=== PATIENT | male | born 1965 | race Caucasian/White ===

== ENCOUNTER → 2017-02-21 | Outpatient (CLI) | payer OTHER ==
[~2017-02-21] MED LIST: ALLO100T PO; AML5T PO; ATR20T PO; GOUT MED; HYDR25TA4 PO; INSU100I14 SQ; INSU100I16 SQ; LSNP10T PO
== END ==
LOC: WOUNDCARE 08:57
PROVIDERS: ATTEND Nurse Practitioner
DX: E11.621 Type 2 diabetes mellitus with foot ulcer (principal); L97.512 Non-pressure chronic ulcer of other part of right foot with fat layer exposed; L03.115 Cellulitis of right lower limb
CPT/HCPCS: 99214

== ENCOUNTER → 2017-02-28 | Outpatient (CLI) | payer OTHER | LOC: WOUNDCARE 09:05 | PROVIDERS: ATTEND Nurse Practitioner | DX: E11.621 Type 2 diabetes mellitus with foot ulcer (principal); L97.512 Non-pressure chronic ulcer of other part of right foot with fat layer exposed; L03.115 Cellulitis of right lower limb | CPT/HCPCS: 11042 ==

== ENCOUNTER → 2017-03-07 | Outpatient (CLI) | payer OTHER | LOC: WOUNDCARE 09:26 | PROVIDERS: ATTEND Nurse Practitioner | DX: E11.621 Type 2 diabetes mellitus with foot ulcer (principal); L97.512 Non-pressure chronic ulcer of other part of right foot with fat layer exposed; L03.115 Cellulitis of right lower limb | CPT/HCPCS: 11042 ==

== ENCOUNTER → 2017-03-14 | Outpatient (CLI) | payer OTHER | LOC: WOUNDCARE 09:18 | PROVIDERS: ATTEND Nurse Practitioner | DX: E11.621 Type 2 diabetes mellitus with foot ulcer (principal); L97.512 Non-pressure chronic ulcer of other part of right foot with fat layer exposed; L03.115 Cellulitis of right lower limb | CPT/HCPCS: 11042 ==

== ENCOUNTER → 2017-03-21 | Outpatient (CLI) | payer OTHER | LOC: WOUNDCARE 09:17 | PROVIDERS: ATTEND Nurse Practitioner | DX: E11.621 Type 2 diabetes mellitus with foot ulcer (principal); L97.512 Non-pressure chronic ulcer of other part of right foot with fat layer exposed | CPT/HCPCS: 11042 ==

== ENCOUNTER → 2017-03-28 | Outpatient (CLI) | payer OTHER | LOC: WOUNDCARE 09:20 | PROVIDERS: ATTEND Nurse Practitioner | DX: E11.621 Type 2 diabetes mellitus with foot ulcer (principal); L97.512 Non-pressure chronic ulcer of other part of right foot with fat layer exposed; L03.115 Cellulitis of right lower limb | CPT/HCPCS: 99212 ==

== ENCOUNTER 2019-08-14 05:38 | Outpatient (CLI) | payer OTHER ==
[~2019-08-14] VITALS: Ht 180.3 cm; Wt 113.6 kg
[2019-08-14] MEDS ORDERED: METF-399 PO (11:53)
[2019-08-14] MEDS ORDERED: ATOR20TA66 PO (11:53)
[2019-08-14] MEDS ORDERED: LISI-552 PO (11:53)
[2019-08-14] MEDS ORDERED: INSU100I14 SQ (11:53)
== END 2019-08-14 11:59 | disposition home or self-care (01) ==
LOC: PREOP 05:38
PROVIDERS: ATTEND Specialist
DX: Z01.818 Encounter for other preprocedural examination (principal)

== ENCOUNTER 2019-08-16 06:41 | Day surgery (SDC) | payer MEDICAID, OTHER ==
[~2019-08-16] VITALS: Ht 180.3 cm; Wt 113.6 kg
[~2019-08-16 06:41] MED LIST changes: +ATOR20TA66 PO; +LISI-552 PO; +METF-399 PO
[2019-08-16] MEDS ORDERED: POVIDONE (BETADINE) OPHTH SOLN 5% 30 ML OP ONE (07:00)
[2019-08-16] MEDS: TETRACAINE 0.5% OPHTH SOLN 4 ML BTL (SINGLE DOSE ONLY) OU PRN ×4 (07:00→07:22)
[2019-08-16] MEDS ORDERED: TIMOLOL MALEATE 0.5% 5 ML (TIMOPTIC) BTL OU PRN (07:00)
[2019-08-16] MEDS ORDERED: LIDOCAINE PF 1% 2 ML VIAL IR PRN (07:00)
[2019-08-16] MEDS ORDERED: MOXIFLOXACIN OPHTH SOLN 5 MG/ML 0.3 ML SYRINGE OP ONE (07:00)
[2019-08-16 07:01] VITALS: BP 140/95
[2019-08-16] MEDS ORDERED: MIDAZOLAM 2 MG/2 ML (VERSED) VIAL ONE ×2 (07:10→08:33)
[2019-08-16] MEDS: PHENYLEPHRINE 10% OPHTH (NEO-SYN) 5 ML BTL OU SCH ×3 (07:11→07:22)
[2019-08-16] MEDS: CYCLOPENTOLATE 1% (CYCLOGYL) 2 ML DROPS OP SCH ×3 (07:11→07:22)
--- NOTE | 2019-08-16 08:28 | Ophthalmologist Pre-Op Note ---
Pre-Operative Progress Note H&P Reviewed The H&P was reviewed, patient examined and no changes noted. Date H&P Reviewed: Aug 16, 2019 Time H&P Reviewed: 08:26 Pre-Op Dx Cataract, Right Eye CHANDU CANO MD Aug 16, 2019 08:26
[2019-08-16] MEDS ORDERED: acetaZOLAMIDE ER 500 MG CAP (DIAMOX SEQUELS) PO ONE (08:30)
[2019-08-16] MEDS ORDERED: proPOfol 200 MG/20 ML (DIPRIVAN) VIAL IV ONE (08:42)
--- NOTE | 2019-08-16 08:49 | Ophthalmology Operative Report ---
Cataract removal/placement IOL PREOPERATIVE DIAGNOSIS: 1. Mature Cataract Right Eye 2. Stain the anterior capsule with Vision Blue. POSTOPERATIVE DIAGNOSIS: 1. Mature Cataract Right Eye 2. Stain the anterior capsule with Vision Blue. PROCEDURE: 1. Cataract removal and placement of posterior chamber implant, right eye. 2. Stain the anterior capsule with Vision Blue. SURGEON: Everette Cano ANESTHESIA: Topical with sedation COMPLICATIONS: None ESTIMATED BLOOD LOSS: Minimal DESCRIPTION OF PROCEDURE: After proper informed consent was obtained, the patient was taken to the Operating Room and the right eye was anesthetized with tetracaine. The right eye was then prepped and draped in the usual manner. A wire lid speculum was placed. A paracentesis was made at the left hand position. Preservative free lidocaine was injected into anterior chamber followed by viscoelastic. A clear corneal incision was made in the temporal position. A capsulorrhexis was performed and the central nuclear and cortical material were removed. Vision blue was used to visualize capsule. The posterior capsule was polished and Nirmal 20.0 AU00T0 IOL was placed into the capsular bag. The residual viscoela stic was aspirated and balanced saline solution was injected into the anterior chamber. Moxifloxacin was injected into the anterior chamber. The wound was checked and found to be water tight. The patient tolerated the procedure well without complications. EVERETTE CANO MD Aug 16, 2019 08:49
[2019-08-16 09:20] VITALS: BP 158/92
== END 2019-08-16 09:20 | disposition home or self-care (01) ==
LOC: SDC 06:41
PROVIDERS: ATTEND Specialist
DX: E11.36 Type 2 diabetes mellitus with diabetic cataract (principal); H25.89 Other age-related cataract; I10 Essential (primary) hypertension; E78.00 Pure hypercholesterolemia, unspecified; E78.5 Hyperlipidemia, unspecified; F17.210 Nicotine dependence, cigarettes, uncomplicated; Z79.4 Long term (current) use of insulin
CPT/HCPCS: 82962

== ENCOUNTER 2019-11-05 09:05 | Outpatient (RCR) | payer MEDICAID ==
[~2019-11-05] VITALS: Ht 180.3 cm; Wt 113.6 kg
== END 2019-11-05 15:49 | disposition home or self-care (01) ==
LOC: PREOP 09:05
PROVIDERS: ATTEND Specialist
DX: Z01.818 Encounter for other preprocedural examination (principal); Z11.59 Encounter for screening for other viral diseases
CPT/HCPCS: 87635

== ENCOUNTER 2019-11-08 07:36 | Day surgery (SDC) | payer MEDICAID, OTHER ==
[~2019-11-08] VITALS: Ht 180.3 cm; Wt 113.6 kg
[2019-11-08] MEDS ORDERED: MOXIFLOXACIN OPHTH SOLN 5 MG/ML 0.3 ML SYRINGE OP ONE (07:45)
[2019-11-08] MEDS ORDERED: LIDOCAINE PF 1% 2 ML VIAL IR PRN (07:45)
[2019-11-08] MEDS ORDERED: POVIDONE (BETADINE) OPHTH SOLN 5% 30 ML OP ONE (07:45)
[2019-11-08] MEDS ORDERED: TIMOLOL MALEATE 0.5% 5 ML (TIMOPTIC) BTL OU PRN (07:45)
[2019-11-08 07:52] VITALS: BP 149/107
[2019-11-08] MEDS: TETRACAINE 0.5% OPHTH SOLN 4 ML BTL (SINGLE DOSE ONLY) OU PRN ×4 (07:54→08:17)
[2019-11-08] MEDS: CYCLOPENTOLATE 1% (CYCLOGYL) 2 ML DROPS OP SCH ×3 (08:05→08:17)
[2019-11-08] MEDS: PHENYLEPHRINE 10% OPHTH (NEO-SYN) 5 ML BTL OU SCH ×3 (08:05→08:17)
[2019-11-08] MEDS ORDERED: acetaZOLAMIDE ER 500 MG CAP (DIAMOX SEQUELS) PO ONE (08:30)
[2019-11-08] MEDS ORDERED: MIDAZOLAM 2 MG/2 ML (VERSED) VIAL ONE (08:44)
--- NOTE | 2019-11-08 08:48 | Ophthalmologist Pre-Op Note ---
Pre-Operative Progress Note H&P Reviewed The H&P was reviewed, patient examined and no changes noted. Date H&P Reviewed: November 08, 2019 Time H&P Reviewed: 08:48 Pre-Op Dx Cataract, Left Eye CHANDU CANO MD November 08, 2019 08:48
--- NOTE | 2019-11-08 09:14 | Ophthalmology Operative Report ---
Cataract removal/placement IOL PREOPERATIVE DIAGNOSIS: 1. Mature Cataract Left Eye 2. Stain the anterior capsule with Vision Blue. POSTOPERATIVE DIAGNOSIS: 1. Mature Cataract Left Eye 2. Stain the anterior capsule with Vision Blue. PROCEDURE: 1. Cataract removal and placement of posterior chamber implant, left eye. 2. Stain the anterior capsule with Vision Blue. SURGEON: Everette Cano ANESTHESIA: Topical with sedation COMPLICATIONS: None ESTIMATED BLOOD LOSS: Minimal DESCRIPTION OF PROCEDURE: After proper informed consent was obtained, the patient, 54 male ,was taken to the Operating Room and the left eye was anesthetized with tetracaine. The left eye was then prepped and draped in the usual manner. A wire lid speculum was placed. A paracentesis was made at the left hand position. Preservative free lidocaine was injected into anterior chamber followed by viscoelastic. A clear corneal incision was made in the temporal position. A capsulorrhexis was performed and the central nuclear and cortical material were removed. Vision blue was used to visualize capsule. The posterior capsule was polished and Nirmal AU00T0 19.5 IOL was placed into the capsular bag. The residual vis coelastic was aspirated and balanced saline solution was injected into the anterior chamber. Moxifloxacin was injected into the anterior chamber. The wound was checked and found to be water tight. The patient tolerated the procedure well without complications. EVERETTE CANO MD November 08, 2019 09:13
[2019-11-08 09:20] VITALS: BP 140/98
--- NOTE | 2019-11-08 12:39 | Anesthesia-General Post-Op ---
MAC Patient Condition Mental Status/LOC: Same as Preop Cardiovascular: Satisfactory Nausea/Vomiting: Absent Respiratory: Satisfactory Pain: Controlled Complications: Absent Post Op Complications Complications None Follow Up Care/Instructions Patient Instructions None needed. Anesthesiology Discharge Order Discharge Order Patient is doing well, no complaints, stable vital signs, no apparent adverse anesthesia problems. No complications reported per nursing. NILS DODD CRNA November 08, 2019 12:39
== END 2019-11-08 09:20 | disposition home or self-care (01) ==
LOC: SDC 07:36
PROVIDERS: ATTEND Specialist
DX: E11.36 Type 2 diabetes mellitus with diabetic cataract (principal); H25.12 Age-related nuclear cataract, left eye; E78.5 Hyperlipidemia, unspecified; E78.00 Pure hypercholesterolemia, unspecified; I10 Essential (primary) hypertension; F17.200 Nicotine dependence, unspecified, uncomplicated; Z79.899 Other long term (current) drug therapy; Z79.84 Long term (current) use of oral hypoglycemic drugs
CPT/HCPCS: 82962

== ENCOUNTER 2019-11-10 03:14 | Inpatient (IN) | payer MEDICAID ==
[~2019-11-10] VITALS: Ht 180.3 cm; Wt 162.4 kg
[2019-11-10] VITALS (17 sets, daily range): BP systolic 97–150; BP diastolic 61–101
--- OUTSIDE RECORDS SUMMARY | 2019-11-10 03:19 | XMS REPORT ---
Author Author Delon CAROLINA Organization [facility] Address [address] [place] [address] Care Team Providers Care Line Up Worker Name Role Phone VILLA CAROLINA Unavailable PROBLEMS Unknown Problems ALLERGIES No Known Allergies ENCOUNTERS Encounter Location Date Diagnosis [facility] [address] [facility] [id number] [place] [address] October, Pain of left middle finger M 79.645 IMMUNIZATIONS Vaccine Route Administration Date Status ROCEPHIN 1 GM (IM) IM Intramuscular October 26, 2017 Administered SOCIAL HISTORY Never Assessed REASON FOR VISIT infected finger Pt c/o swollen middle finger on L hand for several days Iza ndiaye MA PLAN OF CARE Activity Details Follow Up prn Reason: VITAL SIGNS Weight 296.4 lbs 2017-10-26 Temperature 97.9 degrees Fahrenheit 2017-10-26 Heart Rate 90 bpm 2017-10-26 Respiratory Rate 20 2017-10-26 Blood pressure systolic 136 mmHg 2017-10-26 Blood pressure diastolic 76 mmHg 2017-10-26 MEDICATIONS Medication Instructions Dosage Frequency Start Date End Date Duration S tatus Bactrim DS 800-160 MG Orally Twice a day starting tomorrow . 1 tabl et October, October, 10 day(s) Active Ibuprofen 800 MG Orally Three times a day 1 tablet with food or milk as needed 8h October, Active RESULTS No Results PROCEDURES Procedure Date Ordered Result Body Site ROCEPHIN 1 GM (IM) October 26, 2017 THER/PROPH/DIAG INJ, SC/IM October 26, 2017 INSTRUCTIONS MEDICATIONS ADMINISTERED No Known Medications MEDICAL (GENERAL) HISTORY Type Description Date Medical History htn Medical History dm Medical History high cholesterol Medical History gout
--- OUTSIDE RECORDS SUMMARY | 2019-11-10 03:19 | XMS REPORT | Continuity of Care Document ---
Author Organization Unknown Address Unknown Phone Unavailable Allergies Active Description Code Type Severity Reaction Onset Reported/Identified Relationship to Patient Clinical Status Yes NO KNOWN DRUG ALLERGIES UNKNOWN NO KNOWN DRUG ALLERG Yes NO KNOWN DRUG ALLERGIES UNKNOWN UNKNOWN Yes No Known Drug Allergies [id number] Drug Allergy Unknown N/A 02/26/2014 Medications There is no data. Problems Date Dx Coded Attending Type Code Diagnosis Diagnosed By 05/11/1548 JEROME CHAIDEZ, CHANDU Briggs Ot Z01.818 ENCOUNTER FOR OTHER PREPROCEDURAL EXAMIN 05/11/1548 CHANDU CANO MD Ot Z11.59 ENCOUNTER FOR SCREENING FOR OTHER VIRAL 03/03/2014 EUSEBIO GILL DOI Ot 250.62 DIAB W NEURO MANIFEST, TYPE II OR UNSPEC 03/03/2014 JAIRO COREY GAYATRI Ot 274.9 GOUT NOS 03/03/2014 JAIRO COREY GAAYTRI Ot 276.1 HYPOSMOLALITY 03/03/2014 JAIRO COREY GAYATRI Ot 278.01 MORBID OBESITY 03/03/2014 JAIRO COREY GAYATRI Ot 278.03 OBESITY HYPOVENTILATION SYNDROME 03/03/2014 JAIRO COREY GAYATRI Ot 289.0 SECONDARY POLYCYTHEMIA 03/03/2014 JAIRO COREY GAYATRI Ot 327.23 OBSTRUCTIVE SLEEP APNEA (ADULT) (PEDIATR 03/03/2014 JAIRO COREY GAYATRI Ot 344.1 PARAPLEGIA NOS 03/03/2014 JAIRO COREY GAYATRI Ot 357.2 NEUROPATHY IN DIABETES 03/03/2014 JAIRO COREY GAYATRI Ot 401.9 HYPERTENSION NOS 03/03/2014 JAIRO COREY GAYATRI Ot 457.1 OTHER LYMPHEDEMA 03/03/2014 JAIRO COREY AGYATRI Ot 459.81 VENOUS INSUFFICIENCY NOS 03/03/2014 JAIRO COREY GAYATRI Ot 584.9 ACUTE RENAL FAILURE, UNSPECIFIED 03/03/2014 JAIRO COREY GAYATRI Ot 682.6 CELLULITIS OF LEG 03/03/2014 JAIRO COREY GAYATRI Ot 706.3 SEBORRHEA 03/03/2014 GILLGAYATRI KNIGHT DO Ot 707.10 ULCER OF LOWER LIMB NOS 03/03/2014 GILLGAYATRI KNIGHT DO Ot 733.90 BONE CARTILAGE DIS NOS 03/03/2014 GILLGAYATRI KNIGHT DO Ot 788.30 UNSPECIFIED URINARY INCONTINENCE 03/03/2014 GILLGAYATRI KNIGHT DO Ot V03.82 PROPHYLACTIC VACC AGAINST STREPTOCOCCUS 03/03/2014 GILLGAYATRI KNIGHT DO Ot V15.82 HISTORY OF TOBACCO USE 03/03/2014 GAYATRI GILL DO Ot V85.43 BODY MASS INDEX 50.0-59.9, ADULT 01/31/2017 W 250.90 ISRAEL BETES MELLITUS WITH UNSPECIFIED COMPLICATION, TYPE II OR UNSPECIFIED TYPE, NOT STATED UNCONTROLLED 01/31/2017 W 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 01/31/2017 W 401.9 UNSP ECIFIED ESSENTIAL HYPERTENSION 01/31/2017 W 681.10 EUNICE LULITIS AND ABSCESS OF TOE, UNSPECIFIED 01/31/2017 W E11.8 TYPE 2 DIABETES MELLITUS WITH UNSPECIFIED COMPLICATIONS 01/31/2017 W E78.5 HYPE RLIPIDEMIA, UNSPECIFIED 01/31/2017 W I10 ESSENT IAL (PRIMARY) HYPERTENSION 01/31/2017 W L03.031 CE LLULITIS OF RIGHT TOE 02/02/2017 Adelina Anderson W 250.92 DIABETES MELLITUS WITH UNSPECIFIED COMPLICATION, TYPE II OR UNSPECIFIED TYPE, UNCONTROLLED 02/02/2017 Adelina Anderson W 272.8 OTHER DISORDERS OF LIPOID METABOLISM 02/02/2017 Adelina Anderson W 401.9 UNSPECIFIED ESSENTIAL HYPERTENSION 02/02/2017 Adelina Anderson W 681.10 CELLULITIS AND ABSCESS OF TOE, UNSPECIFIED 02/02/2017 Adelina Anderson W E11.8 TYPE 2 DIABETES MELLITUS WITH UNSPECIFIED COMPLICATIONS 02/02/2017 Adelina Anderson W E78.5 HYPERLIPIDEMIA, UNSPECIFIED 02/02/2017 Adelina Anderson W I10 ESSENTIAL (PRIMARY) HYPERTENSION 02/02/2017 Adelina Anderson W L03.031 CELLULITIS OF RIGHT TOE 02/02/2017 W 250.92 ISRAEL BETES MELLITUS WITH UNSPECIFIED COMPLICATION, TYPE II OR UNSPECIFIED TYPE, UNCONTROLLED 02/02/2017 W 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 02/02/2017 W 401.9 UNSP ECIFIED ESSENTIAL HYPERTENSION 02/02/2017 W 681.10 EUNICE LULITIS AND ABSCESS OF TOE, UNSPECIFIED 02/02/2017 W E11.8 TYPE 2 DIABETES MELLITUS WITH UNSPECIFIED COMPLICATIONS 02/02/2017 W E78.5 HYPE RLIPIDEMIA, UNSPECIFIED 02/02/2017 W I10 ESSENT IAL (PRIMARY) HYPERTENSION 02/02/2017 W L03.031 CE LLULITIS OF RIGHT TOE 02/02/2017 W V15.81 PER CASSIE HISTORY OF NONCOMPLIANCE WITH MEDICAL TREATMENT, PRESENTING HAZARDS TO HEALTH 02/02/2017 W Z91.19 PAT IENT'S NONCOMPLIANCE WITH OTHER MEDICAL TREATMENT AND REGIMEN 02/07/2017 W 250.92 ISRAEL BETES MELLITUS WITH UNSPECIFIED COMPLICATION, TYPE II OR UNSPECIFIED TYPE, UNCONTROLLED 02/07/2017 A 681.10 EUNICE LULITIS AND ABSCESS OF TOE, UNSPECIFIED 02/07/2017 W E11.8 TYPE 2 DIABETES MELLITUS WITH UNSPECIFIED COMPLICATIONS 02/07/2017 A L03.031 CE LLULITIS OF RIGHT TOE 02/10/2017 W 250.90 ISRAEL BETES MELLITUS WITH UNSPECIFIED COMPLICATION, TYPE II OR UNSPECIFIED TYPE, NOT STATED UNCONTROLLED 02/10/2017 W 681.10 EUNICE LULITIS AND ABSCESS OF TOE, UNSPECIFIED 02/10/2017 W E11.8 TYPE 2 DIABETES MELLITUS WITH UNSPECIFIED COMPLICATIONS 02/10/2017 W L03.031 CE LLULITIS OF RIGHT TOE 02/16/2017 W 249.60 SEC ONDARY DIABETES MELLITUS WITH NEUROLOGICAL MANIFESTATIONS, NOT STATED UNCONTROLLED, OR UNSPECIFIED 02/16/2017 W 250.80 ISRAEL BETES MELLITUS WITH OTHER SPECIFIED MANIFESTATIONS, TYPE II OR UNSPECIFIED TYPE, NOT STATED UNCONTROLLED 02/16/2017 W 681.10 EUNICE LULITIS AND ABSCESS OF TOE, UNSPECIFIED 02/16/2017 W E08.40 ISRAEL BETES MELLITUS DUE TO UNDERLYING CONDITION WITH DIABETIC NEUROPATHY, UNSPECIFIED 02/16/2017 W E11.621 TY PE 2 DIABETES MELLITUS WITH FOOT ULCER 02/16/2017 W E11.69 TYP E 2 DIABETES MELLITUS WITH OTHER SPECIFIED COMPLICATION 02/16/2017 W L03.031 CE LLULITIS OF RIGHT TOE 02/16/2017 W V15.81 PER CASSIE HISTORY OF NONCOMPLIANCE WITH MEDICAL TREATMENT, PRESENTING HAZARDS TO HEALTH 02/16/2017 W Z91.14 PAT IENT'S OTHER NONCOMPLIANCE WITH MEDICATION REGIMEN 03/01/2017 JEANE DE GUZMAN BASS SINGER Ot E11.621 TYPE 2 DIABETES MELLITUS WITH FOOT ULCER 03/01/2017 JEANE DE GUZMAN BASS SINGER Ot L03.115 CELLULITIS OF RIGHT LOWER LIMB 03/01/2017 JEANE DE GUZMAN BASS SINGER Ot L97.512 NON-PRS CHRONIC ULCER OTH PRT RIGHT FOOT 03/13/2017 JEANE DE GUZMAN APRN Ot E11.621 TYPE 2 DIABETES MELLITUS WITH FOOT ULCER 03/13/2017 JEANE DE GUZMAN BASS SINGER Ot L03.115 CELLULITIS OF RIGHT LOWER LIMB 03/13/2017 JEANE DE GUZMAN BASS SINGER Ot L97.512 NON-PRS CHRONIC ULCER OTH PRT RIGHT FOOT 03/14/2017 JEANE DE GUZMAN BASS SINGER Ot E11.621 TYPE 2 DIABETES MELLITUS WITH FOOT ULCER 03/14/2017 JEANE DE GUZMAN BASS SINGER Ot L03.115 CELLULITIS OF RIGHT LOWER LIMB 03/14/2017 JEANE DE GUZMAN APRN Ot L97.512 NON-PRS CHRONIC ULCER OTH PRT RIGHT FOOT 2017 JEANE DE GUZMAN BASS SINGER Ot E11.621 TYPE 2 DIABETES MELLITUS WITH FOOT ULCER 2017 JEANE DE GUZMAN BASS SINGER Ot L03.115 CELLULITIS OF RIGHT LOWER LIMB 2017 JEANE DE GUZMAN APRN Ot L97.512 NON-PRS CHRONIC ULCER OTH PRT RIGHT FOOT 03/24/2017 W 249.80 SEC ONDARY DIABETES MELLITUS WITH OTHER SPECIFIED MANIFESTATIONS, NOT STATED UNCONTROLLED, OR UNSPECIFIED 03/24/2017 W 250.80 ISRAEL BETES MELLITUS WITH OTHER SPECIFIED MANIFESTATIONS, TYPE II OR UNSPECIFIED TYPE, NOT STATED UNCONTROLLED 03/24/2017 W E08.621 DI ABETES MELLITUS DUE TO UNDERLYING CONDITION WITH FOOT ULCER 03/24/2017 W E11.4 TYPE 2 DIABETES MELLITUS WITH NEUROLOGICAL COMPLICATIONS 03/24/2017 W E11.65 TYP E 2 DIABETES MELLITUS WITH HYPERGLYCEMIA 03/28/2017 JEANE DE GUZMAN BASS SINGER Ot E11.621 TYPE 2 DIABETES MELLITUS WITH FOOT ULCER 03/28/2017 JEANE DE GUZMAN BASS SINGER Ot L03.115 CELLULITIS OF RIGHT LOWER LIMB 03/28/2017 JEANE DE GUZMAN BASS SINGER Ot L97.512 NON-PRS CHRONIC ULCER OTH PRT RIGHT FOOT 04/05/2017 JEANE DE GUZMAN APRN Ot E11.621 TYPE 2 DIABETES MELLITUS WITH FOOT ULCER 04/05/2017 JEANE DE GUZMAN APRN Ot L03.115 CELLULITIS OF RIGHT LOWER LIMB 04/05/2017 JEANE DE GUZMAN APRN Ot L97.512 NON-PRS CHRONIC ULCER OTH PRT RIGHT FOOT 04/06/2017 W 250.80 ISRAEL BETES MELLITUS WITH OTHER SPECIFIED MANIFESTATIONS, TYPE II OR UNSPECIFIED TYPE, NOT STATED UNCONTROLLED 04/06/2017 W 250.90 ISRAEL BETES MELLITUS WITH UNSPECIFIED COMPLICATION, TYPE II OR UNSPECIFIED TYPE, NOT STATED UNCONTROLLED 04/06/2017 W 681.10 EUNICE LULITIS AND ABSCESS OF TOE, UNSPECIFIED 04/06/2017 W E11.621 TY PE 2 DIABETES MELLITUS WITH FOOT ULCER 04/06/2017 W E11.8 TYPE 2 DIABETES MELLITUS WITH UNSPECIFIED COMPLICATIONS 04/06/2017 W L03.031 CE LLULITIS OF RIGHT TOE 04/06/2017 W V15.81 PER CASSIE HISTORY OF NONCOMPLIANCE WITH MEDICAL TREATMENT, PRESENTING HAZARDS TO HEALTH 04/11/2017 JEANE DE GUZMAN APRN Ot E11.621 TYPE 2 DIABETES MELLITUS WITH FOOT ULCER 04/11/2017 JEANE DE GUZMAN APRN Ot L97.512 NON-PRS CHRONIC ULCER OTH PRT RIGHT FOOT 05/10/2017 W 250.80 ISRAEL BETES MELLITUS WITH OTHER SPECIFIED MANIFESTATIONS, TYPE II OR UNSPECIFIED TYPE, NOT STATED UNCONTROLLED 05/10/2017 W 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 05/10/2017 W 278.00 OBE SITY, UNSPECIFIED 05/10/2017 W 401.9 UNSP ECIFIED ESSENTIAL HYPERTENSION 05/10/2017 W E11.621 TY PE 2 DIABETES MELLITUS WITH FOOT ULCER 05/10/2017 W E66.9 OBES ITY, UNSPECIFIED 05/10/2017 W E78.5 HYPE RLIPIDEMIA, UNSPECIFIED 05/10/2017 W I10 ESSENT IAL (PRIMARY) HYPERTENSION 05/10/2017 W V15.81 PER CASSIE HISTORY OF NONCOMPLIANCE WITH MEDICAL TREATMENT, PRESENTING HAZARDS TO HEALTH 05/10/2017 W Z91.14 PAT IENT'S OTHER NONCOMPLIANCE WITH MEDICATION REGIMEN 05/11/2017 Rhiannon Pro W 272.8 OTHER DISORDERS OF LIPOID METABOLISM 05/11/2017 Rhiannon Pro W E78.5 HYPERLIPIDEMIA, UNSPECIFIED 05/11/2017 Pro, Rhiannon W 272.8 OTHER DISORDERS OF LIPOID METABOLISM 05/11/2017 Pro, Rhiannon W 401.9 UNSPECIFIED ESSENTIAL HYPERTENSION 05/11/2017 Pro, Rhiannon W E78.5 HYPERLIPIDEMIA, UNSPECIFIED 05/11/2017 Pro, Jasonu W I10 ESSENTIAL (PRIMARY) HYPERTENSION 05/11/2017 Pro, Rhiannon W 250.00 DIABETES MELLITUS WITHOUT MENTION OF COMPLICATION, TYPE II OR UNSPECIFIED TYPE, NOT STATED UNCONTROLLED 05/11/2017 Pro, Rhiannon W 272.8 OTHER DISORDERS OF LIPOID METABOLISM 05/11/2017 Pro, Rhiannon W 401.9 UNSPECIFIED ESSENTIAL HYPERTENSION 05/11/2017 Pro, Rhiannon W E11.9 TYPE 2 DIABETES MELLITUS WITHOUT COMPLICATIONS 05/11/2017 Pro, Rhiannon W E78.5 HYPERLIPIDEMIA, UNSPECIFIED 05/11/2017 Pro, Rhiannon W I10 ESSENTIAL (PRIMARY) HYPERTENSION 05/11/2017 W 250.00 ISRAEL BETES MELLITUS WITHOUT MENTION OF COMPLICATION, TYPE II OR UNSPECIFIED TYPE, NOT STATED UNCONTROLLED 05/11/2017 W 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 05/11/2017 W 401.9 UNSP ECIFIED ESSENTIAL HYPERTENSION 05/11/2017 W E11.9 TYPE 2 DIABETES MELLITUS WITHOUT COMPLICATIONS 05/11/2017 W E78.5 HYPE RLIPIDEMIA, UNSPECIFIED 05/11/2017 W I10 ESSENT IAL (PRIMARY) HYPERTENSION 05/11/2017 Pro, Rhiannon W 250.00 DIABETES MELLITUS WITHOUT MENTION OF COMPLICATION, TYPE II OR UNSPECIFIED TYPE, NOT STATED UNCONTROLLED 05/11/2017 Pro, Rhiannon W 272.8 OTHER DISORDERS OF LIPOID METABOLISM 05/11/2017 Pro, Rhiannon W 401.9 UNSPECIFIED ESSENTIAL HYPERTENSION 05/11/2017 Pro, Rhiannon W E11.9 TYPE 2 DIABETES MELLITUS WITHOUT COMPLICATIONS 05/11/2017 Pro, Rhiannon W E78.5 HYPERLIPIDEMIA, UNSPECIFIED 05/11/2017 Pro, Jasonu W I10 ESSENTIAL (PRIMARY) HYPERTENSION 11/24/2017 W 112.3 CAND IDIASIS OF SKIN AND NAILS 11/24/2017 W 250.80 ISRAEL BETES MELLITUS WITH OTHER SPECIFIED MANIFESTATIONS, TYPE II OR UNSPECIFIED TYPE, NOT STATED UNCONTROLLED 11/24/2017 W 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 11/24/2017 W 278.00 OBE SITY, UNSPECIFIED 11/24/2017 W 305.1 TOBA SCLEROSCOPE TESTER USE DISORDER 11/24/2017 W 401.9 UNSP ECIFIED ESSENTIAL HYPERTENSION 11/24/2017 W B37.2 CAND IDIASIS OF SKIN AND NAIL 11/24/2017 W E11.65 TYP E 2 DIABETES MELLITUS WITH HYPERGLYCEMIA 11/24/2017 W E66.9 OBES ITY, UNSPECIFIED 11/24/2017 W E78.5 HYPE RLIPIDEMIA, UNSPECIFIED 11/24/2017 W I10 ESSENT IAL (PRIMARY) HYPERTENSION 11/24/2017 W V15.81 PER CASSIE HISTORY OF NONCOMPLIANCE WITH MEDICAL TREATMENT, PRESENTING HAZARDS TO HEALTH 11/24/2017 W Z72.0 TOBA SCLEROSCOPE TESTER USE 11/24/2017 W Z91.14 PAT IENT'S OTHER NONCOMPLIANCE WITH MEDICATION REGIMEN 11/24/2017 W Z91.19 PAT IENT'S NONCOMPLIANCE WITH OTHER MEDICAL TREATMENT AND REGIMEN 08/14/2019 JEROME CHAIDEZ, CHANDU L Ot Z01.818 ENCOUNTER FOR OTHER PREPROCEDURAL EXAMIN 08/14/2019 JEANE DE GUZMAN APRN Ot E11.621 TYPE 2 DIABETES MELLITUS WITH FOOT ULCER 08/14/2019 JEANE DE GUZMAN APRN Ot L03.115 CELLULITIS OF RIGHT LOWER LIMB 08/14/2019 JEANE DE GUZMAN APRN Ot L97.512 NON-PRS CHRONIC ULCER OTH PRT RIGHT FOOT 08/14/2019 JEANE DE GUZMAN APRN Ot E11.621 TYPE 2 DIABETES MELLITUS WITH FOOT ULCER 08/14/2019 JEANE DE GUZMAN APRN Ot L03.115 CELLULITIS OF RIGHT LOWER LIMB 08/14/2019 JEANE DE GUZMAN APRN Ot L97.512 NON-PRS CHRONIC ULCER OTH PRT RIGHT FOOT 08/14/2019 JEANE DE GUZMAN APRN Ot E11.621 TYPE 2 DIABETES MELLITUS WITH FOOT ULCER 08/14/2019 JEANE DE GUZMAN APRN Ot L03.115 CELLULITIS OF RIGHT LOWER LIMB 08/14/2019 GEGE, JEANE R BASS SINGER Ot L97.512 NON-PRS CHRONIC ULCER OTH PRT RIGHT FOOT 08/14/2019 GEGE, JEANE R BASS SINGER Ot E11.621 TYPE 2 DIABETES MELLITUS WITH FOOT ULCER 08/14/2019 GEGE, JEANE R BASS SINGER Ot L03.115 CELLULITIS OF RIGHT LOWER LIMB 08/14/2019 GEGE, JEANE R BASS SINGER Ot L97.512 NON-PRS CHRONIC ULCER OTH PRT RIGHT FOOT 08/14/2019 GEGE, JEANE R BASS SINGER Ot E11.621 TYPE 2 DIABETES MELLITUS WITH FOOT ULCER 08/14/2019 GEGE, JEANE R BASS SINGER Ot L97.512 NON-PRS CHRONIC ULCER OTH PRT RIGHT FOOT 08/14/2019 GEGE, JEANE R BASS SINGER Ot E11.621 TYPE 2 DIABETES MELLITUS WITH FOOT ULCER 08/14/2019 GEGE, JEANE R BASS SINGER Ot L03.115 CELLULITIS OF RIGHT LOWER LIMB 08/14/2019 GEGE JEANE R BASS SINGER Ot L97.512 NON-PRS CHRONIC ULCER OTH PRT RIGHT FOOT 08/16/2019 CHANDU CANO MD Ot E11.36 TYPE 2 DIABETES MELLITUS WITH DIABETIC C 08/16/2019 CHANDU CANO MD Ot E78.00 PURE HYPERCHOLESTEROLEMIA, UNSPECIFIED 08/16/2019 CHANDU CANO MD Ot E78 .5 HYPERLIPIDEMIA, UNSPECIFIED 08/16/2019 CHANDU CANO MD Ot F17.210 NICOTINE DEPENDENCE, CIGARETTES, UNCOMPL 08/16/2019 CHANDU CANO MD Ot H25.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 08/16/2019 CHANDU CANO MD Ot I10 ESSENTIAL (PRIMARY) HYPERTENSION 08/16/2019 CHANDU CANO MD Ot 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 08/20/2019 CHANDU CANO MD Ot E11.36 TYPE 2 DIABETES MELLITUS WITH DIABETIC C 08/20/2019 CHANDU CANO MD Ot E78.00 PURE HYPERCHOLESTEROLEMIA, UNSPECIFIED 08/20/2019 CHANDU CANO MD Ot E78 .5 HYPERLIPIDEMIA, UNSPECIFIED 08/20/2019 CHANDU CANO MD Ot F17.210 NICOTINE DEPENDENCE, CIGARETTES, UNCOMPL 08/20/2019 CHANDU CANO MD Ot H25.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 08/20/2019 CHANDU CANO MD Ot I10 ESSENTIAL (PRIMARY) HYPERTENSION 08/20/2019 CHANDU CANO MD Ot 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 09/09/2019 JEANE DE GUZMAN R BASS SINGER Ot E11.621 TYPE 2 DIABETES MELLITUS WITH FOOT ULCER 09/09/2019 JEANE DE GUZMAN R BASS SINGER Ot L03.115 CELLULITIS OF RIGHT LOWER LIMB 09/09/2019 JEANE DE GUZMAN R BASS SINGER Ot L97.512 NON-PRS CHRONIC ULCER OTH PRT RIGHT FOOT 09/09/2019 GEGE JEANE R BASS SINGER Ot E11.621 TYPE 2 DIABETES MELLITUS WITH FOOT ULCER 09/09/2019 GEGE JEANE R BASS SINGER Ot L03.115 CELLULITIS OF RIGHT LOWER LIMB 09/09/2019 GEGE JEANE R BASS SINGER Ot L97.512 NON-PRS CHRONIC ULCER OTH PRT RIGHT FOOT 09/09/2019 JEANE DE GUZMAN R BASS SINGER Ot E11.621 TYPE 2 DIABETES MELLITUS WITH FOOT ULCER 09/09/2019 GEGE JEANE R BASS SINGER Ot L03.115 CELLULITIS OF RIGHT LOWER LIMB 09/09/2019 GEGE JEANE R BASS SINGER Ot L97.512 NON-PRS CHRONIC ULCER OTH PRT RIGHT FOOT 09/09/2019 JEANE DE GUZMAN R BASS SINGER Ot E11.621 TYPE 2 DIABETES MELLITUS WITH FOOT ULCER 09/09/2019 GEGE JEANE R BASS SINGER Ot L03.115 CELLULITIS OF RIGHT LOWER LIMB 09/09/2019 GEGE JEANE R BASS SINGER Ot L97.512 NON-PRS CHRONIC ULCER OTH PRT RIGHT FOOT 09/09/2019 JEANE DE GUZMAN R BASS SINGER Ot E11.621 TYPE 2 DIABETES MELLITUS WITH FOOT ULCER 09/09/2019 GEGE JEANE R BASS SINGER Ot L97.512 NON-PRS CHRONIC ULCER OTH PRT RIGHT FOOT 09/09/2019 GEGE JEANE R BASS SINGER Ot E11.621 TYPE 2 DIABETES MELLITUS WITH FOOT ULCER 09/09/2019 GEGE JEANE R BASS SINGER Ot L03.115 CELLULITIS OF RIGHT LOWER LIMB 09/09/2019 GEGE JEANE R BASS SINGER Ot L97.512 NON-PRS CHRONIC ULCER OTH PRT RIGHT FOOT Procedures There is no data. Results Test Result Range CBC with Auto Diff - 07/21/16 08:05 Baso% 0.40 % 0.00-2.50 Eos 0.1 K/uL 0.0-0.7 Eos% 0.7 % 0.0-7.0 Hct 52.3 % 42.0-52.0 Hgb 17.3 g/dL 14.0-17.0 Lym 2.18 K/uL 0.60-3.40 Lym% 20.6 % 10.0-50.0 MCH 27.9 pg 27.0-31.2 MCHC 33.1 g/dL 32.0-36.0 MCV 84.2 fL 80.0-97.0 Knox% 6.6 % 0.0-12.0 MPV 11.9 fL 7.4-10.0 Flaquito% 71.7 % 37.0-80.0 Plt 208 K/uL 150-400 RBC 6.21 M/uL 4.20-5.40 RDW 15.3 % 11.6-14.8 WBC 10.59 K/uL 5.00-10.00 Flaquito 7.60 K/uL 2.00-6.90 Knox 0.7 K/uL 0.0-0.9 Baso 0.0 K/uL 0.0-0.2 Hemoglobin A1C - 07/21/16 08:05 % A1C 14.30 Result Verified by Repeat Analysis % 5.40-6.60 AvGlu 432 mg/dL 70-110 Hemoglobin A1C - 02/02/17 09:30 % A1C 15.30 % 5.40-6.60 AvGlu 466 mg/dL 70-110 Microalb/Creat - 05/11/17 08:05 Microalb 60.0 mg/L 0.0-20.0 UMicroalb/UCreat 95.33 mg/g 0.00-100.00 Urine Creatinine 62.9 mg/dl 0.0-50.0 CMP - 03/22/19 14:58 GLUCOSE 457 mg/dL 65-99 UREA NITROGEN (BUN) 23 mg/dL 7-25 CREATININE 0.68 mg/dL 0.70-1.33 eGFR NON-AFR. [place] 108 mL/min/1.73m2 > OR = 60 eGFR 125 mL/min/1.73m2 > OR = 60 BUN/CREATININE RATIO 34 (calc) 6-22 SODIUM 138 mmol/L 135-146 POTASSIUM 4.2 mmol/L 3.5-5.3 CHLORIDE 100 mmol/L 98-110 CARBON DIOXIDE 25 mmol/L 20-32 CALCIUM 9.9 mg/dL 8.6-10.3 PROTEIN, TOTAL 7.0 g/dL 6.1-8.1 ALBUMIN 4.0 g/dL 3.6-5.1 GLOBULIN 3.0 g/dL (calc) 1.9-3.7 ALBUMIN/GLOBULIN RATIO 1.3 (calc) 1.0-2. 5 BILIRUBIN, TOTAL 0.4 mg/dL 0.2-1.2 ALKALINE PHOSPHATASE 99 U/L 40-115 AST 7 U/L 10-35 ALT 11 U/L 9-46 Capillary blood glucose measurement by g lucometer (mass/volume) - 08/16/19 07:08 Capillary blood glucose measurement by glucometer (mas s/volume) 142 mg/dL 70-110 Coronavirus SARS-CoV-2 SO 2018 - 0 12:55 Coronavirus Ab [Units/volume] in Serum Negative Negative Capillary blood glucose measurement by g lucometer (mass/volume) - 11/08/19 07:54 Capillary blood glucose measurement by glucometer (mas s/volume) 155 mg/dL 70-110 Encounters ACCT No. Visit Date/Time Discharge Status Pt. Type Provider Facility Loc./Unit Complaint [id number] 2019 14:00:00 2019 23:59: 59 [facility] [id number] 2019 14:00:00 Document Registration [id number] 05/11/2017 09:06:00 05/11/2017 23:59: 00 DIS Outpatient Rhiannon Pro [id number] 02/02/2017 11:52:00 02/02/2017 23:59: 00 DIS Outpatient Adelina Anderson [id number] 07/21/2016 08:44:00 07/21/2016 23:59: 00 DIS Outpatient Jose Fisher [id number] 11/24/2017 13:08:00 Document Registration [id number] 05/11/2017 07:59:00 Document Registration [id number] 05/10/2017 10:30:00 Document Registration [id number] 04/06/2017 08:31:00 Document Registration [id number] 03/24/2017 10:48:00 Document Registration [id number] 02/16/2017 11:12:00 Document Registration [id number] 02/10/2017 10:55:00 Document Registration [id number] 02/07/2017 14:06:00 Document Registration [id number] 02/02/2017 08:31:00 Document Registration [id number] 01/31/2017 10:00:00 Document Registration [id number] 11/08/2019 07:36:00 09:20:00 DIS Outpatient CHANDU CANO MD Via [facility] CATARACT LEFT EYE [id number] 11/05/2019 09:05:00 15:49:00 DIS Outpatient CHANDU CANO MD Via [facility] PREOP CATARACT LEFT EYE [id number] 08/30/2019 09:00:00 23:59:59 CLS Preadmit CHANDU CANO MD [facility] CATARACT LEFT EYE [id number] 08/16/2019 06:41:00 09:20:00 DIS Outpatient CHANDU CANO MD [facility] CATARACT RIGHT EYE [id number] 08/14/2019 05:38:00 11:59:00 DIS Outpatient CHANDU CANO MD [facility] PREOP CATARACT RIGHT EYE [id number] 03/28/2017 09:20:00 017 23:59:59 CLS Outpatient JEANE DE GUZMAN BASS SINGER [facility] WOUNDCARE [id number] 03/21/2017 09:17:00 017 23:59:59 CLS Outpatient JEANE DE GUZMAN BASS SINGER [facility] [id number] 03/14/2017 09:18:00 017 23:59:59 CLS Outpatient JEANE DE GUZMAN BASS SINGER [facility] [id number] 03/07/2017 09:26:00 017 23:59:59 CLS Outpatient JEANE DE GUZMAN BASS SINGER [facility] [id number] 02/28/2017 09:05:00 017 23:59:59 CLS Outpatient JEANE DE GUZMAN APRN [facility] [id number] 02/21/2017 08:57:00 017 23:59:59 CLS Outpatient JEANE DE GUZMAN APRN [facility] [id number] 02/26/2014 10:12:00 014 14:30:00 DIS Inpatient GAYATRI GILL DO [facility] CSD SEVERE HYPERGLYCEMIA PA RTIAL PARALYSIS DEHYDRATION
--- NOTE | 2019-11-10 03:35 | ED Neurological Problem ---
General Stated Complaint: ALT MENTAL STATUS Source: patient, EMS Exam Limitations: no limitations History of Present Illness Date Seen by Provider: November 10, 2019 Time Seen by Provider: 03:15 Initial Comments Patient presents ER by EMS from home with chief complaint that last known well time of 1:00 in the morning he got up and started having limitations in his ability to speak. Prior to this family says he was clear and had no problems prior to 1:00 AM. No falls no trauma. He has diabetic but is not having any clammy sweats fever or chills cough shortness breath or pain. Blood sugar was 190s per EMS on arrival. They did not note any lateralizing deficits but said he had difficulty with more than one word answers and had difficulty naming items. He cannot give his date of but he could give his name. He denies a history of heart disease but he does smoke cigarettes. He is on a statin and lisinopril. Discussed case with the family member Jatin May who said he was with him and they were sitting up talking having a normal conversation and that he suddenly started having a blank stare and after that had difficulty getting words out and was getting confused. They could not find a glucometer. They did not give him any sugar or food. They said he does not routinely follow with any doctor anymore. Allergies and Home Medications Allergies Coded Allergies: No Known Drug Allergies (Unverified , 02/26/14) Home Medications Atorvastatin Calcium 20 Mg Tablet, 20 MG PO HS, (Reported) Insulin Aspart 300 Units/3 Ml Solution, 15 UNITS SQ TIDAC, (Reported) Lisinopril 20 Mg Tablet, 20 MG PO DAILY, (Reported) Metformin HCl 1,000 Mg Tablet, 1,000 MG PO BID, (Reported) Patient Home Medication List Home Medication List Reviewed: Yes Review of Systems Review of Systems Constitutional: No chills, No fever, No malaise Eyes: Denies Blindness, Denies Blurred Vision Ears, Nose, Mouth, Throat: denies ear pain, denies ear discharge Respiratory: No cough, No short of breath Cardiovascular: No chest pain, No edema, No Hx of Intervention, No palpitations, No syncope Gastrointestinal: No abdominal pain, No constipation, No diarrhea Genitourinary: No discharge, No dysuria Musculoskeletal: No back pain, No joint pain All Other Systems Reviewed Negative Unless Noted: Yes Past Ljvjpsk-Anrbtj-Fopuug Hx Patient Social History Alcohol Use: Denies Use Recreational Drug Use: No Smoking Status: Current Everyday Smoker Type Used: Cigarettes Immunizations Up To Date Tetanus Booster (TDap): Unknown Past Medical History Sleep Apnea Reproductive Disorders: No Sexually Transmitted Disease: No HIV/AIDS: No Gout Diabetes, Insulin dep Loss of Vision: Denies Hearing Impairment: Denies Adverse Reaction/Blood Tranf: No Family Medical History Coronary thrombosis 19 FATHER Diabetes mellitus G8 BROTHER FH: lung cancer 19 MOTHER (MOTHER FROM LUNG CA) Hypercholesterolemia 19 FATHER Myocardial infarction 19 FATHER ( FROM ID) Physical Exam Vital Signs Vital Signs - First Documented 11/10/19 03:17 Temp 37.0 Pulse 99 Resp 20 B/P (MAP) 146/97 (113) O2 Delivery Room Air Capillary Refill : Height, Weight, BMI Height: 5'11.00" Weight: 358lbs. 1.0oz. [id number]; BMI Method: General Appearance: mild distress, obese HEENT: PERRL/EOMI (3 mm bilateral, symmetric), normal ENT inspection, TMs normal, pharynx normal Neck: full range of motion, supple, normal inspection Respiratory: lungs clear, normal breath sounds, no respiratory distress, no accessory muscle use Cardiovascular: normal peripheral pulses, regular rate, rhythm, no edema Peripheral Pulses: 2+ Radial Pulses (R), 2+ Radial Pulses (L) Gastrointestinal: normal bowel sounds, non tender, soft Extremities: normal range of motion, non-tender, normal capillary refill Neurologic/Psychiatric: alert, normal mood/affect, other (oriented to person and place although he cannot tell the name of the place. Difficult to ascertain how well he understands the situation.) Crainal Nerves: normal hearing, PERRL, abnormal speech (severe aphasia but able to answer one-word answers) Coordination/Gait: normal finger to nose, normal gait Motor/Sensory: no sensory deficit, pronator drift (R) (upper and lower extremity) Stroke Onset of Symptoms Date of Onset of Symptoms: November 10, 2019 Time of Symptom Onset: 01:00 Onset of Symptoms: Yes Symptoms onset unknown: No NIH Stroke Scale Assessment Select: Initial Level of Consciousness: 0=Alert (0), Level of Consciousness- Questions: 1=Answers one question (1), LOC Commands: 1=Performs one task (1), Gaze: Normal (0), Visual Lindsey: 0=No visual loss (0), Facial Movement (Facial Paresis): 0=Normal symmetrical mnt (0), Motor Function-Arms Right: 1=Drift (1), Motor Function-Arms Left: 0=No drift (0), Motor Function-Legs Right: 1=Drift (1), Motor Function-Legs Left: 0=No drift (0), Limb Ataxia: 0=Absent (0), Sensory: 0=Normal:no loss (0), Best Language: 2=Severe aphasia (2), Dysarthria: 0=Normal (0), Extinction & Inattention: 0=No abnormality (0), Total: 6 Stroke Thrombolytic Exclusion Age 18 or Over: Yes Acute intenal hemorrhage: No History of CVA: No Uncontrolled Coagulation Defec: No Intracranial Hemorrhage: No Severe Hypertension: No GI or Bleed: No Subarachnoid Hemorrhage: No Intracranial Neoplasm/Aneurysm: No Oral Anticoagulants: No Surgery or Trauma: No Puncture of Non-Compressible V: No Recent CPR: No Diabetic Hemorrhagic Retinopat: No Organ Biopsy: No Recent Obstetric Delivery: No Glucose: No (188) Significant Hepatic Dysfunctio: No NIH Stoke Scale >22: No Bacterial Endocarditis: No Pericarditis: No Improving Symptoms: No Platelets: No (336) TPA Contraindication: No IV - TPa Received IV - TPa Procedure Performed?: Yes IV - TPa Date: November 10, 2019 IV - TPa Time: 04:01 Progress/Results/Core Measures Results/Orders Lab Results Laboratory Tests Test 11/10/19 03:21 11/10/19 03:32 11/10/19 03:35 Range/Units Glucometer 188 H 70-110 MG/DL Urine Color YELLOW Urine Clarity CLEAR Urine pH 7.0 5-9 Urine Specific [place] 1.020 1.016-1.022 Urine Protein TRACE H NEGATIVE Urine Glucose (UA) NEGATIVE NEGATIVE Urine Ketones TRACE H NEGATIVE Urine Nitrite NEGATIVE NEGATIVE Urine Bilirubin NEGATIVE NEGATIVE Urine Urobilinogen >=8.0 < = 1.0 MG/DL Urine Leukocyte Esterase NEGATIVE NEGATIVE Urine RBC (Auto) NEGATIVE NEGATIVE Urine RBC NONE /HPF Urine WBC NONE /HPF Urine Squamous Epithelial Cells 0-2 /HPF Urine Crystals NONE /LPF Urine Bacteria NEGATIVE /HPF Urine Casts NONE /LPF Urine Mucus LARGE H /LPF Urine Culture Indicated NO White Blood Count 10.3 4.3-11.0 10^3/uL Red Blood Count 4.49 4.35-5.85 10^6/uL Hemoglobin 12.8 L 13.3-17.7 G/DL Hematocrit 39 L 40-54 % Mean Corpuscular Volume 86 80-99 FL Mean Corpuscular Hemoglobin 29 25-34 PG Mean Corpuscular Hemoglobin Concent 33 32-36 G/DL Red Cell Distribution Width 14.2 10.0-14.5 % Platelet Count 336 130-400 10^3/uL Mean Platelet Volume 10.1 7.4-10.4 FL Neutrophils (%) (Auto) 68 42-75 % Lymphocytes (%) (Auto) 22 12-44 % Monocytes (%) (Auto) 7 0-12 % Eosinophils (%) (Auto) 2 0-10 % Basophils (%) (Auto) 1 0-10 % Neutrophils # (Auto) 7.0 1.8-7.8 X 10^3 Lymphocytes # (Auto) 2.3 1.0-4.0 X 10^3 Monocytes # (Auto) 0.7 0.0-1.0 X 10^3 Eosinophils # (Auto) 0.2 0.0-0.3 10^3/uL Basophils # (Auto) 0.1 0.0-0.1 10^3/uL Prothrombin Time 13.5 12.2-14.7 SEC INR Comment 1.0 0.8-1.4 Activated Partial Thromboplast Time 25 24-35 SEC D-Dimer 0.78 H 0.00-0.49 UG/ML Sodium Level 143 135-145 MMOL/L Potassium Level 3.5 L 3.6-5.0 MMOL/L Chloride Level 113 H 98-107 MMOL/L Carbon Dioxide Level 19 L 21-32 MMOL/L Anion Gap 11 5-14 MMOL/L Blood Urea Nitrogen 26 H 7-18 MG/DL Creatinine 1.01 0.60-1.30 MG/DL Estimat Glomerular Filtration Rate > 60 BUN/Creatinine Ratio 26 Glucose Level 196 H 70-105 MG/DL Calcium Level 9.2 8.5-10.1 MG/DL Corrected Calcium 9.4 8.5-10.1 MG/DL Total Bilirubin 0.3 0.1-1.0 MG/DL Aspartate Amino Transf (AST/SGOT) 9 5-34 U/L Alanine Aminotransferase (ALT/SGPT) 18 0-55 U/L Alkaline Phosphatase 70 40-136 U/L Troponin I 0.070 H <0.028 NG/ML Total Protein 6.8 6.4-8.2 GM/DL Albumin 3.8 3.2-4.5 GM/DL My Orders Orders - DRAGAN WOMACK Ct Head Wo-R/O Stroke (11/10/19:26) Cbc With Automated Diff (11/10/19:) Protime With Inr (11/10/19:) Partial Thromboplastin Time (11/10/19:) Comprehensive Metabolic Panel (11/10/19:) Fibrin Degradation Products (11/10/19:) Troponin I (11/10/19:) Ua Culture If Indicated (11/10/19:) Chest 1 View, Ap/Pa Only (11/10/19:) Catheter(Urinary) Insert & Ass 03,15 (11/10/19:) Ekg Tracing (11/10/19:26) Nothing By Mouth (11/10/19 Breakfast) Accucheck Stat ONCE (11/10/19:) Ed Iv/Invasive Line Start (11/10/19:) Ed Iv/Invasive Line Start (11/10/19:26) Vital Signs Stroke Patient Q15M (11/10/19:26) O2 (11/10/19:26) Intake & Output 06,14,22 (11/10/19:26) Monitor-Rhythm Ecg Trace Only (11/10/19:26) Dysphagia Screening Tool (11/10/19:26) Post Thrombolytic Adminstratio (11/10/19:26) Lipid Panel (11/11/19 06:00) Ct Angio Head/Neck (11/10/19:26) Code/Resuscitation (11/10/19 03:58) Vital Signs Stroke Patient Q15M (11/10/19 03:58) Dysphagia Screening Tool (11/10/19 03:58) Alteplase (Activase) (Activase Injection (11/10/19 03:58) Ns Iv 1000 Ml (Sodium Chloride 0.9%) (11/10/19 03:58) Alteplase (Activase) (Activase Injection (11/10/19 03:51) Iohexol Injection (Omnipaque 350 Mg/Ml 1 (11/10/19 05:30) Ns (Ivpb) (Sodium Chloride 0.9% Ivpb Bag (11/10/19 05:30) Medications Given in ED Current Medications Medications Dose Ordered Sig/Hailey Route Start Time Stop Time Status Last Admin Dose Admin Alteplase, Recombinant 90 mg 0358 ONCE IV 11/10/19 03:58 11/10/19 04:01 DC 11/10/19 04:20 90 MG Iohexol 75 ml ONCE ONCE IV 11/10/19 05:30 11/10/19 05:31 UNV 11/10/19 05:18 75 ML Sodium Chloride 80 ml ONCE ONCE IV 11/10/19 05:30 11/10/19 05:31 UNV 11/10/19 05:18 80 ML Vital Signs/I&O 11/10/19 03:17 Temp 37.0 Pulse 99 Resp 20 B/P (MAP) 146/97 (113) O2 Delivery Room Air Initial ECG Impression Date: November 10, 2019 Initial ECG Impression Time: 03:44 Initial ECG Rate: 96 Initial ECG Rhythm: Normal Sinus Initial ECG Intervals: QT (521) Initial ECG Impression: Normal, Nonspecific Changes Comment Normal sinus rhythm with right bundle branch block and left anterior fascicular block. No clinically relevant ST changes. Diagnostic Imaging Diagonstic Imaging: Xray Plain Films/CT/US/NM/MRI: chest (1v) Comments NAME: MEAGAN GUEVARA [facility] REC#: [id number] PT STATUS: REG ER : 1965 PHYSICIAN: DRAGAN WOMACK MD ADMIT DATE: 11/10/19/ER Draft Date of Exam:11/10/19 CHEST 1 VIEW, AP/PA ONLY INDICATION: Altered mental status. TECHNIQUE: Single view chest 5:09 AM. CORRELATION STUDY: 02/26/2014 FINDINGS: Heart size is enlarged. Vasculature is slightly increased from prior study. Mildly prominent interstitial markings. No consolidating infiltrate. IMPRESSION: 1. Cardiac enlargement with vasculature slightly increased suggesting perhaps early fluid overload or failure. Dictated on workstation # [id number] Dict: 11/10/19 0549 Trans: 11/10/19 0553 OLIVIA [id number] Interpreted by: SAMMY HUGHES DO Electronically signed by: Reviewed: Reviewed by Me Diagonstic Imaging: CT (without IV contrast) Plain Films/CT/US/NM/MRI: head Comments No acute intracranial process compared to previous exam 2013 stable. Reviewed: Reviewed [place] Study, Reviewed by Me Diagonstic Imaging: CT (angiogram) Plain Films/CT/US/NM/MRI: head (and neck) Comments No focal intracranial vascular abnormality. If acute intracranial infarction remains a concern, MRI may be helpful. Small bilateral pleural effusions. Mild pulmonary edema. Bilateral subclavian, carotid, vertebral arteries are patent. Reviewed: Reviewed [place] Study, Reviewed by Me Consults : Consults Notes [facility] Triage 0340: Discussed the case with Dr. Hall and she agrees with TPA, Angiogram and admission. Departure Communication (Admissions) Time/Spoke to Admitting Phy: 06:00 Discussed the case with Dr. Gonzales, internal medicine he agrees to admit the patient to the ICU for continued stroke care, MRI etc. Impression Primary Impression: CVA (cerebral vascular accident) Qualified Codes: I63.50 - Cerebral infarction due to unspecified occlusion or stenosis of unspecified cerebral artery Additional Impression: Acute hyperglycemia Disposition: ADMITTED INPATIENT Condition: Stable Admissions Decision to Admit Reason: Admit from ER (General) Decision to Admit/Date: November 10, 2019 Time/Decision to Admit Time: 04:55 Departure-Patient Inst. Referrals: UNIQUE BARRIENTOS MD (PCP) Primary Care Physician THEO,LOCAL PHYSICIAN (Family) Primary Care Physician DRAGAN WOMACK November 10, 2019 03:35
[2019-11-10 03:51] LABS: BILIRUBIN,URINE NEGATIVE (NEGATIVE); CLARITY,URINE CLEAR; COLOR,URINE YELLOW; GLUCOSE, URINE (UA) NEGATIVE (NEGATIVE); KETONES,URINE TRACE (NEGATIVE); LEUKOCYTE ESTERASE ,URINE NEGATIVE (NEGATIVE); NITRITE,URINE NEGATIVE (NEGATIVE); PROTEIN,URINE TRACE (NEGATIVE)
[2019-11-10] MEDS ORDERED: ALTEPLASE 100 MG/VIAL (ACTIVASE) ONE (03:51)
[2019-11-10 03:52] LABS: BASOPHILS # (AUTO) 0.1 10^3/uL (0.0-0.1); BASOPHILS % (AUTO) 1 % (0-10); EOSINOPHILS # (AUTO) 0.2 10^3/uL (0.0-0.3); EOSINOPHILS % (AUTO) 2 % (0-10); HEMATOCRIT 39 % (40-54); HEMOGLOBIN 12.8 G/DL (13.3-17.7); LYMPHOCYTES # (AUTO) 2.3 X 10^3 (1.0-4.0); LYMPHOCYTES % (AUTO) 22 % (12-44); MEAN CORPUSCULAR HEMOGLOBIN 29 PG (25-34); MEAN CORPUSCULAR HGB CONC 33 G/DL (32-36); MEAN CORPUSCULAR VOLUME 86 FL (80-99); MEAN PLATELET VOLUME 10.1 FL (7.4-10.4); MONOCYTES # (AUTO) 0.7 X 10^3 (0.0-1.0); MONOCYTES % (AUTO) 7 % (0-12); NEUTROPHILS % (AUTO) 68 % (42-75); PLATELET COUNT 336 10^3/uL (130-400); RED CELL DISTRIBUTION WIDTH 14.2 % (10.0-14.5); WHITE BLOOD COUNT 10.3 10^3/uL (4.3-11.0)
[2019-11-10] MEDS ORDERED: ALTEPLASE 100 MG/VIAL (ACTIVASE) IV ONE (03:58)
[2019-11-10 04:04] LABS: ALBUMIN 3.8 GM/DL (3.2-4.5); CHLORIDE 113 MMOL/L (98-107); POTASSIUM 3.5 MMOL/L (3.6-5.0); SODIUM 143 MMOL/L (135-145)
[2019-11-10 04:05] LABS: CALCIUM 9.2 MG/DL (8.5-10.1)
[2019-11-10 04:06] LABS: GLUCOSE 196 MG/DL (70-105); TOTAL PROTEIN 6.8 GM/DL (6.4-8.2)
[2019-11-10 04:07] LABS: CARBON DIOXIDE 19 MMOL/L (21-32); FIBRIN DEGRADATION PRODUCTS 0.78 UG/ML (0.00-0.49); PROTHROMBIN TIME PATIENT 13.5 SEC (12.2-14.7)
[2019-11-10 04:08] LABS: BILIRUBIN,TOTAL 0.3 MG/DL (0.1-1.0)
[2019-11-10 04:09] LABS: BACTERIA,URINE NEGATIVE /HPF; SQUAMOUS EPITHELIAL CELL,UR 0-2 /HPF
[2019-11-10 04:10] LABS: ALKALINE PHOSPHATASE 70 U/L (40-136); CREATININE SERUM 1.01 MG/DL (0.60-1.30); GFR ESTIMATED > 60
[2019-11-10 04:11] LABS: BUN/CREATININE RATIO 26
[2019-11-10 04:13] LABS: ALANINE AMINOTRANSFERASE 18 U/L (0-55)
[2019-11-10] MEDS: NS IV 1000 ML 1,000 ML IV SCH ×3 (04:18→17:32)
[2019-11-10] MEDS ORDERED: IOHEXOL 350 MG/ML 100 ML (OMNIPAQUE 350) VIAL IV ONE (05:30)
[2019-11-10] MEDS ORDERED: NS 100 ML (IVPB) BAG IV ONE (05:30)
--- NOTE | 2019-11-10 05:53 | Diagnostic Imaging Report ---
INDICATION: Altered mental status. TECHNIQUE: Single view chest 5:09 AM. CORRELATION STUDY: 02/26/2014 FINDINGS: Heart size is enlarged. Vasculature is slightly increased from prior study. Mildly prominent interstitial markings. No consolidating infiltrate. IMPRESSION: 1. Cardiac enlargement with vasculature slightly increased suggesting perhaps early fluid overload or failure. Dictated by: Dictated on workstation # [id number]
--- OUTSIDE RECORDS SUMMARY | 2019-11-10 06:36 | XMS REPORT | Continuity of Care Document ---
Author Organization Unknown Address Unknown Phone Unavailable Allergies Active Description Code Type Severity Reaction Onset Reported/Identified Relationship to Patient Clinical Status Yes NO KNOWN DRUG ALLERGIES UNKNOWN NO KNOWN DRUG ALLERG Yes NO KNOWN DRUG ALLERGIES UNKNOWN UNKNOWN Yes No Known Drug Allergies [id number] Drug Allergy Unknown N/A 02/26/2014 Medications There [...] Ot 274.9 GOUT NOS 03/03/2014 JAIRO COREY GAYATRI Ot 276.1 HYPOSMOLALITY 03/03/2014 JAIRO COREY GAYATRI [...] Ot 457.1 OTHER LYMPHEDEMA 03/03/2014 JAIRO COREY GAYATRI Ot 459.81 VENOUS INSUFFICIENCY NOS 03/03/2014 JAIRO [...] WITH MEDICATION REGIMEN 03/01/2017 JEANE DE GUZMAN LATCHER Ot E11.621 TYPE 2 DIABETES MELLITUS WITH FOOT ULCER 03/01/2017 JEANE DE GUZMAN LATCHER Ot L03.115 CELLULITIS OF RIGHT LOWER LIMB 03/01/2017 JEANE DE GUZMAN LATCHER Ot L97.512 NON-PRS CHRONIC ULCER OTH PRT RIGHT FOOT 03/13/2017 JEANE DE GUZMAN APRN Ot E11.621 TYPE 2 DIABETES MELLITUS WITH FOOT ULCER 03/13/2017 JEANE DE GUZMAN LATCHER Ot L03.115 CELLULITIS OF RIGHT LOWER LIMB 03/13/2017 JEANE DE GUZMAN LATCHER Ot L97.512 NON-PRS CHRONIC ULCER OTH PRT RIGHT FOOT 03/14/2017 JEANE DE GUZMAN LATCHER Ot E11.621 TYPE 2 DIABETES MELLITUS WITH FOOT ULCER 03/14/2017 JEANE DE GUZMAN LATCHER Ot L03.115 CELLULITIS OF RIGHT LOWER LIMB 03/14/2017 JEANE DE GUZAMN APRN Ot L97.512 NON-PRS CHRONIC ULCER OTH PRT RIGHT FOOT 2017 JEANE DE GUZMAN LATCHER Ot E11.621 TYPE 2 DIABETES MELLITUS WITH FOOT ULCER 2017 JEANE DE GUZMAN LATCHER Ot L03.115 CELLULITIS OF RIGHT LOWER LIMB [...] MELLITUS WITH HYPERGLYCEMIA 03/28/2017 JEANE DE GUZMAN LATCHER Ot E11.621 TYPE 2 DIABETES MELLITUS WITH FOOT ULCER 03/28/2017 JEANE DE GUZMAN LATCHER Ot L03.115 CELLULITIS OF RIGHT LOWER LIMB 03/28/2017 JEANE DE GUZMAN LATCHER Ot L97.512 NON-PRS CHRONIC ULCER OTH PRT [...] OBE SITY, UNSPECIFIED 11/24/2017 W 305.1 TOBA SOLDERER ASSEMBLY REPAIR USE DISORDER 11/24/2017 W 401.9 UNSP ECIFIED [...] HAZARDS TO HEALTH 11/24/2017 W Z72.0 TOBA SOLDERER ASSEMBLY REPAIR USE 11/24/2017 W Z91.14 PAT IENT'S OTHER [...] RIGHT LOWER LIMB 08/14/2019 GEGE, JEANE R LATCHER Ot L97.512 NON-PRS CHRONIC ULCER OTH PRT RIGHT FOOT 08/14/2019 GEGE, JEANE R LATCHER Ot E11.621 TYPE 2 DIABETES MELLITUS WITH FOOT ULCER 08/14/2019 GEGE, JEANE R LATCHER Ot L03.115 CELLULITIS OF RIGHT LOWER LIMB 08/14/2019 GEGE, JEANE R LATCHER Ot L97.512 NON-PRS CHRONIC ULCER OTH PRT RIGHT FOOT 08/14/2019 GEGE, JEANE R LATCHER Ot E11.621 TYPE 2 DIABETES MELLITUS WITH FOOT ULCER 08/14/2019 GEGE, JEANE R LATCHER Ot L97.512 NON-PRS CHRONIC ULCER OTH PRT RIGHT FOOT 08/14/2019 GEGE, JEANE R LATCHER Ot E11.621 TYPE 2 DIABETES MELLITUS WITH FOOT ULCER 08/14/2019 GEGE, JEANE R LATCHER Ot L03.115 CELLULITIS OF RIGHT LOWER LIMB 08/14/2019 GEGE JEANE R LATCHER Ot L97.512 NON-PRS CHRONIC ULCER OTH PRT [...] 08/16/2019 CHANDU CANO MD Ot 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 08/20/2019 CHANDU CANO [...] 08/20/2019 CHANDU CANO MD Ot 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 09/09/2019 JEANE DE GUZMAN R LATCHER Ot E11.621 TYPE 2 DIABETES MELLITUS WITH FOOT ULCER 09/09/2019 JEANE DE GUZMAN R LATCHER Ot L03.115 CELLULITIS OF RIGHT LOWER LIMB 09/09/2019 JEANE DE GUZMAN R LATCHER Ot L97.512 NON-PRS CHRONIC ULCER OTH PRT RIGHT FOOT 09/09/2019 GEGE JEANE R LATCHER Ot E11.621 TYPE 2 DIABETES MELLITUS WITH FOOT ULCER 09/09/2019 GEGE JEANE R LATCHER Ot L03.115 CELLULITIS OF RIGHT LOWER LIMB 09/09/2019 GEGE JEANE R LATCHER Ot L97.512 NON-PRS CHRONIC ULCER OTH PRT RIGHT FOOT 09/09/2019 JEANE DE GUZMAN R LATCHER Ot E11.621 TYPE 2 DIABETES MELLITUS WITH FOOT ULCER 09/09/2019 GEGE JEANE R LATCHER Ot L03.115 CELLULITIS OF RIGHT LOWER LIMB 09/09/2019 GEGE JEANE R LATCHER Ot L97.512 NON-PRS CHRONIC ULCER OTH PRT RIGHT FOOT 09/09/2019 JEANE DE GUZMAN R LATCHER Ot E11.621 TYPE 2 DIABETES MELLITUS WITH FOOT ULCER 09/09/2019 GEGE JEANE R LATCHER Ot L03.115 CELLULITIS OF RIGHT LOWER LIMB 09/09/2019 GEGE JEANE R LATCHER Ot L97.512 NON-PRS CHRONIC ULCER OTH PRT RIGHT FOOT 09/09/2019 JEANE DE GUZMAN R LATCHER Ot E11.621 TYPE 2 DIABETES MELLITUS WITH FOOT ULCER 09/09/2019 GEGE JEANE R LATCHER Ot L97.512 NON-PRS CHRONIC ULCER OTH PRT RIGHT FOOT 09/09/2019 GEGE JEANE R LATCHER Ot E11.621 TYPE 2 DIABETES MELLITUS WITH FOOT ULCER 09/09/2019 GEGE JEANE R LATCHER Ot L03.115 CELLULITIS OF RIGHT LOWER LIMB 09/09/2019 GEGE JEANE R LATCHER Ot L97.512 NON-PRS CHRONIC ULCER OTH PRT [...] 33.1 g/dL 32.0-36.0 MCV 84.2 fL 80.0-97.0 [place]% 6.6 % 0.0-12.0 MPV 11.9 fL 7.4-10.0 [place]% 71.7 % 37.0-80.0 Plt 208 K/uL 150-400 RBC 6.21 M/uL 4.20-5.40 RDW 15.3 % 11.6-14.8 WBC 10.59 K/uL 5.00-10.00 [place] 7.60 K/uL 2.00-6.90 [place] 0.7 K/uL 0.0-0.9 Baso 0.0 K/uL 0.0-0.2 [...] 7-25 CREATININE 0.68 mg/dL 0.70-1.33 eGFR NON-AFR. SAMOAN 108 mL/min/1.73m2 > OR = 60 eGFR [...] Status Pt. Type Provider Facility Loc./Unit Complaint [id number] 2019 14:00:00 2019 23:59: 59 CLS [facility] [id number] 2019 14:00:00 Document Registration [id number] 05/11/2017 09:06:00 05/11/2017 23:59: 00 DIS Outpatient Rhiannon Pro [id number] 02/02/2017 11:52:00 02/02/2017 23:59: 00 DIS Outpatient Adelina Anderson [id number] 07/21/2016 08:44:00 07/21/2016 23:59: 00 DIS Outpatient Jose Fisher [id number] 11/24/2017 13:08:00 Document Registration [id number] 05/11/2017 07:59:00 Document Registration [id number] 05/10/2017 10:30:00 Document Registration [id number] 04/06/2017 08:31:00 Document Registration [id number] 03/24/2017 10:48:00 Document Registration [id number] 02/16/2017 11:12:00 Document Registration [id number] 02/10/2017 10:55:00 Document Registration [id number] 02/07/2017 14:06:00 Document Registration [id number] 02/02/2017 08:31:00 Document Registration [id number] 01/31/2017 10:00:00 Document Registration [id number] 11/08/2019 07:36:00 09:20:00 DIS Outpatient CHANDU CANO MD [facility] CATARACT LEFT EYE [id number] 11/05/2019 09:05:00 15:49:00 DIS Outpatient CHANDU CANO MD [facility] CATARACT LEFT EYE [id number] 08/30/2019 09:00:00 23:59:59 CLS Preadmit CHANDU CANO MD [facility] CATARACT LEFT EYE [id number] 08/16/2019 06:41:00 09:20:00 DIS Outpatient CHANDU CANO MD [facility] CATARACT RIGHT EYE [id number] 08/14/2019 05:38:00 11:59:00 DIS Outpatient CHANDU CANO MD [facility] CATARACT RIGHT EYE [id number] 03/28/2017 09:20:00 017 23:59:59 CLS Outpatient JEANE DE GUZMAN LATCHER [facility] [id number] 03/21/2017 09:17:00 017 23:59:59 CLS Outpatient JEANE DE GUZMAN LATCHER [facility] [id number] 03/14/2017 09:18:00 017 23:59:59 CLS Outpatient JEANE DE GUZMAN LATCHER [facility] [id number] 03/07/2017 09:26:00 017 23:59:59 CLS Outpatient JEANE DE GUZMAN LATCHER [facility] [id number] 02/28/2017 09:05:00 017 23:59:59 CLS Outpatient JEANE DE GUZMAN APRN [facility] [id number] 02/21/2017 08:57:00 017 23:59:59 CLS Outpatient JEANE DE GUZMAN APRN [facility] [id number] 02/26/2014 10:12:00 014 14:30:00 DIS Inpatient GAYATRI GILL DO [facility] SEVERE HYPERGLYCEMIA PA RTIAL PARALYSIS DEHYDRATION
--- NOTE | 2019-11-10 07:08 | Diagnostic Imaging Report ---
PROCEDURE: CT angiography of the head and CT angiography of the neck with and without contrast. TECHNIQUE: Contiguous noncontrast images were obtained from the skull base through the vertex. After intravenous contrast administration, helical CT angiography of the neck was performed. Source data was reformatted into 3D MIP projections. Delayed post contrast acquisition was also obtained. Auto Exposure Controls were utilized during the CT exam to meet ALARA standards for radiation dose reduction. INDICATION: Altered mental status, stroke alert. CORRELATION STUDY: None FINDINGS: The bilateral internal carotid arteries with minimal atherosclerotic change but are patent. The anterior and middle cerebral arteries are patent. No large vessel occlusion or significant stenosis. No vascular malformation. The bilateral vertebral arteries appear unremarkable as visualized. Basilar artery unremarkable. Posterior cerebral arteries are patent. Postcontrast imaging of the head demonstrates no abnormal areas of intracranial enhancement. The CTA Head and Neck demonstrates normal three-vessel branching pattern of the aortic arch. The bilateral common carotid arteries are patent. There is mild plaque-like formation at the carotid bulbs extending into the internal and external carotid arteries. However, no significant stenosis. No occlusion. The internal carotid arteries are patent to the skull base. External carotid arteries are patent. The bilateral vertebral arteries relatively codominant. Soft tissue neck are unremarkable. There is note made of a small to moderate bilateral pleural effusions layering dependently, right greater than left. There is presence of prominent mediastinal lymph nodes. Also prominent axillary and left-sided retropectoral lymph nodes. Likely mild pulmonary edema. Moderate degenerative disc disease is noted particularly at the lower cervical spine. IMPRESSION: 1. CTA of the [place] demonstrates patency. No large vessel occlusion or significant vascular malformation. 2. CT of the neck with mild atherosclerotic change about the carotid bulbs but without findings to suggest significant stenosis. 3. Mild pulmonary edema with presence of small to moderate bilateral pleural effusions. 4. There is noted partial visualization of a prominent superior mediastinal and left axillary and retropectoral lymph nodes. A preliminary report was provided by [employer]. Dictated by: Dictated on workstation # [id number]
--- NOTE | 2019-11-10 07:58 | Diagnostic Imaging Report ---
EXAMINATION: CT head without contrast. TECHNIQUE: Multiple contiguous axial images were obtained through the brain without the use of intravenous contrast. All CT scans use one or more of the following dose optimizing techniques: automated exposure control, MA and/or KvP adjustment based on a patient size and exam type, or iterative reconstruction. HISTORY: Evaluate for stroke, altered mental status COMPARISON: None available. FINDINGS: The garza-white matter differentiation is normal. No mass effect or midline shift. The ventricles are normal in size and configuration. Basilar cisterns are patent. There are no intra- or extra-axial fluid collections. There is no intracranial hemorrhage. The orbits are normal. Paranasal sinuses are normal. Mastoid air cells are clear. No soft tissue abnormality is seen. No osseus lesions or fractures are seen. IMPRESSION: 1. No acute intracranial abnormality. Dictated by: Dictated on workstation # [id number]
[2019-11-10] MEDS ORDERED: fentaNYL INJECTION 100 MCG/2 ML AMP IV PRN (08:15)
[2019-11-10] MEDS ORDERED: ONDANSETRON 4 MG/2 ML (SDV) Z0FRAN IV PRN (08:15)
[2019-11-10] MEDS ORDERED: LORazepam INJ 2 MG/ML (ATIVAN) VIAL IV PRN (08:15)
--- NOTE | 2019-11-10 11:04 | Physical Therapy Progress Note ---
Therapy Progress Note PT orders received. Pt received TPA, nursing requested to not see pt this date. This therapist did speak with patient, he is moving all extremities and able to position in bed. Noted word finding difficulties. Will plan PT eval on 11/11/2019 BENNY THRASHER PT November 10, 2019 11:04
[2019-11-10] MEDS ORDERED: PLTR10OP OP (11:32)
[2019-11-10] MEDS ORDERED: PRED5DRO17 OP (11:32)
[2019-11-10] MEDS: inSUlin ASPART (NovoLOG) 1 UNIT/0.01 ML (CHARGE PER UNIT) SC SCH ×3 (11:41→20:27)
--- NOTE | 2019-11-10 11:51 | History & Physical-Hospitalist ---
History of Present Illness HPI/Chief Complaint Delon Lacy is a 54-year-old male with past medical history of hypertension, hyperlipidemia, type II diabetes mellitus, who presented with right-sided weakness and slurred speech. He is a poor historian due to word finding difficulties on my examination. He was reportedly well prior to 1 a.m. when he says he had an acute change in his status. He is unable to tell me what he is feeling at that time. Upon his arrival to the emergency room, he underwent a CT scan which did not show any acute stroke. With his symptoms, he was given TPA. He has no complaints or concerns this morning. He denies any fevers or chills. He denies any chest pain or shortness of breath. He denies any cough. He denies any abdominal pain, nausea, or vomiting. He is not feeling weak. He is unable to tell me the name of his primary care provider. Date Seen 11/10/19 Time Seen by a Provider: 09:00 Attending Physician Meera Borjas MD PCP Jose Fisher MD Referring Physician Date of Admission November 10, 2019 at 05:00 Home Medications & Allergies Home Medications Reviewed patient Home Medication Reconciliation performed by pharmacy medication reconciliations asbestos abatement technician and/or nursing. Patients Allergies have been reviewed. Allergies Allergies Coded Allergies No Known Drug Allergies (Unverified02/26/14) Past Tdgkibn-Ebnpmb-Tmxeck Hx Past Med/Social Hx: Reviewed Nursing Past Med/Soc Hx Patient Social History Alcohol Use: Denies Use Recreational Drug Use: No Smoking Status: Current Everyday Smoker Type Used: Cigarettes Recent Foreign Travel: No Contact w/other who traveled: No Recent Hopitalizations: No Recent Infectious Disease Expo: No Immunizations Up To Date Tetanus Booster (TDap): Unknown Seasonal Allergies Seasonal Allergies: No Past Medical History Cardiac: High Cholesterol, Hypertension Reproductive: No Sexually Transmitted Disease: No HIV/AIDS: No Musculoskeletal: Gout Endocrine: Diabetes, Insulin dep Loss of Vision: Denies Hearing Impairment: Denies History of Blood Disorders: No Adverse Reaction to Blood Garcia: No Family History Coronary thrombosis 19 FATHER Diabetes mellitus G8 BROTHER FH: lung cancer 19 MOTHER (MOTHER FROM LUNG [place]) Hypercholesterolemia 19 FATHER Myocardial infarction 19 FATHER ( FROM [place]) Review of Systems Constitutional: weakness EENTM: no symptoms reported Respiratory: no symptoms reported Cardiovascular: no symptoms reported Gastrointestinal: no symptoms reported Genitourinary: no symptoms reported Musculoskeletal: no symptoms reported Skin: no symptoms reported Psychiatric/Neurological: Weakness, Other (Word finding difficulty, slurred speech) Physical Exam Physical Exam Vital Signs Vital Signs - First Documented 11/10/19 11/10/19 03:17 07:23 Temp 37.0 Pulse 99 Resp 20 B/P (MAP) 146/97 (113) Pulse Ox 97 O2 Delivery Room Air Capillary Refill : Less Than 3 Seconds Height, Weight, BMI Height: 5'11.00" Weight: 358lbs. 1.0oz. [id number]; BMI Method: General Appearance: No Apparent Distress, WD/WN, Other (Cooperative) HEENT: Pharynx Normal, Moist Mucous Membranes Neck: Normal Inspection, Supple Respiratory: Lungs Clear, Normal Breath Sounds, No Respiratory Distress Cardiovascular: Regular Rate, Rhythm, No Edema, No Murmur Gastrointestinal: Normal Bowel Sounds, Non Tender, Soft Extremity: Normal Inspection, Non Tender, No Pedal Edema Neurologic/Psychiatric: Alert, Oriented x3, No Motor/Sensory Deficits, Normal Mood/Affect; No Facial Droop, No Motor Weakness; Other (Word finding difficulties) Skin: Normal Color, Warm/Dry Results Results/Procedures Labs Laboratory Tests 11/10/19 03:35 Patient resulted labs reviewed. Imaging: Reviewed Imaging Report Assessment/Plan Admission Diagnosis Acute ischemic stroke Admission Status: Inpatient Order (span 2 midnights) Reason for Inpatient Admission: Acute ischemic stroke requiring further treatment and evaluation Assessment and Plan Acute ischemic stroke Hypertension Hyperlipidemia Type II diabetes mellitus Tobacco abuse Hypokalemia CT head without evidence of stroke on arrival CTA with without occlusion or stenosis evident, mediastinal and axillary lymphadenopathy noted Due to high likelihood of acute stroke, TPA given Post thrombolytic protocol in place Neurochecks every 4 hours Obtain an MRI tomorrow Echocardiogram with bubble study ordered Troponin mildly elevated at 0.07 on arrival, likely due to acute stroke, repeat tomorrow morning Continue home lisinopril and Lipitor Begin Levemir 10 units nightly Sliding scale insulin Nicotine patch ordered Continue to monitor and replace electrolytes as needed PT/OT consulted Speech therapy consulted IRF evaluation requested Recent cataract surgery Continue eyedrops Lymphadenopathy Incidental finding on CTA, will need follow-up and likely further imaging DVT prophylaxis: Contraindicated with recent TPA administration, likely begin pharmacologic prophylaxis tomorrow Diagnosis/Problems Diagnosis/Problems (1) Acute ischemic stroke Status: Acute (2) HTN (hypertension) Status: Chronic Qualifiers: Hypertension type: essential hypertension Qualified Codes: I10 - Essential (primary) hypertension (3) HLD (hyperlipidemia) Status: Chronic (4) T2DM (type 2 diabetes mellitus) Status: Chronic Qualifiers: Diabetes mellitus intermediate frame tender insulin use: with intermediate frame tender use (5) Cataract Status: Chronic (6) Elevated troponin Status: Acute (7) Lymphadenopathy Status: Acute Clinical Quality Measures DVT/VTE Risk/Contraindication: Risk Factor Score Per Nursin RFS Level Per Nursing on Admit: 3=High Stroke: Date of last known well: November 10, 2019 Time of last known well: 01:00 Symptoms onset unknown: No MEERA BORJAS MD November 10, 2019 11:51
[2019-11-10] MEDS: prednisoLONE 1% OPTH (PRED FORTE) 5 ML BTL OP SCH ×3 (13:04→21:09)
[2019-11-10] MEDS: POLY/TRIMETH (POLYTRIM) OPHTH 10 ML BTL OP SCH ×3 (13:04→21:09)
[2019-11-11] VITALS (13 sets, daily range): BP systolic 118–153; BP diastolic 64–105
[2019-11-11] MEDS: NS IV 1000 ML 1,000 ML IV SCH ×3 (02:30→05:42)
[2019-11-11 03:39] LABS: BASOPHILS % (AUTO) 0 % (0-10); EOSINOPHILS # (AUTO) 0.2 10^3/uL (0.0-0.3); EOSINOPHILS % (AUTO) 1 % (0-10); HEMATOCRIT 39 % (40-54); HEMOGLOBIN 12.7 G/DL (13.3-17.7); LYMPHOCYTES # (AUTO) 1.9 X 10^3 (1.0-4.0); LYMPHOCYTES % (AUTO) 15 % (12-44); MEAN CORPUSCULAR HEMOGLOBIN 28 PG (25-34); MEAN CORPUSCULAR HGB CONC 33 G/DL (32-36); MEAN CORPUSCULAR VOLUME 86 FL (80-99); MEAN PLATELET VOLUME 10.5 FL (7.4-10.4); MONOCYTES % (AUTO) 8 % (0-12); NEUTROPHILS # (AUTO) 9.7 X 10^3 (1.8-7.8); NEUTROPHILS % (AUTO) 76 % (42-75); PLATELET COUNT 307 10^3/uL (130-400); RED CELL DISTRIBUTION WIDTH 14.3 % (10.0-14.5); WHITE BLOOD COUNT 12.9 10^3/uL (4.3-11.0)
[2019-11-11 03:48] LABS: CHLORIDE 109 MMOL/L (98-107); POTASSIUM 3.5 MMOL/L (3.6-5.0); SODIUM 139 MMOL/L (135-145)
[2019-11-11 03:50] LABS: CALCIUM 8.6 MG/DL (8.5-10.1)
[2019-11-11 03:51] LABS: GLUCOSE 131 MG/DL (70-105); TRIGLYCERIDES 101 MG/DL (<150); VLDL CHOLESTEROL 20 MG/DL (5-40)
[2019-11-11 03:52] LABS: CARBON DIOXIDE 19 MMOL/L (21-32)
[2019-11-11 03:54] LABS: GFR ESTIMATED > 60; PHOSPHORUS 3.3 MG/DL (2.3-4.7)
[2019-11-11 03:56] LABS: BUN/CREATININE RATIO 21; CHOLESTEROL 110 MG/DL (< 200)
[2019-11-11 03:57] LABS: HDL CHOLESTEROL 32 MG/DL (40-60); MAGNESIUM 1.8 MG/DL (1.6-2.4)
[2019-11-11] MEDS: inSUlin ASPART (NovoLOG) 1 UNIT/0.01 ML (CHARGE PER UNIT) SC SCH ×4 (04:51→21:13)
--- NOTE | 2019-11-11 08:13 | Diagnostic Imaging Report ---
Portable erect AP chest at 336 hours. INDICATION: CVA. FINDINGS: The cardiomegaly and mild pulmonary congestion seen on the prior exam of 11/10/2019 are again evident. If anything, the central pulmonary vascularity is slightly more prominent than on the prior study. There also appears to be some atelectasis/infiltrate in the right infrahilar region. There is no significant pleural effusion identified. The mediastinum is not widened. The osseous structures are intact. IMPRESSION: The appearance of the chest is perhaps slightly worse when compared to the prior exam as there does seem to be somewhat greater pulmonary congestion. A follow-up study would be recommended for continued evaluation. Dictated by: Dictated on workstation # [id number]
--- NOTE | 2019-11-11 09:17 | Progress Note - Hospitalist ---
Subjective HPI/CC On Admission Date Seen by Provider: Nov 11, 2019 Time Seen by Provider: 09:12 Delon Lacy is a 54-year-old male with past medical history of hypertension, hyperlipidemia, type II diabetes mellitus, who presented with right-sided weakness and slurred speech. He is a poor historian due to word finding difficulties on my examination. He was reportedly well prior to 1 a.m. when he says he had an acute change in his status. He is unable to tell me what he is feeling at that time. Upon his arrival to the emergency room, he underwent a CT scan which did not show any acute stroke. With his symptoms, he was given TPA. He has no complaints or concerns this morning. He denies any fevers or chills. He denies any chest pain or shortness of breath. He denies any cough. He denies any abdominal pain, nausea, or vomiting. He is not feeling weak. He is unable to tell me the name of his primary care provider. Subjective/Events-last exam Pt reports feeling ok this morning. Still having difficulty with word finding. Plan is to go to MRI this morning. Objective Exam Vital Signs Vital Signs Date Time Temp Pulse Resp B/P (MAP) Pulse Ox O2 Delivery O2 Flow Rate FiO2 11/11/19 09:00 108 41 89 Room Air 11/11/19 08:00 37.0 Capillary Refill : Less Than 3 Seconds General Appearance: No Apparent Distress, WD/WN Respiratory: Lungs Clear, No Respiratory Distress Cardiovascular: Regular Rate, Rhythm, No Murmur Gastrointestinal: Normal Bowel Sounds, Non Tender, Soft Neurologic/Psychiatric: Alert, Oriented x3, Aphasia (expressive) Results/Procedures Lab Laboratory Tests 11/11/19 02:48 Patient resulted labs reviewed. Imaging: Reviewed Imaging Report Assessment/Plan Assessment and Plan Assess & Plan/Chief Complaint Acute ischemic stroke- with expressive aphasia Type II diabetes mellitus Tobacco abuse Hypokalemia CT head without evidence of stroke on arrival CTA with without occlusion or stenosis evident, mediastinal and axillary lymphadenopathy noted Due to high likelihood of acute stroke, TPA given in the ER Post thrombolytic protocol in place Neurochecks every 4 hours MRI ordered today Echo pending Continue home lisinopril and Lipitor Begin Levemir 10 units nightly, SSI Sliding scale insulin Nicotine patch ordered Continue to monitor and replace electrolytes as needed PT/OT consulted Speech therapy consulted IRF evaluation requested HTN Elevated troponin HLD Troponin mildly elevated at 0.07 on arrival - trended up this morning - Cardiology consulted, appreciate recs Recent cataract surgery Continue eyedrops Lymphadenopathy Incidental finding on CTA, will need follow-up and likely further imaging DVT prophylaxis: Start lovenox following MRI Diagnosis/Problems Diagnosis/Problems (1) T2DM (type 2 diabetes mellitus) Status: Chronic Qualifiers: Diabetes mellitus fdc insulin use: with intermediate project manager use Diabetes mellitus complication status: with other specified complication Qualified Codes: E11.69 - Type 2 diabetes mellitus with other specified complication; Z79.4 - rodent exterminator (current) use of insulin (2) Elevated troponin Status: Acute (3) HLD (hyperlipidemia) Status: Chronic (4) Cataract Status: Chronic Qualifiers: Cataract type: age-related Age-related cataract type: unspecified Laterality: unspecified laterality Qualified Codes: H25.9 - Unspecified age- related cataract (5) Lymphadenopathy Status: Acute (6) Acute ischemic stroke Status: Acute (7) HTN (hypertension) Status: Chronic Qualifiers: Hypertension type: essential hypertension Qualified Codes: I10 - Essential (primary) hypertension Clinical Quality Measures DVT/VTE Risk/Contraindication: Risk Factor Score Per Nursin RFS Level Per Nursing on Admit: 3=High Stroke: Date of last known well: November 10, 2019 Time of last known well: 01:00 Symptoms onset unknown: No LORENA HOLMAN MD Nov 11, 2019 09:17
--- NOTE | 2019-11-11 09:31 | ST Cognitive Linguistic Eval ---
Speech Evaluation-General Medical Diagnosis CVA Onset Date: November 10, 2019 Therapy Diagnosis Therapy Diagnosis: Expressive Aphasis Referral Referring Physician: Dr. Gonzales Reason for Referral: Evaluation/Treatment Medical History Pertinent Medical History: DM, HTN, Smoking Reviewed History: Yes Social History Current Living Status: Spouse Speech PLF-Current Status Prior Level of Function Patient lives at home with his . He was independent prior to current illness. Subjective Patient was cooperative with ST evaluation initially, however became agitated when he was unable to word find for simple personal information. Language Eval: Auditory Comprehends Simple Yes/No Ques: Functional Indent/Objects Multiple Lindsey: Functional Ident/Pics in Multiple Lindsey: Functional Follows 1-Step Commands: Mild Follows Complex Directions: Mild Follows General Conversations: Mild Language Eval: Verbal Language Completes Spontaneous Greeting: Functional Imitates Simple Words/Phrases: Functional Word Finding: Moderate Requests Basic Needs: Moderate States Basic Personal Info: Moderate Expresses Complex Ideas: Moderate Objective Cognitive Domain Attention: WNL Memory: Mild Problem Solving: Mild, Functional Executive Functions: WNL Composite Severity Rating: Moderate Objective Formal/Standardized Tests Sub tests of the WAB, informal q/a Results Moderate deficits for word finding to simple, personal related questions. Oral Motor/Speech Production Within Normal Limits Impression Patient is a 54 y/o male who was admitted to the ICU via ER with onset of CVA. Patient was reported to have decreased ability to word find related to himself. Patient was given portions of the WAB and informal q/a with moderate deficits of word finding. He was able to state his full name and birthday. He was unable to state where he lives. Patient will receive daily ST services for word finding activities in order to improve his ability in this area. Speech Short Term Goals Short Term Goals Short Term Goals 1) Patient will complete word finding tasks at 80% with minimal cues. 2) Patient will complete expressive language tasks at 80% with minimal cues. Speech Intermediate Goals Intermediate Goals Patient will improve expressive language in order to state his wants/needs with minimal cues. Speech-Plan Patient/Family Goals Patient/Family Goals: Patient plans on returning to his home upon hospital discharge. Treatment Plan Speech Therapy Treatment Plan: Continue Plan of Care Treatment Duration: Nov 22, 2019 Frequency: 4 times per week Estimated Hrs Per Day: .25 hour per day Rehab Potential: Good Barriers to Learning: Patient's recent CVA with expressive aphasia Pt/Family Agrees to Plan: Yes Safety Risks/Education Teaching Recipient: Patient Teaching Methods: Discussion Response to Teaching: Verbalize Understanding Education Topics Provided: Safety within his room and utilization of call light as needed. Time Speech Therapy Time In: 09:15 Speech Therapy Time Out: 09:30 Total Billed Time: 15 Billed Treatment Time 1, KETTY Britton Nov 11, 2019 09:31
[2019-11-11] MEDS: lisINopril 20 MG (PRINIVIL) TABLET PO SCH (09:34)
[2019-11-11] MEDS: prednisoLONE 1% OPTH (PRED FORTE) 5 ML BTL OP SCH ×4 (09:35→21:06)
[2019-11-11] MEDS: POLY/TRIMETH (POLYTRIM) OPHTH 10 ML BTL OP SCH ×4 (09:35→21:06)
--- NOTE | 2019-11-11 10:17 | Physical Therapy Evaluation ---
PT Evaluation-General Medical Diagnosis Admission Date November 10, 2019 at 05:00 Medical Diagnosis: CVA Onset Date: November 10, 2019 Therapy Diagnosis Therapy Diagnosis: debility Height/Weight Height (Feet): 5 Height (Inches): 11.00 Weight (Pounds): 358 Weight (Ounces): 1.0 Precautions Precautions/Isolations: Fall Prevention, Standard Precautions Weight Bear Status Right Lower Extremity: Right Weight Bearing/Tolerated Left Lower Extremity: Left Weight Bearing/Tolerated Referral Physician: Christian Reason for Referral: Evaluation/Treatment Medical History Pertinent Medical History: DM, HTN, Smoking Additional Medical History TPA administered Current History EMS secondary to inability to speak and right sided weakness Reviewed History: Yes Social History Home: Single Level Current Living Status: Spouse Prior Prior Level of Function SCALE: Activities may be completed with or without assistive devices. 3-Esaisyhldx-ynbnrjs completes the activity by him/herself with no assistance from a helper. 5-Set-up or Clean-up Assistance-helper sets up or cleans up; patient completes activity. [place] assists only prior to or following the activity. 4-Supervision or Touching Assistance-helper provides verbal cues and/or touchi ng/steadying and/or contact guard assistance as patient completes activity. Assistance may be provided throughout the activity or intermittently. 3-Partial/Moderate Assistance-helper does LESS THAN HALF the effort. [place] lifts, holds or supports trunk or limbs, but provides less than half the effort. 2-Substantial/Maximal Assistance-helper does MORE THAN HALF the effort. [place] lifts or holds trunk or limbs and provides more than half the effort. 3-Meyenbqte-cdfheu does ALL the effort. Patient does none of the effort to complete the activity. Or, the assistance of 2 or more helpers is required for the patient to complete the activity. If activity was not attempted, code reason: 7-Patient Refused. 9-Not Applicable-not attempted and the patient did not perform the activity before the current illness, exacerbation or injury. 10-Not Attempted due to Environmental Limitations-(lack of equipment, weather restraints, etc.). 88-Not Attempted due to Medical Conditions or Safety Concerns. Bed Mobility: 6 Transfers (B,C,W/C): 6 Gait: 6 Stairs: 6 Indoor Mobility (Ambulation): Independent Stairs: Independent Prior Devices Use: None PT Evaluation-Current Subjective Patient agrees to PT. He reports he wants to go home today. Pain Numeric Pain Scale: 0-No Pain Location: No Pain Reported Objective Patient Orientation: Normal For Age Attachments: Reddy Catheter, IV ROM/Strength ROM Lower Extremities bilateral LE WFL Strength Lower Extremities 4/5 grossly bilateral LE Integumentary/Posture Integumentary refer to nursing notes Bowel Incontinence: No Bladder Incontinence: Erddy Cath Posture WFL Neuromuscular (Tone, Coordination, Reflexes) grossly intact Sensory Vision: Functional Hearing: Functional Sensation Right Lower Extremit: Intact Sensation Left Lower Extremity: Intact Transfers Roll Left to Right (QC): 6 Sit to Lying (QC): 6 Lying to Sitting/Side of Bed(Q: 6 Sit to Stand (QC): 6 Chair/Bti-lo-Gikyi Xfer(QC): 6 Gait Does the Patient Walk?: Yes Mode of Locomotion: Walk Anticipated Mode of Locomotion: Walk Walk 10 feet (QC): 6 Walk 50 ft with 2 Turns(QC): 6 Walk 150 ft (QC): 6 Comments/Gait Description ER bilateral/functional gait sequence Balance Sitting Static: Normal Sitting Dynamic: Normal Standing Static: Normal Standing Dynamic: Normal Assessment/Needs 54 y.o. male will be seen short term by skilled PT to address functional mobility to ensure safe return to home. Rehab Potential: Fair PT Log Handler Goals Log Handler Goals PT Senior Living Goals Time Frame: Nov 15, 2019 Roll Left & Right (QC): 6 Sit to Lying (QC): 6 Lying-Sitting on Side/Bed(QC): 6 Sit to Stand (QC): 6 Chair/Iof-ks-Bkebu Xfer(QC): 6 Toilet Transfer (QC): 6 Does the Patient Walk: Yes Walk 10 feet (QC): 6 Walk 50ft with 2 Turns (QC): 6 Walk 150 ft (QC): 6 PT Plan Treatment/Plan Treatment Plan: Continue Plan of Care Treatment Plan: Education, Functional Activity Jay, Functional Strength, Gait, Safety, Therapeutic Exercise, Transfers Treatment Duration: Nov 15, 2019 Frequency: 5 times per week Estimated Hrs Per Day: .25 hour per day Patient and/or Family Agrees t: Yes Time/GCodes Time In: 850 Time Out: 909 Total Billed Treatment Time: 19 Total Billed Treatment 1 visit EVMod 19 min TALON CANELA PT Nov 11, 2019 10:17
--- NOTE | 2019-11-11 11:50 | Occupational Therapy Eval ---
OT Evaluation-General/PLF Medical Diagnosis Admission Date November 10, 2019 at 05:00 Medical Diagnosis: CVA Onset Date: November 10, 2019 Therapy Diagnosis Therapy Diagnosis: decr self care, decr act tolerance, cognitive problems, decr safety awarene Height/Weight Height (Feet): 5 Height (Inches): 11.00 Weight (Pounds): 358 Weight (Ounces): 1.0 Precautions Precautions/Isolations: Fall Prevention, Standard Precautions Referral Physician: Christian Referral Reason: Evaluation/Treatment Medical History Pertinent Medical History: DM, HTN, Smoking Additional Medical History Sleep apnea. Gout. Hyperlipidemia Current History Right sided weakness, slurred speech, word finding problems. Acute hyperglycemia Reviewed History: Yes Social History Home: Single Level Current Living Status: Spouse ADL-Prior Level of Function SCALE: Activities may be completed with or without assistive devices. 1-Wuizxhtbqr-slpqvko completes the activity by him/herself with no assistance from a helper. 5-Set-up or Clean-up Assistance-helper sets up or cleans up; patient completes activity. [place] assists only prior to or following the activity. 4-Supervision or Touching Assistance-helper provides verbal cues and/or touching/steadying and/or contact guard assistance as patient completes activity. Assistance may be provided throughout the activity or intermittently. 3-Partial/Moderate Assistance-helper does LESS THAN HALF the effort. [place] lifts, holds or supports trunk or limbs, but provides less than half the effort. 2-Substantial/Maximal Assistance-helper does MORE THAN HALF the effort. [place] lifts or holds trunk or limbs and provides more than half the effort. 1-Fudkxxwkb-zndxro does ALL the effort. Patient does none of the effort to complete the activity. Or, the assistance of 2 or more helpers is required for the patient to complete the activity. If activity was not attempted, code reason: 7-Patient Refused. 9-Not Applicable-not attempted and the patient did not perform the activity before the current illness, exacerbation or injury. 10-Not Attempted due to Environmental Limitations-(lack of equipment, weather restraints, etc.). 88-Not Attempted due to Medical Conditions or Safety Concerns. ADL PLOF Comments Pt reported that he was previously independent with basic self care. He was a poor historian and it is unknown if he had help with home care and if he drives. He is unemployed. Self Care: Independent Functional Cognition: Independent OT Current Status Subjective Pt seen in room, agreeable to OT. Fatigued from therapies and procedures this morning. Pt reported no pain Appearance Alert, cooperative, impulsive Mental Status/Objective Attachments: Central Line, IV Current Glasses/Contacts: Yes Hearing Aids: No Dentures/Partials: No Hand Dominance: Left Upper Extremity ROM Grossly WFL bilat. Difficulty following instructions for assessment Upper Extremity Strength Grossly 4/5 bilat, with difficulty following instructions for testing. ADL-Treatment ADL-Current Pt walked from his room in ICU to room in stepdown. Had difficulty following instructions to get to new room and needed physical cues, impulsive. Occasional unsteadiness observed. Difficulty following instructions and answering questions. Pt was able to kick shoes off. Walked 150 feet with PT earlier and with no AD. Declined other ADLs.Reddy removed by nursing. Pending MRI this afternoon. Pt left up in room, bed alarm on, call light present. Education OT Patient Education: Purpose of tx/functional activities, Rehab process Teaching Recipient: Patient Teaching Methods: Discussion Response to Teaching: Verbalize Understanding, Return Demonstration (with cues) OT Snack Bar Cook Goals Snack Bar Cook Goals Time Frame: Nov 25, 2019 Eating (QC): 6 Oral Hygiene (QC): 6 Toileting Hygiene (QC): 6 Shower/Bathe Self (QC): 6 Upper Body Dressing (QC): 6 Lower Body Dressing (QC): 6 On/Off Footwear (QC): 6 Additional Goals: 1-Demonstrate ADL Tasks, 2-Verbalize Understanding, 3-ImproveStrength/Jay 1=Demonstrate adherence to instructed precautions during ADL tasks. 2=Patient will verbalize/demonstrate understanding of assistive devices/modifications for ADL. 3=Patient will improve strength/tolerance for activity to enable patient to perform ADL's. OT Education/Plan Problem List/Assessment Assessment: Decreased Activ Tolerance, Decreased Safety Aware, Decreased UE Strength, Impaired Cognition, Impaired Self-Care Skills Pt would benefit from skilled OT to increase his independence in basic self care, to allow him to safely return home with family. Discharge Recommendations Plan/Recommendations: Continue POC Treatment Plan/Plan of Care Treatment,Training & Education: Yes Patient would benefit from OT for education, treatment and training to promote independence in ADL's, mobility, safety and/or upper extremity function for ADL's. Plan of Care: ADL Retraining, Functional Mobility, UE Funct Exercise/Act, UE Neuromus Re-Ed/Coord Treatment Duration: Nov 25, 2019 Frequency: 5 times per week Estimated Hrs Per Day: .5 hour per day Agreement: Yes Rehab Potential: Fair Time/GCodes Start Time: 11:05 () Stop Time: 11:23 Total Time Billed (hr/min): 18 Billed Treatment Time visit, evaluation 18 minutes, moderate intensity NAY SERRANO OT Nov 11, 2019 11:50
[2019-11-11] MEDS ORDERED: GADOBUTROL 10 MMOL/10 ML (GADAVIST) VIAL IV ONE (12:15)
--- NOTE | 2019-11-11 12:59 | Diagnostic Imaging Report ---
CLINICAL INDICATION: Possible stroke. EXAM: MRI of the brain performed without and with 10 cc of Gadavist IV contrast. Sequences include axial DWI, ADC map, coronal gradient echo, axial T2, axial FLAIR, axial T1, axial T1 post IV contrast, coronal T1 fat-sat post IV contrast, and sagittal T1 post IV contrast. COMPARISON: CT angiogram of the head/neck dated 11/10/2019. FINDINGS: There is a kxkdz-wp-adcmfnev sized area of diffusion restriction involving the cortical, subcortical white matter area of the lateral left parietal lobe, posterior left frontal lobe, posterior left insula and superior left temporal lobe region. There is some normalization of DWI signal suspected in the white matter of the lara radiata and centrum semiovale of the left cerebral hemisphere in the infarct region. There is no parenchymal IV contrast enhancement, but there is some increased vascularity in the leptomeningeal region, which may be related to luxury perfusion repetitive changes. There is no evidence of hemorrhagic transformation. There is grossly 1-2 mm left to right midline shift. The brain parenchymal volume appears appropriate for patient's age. There are other areas of focal and patchy high T2 signal white matter changes involving both cerebral hemispheres, likely representing chronic small vessel ischemic disease. There is no hydrocephalus. Basal cisterns are unremarkable. The [place] vascular structures show no gross abnormality as visualized. The extracranial soft tissues, skull, and orbits show no significant abnormality. There is minimal mucosal thickening involving the frontal sinus and mild ethmoid sinus mucosal thickening. There is minimal mucosal thickening involving the right mastoid air cell. IMPRESSION: 1: There are findings representing subacute infarct involving the posterior left cerebral hemisphere which is in the left MCA distribution. There is associated parenchymal edema with minimal left to right midline shift. There is no hemorrhagic transformation. 2: Age related brain parenchymal changes with chronic small vessel ischemic disease. Dictated by: Dictated on workstation # [id number]
--- NOTE | 2019-11-11 14:55 | Consultation-Cardiology ---
HPI-Cardiology Cardiology Consultation: Date of Consultation 11/11/19 Date of Admission Attending Physician Lani Gonzales MD Admitting Physician No,Local Physician Consulting Physician Calvin STORM MD HPI: Time Seen by a Provider: 13:00 Chief Complaint: Acute stroke. This is a 54-year-old gentleman with known history of hypertension, hyperlipidemia and diabetes. He is an active smoker. No significant work and family history. He presented with right-sided weakness and slurred speech. Diagnosis of acute stroke. He was given thrombolytic therapy. Cardiology was consulted for evaluating cardiac source of embolization. CT angiography showed no significant carotid disease. When I saw the patient he denies any chest pain or shortness of breath. Review of Systems-Cardiology Review of Systems Constitutional: As described under HPI; No As described under HPI, No no symptoms reported, No chills, No fever, No lightheadedness Eyes: No As described under HPI, No no symptoms reported, No blindness, No blurred vision, No contact lenses, No drainage, No decreased acuity, No foreign body sensation, No pain, No vision change Ears/Nose/Throat: No As described under HPI, No no symptoms reported, No chronic hearing loss, No ear discharge, No ear pain, No nasal drainage, No ulcerations Respiratory: No no symptoms reported; As described under HPI; No As described u nder HPI, No cough, No orthopnea, No shortness of breath, No SOB with excertion Cardiovascular: No no symptoms reported; As described under HPI; No As described under HPI, No chest pain, No edema, No irregular heart rate, No lightheadedness, No palpitations Gastrointestinal: No no symptoms reported, No As described under HPI, No abdomen distended, No abdominal pain, No blood streaked bowels, No constipation, No diarrhea, No nausea, No vomiting, No stool coloration changes Genitourinary: No As described under HPI, No burning, No dysuria, No discharge, No frequency, No flank pain, No hematuria, No urgency Skin: No rash, No skin related problems, No ulcerations Psychiatric/Neurological: As described under HPI; No anxiety, No depression, No seizure, No focal weakness, No syncope Hematologic: No bleeding abnormalities All Other Systems Reviewed Negative Unless Noted: Yes JKZ-Jvscoq-Djksky Hx Patient Social History Alcohol Use: Denies Use Recreational Drug Use: No Smoking Status: Current Everyday Smoker Type Used: Cigarettes Recent Foreign Travel: No Recent Infectious Disease Expo: No Hospitalization with Isolation: Denies Immunizations Up To Date Tetanus Booster (TDap): Unknown Past Medical History PMH As described under Assessment. Family Medical History Family History: Coronary thrombosis 19 FATHER Diabetes mellitus G8 BROTHER FH: lung cancer 19 MOTHER (MOTHER FROM LUNG [place]) Hypercholesterolemia 19 FATHER Myocardial infarction 19 FATHER ( FROM [place]) Allergies and Home Medications Allergies Coded Allergies: No Known Drug Allergies (Unverified , 02/26/14) Home Medications Atorvastatin Calcium 20 Mg Tablet, 20 MG PO HS, (Reported) Insulin Aspart 300 Units/3 Ml Solution, 15 UNITS SQ TIDAC, (Reported) Lisinopril 20 Mg Tablet, 20 MG PO DAILY, (Reported) Metformin HCl 1,000 Mg Tablet, 1,000 MG PO BID, (Reported) Polymyxin B Sulf/Trimethoprim 10 Ml Drops, 10 ML OP QID, (Reported) Prednisolone Acetate 5 Ml Drops.susp, 5 ML OP QID, (Reported) Patient Home Medication List Home Medication List Reviewed: Yes Physical Exam-Cardiology Physical Exam Vital Signs/I&O 11/12/19 11/12/19 11/12/19 11/12/19 04:00 04:00 07:07 08:00 Temp 36.9 36.2 Pulse 108 101 103 Resp 18 B/P (MAP) 122/81 (95) 158/99 (118) Pulse Ox 95 93 O2 Delivery Room Air Room Air Room Air 11/12/19 08:00 O2 Delivery Room Air 11/12/19 00:00 Intake Total 410 ml Output Total 600 ml Balance -190 ml Capillary Refill : Less Than 3 Seconds Constitutional: appears stated age, AAO x 3; No apparent distress; well- developed, well-nourished HEENT: PERRL; No discharge; hearing is well preserved, oral hygience is good; No ulceration, No xanthelasmas are seen Neck: No carotid bruit; carotid pulses are 2 + bilaterally Respiratory: chest is bilaterally symmetric, lungs clear to auscultation Cardiovascular: regular rate-rhythm, S1 and S2; No diastolic murmur, No systolic murmur Gastrointestinal: soft, audible bowel sounds; No spleenomegaly Rectal: deferred Extremities: normal range of motion, non-tender, normal inspection; No clubbing, No cyanosis; no lower extremity edema bilateral; No significant edema Neurologic/Psychiatric: alert, normal mood/affect, oriented x 3 Skin: normal color, warm/dry; No rash, No ulcerations Data Review Labs Laboratory Tests 11/11/19 15:45: Glucometer 97 11/11/19 21:03: Glucometer 133H 11/12/19 05:26: Glucometer 126H 11/12/19 11:02: Glucometer 185H Microbiology 11/10/19 MRSA Screen - Final, Complete MRSA not isolated ECG Impression ECG Comment Sinus rhythm, PACs, right bundle branch block, left anterior fascicular block, LVH. A/P-Cardiology Assessment/Admission Diagnosis Acute stroke, status post thrombolytics, Positive cardiac enzymes. Smoking, DM, HTN, Hyperlipidemia, RBBB, LAFB, LVH on EKG. Plan Acute stroke, status post thrombolytics, resolution. Will require rehabilitation. Telemetry does not show atrial fibrillation. Echocardiogram showed no in tracardiac shunting. However moderate to severe LV systolic dysfunction is noted. No clear clot was seen. CT angiography shows no significant carotid disease. Eliquis or oral anticoagulation may be reasonable but will discuss with the primary team. Positive cardiac enzymes. Coronary angiography is contraindicated in an acute stroke for at least a month. I will recommend nuclear stress testing as a starting point. Likely require coronary angiography after one month of the index event. Smoking, smoking cessation was strongly recommended. DM, defer to the primary team. HTN, aggressive blood pressure management. Hyperlipidemia, high-dose Lipitor therapy. RBBB, continue to follow. 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 LVH on EKG. recommend echocardiogram. Thank you for your consultation. Please call me if you have any questions. Monika Storm MD, FACP, FACC, FSCAI, FHRS, CCDS Interventional Cardiology Cardiac Electrophysiology Vascular Medicine and Endovascular Interventions Clinical Quality Measures DVT/VTE Risk/Contraindication: Risk Factor Score Per Nursin RFS Level Per Nursing on Admit: 3=High Stroke: Date of last known well: November 10, 2019 Time of last known well: 01:00 Symptoms onset unknown: Calvin Tineo MD Nov 11, 2019 14:55
--- NOTE | 2019-11-11 15:22 | Occupational Ther Daily Note ---
OT Current Status-Daily Note Subjective Pt dozing in bed, alerted to name. Pt kept saying "oh my" and demonstrated ataxic movements as if to clear head. When asked if pt felt dizzy, pt said yes but would not initiate voicing symptoms. Mental Status/Objective Patient Orientation: Person ADL-Treatment Pt required min A for supine to EOB then CGA sitting EOB. SBA for EOB to supine. While sitting EOB, pt was moving in a circular pattern though no LOB noted. Pt crossed foot over knee to doff/don socks with difficulty. Pt required verbal/gestural cues to stay focused on tasks completed. Sock would fall from pt's hand and would go unnoticed then pt would ask what to do. Pt required assist to problem solve how to thread sock onto foot when sock got stuck in toes. Pt became agitated at this. Per clinical judgment, pt would have difficulty focusing, initiating and completing ADL tasks that would require min A to mod A for safety and retraining. After therapy, pt lying in bed with safety measures in place. Call light/phone in reach. All needs met in room. Therapy Code Descriptions/Definitions Functional [place] Measure: 0=Not Assessed/NA 4=Minimal Assistance 1=Total Assistance 5=Supervision or Setup 2=Maximal Assistance 6=Modified [place] 3=Moderate Assistance 7=Complete IndependenceSCALE: Activities may be completed with or without assistive devices. 8-Nheyckenhs-cnwezmr completes the activity by him/herself with no assistance from a helper. 5-Set-up or Clean-up Assistance-helper sets up or cleans up; patient completes activity. [place] assists only prior to or following the activity. 4-Supervision or Touching Assistance-helper provides verbal cues and/or touching/steadying and/or contact guard assistance as patient completes activity. Assistance may be provided throughout the activity or intermittently. 3-Partial/Moderate Assistance-helper does LESS THAN HALF the effort. [place] lifts, holds or supports trunk or limbs, but provides less than half the effort. 2-Substantial/Maximal Assistance-helper does MORE THAN HALF the effort. [place] lifts or holds trunk or limbs and provides more than half the effort. 1-Zbtlfldzd-xxszez does ALL the effort. Patient does none of the effort to c omplete the activity. Or, the assistance of 2 or more helpers is required for the patient to complete the activity. If activity was not attempted, code reason: 7-Patient Refused. 9-Not Applicable-not attempted and the patient did not perform the activity before the current illness, exacerbation or injury. 10-Not Attempted due to Environmental Limitations-(lack of equipment, weather restraints, etc.). 88-Not Attempted due to Medical Conditions or Safety Concerns. Eating (QC): 5 (per clinical judgement) Oral Hygiene (QC): 5 (per clinical judgement) Shower/Bathe Self (QC): 3 (mod A per clinical judgement) Upper Body Dressing (QC): 3 (min A per clinical judgement) Lower Body Dressing (QC): 3 (mod A per clinical judgment) On/Off Footwear: 3 (min A) OT Steel Heater Goals Steel Heater Goals Time Frame: Nov 25, 2019 Eating (QC): 6 Oral Hygiene (QC): 6 Toileting Hygiene (QC): 6 Shower/Bathe Self (QC): 6 Upper Body Dressing (QC): 6 Lower Body Dressing (QC): 6 On/Off Footwear (QC): 6 Additional Goals: 1-Demonstrate ADL Tasks, 2-Verbalize Understanding, 3- ImproveStrength/Jay 1=Demonstrate adherence to instructed precautions during ADL tasks. 2=Patient will verbalize/demonstrate understanding of assistive devices/modifications for ADL. 3=Patient will improve strength/tolerance for activity to enable patient to perform ADL's. OT Education/Plan Problem List/Assessment Assessment: Decreased Activ Tolerance, Decreased Safety Aware, Decreased UE Strength, Impaired Cognition, Impaired Coordination, Impaired Funct Balance, Impaired Self-Care Skills Pt would benefit from skilled OT to increase his independence in basic self care, to allow him to safely return home with family. Discharge Recommendations Plan/Recommendations: Continue POC Treatment Plan/Plan of Care Patient would benefit from OT for education, treatment and training to promote independence in ADL's, mobility, safety and/or upper extremity function for ADL's. Plan of Care: ADL Retraining, Functional Mobility, UE Funct Exercise/Act, UE Neuromus Re-Ed/Coord Treatment Duration: Nov 25, 2019 Frequency: 5 times per week Estimated Hrs Per Day: .5 hour per day Agreement: Yes Rehab Potential: Fair Time/GCodes Start Time: 14:55 Stop Time: 13:10 Total Time Billed (hr/min): 15 Billed Treatment Time 1 visit-ADL 1 (15 min) BENNY LAWTON Nov 11, 2019 15:22
--- NOTE | 2019-11-11 16:20 | NUR ---
IRF Evaluation Order received to evaluate patient for the ARU. Chart review complete and findings discussed with Dr. Inman - patient accepted. It is noted patient's primary insurance provider is [place] [employer]; therefore, insurance authorization will need to be obtained prior to admission. Prior authorization process initiated and clinical information submitted for review. Will continue to follow. Thank you for this referral.
[2019-11-11] MEDS ORDERED: NS IV 500 ML 500 ML IV ONE (19:45)
[2019-11-11] MEDS: APIXABAN 5 MG (ELIQUIS) TABLET PO SCH (21:07)
[2019-11-12] MEDS: NS IV 1000 ML 1,000 ML IV SCH ×3 (03:14→10:15)
[2019-11-12 04:00] VITALS: BP 122/81
[2019-11-12] MEDS: inSUlin ASPART (NovoLOG) 1 UNIT/0.01 ML (CHARGE PER UNIT) SC SCH ×4 (06:42→20:51)
--- NOTE | 2019-11-12 07:46 | Diagnostic Imaging Report ---
CHEST 1 VIEW, AP/PA ONLY Indication: Stroke Comparison: 11/11/2019 Findings: Right basilar heterogeneous opacities have worsened. No pleural effusion or pneumothorax. Stable enlargement of cardiac silhouette. Impression: 1. Worsening of right basilar pulmonary opacities could be on the basis of atelectasis. Alternatively, pneumonia or aspiration could give this appearance. Dictated by: Dictated on workstation # [id number]
[2019-11-12 08:00] VITALS: BP 158/99
[2019-11-12] MEDS: POLY/TRIMETH (POLYTRIM) OPHTH 10 ML BTL OP SCH ×4 (09:12→20:58)
[2019-11-12] MEDS: prednisoLONE 1% OPTH (PRED FORTE) 5 ML BTL OP SCH ×4 (09:12→20:58)
[2019-11-12] MEDS: lisINopril 20 MG (PRINIVIL) TABLET PO SCH (09:12)
[2019-11-12] MEDS: APIXABAN 5 MG (ELIQUIS) TABLET PO SCH ×2 (09:12→20:58)
--- NOTE | 2019-11-12 09:49 | NUR ---
CM/SS visited with the patient for social service consult. The patient was in his room watching t.v. at the time of visit. He states that he just "really wants to get out of here". The patient appeared to have difficulty finding his words during conversation. This seemed to make him more agitated. The patient states he was getting around the house well before this hospital stay. He verbalized that he has a walker that he could access if he needed at time of discharge. AMELIA/JORGE was called out of the room to talk with Kary MURPHY. She reports that the patient appeared to get agitated during his physical therapy and threw his walker. The patient lives with a friend Sheri who is frequently in the hospital herself. CM/SS asked the patient if he would be willing to have home health at first he was not willing. CM/SS discussed the benefits of having home health and he was agreeable at the time. The patient would benefit from detention skilled or inpatient rehab if he is willing. CM/SS will continue to follow to assist with discharge planning.
--- NOTE | 2019-11-12 10:27 | Physical Therapy Daily Note ---
PT Daily Note-Current Subjective Patient is very agitated and voices frustration with wanting to go home. Pain Numeric Pain Scale: 0-No Pain Location: No Pain Reported Mental Status Patient Orientation: Confused Transfers SCALE: Activities may be completed with or without assistive devices. 5-Yzmkyuirbk-yrrnczu completes the activity by him/herself with no assistance from a helper. 5-Set-up or Clean-up Assistance-helper sets up or cleans up; patient completes activity. [place] assists only prior to or following the activity. 4-Supervision or Touching Assistance-helper provides verbal cues and/or touching/steadying and/or contact guard assistance as patient completes activity. Assistance may be provided throughout the activity or intermittently. 3-Partial/Moderate Assistance-helper does LESS THAN HALF the effort. [place] lifts, holds or supports trunk or limbs, but provides less than half the effort. 2-Substantial/Maximal Assistance-helper does MORE THAN HALF the effort. [place] lifts or holds trunk or limbs and provides more than half the effort. 7-Kpxlstgkj-lfnjzr does ALL the effort. Patient does none of the effort to complete the activity. Or, the assistance of 2 or more helpers is required for the patient to complete the activity. If activity was not attempted, code reason: 7-Patient Refused. 9-Not Applicable-not attempted and the patient did not perform the activity before the current illness, exacerbation or injury. 10-Not Attempted due to Environmental Limitations-(lack of equipment, weather restraints, etc.). 88-Not Attempted due to Medical Conditions or Safety Concerns. Roll Left & Right (QC): 6 Sit to Lying (QC): 6 Lying to Sitting/Side of Bed(Q: 6 Sit to Stand (QC): 5 Chair/Yfe-lv-Zfaev Xfer(QC): 5 Weight Bearing Right Lower Extremity: Right Weight Bearing/Tolerated Left Lower Extremity: Left Weight Bearing/Tolerated Gait Training Does the Patient Walk?: Yes Distance: 400' Walk 10 feet (QC): 4 Walk 50 ft with 2 Turns(QC): 4 Walk 150 ft (QC): 4 Gait Assistive Device: FWW CGA for safety Assessment Patient becomes very agitated during therapy session. PT was able to calm patient, however, patient is highly unaware of safety concerns. Patient did aggressively set aside the FWW after use. PT Waiter/Waitress Formal Goals Senior Care Goals PT Waiter/Waitress Formal Goals Time Frame: Nov 15, 2019 Roll Left & Right (QC): 6 Sit to Lying (QC): 6 Lying-Sitting on Side/Bed(QC): 6 Sit to Stand (QC): 6 Chair/Rzj-wb-Feghx Xfer(QC): 6 Toilet Transfer (QC): 6 Does the Patient Walk: Yes Walk 10 feet (QC): 6 Walk 50ft with 2 Turns (QC): 6 Walk 150 ft (QC): 6 PT Plan Treatment/Plan Treatment Plan: Continue Plan of Care Treatment Plan: Education, Functional Activity Jay, Functional Strength, Gait, Safety, Therapeutic Exercise, Transfers Treatment Duration: Nov 15, 2019 Frequency: 5 times per week Estimated Hrs Per Day: .25 hour per day Patient and/or Family Agrees t: Yes Time/GCodes Time In: 944 Time Out: 1000 Total Billed Treatment Time: 16 Total Billed Treatment 1 visit FA 16 min TALON CANELA PT Nov 12, 2019 10:27
[2019-11-12 12:00] VITALS: BP 153/91
--- NOTE | 2019-11-12 13:15 | Progress Note - Hospitalist ---
Subjective HPI/CC On Admission Date Seen by Provider: Nov 12, 2019 Time Seen by Provider: 13:06 Delon Lacy is a 54-year-old male with past medical history of hypertension, hyperlipidemia, type II diabetes mellitus, who presented with right-sided weakness and slurred speech. He is a poor historian due to word finding difficulties on my examination. He was reportedly well prior to 1 a.m. when he says he had an acute change in his status. He is unable to tell me what he is feeling at that time. Upon his arrival to the emergency room, he underwent a CT scan which did not show any acute stroke. With his symptoms, he was given TPA. He has no complaints or concerns this morning. He denies any fevers or chills. He denies any chest pain or shortness of breath. He denies any cough. He denies any abdominal pain, nausea, or vomiting. He is not feeling weak. He is unable to tell me the name of his primary care provider. Subjective/Events-last exam Upon entering room patient had stated that he was going to leave AMA. I discussed with him the reason we wanted him to stay and that there was concern for his heart function. I explained that due to the low EF he was at higher risk for SCD and that we would like to do further work up on his heart and arrange for him to get a LifeVest. At the end of our conversation he only responded with "another king " and then asked for the phone. Objective Exam Vital Signs Vital Signs Date Time Temp Pulse Resp B/P (MAP) Pulse Ox O2 Delivery O2 Flow Rate FiO2 11/12/19 08:00 Room Air 11/12/19 08:00 36.2 103 18 158/99 (118) 93 Capillary Refill : Less Than 3 Seconds General Appearance: No Apparent Distress, Chronically ill Respiratory: Lungs Clear, No Accessory Muscle Use, No Respiratory Distress Cardiovascular: Regular Rate, Rhythm, No Murmur Neurologic/Psychiatric: Alert, Oriented x3 Results/Procedures Lab Patient resulted labs reviewed. Imaging: Reviewed Imaging Report Assessment/Plan Assessment and Plan Assess & Plan/Chief Complaint Acute ischemic stroke- with expressive aphasia Type II diabetes mellitus Tobacco abuse Hypokalemia CT head without evidence of stroke on arrival CTA with without occlusion or stenosis evident, mediastinal and axillary lymphadenopathy noted Due to high likelihood of acute stroke, TPA given in the ER Post thrombolytic protocol in place Neurochecks every 4 hours MRI shows subacute MCA infarct Echo with EF of 20-25% and grade 2 diastolic dysfunction Continue home lisinopril and Lipitor Continue Levemir 10 units nightly, SSI Sliding scale insulin Nicotine patch ordered Continue to monitor and replace electrolytes as needed PT/OT consulted Speech therapy consulted IRF evaluation requested- could potentially be accepted but I do not think patient will agree to go Cardiomyopathy HTN Elevated troponin HLD Troponin elevation - Cardiology consulted, appreciate recs - EF 20-25% with grade 2 diastolic dysfunction - Will need LifeVest and possible loop recorder - concern for a-fib as underlying cause of stroke so will start on eliquis for stroke ppx Recent cataract surgery Continue eyedrops Lymphadenopathy Incidental finding on CTA, will need follow-up and likely further imaging DVT prophylaxis: Eliquis as above Diagnosis/Problems Diagnosis/Problems (1) Acute ischemic stroke Status: Acute (2) T2DM (type 2 diabetes mellitus) Status: Chronic Qualifiers: Diabetes mellitus termite treater insulin use: with mcc use Diabetes mellitus complication status: with other specified complication Qualified Codes: E11.69 - Type 2 diabetes mellitus with other specified complication; Z79.4 - detention (current) use of insulin (3) Elevated troponin Status: Acute (4) HLD (hyperlipidemia) Status: Chronic Qualifiers: Hyperlipidemia type: unspecified Qualified Codes: E78.5 - Hyperlipidemia, unspecified (5) Cataract Status: Chronic Qualifiers: Cataract type: age-related Age-related cataract type: unspecified Laterality: unspecified laterality Qualified Codes: H25.9 - Unspecified age- related cataract (6) Lymphadenopathy Status: Acute (7) HTN (hypertension) Status: Chronic Qualifiers: Hypertension type: essential hypertension Qualified Codes: I10 - Essential (primary) hypertension Clinical Quality Measures DVT/VTE Risk/Contraindication: Risk Factor Score Per Nursin RFS Level Per Nursing on Admit: 3=High Stroke: Date of last known well: November 10, 2019 Time of last known well: 01:00 Symptoms onset unknown: LORENA Wilson MD Nov 12, 2019 13:15
--- NOTE | 2019-11-12 13:22 | Cardiology Progress Note ---
Cardiology SOAP Progress Note Subjective: No cardiac complaints. Objective: I&O/Vital Signs 11/12/19 11/12/19 11/12/19 11/12/19 04:00 04:00 07:07 08:00 Temp 36.9 36.2 Pulse 108 101 103 Resp 18 B/P (MAP) 122/81 (95) 158/99 (118) Pulse Ox 95 93 O2 Delivery Room Air Room Air Room Air 11/12/19 08:00 O2 Delivery Room Air 11/12/19 00:00 Intake Total 410 ml Output Total 600 ml Balance -190 ml Weight (Pounds): 358 Weight (Ounces): 1.0 Weight (Calculated Kilograms): 162.063148 Constitutional: appears stated age, AAO x 3; No apparent distress; well- developed, well-nourished Respiratory: chest is bilaterally symmetric, lungs clear to auscultation Cardiovascular: regular rate-rhythm, S1 and S2; No diastolic murmur, No systolic murmur Gastrointestional: soft, audible bowel sounds; No spleenomegaly Extremities: normal range of motion, non-tender, normal inspection; No clubbing, No cyanosis; no lower extremity edema bilateral; No significant edema Neurologic/Psychiatric: alert, normal mood/affect, oriented x 3 Skin: normal color, warm/dry; No rash, No ulcerations Results/Procedures: Labs Laboratory Tests 11/11/19 15:45: Glucometer 97 11/11/19 21:03: Glucometer 133H 11/12/19 05:26: Glucometer 126H 11/12/19 11:02: Glucometer 185H Microbiology 11/10/19 MRSA Screen - Final, Complete MRSA not isolated A/P: Assessment/Dx: Acute stroke, status post thrombolytics, Positive cardiac enzymes. Smoking, DM, HTN, Hyperlipidemia, RBBB, LAFB, LVH on EKG. Plan: Acute stroke, status post thrombolytics, resolution. Will require rehabilitation. Echocardiogram shows moderate LVH with moderate diastolic dysfunction. Normal LVEF. EF is 20-25 percent. Telemetry does not show atrial fibrillation. Echocardiogram showed no intracardiac shunting. However moderate to severe LV systolic dysfunction is noted. No clear clot was seen. CT angiography shows no significant carotid disease. Eliquis or oral anticoagulation may be reasonable but will discuss with the primary team. Patient may require an implantable loop recorder for long-term surveillance for atrial fibrillation. Positive cardiac enzymes. Coronary angiography is contraindicated in an acute stroke for at least a month. I will recommend nuclear stress testing as a starting point. Likely require coronary angiography after one month of the index event. Will request nuclear stress testing. New diagnosis of cardiomyopathy: Unclear etiology. Will start with nuclear stress testing. Start treatment for cardiomyopathy. Coronary angiography in a month. I discuss with Dr. Hayden and will recommend Eliquis for acute stroke however there is no clear indication since we did not see LV thrombus. Dr. Pitts will discuss with the patient. There is a concern of noncompliance. Smoking, smoking cessation was strongly recommended. DM, defer to the primary team. HTN, aggressive blood pressure management. Hyperlipidemia, high-dose Lipitor therapy. RBBB, continue to follow. 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 LVH on EKG. echocardiogram shows mild to moderate LVH with diastolic dysfunction. Thank you for your consultation. Please call me if you have any questions. Monika Roque MD, FACP, FACC, FSCAI, FHRS, CCDS Interventional Cardiology Cardiac Electrophysiology Vascular Medicine and Endovascular Interventions Clinical Quality Measures Stroke: Date of last known well: November 10, 2019 Time of last known well: 01:00 Symptoms onset unknown: No Calvin ROQUE MD Nov 12, 2019 13:22
[2019-11-12] MEDS ORDERED: REGADENOSON 0.4 MG/5 ML SYR (LEXISCAN) IV ONE (13:30)
--- NOTE | 2019-11-12 14:02 | NUR ---
RD ASSESSMENT PMHx: HTN; HLD; DM: gout PT INTERACTION: Pt was semi-awake and pleasant during nutrition assessment. Note pt is a poor historian per chart review. Pt states current appetite is good. Note avg PO intake 88% x2d, per chart review. Pt states following a regular diet at home, and has no issues with chewing/swallowing food. Pt states no recent issues with nausea, vomiting, constipation or diarrhea. Pt states last BM was "around the time I got here." Note no BM has been recorded, and pt not currently on bowel regimen per chart review. Pt states no recent wt changes. Note recent 13# wt loss x3mon, per chart review. Pt states current DM management is good. Note unable to determine recent HbA1c, per chart review. ABNORMAL NUTRITION-RELATED LAB VALUES LOW: K 3.5; HDL 32 HIGH: Cl 109; glu 131 Est. kcal needs: 7854-5100 kcal | 15-18 kcal/kg Est. Pro needs: 86-108 g Pro | 0.8-1.0 g Pro/kg PES STATEMENT: Given current PO intake, no nutrition diagnosis at this time (NO-1.1) INTERVENTION: Continue with current diet order of DYS2 Mechanically Altered diet. Pt may benefit from consistent CHO restriction if blood glucose levels become elevated. Offered and began discussing diet education on DM management, but pt fell asleep. Will offer again prior to discharge. Will continue to follow and reassess as pt needs, intake, and status change. MONITOR/EVALUATE: PO Intake; Plan of Care; Hydration Status; Weight Status; Lab Values Melo Dunn MS, ODESSA, ARELY Addendum: 11/12/19 at [address] Note pt currently NPO.
--- NOTE | 2019-11-12 14:44 | Occupational Ther Daily Note ---
OT Current Status-Daily Note Subjective Pt resting in bed, continually states "I just need to get out of here." ADL-Treatment Pt declined bathing tasks. Gown is dirty, agrees to change gown. Pt supine to sit without assist using bed rails. Pt doffed gown without assist. Donned clean gown with set up. Pt has word finding difficulty and becomes frustrated. Sit to supine without assist. Pt resting in bed, talking on phone with needs met after session. Therapy Code Descriptions/Definitions Functional [place] Measure: 0=Not Assessed/NA 4=Minimal Assistance 1=Total Assistance 5=Supervision or Setup 2=Maximal Assistance 6=Modified [place] 3=Moderate Assistance 7=Complete IndependenceSCALE: Activities may be completed with or without assistive devices. 9-Avlrlhxzgb-bfravvz completes the activity by him/herself with no assistance from a helper. 5-Set-up or Clean-up Assistance-helper sets up or cleans up; patient completes activity. [place] assists only prior to or following the activity. 4-Supervision or Touching Assistance-helper provides verbal cues and/or touching/steadying and/or contact guard assistance as patient completes activity. Assistance may be provided throughout the activity or intermittently. 3-Partial/Moderate Assistance-helper does LESS THAN HALF the effort. [place] lifts, holds or supports trunk or limbs, but provides less than half the effort. 2-Substantial/Maximal Assistance-helper does MORE THAN HALF the effort. [place] lifts or holds trunk or limbs and provides more than half the effort. 0-Qjlpkqwpg-gibgok does ALL the effort. Patient does none of the effort to complete the activity. Or, the assistance of 2 or more helpers is required for the patient to complete the activity. If activity was not attempted, code reason: 7-Patient Refused. 9-Not Applicable-not attempted and the patient did not perform the activity before the current illness, exacerbation or injury. 10-Not Attempted due to Environmental Limitations-(lack of equipment, weather restraints, etc.). 88-Not Attempted due to Medical Conditions or Safety Concerns. OT Long-Term Goals Long-Term Goals Time Frame: Nov 25, 2019 Eating (QC): 6 Oral Hygiene (QC): 6 Toileting Hygiene (QC): 6 Shower/Bathe Self (QC): 6 Upper Body Dressing (QC): 6 Lower Body Dressing (QC): 6 On/Off Footwear (QC): 6 Additional Goals: 1-Demonstrate ADL Tasks, 2-Verbalize Understanding, 3- ImproveStrength/Jay 1=Demonstrate adherence to instructed precautions during ADL tasks. 2=Patient will verbalize/demonstrate understanding of assistive devices/modifications for ADL. 3=Patient will improve strength/tolerance for activity to enable patient to perform ADL's. OT Education/Plan Problem List/Assessment Pt would benefit from skilled OT to increase his independence in basic self care, to allow him to safely return home with family. Discharge Recommendations Plan/Recommendations: Continue POC Treatment Plan/Plan of Care Patient would benefit from OT for education, treatment and training to promote independence in ADL's, mobility, safety and/or upper extremity function for ADL's. Plan of Care: ADL Retraining, Functional Mobility, UE Funct Exercise/Act, UE Neuromus Re-Ed/Coord Treatment Duration: Nov 25, 2019 Frequency: 5 times per week Estimated Hrs Per Day: .5 hour per day Agreement: Yes Rehab Potential: Fair Time/GCodes Start Time: 14:14 Stop Time: 14:26 Total Time Billed (hr/min): 12 Billed Treatment Time 1 visit, ADL(12minutes) PAULINE BONILLA OT Nov 12, 2019 14:44
[2019-11-12 16:00] VITALS: BP 134/85
[2019-11-12 20:00] VITALS: BP 120/79
[2019-11-12] MEDS: meTOprolol TARTRATE 50 MG (LOPRESSOR) TAB PO SCH (20:58)
[2019-11-13] VITALS (7 sets, daily range): BP systolic 109–135; BP diastolic 68–89
[2019-11-13 03:42] LABS: HEMOGLOBIN 12.5 G/DL (13.3-17.7); MEAN PLATELET VOLUME 10.5 FL (7.4-10.4); RED CELL DISTRIBUTION WIDTH 13.8 % (10.0-14.5); WHITE BLOOD COUNT 13.8 10^3/uL (4.3-11.0)
[2019-11-13 03:51] LABS: CHLORIDE 108 MMOL/L (98-107); POTASSIUM 3.7 MMOL/L (3.6-5.0); SODIUM 138 MMOL/L (135-145)
[2019-11-13 03:53] LABS: CALCIUM 8.7 MG/DL (8.5-10.1); GLUCOSE 125 MG/DL (70-105)
[2019-11-13 03:54] LABS: CARBON DIOXIDE 19 MMOL/L (21-32)
[2019-11-13 03:57] LABS: CREATININE SERUM 0.74 MG/DL (0.60-1.30); GFR ESTIMATED > 60
[2019-11-13 03:58] LABS: BUN/CREATININE RATIO 23
[2019-11-13] MEDS: inSUlin ASPART (NovoLOG) 1 UNIT/0.01 ML (CHARGE PER UNIT) SC SCH ×4 (05:07→20:33)
--- NOTE | 2019-11-13 10:18 | Occupational Ther Daily Note ---
OT Current Status-Daily Note Subjective Pt sitting in chair, agrees to therapy. Pt has no c/o pain, but states he is very thirsty due to being NPO for test. Pt states he is tired of being in the hospital and is going to go home today. ADL-Treatment Pt sitting in chair. Demonstrated ability to doff/don socks without assist. Pt a ble to don bilateral shoes and tie them with set up. Pt washed face with set up. Pt sit to stand from chair without assist. Gait to door with FWW. Care transferred to PT after session. Therapy Code Descriptions/Definitions Functional [place] Measure: 0=Not Assessed/NA 4=Minimal Assistance 1=Total Assistance 5=Supervision or Setup 2=Maximal Assistance 6=Modified [place] 3=Moderate Assistance 7=Complete IndependenceSCALE: Activities may be completed with or without assistive devices. 1-Tkgnwibrbf-mxuayak completes the activity by him/herself with no assistance from a helper. 5-Set-up or Clean-up Assistance-helper sets up or cleans up; patient completes activity. [place] assists only prior to or following the activity. 4-Supervision or Touching Assistance-helper provides verbal cues and/or touching/steadying and/or contact guard assistance as patient completes activity. Assistance may be provided throughout the activity or intermittently. 3-Partial/Moderate Assistance-helper does LESS THAN HALF the effort. [place] lift s, holds or supports trunk or limbs, but provides less than half the effort. 2-Substantial/Maximal Assistance-helper does MORE THAN HALF the effort. [place] lifts or holds trunk or limbs and provides more than half the effort. 7-Kgowalbln-hyjkzh does ALL the effort. Patient does none of the effort to complete the activity. Or, the assistance of 2 or more helpers is required for the patient to complete the activity. If activity was not attempted, code reason: 7-Patient Refused. 9-Not Applicable-not attempted and the patient did not perform the activity before the current illness, exacerbation or injury. 10-Not Attempted due to Environmental Limitations-(lack of equipment, weather restraints, etc.). 88-Not Attempted due to Medical Conditions or Safety Concerns. On/Off Footwear: 5 OT Herbicide Sprayer Goals Herbicide Sprayer Goals Time Frame: Nov 25, 2019 Eating (QC): 6 Oral Hygiene (QC): 6 Toileting Hygiene (QC): 6 Shower/Bathe Self (QC): 6 Upper Body Dressing (QC): 6 Lower Body Dressing (QC): 6 On/Off Footwear (QC): 6 Additional Goals: 1-Demonstrate ADL Tasks, 2-Verbalize Understanding, 3- ImproveStrength/Jay 1=Demonstrate adherence to instructed precautions during ADL tasks. 2=Patient will verbalize/demonstrate understanding of assistive devices/modifications for ADL. 3=Patient will improve strength/tolerance for activity to enable patient to perform ADL's. OT Education/Plan Problem List/Assessment Pt would benefit from skilled OT to increase his independence in basic self care, to allow him to safely return home with family. Discharge Recommendations Plan/Recommendations: Continue POC Treatment Plan/Plan of Care Patient would benefit from OT for education, treatment and training to promote independence in ADL's, mobility, safety and/or upper extremity function for ADL's. Plan of Care: ADL Retraining, Functional Mobility, UE Funct Exercise/Act, UE Neuromus Re-Ed/Coord Treatment Duration: Nov 25, 2019 Frequency: 5 times per week Estimated Hrs Per Day: .5 hour per day Agreement: Yes Rehab Potential: Fair Time/GCodes Start Time: 10:00 Stop Time: 10:10 Total Time Billed (hr/min): 10 Billed Treatment Time 1 visit, ADL(10minutes) PAULINE BONILLA OT Nov 13, 2019 10:18
--- NOTE | 2019-11-13 10:27 | Physical Therapy Daily Note ---
PT Daily Note-Current Subjective Patient comes out of room after working with OT, ready to ambulate, no complaints of pain. Appearance Patient sitting EOB post tx with nurse call, phone, tray, all needs met. Mental Status Patient Orientation: Person, Place, Situation Transfers SCALE: Activities may be completed with or without assistive devices. 3-Bntkzdvvti-bpfyfwf completes the activity by him/herself with no assistance from a helper. 5-Set-up or Clean-up Assistance-helper sets up or cleans up; patient completes activity. [place] assists only prior to or following the activity. 4-Supervision or Touching Assistance-helper provides verbal cues and/or touching/steadying and/or contact guard assistance as patient completes activity. Assistance may be provided throughout the activity or intermittently. 3-Partial/Moderate Assistance-helper does LESS THAN HALF the effort. [place] li fts, holds or supports trunk or limbs, but provides less than half the effort. 2-Substantial/Maximal Assistance-helper does MORE THAN HALF the effort. [place] lifts or holds trunk or limbs and provides more than half the effort. 3-Fuuzirzfa-uvhrbw does ALL the effort. Patient does none of the effort to complete the activity. Or, the assistance of 2 or more helpers is required for the patient to complete the activity. If activity was not attempted, code reason: 7-Patient Refused. 9-Not Applicable-not attempted and the patient did not perform the activity before the current illness, exacerbation or injury. 10-Not Attempted due to Environmental Limitations-(lack of equipment, weather restraints, etc.). 88-Not Attempted due to Medical Conditions or Safety Concerns. Sit to Stand (QC): 4 Chair/Iay-dr-Zrfux Xfer(QC): 4 SBA Weight Bearing Right Lower Extremity: Right Weight Bearing/Tolerated Left Lower Extremity: Left Weight Bearing/Tolerated Gait Training Distance: 400' Walk 10 feet (QC): 4 Walk 50 ft with 2 Turns(QC): 4 Walk 150 ft (QC): 4 Gait Assistive Device: FWW Patient ambulates briskly, poor safety awareness, SBA with walker, tried ambulating without a walker and patient was very unsteady, he really needs a walker for safe ambulation. Treatments ambulation Assessment Current Status: Poor Progress poor safety awareness, patient is focused on leaving the hospital, seems unaware or not concerned with is health PT Inventory Coordinator Goals Senior Living Goals PT Senior Living Goals Time Frame: Nov 15, 2019 Roll Left & Right (QC): 6 Sit to Lying (QC): 6 Lying-Sitting on Side/Bed(QC): 6 Sit to Stand (QC): 6 Chair/Lyc-kh-Pnuhl Xfer(QC): 6 Toilet Transfer (QC): 6 Does the Patient Walk: Yes Walk 10 feet (QC): 6 Walk 50ft with 2 Turns (QC): 6 Walk 150 ft (QC): 6 PT Plan Problem List Problem List: Activity Tolerance, Functional Strength, Safety, Balance, Gait, Transfer Treatment/Plan Treatment Plan: Continue Plan of Care Treatment Plan: Education, Functional Activity Jay, Functional Strength, Gait, Safety, Therapeutic Exercise, Transfers Treatment Duration: Nov 15, 2019 Frequency: 5 times per week Estimated Hrs Per Day: .25 hour per day Patient and/or Family Agrees t: Yes Safety Risks/Education Patient Education: Gait Training, Transfer Techniques, Correct Positioning, Safety Issues Teaching Recipient: Patient Teaching Methods: Demonstration, Discussion Response to Teaching: Reinforcement Needed Time/GCodes Time In: 1010 Time Out: 1018 Total Billed Treatment Time: 8 Total Billed Treatment 1 visit GT 8' FAUSTINO YBARRA PT Nov 13, 2019 10:27
[2019-11-13] MEDS ORDERED: CATHETER FLUSH 10 ML SYR IV PRN (10:30)
--- NOTE | 2019-11-13 10:50 | NUR ---
PT LEAVING UNIT VIA WC ACCOMPANIED BY NUCLEAR MED STAFF FO PROCEDURE, WILL WAIT FOR PT TO RETURN.
[2019-11-13] MEDS ORDERED: REGADENOSON 0.4 MG/5 ML SYR (LEXISCAN) IV ONE (11:34)
--- NOTE | 2019-11-13 13:10 | NUR ---
PT BACK TO ROOM VIA WC ACCOMPANIED BY STAFF.
--- NOTE | 2019-11-13 13:24 | Cardiology Progress Note ---
Cardiology SOAP Progress Note Subjective: No cardiac complaints. Objective: I&O/Vital Signs Weight (Pounds): 358 Weight (Ounces): 1.0 Weight (Calculated Kilograms): 162.870732 Constitutional: appears stated age, AAO x 3; No apparent distress; well- developed, well-nourished Respiratory: chest is bilaterally symmetric, lungs clear to auscultation Cardiovascular: regular rate-rhythm, S1 and S2; No diastolic murmur, No systolic murmur Gastrointestional: soft, audible bowel sounds; No spleenomegaly Extremities: normal range of motion, non-tender, normal inspection; No clubbing, No cyanosis; no lower extremity edema bilateral; No significant edema Neurologic/Psychiatric: alert, normal mood/affect, oriented x 3 Skin: normal color, warm/dry; No rash, No ulcerations Results/Procedures: Labs Microbiology 11/10/19 MRSA Screen - Final, Complete MRSA not isolated A/P: Assessment/Dx: Acute stroke, status post thrombolytics, Positive cardiac enzymes. Smoking, DM, HTN, Hyperlipidemia, RBBB, LAFB, LVH on EKG. Plan: Acute stroke, status post thrombolytics, resolution. Will require rehabilitation. Echocardiogram shows moderate LVH with moderate diastolic dysfunction. Normal LVEF. EF is 20-25 percent. Telemetry does not show atrial fibrillation. Echocardiogram showed no intracardiac shunting. However moderate to severe LV systolic dysfunction is noted. No clear clot was seen. CT angiography shows no significant carotid disease. Eliquis or oral anticoagulation may be reasonable but will discuss with the primary team. Patient may require an implantable loop recorder for long-term surveillance for atrial fibrillation. Positive cardiac enzymes. Coronary angiography is contraindicated in an acute stroke for at least a month. I will recommend nuclear stress testing as a starting point. Likely require coronary angiography after one month of the index event. Nuclear stress testing showed likely anterior/anterior septal ischemia, low to intermediate intensity. We'll discharge him on Plavix. New diagnosis of cardiomyopathy: Unclear etiology. Will start with nuclear stress testing. Start treatment for cardiomyopathy. Coronary angiography in a month. I discuss with Dr. Hayden and will recommend Eliquis for acute stroke however there is no clear indication since we did not see LV thrombus. Dr. Pitts will discuss with the patient. There is a concern of noncompliance. Smoking, smoking cessation was strongly recommended. DM, defer to the primary team. HTN, aggressive blood pressure management. Hyperlipidemia, high-dose Lipitor therapy. RBBB, continue to follow. 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 LVH on EKG. echocardiogram shows mild to moderate LVH with diastolic dysfunction. Thank you for your consultation. Please call me if you have any questions. Monika Roque MD, FACP, FACC, FSCAI, FHRS, CCDS Interventional Cardiology Cardiac Electrophysiology Vascular Medicine and Endovascular Interventions Clinical Quality Measures Stroke: Date of last known well: November 10, 2019 Time of last known well: 01:00 Symptoms onset unknown: No Calvin ROQUE MD Nov 13, 2019 13:23
[2019-11-13] MEDS: prednisoLONE 1% OPTH (PRED FORTE) 5 ML BTL OP SCH ×3 (13:31→20:31)
[2019-11-13] MEDS: APIXABAN 5 MG (ELIQUIS) TABLET PO SCH ×2 (13:32→20:32)
[2019-11-13] MEDS: POLY/TRIMETH (POLYTRIM) OPHTH 10 ML BTL OP SCH ×3 (13:32→20:31)
[2019-11-13] MEDS: lisINopril 20 MG (PRINIVIL) TABLET PO SCH (13:32)
[2019-11-13] MEDS: meTOprolol TARTRATE 50 MG (LOPRESSOR) TAB PO SCH ×2 (13:32→20:32)
[2019-11-13] MEDS ORDERED: METO50TA15 PO (13:45)
[2019-11-13] MEDS ORDERED: APIX5TAB PO (13:45)
--- NOTE | 2019-11-13 13:56 | D/C HH Face to Face Order ---
D/C Face to Face Orders Instructions for Patient Via [facility], Patient Instructions/FollowUp: Please continue to take your medications as written. Please follow up with Dr Mitchell in the next week. Please follow up with Dr Storm as scheduled. Physician to follow Patient: Dr Mitchell Discharge Diet for Home: Cardiac Diet Patient Data-Allergies,Ht & Wt Patient Allergies: Coded Allergies: No Known Drug Allergies (Unverified , 02/26/14) Height (Feet): 5 Height (Inches): 11.00 Weight (Pounds): 358 Weight (Ounces): 1.0 Home Health Need/Face to Face Date of Face to Face: Nov 13, 2019 Clinical Findings: Generalized weakness and fatigue, Unsteady gait I have seen Pt [id number]: Yes Discharged To: Home Diagnosis/Conditions: Stroke, CVA Patient is Homebound due to: [place] fall risk due to instabilty Homebound Status Due to the above stated illness, injury or surgical procedure (medical condition or diagnosis) and associated clinical findings, the patient is homebound because of his/her inability to leave home except with aid of a supportive device and/or person AND leaving the home requires a considerable and taxing effort or is medically contraindicated. Pt req the following assistanc: Walker Home Health Nursing Orders Home Health Services Order: Nursing Services, Physical Therapy-Evaluate & Treat, Speech Language-Evaluate & Treat Home Health Infusion Therapy Line Start Date: November 10, 2019 Therapy Orders Therapy Orders: Physical Therapy, PT to assess for OT Therapy Specific Orders: Eval assistive deivces, Teach enviro modifications/safety, Gait training, Increase strength/endurance Certify Stmt I certify that this patient is under my care and that I, a nurse practitioner or a physician; a actuarial assistant working with me, had a face to face encounter that - meets the physician face to face encounter requirements with this patient as dated. LORENA HOLMAN MD Nov 13, 2019 13:50
--- NOTE | 2019-11-13 14:19 | NUR ---
CM/SS visited with the patient for social service consult. Plan: The patient will return home with home health. The patient will be transported home by his brother Onel ([phone]). Home Health: The patient was provided a Patient Preference form and chose [facility]. CM/SS spoke with Onel from the agency and made the referral. The patient will need ST, SN, and OT. DME: The patient does not need a walker due to his roommate having a spare one already. He is not willing to let this ss get him his own walker through a DME. No further interventions needed at this time.
--- NOTE | 2019-11-13 14:50 | Speech Therapy Daily Note ---
Speech Daily Progress Note Subjective Date Seen by Provider: Nov 13, 2019 Time Seen by Provider: 00:15 Patient c/o being thirsty due to being NPO for test when I entered his room. Patient states he is going home today no matter what. Objective Patient completed confrontational naming task at 60% with moderate cuing. Assessment Assessment Current Status: Fair Progress Treatment Plan Continue Plan of Care Speech Short Term Goals Short Term Goals Short Term Goals 1) Patient will complete word finding tasks at 80% with minimal cues. 2) Patient will complete expressive language tasks at 80% with minimal cues. Speech Assisted Goals Laminating Machine Operator Helper Goals Patient will improve expressive language in order to state his wants/needs with minimal cues. Speech-Plan Patient/Family Goals Patient/Family Goals: Patient states he is going home today. Treatment Plan Speech Therapy Treatment Plan: Continue Plan of Care Treatment Duration: Nov 22, 2019 Frequency: 4 times per week Estimated Hrs Per Day: .25 hour per day Rehab Potential: Fair Barriers to Learning: Patient has expressive aphasia Pt/Family Agrees to Plan: Yes Safety Risks/Education Teaching Recipient: Patient Teaching Methods: Demonstration, Discussion Response to Teaching: Verbalize Understanding, Return Demonstration Education Topics Provided: Safety within his room Time Speech Therapy Time In: 08:10 Speech Therapy Time Out: 08:25 Total Billed Time: 15 Billed Treatment Time [address] Nov 13, 2019 14:50
--- NOTE | 2019-11-13 14:58 | Discharge Summary ---
Diagnosis/Chief Complaint Date of Admission November 10, 2019 at 05:00 Date of Discharge Discharge Date: Nov 11, 2019 Admission Diagnosis Acute ischemic stroke Primary Care No,Local Physician Discharge Diagnosis (1) Acute ischemic stroke Status: Acute (2) T2DM (type 2 diabetes mellitus) Status: Chronic (3) Elevated troponin Status: Acute (4) HLD (hyperlipidemia) Status: Chronic (5) Cataract Status: Chronic (6) Lymphadenopathy Status: Acute (7) HTN (hypertension) Status: Chronic Discharge Summary Discharge Physical Exam Allergies: Coded Allergies: No Known Drug Allergies (Unverified , 02/26/14) Vitals & I&Os Vital Signs Date Time Temp Pulse Resp B/P (MAP) Pulse Ox O2 Delivery O2 Flow Rate FiO2 11/13/19 13:33 36.9 91 20 130/89 (103) 95 Room Air Hospital Course Labs (last 24 hrs) Laboratory Tests 11/12/19 16:11: Glucometer 175H 11/12/19 20:47: Glucometer 154H 11/13/19 03:20: White Blood Count 13.8H, Red Blood Count 4.34L, Hemoglobin 12.5L, Hematocrit 37L , Mean Corpuscular Volume 86, Mean Corpuscular Hemoglobin 29, Mean Corpuscular Hemoglobin Concent 34, Red Cell Distribution Width 13.8, Platelet Count 283, Mean Platelet Volume 10.5H, Sodium Level 138, Potassium Level 3.7, Chloride Level 108H, Carbon Dioxide Level 19L, Anion Gap 11, Blood Urea Nitrogen 17, Creatinine 0.74, Estimat Glomerular Filtration Rate > 60, BUN/Creatinine Ratio 23, Glucose Level 125H, Calcium Level 8.7 11/13/19 13:26: Glucometer 159H Microbiology 11/10/19 MRSA Screen - Final, Complete MRSA not isolated Patient resulted labs reviewed. Pending Labs Laboratory Tests 11/13/19 13:26: Glucometer 159 Imaging: Reviewed Imaging Report Discharge Home Medications: Active Scripts Active Metoprolol Tartrate 50 Mg Tablet 50 Mg PO BID Eliquis (Apixaban) 5 Mg Tablet 5 Mg PO BID Reported Polymyxin B-Tmp Eye Drops (Polymyxin B Sulf/Trimethoprim) 10 Ml Drops 10 Ml OP QID 30 Days Prednisolone Acetate 5 Ml Drops.susp 5 Ml OP QID 30 Days Novolog Flexpen (Insulin Aspart) 300 Units/3 Ml Solution 15 Units SQ TIDAC Metformin HCl 1,000 Mg Tablet 1,000 Mg PO BID Atorvastatin Calcium 20 Mg Tablet 20 Mg PO HS Lisinopril 20 Mg Tablet 20 Mg PO DAILY Instructions to patient/family Please see electronic discharge instructions given to patient. 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 Diabetes mellitus complication status: with other specified complication Qualified Codes: E11.69 - Type 2 diabetes mellitus with other specified complication; Z79.4 - Rodriguez g term (current) use of insulin (2) HLD (hyperlipidemia): Hyperlipidemia type: unspecified Qualified Codes: E78.5 - Hyperlipidemia, unspecified (3) Cataract: Cataract type: age-related Age-related cataract type: unspecified Laterality: unspecified laterality Qualified Codes: H25.9 - Unspecified age- related cataract (4) HTN (hypertension): Hypertension type: essential hypertension Qualified Codes: I10 - Essential (primary) hypertension LORENA HOLMAN MD Nov 13, 2019 14:58
[2019-11-13] MEDS ORDERED: CLOP75TA69 PO (20:51)
== END 2019-11-13 21:30 | disposition home health service (06) | DRG 62 ==
LOC: EDUNIT# 03:14 → ER 03:16 → ICU 05:00 → CSD 11-11 11:28
PROVIDERS: ADMIT Internal Medicine; ATTEND Internal Medicine
DX: I63.9 Cerebral infarction, unspecified (principal); G81.91 Hemiplegia, unspecified affecting right dominant side; I42.9 Cardiomyopathy, unspecified; R47.01 Aphasia; R47.81 Slurred speech; E11.9 Type 2 diabetes mellitus without complications; E78.5 Hyperlipidemia, unspecified; I11.9 Hypertensive heart disease without heart failure; E87.6 Hypokalemia; R59.0 Localized enlarged lymph nodes; R79.89 Other specified abnormal findings of blood chemistry; F17.210 Nicotine dependence, cigarettes, uncomplicated; M10.9 Gout, unspecified; G47.30 Sleep apnea, unspecified; R29.706 NIHSS score 6; I45.10 Unspecified right bundle-branch block; I44.4 Left anterior fascicular block; I08.1 Rheumatic disorders of both mitral and tricuspid valves; Z79.4 Long term (current) use of insulin
CPT/HCPCS: 36415; 51702; 70450; 70496; 70498; 70553; 71045; 78452; 80048; 80053; 80061; 81000; 82962; 83735; 84100; 84484; 85025; 85027; 85379; 85610; 85730; 87081; 92977; 93005; 93017; 93041; 93306; 96361; 96365

== ENCOUNTER 2019-11-30 10:40 | Emergency (ER) | payer MEDICAID ==
[~2019-11-30] VITALS: Ht 180.3 cm; Wt 108.8 kg
[~2019-11-30 10:40] MED LIST changes: +APIX5TAB PO; +CLOP75TA69 PO; +METO50TA15 PO; +PLTR10OP OP; +PRED5DRO17 OP
[2019-11-30 11:32] LABS: BASOPHILS # (AUTO) 0.1 10^3/uL (0.0-0.1); BASOPHILS % (AUTO) 1 % (0-10); EOSINOPHILS # (AUTO) 0.2 10^3/uL (0.0-0.3); EOSINOPHILS % (AUTO) 2 % (0-10); HEMATOCRIT 41 % (40-54); HEMOGLOBIN 12.5 G/DL (13.3-17.7); LYMPHOCYTES # (AUTO) 1.7 X 10^3 (1.0-4.0); LYMPHOCYTES % (AUTO) 15 % (12-44); MEAN CORPUSCULAR HEMOGLOBIN 28 PG (25-34); MEAN CORPUSCULAR HGB CONC 31 G/DL (32-36); MEAN CORPUSCULAR VOLUME 91 FL (80-99); MEAN PLATELET VOLUME 11.3 FL (7.4-10.4); MONOCYTES # (AUTO) 0.7 X 10^3 (0.0-1.0); MONOCYTES % (AUTO) 7 % (0-12); NEUTROPHILS # (AUTO) 8.4 X 10^3 (1.8-7.8); NEUTROPHILS % (AUTO) 76 % (42-75); PLATELET COUNT 329 10^3/uL (130-400); RED CELL DISTRIBUTION WIDTH 15.6 % (10.0-14.5); WHITE BLOOD COUNT 11.1 10^3/uL (4.3-11.0)
--- NOTE | 2019-11-30 11:40 | ED GI ---
General Chief Complaint: Abdominal/GI Problems Stated Complaint: IRREGULAR HEART RATE Nursing Triage Note: [facility] with complaint of abd fullness. per ems, pt was in the 80s on room air and diminished lung sounds. pt was in hospital recently for stroke. per pt, he feels "full" in his lower abd. Sepsis Screen: No Definite Risk Source of Information: Patient, EMS ([facility]) Exam Limitations: No Limitations History of Present Illness Date Seen by Provider: Nov 30, 2019 Time Seen by Provider: 11:15 Initial Comments Patient presents to ER by EMS from home with chief complaint that ever since his discharge home after having a stroke he has felt worsening shortness of breath and abdominal distention. He is not having any chest pain. No palpitations. He says is been taking medications as prescribed. He follows with Dr. Henning and Dr. Storm. He is on a blood thinner. He is not sure what meds he takes. He is supposed to be wearing a life vest but after the first few days he cannot tolerate it. He denies orthopnea. He says the swelling in his legs is chronic however it may be a little worse than usual. No syncope, fever, cough. He is c urrently working on smoking cessation. He has not taken his morning meds this morning. Echocardiogram from 11/11/[address] Storm shows EF of 20-25% grade 2 diastolic dysfunction. Allergies and Home Medications Allergies Coded Allergies: No Known Drug Allergies (Unverified , 02/26/14) Home Medications Apixaban 5 Mg Tablet, 5 MG PO BID Prescribed by: LORENA HOLMAN on 11/13/19 1345 Atorvastatin Calcium 20 Mg Tablet, 20 MG PO HS, (Reported) Clopidogrel Bisulfate 75 Mg Tablet, 75 MG PO DAILY Prescribed by: DINESH BELL on 11/13/192050 Insulin Aspart 300 Units/3 Ml Solution, 15 UNITS SQ TIDAC, (Reported) Lisinopril 20 Mg Tablet, 20 MG PO DAILY, (Reported) Metformin HCl 1,000 Mg Tablet, 1,000 MG PO BID, (Reported) Metoprolol Tartrate 50 Mg Tablet, 50 MG PO BID Prescribed by: LORENA HOLMAN on 11/13/19 1345 Polymyxin B Sulf/Trimethoprim 10 Ml Drops, 10 ML OP QID, (Reported) Prednisolone Acetate 5 Ml Drops.susp, 5 ML OP QID, (Reported) Patient Home Medication List Home Medication List Reviewed: Yes Review of Systems Review of Systems Constitutional: No chills, No diaphoresis EENTM: No Blurred Vision, No Double Vision Respiratory: Denies Cough, Denies Orthopnea; Shortness of Air, SOA With Exertion Cardiovascular: Denies Chest Pain; Edema; Denies Irregular Heart Rate, Denies Lightheadedness Gastrointestinal: Abdomen Distended; Denies Abdominal Pain, Denies Constipated, Denies Diarrhea, Denies Nausea Genitourinary: Denies Burning, Denies Discharge Musculoskeletal: No back pain, No joint pain All Other Systems Reviewed Negative Unless Noted: Yes Past Wyvghrq-Ybcatp-Ntpnto Hx Patient Social History Alcohol Use: Denies Use Recreational Drug Use: No Smoking Status: Current Everyday Smoker Type Used: Cigarettes Recent Foreign Travel: No Contact w/Someone Who Travel: No Recent Infectious Disease Expo: No Recent Hopitalizations: No Immunizations Up To Date Tetanus Booster (TDap): Unknown Seasonal Allergies Seasonal Allergies: No Past Medical History Surgeries: No Respiratory: No Sleep Apnea Cardiac: Yes High Cholesterol, Hypertension Neurological: Yes Stroke, TIA Reproductive Disorders: No Sexually Transmitted Disease: No HIV/AIDS: No Genitourinary: No Gastrointestinal: No Musculoskeletal: Yes Gout Endocrine: Yes (TYPE 2 DM) Diabetes, Insulin dep Loss of Vision: Denies Hearing Impairment: Denies Cancer: No Psychosocial: No Integumentary: No Blood Disorders: No Adverse Reaction/Blood Tranf: No Family Medical History Coronary thrombosis 19 FATHER Diabetes mellitus G8 BROTHER FH: lung cancer 19 MOTHER (MOTHER FROM LUNG [place]) Hypercholesterolemia 19 FATHER Myocardial infarction 19 FATHER ( FROM [place]) Physical Exam Vital Signs Vital Signs - First Documented 11/30/19 10:40 Temp 36.7 Pulse 121 Resp 23 B/P (MAP) 131/91 (104) Pulse Ox 96 O2 Delivery Room Air Capillary Refill : Less Than 3 Seconds Height/Weight/BMI Height: 5'11.00" Weight: 358lbs. 1.0oz. [id number]; 33.00 BMI Method: General Appearance: no apparent distress, other (chronicly ill) HEENT: PERRL/EOMI, normal ENT inspection Neck: non-tender, full range of motion, supple, normal inspection Respiratory: lungs clear, normal breath sounds, no respiratory distress (Oxygen saturation 98% room air), no accessory muscle use Cardiovascular: tachycardia, irregularly irregular, other (1+ pitting edema bilateral lower extremities up to the calves) Gastrointestinal: normal bowel sounds, non tender, soft, distended, other (faint edema) Extremities: normal range of motion, normal capillary refill Neurologic/Psychiatric: alert, normal mood/affect, oriented x 3 Progress/Results/Core Measures Results/Orders Lab Results Laboratory Tests Test 11/30/19 10:54 11/30/19 11:07 Range/Units White Blood Count 11.1 H 4.3-11.0 10^3/uL Red Blood Count 4.50 4.35-5.85 10^6/uL Hemoglobin 12.5 L 13.3-17.7 G/DL Hematocrit 41 40-54 % Mean Corpuscular Volume 91 80-99 FL Mean Corpuscular Hemoglobin 28 25-34 PG Mean Corpuscular Hemoglobin Concent 31 L 32-36 G/DL Red Cell Distribution Width 15.6 H 10.0-14.5 % Platelet Count 329 130-400 10^3/uL Mean Platelet Volume 11.3 H 7.4-10.4 FL Neutrophils (%) (Auto) 76 H 42-75 % Lymphocytes (%) (Auto) 15 12-44 % Monocytes (%) (Auto) 7 0-12 % Eosinophils (%) (Auto) 2 0-10 % Basophils (%) (Auto) 1 0-10 % Neutrophils # (Auto) 8.4 H 1.8-7.8 X 10^3 Lymphocytes # (Auto) 1.7 1.0-4.0 X 10^3 Monocytes # (Auto) 0.7 0.0-1.0 X 10^3 Eosinophils # (Auto) 0.2 0.0-0.3 10^3/uL Basophils # (Auto) 0.1 0.0-0.1 10^3/uL Prothrombin Time 15.1 H 12.2-14.7 SEC INR Comment 1.2 0.8-1.4 Activated Partial Thromboplast Time 20 L 24-35 SEC Sodium Level 142 135-145 MMOL/L Potassium Level 4.4 3.6-5.0 MMOL/L Chloride Level 109 H 98-107 MMOL/L Carbon Dioxide Level 23 21-32 MMOL/L Anion Gap 10 5-14 MMOL/L Blood Urea Nitrogen 24 H 7-18 MG/DL Creatinine 0.85 0.60-1.30 MG/DL Estimat Glomerular Filtration Rate > 60 BUN/Creatinine Ratio 28 Glucose Level 152 H 70-105 MG/DL Calcium Level 8.6 8.5-10.1 MG/DL Corrected Calcium 9.0 8.5-10.1 MG/DL Total Bilirubin 0.5 0.1-1.0 MG/DL Aspartate Amino Transf (AST/SGOT) 12 5-34 U/L Alanine Aminotransferase (ALT/SGPT) 23 0-55 U/L Alkaline Phosphatase 72 40-136 U/L Troponin I 0.042 H <0.028 NG/ML B-Type Natriuretic Peptide 1473.5 H <100.0 PG/ML Total Protein 6.4 6.4-8.2 GM/DL Albumin 3.5 3.2-4.5 GM/DL Urine Color BLAKE H Urine Clarity CLEAR Urine pH 5.5 5-9 Urine Specific [place] >=1.030 1.016-1.022 Urine Protein 1+ H NEGATIVE Urine Glucose (UA) NEGATIVE NEGATIVE Urine Ketones NEGATIVE NEGATIVE Urine Nitrite NEGATIVE NEGATIVE Urine Bilirubin NEGATIVE NEGATIVE Urine Urobilinogen 1.0 < = 1.0 MG/DL Urine Leukocyte Esterase NEGATIVE NEGATIVE Urine RBC (Auto) NEGATIVE NEGATIVE Urine RBC NONE /HPF Urine WBC NONE /HPF Urine Squamous Epithelial Cells NONE /HPF Urine Crystals NONE /LPF Urine Bacteria NEGATIVE /HPF Urine Casts NONE /LPF Urine Mucus MODERATE H /LPF Urine Culture Indicated NO My Orders Orders - VUDRAGAN J Ekg Tracing (11/30/19 11:25) Continuous Ekg Monitoring (11/30/19 11:25) Cbc With Automated Diff (11/30/19 11:25) Comprehensive Metabolic Panel (11/30/19 11:25) Troponin I (11/30/19 11:25) BNP (11/30/19 11:33) Chest 1 View, Ap/Pa Only (11/30/19 11:33) Ua Culture If Indicated (11/30/19 11:33) Protime With Inr (11/30/19 11:33) Partial Thromboplastin Time (11/30/19 11:33) Metoprolol Tartrate (Ir) Tab (Lopressor (11/30/19 11:45) Metoprolol Tartrate Injection (Lopressor (11/30/19 11:45) Apixaban Tablet (Eliquis Tablet) (11/30/19 11:45) Medications Given in ED Current Medications Medications Dose Ordered Sig/Hailey Route Start Time Stop Time Status Last Admin Dose Admin Apixaban 5 mg ONCE ONCE PO 11/30/19 11:45 11/30/19 11:46 DC 11/30/19 12:33 5 MG Metoprolol Tartrate 5 mg ONCE ONCE IV 11/30/19 11:45 11/30/19 11:46 DC 11/30/19 12:18 5 MG Metoprolol Tartrate 50 mg ONCE ONCE PO 11/30/19 11:45 11/30/19 11:46 DC 11/30/19 12:33 50 MG Vital Signs/I&O 11/30/19 10:40 Temp 36.7 Pulse 121 Resp 23 B/P (MAP) 131/91 (104) Pulse Ox 96 O2 Delivery Room Air Blood Pressure Mean: 104 Progress Progress Note #1: Time: 11:39 Progress Note Suspect fluid overload secondary to heart failure secondary to atrial fibrillation with rapid ventricular response. Plan to obtain labs, chest x-ray. EKG shows 2-1 atrial flutter. Patient's on a beta cathleen but not calcium channel blockers. We'll trial 5 mg IV metoprolol see if we can get rate control. Progress Note #2: Time: 13:03 Progress Note Patient has no anginal symptoms. He says he feels good other than his belly distention of the abdomen. He is not on diuretics. I suspect his elevated BNP. All vital have someone to compare to and we would start him on Lasix 40 twice a day and have him follow-up Monday or Monday with Dr. Storm. We are going to give him 40 mg of Lasix now and allow him to pick someone up at the pharmacy. We discussed this case with Dr. Burgess and he agrees with the marginally elevated troponin with no anginal symptoms is likely related to his mild heart failure. His atrial fibrillation is now rate controlled in the 80s with just homehe has been prescribed. Given him a dose of Eliquis and encourage him to continue taking his medications. Start him on Lasix 40 twice a day. Initial ECG Impression Date: Nov 30, 2019 Initial ECG Impression Time: 11:40 Initial ECG Rate: 120 Initial ECG Rhythm: A Fib/Flutter Initial ECG Intervals: QT (515) Initial ECG Impression: Atrial Fibrillation w/RVR Initial ECG Comparisson: Changed Comment Atrial flutter with rapid ventricular response 2-1 AV block. Atypical right bundle-branch block without evidence of clinically relevant ST changes. Diagnostic Imaging Diagonstic Imaging: Xray Plain Films/CT/US/NM/MRI: chest Reviewed: Reviewed by Me Departure Impression Primary Impression: Worsening body fluid retention Additional Impressions: CHF exacerbation Qualified Codes: I50.43 - Acute on chronic combined systolic (congestive) and diastolic (congestive) heart failure Chronic atrial fibrillation with rapid ventricular response Disposition: HOME, SELF-CARE Condition: Improved Departure-Patient Inst. Decision time for Depature: 13:08 Referrals: AC MERCER MD, M RIZWAN MD NO,LOCAL PHYSICIAN (PCP) Primary Care Physician Patient Instructions: Atrial Fibrillation, Heart Failure With Reduced Ejection Fraction Add. Discharge Instructions: The swelling around your middle and in your legs is resultant from fluids backing up because urine heart failure. Your heart was also in a rapid rate which further contributed to fluids backing up. It's important that you take your medications to help control your heart rate. We are going to Start you on a medicine called Lasix 40 mg twice a day. Take it in the morning and again in the early afternoon at least 6 hours after first dose. While you are on Lasix we will also need to take potassium which is a supplement and gets wasted with all of the urination. Lasix is a water pill but will cause you to urinate frequently for about 6 hours to help get rid of your excess fluid and give your heart a rest. If you have worsening swelling, chest pain or shortness of breath then please immediately return to the ER. Plan to follow up with Dr. Storm, cardiology by calling for an appointment on Monday. Try to get in early next week if possible. You should follow-up with your primary care doctor to help manage your medications. All discharge instructions reviewed with patient and/or family. Voiced understanding. Scripts Potassium Chloride (Potassium Chloride) 20 Meq Tablet.er 20 MEQ PO BID for 14 Days, #28 TAB 0 Refills Prov: DRAGAN WOMACK 11/30/19 Furosemide (Lasix) 40 Mg Tablet 40 MG PO BID for 7 Days, #14 TAB 0 Refills Prov: DRAGAN WOMACK 11/30/19 Copy Copies To 1: Calvin STORM MD, TITUS J Nov 30, 2019 11:40
[2019-11-30 11:41] LABS: BILIRUBIN,URINE NEGATIVE (NEGATIVE); CLARITY,URINE CLEAR; COLOR,URINE AMBER; GLUCOSE, URINE (UA) NEGATIVE (NEGATIVE); KETONES,URINE NEGATIVE (NEGATIVE); LEUKOCYTE ESTERASE ,URINE NEGATIVE (NEGATIVE); NITRITE,URINE NEGATIVE (NEGATIVE); PH,URINE 5.5 (5-9); PROTEIN,URINE 1+ (NEGATIVE)
[2019-11-30 11:45] LABS: ALANINE AMINOTRANSFERASE 23 U/L (0-55); ALBUMIN 3.5 GM/DL (3.2-4.5); ALKALINE PHOSPHATASE 72 U/L (40-136); BILIRUBIN,TOTAL 0.5 MG/DL (0.1-1.0); BUN/CREATININE RATIO 28; CALCIUM 8.6 MG/DL (8.5-10.1); CARBON DIOXIDE 23 MMOL/L (21-32); CHLORIDE 109 MMOL/L (98-107); CREATININE SERUM 0.85 MG/DL (0.60-1.30); GFR ESTIMATED > 60; GLUCOSE 152 MG/DL (70-105); POTASSIUM 4.4 MMOL/L (3.6-5.0); SODIUM 142 MMOL/L (135-145); TOTAL PROTEIN 6.4 GM/DL (6.4-8.2)
[2019-11-30] MEDS ORDERED: meTOprolol TARTRATE 50 MG (LOPRESSOR) TAB PO ONE (11:45)
[2019-11-30] MEDS ORDERED: APIXABAN 5 MG (ELIQUIS) TABLET PO ONE (11:45)
[2019-11-30] MEDS ORDERED: meTOprolol 5 MG/5 ML (LOPRESSOR) VIAL IV ONE (11:45)
[2019-11-30 11:46] LABS: INR 1.2 (0.8-1.4); PROTHROMBIN TIME PATIENT 15.1 SEC (12.2-14.7)
[2019-11-30 11:50] LABS: BACTERIA,URINE NEGATIVE /HPF
--- NOTE | 2019-11-30 12:51 | Diagnostic Imaging Report ---
HISTORY: Chest pain TECHNIQUE: Frontal view chest COMPARISON: 11/12/2019 FINDINGS: There is a small right pleural effusion. There are bibasilar airspace opacities. The cardiac silhouette is stable in size. There is mild central vascular congestion. No pneumothorax is seen. IMPRESSION: 1. Small right pleural effusion. 2. Bibasilar airspace opacities, may represent edema or atelectasis. 3. Mild central vascular congestion. Dictated by: Dictated on workstation # [id number]
[2019-11-30] MEDS ORDERED: FURO-124 PO (13:14)
[2019-11-30] MEDS ORDERED: POTA-51 PO (13:14)
[2019-11-30 13:28] VITALS: BP 144/104
== END 2019-11-30 13:28 | disposition home or self-care (01) ==
LOC: EDUNIT# 10:40 → ER 10:42
DX: I11.0 Hypertensive heart disease with heart failure (principal); I50.9 Heart failure, unspecified; I48.20 Chronic atrial fibrillation, unspecified; E11.9 Type 2 diabetes mellitus without complications; E78.00 Pure hypercholesterolemia, unspecified; F17.210 Nicotine dependence, cigarettes, uncomplicated; Z86.73 Personal history of transient ischemic attack (TIA), and cerebral infarction without residual deficits; Z91.14 Patient's other noncompliance with medication regimen; Z79.01 Long term (current) use of anticoagulants; Z79.02 Long term (current) use of antithrombotics/antiplatelets; Z79.52 Long term (current) use of systemic steroids; Z79.4 Long term (current) use of insulin; Z80.1 Family history of malignant neoplasm of trachea, bronchus and lung; Z82.49 Family history of ischemic heart disease and other diseases of the circulatory system
CPT/HCPCS: 36415; 71045; 80053; 81000; 83880; 84484; 85025; 85610; 85730; 93005

== ENCOUNTER 2019-12-06 01:22 | Inpatient (IN) | payer MEDICAID ==
[2019-12-06] VITALS (23 sets, daily range): BP systolic 103–137; BP diastolic 56–121
[~2019-12-06] VITALS: Ht 180 cm; Wt 131.6 kg
[~2019-12-06 01:22] MED LIST changes: +FURO-124 PO; +POTA-51 PO
[2019-12-06] MEDS ORDERED: CEFEPIME INJECTION 1,000 MG in WATER (STERILE) FOR INJECTION 10 ML IV ONE (01:45)
[2019-12-06] MEDS ORDERED: VANCOMYCIN INJECTION 1,000 MG in NS (IVPB) 250 ML IV SCH (01:45)
[2019-12-06] MEDS ORDERED: NS IV 1000 ML 1,000 ML IV SCH ×2 (01:45)
[2019-12-06] MEDS ORDERED: LIDOCAINE UROJET 2% GEL 10 ML PKG TOP ONE (01:45)
--- NOTE | 2019-12-06 01:53 | ED GU-Male ---
General Chief Complaint: Abdominal/GI Problems Stated Complaint: SWOLLEN TESTICALS Nursing Triage Note: PT SEEN X2 WEEKS AGO FOR STROKE SX. NOW PRESENTS WITH TESTICULAR EDEMA. NO URINARY SX NOTED BY PT. DENIES PAIN. Source: patient Exam Limitations: no limitations History of Present Illness Date Seen by Provider: Dec 06, 2019 Time Seen by Provider: 01:35 Initial Comments Patient presents ER by private conveyance from home with chief complaint of swelling of his penis and scrotum he just noticed last night while doing some fishing. He does not have any fevers or chills. He says he had a beer to drink. He recently had a stroke. He does not have any dysuria or discharge but he has not urinated since yesterday morning. He denies any nausea or headache cough shortness of air or chest pain. History of hypertension, hyperlipidemia, type 2 diabetes and stroke status post TPA November 10, 2019. Tobaccoism. Patient was post to follow-up with Dr. Storm outpatient for loop recorder. He is also to wear a life vest for his poor heart function however he says he does not feel comfortable wearing so he doesn't wear after the second day being home. Echocardiogram from 11/11/[address] Storm shows EF of 20-25% grade 2 diastolic dysfunction. Allergies and Home Medications Allergies Coded Allergies: No Known Drug Allergies (Unverified , 02/26/14) Home Medications Apixaban 5 Mg Tablet, 5 MG PO BID Prescribed by: LORENA HOLMAN on 11/13/19 1345 Atorvastatin Calcium 20 Mg Tablet, 20 MG PO HS, (Reported) Clopidogrel Bisulfate 75 Mg Tablet, 75 MG PO DAILY Prescribed by: DINESH BELL on 11/13/192050 Furosemide 40 Mg Tablet, 40 MG PO BID Prescribed by: DRAGAN WOMACK on 11/30/19 1314 Insulin Aspart 300 Units/3 Ml Solution, 15 UNITS SQ TIDAC, (Reported) Lisinopril 20 Mg Tablet, 20 MG PO DAILY, (Reported) Metformin HCl 1,000 Mg Tablet, 1,000 MG PO BID, (Reported) Metoprolol Tartrate 50 Mg Tablet, 50 MG PO BID Prescribed by: LORENA HOLMAN on 11/13/19 1345 Polymyxin B Sulf/Trimethoprim 10 Ml Drops, 10 ML OP QID, (Reported) Potassium Chloride 20 Meq Tablet.er, 20 MEQ PO BID Prescribed by: DRAGAN WOMACK on 11/30/19 1314 Prednisolone Acetate 5 Ml Drops.susp, 5 ML OP QID, (Reported) Patient Home Medication List Home Medication List Reviewed: Yes Review of Systems Review of Systems Constitutional: No chills, No diaphoresis EENTM: No ear discharge, No ear pain Respiratory: No cough, No short of breath Cardiovascular: No chest pain, No palpitations Gastrointestinal: No abdominal pain, No constipation, No diarrhea, No nausea, No vomiting Genitourinary: pain, other (swelling of the penis and scrotum.) Musculoskeletal: No back pain, No joint pain Skin: No lesions, No lumps All Other Systemes Reviewed Negative Unless Noted: Yes Past Tofapwl-Gzzabt-Cvtuzy Hx Patient Social History Alcohol Use: Regular Use Number of Drinks Today: 1 Alcohol Beverage of Choice: Beer Recreational Drug Use: No Type Used: Cigarettes Recent Foreign Travel: No Contact w/Someone Who Travel: No Recent Infectious Disease Expo: No Recent Hopitalizations: No Physical Abuse: No Sexual Abuse: No Mistreated: No Fear: No Immunizations Up To Date Tetanus Booster (TDap): Unknown Seasonal Allergies Seasonal Allergies: No Past Medical History Surgeries: No Respiratory: No Sleep Apnea Cardiac: Yes High Cholesterol, Hypertension Neurological: Yes Stroke, TIA Reproductive Disorders: No Sexually Transmitted Disease: No HIV/AIDS: No Genitourinary: No Gastrointestinal: No Musculoskeletal: Yes Gout Endocrine: Yes (TYPE 2 DM) Diabetes, Insulin dep Loss of Vision: Denies Hearing Impairment: Denies Cancer: No Psychosocial: No Integumentary: No Blood Disorders: No Adverse Reaction/Blood Tranf: No Family Medical History Coronary thrombosis 19 FATHER Diabetes mellitus G8 BROTHER FH: lung cancer 19 MOTHER (MOTHER FROM LUNG [place]) Hypercholesterolemia 19 FATHER Myocardial infarction 19 FATHER ( FROM [place]) Physical Exam Vital Signs Vital Signs - First Documented 12/06/19 01:38 Temp 36.5 Pulse 133 Resp 18 B/P (MAP) 97/70 (79) Pulse Ox 98 O2 Delivery Room Air Capillary Refill : Less Than 3 Seconds Height, Weight, BMI Height: 5'11.00" Weight: 358lbs. 1.0oz. 162.907505xp; 37.00 BMI Method: General Appearance: moderate distress, other (slurring speech) HEENT: PERRL/EOMI, normal ENT inspection, pharynx normal Neck: full range of motion, normal inspection Cardiovascular: normal peripheral pulses, regular rate, rhythm, tachycardia Respiratory: lungs clear, normal breath sounds, no respiratory distress, no accessory muscle use Gastrointestinal: normal bowel sounds, non tender, soft, no organomegaly Male: erythema, other (swollen erythematous scrotum and penis with caseous white mattering at the urethral meatus) Neurologic/Psychiatric: alert, normal mood/affect, oriented x 3 Skin: normal color, warm/dry Focused Exam Sepsis Stage: Sepsis Possible Source: Skin/Soft Tissue Lactate Level 12/06/19 01:49: Lactic Acid Level 2.14*H Time of Focused Exam: 02:40 Respiratory: Lungs Clear, Normal Breath Sounds, No Accessory Muscle Use, No Respiratory Distress Cardiovascular: Regular Rate, Rhythm, No Edema, Normal Peripheral Pulses Lactic Acid Level Laboratory Tests Test 12/06/19 01:49 Lactic Acid Level 2.14 MMOL/L (0.50-2.00) *H Progress/Results/Core Measures Suspected Sepsis Recent Fever Within 48 Hours: No Infection Criteria Present: None New/Unexplained Altered Menta: No Sepsis Screen: No Definite Risk SIRS Temperature: Pulse: 133 Respiratory Rate: 18 Laboratory Tests 12/06/19 01:49: White Blood Count 9.2 Blood Pressure 97 /70 Mean: 79 12/06/19 01:49: Lactic Acid Level 2.14*H Laboratory Tests 12/06/19 01:49: Creatinine 1.22, INR Comment 1.2, Platelet Count 283, Total Bilirubin 0.3 Results/Orders Lab Results Laboratory Tests Test 12/06/19 01:49 12/06/19 01:50 Range/Units White Blood Count 9.2 4.3-11.0 10^3/uL Red Blood Count 4.18 L 4.35-5.85 10^6/uL Hemoglobin 11.9 L 13.3-17.7 G/DL Hematocrit 38 L 40-54 % Mean Corpuscular Volume 90 80-99 FL Mean Corpuscular Hemoglobin 29 25-34 PG Mean Corpuscular Hemoglobin Concent 32 32-36 G/DL Red Cell Distribution Width 15.6 H 10.0-14.5 % Platelet Count 283 130-400 10^3/uL Mean Platelet Volume 10.6 H 7.4-10.4 FL Neutrophils (%) (Auto) 69 42-75 % Lymphocytes (%) (Auto) 20 12-44 % Monocytes (%) (Auto) 8 0-12 % Eosinophils (%) (Auto) 2 0-10 % Basophils (%) (Auto) 1 0-10 % Neutrophils # (Auto) 6.4 1.8-7.8 X 10^3 Lymphocytes # (Auto) 1.8 1.0-4.0 X 10^3 Monocytes # (Auto) 0.8 0.0-1.0 X 10^3 Eosinophils # (Auto) 0.2 0.0-0.3 10^3/uL Basophils # (Auto) 0.1 0.0-0.1 10^3/uL Prothrombin Time 15.4 H 12.2-14.7 SEC INR Comment 1.2 0.8-1.4 Activated Partial Thromboplast Time 30 24-35 SEC Sodium Level 143 135-145 MMOL/L Potassium Level 4.2 3.6-5.0 MMOL/L Chloride Level 107 98-107 MMOL/L Carbon Dioxide Level 23 21-32 MMOL/L Anion Gap 13 5-14 MMOL/L Blood Urea Nitrogen 30 H 7-18 MG/DL Creatinine 1.22 0.60-1.30 MG/DL Estimat Glomerular Filtration Rate > 60 BUN/Creatinine Ratio 25 Glucose Level 156 H 70-105 MG/DL Lactic Acid Level 2.14 *H 0.50-2.00 MMOL/L Calcium Level 9.0 8.5-10.1 MG/DL Corrected Calcium 9.2 8.5-10.1 MG/DL Total Bilirubin 0.3 0.1-1.0 MG/DL Aspartate Amino Transf (AST/SGOT) 12 5-34 U/L Alanine Aminotransferase (ALT/SGPT) 14 0-55 U/L Alkaline Phosphatase 56 40-136 U/L Ammonia 35 H 11-32 UMOL/L B-Type Natriuretic Peptide 772.8 H <100.0 PG/ML Total Protein 6.3 L 6.4-8.2 GM/DL Albumin 3.7 3.2-4.5 GM/DL Serum Alcohol < 10 <10 MG/DL Urine Color YELLOW Urine Clarity CLEAR Urine pH 5.5 5-9 Urine Specific [place] >=1.030 1.016-1.022 Urine Protein TRACE H NEGATIVE Urine Glucose (UA) NEGATIVE NEGATIVE Urine Ketones NEGATIVE NEGATIVE Urine Nitrite NEGATIVE NEGATIVE Urine Bilirubin NEGATIVE NEGATIVE Urine Urobilinogen 0.2 < = 1.0 MG/DL Urine Leukocyte Esterase NEGATIVE NEGATIVE Urine RBC (Auto) NEGATIVE NEGATIVE Urine RBC NONE /HPF Urine WBC NONE /HPF Urine Squamous Epithelial Cells RARE /HPF Urine Crystals PRESENT H /LPF Urine Amorphous Sediment FEW SAUNDRA URATES H /LPF Urine Bacteria TRACE /HPF Urine Casts PRESENT /LPF Urine Hyaline Casts RARE /LPF Urine Mucus SMALL H /LPF Urine Culture Indicated CULTURE PENDING Urine Opiates Screen NEGATIVE NEGATIVE Urine Oxycodone Screen NEGATIVE NEGATIVE Urine Methadone Screen NEGATIVE NEGATIVE Urine Propoxyphene Screen NEGATIVE NEGATIVE Urine Barbiturates Screen NEGATIVE NEGATIVE Ur Tricyclic Antidepressants Screen NEGATIVE NEGATIVE Urine Phencyclidine Screen NEGATIVE NEGATIVE Urine Amphetamines Screen POSITIVE H NEGATIVE Urine Methamphetamines Screen POSITIVE H NEGATIVE Urine Benzodiazepines Screen NEGATIVE NEGATIVE Urine Cocaine Screen NEGATIVE NEGATIVE Urine Cannabinoids Screen POSITIVE H NEGATIVE My Orders Orders - VU,DRAGAN J Cbc With Automated Diff (12/06/19 01:45) Comprehensive Metabolic Panel (12/06/19:45) Blood Culture (12/06/19 01:45) Sputum Culture (12/06/19:45) Urinalysis (12/06/19:45) Urine Culture (12/06/19:45) Protime With Inr (12/06/19:45) Partial Thromboplastin Time (12/06/19:45) Chest 1 View, Ap/Pa Only (12/06/19 01:45) Ed Iv/Invasive Line Start (12/06/19 01:45) Ed Iv/Invasive Line Start (12/06/19 01:45) Vital Signs Adult Sepsis Patie Q15M (12/06/19 01:45) O2 (12/06/19:45) Remove Rings In Anticipation O (12/06/19:45) Lactic Acid Analyzer (12/06/19:45) Ns Iv 1000 Ml (Sodium Chloride 0.9%) (12/06/19 01:45) Cefepime Injection (Maxipime Injection) (12/06/19 01:45) Vancomycin Injection (Vancomycin Injecti (12/06/19 01:45) Ed Iv/Invasive Line Start (12/06/19 01:45) Ns Iv 1000 Ml (Sodium Chloride 0.9%) (12/06/19 01:45) BNP (12/06/19 01:45) Ammonia (12/06/19 01:45) Alcohol (12/06/19 01:45) Drug Screen Stat (Urine) (12/06/19 01:45) Catheter(Urinary) Insert & Ass 03,15 (12/06/19 01:45) Lidocaine 2% (Urojet) (Xylocaine Urojet) (12/06/19 01:45) Fentanyl Injection (Sublimaze Injection (12/06/19 02:30) Medications Given in ED Current Medications Medications Dose Ordered Sig/Hailey Route Start Time Stop Time Status Last Admin Dose Admin Cefepime HCl 1000 mg/Sterile Water 10 ml @ 200 mls/hr ONCE ONCE IV 12/06/19 01:45 12/06/19 01:49 DC 12/06/19 02:08 200 MLS/HR Vital Signs/I&O 12/06/19 12/06/19 12/06/19 01:38 02:08 02:37 Temp 36.5 Pulse 133 122 Resp 18 18 B/P (MAP) 97/70 (79) 98/66 Pulse Ox 98 98 99 O2 Delivery Room Air Room Air Room Air Capillary Refill : Less Than 3 Seconds Blood Pressure Mean: 79 Progress Note #1: Time: 01:58 Progress Note Cellulitis, cystitis, prostatitis, urethritis? Plan to drop a Reddy catheter because he is having urinary retention. 50 g of fentanyl, 2 L of saline would be greater than 20 mL/kg based on an adjusted ideal body weight of 93 kg. Cefepime and vancomycin. He is septic because he has tachycardia and evidence of UTI or cellulitis and soft blood pressure in the 90 systolic. The patient's acting a little out of it and slurring his speech which could be left over from his stroke symptoms, delirium or intoxication. We'll check an alcohol level and drug screen. Ammonia level. No known history of hepatic failure or hepatitis. Progress Note #2: Time: 02:31 Progress Note 200 cc of urine out. Lactate elevated. Suspect that his presentation could be related to methamphetamines however cellulitis and sepsis is still a possibility so we'll continue cefepime, vancomycin inpatient. BNP 700 which is less than 1400 6 days ago in the ER. Patient's blood pressure is okay 105 systolic with a map of 89. 0251: First liter is in second liter is going blood pressure 114/69. Diagnostic Imaging Diagonstic Imaging: Xray Plain Films/CT/US/NM/MRI: chest (1v) Comments Unchanged from previous. Mild congestion pulmonary vasculature. Reviewed: Reviewed by Me Departure Communication (Admissions) Time/Spoke to Admitting Phy: 02:35 Discussed the case with Dr. Dorado as well as the soft blood pressure and he was still receiving his IV fluid bolus. We'll put him in cardiac stepdown and she agrees with the antibiotics and plan. Impression Primary Impression: Cellulitis, scrotum Additional Impressions: Methamphetamine intoxication Sepsis Qualified Codes: A41.9 - Sepsis, unspecified organism Disposition: ADMITTED INPATIENT Condition: Stable Admissions Decision to Admit Reason: Admit from ER (General) Decision to Admit/Date: Dec 06, 2019 Time/Decision to Admit Time: 02:00 Departure-Patient Inst. Referrals: NO,LOCAL PHYSICIAN (PCP/Family) Primary Care Physician DRAGAN WOMACK Dec 06, 2019 01:53
[2019-12-06 02:00] LABS: BASOPHILS # (AUTO) 0.1 10^3/uL (0.0-0.1); BASOPHILS % (AUTO) 1 % (0-10); EOSINOPHILS # (AUTO) 0.2 10^3/uL (0.0-0.3); EOSINOPHILS % (AUTO) 2 % (0-10); HEMATOCRIT 38 % (40-54); HEMOGLOBIN 11.9 G/DL (13.3-17.7); LYMPHOCYTES # (AUTO) 1.8 X 10^3 (1.0-4.0); LYMPHOCYTES % (AUTO) 20 % (12-44); MEAN CORPUSCULAR HEMOGLOBIN 29 PG (25-34); MEAN CORPUSCULAR HGB CONC 32 G/DL (32-36); MEAN CORPUSCULAR VOLUME 90 FL (80-99); MEAN PLATELET VOLUME 10.6 FL (7.4-10.4); MONOCYTES # (AUTO) 0.8 X 10^3 (0.0-1.0); MONOCYTES % (AUTO) 8 % (0-12); NEUTROPHILS # (AUTO) 6.4 X 10^3 (1.8-7.8); NEUTROPHILS % (AUTO) 69 % (42-75); PLATELET COUNT 283 10^3/uL (130-400); RED CELL DISTRIBUTION WIDTH 15.6 % (10.0-14.5); WHITE BLOOD COUNT 9.2 10^3/uL (4.3-11.0)
[2019-12-06 02:08] LABS: ALBUMIN 3.7 GM/DL (3.2-4.5); CHLORIDE 107 MMOL/L (98-107); POTASSIUM 4.2 MMOL/L (3.6-5.0); SODIUM 143 MMOL/L (135-145)
[2019-12-06 02:09] LABS: AMMONIA 35 UMOL/L (11-32)
[2019-12-06 02:09] LABS: BILIRUBIN,URINE NEGATIVE (NEGATIVE); CLARITY,URINE CLEAR; COLOR,URINE YELLOW; GLUCOSE, URINE (UA) NEGATIVE (NEGATIVE); KETONES,URINE NEGATIVE (NEGATIVE); LEUKOCYTE ESTERASE ,URINE NEGATIVE (NEGATIVE); NITRITE,URINE NEGATIVE (NEGATIVE); PH,URINE 5.5 (5-9); PROTEIN,URINE TRACE (NEGATIVE)
[2019-12-06 02:10] LABS: GLUCOSE 156 MG/DL (70-105)
[2019-12-06 02:11] LABS: CARBON DIOXIDE 23 MMOL/L (21-32); TOTAL PROTEIN 6.3 GM/DL (6.4-8.2)
[2019-12-06 02:12] LABS: BILIRUBIN,TOTAL 0.3 MG/DL (0.1-1.0)
[2019-12-06 02:14] LABS: ALKALINE PHOSPHATASE 56 U/L (40-136); CREATININE SERUM 1.22 MG/DL (0.60-1.30); GFR ESTIMATED > 60
[2019-12-06 02:15] LABS: BUN/CREATININE RATIO 25
[2019-12-06 02:17] LABS: AMPHETAMINE SCREEN, URINE POSITIVE (NEGATIVE); BENZODIAZEPINES SCREEN URINE NEGATIVE (NEGATIVE); COCAINE SCREEN URINE NEGATIVE (NEGATIVE)
[2019-12-06 02:17] LABS: ALANINE AMINOTRANSFERASE 14 U/L (0-55)
[2019-12-06 02:18] LABS: INR 1.2 (0.8-1.4); PROTHROMBIN TIME PATIENT 15.4 SEC (12.2-14.7)
[2019-12-06 02:18] LABS: AMORPHOUS SEDIMENT,UR FEW AMOR URATES /LPF; BACTERIA,URINE TRACE /HPF; BARBITURATE SCREEN URINE NEGATIVE (NEGATIVE); CANNABINOID SCREEN, URINE POSITIVE (NEGATIVE); METHADONE STAT NEGATIVE (NEGATIVE); METHAMPHETAMINE SCREEN URINE S POSITIVE (NEGATIVE); OPIATE SCREEN URINE NEGATIVE (NEGATIVE); OXYCODONE STAT NEGATIVE (NEGATIVE); PROPOXYPHENE STAT NEGATIVE (NEGATIVE); SQUAMOUS EPITHELIAL CELL,UR RARE /HPF; TRICYCLIC ANTIDEPRESSANTS SCRE NEGATIVE (NEGATIVE)
[2019-12-06 02:19] LABS: HYALINE CASTS, URINE RARE /LPF
[2019-12-06] MEDS ORDERED: fentaNYL INJECTION 100 MCG/2 ML AMP IVP ONE (02:30)
--- NOTE | 2019-12-06 02:32 | NUR ---
RECEIVED REPORT FROM NIXON HARRISON.
--- NOTE | 2019-12-06 03:08 | NUR ---
MEAGAN MCGREGOR admitted to room CU8-1, with an admitting diagnosis of SEPSIS, SCROTAL CELLULITIS, AND METHAMPHETAMINE ABUSE, on 12/06/19 from ER via [facility], accompanied by NIXON HARRISON. MEAGAN GUEVARA introduced to surroundings, call light, bed controls, phone, TV, temperature control, lights, meal times, smoking policy, visitor policy, side rail policy, bathrooms and showers. Patient Rights given to patient in the handbook.MEAGAN GUEVARA verbalizes understanding that [facility] is not responsible for the loss or damage to any personal effects or valuables that are kept in the patients possession during their hospitalization.
[2019-12-06] MEDS ORDERED: ONDANSETRON 4 MG/2 ML (SDV) Z0FRAN IV PRN (03:30)
[2019-12-06] MEDS ORDERED: AZITHROMYCIN INJECTION 500 MG in NS (IVPB) 250 ML IV ONE (03:30)
[2019-12-06] MEDS ORDERED: EPINEPHrine 1 MG INJECTION 2 MG in NS (IVPB) 248 ML IV SCH (03:45)
--- NOTE | 2019-12-06 03:45 | NUR ---
PT NOTED TO BE EXTREMELY DIRTY, ESPECIALLY ON LOWER EXTREMITIES. PT REFUSED TO LET THIS RN CLEAN HIM UP DO TO HAVING PAIN IN HIS LEGS.
[2019-12-06] MEDS: NOREPINEPHRINE 4 MG/250 ML 250 ML IV SCH ×4 (03:52→19:55)
[2019-12-06] MEDS: NS IV 1000 ML 1,000 ML IV SCH ×5 (03:52→18:02)
[2019-12-06] MEDS ORDERED: NS (IVPB) 100 ML ONE (03:53)
[2019-12-06] MEDS: VASOPRESSIN INJECTION 20 UNIT in NORMAL SALINE 100 ML IV SCH ×3 (03:53→19:55)
[2019-12-06] MEDS ORDERED: PIPERACILLIN/TAZO 4.5 GM VIAL (ZOSYN) IV ONE (03:53)
[2019-12-06] MEDS: PIPERACILLIN/TAZOBACTAM (BULK) 4.5 GM in NS (IVPB) 100 ML IV SCH ×3 (04:02→20:12)
[2019-12-06] MEDS: inSUlin ASPART (NovoLOG) 1 UNIT/0.01 ML (CHARGE PER UNIT) SC SCH ×4 (05:24→20:58)
--- NOTE | 2019-12-06 05:59 | Diagnostic Imaging Report ---
Indication: Fluid retention Portable chest 2:43 AM There is cardiomegaly. Pulmonary vascularity is normal. Lungs are clear. There are no effusions or pneumothoraces. IMPRESSION: Cardiomegaly with without pulmonary venous hypertension. This is improved compared 11/30/2019. Dictated by: Dictated on workstation # [id number]
[2019-12-06 07:45] LABS: BASOPHILS # (AUTO) 0.1 10^3/uL (0.0-0.1); BASOPHILS % (AUTO) 1 % (0-10); EOSINOPHILS # (AUTO) 0.3 10^3/uL (0.0-0.3); EOSINOPHILS % (AUTO) 2 % (0-10); HEMATOCRIT 39 % (40-54); HEMOGLOBIN 11.9 G/DL (13.3-17.7); LYMPHOCYTES # (AUTO) 1.6 X 10^3 (1.0-4.0); LYMPHOCYTES % (AUTO) 15 % (12-44); MEAN CORPUSCULAR HEMOGLOBIN 28 PG (25-34); MEAN CORPUSCULAR HGB CONC 30 G/DL (32-36); MEAN CORPUSCULAR VOLUME 91 FL (80-99); MEAN PLATELET VOLUME 10.8 FL (7.4-10.4); MONOCYTES # (AUTO) 0.8 X 10^3 (0.0-1.0); MONOCYTES % (AUTO) 7 % (0-12); NEUTROPHILS # (AUTO) 8.3 X 10^3 (1.8-7.8); NEUTROPHILS % (AUTO) 75 % (42-75); PLATELET COUNT 258 10^3/uL (130-400); RED CELL DISTRIBUTION WIDTH 15.9 % (10.0-14.5); WHITE BLOOD COUNT 11.1 10^3/uL (4.3-11.0)
[2019-12-06 07:55] LABS: ALBUMIN 3.6 GM/DL (3.2-4.5); CHLORIDE 110 MMOL/L (98-107); SODIUM 143 MMOL/L (135-145)
[2019-12-06 07:56] LABS: CALCIUM 8.5 MG/DL (8.5-10.1)
[2019-12-06 07:57] LABS: GLUCOSE 132 MG/DL (70-105); TOTAL PROTEIN 6.2 GM/DL (6.4-8.2)
[2019-12-06 07:58] LABS: CARBON DIOXIDE 22 MMOL/L (21-32)
[2019-12-06 07:59] LABS: BILIRUBIN,TOTAL 0.3 MG/DL (0.1-1.0)
[2019-12-06 08:01] LABS: ALKALINE PHOSPHATASE 52 U/L (40-136); CREATININE SERUM 1.07 MG/DL (0.60-1.30); GFR ESTIMATED > 60
[2019-12-06 08:02] LABS: BUN/CREATININE RATIO 28
[2019-12-06 08:04] LABS: ALANINE AMINOTRANSFERASE 14 U/L (0-55)
[2019-12-06] MEDS ORDERED: ENOXAPARIN 40 MG/0.4 ML (LOVENOX) SYR SC SCH (09:00)
[2019-12-06] MEDS: VANCOMYCIN INJECTION 2,000 MG in NS IV 500 ML 500 ML IV SCH ×2 (10:41→21:50)
[2019-12-06] MEDS ORDERED: ADENOSINE 6 MG/2 ML (ADENOCARD) VIAL IV ONE ×2 (11:15→11:20)
--- NOTE | 2019-12-06 11:29 | NUR ---
PT PLACED ON ZOLL FOR MONITORING, DR ROQUE AND THIS RN AT BEDSIDE. HR 140. 6MG ADENOSINE IVP GIVEN AT 1119, NO CHANGE IN HR. 12MG IV ADENOSINE IVP GIVEN AT 1123, NO CHANGE. PT TO CONSIDER MAMADOU/CARDIOVERSION FOR TOMORROW AM.
--- NOTE | 2019-12-06 11:50 | NUR ---
"RD ASSESSMENT PMHx: HTN; HLD; stroke; TIA; DM; methamphetamine use/abuse PT INTERACTION: Note the following occurred both attempts at nutrition assessment. Note pt acknowledged my presence when spoken to, but appeared to fall back asleep when I began nutrition assessment. Note all information provided is per chart review. Note PO intake of 0% x1meal. Note no record of emesis or BM, and pt not currently on bowel regimen. Note recent 35# wt gain x3mon. Note unable to determine current management level of DM or recent HbA1c. ABNORMAL NUTRITION-RELATED LAB VALUES LOW: Pro 6.4 HIGH: Cl 110; BUN 30; glu 132 Est. kcal needs: 3647-7134 kcal | 15-18 kcal/kg Est. Pro needs: 104-130 g Pro | 0.8-1.0 g Pro/kg PES STATEMENT: Inadequate oral intake (NI-2.1) related to loss of appetite as evidenced by chart review | PO intake 0% x1meal INTERVENTION: Continue with current diet order of CHO 60g/m 1snack diet. Pt may benefit from nutrition supplementation if PO intake remains low. Did not offer diet education on DM management at this time. Will attempt to offer again prior to discharge. Will continue to follow and reassess as pt needs, intake, and status change. MONITOR/EVALUATE: PO Intake; Plan of Care; Hydration Status; Weight Status; Lab Values Melo Guerra, , RD, LD"
--- NOTE | 2019-12-06 11:54 | Consultation-Cardiology ---
HPI-Cardiology Cardiology Consultation: Date of Consultation 12/06/19 Date of Admission Attending Physician Samia Dorado MD Admitting Physician No,Local Physician Consulting Physician Calvin STORM MD HPI: Time Seen by a Provider: 11:00 Chief Complaint: Tachycardia This is a 54-year-old gentleman who I saw on November 11, 2019 for an acute stroke. He was given TPA. Negative carotids, negative telemetry. Possible cryptogenic stroke. However we found moderate to severe LV dysfunction on echocardiogram therefore oral anticoagulation was recommended. LifeVest also was recommended. However the patient has not been compliant with lifevest. He presented with pain and swelling in his perineal area, likely significant infection. He is an active smoker, drinks alcohol and recently used meth as well. He has history of hypertension, hyperlipidemia, type II diabetes. He was supposed to follow-up in my office for possible implantable loop recorder. Also coronary angiography was recommended and we were supposed to arrange it one month after the index event, i.e. on 12/10/2019. However patient did not follow-up in the office. He was found to be tachycardic. Review of Systems-Cardiology Review of Systems Constitutional: As described under HPI; No As described under HPI, No no symptoms reported, No chills; fever; No lightheadedness Eyes: No As described under HPI, No no symptoms reported, No blindness, No blurred vision, No contact lenses, No drainage, No decreased acuity, No foreign body sensation, No pain, No vision change Ears/Nose/Throat: No As described under HPI, No no symptoms reported, No chronic hearing loss, No ear discharge, No ear pain, No nasal drainage, No ulcerations Respiratory: No no symptoms reported; As described under HPI; No As described under HPI, No cough, No orthopnea, No shortness of breath, No SOB with excertion Cardiovascular: No no symptoms reported; As described under HPI; No As described under HPI, No chest pain, No edema, No irregular heart rate, No lightheadedness; palpitations Gastrointestinal: No no symptoms reported, No As described under HPI, No abdomen distended, No abdominal pain, No blood streaked bowels, No constipation, No diarrhea, No nausea, No vomiting, No stool coloration changes Genitourinary: As described under HPI; No burning, No dysuria, No discharge, No frequency, No flank pain, No hematuria, No urgency Skin: No rash, No skin related problems, No ulcerations Psychiatric/Neurological: No anxiety, No depression, No seizure, No focal weakness, No syncope Hematologic: No bleeding abnormalities All Other Systems Reviewed Negative Unless Noted: Yes MFM-[id number]-Poxdpm Hx Patient Social History Alcohol Use: Regular Use Recreational Drug Use: No Type Used: Cigarettes Recent Foreign Travel: No Recent Infectious Disease Expo: No Hospitalization with Isolation: Denies Immunizations Up To Date Tetanus Booster (TDap): Unknown Past Medical History PMH As described under Assessment. Family Medical History Family History: Coronary thrombosis 19 FATHER Diabetes mellitus G8 BROTHER FH: lung cancer 19 MOTHER (MOTHER FROM LUNG [place]) Hypercholesterolemia 19 FATHER Myocardial infarction 19 FATHER ( FROM [place]) Allergies and Home Medications Allergies Coded Allergies: No Known Drug Allergies (Unverified , 02/26/14) Home Medications Apixaban 5 Mg Tablet, 5 MG PO BID, (Reported) Atorvastatin Calcium 80 Mg Tablet, 80 MG PO HS, (Reported) Clopidogrel Bisulfate 75 Mg Tablet, 75 MG PO DAILY, (Reported) Furosemide 40 Mg Tablet, 40 MG PO BID, (Reported) Lisinopril 20 Mg Tablet, 20 MG PO DAILY, (Reported) Metformin HCl 1,000 Mg Tablet, 1,000 MG PO BID, (Reported) Metoprolol Tartrate 50 Mg Tablet, 50 MG PO BID, (Reported) Potassium Chloride 20 Meq Tab.er.prt, 20 MEQ PO BID, (Reported) Patient Home Medication List Home Medication List Reviewed: Yes Physical Exam-Cardiology Physical Exam Vital Signs/I&O 12/08/19 12/08/19 12/08/19 12/08/19 07:00 07:28 08:00 08:43 Temp 37.0 Pulse 122 123 Resp 18 B/P (MAP) 129/90 (103) Pulse Ox 94 95 O2 Delivery Nasal Cannula Room Air Room Air O2 Flow Rate 3.00 12/08/19 12/08/19 12/08/19 12/08/19 08:49 09:00 12:00 12:00 Temp 36.4 Pulse 108 Resp 22 B/P (MAP) 150/99 (116) Pulse Ox 92 O2 Delivery Room Air Room Air Room Air Room Air 12/08/19 12/08/19 12/08/19 12/08/19 12:00 12:34 14:06 15:52 Temp 36.3 36.8 Pulse 106 109 100 Resp 20 22 B/P (MAP) 135/83 (100) 153/81 (105) Pulse Ox 90 90 94 O2 Delivery Room Air Room Air Nasal Cannula O2 Flow Rate 2.00 12/08/19 00:00 Intake Total 1940 ml Output Total 1775 ml Balance 165 ml Capillary Refill : Less Than 3 Seconds Constitutional: appears stated age, AAO x 3; No apparent distress; well- developed, well-nourished HEENT: PERRL; No discharge; hearing is well preserved, oral hygience is good; No ulceration, No xanthelasmas are seen Neck: No carotid bruit; carotid pulses are 2 + bilaterally Respiratory: chest is bilaterally symmetric, lungs clear to auscultation Cardiovascular: regular rate-rhythm, tachycardia, S1 and S2; No diastolic murmur, No systolic murmur Gastrointestinal: soft, audible bowel sounds; No spleenomegaly Rectal: deferred Extremities: normal inspection, pedal edema; No clubbing, No cyanosis, No significant edema Neurologic/Psychiatric: no motor/sensory deficits, alert, normal mood/affect, oriented x 3, power is 5/5 both on sides Skin: normal color, warm/dry; No rash, No ulcerations Data Review Labs Laboratory Tests 12/07/19 18:00: Blood Gas Puncture Site LT RAD, Blood Gas Patient Temperature 36.8, Arterial Blood pH 7.32*L, Arterial Blood Partial Pressure CO2 48H, Arterial Blood Partial Pressure O2 72L, Arterial Blood HCO3 24, Arterial Blood Total CO2 25.5, Arterial Blood Oxygen Saturation 92L, Arterial Blood Base Excess -1.4, Mike Test YES- POS, Blood Gas Ventilator Setting NO, Blood Gas Inspired Oxygen NA 12/07/19 20:11: Glucometer 306H 12/08/19 06:00: Glucometer 288H 12/08/19 08:30: Vancomycin Level Trough 25.3*H 12/08/19 10:49: Glucometer 234H 12/08/19 15:36: Glucometer 204H Microbiology 12/06/19 MRSA Screen - Final, Complete MRSA not isolated 12/06/19 Blood Culture - Preliminary, Resulted No growth 12/06/19 Urine Culture - Final, Complete NO GROWTH ECG Impression ECG Comment Atrial flutter with 2-1 AV block A/P-Cardiology Assessment/Admission Diagnosis Scrotal cellulitis, abscess, Meth abuse, Active smoker, Cardiomyopathy of unknown origin, Recent stroke, status post thrombolytics. Positive cardiac enzymes. DM, HTN, Hyperlipidemia, RBBB, LAFB, LVH on EKG. Plan Scrotal swelling and cellulitis, defer to the primary team. Treatment with IV antibiotics. Meth abuse, strongly recommended to quit. Atrial flutter with 2-1 AV block. Refractory to medical therapy with IV Cardizem. Patient is on Eliquis. Cardioversion is recommended. 1 percent risk of stroke was discussed. Recent Acute stroke, status post thrombolytics, resolution. Will require rehabilitation. Previous admission showed Positive cardiac enzymes. Coronary angiography is contraindicated in an acute stroke for at least a month from the index event which was on 11/10/2019. Smoking, smoking cessation was strongly recommended. DM, defer to the primary team. HTN, aggressive blood pressure management. Hyperlipidemia, high-dose Lipitor therapy. RBBB, continue to follow. 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 LVH on EKG. Cardiomyopathy of unknown origin. Likely nonischemic. However patient had positive cardiac enzymes on recent admission. Therefore coronary angiography was recommended. However was delayed until end of November. Thank you for your consultation. Please call me if you have any questions. Monika Storm MD, FACP, FACC, FSCAI, FHRS, CCDS Interventional Cardiology Cardiac Electrophysiology Vascular Medicine and Endovascular Interventions Clinical Quality Measures DVT/VTE Risk/Contraindication: Risk Factor Score Per Nursin RFS Level Per Nursing on Admit: 4+=Very High Calvin STORM MD Dec 06, 2019 11:54
[2019-12-06] MEDS ORDERED: POTA20TA15 PO (12:05)
[2019-12-06] MEDS ORDERED: METO50TA15 PO (12:05)
[2019-12-06] MEDS ORDERED: ATOR80TA76 PO (12:05)
[2019-12-06] MEDS ORDERED: FURO40TA4 PO (12:05)
[2019-12-06] MEDS ORDERED: CLOP75TA28 PO (12:05)
[2019-12-06] MEDS ORDERED: APIX5TAB PO (12:05)
--- NOTE | 2019-12-06 12:07 | NUR ---
SPOKE WITH THE PT (I CALLED HIS ROOM PHONE) WENT THRU THE EXT MED HISTORY AND CALLED [facility] TO COMPLETE THE MED REC THE PT WAS UNSURE OF THE NAMES OF HIS MEDICATIONS AND SEEMED TO BE FRUSTRATED WHEN I ASKED. THEREFORE I READ THE MEDICATION NAMES FROM THE EXT MED HISTORY AND THE PT WAS ABLE TO TELL ME HOW/WHEN HE TAKES THEM. I EXPLAINED WHY WE ASK THESE TYPES OF QUESTIONS AND THE PT SAID HE UNDERSTOOD AND IS JUST FRUSTRATED THAT HE KEEPS GETTING NEW/DIFFERENT MEDS AND HE CANT KEEP UP ON THE EXT MED HISTORY IT SHOWED PREDNISOLONE AND POLYMYXIN/TRIM EYE DROPS BUT THE PT SAID HE HAS FINISHED THOSE AND IS NO LONGER TAKING PT DENIES TAKING ANY OTC MEDS
[2019-12-06] MEDS: HYDROcodone/APAP 5 MG/325 MG (LORTAB) TAB PO PRN ×2 (13:33→20:13)
--- NOTE | 2019-12-06 14:18 | History & Physical ---
HPI History of Present Illness: 54 yo male came to ER due to pain and swelling in penis and scrotum area that started yesterday. He denies fever or any other concerns. He denies medical history, but record review reveals he was recently admitted after a CVA that was treated with thrombolytic and he had EF 20%. Source: patient Exam Limitations: other (patient hesitant to answer many questions) Date seen by provider: Dec 06, 2019 Time Seen by Provider: 09:15 Attending Physician Zara Dorado MD PCP No,Local Physician Consult Date of Admission Dec 06, 2019 at 02:45 Home Medications Home Medications Reviewed patient Home Medication Reconciliation performed by pharmacy medication reconciliations die cast technician and/or nursing. Patients Allergies have been reviewed. Allergies Coded Allergies: No Known Drug Allergies (Unverified , 02/26/14) [id number] Hx Patient Social History Alcohol Use: Regular Use Recreational Drug Use: No (denies, but urine drug screen positive for methamphetamine and THC 12/05/19) Type Used: Cigarettes Recent Foreign Travel: No Contact w/other who traveled: No Recent Hopitalizations: No Recent Infectious Disease Expo: No Immunizations Up To Date Tetanus Booster (TDap): Unknown Past Medical History PMHx: CVA CHF HTN DMII Family Medical History Family History: Coronary thrombosis 19 FATHER Diabetes mellitus G8 BROTHER FH: lung cancer 19 MOTHER (MOTHER FROM LUNG [place]) Hypercholesterolemia 19 FATHER Myocardial infarction 19 FATHER ( FROM [place]) Review of Systems ([facility]) Constitutional: No fever EENTM: No throat pain Respiratory: No cough, No short of breath Cardiovascular: No chest pain Gastrointestinal: No abdominal pain, No constipation, No diarrhea, No nausea, No vomiting Genitourinary: see HPI Skin: see HPI Reviewed Test Results Reviewed Test Results Lab Laboratory Tests Test 12/06/19 01:46 12/06/19 01:49 12/06/19 01:50 12/06/19 04:04 Range/Units Troponin I 0.049 H <0.028 NG/ML White Blood Count 9.2 4.3-11.0 10^3/uL Red Blood Count 4.18 L 4.35-5.85 10^6/uL Hemoglobin 11.9 L 13.3-17.7 G/DL Hematocrit 38 L 40-54 % Mean Corpuscular Volume 90 80-99 FL Mean Corpuscular Hemoglobin 29 25-34 PG Mean Corpuscular Hemoglobin Concent 32 32-36 G/DL Red Cell Distribution Width 15.6 H 10.0-14.5 % Platelet Count 283 130-400 10^3/uL Mean Platelet Volume 10.6 H 7.4-10.4 FL Neutrophils (%) (Auto) 69 42-75 % Lymphocytes (%) (Auto) 20 12-44 % Monocytes (%) (Auto) 8 0-12 % Eosinophils (%) (Auto) 2 0-10 % Basophils (%) (Auto) 1 0-10 % Neutrophils # (Auto) 6.4 1.8-7.8 X 10^3 Lymphocytes # (Auto) 1.8 1.0-4.0 X 10^3 Monocytes # (Auto) 0.8 0.0-1.0 X 10^3 Eosinophils # (Auto) 0.2 0.0-0.3 10^3/uL Basophils # (Auto) 0.1 0.0-0.1 10^3/uL Prothrombin Time 15.4 H 12.2-14.7 SEC INR Comment 1.2 0.8-1.4 Activated Partial Thromboplast Time 30 24-35 SEC Sodium Level 143 135-145 MMOL/L Potassium Level 4.2 3.6-5.0 MMOL/L Chloride Level 107 98-107 MMOL/L Carbon Dioxide Level 23 21-32 MMOL/L Anion Gap 13 5-14 MMOL/L Blood Urea Nitrogen 30 H 7-18 MG/DL Creatinine 1.22 0.60-1.30 MG/DL Estimat Glomerular Filtration Rate > 60 BUN/Creatinine Ratio 25 Glucose Level 156 H 70-105 MG/DL Lactic Acid Level 2.14 *H 1.22 0.50-2.00 MMOL/L Calcium Level 9.0 8.5-10.1 MG/DL Corrected Calcium 9.2 8.5-10.1 MG/DL Total Bilirubin 0.3 0.1-1.0 MG/DL Aspartate Amino Transf (AST/SGOT) 12 5-34 U/L Alanine Aminotransferase (ALT/SGPT) 14 0-55 U/L Alkaline Phosphatase 56 40-136 U/L Ammonia 35 H 11-32 UMOL/L B-Type Natriuretic Peptide 772.8 H <100.0 PG/ML Total Protein 6.3 L 6.4-8.2 GM/DL Albumin 3.7 3.2-4.5 GM/DL Serum Alcohol < 10 <10 MG/DL Urine Color YELLOW Urine Clarity CLEAR Urine pH 5.5 5-9 Urine Specific [place] >=1.030 1.016-1.022 Urine Protein TRACE H NEGATIVE Urine Glucose (UA) NEGATIVE NEGATIVE Urine Ketones NEGATIVE NEGATIVE Urine Nitrite NEGATIVE NEGATIVE Urine Bilirubin NEGATIVE NEGATIVE Urine Urobilinogen 0.2 < = 1.0 MG/DL Urine Leukocyte Esterase NEGATIVE NEGATIVE Urine RBC (Auto) NEGATIVE NEGATIVE Urine RBC NONE /HPF Urine WBC NONE /HPF Urine Squamous Epithelial Cells RARE /HPF Urine Crystals PRESENT H /LPF Urine Amorphous Sediment FEW SAUNDRA URATES H /LPF Urine Bacteria TRACE /HPF Urine Casts PRESENT /LPF Urine Hyaline Casts RARE /LPF Urine Mucus SMALL H /LPF Urine Culture Indicated CULTURE PENDING Urine Opiates Screen NEGATIVE NEGATIVE Urine Oxycodone Screen NEGATIVE NEGATIVE Urine Methadone Screen NEGATIVE NEGATIVE Urine Propoxyphene Screen NEGATIVE NEGATIVE Urine Barbiturates Screen NEGATIVE NEGATIVE Ur Tricyclic Antidepressants Screen NEGATIVE NEGATIVE Urine Phencyclidine Screen NEGATIVE NEGATIVE Urine Amphetamines Screen POSITIVE H NEGATIVE Urine Methamphetamines Screen POSITIVE H NEGATIVE Urine Benzodiazepines Screen NEGATIVE NEGATIVE Urine Cocaine Screen NEGATIVE NEGATIVE Urine Cannabinoids Screen POSITIVE H NEGATIVE Test 12/06/19 07:38 12/06/19 11:42 Range/Units White Blood Count 11.1 H 4.3-11.0 10^3/uL Red Blood Count 4.29 L 4.35-5.85 10^6/uL Hemoglobin 11.9 L 13.3-17.7 G/DL Hematocrit 39 L 40-54 % Mean Corpuscular Volume 91 80-99 FL Mean Corpuscular Hemoglobin 28 25-34 PG Mean Corpuscular Hemoglobin Concent 30 L 32-36 G/DL Red Cell Distribution Width 15.9 H 10.0-14.5 % Platelet Count 258 130-400 10^3/uL Mean Platelet Volume 10.8 H 7.4-10.4 FL Neutrophils (%) (Auto) 75 42-75 % Lymphocytes (%) (Auto) 15 12-44 % Monocytes (%) (Auto) 7 0-12 % Eosinophils (%) (Auto) 2 0-10 % Basophils (%) (Auto) 1 0-10 % Neutrophils # (Auto) 8.3 H 1.8-7.8 X 10^3 Lymphocytes # (Auto) 1.6 1.0-4.0 X 10^3 Monocytes # (Auto) 0.8 0.0-1.0 X 10^3 Eosinophils # (Auto) 0.3 0.0-0.3 10^3/uL Basophils # (Auto) 0.1 0.0-0.1 10^3/uL Sodium Level 143 135-145 MMOL/L Potassium Level 4.0 3.6-5.0 MMOL/L Chloride Level 110 H 98-107 MMOL/L Carbon Dioxide Level 22 21-32 MMOL/L Anion Gap 11 5-14 MMOL/L Blood Urea Nitrogen 30 H 7-18 MG/DL Creatinine 1.07 0.60-1.30 MG/DL Estimat Glomerular Filtration Rate > 60 BUN/Creatinine Ratio 28 Glucose Level 132 H 70-105 MG/DL Calcium Level 8.5 8.5-10.1 MG/DL Corrected Calcium 8.8 8.5-10.1 MG/DL Total Bilirubin 0.3 0.1-1.0 MG/DL Aspartate Amino Transf (AST/SGOT) 11 5-34 U/L Alanine Aminotransferase (ALT/SGPT) 14 0-55 U/L Alkaline Phosphatase 52 40-136 U/L Troponin I 0.053 H <0.028 NG/ML Total Protein 6.2 L 6.4-8.2 GM/DL Albumin 3.6 3.2-4.5 GM/DL Glucometer 240 H 70-110 MG/DL Radiology CXR 12/04: IMPRESSION: "Cardiomegaly with without pulmonary venous hypertension. This is improved compared 11/30/2019." Physical Exam-([facility]) Physical Exam Vital Signs VS - Last 72 Hours, by Label 12/06/19 12/06/19 12/06/19 12/06/19 01:38 02:08 02:37 03:10 Temp 36.5 Pulse 133 122 Resp 18 18 B/P (MAP) 97/70 (79) 98/66 Pulse Ox 98 98 99 O2 Delivery Room Air Room Air Room Air Room Air 12/06/19 12/06/19 12/06/19 12/06/19 03:15 03:19 03:30 03:34 Temp 36.4 Pulse 87 140 89 137 Resp 30 30 20 B/P (MAP) 113/68 (83) 122/63 (82) 128/93 Pulse Ox 99 99 93 O2 Delivery Room Air Room Air Room Air 12/06/19 12/06/19 12/06/19 12/06/19 03:45 04:00 04:00 04:16 Temp 36.3 Pulse 89 93 Resp 30 28 B/P (MAP) 119/77 (91) 118/69 (85) Pulse Ox 99 99 O2 Delivery Room Air Room Air Room Air 12/06/19 12/06/19 12/06/19 12/06/19 04:30 05:00 06:00 06:37 Pulse 85 82 140 140 Resp 20 32 17 B/P (MAP) 114/57 (76) 107/67 (80) 110/82 (91) Pulse Ox 96 97 95 O2 Delivery Room Air Room Air Room Air 12/06/19 12/06/19 12/06/19 12/06/19 07:00 07:11 07:54 08:00 Temp 36.5 Pulse 138 138 Resp 22 20 B/P (MAP) 115/76 (89) 111/88 (96) Pulse Ox 88 96 O2 Delivery Room Air Room Air Room Air 12/06/19 12/06/19 12/06/19 12/06/19 08:20 08:36 09:00 10:00 Pulse 138 138 Resp 16 21 B/P (MAP) 121/93 (102) 103/76 (85) Pulse Ox 94 O2 Delivery Room Air Room Air Room Air 12/06/19 12/06/19 12/06/19 12/06/19 11:00 11:37 12:21 12:46 Temp 36.1 Pulse 140 140 Resp 21 B/P (MAP) 111/99 (103) Pulse Ox 96 O2 Delivery Room Air Room Air Capillary Refill : Less Than 3 Seconds General Appearance: no apparent distress Respiratory: lungs clear, normal breath sounds Cardiovascular: no murmur, tachycardia Gastrointestinal: normal bowel sounds, non tender, soft Extremities: other (chronic venous stasis changes in both legs, marked dirt/dishevelled appearance on legs and feet, left thigh with mild erythema, 1+ edema right foot to mid calf, 2+ edema left foot to mid-calf.) Neurologic/Psychiatric: alert, other (irritable) Skin: other (erythema and swelling in scrotum) Assessment/Plan Assessment/Plan Admission Status: Inpatient Order (span 2 midnights) Reason for Inpatient Admission: Sepsis with severe underlying CHF and DMII (1) Sepsis Status: Acute Assessment & Plan: Tachycardia, mildly elevated initial lactic acid (resolved). Suspect secondary to cellulitis. Zosyn and vancomycin. Qualifiers: Qualified Codes: A41.9 - Sepsis, unspecified organism (2) Cellulitis, scrotum Status: Acute Assessment & Plan: Zosyn and vancomycin. (3) Elevated troponin Status: Acute Assessment & Plan: Mildly elevated, suspect secondary to tachycardia and sepsis, Cardiology consulted, appreciate recommendations. (4) T2DM (type 2 diabetes mellitus) Status: Chronic Assessment & Plan: Hold metformin, diabetic diet, sliding scale insulin. Qualifiers: (5) Congestive heart failure Assessment & Plan: EF 20%, discharged with lifevest last stay. BNP elevated, tachycardic, Cardiology consulted, appreciate recommendations. Qualifiers: Qualified Codes: I50.20 - Unspecified systolic (congestive) heart failure (6) HLD (hyperlipidemia) Status: Chronic Assessment & Plan: Resume home statin (7) Tachycardia Status: Acute Assessment & Plan: Suspect secondary to sepsis, however, persistent after fluid resuscitation and with underlying CHF, Cardiology consulted. (8) Methamphetamine intoxication Status: Acute (9) HTN (hypertension) Status: Chronic Assessment & Plan: Hold home antihypertensive, currently normal to low BP. Qualifiers: Qualified Codes: I10 - Essential (primary) hypertension (10) DVT prophylaxis Status: Acute Assessment & Plan: On chronic apixaban, resumed. Clinical Quality Measures DVT/VTE Risk/Contraindication: Risk Factor Score Per Nursin RFS Level Per Nursing on Admit: 4+=Very High ZARA DORADO MD Dec 06, 2019 14:18
--- NOTE | 2019-12-06 14:19 | NUR ---
CM/SS visited with patient for discharge planning. The patient was pleasant and willing to talk with this ss. He states that he is "doing alright" today and asked this ss to sit him up in bed a little bit. The patient reports that he felt he was doing well at home and did not have any concerns. The patient was not very talkative and stated small yes/no answers and phrases. Home Health: [place] at home. CM/SS will keep in contact with home health to get a resumption of care for patient at time of discharge. CM/SS will continue to follow for discharge planning.
--- NOTE | 2019-12-06 15:11 | NUR ---
PT'S HR CONSISTENTLY 140'S WHILE RESTING IN BED. DR ROQUE NOTIFIED. NEW ORDERS RECEIVED TO START CARDIZEM DRIP.
[2019-12-06] MEDS ORDERED: dilTIAZem DRIP PRE-MIX 125 ML IV ONE (15:27)
[2019-12-06] MEDS: dilTIAZem DRIP PRE-MIX 125 ML IV SCH (15:31)
--- NOTE | 2019-12-06 16:56 | NUR ---
pt's heart rate continues to be 140's while on cardizem gtt at 15, dr merida informed. no new orders received.
[2019-12-06] MEDS: APIXABAN 5 MG (ELIQUIS) TABLET PO SCH (20:12)
[2019-12-06] MEDS: LORazepam INJ 2 MG/ML (ATIVAN) VIAL IV PRN (21:16)
[2019-12-07] VITALS (12 sets, daily range): BP systolic 99–147; BP diastolic 73–99
[2019-12-07] MEDS: NS IV 1000 ML 1,000 ML IV SCH ×5 (00:26→16:28)
[2019-12-07] MEDS: dilTIAZem DRIP PRE-MIX 125 ML IV SCH ×2 (00:30→09:20)
[2019-12-07] MEDS: NOREPINEPHRINE 4 MG/250 ML 250 ML IV SCH ×4 (02:11→21:14)
[2019-12-07] MEDS: HYDROcodone/APAP 5 MG/325 MG (LORTAB) TAB PO PRN ×2 (02:49→20:13)
[2019-12-07] MEDS: PIPERACILLIN/TAZOBACTAM (BULK) 4.5 GM in NS (IVPB) 100 ML IV SCH ×3 (03:13→21:47)
[2019-12-07 03:17] LABS: BASOPHILS # (AUTO) 0.1 10^3/uL (0.0-0.1); BASOPHILS % (AUTO) 1 % (0-10); EOSINOPHILS # (AUTO) 0.3 10^3/uL (0.0-0.3); EOSINOPHILS % (AUTO) 3 % (0-10); HEMATOCRIT 38 % (40-54); HEMOGLOBIN 11.3 G/DL (13.3-17.7); LYMPHOCYTES # (AUTO) 1.5 X 10^3 (1.0-4.0); LYMPHOCYTES % (AUTO) 14 % (12-44); MEAN CORPUSCULAR HEMOGLOBIN 28 PG (25-34); MEAN CORPUSCULAR HGB CONC 30 G/DL (32-36); MEAN CORPUSCULAR VOLUME 92 FL (80-99); MEAN PLATELET VOLUME 10.5 FL (7.4-10.4); MONOCYTES # (AUTO) 0.9 X 10^3 (0.0-1.0); MONOCYTES % (AUTO) 8 % (0-12); NEUTROPHILS # (AUTO) 8.4 X 10^3 (1.8-7.8); NEUTROPHILS % (AUTO) 75 % (42-75); PLATELET COUNT 274 10^3/uL (130-400); RED CELL DISTRIBUTION WIDTH 16.1 % (10.0-14.5); WHITE BLOOD COUNT 11.1 10^3/uL (4.3-11.0)
[2019-12-07 03:36] LABS: BUN/CREATININE RATIO 33; CALCIUM 7.8 MG/DL (8.5-10.1); CARBON DIOXIDE 23 MMOL/L (21-32); CHLORIDE 113 MMOL/L (98-107); CREATININE SERUM 0.82 MG/DL (0.60-1.30); GFR ESTIMATED > 60; GLUCOSE 121 MG/DL (70-105); POTASSIUM 3.9 MMOL/L (3.6-5.0); SODIUM 144 MMOL/L (135-145)
[2019-12-07] MEDS: VASOPRESSIN INJECTION 20 UNIT in NORMAL SALINE 100 ML IV SCH ×3 (03:48→21:18)
[2019-12-07] MEDS: inSUlin ASPART (NovoLOG) 1 UNIT/0.01 ML (CHARGE PER UNIT) SC SCH ×4 (05:20→20:19)
[2019-12-07] MEDS ORDERED: LIDOCAINE 2% VISCOUS 15 ML UDC ONE ×2 (07:47→11:58)
[2019-12-07] MEDS ORDERED: NS IV 500 ML 500 ML ONE (07:49)
[2019-12-07] MEDS ORDERED: LIDOCAINE 2% VISCOUS 15 ML UDC PO ONE (09:30)
[2019-12-07] MEDS: CLOPIDOGREL 75 MG (PLAVIX) TABLET PO SCH (10:31)
[2019-12-07] MEDS: APIXABAN 5 MG (ELIQUIS) TABLET PO SCH ×2 (10:31→20:12)
[2019-12-07] MEDS: VANCOMYCIN INJECTION 2,000 MG in NS IV 500 ML 500 ML IV SCH ×2 (10:32→21:47)
--- NOTE | 2019-12-07 12:13 | Progress Note - Hospitalist ---
Subjective HPI/CC On Admission Date Seen by Provider: Dec 07, 2019 Time Seen by Provider: 07:30 Subjective/Events-last exam Patient denies chest pain or palpitation reports still has scrotal pain but not as bad today. He reports shortness of breath with exertion but no shortness of breath at rest. Denies chills fever or night sweats. Focused Exam Lactate Level 12/06/19 01:49: Lactic Acid Level 2.14*H 12/06/19 04:04: Lactic Acid Level 1.22 Time of Focused Exam: 02:40 Objective Exam Vital Signs Vital Signs Date Time Temp Pulse Resp B/P (MAP) Pulse Ox O2 Delivery O2 Flow Rate FiO2 12/07/19 09:00 Room Air 12/07/19 08:24 2.00 12/07/19 08:00 118 38 121/99 (106) 96 12/07/19 07:21 37.7 Capillary Refill : Less Than 3 Seconds General Appearance: No Apparent Distress, Chronically ill Respiratory: No Accessory Muscle Use, No Respiratory Distress, Other (Minich breath sounds posteriorly very faint expiratory wheeze bilateral no rales or rhonchi appreciated.) Cardiovascular: No Gallop, No JVD, No Murmur, Irregularly Irregular Gastrointestinal: Normal Bowel Sounds, No Organomegaly, No Pulsatile Mass, Non Tender, Soft, Other (Reducible paraumbilical hernia noted nontender) Genital/Rectal: Other (Significant scrotal edema noted bilaterally mild eryt taniya there is no induration the patient was too tender for me to do testicular examination) Results/Procedures Lab Laboratory Tests 12/07/19 03:00 Patient resulted labs reviewed. Assessment/Plan Assessment and Plan Assess & Plan/Chief Complaint A/P 1. Suspect that acute orchitis is a little more likely than scrotal c ellulitis but in either regard continue broad-spectrum antibiotics for now patient is benefiting. 2. Atrial fibrillation with rapid ventricular response patient scheduled for cardioversion if MAMADOU reveals no evidence for atrial thrombus formation per Dr. Storm. Transfer to the floor but only if okay with cardiology at some point after likely cardioversion. Clinical Quality Measures DVT/VTE Risk/Contraindication: Risk Factor Score Per Nursin RFS Level Per Nursing on Admit: 4+=Very High ALFREDO SHOOK MD Dec 07, 2019 12:13
[2019-12-07] MEDS ORDERED: proPOfol 200 MG/20 ML (DIPRIVAN) VIAL IV ONE (12:53)
[2019-12-07] MEDS ORDERED: MIDAZOLAM 5 MG/5 ML (VERSED) VIAL ONE (12:53)
--- NOTE | 2019-12-07 13:08 | NUR ---
MAMADOU/Cardioversion procedure start time is 1308. throughout the procedure patient was given 3mg of versed and 80mg of propofol administered by harshad Rivas. MAMADOU performed, bubble test was done. patient was shocked 1 time at 200j, after the 1 shock patient was in sinus rhythm. this nurse obtained an EKG after cardioversion to confirm rhythm. 1319 procedure end time 1325 patient following commands, oral airway removed by this nurse. Patient is alert and oriented, answering questions and following commands appropriately. 2mg of versed wasted with NIXON Boykin. 20mg of propofol wasted with NIXON Boykin.
--- NOTE | 2019-12-07 13:41 | Anesthesia-General Post-Op ---
MAC Patient Condition Mental Status/LOC: Same as Preop Cardiovascular: Satisfactory Nausea/Vomiting: Absent Respiratory: Satisfactory Pain: Controlled Complications: Absent Post Op Complications Complications None Follow Up Care/Instructions Patient Instructions None needed. Anesthesiology Discharge Order Discharge Order Patient is doing well, no complaints, stable vital signs, no apparent adverse anesthesia problems. No complications reported per nursing. ORION RIGGINS CRNA Dec 07, 2019 13:41
[2019-12-07] MEDS: NS IV 500 ML 500 ML IV SCH (15:08)
--- NOTE | 2019-12-07 16:52 | NUR ---
SBAR report called to Karyna ALICEA
--- NOTE | 2019-12-07 17:03 | NUR ---
Patient is having SOA. This nurse called to update him on patient's SOA. Lungs sound coarse and tight. patient is on 4L O2 per nasal canula and saturation is 90%, patient is tachycardic. Order received from for duoneb now and Q6H and to get an ABG in 1hr. Will continue to closely monitor patient. This nurse called RT immediately after speaking with to update them on patient.
--- NOTE | 2019-12-07 17:34 | NUR ---
stopped transfer to 4th floor order.
[2019-12-07 18:04] LABS: ABG BASE EXCESS -1.4 MMOL/L (-2.5-2.5); ABG OXYGEN SATURATION 92 % (94-100); ABG PCO2 48 MMHG (35-45); ABG PO2 72 MMHG (79-93); ABG TCO2 25.5 MMOL/L (21.0-31.0)
[2019-12-07 18:06] LABS: ABG PH 7.32 (7.37-7.43); ALLENS TEST YES-POS
[2019-12-07 18:07] LABS: PATIENT TEMP 36.8; VENTILATOR NO
--- NOTE | 2019-12-07 18:10 | NUR ---
This nurse called to give him results of ABG. I updated on patients HR of 117 and b/p of 147/99. Order received to stop NS IV fluids and to give 40mg of lasix IV one time now.
[2019-12-07] MEDS ORDERED: FUROSEMIDE 40 MG/4 ML INJ (LASIX) IVP ONE (18:15)
[2019-12-07] MEDS ORDERED: LIDOCAINE UROJET 2% GEL 10 ML PKG ONE (20:02)
[2019-12-07] MEDS: LORazepam INJ 2 MG/ML (ATIVAN) VIAL IV PRN (20:09)
[2019-12-07] MEDS: RT-ALBUTEROL/IPRATROPIUM 3 ML (DUONEB) VIAL INH SCH (20:56)
--- NOTE | 2019-12-07 21:58 | Cardioversion ---
Cardioversion PROCEDURE PHYSICIAN: Monika Storm MD DATE OF PROCEDURE: 12/07/19 DIRECT EXTERNAL ELECTRICAL CARDIOVERSION: Indications: Atrial Fibrillation with rapid ventricular rate Preoperative diagnoses: Atrial Fibrillation with rapid ventricular rate Postoperative diagnosis: Sinus rhythm, Successful Electrical Cardioversion History: This is a 54-year-old gentleman with recent meth abuse. Presents with atrial flutter, degenerated to atrial fibrillation. Anesthesia: By Anesthesia services Complications: None Specimen: None Contrast: 0 Flouroscopy: none Procedure Details: The patient was brought the general laborer after informed consent was taken, all the risks and complications were explained including the risk of stroke. Transesophageal echocardiogram did not demonstrate any left atrial or left atrial appendage thrombus. Electrical cardioversion was carried out with anesthesia support with propofol. 120 joules of synchronized shock was delivered through external patches which promptly restored sinus rhythm. The patient tolerated the procedure well. Conclusions: 1.Successful Cardioversion. 2.Continue oral anticoagulation and rate controlling agent. Monika Storm MD, [facility] Cardiac Electrophysiology Calvin STORM MD Dec 07, 2019 21:58
--- NOTE | 2019-12-07 21:58 | Cardiology Progress Note ---
Cardiology SOAP Progress Note Subjective: Continues to be in tachycardia. Objective: I&O/Vital Signs 12/08/19 12/08/19 12/08/19 12/08/19 07:00 07:28 08:00 08:43 Temp 37.0 Pulse 122 123 Resp 18 B/P (MAP) 129/90 (103) Pulse Ox 94 95 O2 Delivery Nasal Cannula Room Air Room Air O2 Flow Rate 3.00 12/08/19 12/08/19 12/08/19 12/08/19 08:49 09:00 12:00 12:00 Temp 36.4 Pulse 108 Resp 22 B/P (MAP) 150/99 (116) Pulse Ox 92 O2 Delivery Room Air Room Air Room Air Room Air 12/08/19 12/08/19 12/08/19 12/08/19 12:00 12:34 14:06 15:52 Temp 36.3 36.8 Pulse 106 109 100 Resp 20 22 B/P (MAP) 135/83 (100) 153/81 (105) Pulse Ox 90 90 94 O2 Delivery Room Air Room Air Nasal Cannula O2 Flow Rate 2.00 12/08/19 00:00 Intake Total 1940 ml Output Total 1775 ml Balance 165 ml Weight (Pounds): 358 Weight (Ounces): 1.0 Weight (Calculated Kilograms): 162.731001 Constitutional: AAO x 3 Respiratory: chest is bilaterally symmetric, lungs clear to auscultation Cardiovascular: irregularly irregular, tachycardia, S1 and S2 Gastrointestional: distended, audible bowel sounds Extremities: normal inspection, pedal edema Neurologic/Psychiatric: no motor/sensory deficits, alert, normal mood/affect, oriented x 3 Skin: normal color, warm/dry Results/Procedures: Labs Laboratory Tests 12/07/19 18:00: Blood Gas Puncture Site LT RAD, Blood Gas Patient Temperature 36.8, Arterial Blood pH 7.32*L, Arterial Blood Partial Pressure CO2 48H, Arterial Blood Partial Pressure O2 72L, Arterial Blood HCO3 24, Arterial Blood Total CO2 25.5, Arterial Blood Oxygen Saturation 92L, Arterial Blood Base Excess -1.4, Mike Test YES- POS, Blood Gas Ventilator Setting NO, Blood Gas Inspired Oxygen NA 12/07/19 20:11: Glucometer 306H 12/08/19 06:00: Glucometer 288H 12/08/19 08:30: Vancomycin Level Trough 25.3*H 12/08/19 10:49: Glucometer 234H 12/08/19 15:36: Glucometer 204H Microbiology 12/06/19 MRSA Screen - Final, Complete MRSA not isolated 12/06/19 Blood Culture - Preliminary, Resulted No growth 12/06/19 Urine Culture - Final, Complete NO GROWTH A/P: Assessment/Dx: Scrotal cellulitis, abscess, Meth abuse, Active smoker, Cardiomyopathy of unknown origin, Recent stroke, status post thrombolytics. Positive cardiac enzymes. DM, HTN, Hyperlipidemia, RBBB, LAFB, LVH on EKG. Plan: Scrotal swelling and cellulitis, defer to the primary team. Treatment with IV antibiotics. Meth abuse, strongly recommended to quit. Atrial flutter with 2-1 AV block. Refractory to medical therapy with IV Cardizem. Patient is on Eliquis. Cardioversion is recommended. 1 percent risk of stroke was discussed. Cardioversion was performed with anesthesia support. Transesophageal echocardiogram did not show any left atrial or left atrial appendage thrombus. Poor LV function. Continue Eliquis. Recent Acute stroke, status post thrombolytics, resolution. Will require rehabilitation. Previous admission showed Positive cardiac enzymes. Coronary angiography is contraindicated in an acute stroke for at least a month from the index event which was on 11/10/2019. Smoking, smoking cessation was strongly recommended. DM, defer to the primary team. HTN, aggressive blood pressure management. Hyperlipidemia, high-dose Lipitor therapy. RBBB, continue to follow. 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 LVH on EKG. Cardiomyopathy of unknown origin. Likely nonischemic. However patient had positive cardiac enzymes on recent admission. Therefore coronary angiography was recommended. However was delayed until end of November. Thank you for your consultation. Please call me if you have any questions. Monika Storm MD, FACP, FACC, FSCAI, FHRS, CCDS Interventional Cardiology Cardiac Electrophysiology Vascular Medicine and Endovascular Interventions Focused Exam Lactate Level 12/06/19 01:49: Lactic Acid Level 2.14*H 12/06/19 04:04: Lactic Acid Level 1.22 Time of Focused Exam: 02:40 Calvin STORM MD Dec 07, 2019 21:58
[2019-12-08] VITALS (7 sets, daily range): BP systolic 120–155; BP diastolic 71–99
[2019-12-08] MEDS: NOREPINEPHRINE 4 MG/250 ML 250 ML IV SCH ×3 (00:32→11:07)
[2019-12-08] MEDS: NS IV 500 ML 500 ML IV SCH (02:14)
[2019-12-08] MEDS: RT-ALBUTEROL/IPRATROPIUM 3 ML (DUONEB) VIAL INH SCH ×4 (02:45→21:59)
[2019-12-08] MEDS: PIPERACILLIN/TAZOBACTAM (BULK) 4.5 GM in NS (IVPB) 100 ML IV SCH ×3 (05:13→21:01)
[2019-12-08] MEDS: VASOPRESSIN INJECTION 20 UNIT in NORMAL SALINE 100 ML IV SCH (05:56)
[2019-12-08] MEDS: inSUlin ASPART (NovoLOG) 1 UNIT/0.01 ML (CHARGE PER UNIT) SC SCH ×4 (06:29→21:00)
[2019-12-08] MEDS ORDERED: TROUGH ORDER-PHARMACY XX NR (08:30)
--- NOTE | 2019-12-08 09:17 | Progress Note - Hospitalist ---
Subjective HPI/CC On Admission Date Seen by Provider: Dec 08, 2019 Time Seen by Provider: 09:09 Subjective/Events-last exam Patient underwent successful cardioversion yesterday he appears to be in sinus tachycardia around 110-120 will need to review his EKG to ensure that this is not flutter. He reports he still has some dyspnea with exertion but feeling better than yesterday. He denied night sweats chills or fever with decrease scrotal pain. Focused Exam Lactate Level 12/06/19 01:49: Lactic Acid Level 2.14*H 12/06/19 04:04: Lactic Acid Level 1.22 Time of Focused Exam: 02:40 Objective Exam Vital Signs Vital Signs Date Time Temp Pulse Resp B/P (MAP) Pulse Ox O2 Delivery O2 Flow Rate FiO2 12/08/19 08:49 Room Air 12/08/19 08:43 95 12/08/19 07:28 37.0 123 18 129/90 (103) 3.00 Capillary Refill : Less Than 3 Seconds General Appearance: No Apparent Distress, Obese Respiratory: No Accessory Muscle Use, No Respiratory Distress, Other (Diminished breath sounds posteriorly no wheezing rales or rhonchi appreciated.) Cardiovascular: Regular Rate, Rhythm, No Gallop, No Murmur, Tachycardia, Other (Trace bilateral pedal edema) Gastrointestinal: Normal Bowel Sounds, No Organomegaly, No Pulsatile Mass, Non Tender, Soft Results/Procedures Lab Patient resulted labs reviewed. Assessment/Plan Assessment and Plan Assess & Plan/Chief Complaint A/P 1. Suspect that acute orchitis is a little more likely than scrotal cellulitis. The patient has significant scrotal edema but the scrotum is not indurated too much edema and the patient is still too sensitive for testicular exam. There is minimal erythema present. Vancomycin trough level was high MRSA highly unlikely will discontinue vancomycin and continue Zosyn and transferred to the floor. Could consider testicular ultrasound beginning of the week as it might guide outpatient antibiotic therapy on discharge. 2. Atrial fibrillation with rapid ventricular response successful electrical cardioversion yesterday. Patient currently appears to be in sinus tachycardia heart rate 110-120 and is mildly hypertensive will add diltiazem 180 mg daily. If blood pressure will allow tomorrow consider resuming lisinopril and/or furosemide. 3. Type II diabetes we'll increase basal insulin as his blood sugars have been trending up. Clinical Quality Measures DVT/VTE Risk/Contraindication: Risk Factor Score Per Nursin RFS Level Per Nursing on Admit: 4+=Very High ALFREDO SHOOK MD Dec 08, 2019 09:17
[2019-12-08] MEDS: CLOPIDOGREL 75 MG (PLAVIX) TABLET PO SCH (09:34)
[2019-12-08] MEDS: APIXABAN 5 MG (ELIQUIS) TABLET PO SCH ×2 (09:35→20:12)
[2019-12-08] MEDS: HYDROcodone/APAP 5 MG/325 MG (LORTAB) TAB PO PRN ×2 (14:02→20:12)
--- NOTE | 2019-12-08 17:36 | Cardiology Progress Note ---
Cardiology SOAP Progress Note Subjective: No cardiac complaints. In sinus rhythm. Objective: I&O/Vital Signs 12/08/19 12/08/19 12/08/19 12/08/19 07:00 07:28 08:00 08:43 Temp 37.0 Pulse 122 123 Resp 18 B/P (MAP) 129/90 (103) Pulse Ox 94 95 O2 Delivery Nasal Cannula Room Air Room Air O2 Flow Rate 3.00 12/08/19 12/08/19 12/08/19 12/08/19 08:49 09:00 12:00 12:00 Temp 36.4 Pulse 108 Resp 22 B/P (MAP) 150/99 (116) Pulse Ox 92 O2 Delivery Room Air Room Air Room Air Room Air 12/08/19 12/08/19 12/08/19 12/08/19 12:00 12:34 14:06 15:52 Temp 36.3 36.8 Pulse 106 109 100 Resp 20 22 B/P (MAP) 135/83 (100) 153/81 (105) Pulse Ox 90 90 94 O2 Delivery Room Air Room Air Nasal Cannula O2 Flow Rate 2.00 12/08/19 00:00 Intake Total 1940 ml Output Total 1775 ml Balance 165 ml Weight (Pounds): 358 Weight (Ounces): 1.0 Weight (Calculated Kilograms): [id number] Constitutional: AAO x 3 Respiratory: chest is bilaterally symmetric, lungs clear to auscultation Cardiovascular: regular rate-rhythm, S1 and S2 Gastrointestional: distended, audible bowel sounds Extremities: normal inspection, pedal edema Neurologic/Psychiatric: no motor/sensory deficits, alert, normal mood/affect, oriented x 3 Skin: normal color, warm/dry Results/Procedures: Labs Laboratory Tests 12/07/19 18:00: Blood Gas Puncture Site LT RAD, Blood Gas Patient Temperature 36.8, Arterial Blood pH 7.32*L, Arterial Blood Partial Pressure CO2 48H, Arterial Blood Partial Pressure O2 72L, Arterial Blood HCO3 24, Arterial Blood Total CO2 25.5, Arterial Blood Oxygen Saturation 92L, Arterial Blood Base Excess -1.4, Mike Test YES- POS, Blood Gas Ventilator Setting NO, Blood Gas Inspired Oxygen NA 12/07/19 20:11: Glucometer 306H 12/08/19 06:00: Glucometer 288H 12/08/19 08:30: Vancomycin Level Trough 25.3*H 12/08/19 10:49: Glucometer 234H 12/08/19 15:36: Glucometer 204H Microbiology 12/06/19 MRSA Screen - Final, Complete MRSA not isolated 12/06/19 Blood Culture - Preliminary, Resulted No growth 12/06/19 Urine Culture - Final, Complete NO GROWTH A/P: Assessment/Dx: Scrotal cellulitis, abscess, Meth abuse, Active smoker, Cardiomyopathy of unknown origin, Recent stroke, status post thrombolytics. Positive cardiac enzymes. DM, HTN, Hyperlipidemia, RBBB, LAFB, LVH on EKG. Plan: Scrotal swelling and cellulitis, defer to the primary team. Treatment with IV antibiotics. Meth abuse, strongly recommended to quit. Atrial flutter with 2-1 AV block. Refractory to medical therapy with IV Cardizem. Patient is on Eliquis. Cardioversion is recommended. 1 percent risk of stroke was discussed. Cardioversion was performed with anesthesia support on 12/07/2019. Transesophageal echocardiogram did not show any left atrial or left atrial appendage thrombus. Poor LV function. Continue Eliquis. Currently in sinus rhythm. Recent Acute stroke, status post thrombolytics, resolution. Will require rehabilitation. Previous admission showed Positive cardiac enzymes. Coronary angiography is contraindicated in an acute stroke for at least a month from the index event which was on 11/10/2019. Smoking, smoking cessation was strongly recommended. DM, defer to the primary team. HTN, aggressive blood pressure management. Hyperlipidemia, high-dose Lipitor therapy. RBBB, continue to follow. 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 LVH on EKG. Cardiomyopathy of unknown origin. Likely nonischemic. However patient had positive cardiac enzymes on recent admission. Therefore coronary angiography was recommended. However was delayed until end of November. Thank you for your consultation. Please call me if you have any questions. Monika Storm MD, FACP, FACC, FSCAI, FHRS, CCDS Interventional Cardiology Cardiac Electrophysiology Vascular Medicine and Endovascular Interventions Focused Exam Lactate Level 12/06/19 01:49: Lactic Acid Level 2.14*H 12/06/19 04:04: Lactic Acid Level 1.22 Time of Focused Exam: 02:40 Calvin STORM MD Dec 08, 2019 17:36
[2019-12-09] VITALS (7 sets, daily range): BP systolic 130–155; BP diastolic 82–100
[2019-12-09] MEDS: LORazepam INJ 2 MG/ML (ATIVAN) VIAL IV PRN ×2 (00:50→15:31)
[2019-12-09] MEDS: RT-ALBUTEROL/IPRATROPIUM 3 ML (DUONEB) VIAL INH SCH ×4 (03:09→21:13)
[2019-12-09] MEDS: PIPERACILLIN/TAZOBACTAM (BULK) 4.5 GM in NS (IVPB) 100 ML IV SCH ×3 (05:04→21:27)
[2019-12-09] MEDS: HYDROcodone/APAP 5 MG/325 MG (LORTAB) TAB PO PRN ×3 (05:38→21:27)
[2019-12-09] MEDS: inSUlin ASPART (NovoLOG) 1 UNIT/0.01 ML (CHARGE PER UNIT) SC SCH ×4 (05:40→20:40)
[2019-12-09] MEDS: APIXABAN 5 MG (ELIQUIS) TABLET PO SCH ×2 (08:26→21:27)
[2019-12-09] MEDS: CLOPIDOGREL 75 MG (PLAVIX) TABLET PO SCH (08:26)
--- NOTE | 2019-12-09 08:40 | NUR ---
short run of SVT this AM noted by computer forensics technician. Dr Storm and Dr Inman Aware
--- NOTE | 2019-12-09 08:47 | Physician Query Clarification ---
PQ-Intro New Diagnosis Admission/Discharge Admission Date: Dec 06, 2019 at 02:45 Discharge Date: Dr. White The medical record reflects the following clinical scenario: History/Risk Factors: Acute orchitis/scrotal cellulitis Clinical Findings: WBC 9.2 to 11.1, T 36.5, P 133, Resp 18, BP 97/70, preliminary blood culture-no growth, Lactic acid 2.14. Treatment:IV Vancomycin HCI 1,000mg, Cefepime HCI 1,000mg. Dr. Obando, ED physician and Dr. Dorado documented sepsis. Question: What condition best reflects the above clinical scenario? Please document a response in the Progress Noter or Discharge Summary. 1. Severe sepsis. 2. Sepsis without severe sepsis. 3. No sepsis. 4. Other, with explanation of the clinical findings. 5. Clinically undetermined, no explanation for the clinical findings. PHYSICIAN RESPONSE What condition reflects above: 1 Please remember a lack of response to the above will prompt a phone page by CDI/Coding staff. In responding to this query, please exercise your independent professional judgment. The purpose of this communication is to more accurately reflect the complexity of your patients condition. The fact that a question is asked does not imply that any particular answer is desired or expected. Thank you for your timely response to this clarification. Requestors name: [ ] Phone # [ ] THIS PHYSICIAN QUERY FORM IS A PERMANENT PART OF THE MEDICAL RECORD ADILSON PEDROZA Dec 09, 2019 08:47 ALFREDO WHITE MD Dec 09, 2019 16:17
--- NOTE | 2019-12-09 09:05 | Physician Query Clarification ---
PQ-CHF Specificity Admission Date: Dec 06, 2019 at 02:45 Discharge Date: Dr. Dorado The medical record reflects the following clinical scenario: History/Risk Factors: Hypertension Likely non-ischemic cardiomyopathy Atrial fibrillation Clinical Findings: Echo: 12/06 echo EF 15-20%, BNP 772.8 Treatment: Injection 40 mg Lasix, Question: Can you further specify the acuity &/or type of CHF per the clinical indicators above? Please document a response in the Progress Notes or Discharge Summary. 1. Acuity: Acute, Chronic or Acute on Chronic 2. Type: Systolic, Diastolic or Systolic & Diastolic 3. Unspecified: CHF cannot be further specified regarding type or acuity 4. Other, with explanation of clinical findings 5. Clinically undetermined, no explanation for clinical findings PHYSICIAN RESPONSE Acuity: Acute on Chronic Type: Systolic Please remember a lack of response to the above will prompt a phone page by CDI/Coding staff. In responding to this query, please exercise your independent professional judgment. The purpose of this communication is to more accurately reflect the complexity of your patients condition. The fact that a question is asked does not imply that any particular answer is desired or expected. Thank you for your timely response to this clarification. Requestors name: Fiona Gary [facility] Phone # ext [phone] or [phone] THIS PHYSICIAN QUERY FORM IS A PERMANENT PART OF THE MEDICAL RECORD FIONA GARY Dec 09, 2019 09:05 ZARA DORADO MD Dec 11, 2019 15:19
[2019-12-09 10:13] LABS: BASOPHILS # (AUTO) 0.1 10^3/uL (0.0-0.1); BASOPHILS % (AUTO) 1 % (0-10); EOSINOPHILS # (AUTO) 0.1 10^3/uL (0.0-0.3); EOSINOPHILS % (AUTO) 1 % (0-10); HEMATOCRIT 37 % (40-54); LYMPHOCYTES # (AUTO) 1.1 X 10^3 (1.0-4.0); LYMPHOCYTES % (AUTO) 11 % (12-44); MEAN CORPUSCULAR HEMOGLOBIN 28 PG (25-34); MEAN CORPUSCULAR HGB CONC 29 G/DL (32-36); MEAN CORPUSCULAR VOLUME 94 FL (80-99); MEAN PLATELET VOLUME 10.5 FL (7.4-10.4); MONOCYTES # (AUTO) 0.9 X 10^3 (0.0-1.0); MONOCYTES % (AUTO) 9 % (0-12); NEUTROPHILS # (AUTO) 7.8 X 10^3 (1.8-7.8); NEUTROPHILS % (AUTO) 78 % (42-75); PLATELET COUNT 246 10^3/uL (130-400); RED CELL DISTRIBUTION WIDTH 15.8 % (10.0-14.5)
[2019-12-09 10:26] LABS: ALBUMIN 3.4 GM/DL (3.2-4.5); CHLORIDE 110 MMOL/L (98-107); POTASSIUM 4.2 MMOL/L (3.6-5.0); SODIUM 142 MMOL/L (135-145)
[2019-12-09 10:27] LABS: CALCIUM 8.4 MG/DL (8.5-10.1)
[2019-12-09 10:28] LABS: GLUCOSE 219 MG/DL (70-105)
[2019-12-09 10:29] LABS: TOTAL PROTEIN 6.2 GM/DL (6.4-8.2)
[2019-12-09 10:30] LABS: BILIRUBIN,TOTAL 0.4 MG/DL (0.1-1.0); CARBON DIOXIDE 23 MMOL/L (21-32)
[2019-12-09 10:32] LABS: ALKALINE PHOSPHATASE 50 U/L (40-136); GFR ESTIMATED > 60
[2019-12-09 10:33] LABS: BUN/CREATININE RATIO 21
[2019-12-09 10:35] LABS: ALANINE AMINOTRANSFERASE 9 U/L (0-55)
--- NOTE | 2019-12-09 11:33 | Progress Note - Hospitalist ---
Subjective HPI/CC On Admission Date Seen by Provider: Dec 09, 2019 Time Seen by Provider: 10:30 Subjective/Events-last exam Patient still having a lot of edema and pain in the scrotal area Will consult Dr. Tyler Patient does not ordinarily use oxygen at home Reviewed meds and labs Cardiology has already consulted Dr. Storm on board No other pain Meth use noted on drug screen Very poor hygiene Dirty legs and feet Review of Systems Pulmonary: Dyspnea Cardiovascular: Edema Focused Exam Lactate Level 12/09/19 10:06: Lactic Acid Level 0.86 Time of Focused Exam: 02:40 Lactic Acid Level Laboratory Tests Test 12/09/19 10:06 Lactic Acid Level 0.86 MMOL/L (0.50-2.00) Objective Exam Vital Signs Vital Signs Date Time Temp Pulse Resp B/P (MAP) Pulse Ox O2 Delivery O2 Flow Rate FiO2 12/09/19 09:10 89 Nasal Cannula 2.00 12/09/19 08:00 37.5 99 20 152/89 (110) 12/08/19 22:03 Capillary Refill : Less Than 3 Seconds General Appearance: No Apparent Distress, WD/WN, Chronically ill, Obese Respiratory: Chest Non Tender, Lungs Clear, No Accessory Muscle Use, No Respiratory Distress, Decreased Breath Sounds Cardiovascular: Regular Rate, Rhythm, No Edema, No Gallop, No JVD, No Murmur, Normal Peripheral Pulses Extremity: Pedal Edema Results/Procedures Lab Laboratory Tests 12/09/19 10:06 Patient resulted labs reviewed. Assessment/Plan Assessment and Plan Assess & Plan/Chief Complaint Assessment: Scrotal cellulitis Sepsis Meth use SVT episode Smoker Alcohol user Leucocytosis Edema Plan: Dr. Tyler consult IV antibiotics Cardiology consult DVT prophylaxis Clinical Quality Measures DVT/VTE Risk/Contraindication: Risk Factor Score Per Nursin RFS Level Per Nursing on Admit: 4+=Very High GAYATRI GILL DO Dec 09, 2019 11:33
--- NOTE | 2019-12-09 12:23 | Consultation - Surgery ---
History of Present Illness History of Present Illness Patient Consulted On(hilario/time) 12/09/19 12:11 Time Seen by Provider: 11:54 History of Present Illness Surgery asked to consult regarding scrotal swelling and pain. HPI per ED: Patient presents ER by private conveyance from home with chief com plaint of swelling of his penis and scrotum he just noticed last night while doing some fishing. He does not have any fevers or chills. He says he had a beer to drink. He recently had a stroke. He does not have any dysuria or discharge but he has not urinated since yesterday morning. He denies any nausea or headache cough shortness of air or chest pain. History of hypertension, h yperlipidemia, type 2 diabetes and stroke status post TPA November 10, 2019. Tobaccoism. Patient was post to follow-up with Dr. Storm outpatient for loop recorder. He is also to wear a life vest for his poor heart function however he says he does not feel comfortable wearing so he doesn't wear after the second day being home. Echocardiogram from 11/11/[address] Storm shows EF of 20-25% grade [address] Storm: This is a 54-year-old gentleman who I saw on November 11, 2019 for an acute stroke. He was given TPA. Negative carotids, negative telemetry. Possible cryptogenic stroke. However we found moderate to severe LV dysfunction on echocardiogram therefore oral anticoagulation was recommended. LifeVest also was recommended. However the patient has not been compliant with lifevest. He presented with pain and swelling in his perineal area, likely significant infect ion. He is an active smoker, drinks alcohol and recently used meth as well. He has history of hypertension, hyperlipidemia, type II diabetes. He was supposed to follow-up in my office for possible implantable loop recorder. Also coronary angiography was recommended and we were supposed to arrange it one month after the index event, i.e. on 12/10/2019. However patient did not follow-up in the office. He was found to be tachycardic. When I spoke to pt today he states scrotum hurts if he moves, but otherwise no pain. He is not sure if it has changed at all because he can't see it; doesn't think it is red. Allergies and Home Medications Allergies Coded Allergies: No Known Drug Allergies (Unverified , 02/26/14) Home Medications Apixaban 5 Mg Tablet, 5 MG PO BID, (Reported) Atorvastatin Calcium 80 Mg Tablet, 80 MG PO HS, (Reported) Clopidogrel Bisulfate 75 Mg Tablet, 75 MG PO DAILY, (Reported) Furosemide 40 Mg Tablet, 40 MG PO BID, (Reported) Lisinopril 20 Mg Tablet, 20 MG PO DAILY, (Reported) Metformin HCl 1,000 Mg Tablet, 1,000 MG PO BID, (Reported) Metoprolol Tartrate 50 Mg Tablet, 50 MG PO BID, (Reported) Potassium Chloride 20 Meq Tab.er.prt, 20 MEQ PO BID, (Reported) Patient Home Medication List Home Medication List Reviewed: Yes Past Ymnalyn-Mnlctv-Qznzww Hx Patient Social History Alcohol Use: Regular Use Number of Drinks Today: 1 Recreational Drug Use: No (denies, but urine drug screen positive for methamphetamine and THC 12/05/19) Type Used: Cigarettes Recent Foreign Travel: No Contact w/Someone Who Travel: No Recent Infectious Disease Expo: No Recent Hopitalizations: No Immunizations Up To Date Tetanus Booster (TDap): Unknown Seasonal Allergies Seasonal Allergies: No Surgeries History of Surgeries: No Respiratory History of Respiratory Disorde: No Respiratory Disorders: Sleep Apnea Cardiovascular History of Cardiac Disorders: Yes Cardiac Disorders: High Cholesterol, Hypertension Neurological History of Neurological Disord: Yes Neurological Disorders: Stroke, TIA Reproductive System Hx Reproductive Disorders: No Sexually Transmitted Disease: No HIV/AIDS: No Genitourinary History of Genitourinary Disor: No Gastrointestinal History of Gastrointestinal Di: No Musculoskeletal History of Musculoskeletal Dis: Yes Musculoskeletal Disorders: Gout Endocrine History of Endocrine Disorders: Yes (TYPE 2 DM) Endocrine Disorders: Diabetes, Insulin dep HEENT Loss of Vision: Denies Hearing Impairment: Denies Cancer History of Cancer: No Psychosocial History of Psychiatric Problem: No Integumentary History of Skin or Integumenta: No Blood Transfusions History of Blood Disorders: No Adverse Reaction to a Blood Tr: No Family Medical History Significant Family History: Heart Disease, Cancer, Diabetes, Hypertension Family Medial History: Coronary thrombosis 19 FATHER Diabetes mellitus G8 BROTHER FH: lung cancer 19 MOTHER (MOTHER FROM LUNG CA) Hypercholesterolemia 19 FATHER Myocardial infarction 19 FATHER ( FROM [place]) Review of Systems-General Constitutional: malaise, weakness EENTM: No blurred vision, No mouth pain, No mouth swelling, No epistaxis Respiratory: No cough; dyspnea on exertion, short of breath; No stridor Cardiovascular: chest pain, Hx of Intervention, palpitations Gastrointestinal: No abdominal pain, No jaundice, No nausea, No vomiting Genitourinary: dysuria; No hematuria; hesitancy, incontinence Musculoskeletal: joint pain, joint swelling, muscle stiffness, muscle cramps Skin: change in color; No change in hair/nails; dryness, lesions Psychiatric/Neurological: Denies Anxiety, Denies Depressed; Pre-Existing Deficit, Weakness, Other (hx of CVA) Physical Exam-General Problems Physical Exam Vital Signs Vital Signs - First Documented 12/06/19 12/06/19 01:38 21:53 Temp 36.5 Pulse 133 Resp 18 B/P (MAP) 97/70 (79) Pulse Ox 98 O2 Delivery Room Air O2 Flow Rate 2.00 Capillary Refill : Less Than 3 Seconds General Appearance: no apparent distress, obese Eyes: Bilateral Eye PERRL, Bilateral Eye EOMI HEENT: pharynx normal; No scleral icterus (R), No scleral icterus (L) Neck: non-tender, supple Respiratory: chest non-tender, lungs clear, no respiratory distress, no accessory muscle use Cardiovascular: tachycardia, systolic murmur Gastrointestinal: soft, no organomegaly, hernia (incarcerated umbilical hernia) Genital/Rectal: other (large scrotal edema and penile edema, cannot even see penis (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 Testicles are very tender to palpation but cannot see any erythema or obvious signs of infection) Back: no CVA tenderness, no vertebral tenderness Extremities: no calf tenderness, other (pt's feet and toes are black with dirt, he has edema tense skin with some areas of ulcers and chronic venous stasis changes) Neurologic/Psychiatric: loading manager II-XII nml as tested, alert, normal mood/affect, oriented x 3 Skin: normal color, warm/dry Lymphatic: no adenopathy (neck, axilla or groin) Data Review Labs Laboratory Tests 12/08/19 15:36: Glucometer 204H 12/08/19 20:29: Glucometer 397H 12/09/19 05:40: Glucometer 186H 12/09/19 10:06: White Blood Count 10.0, Red Blood Count 4.00L, Hemoglobin 11.0L, Hematocrit 37L, Mean Corpuscular Volume 94, Mean Corpuscular Hemoglobin 28, Mean Corpuscular Hemoglobin Concent 29L, Red Cell Distribution Width 15.8H, Platelet Count 246, Mean Platelet Volume 10.5H, Neutrophils (%) (Auto) 78H, Lymphocytes (%) (Auto) 11L, Monocytes (%) (Auto) 9, Eosinophils (%) (Auto) 1, Basophils (%) (Auto) 1, Neutrophils # (Auto) 7.8, Lymphocytes # (Auto) 1.1, Monocytes # (Auto) 0.9, Eosinophils # (Auto) 0.1, Basophils # (Auto) 0.1, Sodium Level 142, Potassium Level 4.2, Chloride Level 110H, Carbon Dioxide Level 23, Anion Gap 9, Blood Urea Nitrogen 17, Creatinine 0.80, Estimat Glomerular Filtration Rate > 60, BUN/Creatinine Ratio 21, Glucose Level 219H, Lactic Acid Level 0.86, Calcium Level 8.4L, Corrected Calcium 8.9, Total Bilirubin 0.4, Aspartate Amino Transf (AST/SGOT) 9, Alanine Aminotransferase (ALT/SGPT) 9, Alkaline Phosphatase 50, Total Protein 6.2L, Albumin 3.4, Procalcitonin 0.07 12/09/19 11:48: Glucometer 187H Microbiology 12/06/19 MRSA Screen - Final, Complete MRSA not isolated 12/06/19 Blood Culture - Preliminary, Resulted No growth 12/06/19 Urine Culture - Final, Complete NO GROWTH Assessment/Plan Assessment/Plan Assessment/Plan Scrotal Swelling and Pain Incarcerated Umbilical Hernia Morbid Obesity Hx of CVA, recent Cardioversion Plan is to get US of scrotum and make sure there is not an abscess that needs to be drained. Elevating the scrotum may help (to drain some edema); however, it is very tender and it may be hard to do this. Umbilical hernia has "been there forever"; per patient and can therefore get taken care of at his convenience. Clinical Quality Measures DVT/VTE Risk/Contraindication: Risk Factor Score Per Nursin RFS Level Per Nursing on Admit: 4+=Very High NENA GIBBS DO Dec 09, 2019 12:23
--- NOTE | 2019-12-09 14:08 | Diagnostic Imaging Report ---
PROCEDURE: US Scrotum. TECHNIQUE: Multiple real-time grayscale images were obtained over the scrotum in various projections bilaterally. INDICATION: Testicular swelling. FINDINGS: Right testicle measures 4.9 x 2.4 x 2.5 cm and the left testicle measures 5.0 x 2.6 x 2.9 cm. There is marked scrotal wall thickening and edema, limiting evaluation of the testes. No discrete testicular mass is identified. Blood flow is detected in the left testicle. No definite blood flow could be detected in the right testicle, however again study is somewhat limited due to wall edema. The right testicle morphologically appears homogeneous and unremarkable. No definite hydrocele or varicocele is seen. Epididymides cannot be well visualized due to edema. IMPRESSION: Marked scrotal wall thickening and edema, limiting evaluation of the testes. No discrete testicular mass is identified. Blood flow evaluation is limited, although blood flow was visualized in the left testicle and not visualized on the right. No hydrocele or varicocele was detected. Dictated by: Dictated on workstation # [id number]
--- NOTE | 2019-12-09 14:09 | NUR ---
CM/SS follow up. The patient was in his room and brother just got done visiting and bringing him lunch. The patient reports that he is starting to feel a little better today. CM/SS addressed life vest and methamphetamine use with the patient. He reports that he is refusing to wear the Life Vest and reports he understands the risk can be life threatening. He states it is due to "not being him" and "not comfortable". The patient reports that he uses Methamphetamines once a month "if that" and does not believe he has a problem with use. CM/SS informed him of the dangers of using with his medical conditions. He verbalized understanding. CM/SS asked if patient would like resources for substance use treatment or mental health resources. The patient stated no and reported he can do it on his own. No further needs at this time.
[2019-12-09] MEDS: NICOTINE 21 MG (NICODERM) PATCH TD SCH (15:30)
--- NOTE | 2019-12-09 15:30 | NUR ---
RECEIVED REPORT FROM ANGELA ALICEA. PT. ALERT AND COOPERATIVE. SKIN W/D. LOWER EXT. DISCOLORED AND SWOLLEN.
--- NOTE | 2019-12-09 17:27 | Cardiology Progress Note ---
Cardiology SOAP Progress Note Subjective: Brief episode of SVT this morning. Objective: I&O/Vital Signs 12/09/19 12/09/19 12/09/19 12/09/19 06:38 08:00 08:00 09:00 Temp 37.5 Pulse 98 99 Resp 20 B/P (MAP) 152/89 (110) Pulse Ox 94 O2 Delivery Room Air Nasal Cannula Room Air O2 Flow Rate 2.00 2.00 12/09/19 12/09/19 12/09/19 12/09/19 09:10 12:00 12:00 12:37 Temp 36.5 Pulse 96 97 Resp 20 B/P (MAP) 150/91 (110) Pulse Ox 89 94 O2 Delivery Nasal Cannula Nasal Cannula Room Air O2 Flow Rate 2.00 2.00 2.00 12/09/19 12/09/19 15:18 15:47 Temp 36.9 Pulse 96 Resp 20 B/P (MAP) 147/90 (109) Pulse Ox 98 97 O2 Delivery Nasal Cannula Nasal Cannula O2 Flow Rate 4.00 4.00 12/09/19 00:00 Intake Total 1460 ml Output Total 1050 ml Balance 410 ml Weight (Pounds): 358 Weight (Ounces): 1.0 Weight (Calculated Kilograms): 162.964964 Constitutional: AAO x 3 Respiratory: chest is bilaterally symmetric, lungs clear to auscultation Cardiovascular: regular rate-rhythm, S1 and S2 Gastrointestional: distended, audible bowel sounds Genital/Rectal: other (large scrotal edema and penile edema, cannot even see penis (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 Testicles are very ten xavier to palpation but cannot see any erythema or obvious signs of infection) Extremities: normal inspection, pedal edema Neurologic/Psychiatric: no motor/sensory deficits, alert, normal mood/affect, oriented x 3 Skin: normal color, warm/dry Results/Procedures: Labs Laboratory Tests 12/08/19 20:29: Glucometer 397H 12/09/19 05:40: Glucometer 186H 12/09/19 10:06: White Blood Count 10.0, Red Blood Count 4.00L, Hemoglobin 11.0L, Hematocrit 37L, Mean Corpuscular Volume 94, Mean Corpuscular Hemoglobin 28, Mean Corpuscular Hemoglobin Concent 29L, Red Cell Distribution Width 15.8H, Platelet Count 246, Mean Platelet Volume 10.5H, Neutrophils (%) (Auto) 78H, Lymphocytes (%) (Auto) 11L, Monocytes (%) (Auto) 9, Eosinophils (%) (Auto) 1, Basophils (%) (Auto) 1, Neutrophils # (Auto) 7.8, Lymphocytes # (Auto) 1.1, Monocytes # (Auto) 0.9, Eosinophils # (Auto) 0.1, Basophils # (Auto) 0.1, Sodium Level 142, Potassium Level 4.2, Chloride Level 110H, Carbon Dioxide Level 23, Anion Gap 9, Blood Urea Nitrogen 17, Creatinine 0.80, Estimat Glomerular Filtration Rate > 60, BUN/Creatinine Ratio 21, Glucose Level 219H, Lactic Acid Level 0.86, Calcium Level 8.4L, Corrected Calcium 8.9, Total Bilirubin 0.4, Aspartate Amino Transf (AST/SGOT) 9, Alanine Aminotransferase (ALT/SGPT) 9, Alkaline Phosphatase 50, Total Protein 6.2L, Albumin 3.4, Procalcitonin 0.07 12/09/19 11:48: Glucometer 187H 12/09/19 15:53: Glucometer 334H Microbiology 12/06/19 MRSA Screen - Final, Complete MRSA not isolated 12/06/19 Blood Culture - Preliminary, Resulted No growth 12/06/19 Urine Culture - Final, Complete NO GROWTH A/P: Assessment/Dx: Scrotal cellulitis, abscess, Meth abuse, Active smoker, Cardiomyopathy of unknown origin, Recent stroke, status post thrombolytics. Positive cardiac enzymes. DM, HTN, Hyperlipidemia, RBBB, LAFB, LVH on EKG. Plan: Scrotal swelling and cellulitis, defer to the primary team. Treatment with IV antibiotics. Meth abuse, strongly recommended to quit. Atrial flutter with 2-1 AV block. Refractory to medical therapy with IV Cardizem. Patient is on Eliquis. Cardioversion is recommended. 1 percent risk of stroke was discussed. Cardioversion was performed with anesthesia support on 12/07/2019. Transesophageal echocardiogram did not show any left atrial or left atrial appendage thrombus. Poor LV function. Continue Eliquis. Currently in sinus rhythm. I briefly discussed about typical flutter ablation. Recent Acute stroke, status post thrombolytics, resolution. Will require rehabilitation. Previous admission showed Positive cardiac enzymes. Coronary angiography is contraindicated in an acute stroke for at least a month from the index event which was on 11/10/2019. I briefly discussed with the patient about coronary angiography before discharge. Smoking, smoking cessation was strongly recommended. DM, defer to the primary team. HTN, aggressive blood pressure management. Hyperlipidemia, high-dose Lipitor therapy. RBBB, continue to follow. 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 LVH on EKG. Cardiomyopathy of unknown origin. Likely nonischemic. However patient had positive cardiac enzymes on recent admission. Therefore coronary angiography was recommended. However was delayed until end of November. Thank you for your consultation. Please call me if you have any questions. Monika Storm MD, FACP, FACC, FSCAI, FHRS, CCDS Interventional Cardiology Cardiac Electrophysiology Vascular Medicine and Endovascular Interventions Focused Exam Lactate Level 12/09/19 10:06: Lactic Acid Level 0.86 Time of Focused Exam: 02:40 Calvin STORM MD Dec 09, 2019 17:27
--- NOTE | 2019-12-09 17:30 | NUR ---
DR. ROQUE HERE. INFORMATION ON HEART CATH AND HEART ABLATION GIVEN TO PT. PER DR. ROQUE'S REQUEST.
[2019-12-10] VITALS: BP 121/80
[2019-12-10] MEDS: RT-ALBUTEROL/IPRATROPIUM 3 ML (DUONEB) VIAL INH SCH ×4 (02:30→21:45)
[2019-12-10 04:00] VITALS: BP 166/95
[2019-12-10] MEDS: HYDROcodone/APAP 5 MG/325 MG (LORTAB) TAB PO PRN ×2 (04:11→11:19)
[2019-12-10] MEDS: PIPERACILLIN/TAZOBACTAM (BULK) 4.5 GM in NS (IVPB) 100 ML IV SCH ×3 (04:13→19:40)
[2019-12-10 05:37] LABS: BASOPHILS # (AUTO) 0.1 10^3/uL (0.0-0.1); BASOPHILS % (AUTO) 1 % (0-10); EOSINOPHILS # (AUTO) 0.2 10^3/uL (0.0-0.3); EOSINOPHILS % (AUTO) 2 % (0-10); HEMATOCRIT 39 % (40-54); HEMOGLOBIN 11.5 G/DL (13.3-17.7); LYMPHOCYTES % (AUTO) 12 % (12-44); MEAN CORPUSCULAR HEMOGLOBIN 27 PG (25-34); MEAN CORPUSCULAR HGB CONC 30 G/DL (32-36); MEAN CORPUSCULAR VOLUME 92 FL (80-99); MEAN PLATELET VOLUME 10.5 FL (7.4-10.4); MONOCYTES # (AUTO) 0.6 X 10^3 (0.0-1.0); MONOCYTES % (AUTO) 7 % (0-12); NEUTROPHILS % (AUTO) 79 % (42-75); PLATELET COUNT 248 10^3/uL (130-400); RED CELL DISTRIBUTION WIDTH 15.2 % (10.0-14.5); WHITE BLOOD COUNT 8.8 10^3/uL (4.3-11.0)
[2019-12-10 05:51] LABS: ALBUMIN 3.4 GM/DL (3.2-4.5); CHLORIDE 109 MMOL/L (98-107); POTASSIUM 3.9 MMOL/L (3.6-5.0); SODIUM 142 MMOL/L (135-145)
[2019-12-10 05:52] LABS: CALCIUM 8.6 MG/DL (8.5-10.1)
[2019-12-10 05:54] LABS: GLUCOSE 163 MG/DL (70-105); TOTAL PROTEIN 6.3 GM/DL (6.4-8.2)
[2019-12-10] MEDS: inSUlin ASPART (NovoLOG) 1 UNIT/0.01 ML (CHARGE PER UNIT) SC SCH ×4 (05:54→21:10)
[2019-12-10 05:55] LABS: BILIRUBIN,TOTAL 0.5 MG/DL (0.1-1.0); CARBON DIOXIDE 23 MMOL/L (21-32)
[2019-12-10 05:57] LABS: ALKALINE PHOSPHATASE 55 U/L (40-136); CREATININE SERUM 0.76 MG/DL (0.60-1.30); GFR ESTIMATED > 60
[2019-12-10 05:58] LABS: BUN/CREATININE RATIO 21
[2019-12-10 06:00] LABS: ALANINE AMINOTRANSFERASE 11 U/L (0-55)
[2019-12-10 08:00] VITALS: BP 156/99
[2019-12-10] MEDS: CLOPIDOGREL 75 MG (PLAVIX) TABLET PO SCH (08:57)
[2019-12-10] MEDS: NICOTINE PATCH REMOVAL TP SCH (08:57)
[2019-12-10] MEDS: NICOTINE 21 MG (NICODERM) PATCH TD SCH (08:57)
[2019-12-10] MEDS: APIXABAN 5 MG (ELIQUIS) TABLET PO SCH ×2 (08:57→21:09)
--- NOTE | 2019-12-10 09:00 | NUR ---
Patient encouraged to get up, move around, and shower this AM. patient refused stating "there's no need when I'm not going anywhere, ill shower and move around when I go home"
--- NOTE | 2019-12-10 10:41 | Progress Note - Hospitalist ---
Subjective HPI/CC On Admission Date Seen by Provider: Dec 10, 2019 Time Seen by Provider: 10:00 Subjective/Events-last exam Pt about the same Doesn't move around much On Lovenox for DVT prophylaxis IV antibiotics CT scan did not reveal any abscess Review of Systems General: Fatigue, Malaise Cardiovascular: Edema Focused Exam Lactate Level 12/09/19 10:06: Lactic Acid Level 0.86 Time of Focused Exam: 02:40 Objective Exam Vital Signs Vital Signs Date Time Temp Pulse Resp B/P (MAP) Pulse Ox O2 Delivery O2 Flow Rate FiO2 12/10/19 16:14 36.2 98 17 162/84 (110) 94 Nasal Cannula 4.00 12/08/19 22:03 Capillary Refill : Less Than 3 Seconds General Appearance: No Apparent Distress, WD/WN, Chronically ill, Obese Respiratory: Chest Non Tender, Lungs Clear, Normal Breath Sounds, No Accessory Muscle Use, No Respiratory Distress Cardiovascular: Regular Rate, Rhythm, No Gallop, No JVD, No Murmur, Normal Peripheral Pulses Extremity: Pedal Edema Results/Procedures Lab Laboratory Tests 12/10/19 05:23 Patient resulted labs reviewed. Assessment/Plan Assessment and Plan Assess & Plan/Chief Complaint Assessment: Scrotal cellulitis Sepsis Meth use SVT episode Smoker Alcohol user Leucocytosis Edema Plan: Dr. Tyler consult IV antibiotics Cardiology consult DVT prophylaxis Clinical Quality Measures DVT/VTE Risk/Contraindication: Risk Factor Score Per Nursin RFS Level Per Nursing on Admit: 4+=Very High GAYATRI GILL DO Dec 10, 2019 10:41
[2019-12-10 12:00] VITALS: BP 141/92
--- NOTE | 2019-12-10 13:58 | NUR ---
"RD ASSESSMENT PMHx: HTN; HLD; stroke; DM; TIA; methamphetamine use/abuse PT INTERACTION: Pt was awake and pleasant during nutrition follow-up. Pt states he has been eating well since last assessment. Note avg PO intake 88% x4d, per chart review. Pt states no issues with nausea, vomiting, constipation, or diarrhea since last assessment. Pt states last BM was 2d ago. Note pt currently not on bowel regimen per chart review. ABNORMAL NUTRITION-RELATED LAB VALUES LOW: Pro 6.3 HIGH: Cl 109; glu 163 Est. kcal needs: 0183-4528 kcal | 15-18 kcal/kg Est. Pro needs: 114-143 g Pro | 0.8-1.0 g Pro/kg PES STATEMENT: Given current intake, no nutrition diagnosis at this time (NO-1.1) INTERVENTION: Continue with current diet order of CHO 60g/m 0snack diet. Offered diet education on DM management, but pt declined. Will attempt to offer again prior to discharge. Will continue to follow and reassess as pt needs, intake, and status change. MONITOR/EVALUATE: PO Intake; Plan of Care; Hydration Status; Weight Status; Lab Values Melo Guerra, MS, RD, LD"
--- NOTE | 2019-12-10 14:44 | NUR ---
PT IS SLEEPING AND WOULD LIKE TO CONTINUE TO SLEEP. PT IN NO RESPIRATORY DISTRESS. Addendum: 12/10/19 at 1445 by AGATA CHI RT Amended: Links added.
[2019-12-10] MEDS ORDERED: inSUlin ASPART (NovoLOG) 1 UNIT/0.01 ML (CHARGE PER UNIT) SC SCH (16:00)
[2019-12-10 16:14] VITALS: BP 162/84
--- NOTE | 2019-12-10 16:33 | Cardiology Progress Note ---
Cardiology SOAP Progress Note Subjective: No cardiac complaints. Objective: I&O/Vital Signs 12/10/19 12/10/19 12/10/19 12/10/19 06:49 08:00 09:00 10:22 Temp 36.2 Pulse 102 64 Resp 22 B/P (MAP) 156/99 (118) Pulse Ox 96 O2 Delivery Nasal Cannula Room Air Nasal Cannula O2 Flow Rate 4.00 4.00 12/10/19 12/10/19 12/10/19 12/10/19 10:22 12:00 13:00 16:14 Temp 36.3 36.2 Pulse 114 99 98 Resp 24 17 B/P (MAP) 141/92 (108) 162/84 (110) Pulse Ox 93 97 94 O2 Delivery Nasal Cannula Nasal Cannula Nasal Cannula O2 Flow Rate 4.00 4.00 4.00 12/10/19 00:00 Intake Total 1860 ml Output Total 600 ml Balance 1260 ml Weight (Pounds): 358 Weight (Ounces): 1.0 Weight (Calculated Kilograms): 162.193941 Constitutional: AAO x 3 Respiratory: chest is bilaterally symmetric, lungs clear to auscultation Cardiovascular: regular rate-rhythm, S1 and S2 Gastrointestional: distended, audible bowel sounds Genital/Rectal: other (large scrotal edema and penile edema, cannot even see penis (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 Testicles are very tender to palpation but cannot see any erythema or obvious signs of infection) Extremities: normal inspection, pedal edema Neurologic/Psychiatric: no motor/sensory deficits, alert, normal mood/affect, oriented x 3 Skin: normal color, warm/dry Results/Procedures: Labs Laboratory Tests 12/09/19 20:30: Glucometer 194H 12/10/19 05:23: White Blood Count 8.8, Red Blood Count 4.19L, Hemoglobin 11.5L, Hematocrit 39L, Mean Corpuscular Volume 92, Mean Corpuscular Hemoglobin 27, Mean Corpuscular Hemoglobin Concent 30L, Red Cell Distribution Width 15.2H, Platelet Count 248, Mean Platelet Volume 10.5H, Neutrophils (%) (Auto) 79H, Lymphocytes (%) (Auto) 12, Monocytes (%) (Auto) 7, Eosinophils (%) (Auto) 2, Basophils (%) (Auto) 1, Neutrophils # (Auto) 7.0, Lymphocytes # (Auto) 1.0, Monocytes # (Auto) 0.6, Eosinophils # (Auto) 0.2, Basophils # (Auto) 0.1, Sodium Level 142, Potassium Level 3.9, Chloride Level 109H, Carbon Dioxide Level 23, Anion Gap 10, Blood Urea Nitrogen 16, Creatinine 0.76, Estimat Glomerular Filtration Rate > 60, BUN/Creatinine Ratio 21, Glucose Level 163H, Calcium Level 8.6, Corrected Calcium 9.1, Total Bilirubin 0.5, Aspartate Amino Transf (AST/SGOT) 10, Alanine Aminotransferase (ALT/SGPT) 11, Alkaline Phosphatase 55, Total Protein 6.3L, Albumin 3.4 12/10/19 05:54: Glucometer 153H 12/10/19 11:34: Glucometer 403*H 12/10/19 15:46: Glucometer 338H Microbiology 12/06/19 MRSA Screen - Final, Complete MRSA not isolated 12/06/19 Blood Culture - Preliminary, Resulted No growth 12/06/19 Urine Culture - Final, Complete NO GROWTH A/P: Assessment/Dx: Scrotal cellulitis, abscess, Meth abuse, Active smoker, Cardiomyopathy of unknown origin, Recent stroke, status post thrombolytics. Positive cardiac enzymes. DM, HTN, Hyperlipidemia, RBBB, LAFB, LVH on EKG. Plan: Plan to do coronary angiography and atrial flutter ablation this . However tomorrow we will examine the groin area to make sure there is no cellul itis in the areas that we need to gain access. Scrotal swelling and cellulitis, defer to the primary team. Treatment with IV antibiotics. Meth abuse, strongly recommended to quit. Atrial flutter with 2-1 AV block. Refractory to medical therapy with IV Cardizem. Patient is on Eliquis. Cardioversion is recommended. 1 percent risk of stroke was discussed. Cardioversion was performed with anesthesia support on 12/07/2019. Transesophageal echocardiogram did not show any left atrial or left atrial appendage thrombus. Poor LV function. Continue Eliquis. Currently in sinus rhythm. I briefly discussed about typical flutter ablation. Recent Acute stroke, status post thrombolytics, resolution. Will require rehabilitation. Previous admission showed Positive cardiac enzymes. Coronary angiography is contraindicated in an acute stroke for at least a month from the index event which was on 11/10/2019. I briefly discussed with the patient about coronary angiography before discharge. Smoking, smoking cessation was strongly recommended. DM, defer to the primary team. HTN, aggressive blood pressure management. Hyperlipidemia, high-dose Lipitor therapy. RBBB, continue to follow. 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 LVH on EKG. Cardiomyopathy of unknown origin. Likely nonischemic. However patient had positive cardiac enzymes on recent admission. Therefore coronary angiography was recommended. However was delayed until end of November. Thank you for your consultation. Please call me if you have any questions. Monika Storm MD, FACP, FACC, FSCAI, FHRS, CCDS Interventional Cardiology Cardiac Electrophysiology Vascular Medicine and Endovascular Interventions Focused Exam Lactate Level 12/09/19 10:06: Lactic Acid Level 0.86 Time of Focused Exam: 02:40 Calvin STORM MD Dec 10, 2019 16:33
[2019-12-10 20:48] VITALS: BP 158/88
[2019-12-11 00:05] VITALS: BP 147/91
[2019-12-11] MEDS: RT-ALBUTEROL/IPRATROPIUM 3 ML (DUONEB) VIAL INH SCH ×4 (01:47→21:16)
[2019-12-11 04:00] VITALS: BP 156/96
[2019-12-11] MEDS: inSUlin ASPART (NovoLOG) 1 UNIT/0.01 ML (CHARGE PER UNIT) SC SCH ×4 (05:32→20:57)
[2019-12-11 05:54] LABS: BASOPHILS # (AUTO) 0.1 10^3/uL (0.0-0.1); BASOPHILS % (AUTO) 1 % (0-10); EOSINOPHILS # (AUTO) 0.2 10^3/uL (0.0-0.3); EOSINOPHILS % (AUTO) 3 % (0-10); HEMATOCRIT 40 % (40-54); HEMOGLOBIN 11.8 G/DL (13.3-17.7); LYMPHOCYTES % (AUTO) 11 % (12-44); MEAN CORPUSCULAR HEMOGLOBIN 27 PG (25-34); MEAN CORPUSCULAR HGB CONC 30 G/DL (32-36); MEAN CORPUSCULAR VOLUME 92 FL (80-99); MEAN PLATELET VOLUME 10.1 FL (7.4-10.4); MONOCYTES # (AUTO) 0.7 X 10^3 (0.0-1.0); MONOCYTES % (AUTO) 7 % (0-12); NEUTROPHILS # (AUTO) 7.4 X 10^3 (1.8-7.8); NEUTROPHILS % (AUTO) 79 % (42-75); PLATELET COUNT 276 10^3/uL (130-400); RED CELL DISTRIBUTION WIDTH 15.5 % (10.0-14.5); WHITE BLOOD COUNT 9.3 10^3/uL (4.3-11.0)
[2019-12-11 06:07] LABS: ALBUMIN 3.5 GM/DL (3.2-4.5)
[2019-12-11 06:08] LABS: CHLORIDE 109 MMOL/L (98-107); POTASSIUM 4.1 MMOL/L (3.6-5.0); SODIUM 141 MMOL/L (135-145)
[2019-12-11 06:09] LABS: CALCIUM 8.8 MG/DL (8.5-10.1)
[2019-12-11 06:10] LABS: GLUCOSE 115 MG/DL (70-105); TOTAL PROTEIN 6.5 GM/DL (6.4-8.2)
[2019-12-11 06:11] LABS: CARBON DIOXIDE 24 MMOL/L (21-32)
[2019-12-11 06:12] LABS: BILIRUBIN,TOTAL 0.4 MG/DL (0.1-1.0)
[2019-12-11 06:13] LABS: ALKALINE PHOSPHATASE 54 U/L (40-136)
[2019-12-11 06:14] LABS: CREATININE SERUM 0.72 MG/DL (0.60-1.30); GFR ESTIMATED > 60
[2019-12-11 06:15] LABS: BUN/CREATININE RATIO 21
[2019-12-11 06:16] LABS: ALANINE AMINOTRANSFERASE 11 U/L (0-55)
[2019-12-11 08:00] VITALS: BP 146/89
[2019-12-11] MEDS: APIXABAN 5 MG (ELIQUIS) TABLET PO SCH ×2 (08:29→20:56)
[2019-12-11] MEDS: NICOTINE 21 MG (NICODERM) PATCH TD SCH (08:29)
[2019-12-11] MEDS: NICOTINE PATCH REMOVAL TP SCH (08:29)
[2019-12-11] MEDS: CLOPIDOGREL 75 MG (PLAVIX) TABLET PO SCH (08:29)
--- NOTE | 2019-12-11 10:41 | Progress Note - Hospitalist ---
Subjective HPI/CC On Admission Date Seen by Provider: Dec 11, 2019 Time Seen by Provider: 10:00 Subjective/Events-last exam Pt having an atrial ablation by Dr. Storm tomorrow Antibiotics maintained for scrotal cellulitis Sepsis no longer an issue Labs remain normal Constipation noted but declines any laxatives Not on home O2 but requiring it here Review of Systems General: Fatigue Musculoskeletal: leg pain Focused Exam Lactate Level 12/09/19 10:06: Lactic Acid Level 0.86 Time of Focused Exam: 02:40 Objective Exam Vital Signs Vital Signs Date Time Temp Pulse Resp B/P (MAP) Pulse Ox O2 Delivery O2 Flow Rate FiO2 12/11/19 20:02 36.8 105 20 147/86 (106) 97 OxyMask 8.00 12/08/19 22:03 Capillary Refill : Less Than 3 Seconds General Appearance: No Apparent Distress, WD/WN, Chronically ill, Obese Respiratory: Chest Non Tender, Lungs Clear, Normal Breath Sounds, No Accessory Muscle Use, No Respiratory Distress Cardiovascular: Regular Rate, Rhythm, No Edema, No Gallop, No JVD, No Murmur, Normal Peripheral Pulses Results/Procedures Lab Laboratory Tests 12/11/19 05:45 Patient resulted labs reviewed. Assessment/Plan Assessment and Plan Assess & Plan/Chief Complaint Assessment: Scrotal cellulitis Sepsis Meth use SVT episode Smoker Alcohol user Leucocytosis Edema Plan: Dr. Tyler consult IV antibiotics Cardiology consult DVT prophylaxis Ablation tomorrow Clinical Quality Measures DVT/VTE Risk/Contraindication: Risk Factor Score Per Nursin RFS Level Per Nursing on Admit: 4+=Very High GAYATRI GILL DO Dec 11, 2019 10:41
[2019-12-11 12:00] VITALS: BP 159/94
--- NOTE | 2019-12-11 12:44 | Cardiology Progress Note ---
Cardiology SOAP Progress Note Subjective: No current cardiac complaints. Objective: I&O/Vital Signs 12/11/19 12/11/19 12/11/19 12/11/19 01:00 04:00 07:05 07:29 Temp 36.9 Pulse 100 102 109 Resp 22 B/P (MAP) 156/96 (116) Pulse Ox 93 92 O2 Delivery Nasal Cannula Nasal Cannula O2 Flow Rate 4.00 4.00 12/11/19 12/11/19 08:00 09:00 Temp 36.4 Pulse 78 Resp 22 B/P (MAP) 146/89 (108) Pulse Ox 97 O2 Delivery Nasal Cannula Room Air O2 Flow Rate 4.00 12/11/19 00:00 Intake Total 2231 ml Output Total 850 ml Balance 1381 ml Weight (Pounds): 358 Weight (Ounces): 1.0 Weight (Calculated Kilograms): 162.786142 Constitutional: AAO x 3 Respiratory: chest is bilaterally symmetric, lungs clear to auscultation Cardiovascular: regular rate-rhythm, S1 and S2 Gastrointestional: distended, audible bowel sounds Genital/Rectal: other (large scrotal edema and penile edema, cannot even see penis (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 Testicles are very tender to palpation but cannot see any erythema or obvious signs of infection) Extremities: normal inspection, pedal edema Neurologic/Psychiatric: no motor/sensory deficits, alert, normal mood/affect, oriented x 3 Skin: normal color, warm/dry Results/Procedures: Labs Laboratory Tests 12/10/19 15:46: Glucometer 338H 12/10/19 20:10: Glucometer 281H 12/11/19 05:14: Glucometer 145H 12/11/19 05:45: White Blood Count 9.3, Red Blood Count 4.30L, Hemoglobin 11.8L, Hematocrit 40, Mean Corpuscular Volume 92, Mean Corpuscular Hemoglobin 27, Mean Corpuscular Hemoglobin Concent 30L, Red Cell Distribution Width 15.5H, Platelet Count 276, Mean Platelet Volume 10.1, Neutrophils (%) (Auto) 79H, Lymphocytes (%) (Auto) 11L, Monocytes (%) (Auto) 7, Eosinophils (%) (Auto) 3, Basophils (%) (Auto) 1, Neutrophils # (Auto) 7.4, Lymphocytes # (Auto) 1.0, Monocytes # (Auto) 0.7, Eosinophils # (Auto) 0.2, Basophils # (Auto) 0.1, Sodium Level 141, Potassium Level 4.1, Chloride Level 109H, Carbon Dioxide Level 24, Anion Gap 8, Blood Urea Nitrogen 15, Creatinine 0.72, Estimat Glomerular Filtration Rate > 60, BUN/Creatinine Ratio 21, Glucose Level 115H, Calcium Level 8.8, Corrected Calcium 9.2, Total Bilirubin 0.4, Aspartate Amino Transf (AST/SGOT) 11, Alanine Aminotransferase (ALT/SGPT) 11, Alkaline Phosphatase 54, Total Protein 6.5, Albumin 3.5 12/11/19 11:16: Glucometer 147H Microbiology 12/06/19 MRSA Screen - Final, Complete MRSA not isolated 12/06/19 Blood Culture - Preliminary, Resulted No growth 12/06/19 Urine Culture - Final, Complete NO GROWTH A/P: Assessment/Dx: Scrotal cellulitis, abscess, Meth abuse, Active smoker, Cardiomyopathy of unknown origin, Recent stroke, status post thrombolytics. Positive cardiac enzymes. DM, HTN, Hyperlipidemia, RBBB, LAFB, LVH on EKG. Plan: Plan to do coronary angiography and atrial flutter ablation this . I spoke at length to the patient and took informed consent. 1 percent risk of damage to the arteries, veins, heart, valves and even was discussed with the patient. The patient accepted all the risks and would like to proceed with the procedure on 12/12/2019. Scrotal swelling and cellulitis, defer to the primary team. Treatment with IV antibiotics. Meth abuse, strongly recommended to quit. Atrial flutter with 2-1 AV block. Refractory to medical therapy with IV Cardizem. Patient is on Eliquis. Cardioversion is recommended. 1 percent risk of stroke was discussed. Cardioversion was performed with anesthesia support on 12/07/2019. Transesophageal echocardiogram did not show any left atrial or left atrial appendage thrombus. Poor LV function. Continue Eliquis. Currently in sinus rhythm. I briefly discussed about typical flutter ablation. Please see above. Recent Acute stroke, status post thrombolytics, resolution. Will require rehabilitation. Previous admission showed Positive cardiac enzymes. Coronary angiography is contraindicated in an acute stroke for at least a month from the index event which was on 11/10/2019. I briefly discussed with the patient about coronary angiography before discharge. Smoking, smoking cessation was strongly recommended. DM, defer to the primary team. HTN, aggressive blood pressure management. Hyperlipidemia, high-dose Lipitor therapy. RBBB, continue to follow. 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 LVH on EKG. Cardiomyopathy of unknown origin. Likely nonischemic. However patient had positive cardiac enzymes on recent admission. Therefore coronary angiography was recommended. However was delayed until end of November. Thank you for your consultation. Please call me if you have any questions. Monika Storm MD, FACP, FACC, FSCAI, FHRS, CCDS Interventional Cardiology Cardiac Electrophysiology Vascular Medicine and Endovascular Interventions Focused Exam Lactate Level 12/09/19 10:06: Lactic Acid Level 0.86 Time of Focused Exam: 02:40 Calvin STORM MD Dec 11, 2019 12:44
[2019-12-11 15:59] VITALS: BP 146/93
--- NOTE | 2019-12-11 17:42 | Progress Note - Surgery ---
Subjective Time Seen by a Provider: 12:48 Subjective/Events-last exam Pt seen and examined, having bladder spasms and complaining of severe pain. States his testicles are not any better. He is not moving around very much; just lays in bed. Review of Systems General: No Chills, No Night Sweats Pulmonary: No Dyspnea, No Cough Cardiovascular: Chest Pain, Palpitations Gastrointestinal: No: Nausea, Vomiting, Abdominal Pain Focused Exam Lactate Level 12/09/19 10:06: Lactic Acid Level 0.86 Time of Focused Exam: 02:40 Objective Exam Vital Signs Date Time Temp Pulse Resp B/P (MAP) Pulse Ox O2 Delivery O2 Flow Rate FiO2 12/11/19 15:59 36.6 104 24 146/93 (110) 96 OxyMask 8.00 12/11/19 14:45 91 OxyMask 8.00 12/11/19 13:17 112 12/11/19 12:00 36.4 106 16 159/94 (115) 98 Nasal Cannula 4.00 12/11/19 09:00 Room Air 12/11/19 08:00 36.4 78 22 146/89 (108) 97 Nasal Cannula 4.00 12/11/19 07:29 92 Nasal Cannula 4.00 12/11/19 07:05 109 12/11/19 04:00 36.9 102 22 156/96 (116) 93 Nasal Cannula 4.00 12/11/19 01:00 100 12/11/19 00:05 36.6 99 22 147/91 (109) 97 Nasal Cannula 4.00 12/10/19 21:45 91 Nasal Cannula 4.00 12/10/19 20:55 94 Nasal Cannula 4.00 12/10/19 20:48 36.8 99 20 158/88 (111) 94 Nasal Cannula 4.00 12/10/19 19:00 97 I & O 12/11/19 07:00 Intake Total 2531 ml Output Total 1050 ml Balance 1481 ml Capillary Refill : Less Than 3 Seconds General Appearance: Chronically ill, Mild Distress, Obese HEENT: PERRL/EOMI Respiratory: Chest Non Tender, Lungs Clear, Normal Breath Sounds, No Accessory Muscle Use, No Respiratory Distress Cardiovascular: Regular Rate, Rhythm, No Murmur, Normal Peripheral Pulses Gastrointestinal: soft, no organomegaly, hernia (incarcerated umbilical hernia), other (Pt was urinating around [place], could not get bladder scan) Extremity: Pedal Edema Skin: Other (pt still has very severe scrotal edema, not improved at all. May even be slightly red, but again don't believe there is an abscess just edema.) Results Lab Laboratory Tests 12/10/19 20:10: Glucometer 281H 12/11/19 05:14: Glucometer 145H 12/11/19 05:45: White Blood Count 9.3, Red Blood Count 4.30L, Hemoglobin 11.8L, Hematocrit 40, Mean Corpuscular Volume 92, Mean Corpuscular Hemoglobin 27, Mean Corpuscular Hemoglobin Concent 30L, Red Cell Distribution Width 15.5H, Platelet Count 276, Mean Platelet Volume 10.1, Neutrophils (%) (Auto) 79H, Lymphocytes (%) (Auto) 11L, Monocytes (%) (Auto) 7, Eosinophils (%) (Auto) 3, Basophils (%) (Auto) 1, Neutrophils # (Auto) 7.4, Lymphocytes # (Auto) 1.0, Monocytes # (Auto) 0.7, Eosinophils # (Auto) 0.2, Basophils # (Auto) 0.1, Sodium Level 141, Potassium Level 4.1, Chloride Level 109H, Carbon Dioxide Level 24, Anion Gap 8, Blood Urea Nitrogen 15, Creatinine 0.72, Estimat Glomerular Filtration Rate > 60, BUN/Creatinine Ratio 21, Glucose Level 115H, Calcium Level 8.8, Corrected Calcium 9.2, Total Bilirubin 0.4, Aspartate Amino Transf (AST/SGOT) 11, Alanine Aminotransferase (ALT/SGPT) 11, Alkaline Phosphatase 54, Total Protein 6.5, Al bumin 3.5 12/11/19 11:16: Glucometer 147H 12/11/19 15:48: Glucometer 272H Microbiology 12/06/19 MRSA Screen - Final, Complete MRSA not isolated 12/06/19 Blood Culture - Preliminary, Resulted No growth 12/06/19 Urine Culture - Final, Complete NO GROWTH Assessment/Plan Assessment/Plan Assessment/Plan Scrotal Swelling and Pain Incarcerated Umbilical Hernia Morbid Obesity Hx of CVA, recent Cardioversion US of scrotum showed no abscess that needs to be drained; just a lot of edema. Elevating the scrotum may help (to drain some edema); however, it is very tender and it may be hard to do this. Pt may benefit from a Urology consult and even a CT. He does not appear to be getting any better; however, this is mostly due to the pt being non- compliant and refusing to participate in his own care. Umbilical hernia has "been there forever"; per patient and can therefore get taken care of at his convenience. Continue current care. Clinical Quality Measures DVT/VTE Risk/Contraindication: Risk Factor Score Per Nursin RFS Level Per Nursing on Admit: 4+=Very High NENA GIBBS DO Dec 11, 2019 17:42
[2019-12-11 20:02] VITALS: BP 147/86
[2019-12-12] VITALS (22 sets, daily range): BP systolic 101–169; BP diastolic 64–98
[2019-12-12] MEDS: RT-ALBUTEROL/IPRATROPIUM 3 ML (DUONEB) VIAL INH SCH ×4 (03:00→21:37)
[2019-12-12] MEDS: inSUlin ASPART (NovoLOG) 1 UNIT/0.01 ML (CHARGE PER UNIT) SC SCH ×2 (05:17→17:48)
[2019-12-12 05:34] LABS: BASOPHILS # (AUTO) 0.1 10^3/uL (0.0-0.1); BASOPHILS % (AUTO) 1 % (0-10); EOSINOPHILS # (AUTO) 0.3 10^3/uL (0.0-0.3); EOSINOPHILS % (AUTO) 3 % (0-10); HEMATOCRIT 41 % (40-54); HEMOGLOBIN 12.2 G/DL (13.3-17.7); LYMPHOCYTES # (AUTO) 0.9 X 10^3 (1.0-4.0); LYMPHOCYTES % (AUTO) 9 % (12-44); MEAN CORPUSCULAR HEMOGLOBIN 28 PG (25-34); MEAN CORPUSCULAR HGB CONC 30 G/DL (32-36); MEAN CORPUSCULAR VOLUME 93 FL (80-99); MONOCYTES # (AUTO) 0.8 X 10^3 (0.0-1.0); MONOCYTES % (AUTO) 8 % (0-12); NEUTROPHILS # (AUTO) 7.3 X 10^3 (1.8-7.8); NEUTROPHILS % (AUTO) 79 % (42-75); PLATELET COUNT 295 10^3/uL (130-400); RED CELL DISTRIBUTION WIDTH 15.7 % (10.0-14.5); WHITE BLOOD COUNT 9.3 10^3/uL (4.3-11.0)
[2019-12-12 05:57] LABS: ALANINE AMINOTRANSFERASE 12 U/L (0-55); ALBUMIN 3.5 GM/DL (3.2-4.5); ALKALINE PHOSPHATASE 55 U/L (40-136); BILIRUBIN,TOTAL 0.4 MG/DL (0.1-1.0); BUN/CREATININE RATIO 25; CARBON DIOXIDE 27 MMOL/L (21-32); CHLORIDE 108 MMOL/L (98-107); CREATININE SERUM 0.76 MG/DL (0.60-1.30); GFR ESTIMATED > 60; GLUCOSE 140 MG/DL (70-105); POTASSIUM 4.4 MMOL/L (3.6-5.0); SODIUM 146 MMOL/L (135-145); TOTAL PROTEIN 6.8 GM/DL (6.4-8.2)
--- NOTE | 2019-12-12 06:30 | Progress Note - Hospitalist ---
Subjective HPI/CC On Admission Date Seen by Provider: Dec 12, 2019 Time Seen by Provider: 10:00 Subjective/Events-last exam Pt down for atrial ablation today Antibiotics maintained Overall doing about the same Patient had volume overload after his procedure in [employer] [employer] and sent up to ICU and I spoke to ICU doctor and updated on the hx and will place on abx empirically and diuresis will continue and will monitor patient in ICU tonight, may need left thoracentesis. Review of Systems General: Fatigue, Malaise Pulmonary: Dyspnea Focused Exam Lactate Level Time of Focused Exam: 02:40 Objective Exam Vital Signs Vital Signs Date Time Temp Pulse Resp B/P (MAP) Pulse Ox O2 Delivery O2 Flow Rate FiO2 12/12/19 19:37 Mechanical Ventilator 80.00 12/12/19 19:27 35.9 12/12/19 19:24 95 18 98 100 12/12/19 18:16 133/84 Capillary Refill : Less Than 3 Seconds General Appearance: No Apparent Distress, WD/WN, Chronically ill, Obese Respiratory: Chest Non Tender, Lungs Clear, Normal Breath Sounds, No Accessory Muscle Use, No Respiratory Distress, Decreased Breath Sounds Cardiovascular: Regular Rate, Rhythm, No Edema, No Gallop, No JVD, No Murmur, N ormal Peripheral Pulses Neurologic/Psychiatric: Alert, Oriented x3, No Motor/Sensory Deficits, Normal Mood/Affect Results/Procedures Lab Laboratory Tests 12/12/19 05:15 Patient resulted labs reviewed. Assessment/Plan Assessment and Plan Assess & Plan/Chief Complaint Assessment: Acute volume overload Scrotal cellulitis Sepsis Meth use SVT episode Smoker Alcohol user Leucocytosis Edema Plan: Dr. Tyler consult IV antibiotics restarted after they completed after 5 days Cardiology consult DVT prophylaxis ICU for volume overload and hypoxia Diagnosis/Problems Diagnosis/Problems (1) Congestive heart failure Qualifiers: Heart failure type: systolic Heart failure chronicity: unspecified Philippe lified Codes: I50.20 - Unspecified systolic (congestive) heart failure (2) Tachycardia Status: Acute Clinical Quality Measures DVT/VTE Risk/Contraindication: Risk Factor Score Per Nursin RFS Level Per Nursing on Admit: 4+=Very High GAYATRI GILL DO Dec 12, 2019 06:30
[2019-12-12 07:57] LABS: AMPHETAMINE SCREEN, URINE NEGATIVE (NEGATIVE); BARBITURATE SCREEN URINE NEGATIVE (NEGATIVE); BENZODIAZEPINES SCREEN URINE POSITIVE (NEGATIVE); CANNABINOID SCREEN, URINE POSITIVE (NEGATIVE); COCAINE SCREEN URINE NEGATIVE (NEGATIVE); METHADONE STAT NEGATIVE (NEGATIVE); METHAMPHETAMINE SCREEN URINE S NEGATIVE (NEGATIVE); OPIATE SCREEN URINE POSITIVE (NEGATIVE); OXYCODONE STAT NEGATIVE (NEGATIVE); PROPOXYPHENE STAT NEGATIVE (NEGATIVE); TRICYCLIC ANTIDEPRESSANTS SCRE NEGATIVE (NEGATIVE)
[2019-12-12] MEDS ORDERED: MIDAZOLAM 2 MG/2 ML (VERSED) VIAL ONE (08:32)
[2019-12-12] MEDS ORDERED: proPOfol 200 MG/20 ML (DIPRIVAN) VIAL IV ONE (08:33)
[2019-12-12] MEDS ORDERED: fentaNYL INJECTION 100 MCG/2 ML AMP ONE (08:33)
[2019-12-12] MEDS ORDERED: SUCCINYLCHOLINE INJ 100 MG/5 ML SYR ONE (08:33)
[2019-12-12] MEDS ORDERED: ONDANSETRON 4 MG/2 ML (SDV) Z0FRAN ONE (08:33)
[2019-12-12] MEDS ORDERED: NS IV 1000 ML 1,000 ML IV SCH ×2 (08:38→12:48)
[2019-12-12] MEDS: APIXABAN 5 MG (ELIQUIS) TABLET PO SCH ×2 (08:41→22:08)
[2019-12-12] MEDS: CLOPIDOGREL 75 MG (PLAVIX) TABLET PO SCH (08:41)
--- NOTE | 2019-12-12 08:41 | NUR ---
AM MEDS WERE GIVEN WITH SIP OF WATER
[2019-12-12] MEDS ORDERED: ISOFLURANE (FORANE) 15 ML/15 MIN INHALATION ONE ×2 (08:42→09:30)
[2019-12-12] MEDS: NICOTINE PATCH REMOVAL TP SCH (08:44)
[2019-12-12] MEDS ORDERED: ISOPROTERENOL 0.2 MG/D5W 50 ML IV ONE (08:45)
[2019-12-12] MEDS ORDERED: HEParin (CATH LAB) 2,000 ML IV ONE (09:08)
[2019-12-12] MEDS ORDERED: LIDOCAINE 1% INJ 20 ML 20 ML VIAL ONE (09:08)
[2019-12-12] MEDS ORDERED: NS IV 1000 ML 1,000 ML ONE (09:09)
[2019-12-12] MEDS ORDERED: HEParin (CATH LAB) 1,000 ML IV ONE (09:09)
[2019-12-12] MEDS ORDERED: LACTATED RINGERS 1,000 ML IV ONE ×2 (09:30→10:02)
[2019-12-12] MEDS ORDERED: ROCURONIUM 10 MG/ML 5 ML SYRINGE IV ONE ×2 (09:53→12:58)
[2019-12-12] MEDS ORDERED: PHENYLEPHRINE 100 MCG/ML 10 ML (ANESTHESIA) SYR ONE (10:01)
--- NOTE | 2019-12-12 10:31 | Cardiology Progress Note ---
Cardiology SOAP Progress Note Subjective: No cardiac complaints. Objective: I&O/Vital Signs 12/12/19 12/12/19 12/12/19 12/12/19 00:46 01:00 03:01 04:07 Temp 36.6 36.0 Pulse 105 102 100 Resp 24 20 B/P (MAP) 169/83 (111) 144/87 (106) Pulse Ox 93 84 95 O2 Delivery OxyMask OxyMask OxyMask O2 Flow Rate 8.00 6.00 8.00 12/12/19 12/12/19 12/12/19 12/12/19 07:00 07:13 08:00 09:00 Temp 36.3 Pulse 109 101 Resp 20 B/P (MAP) 159/96 (117) Pulse Ox 90 99 O2 Delivery OxyMask OxyMask Room Air O2 Flow Rate 9.00 8.00 12/12/19 00:00 Intake Total 880 ml Output Total 1200 ml Balance -320 ml Weight (Pounds): 358 Weight (Ounces): 1.0 Weight (Calculated Kilograms): [id number] Constitutional: AAO x 3 Respiratory: chest is bilaterally symmetric, lungs clear to auscultation Cardiovascular: regular rate-rhythm, S1 and S2 Gastrointestional: distended, audible bowel sounds Genital/Rectal: other (large scrotal edema and penile edema, cannot even see penis (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 Testicles are very tender to palpation but cannot see any erythema or obvious signs of infection) Extremities: normal inspection, pedal edema Neurologic/Psychiatric: no motor/sensory deficits, alert, normal mood/affect, oriented x 3 Skin: normal color, warm/dry Results/Procedures: Labs Laboratory Tests 12/11/19 11:16: Glucometer 147H 12/11/19 15:48: Glucometer 272H 12/11/19 20:38: Glucometer 228H 12/12/19 05:10: Glucometer 136H 12/12/19 05:15: White Blood Count 9.3, Red Blood Count 4.41, Hemoglobin 12.2L, Hematocrit 41, Mean Corpuscular Volume 93, Mean Corpuscular Hemoglobin 28, Mean Corpuscular Hemoglobin Concent 30L, Red Cell Distribution Width 15.7H, Platelet Count 295, Mean Platelet Volume 10.0, Neutrophils (%) (Auto) 79H, Lymphocytes (%) (Auto) 9L , Monocytes (%) (Auto) 8, Eosinophils (%) (Auto) 3, Basophils (%) (Auto) 1, Neutrophils # (Auto) 7.3, Lymphocytes # (Auto) 0.9L, Monocytes # (Auto) 0.8, Eo sinophils # (Auto) 0.3, Basophils # (Auto) 0.1, Sodium Level 146H, Potassium Level 4.4, Chloride Level 108H, Carbon Dioxide Level 27, Anion Gap 11, Blood Urea Nitrogen 19H, Creatinine 0.76, Estimat Glomerular Filtration Rate > 60, BUN/Creatinine Ratio 25, Glucose Level 140H, Calcium Level 9.0, Corrected Calcium 9.4, Total Bilirubin 0.4, Aspartate Amino Transf (AST/SGOT) 14, Alanine Aminotransferase (ALT/SGPT) 12, Alkaline Phosphatase 55, Total Protein 6.8, Albumin 3.5 12/12/19 07:36: Urine Opiates Screen POSITIVEH, Urine Oxycodone Screen NEGATIVE, Urine Methadone Screen NEGATIVE, Urine Propoxyphene Screen NEGATIVE, Urine Barbiturates Screen NEGATIVE, Ur Tricyclic Antidepressants Screen NEGATIVE, Urine Phencyclidine Screen NEGATIVE, Urine Amphetamines Screen NEGATIVE, Urine Methamphetamines Screen NEGATIVE, Urine Benzodiazepines Screen POSITIVEH, Urine Cocaine Screen NEGATIVE, Urine Cannabinoids Screen POSITIVEH Microbiology 12/06/19 MRSA Screen - Final, Complete MRSA not isolated 12/06/19 Blood Culture - Final, Complete No growth 12/06/19 Urine Culture - Final, Complete NO GROWTH A/P: Assessment/Dx: Scrotal cellulitis, abscess, Meth abuse, Active smoker, Cardiomyopathy of unknown origin, Recent stroke, status post thrombolytics. Positive cardiac enzymes. DM, HTN, Hyperlipidemia, RBBB, LAFB, LVH on EKG. Plan: Plan to do coronary angiography and atrial flutter ablation today. I spoke at length to the patient and took informed consent. 1 percent risk of damage to the arteries, veins, heart, valves and even was discussed with the patient. The patient accepted all the risks and would like to proceed with the procedure today 12/12/2019. Scrotal swelling and cellulitis, defer to the primary team. Treatment with IV antibiotics. Meth abuse, strongly recommended to quit. Atrial flutter with 2-1 AV block. Refractory to medical therapy with IV Cardizem. Patient is on Eliquis. Cardioversion is recommended. 1 percent risk of stroke was discussed. Cardioversion was performed with anesthesia support on 12/07/2019. Transesophageal echocardiogram did not show any left atrial or left atrial appendage thrombus. Poor LV function. Continue Eliquis. Currently in sinus rhythm. I briefly discussed about typical flutter ablation. Please see above. Recent Acute stroke, status post thrombolytics, resolution. Will require rehabilitation. Previous admission showed Positive cardiac enzymes. Coronary angiography is contraindicated in an acute stroke for at least a month from the index event which was on 11/10/2019. I briefly discussed with the patient about coronary angiography before discharge. Smoking, smoking cessation was strongly recommended. DM, defer to the primary team. HTN, aggressive blood pressure management. Hyperlipidemia, high-dose Lipitor therapy. RBBB, continue to follow. 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 LVH on EKG. Cardiomyopathy of unknown origin. Likely nonischemic. However patient had positive cardiac enzymes on recent admission. Therefore coronary angiography was recommended. However was delayed until end of November. Thank you for your consultation. Please call me if you have any questions. Monika Storm MD, FACP, FACC, FSCAI, FHRS, CCDS Interventional Cardiology Cardiac Electrophysiology Vascular Medicine and Endovascular Interventions Focused Exam Time of Focused Exam: 02:40 Calvin STORM MD Dec 12, 2019 10:31
[2019-12-12] MEDS ORDERED: PHENYLEPHRINE INJ 10 MG/ML (FOR DRIP KITS ONLY) ONE (10:55)
[2019-12-12] MEDS ORDERED: NS (IVPB) 100 ML ONE (10:55)
--- NOTE | 2019-12-12 12:47 | Coronary Angiography Report ---
Coronary Angiography Report DATE OF PROCEDURE: 12/12/19 INDICATION: New onset cardiomyopathy, positive troponins previously. PREOPERATIVE DIAGNOSIS: New onset cardiomyopathy, positive troponins previously. POSTOPERATIVE DIAGNOSIS: Mild CAD. HISTORY: This is a 54-year-old gentleman with history of acute stroke on 11/10/2019. He was found to have an EF of 20 percent on echocardiogram and positive troponins. Coronary angiography was not done due to acute stroke and was deferred for one month from the index event. However the patient returned with Scrotal cellulitis and was found to be tachycardic in atrial flutter with 2-1 AV block. Borderline blood pressure. Transesophageal echocardiogram assisted cardioversion was done. Therefore, the patient was scheduled for coronary angiography. PROCEDURES PERFORMED: 1.Coronary angiography. 2.Left heart catheterization. COMPLICATIONS: None. SPECIMENS: None. ESTIMATED BLOOD LOSS: 10 mL ANESTHESIA: Conscious sedation ANTICOAGULATION: On Eliquis. CONTRAST: 54 mL. FLUOROSCOPY: 16.0 minutes, however this includes fluoroscopy for the EP study as well. FLOUROSCOPY DOSE: 1301 mgy. PROCEDURE DETAILS: The patient is a 54 male and was brought to the laborer/key man after informed consent was taken. All the risks and complications were explained in detail; this included the risk of bleeding, vascular damage, stroke, [place] and even . The patient was draped and prepped in the usual sterile fashion. Access was gained in the right femoral artery with a 5 [place] sheath. Coronary angiography and left heart catheterization was performed with a JR4 and JL4 catheter. FINDINGS: 1.Left main: Patent. 2.LAD: Minimal disease. 3.Left circumflex artery: Luminal irregularities. 4.RCA: Mild disease. 5.Left heart catheterization: Moderate to severe LV systolic dysfunction with an EF of 20-25 percent. No gradient across the aortic valve. LV pressure 57/2 mmHg. LVEDP 13 mmHg. CONCLUSIONS: Mild CAD, continue secondary prevention measures. Monika Storm MD, FACP, FACC, [facility] Interventional Cardiology Calvin STORM MD Dec 12, 2019 12:47
--- NOTE | 2019-12-12 12:47 | Electrophysiology Procedure ---
EP Procedure Typical atrial flutter ablation operative report. DATE OF SERVICE:12/12/19 CARDIAC TOP PRECIPITATOR OPERATOR HELPER: Monika Storm MD, [facility], [facility]. INDICATION: Typical atrial flutter. PREOPERATIVE DIAGNOSIS: Typical atrial flutter. POSTOPERATIVE DIAGNOSES: Successful typical atrial flutter ablation. HISTORY: Is a 54-year-old gentleman who presented with typical atrial flutter. The patient is planned for comprehensive EP study and ablation. PROCEDURE PERFORMED: 1. Comprehensive EP study with induction. 2. Fluoroscopy. 3.Left atrial pacing and recording. 4. Drug infusion. 5. Ablation of typical atrial flutter. 6. Comprehensive 3D mapping with the carto system. COMPLICATION: None. ESTIMATED BLOOD LOSS: 10 mL. CONTRAST USED: 54 mL for coronary angiography which was done just prior to the EP study. FLUOROSCOPY TIME: 16 minutes which included fluoroscopy for coronary angiography as well. FLUOROSCOPY DOSE: 1301 mgy. SPECIMENS: None. ANESTHESIA: Done by our anesthesia colleagues. ANTICOAGULATION: PROCEDURE IN DETAIL: After informed consent was taken, the patient was brought to the EP lab. Anesthesia was provided by our anesthesia colleagues. The patient was draped and prepped in the usual sterile fashion. The patient presented to the EP lab in sinus rhythm. Access was gained in the right femoral vein with a 6-[place] and an 8-[place]awk sheath. Left access in left femoral vein was gained with 5-[place]awk and 6-[place]awk sheath respectively. High right atrial catheter was an ablation catheter, right ventricular catheter was placed, his catheter and the CS catheter were also placed. A comprehensive EP study was done including a CS pacing. Typical atrial flutter was not induced with rapid atrial pacing with and without Isuprel infusion. A 3D electroanatomic mapping was donewith the carto system. Ablation was performed in the cavotricuspid isthmus.CS pacing and pacing from the ablation catheter at different positions on the lateral side of the ablation line were used to verify bidirectional block. We then waited for 30 minutes and rechecked and confirmed bidirectional block.Isuprel was given post-procedure, however, we could not induce atrial flutter.The patienttolerated the procedure well and did not have any complication. The patientleft the lab in sinus rhythm. Total ablation time was 1091 seconds. MEASUREMENTS/EP STUDY: AH interval 75 ms, AH interval 42 ms, HV interval 83 ms, WA interval 132 ms, QRS duration 110 ms, QT interval 316 ms, R-R interval 757 ms, AV Wenckebach when pacing at cycle length 390 ms, Retrograde Wenckebach when pacing at cycle length 510 ms, Atrial ERP was 600/240 ms. PLAN: The patient will be observed overnight. Monika Storm MD, [facility] Cardiac Electrophysiology Calvin STORM MD Dec 12, 2019 12:47
[2019-12-12] MEDS ORDERED: PATIENT MAY USE OWN MEDS, ALL PO SCH (13:00)
--- NOTE | 2019-12-12 13:38 | NUR ---
1338 Patient to room CU-7 Recovery nurse at bedside. Patient arrived on a ventilator. This nurse called with teleICU to update her. Order received for Propofol. Report received from Sheri Hughes RN recovery nurse at bedside at 1423. Bilateral groin dressing from EP procedure dry and intact. 1426 This nurse asked RT to come to bedside, and I called , patients Oxygen saturation is in the low 80%'s, patient is now on 100%O2. turned the camera on in room and spoke to myself and RT Barrie. RT giving patient a breathing treatment, patient was deep suctioned and scant secretions were suctioned. Patient's ventilator settings gradually increased per . Peep at 14, Respirations 18, O2 100%. Patient's oxygen saturation is now up to 94%.
--- NOTE | 2019-12-12 13:43 | NUR ---
NOTE THAT THIS RN WAS CALLED BY AWNING ERECTOR ADAN AT 1330AAND BE PT -- SHE WAS REQUESTING REPORT -- PT IS TO RECOVER IN ICU AND TO BE ON VENT -- AND BE PT IN ICU BED 7 -- AT 1339 THIS RN CALLED PT'S BROTHER AND ADVISED HIM THAT PT WOULD BE IN RECOVER FOR ONE HOUR AND THEN BE PT IN ICU BED 7 --
[2019-12-12] MEDS ORDERED: HYDROmorphone 2 MG/ML VIAL (DILAUDID) IV ONE (13:45)
[2019-12-12] MEDS ORDERED: MEPERIDINE (DEMEROL) INJ 50 MG/ML IVP ONE (13:45)
[2019-12-12] MEDS ORDERED: PROMETHAZINE INJ 25 MG/ML (PHENERGAN) AMP IVP ONE (13:45)
[2019-12-12] MEDS ORDERED: morphine INJ 10 MG/ML 1ML (SYR OR VIAL) IVP ONE (13:45)
[2019-12-12] MEDS ORDERED: ONDANSETRON 4 MG/2 ML (SDV) Z0FRAN IVP PRN (13:45)
[2019-12-12] MEDS ORDERED: PROPOFOL DRIP (ICU) 100 ML IV ONE (14:02)
--- NOTE | 2019-12-12 14:13 | Diagnostic Imaging Report ---
INDICATION: Respiratory failure Portable chest 2:02 PM There is an ET tube projecting over the trachea. There is complete opacification of the left hemithorax. There is right apical consolidation. Heart appears enlarged. IMPRESSION: Since previous study dated 12/06/2019, there is been development of complete opacification of the left hemithorax and atelectasis in the right upper lobe. Dictated by: Dictated on workstation # [id number]
[2019-12-12 14:25] LABS: ABG BASE EXCESS 5.1 MMOL/L (-2.5-2.5); ABG OXYGEN SATURATION 74 % (94-100); ABG PCO2 59 MMHG (35-45); ABG PO2 42 MMHG (79-93); ABG TCO2 32.8 MMOL/L (21.0-31.0)
--- NOTE | 2019-12-12 14:30 | NUR ---
This nurse notified about patients critical pH from his ABG.
[2019-12-12 14:31] LABS: ALLENS TEST POSITIVE; INSPIRED O2 85%; VENTILATOR YES
[2019-12-12 14:32] LABS: ABG PH 7.33 (7.37-7.43); PATIENT TEMP 36.1
[2019-12-12] MEDS ORDERED: FUROSEMIDE 40 MG/4 ML INJ (LASIX) IVP ONE (15:00)
--- NOTE | 2019-12-12 15:13 | NUR ---
CM/SS follow up. The patient went for a procedure today and is still currently on the vent. CM/SS will follow with patient for discharge planning when available.
[2019-12-12] MEDS ORDERED: PIPERACILLIN/TAZO 4.5 GM/NS 100 ML IV ONE ×2 (15:45)
[2019-12-12] MEDS: PROPOFOL DRIP (ICU) 100 ML IV SCH ×5 (16:22→22:09)
[2019-12-12] MEDS: NICOTINE 21 MG (NICODERM) PATCH TD SCH (16:24)
[2019-12-12] MEDS: PIPERACILLIN/TAZOBACTAM (BULK) 4.5 GM in NS (IVPB) 100 ML IV SCH (22:08)
[2019-12-12] MEDS: FUROSEMIDE 40 MG/4 ML INJ (LASIX) IVP SCH (22:08)
[2019-12-13] VITALS (31 sets, daily range): BP systolic 103–153; BP diastolic 62–98
[2019-12-13] MEDS: inSUlin ASPART (NovoLOG) 1 UNIT/0.01 ML (CHARGE PER UNIT) SC SCH ×5 (00:15→23:46)
[2019-12-13] MEDS: PROPOFOL DRIP (ICU) 100 ML IV SCH ×12 (00:15→23:54)
[2019-12-13] MEDS: RT-ALBUTEROL/IPRATROPIUM 3 ML (DUONEB) VIAL INH SCH ×2 (02:54→09:44)
[2019-12-13 02:55] LABS: ABG BASE EXCESS 7.3 MMOL/L (-2.5-2.5); ABG OXYGEN SATURATION 98 % (94-100); ABG PCO2 52 MMHG (35-45); ABG PO2 89 MMHG (79-93); ABG TCO2 33.9 MMOL/L (21.0-31.0); ALLENS TEST POSITIVE; BASOPHILS # (AUTO) 0.1 10^3/uL (0.0-0.1); BASOPHILS % (AUTO) 1 % (0-10); EOSINOPHILS # (AUTO) 0.3 10^3/uL (0.0-0.3); EOSINOPHILS % (AUTO) 4 % (0-10); HEMATOCRIT 37 % (40-54); HEMOGLOBIN 10.9 G/DL (13.3-17.7); INSPIRED O2 50; LYMPHOCYTES # (AUTO) 1.3 X 10^3 (1.0-4.0); LYMPHOCYTES % (AUTO) 17 % (12-44); MEAN CORPUSCULAR HEMOGLOBIN 28 PG (25-34); MEAN CORPUSCULAR HGB CONC 30 G/DL (32-36); MEAN CORPUSCULAR VOLUME 93 FL (80-99); MONOCYTES # (AUTO) 0.7 X 10^3 (0.0-1.0); MONOCYTES % (AUTO) 10 % (0-12); NEUTROPHILS # (AUTO) 5.1 X 10^3 (1.8-7.8); NEUTROPHILS % (AUTO) 68 % (42-75); PLATELET COUNT 249 10^3/uL (130-400); RED CELL DISTRIBUTION WIDTH 15.5 % (10.0-14.5); VENTILATOR YES; WHITE BLOOD COUNT 7.5 10^3/uL (4.3-11.0)
[2019-12-13 03:04] LABS: CHLORIDE 107 MMOL/L (98-107); POTASSIUM 3.8 MMOL/L (3.6-5.0); SODIUM 148 MMOL/L (135-145)
[2019-12-13 03:05] LABS: CALCIUM 8.7 MG/DL (8.5-10.1)
[2019-12-13 03:06] LABS: GLUCOSE 123 MG/DL (70-105)
[2019-12-13 03:07] LABS: CARBON DIOXIDE 30 MMOL/L (21-32)
[2019-12-13 03:09] LABS: CREATININE SERUM 0.76 MG/DL (0.60-1.30); GFR ESTIMATED > 60; PHOSPHORUS 3.9 MG/DL (2.3-4.7)
[2019-12-13 03:10] LABS: BUN/CREATININE RATIO 24
[2019-12-13 03:11] LABS: MAGNESIUM 1.9 MG/DL (1.6-2.4)
[2019-12-13] MEDS: KCL 20 MEQ TAB (K-DUR) PO SCH (05:50)
[2019-12-13] MEDS: POTASSIUM CL 10MEQ/50ML IVPB 50 ML IV SCH (05:50)
[2019-12-13] MEDS: MAGNESIUM 1 GM/100 ML IVPB 100 ML IV SCH (05:50)
[2019-12-13] MEDS: FUROSEMIDE 40 MG/4 ML INJ (LASIX) IVP SCH ×3 (05:56→21:11)
[2019-12-13] MEDS: PIPERACILLIN/TAZOBACTAM (BULK) 4.5 GM in NS (IVPB) 100 ML IV SCH ×3 (05:56→21:10)
[2019-12-13] MEDS ORDERED: POTASSIUM CL 10MEQ/50ML IVPB 50 ML IV SCH (06:00)
[2019-12-13] MEDS ORDERED: MAGNESIUM 1 GM/100 ML IVPB 100 ML IV SCH (06:00)
[2019-12-13] MEDS ORDERED: KCL 20 MEQ TAB (K-DUR) PO SCH (06:00)
--- NOTE | 2019-12-13 06:29 | Progress Note - Hospitalist ---
Subjective HPI/CC On Admission Date Seen by Provider: Dec 13, 2019 Time Seen by Provider: 11:15 Subjective/Events-last exam Patient intubated since EP study Volume overload requiring aggressive diuresis Chest x-ray will be monitored may need Thoracentesis COVID swab will be performed since he hasn't had a swab done for 2 weeks and he does have respiratory failure now Focused Exam Time of Focused Exam: 02:40 Objective Exam Vital Signs Vital Signs Date Time Temp Pulse Resp B/P (MAP) Pulse Ox O2 Delivery O2 Flow Rate FiO2 12/13/19 14:26 36.7 12/13/19 14:25 73 110/73 12/13/19 14:00 17 96 Mechanical Ventilator 40.00 12/13/19 09:44 50 Capillary Refill : Less Than 3 SecondsLess Than 3 Seconds General Appearance: No Apparent Distress, WD/WN, Chronically ill, Obese Respiratory: Lungs Clear, Normal Breath Sounds Cardiovascular: Regular Rate, Rhythm Neurologic/Psychiatric: Other (patient sedated) Results/Procedures Lab Laboratory Tests 12/13/19 02:40 Patient resulted labs reviewed. Assessment/Plan Assessment and Plan Assess & Plan/Chief Complaint Assessment: Acute volume overload requiring intubation Scrotal cellulitis Sepsis Meth use SVT episode Smoker Alcohol user Leucocytosis Edema Plan: Dr. Tyler consult IV antibiotics restarted after they completed after 5 days Cardiology consult DVT prophylaxis ICU for volume overload and hypoxia Maintain intubation Appreciate EICU help Coronavirus swab Diagnosis/Problems Diagnosis/Problems (1) Ventilator dependence (2) Congestive heart failure Qualifiers: Heart failure type: systolic Heart failure chronicity: unspecified Qualified Codes: I50.20 - Unspecified systolic (congestive) heart failure (3) Tachycardia Status: Acute (4) Pneumonia (5) Methamphetamine abuse (6) Noncompliance Clinical Quality Measures DVT/VTE Risk/Contraindication: Risk Factor Score Per Nursin RFS Level Per Nursing on Admit: 4+=Very High GAYATRI GILL DO Dec 13, 2019 06:29
[2019-12-13] MEDS ORDERED: acetaZOLAMIDE INJ 500 MG (DIAMOX) VIAL IV NR (08:00)
--- NOTE | 2019-12-13 08:37 | Diagnostic Imaging Report ---
INDICATION: Shortness of breath Portable chest 3:17 AM There is cardiomegaly. ET tube projects over the trachea. NG tube appears to enter the stomach. There is cardiomegaly with pulmonary vascular congestion. IMPRESSION: Cardiomegaly with pulmonary venous hypertension. There continues to be some increased density at the lung bases which could be atelectasis. Overall aeration of the right upper lobe and left lung is markedly improved compared to the previous day. Dictated by: Dictated on workstation # [id number]
[2019-12-13] MEDS: CLOPIDOGREL 75 MG (PLAVIX) TABLET PO SCH (09:01)
[2019-12-13] MEDS: APIXABAN 5 MG (ELIQUIS) TABLET PO SCH ×2 (09:01→21:09)
[2019-12-13] MEDS: NICOTINE 21 MG (NICODERM) PATCH TD SCH (09:01)
[2019-12-13] MEDS: NICOTINE PATCH REMOVAL TP SCH (09:01)
[2019-12-13] MEDS: FAMOTIDINE 20MG/2ML IV (PEPCID) IVP SCH ×2 (10:18→21:10)
--- NOTE | 2019-12-13 10:33 | Anesthesia-General Post-Op ---
General Patient Condition Mental Status/LOC: Unreactive Cardiovascular: Satisfactory Nausea/Vomiting: Absent Respiratory: Unsatisfactory Pain: Controlled Follow Up Care/Instructions Patient Instructions None needed. Anesthesia/Patient Condition Patient Condition Patient is still on vent D/C home per [facility] Criteria: MEHDI Moon CRNA Dec 13, 2019 10:33
--- NOTE | 2019-12-13 10:44 | Progress Note - Surgery ---
Subjective Time Seen by a Provider: 10:14 Subjective/Events-last exam Pt seen, intubated and sedated. Review of Systems Unable to obtain pt is intubated Focused Exam Time of Focused Exam: 02:40 Objective Exam Vital Signs Date Time Temp Pulse Resp B/P (MAP) Pulse Ox O2 Delivery O2 Flow Rate FiO2 12/13/19 10:17 73 131/82 12/13/19 10:00 79 33 128/77 (94) 95 Mechanical Ventilator 40.00 12/13/19 09:44 73 16 95 50 12/13/19 09:00 75 24 134/84 (101) 95 Mechanical Ventilator 40.00 12/13/19 08:20 67 115/71 12/13/19 08:00 36.6 12/13/19 08:00 Mechanical Ventilator 40 12/13/19 08:00 72 18 128/88 (101) 95 Mechanical Ventilator 40.00 12/13/19 07:00 67 26 115/71 (86) 96 Mechanical Ventilator 40.00 12/13/19 07:00 70 12/13/19 06:46 73 18 95 50 12/13/19 06:07 72 135/87 12/13/19 06:00 71 16 121/85 (97) 95 Mechanical Ventilator 40.00 12/13/19 05:00 71 20 117/68 (84) 95 Mechanical Ventilator 40.00 12/13/19 04:14 72 135/87 12/13/19 04:00 Mechanical Ventilator 40 12/13/19 04:00 69 17 109/62 (78) 94 Mechanical Ventilator 40.00 12/13/19 04:00 36.2 12/13/19 03:00 Mechanical Ventilator 40.00 12/13/19 03:00 70 13 136/96 (109) 99 Mechanical Ventilator 40.00 12/13/19 02:54 72 19 96 50 12/13/19 02:23 70 116/77 12/13/19 02:00 73 18 130/90 (103) 95 Mechanical Ventilator 50.00 12/13/19 01:00 70 12/13/19 01:00 70 25 128/81 (97) 94 Mechanical Ventilator 50.00 12/13/19 00:58 36.0 12/13/19 00:15 74 116/77 12/13/19 00:00 69 13 131/91 (104) 96 Mechanical Ventilator 50.00 12/13/19 00:00 Mechanical Ventilator 50 12/12/19 23:55 35.6 12/12/19 23:53 Mechanical Ventilator 50.00 12/12/19 23:00 70 17 125/80 (95) 97 Mechanical Ventilator 60.00 12/12/19 22:12 74 25 116/77 (90) 99 Mechanical Ventilator 60.00 12/12/19 22:09 69 114/76 12/12/19 22:00 70 22 125/84 (98) 98 Mechanical Ventilator 70.00 12/12/19 21:42 Mechanical Ventilator 70.00 12/12/19 21:37 69 18 98 80 12/12/19 21:00 74 25 116/77 (90) 99 Mechanical Ventilator 80.00 12/12/19 21:00 Mechanical Ventilator 80 12/12/19 20:00 73 12 119/75 (90) 99 Mechanical Ventilator 80.00 12/12/19 19:37 Mechanical Ventilator 80.00 12/12/19 19:27 35.9 12/12/19 19:24 95 18 98 100 12/12/19 19:15 69 114/76 12/12/19 19:00 80 12/12/19 19:00 73 17 101/64 (76) 97 Mechanical Ventilator 100.00 12/12/19 18:16 79 133/84 12/12/19 18:00 79 18 133/84 (100) 98 Mechanical Ventilator 100.00 12/12/19 17:00 80 20 127/80 (96) 97 Mechanical Ventilator 100.00 12/12/19 16:34 84 115/71 12/12/19 16:22 84 115/71 12/12/19 16:00 84 24 115/71 (86) 96 Mechanical Ventilator 100.00 12/12/19 15:30 Mechanical Ventilator 100.00 12/12/19 15:27 36.4 12/12/19 15:00 92 28 127/66 (86) 95 Mechanical Ventilator 80.00 12/12/19 14:45 95 24 138/76 (96) 93 Mechanical Ventilator 80.00 12/12/19 14:38 95 24 93 100 12/12/19 14:30 99 21 141/86 (104) Mechanical Ventilator 80.00 12/12/19 14:23 Mechanical Ventilator 60 12/12/19 14:23 36.1 25 137/80 (99) 76 Mechanical Ventilator 12/12/19 14:15 20 151/90 (110) 85 Mechanical Ventilator 12/12/19 14:10 Mechanical Ventilator 60 12/12/19 14:00 16 149/98 (115) 85 Mechanical Ventilator 12/12/19 14:00 104 12/12/19 13:55 Mechanical Ventilator 60 12/12/19 13:45 16 134/86 (102) 91 Mechanical Ventilator 12/12/19 13:40 Mechanical Ventilator 60 12/12/19 13:35 96 16 91 65 12/12/19 13:25 Mechanical Ventilator 60 12/12/19 13:25 37.1 16 104/71 (82) 92 Mechanical Ventilator I & O 12/13/19 07:00 Intake Total 900 ml Output Total 4575 ml Balance -3675 ml Capillary Refill : Less Than 3 SecondsLess Than 3 Seconds General Appearance: Chronically ill, Obese HEENT: Other (intubated) Respiratory: No Accessory Muscle Use, No Respiratory Distress, Decreased Breath Sounds Cardiovascular: Regular Rate, Rhythm, No Murmur Gastrointestinal: soft, no organomegaly, hernia (incarcerated umbilical hernia) Extremity: Pedal Edema Skin: Other (pt still has very severe scrotal edema, not improved at all. May even be slightly red, but no changes. Doubt there is an abscess just edema.) Results Lab Laboratory Tests 12/12/19 13:47: Glucometer 100 12/12/19 14:20: Blood Gas Puncture Site RIGHT RADIAL, Blood Gas Patient Temperature 36.1, Arterial Blood pH 7.33*L, Arterial Blood Partial Pressure CO2 59H, Arterial Blood Partial Pressure O2 42L, Arterial Blood HCO3 31H, Arterial Blood Total CO2 32.8H, Arterial Blood Oxygen Saturation 74L, Arterial Blood Base Excess 5.1H, Mike Test POSITIVE, Blood Gas Ventilator Setting YES, Blood Gas Inspired Oxygen 85% 12/12/19 16:59: Glucometer 96 12/12/19 20:34: Glucometer 136H 12/12/19 23:23: Glucometer 111H 12/13/19 02:40: White Blood Count 7.5, Red Blood Count 3.95L, Hemoglobin 10.9L, Hematocrit 37L, Mean Corpuscular Volume 93, Mean Corpuscular Hemoglobin 28, Mean Corpuscular Hemoglobin Concent 30L, Red Cell Distribution Width 15.5H, Platelet Count 249, Mean Platelet Volume 10.0, Neutrophils (%) (Auto) 68, Lymphocytes (%) (Auto) 17, Monocytes (%) (Auto) 10, Eosinophils (%) (Auto) 4, Basophils (%) (Auto) 1, Neutrophils # (Auto) 5.1, Lymphocytes # (Auto) 1.3, Monocytes # (Auto) 0.7, Eosinophils # (Auto) 0.3, Basophils # (Auto) 0.1, Blood Gas Puncture Site RIGHT RADIAL, Blood Gas Patient Temperature 36.0, Arterial Blood pH 7.40, Arterial Blood Partial Pressure CO2 52H, Arterial Blood Partial Pressure O2 89, Arterial Blood HCO3 32H, Arterial Blood Total CO2 33.9H, Arterial Blood Oxygen Saturation 98, Arterial Blood Base Excess 7.3H, Mike Test POSITIVE, Blood Gas Ventilator Setting YES, Blood Gas Inspired Oxygen 50, Sodium Level 148H, Potassium Level 3.8, Chloride Level 107, Carbon Dioxide Level 30, Anion Gap 11, Blood Urea Nitrogen 18, Creatinine 0.76, Estimat Glomerular Filtration Rate > 60, BUN/Creatinine Ratio 24, Glucose Level 123H, Calcium Level 8.7, Phosphorus Level 3.9, Magnesium Level 1.9 Microbiology 12/11/19 MRSA Screen - Final, Complete MRSA not isolated 12/06/19 Blood Culture - Final, Complete No growth 12/06/19 Urine Culture - Final, Complete NO GROWTH Assessment/Plan Assessment/Plan Assessment/Plan Scrotal Swelling and Pain Incarcerated Umbilical Hernia Morbid Obesity Hx of CVA, recent Cardioversion No changes and no need for surgical intervention at this time. Will sign off and can resee if needed. Clinical Quality Measures DVT/VTE Risk/Contraindication: Risk Factor Score Per Nursin RFS Level Per Nursing on Admit: 4+=Very High NENA GIBBS DO Dec 13, 2019 10:44
--- NOTE | 2019-12-13 11:33 | Cardiology Progress Note ---
Subjective Date Seen by Provider: Dec 13, 2019 Time Seen by Provider: 17:21 Subjective/Events-last exam Patient was seen at bedside, ventilatory dependent Review of Systems General: Other (unable to provide review of systems) Focused Exam Time of Focused Exam: 02:40 Objective-Cardiology Exam Last Set of Vital Signs Vital Signs 12/13/19 12/13/19 12/13/19 14:26 16:49 17:00 Temp 36.7 Pulse 75 Resp 16 B/P (MAP) 134/84 (101) Pulse Ox 94 O2 Delivery Mechanical Ventilator O2 Flow Rate 40.00 FiO2 40 Capillary Refill : Less Than 3 SecondsLess Than 3 Seconds I&O Intake and Output 12/13/19 00:00 Intake Total 380 ml Output Total 2050 ml Balance -1670 ml Intake Oral 0 ml IV Total 320 ml Other 60 ml Output Urine Total 2050 ml General: Other (ventilatory dependent) HEENT: Atraumatic, PERRLA Neck: Supple Lungs: Clear to Auscultation Heart: Regular Rate, Normal S1, Normal S2 Abdomen: Normal Bowel Sounds Extremities: No Clubbing Skin: No Rashes Neuro: Other (sedated and intubated) Results Lab Laboratory Tests 12/13/19 02:40 A/P-Cardiology Admission Diagnosis Acute respiratory failure Atrial flutter Congestive heart failure, acute left ventricular systolic dysfunction, nonischemic cardiomyopathy Hypertension Assessment/Plan Respiratory failure, intubated, managed by primary care team Coronary angiogram done by Dr. Storm on December 12, 2019 showing mild coronary artery disease nonobstructive disease Scrotal swelling and cellulitis, defer to the primary team. Treatment with IV antibiotics. Meth abuse, strongly recommended to quit. Atrial flutter with 2-1 AV block. Refractory to medical therapy with IV Cardizem. Patient is on Eliquis. Cardioversion is recommended. 1 percent risk of stroke was discussed. Cardioversion was performed with anesthesia support on 12/07/2019. Underwent ablation on December 12, 2019, currently in sinus rhythm Recent Acute stroke, status post thrombolytics, resolution. Will require rehabilitation. Previous admission showed Positive cardiac enzymes. Coronary angiography is contraindicated in an acute stroke for at least a month from the index event which was on 11/10/2019. I briefly discussed with the patient about coronary angiography before discharge. Smoking, smoking cessation was strongly recommended. DM, defer to the primary team. HTN, continue to monitor blood pressure Hyperlipidemia, high-dose Lipitor therapy. RBBB, continue to follow. 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 LVH on EKG. Cardiomyopathy of unknown origin. Likely nonischemic. However patient had positive cardiac enzymes on recent admission. Therefore coronary angiography was recommended. However was delayed until end of November. Clinical Quality Measures DVT/VTE Risk/Contraindication: Risk Factor Score Per Nursin RFS Level Per Nursing on Admit: 4+=Very High NIKA SOSA MD Dec 13, 2019 11:33 am
[2019-12-13] MEDS: RT-ALBUTEROL INHALER HFA (VENTOLIN HFA) 8 GM IH SCH ×2 (15:22→21:01)
[2019-12-13] MEDS: IPRATROPIUM INHALER (ATROVENT) 12.9 GM INH SCH ×2 (15:22→21:01)
[2019-12-13 15:28] LABS: ABG BASE EXCESS 8.3 MMOL/L (-2.5-2.5); ABG OXYGEN SATURATION 94 % (94-100); ABG PCO2 58 MMHG (35-45); ABG PH 7.38 (7.37-7.43); ABG PO2 70 MMHG (79-93); ABG TCO2 35.4 MMOL/L (21.0-31.0); ALLENS TEST YES-POS; INSPIRED O2 40%; PATIENT TEMP 36.4; VENTILATOR YES
[2019-12-14] VITALS (27 sets, daily range): BP systolic 129–158; BP diastolic 82–96
[2019-12-14] MEDS: PROPOFOL DRIP (ICU) 100 ML IV SCH ×9 (01:22→21:24)
--- NOTE | 2019-12-14 01:46 | NUR ---
CALLED DR. SHOOK AND INFORMED HIM THAT PATIENT'S COVID TEST WAS NEGATIVE. RECEIVED ORDERS TO REMOVE ISOLATION.
[2019-12-14] MEDS: RT-ALBUTEROL INHALER HFA (VENTOLIN HFA) 8 GM IH SCH ×4 (02:37→21:46)
[2019-12-14] MEDS: IPRATROPIUM INHALER (ATROVENT) 12.9 GM INH SCH ×4 (02:37→21:46)
[2019-12-14 03:27] LABS: BASOPHILS # (AUTO) 0.1 10^3/uL (0.0-0.1); BASOPHILS % (AUTO) 1 % (0-10); EOSINOPHILS # (AUTO) 0.3 10^3/uL (0.0-0.3); EOSINOPHILS % (AUTO) 4 % (0-10); HEMATOCRIT 39 % (40-54); HEMOGLOBIN 11.6 G/DL (13.3-17.7); LYMPHOCYTES # (AUTO) 0.9 X 10^3 (1.0-4.0); LYMPHOCYTES % (AUTO) 11 % (12-44); MEAN CORPUSCULAR HEMOGLOBIN 28 PG (25-34); MEAN CORPUSCULAR HGB CONC 30 G/DL (32-36); MEAN CORPUSCULAR VOLUME 93 FL (80-99); MEAN PLATELET VOLUME 10.4 FL (7.4-10.4); MONOCYTES % (AUTO) 13 % (0-12); NEUTROPHILS # (AUTO) 5.4 X 10^3 (1.8-7.8); NEUTROPHILS % (AUTO) 71 % (42-75); PLATELET COUNT 254 10^3/uL (130-400); RED CELL DISTRIBUTION WIDTH 15.5 % (10.0-14.5); WHITE BLOOD COUNT 7.6 10^3/uL (4.3-11.0)
[2019-12-14 03:38] LABS: PHOSPHORUS 5.2 MG/DL (2.3-4.7)
[2019-12-14 03:58] LABS: ABG BASE EXCESS 8.7 MMOL/L (-2.5-2.5); ABG OXYGEN SATURATION 95 % (94-100); ABG PCO2 54 MMHG (35-45); ABG PH 7.41 (7.37-7.43); ABG PO2 73 MMHG (79-93); ABG TCO2 35.4 MMOL/L (21.0-31.0)
[2019-12-14 03:59] LABS: ALLENS TEST YES-POS; INSPIRED O2 40%; PATIENT TEMP 36.6; VENTILATOR YES
[2019-12-14 04:41] LABS: CHLORIDE 105 MMOL/L (98-107); POTASSIUM 3.1 MMOL/L (3.6-5.0); SODIUM 149 MMOL/L (135-145)
[2019-12-14 04:43] LABS: GLUCOSE 86 MG/DL (70-105)
[2019-12-14 04:44] LABS: CARBON DIOXIDE 31 MMOL/L (21-32)
[2019-12-14 04:47] LABS: CREATININE SERUM 0.98 MG/DL (0.60-1.30); GFR ESTIMATED > 60
[2019-12-14 04:48] LABS: BUN/CREATININE RATIO 16
[2019-12-14] MEDS: MAGNESIUM 1 GM/100 ML IVPB 100 ML IV SCH (04:57)
[2019-12-14] MEDS: POTASSIUM CL 10MEQ/50ML IVPB 50 ML IV SCH ×5 (04:57→08:53)
[2019-12-14] MEDS: FUROSEMIDE 40 MG/4 ML INJ (LASIX) IVP SCH ×3 (05:06→22:27)
[2019-12-14] MEDS: PIPERACILLIN/TAZOBACTAM (BULK) 4.5 GM in NS (IVPB) 100 ML IV SCH ×3 (05:16→22:24)
[2019-12-14] MEDS: KCL 20 MEQ TAB (K-DUR) PO SCH (06:25)
[2019-12-14] MEDS: inSUlin ASPART (NovoLOG) 1 UNIT/0.01 ML (CHARGE PER UNIT) SC SCH ×4 (06:25→23:12)
--- NOTE | 2019-12-14 07:34 | NUR ---
pt was no on CO2 monitor since he was intubated and placed on vent. pt now has a co2 monitor on in line with vent. Addendum: 12/14/19 at 0735 by AGATA CHI RT Amended: Links added.
--- NOTE | 2019-12-14 07:50 | Diagnostic Imaging Report ---
Indication: Shortness of breath Portable chest 3:31 AM There is ET tube projects over the trachea. NG tube enters the stomach. There is cardiomegaly. There is some increased basilar density in both hemithoraces right greater than left. This could be from atelectasis and/or effusion. IMPRESSION: There continues be increased density at the lung bases. This is not appreciably change compared to the previous day. Dictated by: Dictated on workstation # [id number]
[2019-12-14] MEDS: FAMOTIDINE 20MG/2ML IV (PEPCID) IVP SCH ×2 (08:53→20:08)
[2019-12-14] MEDS: NICOTINE 21 MG (NICODERM) PATCH TD SCH (08:53)
[2019-12-14] MEDS: NICOTINE PATCH REMOVAL TP SCH (08:53)
[2019-12-14] MEDS: APIXABAN 5 MG (ELIQUIS) TABLET PO SCH ×2 (08:53→20:09)
[2019-12-14] MEDS: CLOPIDOGREL 75 MG (PLAVIX) TABLET PO SCH (08:53)
--- NOTE | 2019-12-14 11:02 | NUR ---
peep was turned down to 10 per EICU doctors orders. pt is tolerating. Addendum: 12/14/19 at 1102 by AGATA CHI RT Amended: Links added.
--- NOTE | 2019-12-14 11:48 | Cardiology Progress Note ---
Subjective Date Seen by Provider: Dec 14, 2019 Time Seen by Provider: 11:47 Subjective/Events-last exam Patient is sedated and intubated, maintained on PEEP Review of Systems General: Other (unable to provide review of systems) Focused Exam Time of Focused Exam: 02:40 Objective-Cardiology Exam Last Set of Vital Signs Vital Signs 12/14/19 12/14/19 12/14/19 08:00 10:00 10:57 Temp 36.5 Pulse 70 Resp 17 B/P (MAP) 137/84 (101) Pulse Ox 97 O2 Delivery Mechanical Ventilator O2 Flow Rate 40.00 FiO2 45 Capillary Refill : Less Than 3 SecondsLess Than 3 Seconds I&O Intake and Output 12/13/19 23:59 Intake Total 1560 ml Output Total 5450 ml Balance -3890 ml Intake Oral 120 ml IV Total 1440 ml Output Urine Total 5450 ml General: Other (ventilatory dependent) HEENT: Atraumatic, PERRLA Neck: Supple Lungs: Clear to Auscultation Heart: Regular Rate, Normal S1, Normal S2 Abdomen: Normal Bowel Sounds Extremities: No Clubbing Skin: No Rashes Neuro: Other (sedated and intubated) Results Lab Laboratory Tests 12/14/19 02:54 A/P-Cardiology Admission Diagnosis Acute respiratory failure Atrial flutter Congestive heart failure, acute left ventricular systolic dysfunction, nonischemic cardiomyopathy Hypertension Assessment/Plan Respiratory failure, intubated, managed by primary care team Coronary angiogram done by Dr. Storm on December 12, 2019 showing mild coronary artery disease nonobstructive disease Scrotal swelling and cellulitis, defer to the primary team. Treatment with IV antibiotics. Meth abuse, strongly recommended to quit. Currently sedated and intubated Atrial flutter with 2-1 AV block. Refractory to medical therapy with IV Cardizem. Patient is on Eliquis. Cardioversion is recommended. 1 percent risk of stroke was discussed. Cardioversion was performed with anesthesia support on 12/07/2019. Underwent ablation on December 12, 2019, currently in sinus rhythm Recent Acute stroke, status post thrombolytics, resolution. Will require rehabilitation. Previous admission showed Positive cardiac enzymes. Coronary angiography is contraindicated in an acute stroke for at least a month from the index event which was on 11/10/2019. I briefly discussed with the patient about coronary angiography before discharge. Smoking, smoking cessation was strongly recommended. DM, defer to the primary team. HTN, continue to monitor blood pressure Hyperlipidemia, high-dose Lipitor therapy. RBBB, continue to follow. 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 LVH on EKG. Cardiomyopathy of unknown origin. Likely nonischemic. However patient had positive cardiac enzymes on recent admission. Therefore coronary angiography was recommended. However was delayed until end of November. Clinical Quality Measures DVT/VTE Risk/Contraindication: Risk Factor Score Per Nursin RFS Level Per Nursing on Admit: 4+=Very High NKIA SOSA MD Dec 14, 2019 11:48
--- NOTE | 2019-12-14 13:46 | Progress Note - Hospitalist ---
Subjective HPI/CC On Admission Date Seen by Provider: Dec 14, 2019 Time Seen by Provider: 08:15 Subjective/Events-last exam Patient sedated on vent staff report no difficulty with finding another event on dip or van slowly coming down on oxygen but requiring 14 cm of water of PEEP. Patient has been COVID negative. No fever noted and patient is remained in sinus rhythm post-ablation. Focused Exam Time of Focused Exam: 02:40 Objective Exam Vital Signs Vital Signs Date Time Temp Pulse Resp B/P (MAP) Pulse Ox O2 Delivery O2 Flow Rate FiO2 12/14/19 13:27 73 149/91 12/14/19 12:00 35.7 12/14/19 12:00 17 97 Mechanical Ventilator 40.00 12/14/19 10:57 45 Capillary Refill : Less Than 3 SecondsLess Than 3 Seconds General Appearance: No Apparent Distress, Chronically ill Respiratory: Other (Respirations nonlabored on mechanical ventilation dimin ished breath sounds posteriorly anteriorly the chest sounds relatively clear) Cardiovascular: Regular Rate, Rhythm, No Edema, No Gallop, No JVD, No Murmur, Normal Peripheral Pulses Gastrointestinal: Normal Bowel Sounds, No Organomegaly, No Pulsatile Mass, Soft, Other (No reaction to abdominal palpation) Extremity: Other (Extremities warm no mottling 1-2+ upper and lower extremity edema noted) Results/Procedures Lab Laboratory Tests 12/14/19 02:54 Patient resulted labs reviewed. Assessment/Plan Assessment and Plan Assess & Plan/Chief Complaint A/P 1. Respiratory failure post successful A. fib ablation in individual with likely underlying significant COPD possible component of diastolic heart failure continue mechanical ventilation defer heart failure to cardiology. 2. Suspect that acute orchitis is a little more likely than scrotal cellulitis. Still has significant scrotal edema but no erythema or induration not likely contributing to current respiratory failure. 2. Atrial fibrillation with rapid ventricular response successful ablation from a rhythm standpoint. 3. Type II diabetes has been under good control over the past several days continue current therapy. 4. Hypomagnesemia and hypocalcemia being replaced. Critical Care Critically Ill Patient Clinical Quality Measures DVT/VTE Risk/Contraindication: Risk Factor Score Per Nursin RFS Level Per Nursing on Admit: 4+=Very High ALFREDO SHOOK MD Dec 14, 2019 13:46
--- NOTE | 2019-12-14 14:44 | NUR ---
peep turned down to 8 per EICU orders. pt is tolerating at this time. Addendum: 12/14/19 at 1444 by AGATA CHI RT Amended: Links added.
--- NOTE | 2019-12-14 19:00 | NUR ---
RNS' IN ROOM, PEEP TO 8 SPO2 HOLDING AT 93% Addendum: 12/14/19 at 1901 by TALON DELA CRUZ RT Amended: Links added.
[2019-12-15] VITALS (30 sets, daily range): BP systolic 123–159; BP diastolic 77–101
[2019-12-15] MEDS: PROPOFOL DRIP (ICU) 100 ML IV SCH ×4 (00:11→08:35)
[2019-12-15 02:35] LABS: ABG BASE EXCESS 10.7 MMOL/L (-2.5-2.5); ABG OXYGEN SATURATION 93 % (94-100); ABG PCO2 51 MMHG (35-45); ABG PH 7.45 (7.37-7.43); ABG PO2 67 MMHG (79-93); ABG TCO2 36.8 MMOL/L (21.0-31.0)
[2019-12-15 02:36] LABS: ALLENS TEST POSITIVE; INSPIRED O2 35; PATIENT TEMP 36.6; VENTILATOR YES
[2019-12-15] MEDS: IPRATROPIUM INHALER (ATROVENT) 12.9 GM INH SCH ×4 (02:36→21:13)
[2019-12-15] MEDS: RT-ALBUTEROL INHALER HFA (VENTOLIN HFA) 8 GM IH SCH ×4 (02:36→21:12)
[2019-12-15 03:25] LABS: ABG BASE EXCESS 7.8 MMOL/L (-2.5-2.5); ABG PCO2 66 MMHG (35-45); ABG PO2 56 MMHG (79-93); ABG TCO2 35.9 MMOL/L (21.0-31.0)
[2019-12-15 03:30] LABS: ABG OXYGEN SATURATION 94 % (94-100); ALLENS TEST POSITIVE; INSPIRED O2 35; PATIENT TEMP 36.6; VENTILATOR YES
[2019-12-15 03:31] LABS: ABG PH 7.33 (7.37-7.43)
--- NOTE | 2019-12-15 03:57 | NUR ---
CALLED [employer] AND INFORMED DR. LUIS THAT SEDATION VACATION AND WEANING WERE COMPLETE AND REVIEWED ABG RESULTS, INCLUDING CRITICAL PH OF 7.33 AND CURRENT VENT SETTINGS OF PEEP-5 AND FIO2 65%. NO NEW ORDERS AT THIS TIME.
[2019-12-15] MEDS: FUROSEMIDE 40 MG/4 ML INJ (LASIX) IVP SCH (06:20)
[2019-12-15] MEDS: PIPERACILLIN/TAZOBACTAM (BULK) 4.5 GM in NS (IVPB) 100 ML IV SCH ×3 (06:21→22:08)
[2019-12-15 06:58] LABS: BASOPHILS # (AUTO) 0.1 10^3/uL (0.0-0.1); BASOPHILS % (AUTO) 1 % (0-10); EOSINOPHILS # (AUTO) 0.2 10^3/uL (0.0-0.3); EOSINOPHILS % (AUTO) 3 % (0-10); HEMATOCRIT 39 % (40-54); HEMOGLOBIN 11.7 G/DL (13.3-17.7); LYMPHOCYTES # (AUTO) 1.1 X 10^3 (1.0-4.0); LYMPHOCYTES % (AUTO) 14 % (12-44); MEAN CORPUSCULAR HEMOGLOBIN 27 PG (25-34); MEAN CORPUSCULAR HGB CONC 30 G/DL (32-36); MEAN CORPUSCULAR VOLUME 90 FL (80-99); MEAN PLATELET VOLUME 9.9 FL (7.4-10.4); MONOCYTES # (AUTO) 0.7 X 10^3 (0.0-1.0); MONOCYTES % (AUTO) 8 % (0-12); NEUTROPHILS # (AUTO) 5.7 X 10^3 (1.8-7.8); NEUTROPHILS % (AUTO) 74 % (42-75); PLATELET COUNT 262 10^3/uL (130-400); RED CELL DISTRIBUTION WIDTH 15.6 % (10.0-14.5); WHITE BLOOD COUNT 7.8 10^3/uL (4.3-11.0)
[2019-12-15 07:03] LABS: CHLORIDE 105 MMOL/L (98-107); SODIUM 150 MMOL/L (135-145)
[2019-12-15 07:04] LABS: CALCIUM 9.2 MG/DL (8.5-10.1)
[2019-12-15 07:05] LABS: GLUCOSE 61 MG/DL (70-105); TRIGLYCERIDES 121 MG/DL (<150)
[2019-12-15 07:06] LABS: CARBON DIOXIDE 32 MMOL/L (21-32)
[2019-12-15] MEDS: inSUlin ASPART (NovoLOG) 1 UNIT/0.01 ML (CHARGE PER UNIT) SC SCH ×3 (07:08→18:06)
[2019-12-15] MEDS ORDERED: DEXTROSE 50% 50 ML (IMS) SYR ONE (07:08)
[2019-12-15 07:09] LABS: CREATININE SERUM 0.84 MG/DL (0.60-1.30); GFR ESTIMATED > 60; PHOSPHORUS 4.1 MG/DL (2.3-4.7)
[2019-12-15 07:10] LABS: BUN/CREATININE RATIO 17
[2019-12-15 07:12] LABS: MAGNESIUM 2.1 MG/DL (1.6-2.4)
[2019-12-15] MEDS ORDERED: DEXTROSE 50% 50 ML (IMS) SYR IV NR (07:15)
[2019-12-15] MEDS: MAGNESIUM 1 GM/100 ML IVPB 100 ML IV SCH (07:21)
[2019-12-15] MEDS: KCL 20 MEQ TAB (K-DUR) PO SCH (07:24)
[2019-12-15] MEDS: POTASSIUM CL 10MEQ/50ML IVPB 50 ML IV SCH ×7 (07:24→21:31)
[2019-12-15] MEDS ORDERED: POTASSIUM CL 10MEQ/50ML IVPB 50 ML IV ONE (07:30)
--- NOTE | 2019-12-15 07:33 | Diagnostic Imaging Report ---
INDICATION: Dyspnea. Comparison is made with prior examination from 12/14/2019. FINDINGS: There is cardiomegaly. There is some venous congestion. There are bibasilar infiltrates. The lines and tubes are in satisfactory position. There is no pneumothorax. IMPRESSION: Bibasilar pulmonary infiltrates. Cardiomegaly and some central pulmonary venous congestion. Dictated by: Dictated on workstation # [id number]
[2019-12-15] MEDS: NICOTINE PATCH REMOVAL TP SCH (08:37)
[2019-12-15] MEDS: FAMOTIDINE 20MG/2ML IV (PEPCID) IVP SCH ×2 (08:37→19:38)
[2019-12-15] MEDS: CLOPIDOGREL 75 MG (PLAVIX) TABLET PO SCH (08:50)
[2019-12-15] MEDS: APIXABAN 5 MG (ELIQUIS) TABLET PO SCH ×2 (08:50→19:38)
[2019-12-15] MEDS: NICOTINE 21 MG (NICODERM) PATCH TD SCH (08:50)
[2019-12-15] MEDS ORDERED: NS IV 1000 ML 1,000 ML IV SCH (10:00)
[2019-12-15 11:28] LABS: ABG BASE EXCESS 11.1 MMOL/L (-2.5-2.5); ABG OXYGEN SATURATION 94 % (94-100); ABG PCO2 48 MMHG (35-45); ABG PH 7.48 (7.37-7.43); ABG PO2 71 MMHG (79-93); ABG TCO2 36.8 MMOL/L (21.0-31.0)
[2019-12-15 11:42] LABS: ALLENS TEST YES-POS; PATIENT TEMP 98.4; VENTILATOR YES
[2019-12-15] MEDS ORDERED: DexMEDEtomidine 250 ML DRIP 250 ML IV ONE (12:49)
[2019-12-15] MEDS: NS IV 1000 ML 1,000 ML IV SCH ×2 (12:53→17:17)
[2019-12-15] MEDS: DexMEDEtomidine 250 ML DRIP 250 ML IV SCH ×2 (12:54→19:38)
--- NOTE | 2019-12-15 12:56 | Progress Note - Hospitalist ---
Subjective HPI/CC On Admission Date Seen by Provider: Dec 15, 2019 Time Seen by Provider: 10:30 Subjective/Events-last exam Patient ventilating easily sedated mucous membranes appear dry Focused Exam Time of Focused Exam: 02:40 Objective Exam Vital Signs Vital Signs Date Time Temp Pulse Resp B/P (MAP) Pulse Ox O2 Delivery O2 Flow Rate FiO2 12/15/19 12:00 36.8 12/15/19 11:00 73 16 152/90 (110) 97 Mechanical Ventilator 55.00 12/15/19 10:06 55 Capillary Refill : Less Than 3 SecondsLess Than 3 Seconds General Appearance: No Apparent Distress, Chronically ill Respiratory: Other (Sonorous breath sounds diminished breath sounds in bases no wheezing appreciated no significant rhonchi) Cardiovascular: Regular Rate, Rhythm, No Gallop, No JVD, No Murmur Gastrointestinal: Normal Bowel Sounds, No Organomegaly, No Pulsatile Mass, Non Tender (No reaction to abdominal palpation), Soft Extremity: Other (1+ brawny pretibial edema and pedal edema several small vesicles right thigh minimal erythema linear not grouped no purulence noted.) Results/Procedures Lab Laboratory Tests 12/15/19 06:20 12/15/19 06:50 Patient resulted labs reviewed. Assessment/Plan Assessment and Plan Assess & Plan/Chief Complaint A/P 1. Respiratory failure post successful A. fib ablation in individual with likely underlying significant COPD possible component of diastolic heart failure. ARDS unlikely patient currently exhibiting mild respiratory acidosis will increase tidal volume from 450-550 continue rate of 18 with repeat ABG in 30 minutes.. 2. Suspect that acute orchitis is a little more likely than scrotal cellulitis. Still has significant scrotal edema but no erythema or induration not likely contributing to current respiratory failure. 2. Atrial fibrillation with rapid ventricular response successful ablation from a rhythm standpoint. 3. Type II diabetes has been under good control over the past several days continue current therapy. 4. Hypomagnesemia and hypocalcemia being replaced. 5. Hypernatremia sodium level CL due to free water deficit I will initiate quarter normal saline with repeat basic metabolic panel later today hold Lasix. Critical Care Critically Ill Patient Clinical Quality Measures DVT/VTE Risk/Contraindication: Risk Factor Score Per Nursin RFS Level Per Nursing on Admit: 4+=Very High ALFREDO SHOOK MD Dec 15, 2019 12:56
--- NOTE | 2019-12-15 13:07 | Cardiology Progress Note ---
Subjective Date Seen by Provider: Dec 15, 2019 Time Seen by Provider: 13:06 Subjective/Events-last exam Patient is sedated and intubated. Being weaned Review of Systems General: Other (intubated, awake, not following commands, unable to provide review of systems) Focused Exam Time of Focused Exam: 02:40 Objective-Cardiology Exam Last Set of Vital Signs Vital Signs 12/15/19 12/15/19 12/15/19 10:06 12:00 12:54 Temp 36.8 Pulse 73 Resp 22 B/P (MAP) 152/90 Pulse Ox 100 O2 Delivery Mechanical Ventilator O2 Flow Rate 55.00 FiO2 55 Capillary Refill : Less Than 3 SecondsLess Than 3 Seconds I&O Intake and Output 12/15/19 00:00 Intake Total 400 ml Output Total 9225 ml Balance -8825 ml Intake Oral 0 ml IV Total 400 ml Output Urine Total 9125 ml Gastric Drainage Total 100 ml General: Other (ventilatory dependent) HEENT: Atraumatic, PERRLA Neck: Supple Lungs: Clear to Auscultation Heart: Regular Rate, Normal S1, Normal S2 Abdomen: Normal Bowel Sounds Extremities: No Clubbing Skin: No Rashes Neuro: Other (intubated, not following commands) Psych/Mental Status: Other (intubated, not following commands) Results Lab Laboratory Tests 12/15/19 06:20 12/15/19 06:50 A/P-Cardiology Admission Diagnosis Acute respiratory failure Atrial flutter Congestive heart failure, acute left ventricular systolic dysfunction, nonischemic cardiomyopathy Hypertension Assessment/Plan Respiratory failure, intubated, managed by primary care team Coronary angiogram done by Dr. Storm on December 12, 2019 showing mild coronary artery disease nonobstructive disease Congestive heart failure, acute on chronic left ventricular systolic dysfunction, ejection fraction 20 percent, nonischemic cardiomyopathy, managed with Dr. Storm Scrotal swelling and cellulitis, defer to the primary team. Treatment with IV antibiotics. Meth abuse, strongly recommended to quit. Currently sedated and intubated Atrial flutter with 2-1 AV block. Refractory to medical therapy with IV Cardizem. Patient is on Eliquis. Cardioversion is recommended. 1 percent risk of stroke was discussed. Cardioversion was performed with anesthesia support on 12/07/2019. Underwent ablation on December 12, 2019, currently in sinus rhythm Recent Acute stroke, status post thrombolytics, resolution. Will require rehabilitation. Previous admission showed Positive cardiac enzymes. Coronary angiography is contraindicated in an acute stroke for at least a month from the index event which was on 11/10/2019. I briefly discussed with the patient about coronary angiography before discharge. Smoking, smoking cessation was strongly recommended. DM, defer to the primary team. HTN, continue to monitor blood pressure Hyperlipidemia, high-dose Lipitor therapy. RBBB, left anterior fascicular block. Continue to monitor Clinical Quality Measures DVT/VTE Risk/Contraindication: Risk Factor Score Per Nursin RFS Level Per Nursing on Admit: 4+=Very High NIKA SOSA MD Dec 15, 2019 1:07 pm
[2019-12-15 18:03] LABS: BUN/CREATININE RATIO 18; CALCIUM 8.7 MG/DL (8.5-10.1); CARBON DIOXIDE 30 MMOL/L (21-32); CHLORIDE 108 MMOL/L (98-107); CREATININE SERUM 0.79 MG/DL (0.60-1.30); GFR ESTIMATED > 60; GLUCOSE 65 MG/DL (70-105); POTASSIUM 3.1 MMOL/L (3.6-5.0); SODIUM 149 MMOL/L (135-145)
[2019-12-16] VITALS (28 sets, daily range): BP systolic 133–162; BP diastolic 72–112
[2019-12-16] MEDS: inSUlin ASPART (NovoLOG) 1 UNIT/0.01 ML (CHARGE PER UNIT) SC SCH ×4 (00:13→18:26)
[2019-12-16] MEDS: DexMEDEtomidine 250 ML DRIP 250 ML IV SCH ×3 (02:14→22:28)
[2019-12-16] MEDS: NS IV 1000 ML 1,000 ML IV SCH (03:07)
[2019-12-16 03:49] LABS: BASOPHILS # (AUTO) 0.1 10^3/uL (0.0-0.1); BASOPHILS % (AUTO) 1 % (0-10); EOSINOPHILS # (AUTO) 0.2 10^3/uL (0.0-0.3); EOSINOPHILS % (AUTO) 3 % (0-10); HEMATOCRIT 38 % (40-54); HEMOGLOBIN 11.7 G/DL (13.3-17.7); LYMPHOCYTES # (AUTO) 1.5 X 10^3 (1.0-4.0); LYMPHOCYTES % (AUTO) 19 % (12-44); MEAN CORPUSCULAR HEMOGLOBIN 27 PG (25-34); MEAN CORPUSCULAR HGB CONC 31 G/DL (32-36); MEAN CORPUSCULAR VOLUME 90 FL (80-99); MEAN PLATELET VOLUME 10.1 FL (7.4-10.4); MONOCYTES # (AUTO) 0.7 X 10^3 (0.0-1.0); MONOCYTES % (AUTO) 9 % (0-12); NEUTROPHILS # (AUTO) 5.4 X 10^3 (1.8-7.8); NEUTROPHILS % (AUTO) 69 % (42-75); PLATELET COUNT 237 10^3/uL (130-400); RED CELL DISTRIBUTION WIDTH 15.3 % (10.0-14.5); WHITE BLOOD COUNT 7.8 10^3/uL (4.3-11.0)
[2019-12-16 03:49] LABS: ABG BASE EXCESS 5.9 MMOL/L (-2.5-2.5); ABG OXYGEN SATURATION 93 % (94-100); ABG PCO2 42 MMHG (35-45); ABG PH 7.47 (7.37-7.43); ABG PO2 69 MMHG (79-93)
[2019-12-16 03:50] LABS: ALLENS TEST POSITIVE; INSPIRED O2 25; PATIENT TEMP 36.7; VENTILATOR YES
[2019-12-16 04:04] LABS: CHLORIDE 109 MMOL/L (98-107); POTASSIUM 3.3 MMOL/L (3.6-5.0); SODIUM 148 MMOL/L (135-145)
[2019-12-16 04:05] LABS: CALCIUM 8.4 MG/DL (8.5-10.1); GLUCOSE 72 MG/DL (70-105)
[2019-12-16 04:06] LABS: TRIGLYCERIDES 126 MG/DL (<150)
[2019-12-16 04:07] LABS: CARBON DIOXIDE 25 MMOL/L (21-32)
[2019-12-16 04:09] LABS: GFR ESTIMATED > 60; PHOSPHORUS 3.3 MG/DL (2.3-4.7)
[2019-12-16 04:10] LABS: BUN/CREATININE RATIO 20
[2019-12-16 04:12] LABS: MAGNESIUM 1.9 MG/DL (1.6-2.4)
[2019-12-16] MEDS: POTASSIUM CL 10MEQ/50ML IVPB 50 ML IV SCH ×8 (04:17→11:15)
[2019-12-16] MEDS: KCL 20 MEQ TAB (K-DUR) PO SCH (04:17)
[2019-12-16] MEDS: MAGNESIUM 1 GM/100 ML IVPB 100 ML IV SCH (04:17)
--- NOTE | 2019-12-16 05:34 | Pulmonary Progress Note ---
Subjective Time Seen by a Provider: 05:29 Sepsis Event Evaluation Height, Weight, BMI Height: 5'11.00" Weight: 358lbs. 1.0oz. 162.792136gt; 39.96 BMI Method: Focused Exam Time of Focused Exam: 02:40 Exam Exam Vital Signs Date Time Temp Pulse Resp B/P (MAP) Pulse Ox O2 Delivery O2 Flow Rate FiO2 12/16/19 04:28 Mechanical Ventilator 40.00 12/16/19 03:47 95 Mechanical Ventilator 25 12/16/19 03:44 Mechanical Ventilator 25.00 12/16/19 03:00 62 18 146/86 (106) 92 Mechanical Ventilator 21.00 12/16/19 02:45 Mechanical Ventilator 21.00 12/16/19 02:39 63 19 92 21 12/16/19 02:14 142/86 12/16/19 02:00 62 18 142/86 (104) 93 Mechanical Ventilator 25.00 12/16/19 01:00 64 12/16/19 01:00 61 15 143/86 (105) 92 Mechanical Ventilator 25.00 12/16/19 00:11 95 Mechanical Ventilator 25 12/16/19 00:09 36.5 Mechanical Ventilator 25.00 12/16/19 00:00 66 19 148/92 (110) 98 Mechanical Ventilator 35.00 12/15/19 23:00 62 18 143/95 (111) 99 Mechanical Ventilator 35.00 12/15/19 22:00 62 15 132/87 (102) 99 Mechanical Ventilator 35.00 12/15/19 21:32 Mechanical Ventilator 35.00 12/15/19 21:13 60 16 100 45 12/15/19 21:13 60 16 100 45 12/15/19 21:00 63 15 131/89 (103) 100 Mechanical Ventilator 45.00 12/15/19 20:00 100 Mechanical Ventilator 55 12/15/19 20:00 64 16 129/86 (100) 100 Mechanical Ventilator 45.00 12/15/19 19:55 Mechanical Ventilator 45.00 12/15/19 19:38 36.7 12/15/19 19:38 131/88 12/15/19 19:00 65 17 132/86 (101) 100 Mechanical Ventilator 55.00 12/15/19 19:00 65 12/15/19 18:22 63 18 99 55 12/15/19 18:00 65 16 128/82 (97) 99 Mechanical Ventilator 55.00 12/15/19 17:00 64 15 136/87 (103) 96 Mechanical Ventilator 55.00 12/15/19 16:00 37.1 12/15/19 16:00 62 15 134/85 (101) 96 Mechanical Ventilator 55.00 12/15/19 15:37 94 Mechanical Ventilator 55 12/15/19 15:00 62 15 130/85 (100) 92 Mechanical Ventilator 55.00 12/15/19 14:36 63 16 93 55 12/15/19 14:00 67 15 132/82 (99) 94 Mechanical Ventilator 55.00 12/15/19 13:15 79 12/15/19 13:00 85 35 158/101 (120) 100 Mechanical Ventilator 55.00 12/15/19 12:54 73 152/90 12/15/19 12:00 94 Mechanical Ventilator 55 12/15/19 12:00 77 22 156/95 (115) 100 Mechanical Ventilator 55.00 12/15/19 12:00 36.8 12/15/19 11:00 73 16 152/90 (110) 97 Mechanical Ventilator 55.00 12/15/19 10:06 70 16 95 55 12/15/19 10:00 71 15 152/90 (110) 95 Mechanical Ventilator 55.00 12/15/19 09:00 72 18 153/93 (113) 95 Mechanical Ventilator 55.00 12/15/19 08:35 70 135/77 12/15/19 08:05 70 16 92 55 12/15/19 08:00 94 Mechanical Ventilator 55 12/15/19 08:00 72 17 143/81 (101) 94 Mechanical Ventilator 55.00 12/15/19 08:00 36.8 12/15/19 07:48 70 16 92 55 12/15/19 07:18 72 12/15/19 07:00 70 17 146/86 (106) 93 Mechanical Ventilator 65.00 12/15/19 06:33 Mechanical Ventilator 55.00 12/15/19 06:20 75 150/94 12/15/19 06:00 73 16 151/91 (111) 94 Mechanical Ventilator 65.00 l I & O 12/16/19 07:00 Intake Total 1850 ml Output Total 2880 ml Balance -1030 ml Height & Weight Height: 5'11.00" Weight: 358lbs. 1.0oz. 162.495998ug; 39.96 BMI Method: General Appearance: No Apparent Distress, Chronically ill, Other (pt is intubated currently) HEENT: Other (intubated) Respiratory: Other (Sonorous breath sounds diminished breath sounds in bases no wheezing appreciated no significant rhonchi) Cardiovascular: Regular Rate, Rhythm, No Gallop, No JVD, No Murmur Capillary Refill: Greater Than 3 Seconds Gastrointestinal: soft, no organomegaly, hernia (incarcerated umbilical hernia) Extremity: Other (1+ brawny pretibial edema and pedal edema several small vesicles right thigh minimal erythema linear not grouped no purulence noted.) Neurologic/Psychiatric: Alert, Other (patient sedated) Skin: Normal Color, Warm/Dry, Other (pt still has very severe scrotal edema, not improved at all. May even be slightly red, but no changes. Doubt there is an abscess just edema.) Lymphatic: No Adenopathy Results Lab Laboratory Tests 12/15/19 06:20 12/15/19 06:50 12/15/19 17:36 12/16/19 03:25 Assessment/Plan Assessment/Plan Acute respiratory failure -Currenty on vent s/p EP study -Extubate pt Afib s/p cardioversion 12/06 Congestive heart failure with EF of 20% --Give Lasix 60mg x 1 prior to extubation Hypernatremia -Currently IVF at 100cc/hr with NS -Change to LR at KVO methamphetamine and Marijuana use -Education EP 12/11 -Presented to ICU after EP study intubated DM II VISHNU DE LOS SANTOS DO Dec 16, 2019 05:34
[2019-12-16] MEDS ORDERED: FUROSEMIDE 40 MG/4 ML INJ (LASIX) IVP ONE (05:45)
--- NOTE | 2019-12-16 05:45 | Pulmonary Consultation ---
History of Present Illness History of Present Illness Date Seen by Provider: Dec 16, 2019 Time Seen by Provider: 05:44 Date of Admission Allergies and Home Medications Allergies Coded Allergies: No Known Drug Allergies (Unverified , 02/26/14) Home Medications Apixaban 5 Mg Tablet, 5 MG PO BID, (Reported) Atorvastatin Calcium 80 Mg Tablet, 80 MG PO HS, (Reported) Clopidogrel Bisulfate 75 Mg Tablet, 75 MG PO DAILY, (Reported) Furosemide 40 Mg Tablet, 40 MG PO BID, (Reported) Lisinopril 20 Mg Tablet, 20 MG PO DAILY, (Reported) Metformin HCl 1,000 Mg Tablet, 1,000 MG PO BID, (Reported) Metoprolol Tartrate 50 Mg Tablet, 50 MG PO BID, (Reported) Potassium Chloride 20 Meq Tab.er.prt, 20 MEQ PO BID, (Reported) Past Mnpbqpu-Lkpgkm-Pttulo Hx Patient Social History Alcohol Use: Regular Use Number of Drinks Today: 1 Alcohol Beverage of Choice: Beer Recreational Drug Use: No (denies, but urine drug screen positive for methamphetamine and THC 12/05/19) Type Used: Cigarettes Recent Foreign Travel: No Contact w/Someone Who Travel: No Recent Infectious Disease Expo: No Recent Hopitalizations: No Physical Abuse: No Sexual Abuse: No Mistreated: No Fear: No Immunizations Up To Date Tetanus Booster (TDap): Unknown Seasonal Allergies Seasonal Allergies: No Past Medical History Surgeries: No Respiratory: No Sleep Apnea Cardiac: Yes High Cholesterol, Hypertension Neurological: Yes Stroke, TIA Reproductive Disorders: No Sexually Transmitted Disease: No HIV/AIDS: No Genitourinary: No Gastrointestinal: No Musculoskeletal: Yes Gout Endocrine: Yes (TYPE 2 DM) Diabetes, Insulin dep Loss of Vision: Denies Hearing Impairment: Denies Cancer: No Psychosocial: No Integumentary: No Blood Disorders: No Adverse Reaction/Blood Tranf: No Family Medical History Coronary thrombosis 19 FATHER Diabetes mellitus G8 BROTHER FH: lung cancer 19 MOTHER (MOTHER FROM LUNG CA) Hypercholesterolemia 19 FATHER Myocardial infarction 19 FATHER ( FROM [place]) Heart Disease, Cancer, Diabetes, Hypertension Review of Systems Time Seen by Provider: 05:45 Sepsis Event Evaluation Height, Weight, BMI Height: 5'11.00" Weight: 358lbs. 1.0oz. 162.007271lv; 39.96 BMI Method: Exam Exam Vital Signs Date Time Temp Pulse Resp B/P (MAP) Pulse Ox O2 Delivery O2 Flow Rate FiO2 12/16/19 04:28 Mechanical Ventilator 40.00 12/16/19 03:47 95 Mechanical Ventilator 25 12/16/19 03:44 Mechanical Ventilator 25.00 12/16/19 03:00 62 18 146/86 (106) 92 Mechanical Ventilator 21.00 12/16/19 02:45 Mechanical Ventilator 21.00 12/16/19 02:39 63 19 92 21 12/16/19 02:14 142/86 12/16/19 02:00 62 18 142/86 (104) 93 Mechanical Ventilator 25.00 12/16/19 01:00 64 12/16/19 01:00 61 15 143/86 (105) 92 Mechanical Ventilator 25.00 12/16/19 00:11 95 Mechanical Ventilator 25 12/16/19 00:09 36.5 Mechanical Ventilator 25.00 12/16/19 00:00 66 19 148/92 (110) 98 Mechanical Ventilator 35.00 12/15/19 23:00 62 18 143/95 (111) 99 Mechanical Ventilator 35.00 12/15/19 22:00 62 15 132/87 (102) 99 Mechanical Ventilator 35.00 12/15/19 21:32 Mechanical Ventilator 35.00 12/15/19 21:13 60 16 100 45 12/15/19 21:13 60 16 100 45 12/15/19 21:00 63 15 131/89 (103) 100 Mechanical Ventilator 45.00 12/15/19 20:00 100 Mechanical Ventilator 55 12/15/19 20:00 64 16 129/86 (100) 100 Mechanical Ventilator 45.00 12/15/19 19:55 Mechanical Ventilator 45.00 12/15/19 19:38 36.7 12/15/19 19:38 131/88 12/15/19 19:00 65 17 132/86 (101) 100 Mechanical Ventilator 55.00 12/15/19 19:00 65 12/15/19 18:22 63 18 99 55 12/15/19 18:00 65 16 128/82 (97) 99 Mechanical Ventilator 55.00 12/15/19 17:00 64 15 136/87 (103) 96 Mechanical Ventilator 55.00 12/15/19 16:00 37.1 12/15/19 16:00 62 15 134/85 (101) 96 Mechanical Ventilator 55.00 12/15/19 15:37 94 Mechanical Ventilator 55 12/15/19 15:00 62 15 130/85 (100) 92 Mechanical Ventilator 55.00 12/15/19 14:36 63 16 93 55 12/15/19 14:00 67 15 132/82 (99) 94 Mechanical Ventilator 55.00 12/15/19 13:15 79 12/15/19 13:00 85 35 158/101 (120) 100 Mechanical Ventilator 55.00 12/15/19 12:54 73 152/90 12/15/19 12:00 94 Mechanical Ventilator 55 12/15/19 12:00 77 22 156/95 (115) 100 Mechanical Ventilator 55.00 12/15/19 12:00 36.8 12/15/19 11:00 73 16 152/90 (110) 97 Mechanical Ventilator 55.00 12/15/19 10:06 70 16 95 55 12/15/19 10:00 71 15 152/90 (110) 95 Mechanical Ventilator 55.00 12/15/19 09:00 72 18 153/93 (113) 95 Mechanical Ventilator 55.00 12/15/19 08:35 70 135/77 12/15/19 08:05 70 16 92 55 12/15/19 08:00 94 Mechanical Ventilator 55 12/15/19 08:00 72 17 143/81 (101) 94 Mechanical Ventilator 55.00 12/15/19 08:00 36.8 12/15/19 07:48 70 16 92 55 12/15/19 07:18 72 12/15/19 07:00 70 17 146/86 (106) 93 Mechanical Ventilator 65.00 12/15/19 06:33 Mechanical Ventilator 55.00 12/15/19 06:20 75 150/94 12/15/19 06:00 73 16 151/91 (111) 94 Mechanical Ventilator 65.00 I & O 12/16/19 07:00 Intake Total 1850 ml Output Total 2880 ml Balance -1030 ml Height & Weight Height: 5'11.00" Weight: 358lbs. 1.0oz. 162.475210mc; 39.96 BMI Method: General Appearance: No Apparent Distress, Chronically ill HEENT: Other (intubated) Respiratory: Other (Sonorous breath sounds diminished breath sounds in bases no wheezing appreciated no significant rhonchi) Cardiovascular: Regular Rate, Rhythm, No Gallop, No JVD, No Murmur Capillary Refill: Greater Than 3 Seconds Gastrointestinal: soft, no organomegaly, hernia (incarcerated umbilical hernia) Extremity: Other (1+ brawny pretibial edema and pedal edema several small vesicles right thigh minimal erythema linear not grouped no purulence noted.) Neurologic/Psychiatric: Other (patient sedated) Skin: Other (pt still has very severe scrotal edema, not improved at all. May even be slightly red, but no changes. Doubt there is an abscess just edema.) Results Lab Laboratory Tests 12/15/19 06:20 12/15/19 06:50 12/15/19 17:36 12/16/19 03:25 Assessment/Plan Assessment/Plan Acute respiratory failure -Currenty on vent s/p EP study -Extubate pt Afib s/p cardioversion 12/06 Congestive heart failure with EF of 20% --Give Lasix 60mg x 1 prior to extubation Hypernatremia -Currently IVF at 100cc/hr with NS -Change to LR at [facility] methamphetamine and Marijuana use -Education EP 12/11 -Presented to ICU after EP study intubated DM II VISHNU DE LOS SANTOS DO Dec 16, 2019 05:45
[2019-12-16] MEDS: LACTATED RINGERS 1,000 ML IV SCH (05:52)
[2019-12-16] MEDS: PIPERACILLIN/TAZOBACTAM (BULK) 4.5 GM in NS (IVPB) 100 ML IV SCH ×3 (05:53→21:18)
[2019-12-16] MEDS: RT-ALBUTEROL INHALER HFA (VENTOLIN HFA) 8 GM IH SCH (06:35)
[2019-12-16] MEDS: IPRATROPIUM INHALER (ATROVENT) 12.9 GM INH SCH (06:35)
--- NOTE | 2019-12-16 06:50 | NUR ---
EXTUBATED PT TO 6 L NC.
--- NOTE | 2019-12-16 08:21 | Diagnostic Imaging Report ---
Indication: Shortness of breath Portable chest 3:28 AM ET tube projects over the trachea. NG tube enters the stomach. There is cardiomegaly with pulmonary vascular congestion and a right pleural effusion. IMPRESSION: Congestive heart failure. The left pleural effusion appears smaller compared to the previous day. Dictated by: Dictated on workstation # [id number]
--- NOTE | 2019-12-16 09:42 | Cardiology Progress Note ---
Subjective Date Seen by Provider: Dec 16, 2019 Time Seen by Provider: 09:40 Subjective/Events-last exam Patient is extubated, doing better, on C Pap Review of Systems General: No Chills, No Night Sweats; Fatigue, Malaise; No Appetite, No Other HEENT: No Head Aches, No Visual Changes, No Eye Pain, No Ear Pain, No Dysphasia, No Sinus Congestion, No Post Nasal Drip, No Sore Throat, No Other Pulmonary: Dyspnea; No Cough, No Pleuritic Chest Pain, No Other Cardiovascular: Edema; No: Chest Pain, Palpitations, Orthopnea, Paroxysmal Noc. Dyspnea, Lt Headedness, Other Focused Exam Time of Focused Exam: 02:40 Objective-Cardiology Exam Last Set of Vital Signs Vital Signs 12/16/19 12/16/19 12/16/19 03:47 04:00 09:00 Temp 36.7 Pulse 69 Resp 24 B/P (MAP) 147/99 (115) Pulse Ox 96 O2 Delivery NIV Bilevel O2 Flow Rate 30.00 FiO2 25 Capillary Refill : Less Than 3 SecondsGreater Than 3 Seconds I&O Intake and Output 12/16/19 00:00 Intake Total 2000 ml Output Total 6175 ml Balance -4175 ml Intake Oral 0 ml IV Total 1940 ml Other 60 ml Output Urine Total 5475 ml Gastric Drainage Total 700 ml General: Alert, Cooperative, Mild Distress HEENT: Atraumatic, PERRLA Neck: Supple Lungs: Normal Air Movement, Other (bilateral rhonchi) Heart: Regular Rate, Normal S1, Normal S2 Abdomen: Normal Bowel Sounds Extremities: No Clubbing Skin: No Rashes Neuro: Other (on C Pap) Psych/Mental Status: Other (on C Pap) Results Lab Laboratory Tests 12/15/19 17:36 12/16/19 03:25 A/P-Cardiology Admission Diagnosis Acute respiratory failure Atrial flutter Congestive heart failure, acute left ventricular systolic dysfunction, nonischemic cardiomyopathy Hypertension Assessment/Plan Status post acute respiratory failure, extubated at this time, on C Pap. Managed by primary care team Coronary angiogram done by Dr. Storm on December 12, 2019 showing mild coronary artery disease nonobstructive disease Congestive heart failure, acute on chronic left ventricular systolic dysfunction, ejection fraction 20 percent, nonischemic cardiomyopathy, managed with Dr. Storm, back on Lasix 20 mg IV twice a day next Hypernatremia, Lasix dose was decreased. Continue to monitor Scrotal swelling and cellulitis, defer to the primary team. Treatment with IV antibiotics. Meth abuse, strongly recommended to quit. Currently sedated and intubated Atrial flutter with 2-1 AV block. Refractory to medical therapy with IV Cardi zem. Patient is on Eliquis. Cardioversion is recommended. 1 percent risk of stroke was discussed. Cardioversion was performed with anesthesia support on 12/07/2019. Underwent ablation on December 12, 2019, currently in sinus rhythm Recent Acute stroke, status post thrombolytics, resolution. Will require rehabilitation. Previous admission showed Positive cardiac enzymes. Coronary angiography is contraindicated in an acute stroke for at least a month from the index event which was on 11/10/2019. I briefly discussed with the patient about coronary angiography before discharge. Smoking, smoking cessation was strongly recommended. DM, defer to the primary team. HTN, continue to monitor blood pressure Hyperlipidemia, high-dose Lipitor therapy. RBBB, left anterior fascicular block. Continue to monitor Clinical Quality Measures DVT/VTE Risk/Contraindication: Risk Factor Score Per Nursin RFS Level Per Nursing on Admit: 4+=Very High NIKA SOSA MD Dec 16, 2019 9:42 am
[2019-12-16] MEDS: CLOPIDOGREL 75 MG (PLAVIX) TABLET PO SCH (10:12)
[2019-12-16] MEDS: APIXABAN 5 MG (ELIQUIS) TABLET PO SCH ×2 (10:13→21:18)
[2019-12-16] MEDS: NICOTINE 21 MG (NICODERM) PATCH TD SCH (10:13)
[2019-12-16] MEDS: FAMOTIDINE 20MG/2ML IV (PEPCID) IVP SCH (10:13)
[2019-12-16] MEDS: NICOTINE PATCH REMOVAL TP SCH (10:13)
[2019-12-16] MEDS: PROPOFOL DRIP (ICU) 100 ML IV SCH (10:17)
[2019-12-16] MEDS ORDERED: hydrALAZINE (APESOLINE) 20 MG/ML VIAL ONE (11:07)
[2019-12-16] MEDS ORDERED: hydrALAZINE (APESOLINE) 20 MG/ML VIAL IV PRN (11:15)
[2019-12-16] MEDS ORDERED: RT-ALBUTEROL/IPRATROPIUM 3 ML (DUONEB) VIAL INH PRN (11:45)
--- NOTE | 2019-12-16 13:23 | Progress Note ---
Subjective Subjective/Events-last exam Patient extubated this AM on Bipap breathing comfortably this AM. Alert and answering questions appropriately. Would like us to call his GF and have her come see him. Denies any pain Review of Systems Pulmonary: Dyspnea, Cough Cardiovascular: No: Chest Pain, Palpitations Gastrointestinal: No: Nausea, Vomiting, Abdominal Pain, Diarrhea, Constipation Neurological: Weakness, Incoordination Focused Exam Time of Focused Exam: 02:40 Objective Exam Last Set of Vital Signs Vital Signs Date Time Temp Pulse Resp B/P (MAP) Pulse Ox O2 Delivery O2 Flow Rate FiO2 12/16/19 13:00 69 17 141/82 (101) 96 NIV Bilevel 30.00 12/16/19 12:00 36.4 12/16/19 03:47 25 Capillary Refill : Less Than 3 SecondsGreater Than 3 Seconds I&O Intake and Output 12/16/19 00:00 Intake Total 2000 ml Output Total 6175 ml Balance -4175 ml Intake Oral 0 ml IV Total 1940 ml Other 60 ml Output Urine Total 5475 ml Gastric Drainage Total 700 ml General: Alert, Cooperative, Mild Distress HEENT: Mucous Memb Moist/[place] Lungs: Clear to Auscultation, Normal Air Movement Heart: Regular Rate, No Murmurs Abdomen: Normal Bowel Sounds, Soft, No Tenderness, No Masses Extremities: Other (4+ pitting edema bilaterally) Neuro: Normal Speech, Sensation Intact, Cranial Nerves 3-12 NL Other physical findings Scrotum swollen and erythematous Results/Procedures Lab Laboratory Tests 12/15/19 17:25: Glucometer 77 12/15/19 17:36: Sodium Level 149H, Potassium Level 3.1L, Chloride Level 108H, Carbon Dioxide Level 30, Anion Gap 11, Blood Urea Nitrogen 14, Creatinine 0.79, Estimat Glomerular Filtration Rate > 60, BUN/Creatinine Ratio 18, Glucose Level 65L, Calcium Level 8.7 12/15/19 19:34: Glucometer 74 12/16/19 00:09: Glucometer 76 12/16/19 03:25: White Blood Count 7.8, Red Blood Count 4.29L, Hemoglobin 11.7L, Hematocrit 38L, Mean Corpuscular Volume 90, Mean Corpuscular Hemoglobin 27, Mean Corpuscular Hemoglobin Concent 31L, Red Cell Distribution Width 15.3H, Platelet Count 237, Mean Platelet Volume 10.1, Neutrophils (%) (Auto) 69, Lymphocytes (%) (Auto) 19, Monocytes (%) (Auto) 9, Eosinophils (%) (Auto) 3, Basophils (%) (Auto) 1, Neutrophils # (Auto) 5.4, Lymphocytes # (Auto) 1.5, Monocytes # (Auto) 0.7, Eosinophils # (Auto) 0.2, Basophils # (Auto) 0.1, Sodium Level 148H, Potassium Level 3.3L, Chloride Level 109H, Carbon Dioxide Level 25, Anion Gap 14, Blood Urea Nitrogen 16, Creatinine 0.80, Estimat Glomerular Filtration Rate > 60, BUN/Creatinine Ratio 20, Glucose Level 72, Calcium Level 8.4L, Phosphorus Level 3.3, Magnesium Level 1.9, Triglycerides Level 126 12/16/19 03:43: Blood Gas Puncture Site RIGHT RADIAL, Blood Gas Patient Temperature 36.7, Arterial Blood pH 7.47H, Arterial Blood Partial Pressure CO2 42, Arterial Blood Partial Pressure O2 69L, Arterial Blood HCO3 30H, Arterial Blood Total CO2 31.0, Arterial Blood Oxygen Saturation 93L, Arterial Blood Base Excess 5.9H, Mike Test POSITIVE, Blood Gas Ventilator Setting YES, Blood Gas Inspired Oxygen 25 12/16/19 11:26: Glucometer 96 Microbiology 12/12/19 Gram Stain - Final, Complete 12/12/19 Sputum Culture - Final, Complete Usual upper respiratory мария YEAST 12/06/19 Blood Culture - Final, Complete No growth 12/06/19 Urine Culture - Final, Complete NO GROWTH Radiology CXR 12/04: IMPRESSION: "Cardiomegaly with without pulmonary venous hypertension. This is improved compared 11/30/2019. Assessment/Plan Assessment/Plan (1) Acute respiratory failure Status: Acute Assessment & Plan: 12/15: Extubated this AM, on bipap will wean as tolerated, Dr Roy managing Qualifiers: Qualified Codes: J96.01 - Acute respiratory failure with hypoxia (2) Acute systolic CHF (congestive heart failure) Status: Acute Assessment & Plan: - Dr Burgess consulted, appreciate recommendations (3) Atrial fibrillation with RVR Status: Acute Assessment & Plan: 12/15: Dr Storm consulted and patient had ablation (4) Sepsis Status: Resolved Assessment & Plan: Tachycardia, mildly elevated initial lactic acid (resolved). Suspect secondary to cellulitis. Zosyn and vancomycin. Qualifiers: Qualified Codes: A41.9 - Sepsis, unspecified organism (5) Cellulitis, scrotum Status: Acute Assessment & Plan: Zosyn and vancomycin. 12/15: Zosyn, elevation and cold compresses to scrotum to help with swelling (6) Elevated troponin Status: Resolved Assessment & Plan: Mildly elevated, suspect secondary to tachycardia and sepsis, Cardiology consulted, appreciate recommendations. (7) T2DM (type 2 diabetes mellitus) Status: Chronic Assessment & Plan: Hold metformin, diabetic diet, sliding scale insulin. Qualifiers: (8) Congestive heart failure Assessment & Plan: EF 20%, discharged with lifevest last stay. BNP elevated, tachycardic, Cardiology consulted, appreciate recommendations. Qualifiers: Qualified Codes: I50.20 - Unspecified systolic (congestive) heart failure (9) HLD (hyperlipidemia) Status: Chronic Assessment & Plan: Resume home statin (10) Tachycardia Status: Resolved Assessment & Plan: Suspect secondary to sepsis, however, persistent after fluid resuscitation and with underlying CHF, Cardiology consulted. (11) Methamphetamine intoxication Status: Acute Assessment & Plan: 12/15: Discussed the need for cessation (12) HTN (hypertension) Status: Chronic Assessment & Plan: Hold home antihypertensive, currently normal to low BP. Qualifiers: Qualified Codes: I10 - Essential (primary) hypertension (13) DVT prophylaxis Status: Acute Assessment & Plan: On chronic apixaban, resumed. Clinical Quality Measures DVT/VTE Risk/Contraindication: Risk Factor Score Per Nursin RFS Level Per Nursing on Admit: 4+=Very High KIN LAU MD Dec 16, 2019 13:23
--- NOTE | 2019-12-16 14:42 | NUR ---
"RD FOLLOW-UP Est. kcal needs: 8326-0214 kcal | 15-18 kcal/kg Est. Pro needs: 80-133 g Pro | 0.6-1.0 g Pro/kg Note pt is currently NPO x4d, d/t intubation/sedation. Would recommend initiation of the following to prevent malnutrition: Glucerna 1.5 at goal rate of 60ml/hr. Begin at 10ml and increase by 10ml q6h as medically able and as tolerated. Monitor gastric residuals for tolerance. At goal rate provides 2160 kcal (16 kcal/kg); 119 g Pro (0.9 g Pro/kg); and 1093ml free water. Flush with 100ml H2O q4h for hydration status. With flushes, provides 1693ml free water. Will continue to follow and reassess as pt needs, intake, and status change. Melo Guerra MS, RD, LD [phone]"
[2019-12-16] MEDS: RT-ALBUTEROL/IPRATROPIUM 3 ML (DUONEB) VIAL INH SCH ×2 (14:53→19:42)
[2019-12-16] MEDS ORDERED: RT-ALBUTEROL INHALER HFA (VENTOLIN HFA) 8 GM IH SCH (15:00)
[2019-12-16] MEDS: FAMOTIDINE 20 MG (PEPCID) TABLET PO SCH (21:18)
[2019-12-17] VITALS (13 sets, daily range): BP systolic 113–163; BP diastolic 60–81
[2019-12-17] MEDS: inSUlin ASPART (NovoLOG) 1 UNIT/0.01 ML (CHARGE PER UNIT) SC SCH ×5 (01:12→21:31)
[2019-12-17] MEDS: RT-ALBUTEROL/IPRATROPIUM 3 ML (DUONEB) VIAL INH SCH ×4 (02:13→21:03)
[2019-12-17 03:33] LABS: BASOPHILS # (AUTO) 0.1 10^3/uL (0.0-0.1); BASOPHILS % (AUTO) 1 % (0-10); EOSINOPHILS # (AUTO) 0.2 10^3/uL (0.0-0.3); EOSINOPHILS % (AUTO) 3 % (0-10); HEMATOCRIT 38 % (40-54); HEMOGLOBIN 11.4 G/DL (13.3-17.7); LYMPHOCYTES # (AUTO) 1.6 X 10^3 (1.0-4.0); LYMPHOCYTES % (AUTO) 18 % (12-44); MEAN CORPUSCULAR HEMOGLOBIN 27 PG (25-34); MEAN CORPUSCULAR HGB CONC 30 G/DL (32-36); MEAN CORPUSCULAR VOLUME 90 FL (80-99); MEAN PLATELET VOLUME 10.3 FL (7.4-10.4); MONOCYTES # (AUTO) 0.8 X 10^3 (0.0-1.0); MONOCYTES % (AUTO) 9 % (0-12); NEUTROPHILS # (AUTO) 6.3 X 10^3 (1.8-7.8); NEUTROPHILS % (AUTO) 70 % (42-75); PLATELET COUNT 208 10^3/uL (130-400)
[2019-12-17 03:47] LABS: CHLORIDE 107 MMOL/L (98-107); SODIUM 147 MMOL/L (135-145)
[2019-12-17 03:49] LABS: CALCIUM 8.6 MG/DL (8.5-10.1); GLUCOSE 102 MG/DL (70-105)
[2019-12-17 03:51] LABS: CARBON DIOXIDE 23 MMOL/L (21-32)
[2019-12-17 03:53] LABS: CREATININE SERUM 0.86 MG/DL (0.60-1.30); GFR ESTIMATED > 60; PHOSPHORUS 3.4 MG/DL (2.3-4.7)
[2019-12-17 03:54] LABS: BUN/CREATININE RATIO 23
[2019-12-17] MEDS: POTASSIUM CL 10MEQ/50ML IVPB 50 ML IV SCH (05:21)
[2019-12-17] MEDS: MAGNESIUM 1 GM/100 ML IVPB 100 ML IV SCH (05:22)
[2019-12-17] MEDS: KCL 20 MEQ TAB (K-DUR) PO SCH (05:22)
--- NOTE | 2019-12-17 05:46 | Pulmonary Progress Note ---
Subjective Time Seen by a Provider: 05:41 Subjective/Events-last exam Pt appears to be doing better Sepsis Event Evaluation Height, Weight, BMI Height: 5'11.00" Weight: 358lbs. 1.0oz. 162.950252xx; 39.96 BMI Method: Focused Exam Time of Focused Exam: 02:40 Exam Exam Vital Signs Date Time Temp Pulse Resp B/P (MAP) Pulse Ox O2 Delivery O2 Flow Rate FiO2 12/17/19 05:00 77 16 126/64 (84) 93 Room Air 12/17/19 04:00 37.0 12/17/19 04:00 69 20 128/69 (88) 92 Room Air 12/17/19 04:00 92 Room Air 12/17/19 03:00 63 20 113/60 (77) 93 Room Air 12/17/19 02:30 Room Air 12/17/19 02:13 99 Nasal Cannula 2.00 12/17/19 02:00 63 18 128/71 (90) 98 Nasal Cannula 2.00 12/17/19 01:19 Nasal Cannula 2.00 12/17/19 01:00 59 16 140/73 (95) 100 Nasal Cannula 4.00 12/17/19 01:00 61 12/17/19 00:00 97 Nasal Cannula 6.00 12/17/19 00:00 61 17 134/79 (97) 99 Nasal Cannula 4.00 12/17/19 00:00 37.2 12/16/19 23:00 64 20 133/72 (92) 99 Nasal Cannula 4.00 12/16/19 22:28 132/58 12/16/19 22:00 64 18 136/75 (95) 98 Nasal Cannula 4.00 12/16/19 21:40 99 Nasal Cannula 6.00 12/16/19 21:40 Nasal Cannula 4.00 12/16/19 21:18 Nasal Cannula 6.00 12/16/19 21:00 66 13 144/83 (103) 97 NIV Bilevel 24.00 12/16/19 20:00 95 NIV Bilevel 30 12/16/19 20:00 35.9 12/16/19 20:00 62 17 142/81 (101) 95 NIV Bilevel 24.00 12/16/19 19:50 NIV Bilevel 24.00 12/16/19 19:42 60 19 97 30.00 12/16/19 19:00 62 12/16/19 19:00 61 18 153/90 (111) 97 NIV Bilevel 30.00 12/16/19 18:00 61 17 154/93 (113) 98 NIV Bilevel 30.00 12/16/19 17:00 60 17 147/86 (106) 97 NIV Bilevel 30.00 12/16/19 16:00 95 NIV Bilevel 30 12/16/19 16:00 35.2 12/16/19 16:00 62 17 146/87 (106) 97 NIV Bilevel 30.00 12/16/19 15:00 60 17 140/87 (104) 97 NIV Bilevel 30.00 12/16/19 14:53 60 18 98 30.00 12/16/19 14:00 66 17 150/82 (104) 91 NIV Bilevel 30.00 12/16/19 13:00 69 17 141/82 (101) 96 NIV Bilevel 30.00 12/16/19 12:56 70 142/103 12/16/19 12:24 74 12/16/19 12:00 95 NIV Bilevel 30 12/16/19 12:00 36.4 12/16/19 12:00 75 18 139/79 (99) 96 NIV Bilevel 30.00 12/16/19 11:00 76 16 162/107 (125) 98 NIV Bilevel 30.00 12/16/19 10:00 71 20 152/112 (125) 91 NIV Bilevel 30.00 12/16/19 09:59 74 28 98 35.00 12/16/19 09:00 69 24 147/99 (115) 96 NIV Bilevel 30.00 12/16/19 08:00 65 16 149/97 (114) NIV Bilevel 30.00 12/16/19 08:00 95 NIV Bilevel 30 12/16/19 07:00 61 17 145/92 (109) 96 NIV Bilevel 30.00 12/16/19 07:00 60 12/16/19 06:00 63 20 156/99 (118) 96 Mechanical Ventilator 40.00 I & O 12/17/19 07:00 Intake Total 1370 ml Output Total 2525 ml Balance -1155 ml Height & Weight Height: 5'11.00" Weight: 358lbs. 1.0oz. 162.470001aj; 39.96 BMI Method: General Appearance: No Apparent Distress, Chronically ill HEENT: Other (intubated) Respiratory: Other (Sonorous breath sounds diminished breath sounds in bases no wheezing appreciated no significant rhonchi) Cardiovascular: Regular Rate, Rhythm, No Gallop, No JVD, No Murmur Capillary Refill: Greater Than 3 Seconds Gastrointestinal: soft, no organomegaly, hernia (incarcerated umbilical hernia) Extremity: Other (1+ brawny pretibial edema and pedal edema several small vesicles right thigh minimal erythema linear not grouped no purulence noted.) Neurologic/Psychiatric: Other (patient sedated) Skin: Other (pt still has very severe scrotal edema, not improved at all. May even be slightly red, but no changes. Doubt there is an abscess just edema.) Results Lab Laboratory Tests 12/15/19 06:20 12/15/19 06:50 12/15/19 17:36 12/16/19 03:25 12/17/19 03:08 Assessment/Plan Assessment/Plan Acute respiratory failure -Extubated pt yesterday -Check BNP Afib s/p cardioversion 12/06 Congestive heart failure with EF of 20% Hypernatremia -LR at KVO -Monitor methamphetamine and Marijuana use -Education EP 12/11 -Presented to ICU after EP study intubated DM II VISHNU DE LOS SANTOS DO Dec 17, 2019 05:46
[2019-12-17] MEDS: ACETAMINOPHEN 500 MG TAB (TYLENOL) PO PRN ×2 (05:57→21:31)
[2019-12-17] MEDS: LACTATED RINGERS 1,000 ML IV SCH (05:57)
[2019-12-17] MEDS: PIPERACILLIN/TAZOBACTAM (BULK) 4.5 GM in NS (IVPB) 100 ML IV SCH (05:57)
--- NOTE | 2019-12-17 08:16 | Diagnostic Imaging Report ---
INDICATION: Post extubation, dyspnea. TECHNIQUE: Single view chest 3:18 AM. CORRELATION STUDY: 12/16/2019 FINDINGS: Interval extubation and removal of gastric tube. Heart size enlarged. Vasculature overall improved. Significant opacification over the right mid and lower chest likely combination of infiltrate and effusion. Adversely increased. Left lung is overall improved in aeration. IMPRESSION: 1. Interval extubation. 2. Cardiac enlargement. Severity of vascular congestion, however, is improved with vasculature near normal. 3. Increasing opacity at the right lung base likely a combination of edema and/or infiltrate along with effusion. Dictated by: Dictated on workstation # [id number]
[2019-12-17] MEDS: APIXABAN 5 MG (ELIQUIS) TABLET PO SCH ×2 (09:20→21:25)
[2019-12-17] MEDS: NICOTINE 21 MG (NICODERM) PATCH TD SCH (09:20)
[2019-12-17] MEDS: NICOTINE PATCH REMOVAL TP SCH (09:20)
[2019-12-17] MEDS: FAMOTIDINE 20 MG (PEPCID) TABLET PO SCH ×2 (09:20→21:25)
[2019-12-17] MEDS: CLOPIDOGREL 75 MG (PLAVIX) TABLET PO SCH (09:20)
--- NOTE | 2019-12-17 09:38 | NUR ---
Received report from Erika CLINICAL NUTRITIONIST. Pt transferred to room 416. Pt tolerated transfer well.
--- NOTE | 2019-12-17 09:38 | NUR ---
This nurse called SBAR report to [facility]. Patient taken to 4th floor via bed by Anjana ALICEA.
--- NOTE | 2019-12-17 10:00 | NUR ---
Pt assessed by this RN. This RN agrees with previous nurses assessment. Pt repositioned for comfort.
[2019-12-17] MEDS ORDERED: FUROSEMIDE 40 MG/4 ML INJ (LASIX) IVP NR (10:45)
--- NOTE | 2019-12-17 12:07 | NUR ---
CM/SS follow up. The patient had a friend visiting when this ss attempted to visit. CM/SS visited at a later time. The patient was laying in bed at second attempt and was willing to talk. He reports that he is starting to feel better; however, it seemed that the patient had some mild confusion. CM/SS spoke with the patients [employer] worker Shanda ([phone]) who stated she has been attempting to get a hold of the patient but has been unsuccessful. According to Shanda, she spoke with the patient prior to this hospitalization to discuss getting on the physical disability waiver. She stated he denied services at that time. CM/SS discussed the different options for skilled therapies with the patient (home health, inpatient rehab, [facility] stay at facility with A&B , home health + [employer] caregivers). He verbalized understanding and stated he would be willing to do any of them at this time. CM/SS will watch patients physical therapy notes to help with discharge planning. CM/SS will continue to follow.
--- NOTE | 2019-12-17 12:49 | Cardiology Progress Note ---
Subjective Date Seen by Provider: Dec 17, 2019 Time Seen by Provider: 12:46 Subjective/Events-last exam Patient was seen at bedside, still having shortness of breath, eating lunch. No new complaint Review of Systems General: No Chills, No Night Sweats, No Fatigue, No Malaise, No Appetite, No Other HEENT: No Head Aches, No Visual Changes, No Eye Pain, No Ear Pain, No Dysphasia, No Sinus Congestion, No Post Nasal Drip, No Sore Throat, No Other Pulmonary: No Dyspnea, No Cough, No Pleuritic Chest Pain, No Other Cardiovascular: No: Chest Pain, Palpitations, Orthopnea, Paroxysmal Noc. Dyspnea, Edema, Lt Headedness, Other Focused Exam Time of Focused Exam: 02:40 Objective-Cardiology Exam Last Set of Vital Signs Vital Signs 12/16/19 12/17/19 12/17/19 12/17/19 20:00 02:13 07:50 09:00 Pulse 93 Resp 28 B/P (MAP) 143/70 (94) Pulse Ox 92 O2 Delivery Room Air O2 Flow Rate 2.00 FiO2 30 Capillary Refill : Less Than 3 SecondsGreater Than 3 Seconds I&O Intake and Output 12/17/19 00:00 Intake Total 820 ml Output Total 2675 ml Balance -1855 ml Intake Oral 0 ml IV Total 770 ml Other 50 ml Output Urine Total 2575 ml Gastric Drainage Total 100 ml General: Alert, Oriented X3, Cooperative, Mild Distress HEENT: Atraumatic, PERRLA, Mucous Memb Moist/[place] Neck: Supple Lungs: Clear to Auscultation, Normal Air Movement Heart: Regular Rate, Normal S1, Normal S2, No Murmurs Abdomen: Normal Bowel Sounds, Soft, No Tenderness, No Masses Extremities: No Clubbing, No Cyanosis, Other (4+ pitting edema bilaterally) Skin: No Rashes Neuro: Normal Speech, Sensation Intact, Cranial Nerves 3-12 NL Psych/Mental Status: Other (on C Pap) Results Lab Laboratory Tests 12/17/19 03:08 A/P-Cardiology Admission Diagnosis Acute respiratory failure Atrial flutter Congestive heart failure, acute left ventricular systolic dysfunction, uri schemic cardiomyopathy Hypertension Assessment/Plan Status post acute respiratory failure, doing better at this time, on nasal cannula. Feeling better, managed by primary care team Coronary angiogram done by Dr. Storm on December 12, 2019 showing mild coronary artery disease nonobstructive disease Congestive heart failure, acute on chronic left ventricular systolic dysfunction , ejection fraction 20 percent, nonischemic cardiomyopathy, managed with Dr. Storm, continue to monitor Hypernatremia, Lasix dose was decreased. Continue to monitor Scrotal swelling and cellulitis, defer to the primary team. Treatment with IV antibiotics. Meth abuse, strongly recommended to quit. Currently sedated and intubated Atrial flutter with 2-1 AV block. Refractory to medical therapy with IV Cardizem. Patient is on Eliquis. Cardioversion is recommended. 1 percent risk of stroke was discussed. Cardioversion was performed with anesthesia support on 12/07/2019. Underwent ablation on December 12, 2019, currently in sinus rhythm Recent Acute stroke, status post thrombolytics, resolution. Will require rehabilitation. Previous admission showed Positive cardiac enzymes. Coronary angiography is contraindicated in an acute stroke for at least a month from the index event which was on 11/10/2019. I briefly discussed with the patient about coronary angiography before discharge. Smoking, smoking cessation was strongly recommended. DM, defer to the primary team. HTN, continue to monitor blood pressure Hyperlipidemia, high-dose Lipitor therapy. RBBB, left anterior fascicular block. Continue to monitor Clinical Quality Measures DVT/VTE Risk/Contraindication: Risk Factor Score Per Nursin RFS Level Per Nursing on Admit: 4+=Very High NIKA SOSA MD Dec 17, 2019 12:49 pm
--- NOTE | 2019-12-17 13:29 | NUR ---
"RD ASSESSMENT PMHx: HTN; HLD; DM; gout PT INTERACTION: Pt was awake and pleasant during nutrition follow-up. Pt states current appetite is good. Note pt had been NPO x4d d/t intubation. Note since extubation, PO intake of 75% x1meal, per chart review. Pt states no issues with nausea, vomiting, constipation, or diarrhea since last assessment. Note no BM has been recorded and pt not currently on bowel regimen per chart review. ABNORMAL NUTRITION-RELATED LAB VALUES LOW: HIGH: Na 147; BUN 20 Est. kcal needs: 6122-6380 kcal | 15-18 kcal/kg Est. Pro needs: 106-133 g Pro | 0.8-1.0 g Pro/kg PES STATEMENT: Given current PO intake, no nutrition diagnosis at this time (NO-1.1) INTERVENTION: Continue with current diet order of Heart Healthy diet. Pt may benefit from consistent CHO restriction if blood glucose levels become elevated. Pt may benefit from nutrition supplementation if PO intake declines. Will continue to follow and reassess as pt needs, intake, and status change. MONITOR/EVALUATE: PO Intake; Plan of Care; Hydration Status; Weight Status; Lab Values Melo Guerra, MS, RD, LD"
--- NOTE | 2019-12-17 20:19 | Progress Note ---
Subjective Subjective/Events-last exam Patient states that he is feeling better this AM. Still having alot of swelling and scrotal swelling minimally improved. Tolerating PO diet. Review of Systems Pulmonary: Dyspnea, Cough Cardiovascular: Edema; No: Chest Pain Gastrointestinal: No: Nausea, Vomiting, Abdominal Pain Genitourinary: Other (Scrotal swelling) Musculoskeletal: leg pain Neurological: Weakness, Incoordination Focused Exam Time of Focused Exam: 02:40 Objective Exam Last Set of Vital Signs Vital Signs Date Time Temp Pulse Resp B/P (MAP) Pulse Ox O2 Delivery O2 Flow Rate FiO2 12/17/19 19:00 100 12/17/19 15:53 37.6 20 163/77 (105) 92 Room Air 12/17/19 02:13 2.00 12/16/19 20:00 30 Capillary Refill : Less Than 3 SecondsGreater Than 3 Seconds I&O Intake and Output 12/17/19 00:00 Intake Total 820 ml Output Total 2675 ml Balance -1855 ml Intake Oral 0 ml IV Total 770 ml Other 50 ml Output Urine Total 2575 ml Gastric Drainage Total 100 ml General: Alert, Oriented X3, Cooperative, No Acute Distress Lungs: Clear to Auscultation, Normal Air Movement Heart: Regular Rate, No Murmurs Abdomen: Soft Extremities: Other (4+ pitting edema into abdomen) Neuro: Normal Speech, Sensation Intact, Cranial Nerves 3-12 NL Results/Procedures Lab Laboratory Tests 12/16/19 20:56: Glucometer 90 12/17/19 01:15: Glucometer 107 12/17/19 03:08: White Blood Count 9.0, Red Blood Count 4.22L, Hemoglobin 11.4L, Hematocrit 38L, Mean Corpuscular Volume 90, Mean Corpuscular Hemoglobin 27, Mean Corpuscular Hemoglobin Concent 30L, Red Cell Distribution Width 15.0H, Platelet Count 208, Mean Platelet Volume 10.3, Neutrophils (%) (Auto) 70, Lymphocytes (%) (Auto) 18, Monocytes (%) (Auto) 9, Eosinophils (%) (Auto) 3, Basophils (%) (Auto) 1, Neutrophils # (Auto) 6.3, Lymphocytes # (Auto) 1.6, Monocytes # (Auto) 0.8, Eosinophils # (Auto) 0.2, Basophils # (Auto) 0.1, Sodium Level 147H, Potassium Level 4.0, Chloride Level 107, Carbon Dioxide Level 23, Anion Gap 17H, Blood Urea Nitrogen 20H, Creatinine 0.86, Estimat Glomerular Filtration Rate > 60, BUN/Creatinine Ratio 23, Glucose Level 102, Calcium Level 8.6, Phosphorus Level 3.4, Magnesium Level 2.0, B-Type Natriuretic Peptide 842.5H 12/17/19 11:26: Glucometer 205H 12/17/19 15:25: Glucometer 221H Microbiology 12/12/19 Gram Stain - Final, Complete 12/12/19 Sputum Culture - Final, Complete Usual upper respiratory мария YEAST 12/06/19 Blood Culture - Final, Complete No growth 12/06/19 Urine Culture - Final, Complete NO GROWTH Radiology CXR 12/04: IMPRESSION: "Cardiomegaly with without pulmonary venous hypertension. This is improved compared 11/30/2019. Assessment/Plan Assessment/Plan (1) Acute respiratory failure Status: Acute Assessment & Plan: 12/15: Extubated this AM, on bipap will wean as tolerated, Dr Roy managing 12/16: Transitioned to NC, breathing comfortably, continue to titrate as tolerated Qualifiers: Qualified Codes: J96.01 - Acute respiratory failure with hypoxia (2) Hypernatremia Status: Acute Assessment & Plan: 12/16: Lasix dose decreased, LR TKO, continue to monitor (3) Acute systolic CHF (congestive heart failure) Status: Acute Assessment & Plan: - Dr Burgess consulted, appreciate recommendations (4) Atrial fibrillation with RVR Status: Acute Assessment & Plan: 12/15: Dr Storm consulted and patient had ablation (5) Sepsis Status: Resolved Assessment & Plan: Tachycardia, mildly elevated initial lactic acid (resolved). Suspect secondary to cellulitis. Zosyn and vancomycin. Qualifiers: Qualified Codes: A41.9 - Sepsis, unspecified organism (6) Cellulitis, scrotum Status: Acute Assessment & Plan: Zosyn and vancomycin. 12/15: Zosyn, elevation and cold compresses to scrotum to help with swelling (7) Elevated troponin Status: Resolved Assessment & Plan: Mildly elevated, suspect secondary to tachycardia and sepsis, Cardiology consulted, appreciate recommendations. (8) T2DM (type 2 diabetes mellitus) Status: Chronic Assessment & Plan: Hold metformin, diabetic diet, sliding scale insulin. Qualifiers: (9) Congestive heart failure Assessment & Plan: EF 20%, discharged with lifevest last stay. BNP elevated, tachycardic, Cardiology consulted, appreciate recommendations. Qualifiers: Qualified Codes: I50.20 - Unspecified systolic (congestive) heart failure (10) HLD (hyperlipidemia) Status: Chronic Assessment & Plan: Resume home statin (11) Tachycardia Status: Resolved Assessment & Plan: Suspect secondary to sepsis, however, persistent after fluid resuscitation and with underlying CHF, Cardiology consulted. (12) Methamphetamine intoxication Status: Acute Assessment & Plan: 12/15: Discussed the need for cessation (13) HTN (hypertension) Status: Chronic Assessment & Plan: Hold home antihypertensive, currently normal to low BP. Qualifiers: Qualified Codes: I10 - Essential (primary) hypertension (14) DVT prophylaxis Status: Acute Assessment & Plan: On chronic apixaban, resumed. Clinical Quality Measures DVT/VTE Risk/Contraindication: Risk Factor Score Per Nursin RFS Level Per Nursing on Admit: 4+=Very High KIN LAU MD Dec 17, 2019 20:19
[2019-12-18] VITALS: BP 146/79
[2019-12-18] MEDS: HYDROcodone/APAP 5 MG/325 MG (LORTAB) TAB PO PRN ×3 (01:28→21:01)
[2019-12-18] MEDS: RT-ALBUTEROL/IPRATROPIUM 3 ML (DUONEB) VIAL INH SCH ×4 (02:26→21:50)
[2019-12-18 04:00] VITALS: BP 141/79
[2019-12-18] MEDS: inSUlin ASPART (NovoLOG) 1 UNIT/0.01 ML (CHARGE PER UNIT) SC SCH ×4 (05:57→20:27)
[2019-12-18] MEDS: LACTATED RINGERS 1,000 ML IV SCH (05:57)
[2019-12-18 06:28] LABS: BASOPHILS # (AUTO) 0.1 10^3/uL (0.0-0.1); BASOPHILS % (AUTO) 1 % (0-10); EOSINOPHILS # (AUTO) 0.2 10^3/uL (0.0-0.3); EOSINOPHILS % (AUTO) 2 % (0-10); HEMATOCRIT 37 % (40-54); HEMOGLOBIN 11.3 G/DL (13.3-17.7); LYMPHOCYTES # (AUTO) 1.5 X 10^3 (1.0-4.0); LYMPHOCYTES % (AUTO) 18 % (12-44); MEAN CORPUSCULAR HEMOGLOBIN 27 PG (25-34); MEAN CORPUSCULAR HGB CONC 30 G/DL (32-36); MEAN CORPUSCULAR VOLUME 89 FL (80-99); MEAN PLATELET VOLUME 10.3 FL (7.4-10.4); MONOCYTES # (AUTO) 0.8 X 10^3 (0.0-1.0); MONOCYTES % (AUTO) 9 % (0-12); NEUTROPHILS % (AUTO) 70 % (42-75); PLATELET COUNT 215 10^3/uL (130-400); RED CELL DISTRIBUTION WIDTH 15.1 % (10.0-14.5); WHITE BLOOD COUNT 8.5 10^3/uL (4.3-11.0)
[2019-12-18 06:32] LABS: CHLORIDE 106 MMOL/L (98-107); SODIUM 146 MMOL/L (135-145)
[2019-12-18 06:33] LABS: CALCIUM 8.4 MG/DL (8.5-10.1)
[2019-12-18 06:34] LABS: GLUCOSE 108 MG/DL (70-105)
[2019-12-18 06:35] LABS: CARBON DIOXIDE 28 MMOL/L (21-32)
[2019-12-18 06:37] LABS: PHOSPHORUS 2.6 MG/DL (2.3-4.7)
[2019-12-18 06:38] LABS: CREATININE SERUM 0.82 MG/DL (0.60-1.30); GFR ESTIMATED > 60
[2019-12-18 06:39] LABS: BUN/CREATININE RATIO 21
[2019-12-18] MEDS ORDERED: KCL 20 MEQ TAB (K-DUR) PO NR ×3 (07:00→11:00)
[2019-12-18] MEDS: KCL 20 MEQ TAB (K-DUR) PO SCH (07:02)
[2019-12-18 07:28] VITALS: BP 144/75
--- NOTE | 2019-12-18 07:40 | Pulmonary Progress Note ---
Subjective Time Seen by a Provider: 07:37 Subjective/Events-last exam Pt appears to be doing better. Sepsis Event Evaluation Height, Weight, BMI Height: 5'11.00" Weight: 358lbs. 1.0oz. 162.019138vk; 39.96 BMI Method: Focused Exam Time of Focused Exam: 02:40 Exam Exam Vital Signs Date Time Temp Pulse Resp B/P (MAP) Pulse Ox O2 Delivery O2 Flow Rate FiO2 12/18/19 07:28 36.0 89 20 144/75 (98) 91 Nasal Cannula 2.00 12/18/19 04:00 36.5 89 20 141/79 (99) 89 Room Air 12/18/19 02:27 91 Room Air 12/18/19 01:00 92 12/18/19 00:00 36.9 95 20 146/79 (101) 90 Room Air 12/17/19 21:25 Room Air 12/17/19 21:03 92 Room Air 12/17/19 19:24 37.7 106 18 143/75 (97) 89 Room Air 12/17/19 19:00 103 12/17/19 15:53 37.6 100 20 163/77 (105) 92 Room Air 12/17/19 14:55 92 Room Air 12/17/19 13:02 111 12/17/19 12:00 37.1 91 20 163/67 (99) 92 Room Air 12/17/19 09:00 93 28 143/70 (94) Room Air 12/17/19 08:00 37.4 12/17/19 08:00 93 13 141/74 (96) Room Air 12/17/19 07:50 92 Room Air I & O 12/18/19 07:00 Intake Total 1680 ml Output Total 1375 ml Balance 305 ml Height & Weight Height: 5'11.00" Weight: 358lbs. 1.0oz. 162.869506wy; 39.96 BMI Method: General Appearance: No Apparent Distress, Chronically ill HEENT: Other (intubated) Respiratory: Other (Sonorous breath sounds diminished breath sounds in bases no wheezing appreciated no significant rhonchi) Cardiovascular: Regular Rate, Rhythm, No Gallop, No JVD, No Murmur Capillary Refill: Less Than 3 Seconds Gastrointestinal: soft, no organomegaly, hernia (incarcerated umbilical hernia) Extremity: Other (1+ brawny pretibial edema and pedal edema several small vesicles right thigh minimal erythema linear not grouped no purulence noted.) Neurologic/Psychiatric: Other (patient sedated) Skin: Other (pt still has very severe scrotal edema, not improved at all. May even be slightly red, but no changes. Doubt there is an abscess just edema.) Results Lab Laboratory Tests 12/17/19 03:08 12/18/19 05:45 Assessment/Plan Assessment/Plan Acute respiratory failure -s/p ventilator Afib s/p cardioversion 12/06 Congestive heart failure with EF of 20% Hypernatremia -Monitor methamphetamine and Marijuana use -Education EP 12/11 -Presented to ICU after EP study intubated DM II VISHNU DE LOS SANTOS DO Dec 18, 2019 07:40
--- NOTE | 2019-12-18 08:44 | Cardiology Progress Note ---
Subjective Date Seen by Provider: Dec 18, 2019 Time Seen by Provider: 08:41 Subjective/Events-last exam Patient sitting up at bedside with PT. Complaining of some muscle weakness. Denies any chest pain, dyspnea or dizziness. Review of Systems General: No Chills, No Night Sweats, No Fatigue, No Malaise, No Appetite, No Other HEENT: No Head Aches, No Visual Changes, No Eye Pain, No Ear Pain, No Dysphasia, No Sinus Congestion, No Post Nasal Drip, No Sore Throat, No Other Pulmonary: No Dyspnea, No Cough, No Pleuritic Chest Pain, No Other Cardiovascular: No: Chest Pain, Palpitations, Orthopnea, Paroxysmal Noc. Dyspnea, Edema, Lt Headedness, Other Focused Exam Time of Focused Exam: 02:40 Objective-Cardiology Exam Last Set of Vital Signs Vital Signs 12/16/19 12/18/19 12/18/19 20:00 07:28 08:00 Temp 36.0 Pulse 89 Resp 20 B/P (MAP) 144/75 (98) Pulse Ox 91 O2 Delivery Room Air O2 Flow Rate 2.00 FiO2 30 Capillary Refill : Less Than 3 SecondsLess Than 3 Seconds I&O Intake and Output 12/18/19 00:00 Intake Total 2230 ml Output Total 1405 ml Balance 825 ml Intake Oral 2230 ml Output Urine Total 1405 ml General: Alert, Oriented X3, Cooperative, No Acute Distress HEENT: Atraumatic, PERRLA, Mucous Memb Moist/[place] Neck: Supple Lungs: Clear to Auscultation, Normal Air Movement Heart: Regular Rate, Normal S1, Normal S2, No Murmurs Abdomen: Soft Extremities: Other (2+ pitting edema ) Skin: No Rashes Neuro: Normal Speech, Sensation Intact, Cranial Nerves 3-12 NL Results Lab Laboratory Tests 12/18/19 05:45 A/P-Cardiology Admission Diagnosis Acute respiratory failure Atrial flutter Congestive heart failure, acute left ventricular systolic dysfunction, nonischemic cardiomyopathy Hypertension Assessment/Plan Status post acute respiratory failure, doing better at this time, on nasal cannula. Feeling better, managed by primary care team Coronary angiogram done by Dr. Storm on December 12, 2019 showing mild coronary demetra ry disease nonobstructive disease Congestive heart failure, acute on chronic left ventricular systolic dysfunction, ejection fraction 20 percent, nonischemic cardiomyopathy, managed with Dr. Storm, starting Coreg 3.125 and losartan 25 and monitoring tolerance and response Hypernatremia, Lasix currently on hold. Continue to monitor Hypokalemia- replace and continue to monitor. Scrotal swelling and cellulitis, defer to the primary team. Treatment with IV antibiotics. Meth abuse, strongly recommended to quit. Atrial flutter with 2-1 AV block. Refractory to medical therapy with IV Cardizem. Patient is on Eliquis. Cardioversion was performed with anesthesia support on 12/07/2019. Underwent ablation on December 12, 2019, currently in sinus rhythm Recent Acute stroke, status post thrombolytics, resolution. Will require rehabilitation. Previous admission showed Positive cardiac enzymes. Coronary angiography is contraindicated in an acute stroke for at least a month from the index event which was on 11/10/2019. Underwent cardiac catheterization on 12/12/2019 as discussed above. Tobaccoism, smoking cessation was strongly recommended. DM, defer to the primary team. HTN, continue to monitor blood pressure Hyperlipidemia, high-dose Lipitor therapy. RBBB, left anterior fascicular block. Continue to monitor Patient was seen and evaluated with Gabrielle, examination performed, management plan was discussed, agree with the current scribed note, I made few changes to the note using Italic font Patient is sitting comfortably in a chair, received some physical therapy Tolerating current medication well and blood pressure is better, we will start low-dose beta blockers and ARB Clinical Quality Measures DVT/VTE Risk/Contraindication: Risk Factor Score Per Nursin RFS Level Per Nursing on Admit: 4+=Very High GABRIELLE WEEMS Dec 18, 2019 08:44 NIKA SOSA MD Dec 18, 2019 11:36
--- NOTE | 2019-12-18 08:57 | Physical Therapy Evaluation ---
PT Evaluation-General Medical Diagnosis Admission Date Dec 06, 2019 at 02:45 Medical Diagnosis: ARF Onset Date: Dec 06, 2019 Therapy Diagnosis Therapy Diagnosis: impaired mobility, strength, endurance Height/Weight Height (Feet): 5 Height (Inches): 11.00 Weight (Pounds): 358 Weight (Ounces): 1.0 Precautions Precautions/Isolations: Aspiration, Fall Prevention, Standard Precautions Weight Bear Status Right Lower Extremity: Right Weight Bearing/Tolerated Left Lower Extremity: Left Weight Bearing/Tolerated Referral Physician: Jacqui Jackson MD Reason for Referral: Evaluation/Treatment Medical History Pertinent Medical History: DM, HTN, Smoking Additional Medical History CVA CHF HTN DMII Reviewed History: Yes Social History Home: Single Level Current Living Status: Spouse Entry Into Home: Ramp Prior Prior Level of Function SCALE: Activities may be completed with or without assistive devices. 5-Qpguwojtfb-hezdfdo completes the activity by him/herself with no assistance from a helper. 5-Set-up or Clean-up Assistance-helper sets up or cleans up; patient completes activity. [place] assists only prior to or following the activity. 4-Supervision or Touching Assistance-helper provides verbal cues and/or touching/steadying and/or contact guard assistance as patient completes activity. Assistance may be provided throughout the activity or intermittently. 3-Partial/Moderate Assistance-helper does LESS THAN HALF the effort. [place] lifts, holds or supports trunk or limbs, but provides less than half the effort. 2-Substantial/Maximal Assistance-helper does MORE THAN HALF the effort. [place] lifts or holds trunk or limbs and provides more than half the effort. 2-Opdneitak-qnefym does ALL the effort. Patient does none of the effort to complete the activity. Or, the assistance of 2 or more helpers is required for the patient to complete the activity. If activity was not attempted, code reason: 7-Patient Refused. 9-Not Applicable-not attempted and the patient did not perform the activity before the current illness, exacerbation or injury. 10-Not Attempted due to Environmental Limitations-(lack of equipment, weather restraints, etc.). 88-Not Attempted due to Medical Conditions or Safety Concerns. Bed Mobility: 6 Transfers (B,C,W/C): 6 Gait: 6 Indoor Mobility (Ambulation): Independent PT Evaluation-Current Subjective Patient in bed pre tx, agrees to PT, has 5/10 pain in his groin area. Pt/Family Goals "to be able to walk" Objective Patient Orientation: Person, Confused, Place, Situation ROM/Strength ROM Lower Extremities limited due to BLE swelling Strength Lower Extremities 3+/5 gross BLE Sensory Hearing: Functional Sensation Right Lower Extremit: Intact Sensation Left Lower Extremity: Intact Transfers Roll Left to Right (QC): 1 Lying to Sitting/Side of Bed(Q: 1 Sit to Stand (QC): 3 Chair/Gly-mu-Artcu Xfer(QC): 3 Max assist of 2 for supine to sit, min assist for sit to stand, patient was able to take a few steps to a recliner but it took about 10 min, he was only able to step less than an inch each time. Treatment educated patient on ankle pumps to try to assist with swelling and for DVT prevention Assessment/Needs Patient has impaired mobility, strength, endurance. He has severe BLE swelling and scrotal swelling. Patient in recliner post tx with legs elevated and on pillow, maura sling under patient in case nursing needs that to get him back to bed. Rehab Potential: Guarded PT Residential Goals Noc Engineer Goals PT Residential Goals Time Frame: Dec 25, 2019 Roll Left & Right (QC): 3 Sit to Lying (QC): 3 Lying-Sitting on Side/Bed(QC): 3 Sit to Stand (QC): 4 Chair/Uat-cd-Jlhud Xfer(QC): 4 Walk 10 feet (QC): 4 PT Plan Problem List Problem List: Activity Tolerance, Functional Strength, Safety, Balance, Gait, Transfer, Bed Mobility, ROM Treatment/Plan Treatment Plan: Continue Plan of Care Treatment Plan: Bed Mobility, Education, Functional Activity Jay, Functional Strength, Gait, Safety, Therapeutic Exercise, Transfers Treatment Duration: Dec 25, 2019 Frequency: 6 times per week Estimated Hrs Per Day: .25 hour per day Patient and/or Family Agrees t: Yes Safety Risks/Education Patient Education: Gait Training, Transfer Techniques, Correct Positioning, Safety Issues Teaching Recipient: Patient Teaching Methods: Demonstration, Discussion Response to Teaching: Reinforcement Needed Discharge Recommendations Plan Patient will perform bed mobility and transfer training, balance and endurance training, functional strengthening, gait training, and education, to improve functional mobility and independence at home. Therapy Discharge Recommendati: Other, See Comments ([place]), Home & Family Time/GCodes Time In: 0825 Time Out: 0850 Total Billed Treatment Time: 25 Total Billed Treatment 1 visit MAXM 10' FA 15' FAUSTINO YBARRA PT Dec 18, 2019 08:57
[2019-12-18] MEDS: CLOPIDOGREL 75 MG (PLAVIX) TABLET PO SCH (09:04)
[2019-12-18] MEDS: APIXABAN 5 MG (ELIQUIS) TABLET PO SCH (09:04)
[2019-12-18] MEDS: NICOTINE PATCH REMOVAL TP SCH (09:04)
[2019-12-18] MEDS: NICOTINE 21 MG (NICODERM) PATCH TD SCH (09:04)
[2019-12-18] MEDS: FAMOTIDINE 20 MG (PEPCID) TABLET PO SCH ×2 (09:04→21:01)
[2019-12-18 11:37] VITALS: BP 138/70
[2019-12-18] MEDS: LOSARTAN 25 MG (COZAAR) TAB PO SCH (12:50)
--- NOTE | 2019-12-18 13:00 | NUR ---
bright red blood noted in [facility]. Dr Jackson notifed. instruced this RN to consult Gume for further instructions. gume notifed of consult by phone stated he would come see patient
--- NOTE | 2019-12-18 14:07 | NUR ---
CM/SS follow up. The patient reports he "is not doing very well today". The patient appeared to be concerned about his urinary catheter having blood present. He asked this ss to inform the primary care nurse. CM/SS found the aide who reports that the primary care nurse is aware. The patient states he was able to participate in physical therapy today but had trouble due to pain in his legs. CM/SS discussed that inpatient rehab has been requested to assess patient. If he does not meet criteria CM/SS and patient will revisit different options discussed yesterday. The patient reports that he has applied for social security disability a few months ago but was denied. CM/SS contacted Brittney to see if she could help the patient set up an appointment. No further needs at this time. Addendum: 12/18/19 at 1459 by KAVITHA ODELL CM/SS spoke with Shanda through [employer]. An update was given. She looked at benefits for this sw and stated that rehab was listed on there. Will continue to follow.
[2019-12-18 15:35] VITALS: BP_SYST 119; BP_SYST 142; BP_DIAS 68; BP_DIAS 84
--- NOTE | 2019-12-18 17:49 | Progress Note ---
Subjective Subjective/Events-last exam Patient states that he is doing some better this AM. Worked with PT today. Nurse called with patient having new hematuria. Review of Systems Pulmonary: Dyspnea; No Cough Cardiovascular: Edema; No: Chest Pain, Palpitations Gastrointestinal: Constipation; No: Nausea, Vomiting Genitourinary: Hematuria Musculoskeletal: back pain, leg pain Neurological: Weakness, Incoordination Focused Exam Time of Focused Exam: 02:40 Objective Exam Last Set of Vital Signs Vital Signs Date Time Temp Pulse Resp B/P (MAP) Pulse Ox O2 Delivery O2 Flow Rate FiO2 12/18/19 15:35 37.7 92 20 142/84 (103) 97 Room Air 12/18/19 15:32 1.50 12/16/19 20:00 30 Capillary Refill : Less Than 3 SecondsLess Than 3 Seconds I&O Intake and Output 12/18/19 00:00 Intake Total 2230 ml Output Total 1405 ml Balance 825 ml Intake Oral 2230 ml Output Urine Total 1405 ml General: Alert, Oriented X3, Cooperative, No Acute Distress Lungs: Clear to Auscultation, Normal Air Movement Heart: Regular Rate, No Murmurs Abdomen: Normal Bowel Sounds, Soft, No Tenderness, No Masses Extremities: Other (3+ pitting edema LE bilaterally, + severe scrotal swelling) Neuro: Normal Speech, Sensation Intact, Cranial Nerves 3-12 NL Results/Procedures Lab Laboratory Tests 12/17/19 20:46: Glucometer 193H 12/18/19 03:19: Potassium Level 3.7 12/18/19 05:30: Glucometer 113H 12/18/19 05:45: Potassium Level 3.0L, White Blood Count 8.5, Red Blood Count 4.17L, Hemoglobin 11.3L, Hematocrit 37L, Mean Corpuscular Volume 89, Mean Corpuscular Hemoglobin 27, Mean Corpuscular Hemoglobin Concent 30L, Red Cell Distribution Width 15.1H, Platelet Count 215, Mean Platelet Volume 10.3, Neutrophils (%) (Auto) 70, Lymphocytes (%) (Auto) 18, Monocytes (%) (Auto) 9, Eosinophils (%) (Auto) 2, Basophils (%) (Auto) 1, Neutrophils # (Auto) 6.0, Lymphocytes # (Auto) 1.5, Monocytes # (Auto) 0.8, Eosinophils # (Auto) 0.2, Basophils # (Auto) 0.1, Sodium Level 146H, Chloride Level 106, Carbon Dioxide Level 28, Anion Gap 12, Blood Urea Nitrogen 17, Creatinine 0.82, Estimat Glomerular Filtration Rate > 60, BUN/Creatinine Ratio 21, Glucose Level 108H, Calcium Level 8.4L, Phosphorus Level 2.6, Magnesium Level 2.0 12/18/19 10:25: Glucometer 122H 12/18/19 15:53: Glucometer 214H Microbiology 12/12/19 Gram Stain - Final, Complete 12/12/19 Sputum Culture - Final, Complete Usual upper respiratory мария YEAST 12/06/19 Blood Culture - Final, Complete No growth 12/06/19 Urine Culture - Final, Complete NO GROWTH Radiology CXR 12/04: IMPRESSION: "Cardiomegaly with without pulmonary venous hypertension. This is improved compared 11/30/2019. Assessment/Plan Assessment/Plan (1) Acute respiratory failure Status: Acute Assessment & Plan: 12/15: Extubated this AM, on bipap will wean as tolerated, Dr Roy managing 12/16: Transitioned to NC, breathing comfortably, continue to titrate as tolerated Qualifiers: Qualified Codes: J96.01 - Acute respiratory failure with hypoxia (2) Hypernatremia Status: Acute Assessment & Plan: 12/16: Lasix dose decreased, LR TKO, continue to monitor (3) Acute systolic CHF (congestive heart failure) Status: Acute Assessment & Plan: - Dr Burgess consulted, appreciate recommendations (4) Atrial fibrillation with RVR Status: Acute Assessment & Plan: 12/15: Dr Storm consulted and patient had ablation (5) Sepsis Status: Resolved Assessment & Plan: Tachycardia, mildly elevated initial lactic acid (resolved). Suspect secondary to cellulitis. Zosyn and vancomycin. Qualifiers: Qualified Codes: A41.9 - Sepsis, unspecified organism (6) Cellulitis, scrotum Status: Acute Assessment & Plan: Zosyn and vancomycin. 12/15: Zosyn, elevation and cold compresses to scrotum to help with swelling (7) Elevated troponin Status: Resolved Assessment & Plan: Mildly elevated, suspect secondary to tachycardia and sepsis, Cardiology consulted, appreciate recommendations. (8) T2DM (type 2 diabetes mellitus) Status: Chronic Assessment & Plan: Hold metformin, diabetic diet, sliding scale insulin. Qualifiers: (9) Congestive heart failure Assessment & Plan: EF 20%, discharged with lifevest last stay. BNP elevated, tachycardic, Cardiology consulted, appreciate recommendations. Qualifiers: Qualified Codes: I50.20 - Unspecified systolic (congestive) heart failure (10) HLD (hyperlipidemia) Status: Chronic Assessment & Plan: Resume home statin (11) Tachycardia Status: Resolved Assessment & Plan: Suspect secondary to sepsis, however, persistent after fluid resuscitation and with underlying CHF, Cardiology consulted. (12) Methamphetamine intoxication Status: Acute Assessment & Plan: 12/15: Discussed the need for cessation (13) HTN (hypertension) Status: Chronic Assessment & Plan: Hold home antihypertensive, currently normal to low BP. Qualifiers: Qualified Codes: I10 - Essential (primary) hypertension (14) Constipation Status: Acute Assessment & Plan: 12/17: Start Miralax TID until patient has BM Qualifiers: Qualified Codes: K59.00 - Constipation, unspecified (15) Hematuria Status: Acute Assessment & Plan: 12/17: Hold eliquis and consult Urology Qualifiers: Qualified Codes: R31.0 - Gross hematuria (16) DVT prophylaxis Status: Acute Assessment & Plan: On chronic apixaban, resumed. Clinical Quality Measures DVT/VTE Risk/Contraindication: Risk Factor Score Per Nursin RFS Level Per Nursing on Admit: 4+=Very High KIN LAU MD Dec 18, 2019 17:49
[2019-12-18] MEDS: polyethylene glycoL POWDER 17 GM (MIRALAX) PACK PO SCH ×2 (18:10→20:24)
--- NOTE | 2019-12-18 19:50 | NUR ---
ivania on hold per
[2019-12-18 20:01] VITALS: BP 122/77
[2019-12-18] MEDS: CARVEDILOL 3.125 MG (COREG) TABLET PO SCH (21:01)
[2019-12-19] VITALS (7 sets, daily range): BP systolic 129–168; BP diastolic 81–88
[2019-12-19] MEDS: RT-ALBUTEROL/IPRATROPIUM 3 ML (DUONEB) VIAL INH SCH ×4 (02:27→21:23)
[2019-12-19 05:52] LABS: BASOPHILS # (AUTO) 0.1 10^3/uL (0.0-0.1); BASOPHILS % (AUTO) 1 % (0-10); EOSINOPHILS # (AUTO) 0.3 10^3/uL (0.0-0.3); EOSINOPHILS % (AUTO) 4 % (0-10); HEMATOCRIT 37 % (40-54); HEMOGLOBIN 11.2 G/DL (13.3-17.7); LYMPHOCYTES # (AUTO) 1.5 X 10^3 (1.0-4.0); LYMPHOCYTES % (AUTO) 17 % (12-44); MEAN CORPUSCULAR HEMOGLOBIN 27 PG (25-34); MEAN CORPUSCULAR HGB CONC 30 G/DL (32-36); MEAN CORPUSCULAR VOLUME 90 FL (80-99); MEAN PLATELET VOLUME 10.2 FL (7.4-10.4); MONOCYTES # (AUTO) 0.7 X 10^3 (0.0-1.0); MONOCYTES % (AUTO) 8 % (0-12); NEUTROPHILS # (AUTO) 5.9 X 10^3 (1.8-7.8); NEUTROPHILS % (AUTO) 70 % (42-75); PLATELET COUNT 228 10^3/uL (130-400); RED CELL DISTRIBUTION WIDTH 15.3 % (10.0-14.5); WHITE BLOOD COUNT 8.5 10^3/uL (4.3-11.0)
[2019-12-19] MEDS: KCL 20 MEQ TAB (K-DUR) PO SCH (06:00)
[2019-12-19] MEDS: inSUlin ASPART (NovoLOG) 1 UNIT/0.01 ML (CHARGE PER UNIT) SC SCH ×4 (06:00→21:32)
[2019-12-19 06:12] LABS: BUN/CREATININE RATIO 16; CALCIUM 8.5 MG/DL (8.5-10.1); CARBON DIOXIDE 27 MMOL/L (21-32); CHLORIDE 108 MMOL/L (98-107); CREATININE SERUM 0.92 MG/DL (0.60-1.30); GFR ESTIMATED > 60; GLUCOSE 84 MG/DL (70-105); MAGNESIUM 1.9 MG/DL (1.6-2.4); PHOSPHORUS 2.1 MG/DL (2.3-4.7); POTASSIUM 3.6 MMOL/L (3.6-5.0); SODIUM 144 MMOL/L (135-145)
[2019-12-19] MEDS: ACETAMINOPHEN 500 MG TAB (TYLENOL) PO PRN (06:25)
[2019-12-19] MEDS ORDERED: KCL 20 MEQ TAB (K-DUR) PO ONE (06:30)
--- NOTE | 2019-12-19 07:18 | Pulmonary Progress Note ---
Subjective Time Seen by a Provider: 07:16 Subjective/Events-last exam Pt appears to be doing better. Sepsis Event Evaluation Height, Weight, BMI Height: 5'11.00" Weight: 358lbs. 1.0oz. 162.450316jy; 39.96 BMI Method: Focused Exam Time of Focused Exam: 02:40 Exam Exam Vital Signs Date Time Temp Pulse Resp B/P (MAP) Pulse Ox O2 Delivery O2 Flow Rate FiO2 12/19/19 07:08 94 Nasal Cannula 3.00 12/19/19 04:00 37.7 89 22 151/82 (105) 95 Nasal Cannula 3.00 12/19/19 02:28 95 Nasal Cannula 3.00 12/19/19 01:00 88 12/19/19 00:31 37.5 87 20 143/81 (101) 91 Nasal Cannula 3.00 12/18/19 21:50 95 Nasal Cannula 3.00 12/18/19 20:01 38.1 91 20 122/77 (92) 95 Nasal Cannula 3.00 12/18/19 20:00 Nasal Cannula 3.00 12/18/19 19:00 94 12/18/19 15:35 37.7 92 20 142/84 (103) 97 Room Air 12/18/19 15:32 88 Nasal Cannula 1.50 12/18/19 12:42 96 12/18/19 11:37 36.2 98 18 138/70 (92) 94 Nasal Cannula 2.00 12/18/19 11:35 94 Nasal Cannula 1.50 12/18/19 08:00 Room Air 12/18/19 07:28 36.0 89 20 144/75 (98) 91 Nasal Cannula 2.00 I & O 12/19/19 07:00 Intake Total 2297 ml Output Total 1030 ml Balance 1267 ml Height & Weight Height: 5'11.00" Weight: 358lbs. 1.0oz. 162.881341am; 39.96 BMI Method: General Appearance: No Apparent Distress, Chronically ill HEENT: Other (intubated) Respiratory: Other (Sonorous breath sounds diminished breath sounds in bases no wheezing appreciated no significant rhonchi) Cardiovascular: Regular Rate, Rhythm, No Gallop, No JVD, No Murmur Capillary Refill: Less Than 3 Seconds Gastrointestinal: soft, no organomegaly, hernia (incarcerated umbilical hernia) Extremity: Other (1+ brawny pretibial edema and pedal edema several small vesicles right thigh minimal erythema linear not grouped no purulence noted.) Neurologic/Psychiatric: Other (patient sedated) Skin: Other (pt still has very severe scrotal edema, not improved at all. May even be slightly red, but no changes. Doubt there is an abscess just edema.) Results Lab Laboratory Tests 12/18/19 03:19 12/18/19 05:45 12/19/19 05:15 Assessment/Plan Assessment/Plan Acute respiratory failure -s/p ventilator Afib s/p cardioversion 12/06 Congestive heart failure with EF of 20% methamphetamine and Marijuana use -Education EP 12/11 -Presented to ICU after EP study intubated DM II VISHNU DE LOS SANTOS DO Dec 19, 2019 07:18
--- NOTE | 2019-12-19 08:25 | Cardiology Progress Note ---
Subjective Date Seen by Provider: Dec 19, 2019 Time Seen by Provider: 08:22 Subjective/Events-last exam Patient is laying down in bed, feeling better today. Having some headache otherwise no new complaint Review of Systems General: No Chills, No Night Sweats, No Fatigue, No Malaise, No Appetite, No Other HEENT: No Head Aches, No Visual Changes, No Eye Pain, No Ear Pain, No Dysphasia, No Sinus Congestion, No Post Nasal Drip, No Sore Throat, No Other Pulmonary: No Dyspnea, No Cough, No Pleuritic Chest Pain, No Other Cardiovascular: Edema; No: Chest Pain, Palpitations, Orthopnea, Paroxysmal Noc. Dyspnea, Lt Headedness, Other Focused Exam Time of Focused Exam: 02:40 Objective-Cardiology Exam Last Set of Vital Signs Vital Signs 12/16/19 12/19/19 12/19/19 12/19/19 20:00 04:00 06:53 07:08 Temp 37.7 Pulse 97 Resp 22 B/P (MAP) 151/82 (105) Pulse Ox 94 O2 Delivery Nasal Cannula O2 Flow Rate 3.00 FiO2 30 Capillary Refill : Less Than 3 SecondsLess Than 3 Seconds I&O Intake and Output 12/19/19 00:00 Intake Total 2172 ml Output Total 1080 ml Balance 1092 ml Intake Oral 2172 ml Output Urine Total 1080 ml # Bowel Movements 2 General: Alert, Oriented X3, Cooperative, No Acute Distress HEENT: Atraumatic, PERRLA, Mucous Memb Moist/[place] Neck: Supple Lungs: Clear to Auscultation, Normal Air Movement Heart: Regular Rate, Normal S1, Normal S2, No Murmurs Abdomen: Normal Bowel Sounds, Soft, No Tenderness, No Masses Extremities: Other (+2 pedal edema) Skin: No Rashes Neuro: Normal Speech, Sensation Intact, Cranial Nerves 3-12 NL Psych/Mental Status: Mental Status NL, Mood NL Results Lab Laboratory Tests 12/19/19 05:15 A/P-Cardiology Admission Diagnosis Acute respiratory failure Atrial flutter Congestive heart failure, acute left ventricular systolic dysfunction, nonischemic cardiomyopathy Hypertension Assessment/Plan Status post acute respiratory failure, doing better at this time, on nasal cannula. Feeling better, managed by primary care team Coronary angiogram done by Dr. Storm on December 12, 2019 showing mild coronary artery disease nonobstructive disease Congestive heart failure, acute on chronic left ventricular systolic dysfunction, ejection fraction 20 percent, nonischemic cardiomyopathy, managed with Dr. Storm, started on Coreg and losartan and tolerating it well. Hypernatremia, Lasix currently on hold, I will give him a dose of Lasix IV and start him on daily oral Lasix with potassium replacement Hypokalemia, replaced, I'll place him on daily potassium supplement Scrotal swelling and cellulitis, defer to the primary team. Treatment with IV antibiotics. Meth abuse, strongly recommended to quit. Atrial flutter with 2-1 AV block. Refractory to medical therapy with IV Cardizem. Patient is on Eliquis. Cardioversion was performed with anesthesia support on 12/07/2019. Underwent ablation on December 12, 2019, currently in sinus rhythm Recent Acute stroke, status post thrombolytics, resolution. Will require rehabilitation. Previous admission showed Positive cardiac enzymes. Coronary angiography is contraindicated in an acute stroke for at least a month from the index event which was on 11/10/2019. Underwent cardiac catheterization on 12/12/2019 as d iscussed above. Tobaccoism, smoking cessation was strongly recommended. DM, defer to the primary team. HTN, continue to monitor blood pressure Hyperlipidemia, high-dose Lipitor therapy. RBBB, left anterior fascicular block. Continue to monitor Noncompliance with medication, educated in length about compliance with medicine Clinical Quality Measures DVT/VTE Risk/Contraindication: Risk Factor Score Per Nursin RFS Level Per Nursing on Admit: 4+=Very High NIKA SOSA MD Dec 19, 2019 8:25 am
[2019-12-19] MEDS ORDERED: FUROSEMIDE 40 MG/4 ML INJ (LASIX) IVP ONE (08:30)
[2019-12-19] MEDS: NICOTINE 21 MG (NICODERM) PATCH TD SCH (08:56)
[2019-12-19] MEDS: NICOTINE PATCH REMOVAL TP SCH (08:56)
[2019-12-19] MEDS: CLOPIDOGREL 75 MG (PLAVIX) TABLET PO SCH (08:56)
[2019-12-19] MEDS: FUROSEMIDE 40 MG (LASIX) TAB PO SCH (08:56)
[2019-12-19] MEDS: FAMOTIDINE 20 MG (PEPCID) TABLET PO SCH ×2 (08:56→21:32)
[2019-12-19] MEDS: CARVEDILOL 3.125 MG (COREG) TABLET PO SCH ×2 (08:56→21:32)
[2019-12-19] MEDS: LOSARTAN 25 MG (COZAAR) TAB PO SCH (08:56)
[2019-12-19] MEDS: polyethylene glycoL POWDER 17 GM (MIRALAX) PACK PO SCH (08:56)
--- NOTE | 2019-12-19 09:07 | NUR ---
prior to b/p medications this a.m. pulse was 96 bpm and b/p was 168/88
--- NOTE | 2019-12-19 09:50 | Physical Therapy Daily Note ---
PT Daily Note-Current Subjective Patient is in good spirits and agrees to PT. O2 not in place and SAO2 92%. RN notified. Pain Numeric Pain Scale: 10-Worst Possible Pain Location: Soft Tissue Location Body Site: Genital Pain Description: Pressure, Acute, Burning, Sharp Mental Status Patient Orientation: Normal For Age Attachments: Oxygen (3L), Reddy Catheter Transfers SCALE: Activities may be completed with or without assistive devices. 1-Qhsfqmcska-jpecxum completes the activity by him/herself with no assistance fr om a helper. 5-Set-up or Clean-up Assistance-helper sets up or cleans up; patient completes activity. [place] assists only prior to or following the activity. 4-Supervision or Touching Assistance-helper provides verbal cues and/or touching/steadying and/or contact guard assistance as patient completes activity. Assistance may be provided throughout the activity or intermittently. 3-Partial/Moderate Assistance-helper does LESS THAN HALF the effort. [place] lifts, holds or supports trunk or limbs, but provides less than half the effort. 2-Substantial/Maximal Assistance-helper does MORE THAN HALF the effort. [place] lifts or holds trunk or limbs and provides more than half the effort. 2-Wmgbpedcv-xoqmls does ALL the effort. Patient does none of the effort to complete the activity. Or, the assistance of 2 or more helpers is required for the patient to complete the activity. If activity was not attempted, code reason: 7-Patient Refused. 9-Not Applicable-not attempted and the patient did not perform the activity before the current illness, exacerbation or injury. 10-Not Attempted due to Environmental Limitations-(lack of equipment, weather restraints, etc.). 88-Not Attempted due to Medical Conditions or Safety Concerns. Roll Left & Right (QC): 3 Lying to Sitting/Side of Bed(Q: 3 Sit to Stand (QC): 4 Chair/Mqk-bb-Klkna Xfer(QC): 4 Weight Bearing Right Lower Extremity: Right Weight Bearing/Tolerated Left Lower Extremity: Left Weight Bearing/Tolerated Gait Training Does the Patient Walk?: Yes Distance: 10' x 2 Walk 10 feet (QC): 4 Gait Assistive Device: FWW WBOS due to scrotal edema Assessment Patient requires time to complete all functional tasks due to scrotal edema and pain. Patient does yell during treatment session. PT to increase activity as tolerated by patient. PT Short Term Goals Short Term Goals Time Frame: Dec 19, 2019 PT Cap Cutter Goals Cap Cutter Goals PT Cap Cutter Goals Time Frame: Dec 25, 2019 Roll Left & Right (QC): 3 Sit to Lying (QC): 3 Lying-Sitting on Side/Bed(QC): 3 Sit to Stand (QC): 4 Chair/Gum-qd-Jtkgk Xfer(QC): 4 Walk 10 feet (QC): 4 PT Plan Treatment/Plan Treatment Plan: Continue Plan of Care Treatment Plan: Bed Mobility, Education, Functional Activity Jay, Functional Strength, Gait, Safety, Therapeutic Exercise, Transfers Treatment Duration: Dec 25, 2019 Frequency: 6 times per week Estimated Hrs Per Day: .25 hour per day Patient and/or Family Agrees t: Yes Time/GCodes Time In: 851 Time Out: 914 Total Billed Treatment Time: 23 Total Billed Treatment 1 visit FA x 2 23 min TALON CANELA PT Dec 19, 2019 09:50
--- NOTE | 2019-12-19 11:40 | Occupational Therapy Eval ---
OT Evaluation-General/PLF Medical Diagnosis Admission Date Dec 06, 2019 at 02:45 Medical Diagnosis: ARF Onset Date: Dec 06, 2019 Therapy Diagnosis Therapy Diagnosis: Decreased ADL status Height/Weight Height (Feet): 5 Height (Inches): 11.00 Weight (Pounds): 358 Weight (Ounces): 1.0 Precautions Precautions/Isolations: Aspiration, Fall Prevention, Standard Precautions Referral Physician: Jacqui Jackson MD Referral Reason: Activity Tolerance, Self Care, Evaluation/Treatment, Strengthening/ROM Medical History Pertinent Medical History: DM, HTN, Smoking Current History CVA hx within mo states pt. Pt does not remember what was affected; pt admits to ER with pain and swelling in scrotum 12/05. Pt ventilated December 13-. Reviewed History: Yes Social History Home: Single Level Current Living Status: Spouse Entry Into Home: Ramp ADL-Prior Level of Function SCALE: Activities may be completed with or without assistive devices. 5-Xdhkwltidm-hgefpkv completes the activity by him/herself with no assistance from a helper. 5-Set-up or Clean-up Assistance-helper sets up or cleans up; patient completes activity. [place] assists only prior to or following the activity. 4-Supervision or Touching Assistance-helper provides verbal cues and/or touching/steadying and/or contact guard assistance as patient completes activity. Assistance may be provided throughout the activity or intermittently. 3-Partial/Moderate Assistance-helper does LESS THAN HALF the effort. [place] lifts, holds or supports trunk or limbs, but provides less than half the effort. 2-Substantial/Maximal Assistance-helper does MORE THAN HALF the effort. [place] lifts or holds trunk or limbs and provides more than half the effort. 2-Hstkzwupx-eatvny does ALL the effort. Patient does none of the effort to complete the activity. Or, the assistance of 2 or more helpers is required for the patient to complete the activity. If activity was not attempted, code reason: 7-Patient Refused. 9-Not Applicable-not attempted and the patient did not perform the activity before the current illness, exacerbation or injury. 10-Not Attempted due to Environmental Limitations-(lack of equipment, weather restraints, etc.). 88-Not Attempted due to Medical Conditions or Safety Concerns. ADL PLOF Comments Pt states IND with ADL tasks, assist with IADL. Self Care: Independent Functional Cognition: Independent Occupation: disabled. Drive Self: Yes OT Current Status Subjective Pt seen in recliner chair, slumped posture. Pt does not rate pain, very vocal upon movement. Pt agrees to therapy. Mental Status/Objective Patient Orientation: Person, Place, Time, Situation Attachments: Reddy Catheter, Oxygen Current Hand Dominance: Right Upper Extremity ROM WFL BUE Upper Extremity Coordination WFL BUE Upper Extremity Sensation WFL per pt Upper Extremity Strength R shoulder flexion 3+/5 All other joints WNL (4+/5) Edema: weeping/ pitting edema LLE (foot to groin); pitting RLE. ADL-Treatment Eating (QC): 6 (per clinical judgment pt is IND with this task.) Oral Hygiene (QC): 6 (per clinical judgment pt is IND with this task if seated. ) Lower Body Dressing (QC): 1 (per clinical judgment pt is TD with this task as 2 people assist for sit to stand and pt unable to remove hand from walker for balance. ) On/Off Footwear (QC): 2 (max A. Pt able to push sock down, unable to doff or don. Able to extend BLE for donning.) Toileting Hygiene (QC): 1 (TD (Max Ax2 for stance) with TD for hygiene. Nursing present. Pt's deedee soiled.) Other Treatments Pt states hx with accuracy, though does not know what affected with previous CVA. Pt's RUE decreased strength in shoulder. Pt attempts sock doff/ donning, unable. States can assist though he doesn't plan to ask. Pt asked to stand to assess standing balance and abilities during functional tasks. Pt unable to stand with max A x1 with 2 attempts. Nursing provides 2nd person assist, stands with max A x2 to 4WW. Pt unable to follow cues for foot position, pt encouraged to bring legs back to chair, pt continues to take min steps forward and extends R hip/ flexes knee (standing on L foot only). Pt must be given max cues for positioning/ safety. Pt's bottom cleaned TD. Based on balance/ safety, pt TD for toilet hygiene and LB dressing as pt requires cues for placement and unable to safely take hands from walker at this time during functional tasks. Pt returns to sit, educated on edema management, pillow placed under BLE and all needs met. Call light in reach, left with urologist and nurse. Education OT Patient Education: Correct positioning, Exercise program, Purpose of tx/functional activities, Safety issues, Transfer techniques Teaching Recipient: Patient Teaching Methods: Demonstration, Discussion Response to Teaching: Verbalize Understanding, Return Demonstration OT Long-Term Goals Long-Term Goals Time Frame: Dec 26, 2019 Eating (QC): 6 Oral Hygiene (QC): 6 Toileting Hygiene (QC): 3 Shower/Bathe Self (QC): 3 Upper Body Dressing (QC): 6 Lower Body Dressing (QC): 3 On/Off Footwear (QC): 6 Additional Goals: 1-Demonstrate ADL Tasks, 2-Verbalize Understanding, 3- ImproveStrength/Jay 1=Demonstrate adherence to instructed precautions during ADL tasks. 2=Patient will verbalize/demonstrate understanding of assistive devices/modifications for ADL. 3=Patient will improve strength/tolerance for activity to enable patient to perform ADL's. OT Education/Plan Problem List/Assessment Assessment: Decreased Activ Tolerance, Decreased Safety Aware, Decreased UE Strength, Dependent Transfers, Edema, Impaired Bed Mobility, Impaired Funct Balance, Impaired I ADL's, Impaired Self-Care Skills Discharge Recommendations Plan/Recommendations: Continue POC Therapy Discharge Recommendati: 24 Hour Supervision, Post Acute OT Treatment Plan/Plan of Care Treatment,Training & Education: Yes Patient would benefit from OT for education, treatment and training to promote independence in ADL's, mobility, safety and/or upper extremity function for ADL's. Plan of Care: ADL Retraining, Caregiver Training, Functional Mobility, Group Exercise/Act as Ind, UE Funct Exercise/Act, W/C Management Training Treatment Duration: Dec 26, 2019 Frequency: 5 times per week Estimated Hrs Per Day: .25 hour per day Agreement: Yes Rehab Potential: Guarded Time/GCodes Start Time: 11:05 Stop Time: 11:20 Total Time Billed (hr/min): 15 Billed Treatment Time 1ORSE (15) JUWAN ALVAREZ OTR Dec 19, 2019 11:40
--- NOTE | 2019-12-19 12:22 | CONSULTATION REPORT ---
DATE OF SERVICE: 12/19/2019 ATTENDING PHYSICIAN: Dr. Jacqui Jackson. SUMMARY: A 54-year-old white man with multiple medical problems, who has been here for a while, switching between the floor and the ICU, having sepsis, scrotal cellulitis and edema, edema of the extremities, had a catheter since he has been here and just yesterday had some hematuria; the Eliquis was held. The urine is clear today. The patient denies any voiding symptoms at home. Denies previous hematuria. He smokes one pack of cigarettes a day. ALLERGIES: He has no known drug allergies. He has, as I said, multiple medical issues. PHYSICAL EXAMINATION: There is edema of the scrotum, part of generalized edema of the lower extremities and the lower abdomen. He is on Lasix. IMPRESSION: Gross hematuria, resolved. PLAN: Once the edema issue, the swelling of the genitalia, the scrotal swelling resolves or much improved, the patient is going to need a cystoscopy to confirm the bladder not being a source of the blood. He would also need a noncontrast CT scan of the abdomen and pelvis to rule out the upper tracts. Being a smoker, also increase his chance of bladder tumor. As regard to the Eliquis, he can resume that once he stays with no hematuria for at least 24 hours. Job ID: [id number] DocumentID: [id number] Dictated Date: 12/19/2019 11:44:06 Commission Auditor Date: 12/19/2019 12:22:10 Dictated By: RONNIE ELLIOTT MD
--- NOTE | 2019-12-19 13:52 | Diagnostic Imaging Report ---
PROCEDURE: CT urinary tract, rule out kidney stone. TECHNIQUE: Multiple contiguous axial images were obtained through the abdomen and pelvis without the use of intravenous contrast. Auto Exposure Controls were utilized during the CT exam to meet ALARA standards for radiation dose reduction. INDICATION: Gross hematuria. COMPARISON: None. FINDINGS: Included portions of the lung bases show moderate cardiomegaly and moderate bilateral pleural effusions, right greater than left. There is also significant atelectasis of the included portions of bilateral lower lobes. CT abdomen: Moderate air and stool is seen scattered throughout the colon. Normal appendix is identified. Small bowel loops are nondistended. No renal or ureteral calculi are seen on either side. Additionally, there is no hydronephrosis or other evidence of obstruction. No focal renal masses are seen. Spleen shows geographic areas of decreased attenuation greatest involving its inferior margins. Although suboptimally characterized on this noncontrast exam, overall appearance is suggestive of subacute splenic infarcts. Left adrenal lesion measures 2.5 cm in diameter. Hounsfield units of -15 are consistent with benign adenoma. Right adrenal gland has an unremarkable noncontrast CT appearance. Liver and pancreas have an unremarkable noncontrast CT appearance. Note is made of cholelithiasis. There is small amount of free fluid scattered throughout the abdomen. Note is also made of diffuse anasarca. There is no loculated fluid collection or free air within the abdomen. A few scattered mildly prominent-appearing retroperitoneal lymph nodes are identified. Largest is seen interposed between the left psoas muscle and left common iliac artery. It measures 1.7 x 1.2 cm. No abnormal mesenteric adenopathy is seen. There is fat-containing periumbilical hernia. Ostium measures 1.7 cm in diameter. Osseous structures show no acute abnormalities. CT pelvis: Urinary bladder is unopacified and decompressed. There is small amount of gas seen within the lumen of the urinary bladder. Indwelling Reddy catheter is also present. Small amount of fluid is also seen within the pelvis. There is no loculated fluid collection or free air. Anasarca is noted. There is also swelling of the genitalia. Enlarged left inguinal lymph node measures 3.6 x 2 cm. IMPRESSION: 1. Unremarkable noncontrast CT of the kidneys and renal collecting systems. 2. Large bilateral pleural effusions, small amount of abdominal pelvic ascites, and generalized anasarca. Please correlate with third spacing. 3. Cardiomegaly. 4. Cholelithiasis. 5. Findings suggestive of subacute splenic infarcts. Correlation with postcontrast CT may be of benefit for further characterization. 6. Prominent retroperitoneal and bilateral inguinal adenopathy. While this may be reactive, underlying metastatic or neoplastic lymphoproliferative process cannot be excluded. 7. Moderate colonic air and stool. Please correlate for constipation. 8. Fat-containing umbilical hernia. Dictated by: Dictated on workstation # [id number]
--- NOTE | 2019-12-19 14:20 | NUR ---
2900 mls of output was from cont. bladder irrigation. Addendum: 12/19/19 at 1422 by AYALA BREAUX RN wrong patient chart
[2019-12-19 14:32] LABS: BILIRUBIN,URINE NEGATIVE (NEGATIVE); CLARITY,URINE CLOUDY; COLOR,URINE ORANGE; GLUCOSE, URINE (UA) TRACE (NEGATIVE); KETONES,URINE NEGATIVE (NEGATIVE); LEUKOCYTE ESTERASE ,URINE NEGATIVE (NEGATIVE); NITRITE,URINE NEGATIVE (NEGATIVE); PROTEIN,URINE TRACE (NEGATIVE)
[2019-12-19 14:43] LABS: BACTERIA,URINE TRACE /HPF; RBC,URINE >100 /HPF; WBC,URINE 0-2 /HPF
--- NOTE | 2019-12-19 15:48 | Progress Note ---
Subjective Subjective/Events-last exam Patient stable today. Up in chair. Breathing improved. Still having diffuse swelling. Gross hematuria improved from last night. Review of Systems Pulmonary: Dyspnea, Cough Cardiovascular: Edema; No: Chest Pain, Palpitations Gastrointestinal: Constipation; No: Nausea, Vomiting, Abdominal Pain Neurological: Weakness, Incoordination Focused Exam Time of Focused Exam: 02:40 Objective Exam Last Set of Vital Signs Vital Signs Date Time Temp Pulse Resp B/P (MAP) Pulse Ox O2 Delivery O2 Flow Rate FiO2 12/19/19 14:29 93 Nasal Cannula 3.00 12/19/19 12:29 103 12/19/19 12:00 36.2 20 158/82 (107) 12/16/19 20:00 30 Capillary Refill : Less Than 3 SecondsLess Than 3 Seconds I&O Intake and Output 12/19/19 00:00 Intake Total 2172 ml Output Total 1080 ml Balance 1092 ml Intake Oral 2172 ml Output Urine Total 1080 ml # Bowel Movements 2 General: Alert, Oriented X3, Cooperative, No Acute Distress Lungs: Normal Air Movement, Other (diminished breath sounds, normal work of breathing) Heart: Regular Rate, No Murmurs Abdomen: Normal Bowel Sounds, Soft, No Tenderness Extremities: Other (4+ pitting edema in LE, severe scrotal swelling) Neuro: Normal Speech, Sensation Intact, Cranial Nerves 3-12 NL Results/Procedures Lab Laboratory Tests 12/18/19 15:53: Glucometer 214H 12/18/19 20:11: Glucometer 162H 12/19/19 05:15: White Blood Count 8.5, Red Blood Count 4.12L, Hemoglobin 11.2L, Hematocrit 37L, Mean Corpuscular Volume 90, Mean Corpuscular Hemoglobin 27, Mean Corpuscular Hemoglobin Concent 30L, Red Cell Distribution Width 15.3H, Platelet Count 228, Mean Platelet Volume 10.2, Neutrophils (%) (Auto) 70, Lymphocytes (%) (Auto) 17, Monocytes (%) (Auto) 8, Eosinophils (%) (Auto) 4, Basophils (%) (Auto) 1, Neutrophils # (Auto) 5.9, Lymphocytes # (Auto) 1.5, Monocytes # (Auto) 0.7, Eosinophils # (Auto) 0.3, Basophils # (Auto) 0.1, Sodium Level 144, Potassium Level 3.6, Chloride Level 108H, Carbon Dioxide Level 27, Anion Gap 9, Blood Urea Nitrogen 15, Creatinine 0.92, Estimat Glomerular Filtration Rate > 60, BUN/Creatinine Ratio 16, Glucose Level 84, Calcium Level 8.5, Phosphorus Level 2.1L, Magnesium Level 1.9 12/19/19 11:55: Urine Color ORANGE, Urine Clarity CLOUDY, Urine pH 8.0, Urine Specific [place] 1.015L, Urine Protein TRACEH, Urine Glucose (UA) TRACEH, Urine Ketones NEGATIVE, Urine Nitrite NEGATIVE, Urine Bilirubin NEGATIVE, Urine Urobilinogen 4.0, Urine Leukocyte Esterase NEGATIVE, Urine RBC (Auto) 3+H, Urine RBC >100H, Urine WBC 0- 2, Urine Crystals NONE, Urine Bacteria TRACE, Urine Casts NONE, Urine Mucus NEGATIVE, Urine Culture Indicated NO Microbiology 12/12/19 Gram Stain - Final, Complete 12/12/19 Sputum Culture - Final, Complete Usual upper respiratory мария YEAST 12/06/19 Blood Culture - Final, Complete No growth 12/06/19 Urine Culture - Final, Complete NO GROWTH Radiology CXR 12/04: IMPRESSION: "Cardiomegaly with without pulmonary venous hypertension. This is improved compared 11/30/2019. Assessment/Plan Assessment/Plan (1) Hematuria Status: Acute Assessment & Plan: 12/17: Hold eliquis and consult Urology 12/18: Will restart Eliquis in AM per Urology if he continues to have clear urine, 24 hrs w/o hematuria Qualifiers: Qualified Codes: R31.0 - Gross hematuria (2) Acute respiratory failure Status: Acute Assessment & Plan: 12/15: Extubated this AM, on bipap will wean as tolerated, Dr Roy managing 12/16: Transitioned to NC, breathing comfortably, continue to titrate as tolerated 12/18: NC 2-3 L today Qualifiers: Qualified Codes: J96.01 - Acute respiratory failure with hypoxia (3) Hypernatremia Status: Resolved Assessment & Plan: 12/16: Lasix dose decreased, LR TKO, continue to monitor (4) Acute systolic CHF (congestive heart failure) Status: Acute Assessment & Plan: - Dr Burgess consulted, appreciate recommendations 12/18: Lasix 40 mg PO daily (5) Atrial fibrillation with RVR Status: Acute Assessment & Plan: 12/15: Dr Storm consulted and patient had ablation 12/18: Patient remains in SR (6) Cellulitis, scrotum Status: Acute Assessment & Plan: Zosyn and vancomycin. 12/15: Zosyn, elevation and cold compresses to scrotum to help with swelling (7) Sepsis Status: Resolved Assessment & Plan: Tachycardia, mildly elevated initial lactic acid (resolved). Suspect secondary to cellulitis. Zosyn and vancomycin. Qualifiers: Qualified Codes: A41.9 - Sepsis, unspecified organism (8) Elevated troponin Status: Resolved Assessment & Plan: Mildly elevated, suspect secondary to tachycardia and sepsis, Cardiology consulted, appreciate recommendations. (9) T2DM (type 2 diabetes mellitus) Status: Chronic Assessment & Plan: Hold metformin, diabetic diet, sliding scale insulin. Qualifiers: (10) Congestive heart failure Assessment & Plan: EF 20%, discharged with lifevest last stay. BNP elevated, tachycardic, Cardiology consulted, appreciate recommendations. Qualifiers: Qualified Codes: I50.20 - Unspecified systolic (congestive) heart failure (11) HLD (hyperlipidemia) Status: Chronic Assessment & Plan: Resume home statin (12) Methamphetamine intoxication Status: Acute Assessment & Plan: 12/15: Discussed the need for cessation (13) HTN (hypertension) Status: Chronic Assessment & Plan: Hold home antihypertensive, currently normal to low BP. Qualifiers: Qualified Codes: I10 - Essential (primary) hypertension (14) Constipation Status: Acute Assessment & Plan: 12/17: Start Miralax TID until patient has BM Qualifiers: Qualified Codes: K59.00 - Constipation, unspecified (15) DVT prophylaxis Status: Acute Assessment & Plan: On chronic apixaban, resumed. 12/18: Will restart Apixaban in AM Clinical Quality Measures DVT/VTE Risk/Contraindication: Risk Factor Score Per Nursin RFS Level Per Nursing on Admit: 4+=Very High KIN LAU MD Dec 19, 2019 15:48
--- NOTE | 2019-12-19 17:36 | NUR ---
report given to rachel borges who will assume care of this patient.
[2019-12-19] MEDS: HYDROcodone/APAP 5 MG/325 MG (LORTAB) TAB PO PRN (21:32)
[2019-12-20] MEDS: ACETAMINOPHEN 500 MG TAB (TYLENOL) PO PRN (00:10)
[2019-12-20] MEDS: RT-ALBUTEROL/IPRATROPIUM 3 ML (DUONEB) VIAL INH SCH ×4 (02:57→22:13)
[2019-12-20 03:20] VITALS: BP 131/80
[2019-12-20] MEDS: inSUlin ASPART (NovoLOG) 1 UNIT/0.01 ML (CHARGE PER UNIT) SC SCH ×4 (06:21→22:00)
[2019-12-20 06:27] LABS: BASOPHILS % (AUTO) 1 % (0-10); EOSINOPHILS # (AUTO) 0.3 10^3/uL (0.0-0.3); EOSINOPHILS % (AUTO) 4 % (0-10); HEMATOCRIT 38 % (40-54); HEMOGLOBIN 11.2 G/DL (13.3-17.7); LYMPHOCYTES # (AUTO) 1.2 X 10^3 (1.0-4.0); LYMPHOCYTES % (AUTO) 15 % (12-44); MEAN CORPUSCULAR HEMOGLOBIN 27 PG (25-34); MEAN CORPUSCULAR HGB CONC 30 G/DL (32-36); MEAN CORPUSCULAR VOLUME 90 FL (80-99); MEAN PLATELET VOLUME 10.4 FL (7.4-10.4); MONOCYTES # (AUTO) 0.5 X 10^3 (0.0-1.0); MONOCYTES % (AUTO) 7 % (0-12); NEUTROPHILS # (AUTO) 5.8 X 10^3 (1.8-7.8); NEUTROPHILS % (AUTO) 74 % (42-75); PLATELET COUNT 240 10^3/uL (130-400); RED CELL DISTRIBUTION WIDTH 15.2 % (10.0-14.5); WHITE BLOOD COUNT 7.9 10^3/uL (4.3-11.0)
[2019-12-20] MEDS: KCL 20 MEQ TAB (K-DUR) PO SCH ×2 (06:43→07:05)
[2019-12-20 06:47] LABS: CHLORIDE 110 MMOL/L (98-107); POTASSIUM 3.7 MMOL/L (3.6-5.0); SODIUM 146 MMOL/L (135-145)
[2019-12-20 06:48] LABS: CALCIUM 8.5 MG/DL (8.5-10.1)
[2019-12-20 06:49] LABS: GLUCOSE 100 MG/DL (70-105)
[2019-12-20 06:50] LABS: CARBON DIOXIDE 26 MMOL/L (21-32)
[2019-12-20 06:52] LABS: PHOSPHORUS 2.7 MG/DL (2.3-4.7)
[2019-12-20 06:53] LABS: CREATININE SERUM 0.73 MG/DL (0.60-1.30); GFR ESTIMATED > 60
[2019-12-20 06:54] LABS: BUN/CREATININE RATIO 21
[2019-12-20 06:55] LABS: MAGNESIUM 2.1 MG/DL (1.6-2.4)
[2019-12-20] MEDS: HYDROcodone/APAP 5 MG/325 MG (LORTAB) TAB PO PRN (07:06)
[2019-12-20 08:00] VITALS: BP 165/96
[2019-12-20] MEDS: CARVEDILOL 3.125 MG (COREG) TABLET PO SCH ×2 (08:16→22:06)
[2019-12-20] MEDS: NICOTINE 21 MG (NICODERM) PATCH TD SCH (08:17)
[2019-12-20] MEDS: FUROSEMIDE 40 MG (LASIX) TAB PO SCH (08:17)
[2019-12-20] MEDS: CLOPIDOGREL 75 MG (PLAVIX) TABLET PO SCH (08:17)
[2019-12-20] MEDS: NICOTINE PATCH REMOVAL TP SCH (08:17)
[2019-12-20] MEDS: polyethylene glycoL POWDER 17 GM (MIRALAX) PACK PO SCH (08:17)
[2019-12-20] MEDS: LOSARTAN 25 MG (COZAAR) TAB PO SCH (08:17)
[2019-12-20] MEDS: FAMOTIDINE 20 MG (PEPCID) TABLET PO SCH ×2 (08:20→22:06)
--- NOTE | 2019-12-20 09:00 | Progress Note - Urology ---
Progress Note-Urology Progress Notes/Assess & Plan Progress/Assessment & Plan CT SHOWED NO UROLOGICAL PATHOLOGY Final Diagnosis GROSS HEMATURIA RONNIE ELLIOTT MD Dec 20, 2019 09:00
--- NOTE | 2019-12-20 10:24 | Progress Note - Hospitalist ---
Subjective HPI/CC On Admission Date Seen by Provider: Dec 20, 2019 Time Seen by Provider: 10:30 Subjective/Events-last exam Patient doing better Requesting medicated powder Fluid loss from Diuresis is going well Brother at the bedside Review of Systems General: Fatigue, Malaise Cardiovascular: Edema Focused Exam Time of Focused Exam: 02:40 Objective Exam Vital Signs Vital Signs Date Time Temp Pulse Resp B/P (MAP) Pulse Ox O2 Delivery O2 Flow Rate FiO2 12/20/19 12:42 91 12/20/19 12:00 36.1 22 155/85 (108) 97 Nasal Cannula 3.00 12/16/19 20:00 30 Capillary Refill : Less Than 3 SecondsLess Than 3 Seconds General Appearance: No Apparent Distress, WD/WN, Chronically ill, Obese Respiratory: Lungs Clear Cardiovascular: Regular Rate, Rhythm Extremity: Pedal Edema Neurologic/Psychiatric: Alert, Oriented x3, No Motor/Sensory Deficits, Normal Mood/Affect Results/Procedures Lab Laboratory Tests 12/20/19 05:36 Patient resulted labs reviewed. Assessment/Plan Assessment and Plan Assess & Plan/Chief Complaint Assessment: Acute volume overload requiring intubation Scrotal cellulitis Sepsis Meth use SVT episode Smoker Alcohol user Leucocytosis Edema Plan: Dr. Tyler consult IV antibiotics restarted after they completed after 5 days Cardiology consult DVT prophylaxis ICU for volume overload and hypoxia Maintain intubation Appreciate EICU help Coronavirus swab 12/20/2019 Assessment: Recent VDRF CHF Meth use Edema Plan: Continue IV Diuresis Hopefully insurance will approve rehab Monitor edema Critical Care Critically Ill Patient Diagnosis/Problems Diagnosis/Problems (1) Ventilator dependence (2) Congestive heart failure Qualifiers: Heart failure type: systolic Heart failure chronicity: unspecified Qualified Codes: I50.20 - Unspecified systolic (congestive) heart failure (3) Tachycardia Status: Resolved Resolution Date/Time: 12/16/19 @ 13:24 (4) Pneumonia (5) Methamphetamine abuse (6) Noncompliance Clinical Quality Measures DVT/VTE Risk/Contraindication: Risk Factor Score Per Nursin RFS Level Per Nursing on Admit: 4+=Very High GAYATRI GILL DO Dec 20, 2019 10:24
--- NOTE | 2019-12-20 10:28 | Cardiology Progress Note ---
Subjective Date Seen by Provider: Dec 20, 2019 Time Seen by Provider: 10:26 Subjective/Events-last exam Patient is laying down in bed, feeling better, still having some wheezing Review of Systems General: No Chills, No Night Sweats, No Fatigue, No Malaise, No Appetite, No Other HEENT: No Head Aches, No Visual Changes, No Eye Pain, No Ear Pain, No Dysphasia, No Sinus Congestion, No Post Nasal Drip, No Sore Throat, No Other Pulmonary: Dyspnea; No Cough, No Pleuritic Chest Pain, No Other Cardiovascular: Edema; No: Chest Pain, Palpitations, Orthopnea, Paroxysmal Noc. Dyspnea, Lt Headedness, Other Focused Exam Time of Focused Exam: 02:40 Objective-Cardiology Exam Last Set of Vital Signs Vital Signs 12/16/19 12/20/19 12/20/19 20:00 08:00 08:49 Temp 36.6 Pulse 92 Resp 20 B/P (MAP) 165/96 (119) Pulse Ox 94 O2 Delivery Nasal Cannula O2 Flow Rate 3.00 FiO2 30 Capillary Refill : Less Than 3 SecondsLess Than 3 Seconds I&O Intake and Output 12/20/19 00:00 Intake Total 2495 ml Output Total 2175 ml Balance 320 ml Intake Oral 2495 ml Output Urine Total 2175 ml General: Alert, Oriented X3, Cooperative, No Acute Distress HEENT: Atraumatic, PERRLA, Mucous Memb Moist/[place] Neck: Supple Lungs: Normal Air Movement, Other (diminished breath sounds, normal work of breathing, bilateral wheezing) Heart: Regular Rate, No Murmurs Abdomen: Normal Bowel Sounds, Soft, No Tenderness Extremities: Other (3+ pitting edema in LE, severe scrotal swelling) Skin: No Rashes Neuro: Normal Speech, Sensation Intact, Cranial Nerves 3-12 NL Psych/Mental Status: Mental Status NL, Mood NL Results Lab Laboratory Tests 12/20/19 05:36 A/P-Cardiology Admission Diagnosis Acute respiratory failure Atrial flutter Congestive heart failure, acute left ventricular systolic dysfunction, nonischemic cardiomyopathy Hypertension Assessment/Plan Status post acute respiratory failure, doing better at this time, on nasal cannu la, still having some wheezing. Continue with bronchodilators. Coronary angiogram done by Dr. Storm on December 12, 2019 showing mild coronary artery disease nonobstructive disease Congestive heart failure, acute on chronic left ventricular systolic dysfunction, ejection fraction 20 percent, nonischemic cardiomyopathy, managed with Dr. Storm, started on Coreg and losartan and tolerating it well. Continue with diuretics Hypernatremia, I will restart Lasix and monitor Hematuria, secondary to aggressive anticoagulation. Continue to monitor H&H Scrotal swelling and cellulitis, defer to the primary team. Treatment with IV antibiotics. Meth abuse, strongly recommended to quit. Atrial flutter with 2-1 AV block. Refractory to medical therapy with IV Cardizem. Patient is on Eliquis. Cardioversion was performed with anesthesia support on 12/07/2019. Underwent ablation on December 12, 2019, currently in sinus rhythm Recent Acute stroke, status post thrombolytics, resolution. Will require rehabilitation. Previous admission showed Positive cardiac enzymes. Coronary angiography is contraindicated in an acute stroke for at least a month from the index event which was on 11/10/2019. Underwent cardiac catheterization on 12/12/2019 as discussed above. Tobaccoism, smoking cessation was strongly recommended. DM, defer to the primary team. HTN, continue to monitor blood pressure Hyperlipidemia, high-dose Lipitor therapy. RBBB, left anterior fascicular block. Continue to monitor Noncompliance with medication, educated in length about compliance with medicine Clinical Quality Measures DVT/VTE Risk/Contraindication: Risk Factor Score Per Nursin RFS Level Per Nursing on Admit: 4+=Very High NIKA SOSA MD Dec 20, 2019 10:28
[2019-12-20] MEDS: MICONAZOLE 2% POWDER (DESENEX AF) 90 GM TOP SCH (11:26)
--- NOTE | 2019-12-20 11:47 | Physical Therapy Daily Note ---
PT Daily Note-Current Subjective Patient in bed pre tx, agrees to PT, has 3/10 pain in groin area. Will be co- treating with OT due to poor patient mobility, strength, endurance, pain with activity, the need to coordinate UE and LE during activity, decrease risk of falls. Appearance Patient in recliner post tx with nurse call, phone, tray, legs elevated, family in the room. Mental Status Patient Orientation: Person, Place, Situation Attachments: Oxygen Transfers SCALE: Activities may be completed with or without assistive devices. 8-Aqjuaawyek-zzkqxat completes the activity by him/herself with no assistance from a helper. 5-Set-up or Clean-up Assistance-helper sets up or cleans up; patient completes activity. [place] assists only prior to or following the activity. 4-Supervision or Touching Assistance-helper provides verbal cues and/or touching/steadying and/or contact guard assistance as patient completes activity. Assistance may be provided throughout the activity or intermittently. 3-Partial/Moderate Assistance-helper does LESS THAN HALF the effort. [place] lifts, holds or supports trunk or limbs, but provides less than half the effort. 2-Substantial/Maximal Assistance-helper does MORE THAN HALF the effort. [place] lifts or holds trunk or limbs and provides more than half the effort. 0-Wfmaetyma-lzdyyl does ALL the effort. Patient does none of the effort to complete the activity. Or, the assistance of 2 or more helpers is required for the patient to complete the activity. If activity was not attempted, code reason: 7-Patient Refused. 9-Not Applicable-not attempted and the patient did not perform the activity before the current illness, exacerbation or injury. 10-Not Attempted due to Environmental Limitations-(lack of equipment, weather restraints, etc.). 88-Not Attempted due to Medical Conditions or Safety Concerns. Roll Left & Right (QC): 2 Lying to Sitting/Side of Bed(Q: 2 Sit to Stand (QC): 3 Chair/Tdm-fa-Luicn Xfer(QC): 3 Patient needs max assist for supine to sit, min assist for sit to stand from an elevated bed. Nurse brings in medicated power for his groin which he wants very much. Weight Bearing Right Lower Extremity: Right Weight Bearing/Tolerated Left Lower Extremity: Left Weight Bearing/Tolerated Gait Training Distance: 20' Walk 10 feet (QC): 4 Gait Persons Needed: 1 Gait Assistive Device: FWW Patient takes very shorts steps (just few inches), and has a wide ROSEMARY, leans heavily on the walker. Exercises Seated Therapy Exercises: Ankle pumps, Long arc quads Seated Reps: 20 Treatments bed mobility and transfers, ambulation, LE exercise, also dressing lower while seated on the side of the bed. PT performed bed mobility and transfers and ambulation, LE exercise, positioning and safety during dressing, OT performed dressing, assist with transfers and ambulation, UE positioning and safety during activity. Assessment Current Status: Fair Progress increased distance of ambulation, still requires a lot of assist for supine to sit. PT Short Term Goals Short Term Goals Time Frame: Dec 19, 2019 PT Chcf Goals Chcf Goals PT Guardian Ad Litem Goals Time Frame: Dec 25, 2019 Roll Left & Right (QC): 3 Sit to Lying (QC): 3 Lying-Sitting on Side/Bed(QC): 3 Sit to Stand (QC): 4 Chair/Brs-hj-Eeojv Xfer(QC): 4 Walk 10 feet (QC): 4 PT Plan Problem List Problem List: Activity Tolerance, Functional Strength, Safety, Balance, Gait, Transfer, Bed Mobility, ROM Treatment/Plan Treatment Plan: Continue Plan of Care Treatment Plan: Bed Mobility, Education, Functional Activity Jay, Functional Strength, Gait, Safety, Therapeutic Exercise, Transfers Treatment Duration: Dec 25, 2019 Frequency: 6 times per week Estimated Hrs Per Day: .25 hour per day Patient and/or Family Agrees t: Yes Safety Risks/Education Patient Education: Gait Training, Transfer Techniques, Correct Positioning, Safety Issues Teaching Recipient: Patient Teaching Methods: Demonstration, Discussion Response to Teaching: Reinforcement Needed Time/GCodes Time In: 1112 Time Out: 1128 Total Billed Treatment Time: 16 Total Billed Treatment 1 visit FA 16' Co-treated with OT for the whole 16' FAUSTINO YBARRA PT Dec 20, 2019 11:47
[2019-12-20 12:00] VITALS: BP 155/85
--- NOTE | 2019-12-20 12:00 | Occupational Ther Daily Note ---
OT Current Status-Daily Note Subjective Pt in bed, agrees to therapy, reports 3/10 pain in groin ADL-Treatment Co-treat with PT secondary to need for 2 skilled therapists to address decreased mobility, activity tolerance, and functional ability. Pt supine to sit with max assist. Pt required max assist to thread bilateral LE into shorts. Sit to stand with min assist from elevated bed. Max assist to complete pant hike. Pt ambulated around bed to chair with FWW, slow pace. Pt requires cues for safety and assist to manage O2 tubing. Pt transferred to chair and is sitting with needs met after session. OT focusing on ADLs, transfers, and safety. PT focusing on bed mobility, gait, and transfers. Therapy Code Descriptions/Definitions Functional [place] Measure: 0=Not Assessed/NA 4=Minimal Assistance 1=Total Assistance 5=Supervision or Setup 2=Maximal Assistance 6=Modified [place] 3=Moderate Assistance 7=Complete IndependenceSCALE: Activities may be completed with or without assistive devices. 9-Xibopnazwi-zyxevwr completes the activity by him/herself with no assistance from a helper. 5-Set-up or Clean-up Assistance-helper sets up or cleans up; patient completes activity. [place] assists only prior to or following the activity. 4-Supervision or Touching Assistance-helper provides verbal cues and/or touching/steadying and/or contact guard assistance as patient completes activity. Assistance may be provided throughout the activity or intermittently. 3-Partial/Moderate Assistance-helper does LESS THAN HALF the effort. [place] lifts, holds or supports trunk or limbs, but provides less than half the effort. 2-Substantial/Maximal Assistance-helper does MORE THAN HALF the effort. [place] lifts or holds trunk or limbs and provides more than half the effort. 5-Qodqoakza-ljthwr does ALL the effort. Patient does none of the effort to complete the activity. Or, the assistance of 2 or more helpers is required for the patient to complete the activity. If activity was not attempted, code reason: 7-Patient Refused. 9-Not Applicable-not attempted and the patient did not perform the activity before the current illness, exacerbation or injury. 10-Not Attempted due to Environmental Limitations-(lack of equipment, weather restraints, etc.). 88-Not Attempted due to Medical Conditions or Safety Concerns. Lower Body Dressing (QC): 2 OT Claims Director Goals Claims Director Goals Time Frame: Dec 26, 2019 Eating (QC): 6 Oral Hygiene (QC): 6 Toileting Hygiene (QC): 3 Shower/Bathe Self (QC): 3 Upper Body Dressing (QC): 6 Lower Body Dressing (QC): 3 On/Off Footwear (QC): 6 Additional Goals: 1-Demonstrate ADL Tasks, 2-Verbalize Understanding, 3-Impr oveStrength/Jay 1=Demonstrate adherence to instructed precautions during ADL tasks. 2=Patient will verbalize/demonstrate understanding of assistive devices/modifications for ADL. 3=Patient will improve strength/tolerance for activity to enable patient to perform ADL's. OT Education/Plan Discharge Recommendations Plan/Recommendations: Continue POC Treatment Plan/Plan of Care Patient would benefit from OT for education, treatment and training to promote independence in ADL's, mobility, safety and/or upper extremity function for ADL's. Plan of Care: ADL Retraining, Caregiver Training, Functional Mobility, Group Exercise/Act as Ind, UE Funct Exercise/Act, W/C Management Training Treatment Duration: Dec 26, 2019 Frequency: 5 times per week Estimated Hrs Per Day: .25 hour per day Agreement: Yes Rehab Potential: Guarded Time/GCodes Start Time: 11:12 Stop Time: 11:28 Total Time Billed (hr/min): 16 Billed Treatment Time 1 visit, ADL(16minutes) Co-treat with PT PAULINE BONILLA OT Dec 20, 2019 12:00
[2019-12-20 15:47] VITALS: BP 126/83
[2019-12-20 20:00] VITALS: BP 138/89
[2019-12-21] VITALS: BP 160/98
[2019-12-21] MEDS: RT-ALBUTEROL/IPRATROPIUM 3 ML (DUONEB) VIAL INH SCH ×5 (02:48→20:20)
[2019-12-21 04:00] VITALS: BP 152/87
[2019-12-21 06:03] LABS: BASOPHILS # (AUTO) 0.1 10^3/uL (0.0-0.1); BASOPHILS % (AUTO) 1 % (0-10); EOSINOPHILS # (AUTO) 0.3 10^3/uL (0.0-0.3); EOSINOPHILS % (AUTO) 3 % (0-10); HEMATOCRIT 37 % (40-54); HEMOGLOBIN 11.3 G/DL (13.3-17.7); LYMPHOCYTES # (AUTO) 1.3 X 10^3 (1.0-4.0); LYMPHOCYTES % (AUTO) 14 % (12-44); MEAN CORPUSCULAR HGB CONC 31 G/DL (32-36); MEAN CORPUSCULAR VOLUME 90 FL (80-99); MEAN PLATELET VOLUME 10.2 FL (7.4-10.4); MONOCYTES # (AUTO) 0.6 X 10^3 (0.0-1.0); MONOCYTES % (AUTO) 7 % (0-12); NEUTROPHILS # (AUTO) 6.8 X 10^3 (1.8-7.8); NEUTROPHILS % (AUTO) 75 % (42-75); PLATELET COUNT 294 10^3/uL (130-400); RED CELL DISTRIBUTION WIDTH 15.4 % (10.0-14.5); WHITE BLOOD COUNT 9.1 10^3/uL (4.3-11.0)
[2019-12-21 06:06] LABS: MEAN CORPUSCULAR HEMOGLOBIN 27 PG (25-34)
[2019-12-21 06:18] LABS: CHLORIDE 106 MMOL/L (98-107); POTASSIUM 3.9 MMOL/L (3.6-5.0); SODIUM 142 MMOL/L (135-145)
[2019-12-21 06:19] LABS: CALCIUM 8.5 MG/DL (8.5-10.1); GLUCOSE 96 MG/DL (70-105)
[2019-12-21 06:21] LABS: CARBON DIOXIDE 26 MMOL/L (21-32)
[2019-12-21 06:23] LABS: CREATININE SERUM 0.67 MG/DL (0.60-1.30); GFR ESTIMATED > 60; PHOSPHORUS 2.7 MG/DL (2.3-4.7)
[2019-12-21 06:24] LABS: BUN/CREATININE RATIO 22
[2019-12-21] MEDS: KCL 20 MEQ TAB (K-DUR) PO SCH ×2 (06:24→06:44)
[2019-12-21] MEDS: inSUlin ASPART (NovoLOG) 1 UNIT/0.01 ML (CHARGE PER UNIT) SC SCH ×4 (06:24→20:52)
[2019-12-21 06:26] LABS: MAGNESIUM 2.1 MG/DL (1.6-2.4)
--- NOTE | 2019-12-21 07:45 | Pulmonary Progress Note ---
Subjective Time Seen by a Provider: 07:43 Subjective/Events-last exam No complications noted. PT is doing better. Sepsis Event Evaluation Height, Weight, BMI Height: 5'11.00" Weight: 358lbs. 1.0oz. 162.844984iy; 39.96 BMI Method: Focused Exam Time of Focused Exam: 02:40 Exam Exam Vital Signs Date Time Temp Pulse Resp B/P (MAP) Pulse Ox O2 Delivery O2 Flow Rate FiO2 12/21/19 04:00 36.0 95 18 152/87 (108) 94 Nasal Cannula 3.00 12/21/19 02:48 85 Nasal Cannula 5.00 12/21/19 01:00 92 12/21/19 00:00 37.0 91 18 160/98 (118) 95 Nasal Cannula 3.00 12/20/19 22:13 91 Nasal Cannula 3.00 12/20/19 20:30 Nasal Cannula 3.00 12/20/19 20:00 36.3 73 20 138/89 (105) 95 Nasal Cannula 3.00 12/20/19 19:00 93 12/20/19 15:47 37.1 92 18 126/83 (97) 96 Nasal Cannula 3.00 12/20/19 15:12 90 Nasal Cannula 3.00 12/20/19 12:42 91 12/20/19 12:00 36.1 85 22 155/85 (108) 97 Nasal Cannula 3.00 12/20/19 08:49 94 Nasal Cannula 3.00 12/20/19 08:00 94 Nasal Cannula 3.00 12/20/19 08:00 36.6 92 20 165/96 (119) 95 Nasal Cannula 3.00 I & O0 12/21/19 07:00 Intake Total 5000 ml Output Total 1500 ml Balance 3500 ml Height & Weight Height: 5'11.00" Weight: 358lbs. 1.0oz. 162.393402an; 39.96 BMI Method: General Appearance: No Apparent Distress, WD/WN, Chronically ill, Obese HEENT: Other (intubated) Respiratory: Lungs Clear Cardiovascular: Regular Rate, Rhythm Capillary Refill: Less Than 3 Seconds Gastrointestinal: soft, no organomegaly, hernia (incarcerated umbilical hernia) Extremity: Pedal Edema Neurologic/Psychiatric: Alert, Oriented x3, No Motor/Sensory Deficits, Normal Mood/Affect Skin: Other (pt still has very severe scrotal edema, not improved at all. May even be slightly red, but no changes. Doubt there is an abscess just edema.) Results Lab Laboratory Tests 12/20/19 05:36 12/21/19 05:51 Assessment/Plan Assessment/Plan Acute respiratory failure -s/p ventilator -pt is doing much better. currnetly on 3 liter NC. Afib s/p cardioversion 12/06 Congestive heart failure with EF of 20% methamphetamine and Marijuana use -Education EP 12/11 -Presented to ICU after EP study intubated DM II VISHNU DE LOS SANTOS DO Dec 21, 2019 07:44
[2019-12-21 08:00] VITALS: BP 197/97
[2019-12-21] MEDS: NICOTINE 21 MG (NICODERM) PATCH TD SCH (09:24)
[2019-12-21] MEDS: MICONAZOLE 2% POWDER (DESENEX AF) 90 GM TOP SCH ×2 (09:24→20:48)
[2019-12-21] MEDS: LOSARTAN 25 MG (COZAAR) TAB PO SCH (09:24)
[2019-12-21] MEDS: FAMOTIDINE 20 MG (PEPCID) TABLET PO SCH ×2 (09:24→20:48)
[2019-12-21] MEDS: CARVEDILOL 3.125 MG (COREG) TABLET PO SCH ×2 (09:24→20:48)
[2019-12-21] MEDS: CLOPIDOGREL 75 MG (PLAVIX) TABLET PO SCH (09:24)
[2019-12-21] MEDS: FUROSEMIDE 40 MG (LASIX) TAB PO SCH (09:24)
[2019-12-21] MEDS: NICOTINE PATCH REMOVAL TP SCH (09:25)
[2019-12-21] MEDS: polyethylene glycoL POWDER 17 GM (MIRALAX) PACK PO SCH (09:25)
--- NOTE | 2019-12-21 10:25 | Progress Note - Hospitalist ---
Subjective HPI/CC On Admission Date Seen by Provider: Dec 21, 2019 Time Seen by Provider: 10:30 Subjective/Events-last exam Patient feels good Had a hot shower and feels much better Less edema noted O2 maintained No pain reported Eating well Catheter maintained Conferred with overlock collar setter of Systems General: Fatigue Cardiovascular: Chest Pain, Edema Focused Exam Time of Focused Exam: 02:40 Objective Exam Vital Signs Vital Signs Date Time Temp Pulse Resp B/P (MAP) Pulse Ox O2 Delivery O2 Flow Rate FiO2 12/21/19 16:00 36.9 110 20 136/82 (100) 93 Nasal Cannula 4.00 12/16/19 20:00 30 Capillary Refill : Less Than 3 SecondsLess Than 3 Seconds General Appearance: No Apparent Distress, WD/WN, Chronically ill, Obese Respiratory: Chest Non Tender, Lungs Clear, Normal Breath Sounds, No Accessory Muscle Use, No Respiratory Distress, Decreased Breath Sounds Cardiovascular: Regular Rate, Rhythm, No Gallop, No JVD, No Murmur, Normal Peripheral Pulses Extremity: Pedal Edema Neurologic/Psychiatric: Alert, Oriented x3, No Motor/Sensory Deficits, Normal Mood/Affect Results/Procedures Lab Laboratory Tests 12/21/19 05:51 Patient resulted labs reviewed. Assessment/Plan Assessment and Plan Assess & Plan/Chief Complaint 12/20/2019 Assessment: Recent VDRF CHF Meth use Edema Plan: Continue IV Diuresis Hopefully insurance will approve rehab Monitor edema Critical Care Critically Ill Patient Diagnosis/Problems Diagnosis/Problems (1) Ventilator dependence (2) Congestive heart failure Qualifiers: Heart failure type: systolic Heart failure chronicity: unspecified Qualified Codes: I50.20 - Unspecified systolic (congestive) heart failure (3) Tachycardia Status: Resolved Resolution Date/Time: 12/16/19 @ 13:24 (4) Pneumonia (5) Methamphetamine abuse (6) Noncompliance Clinical Quality Measures DVT/VTE Risk/Contraindication: Risk Factor Score Per Nursin RFS Level Per Nursing on Admit: 4+=Very High GAYATRI GILL DO Dec 21, 2019 10:25
--- NOTE | 2019-12-21 11:03 | Physical Therapy Daily Note ---
PT Daily Note-Current Subjective Pt reports feeling better today. Transfers SCALE: Activities may be completed with or without assistive devices. 2-Dniejcfagz-vdynrxx completes the activity by him/herself with no assistance from a helper. 5-Set-up or Clean-up Assistance-helper sets up or cleans up; patient completes activity. Taylor assists only prior to or following the activity. 4-Supervision or Touching Assistance-helper provides verbal cues and/or touching/steadying and/or contact guard assistance as patient completes activity. Assistance may be provided throughout the activity or intermittently. 3-Partial/Moderate Assistance-helper does LESS THAN HALF the effort. Taylor li fts, holds or supports trunk or limbs, but provides less than half the effort. 2-Substantial/Maximal Assistance-helper does MORE THAN HALF the effort. Taylor lifts or holds trunk or limbs and provides more than half the effort. 1-Zpbxhomvh-vjcjtu does ALL the effort. Patient does none of the effort to complete the activity. Or, the assistance of 2 or more helpers is required for the patient to complete the activity. If activity was not attempted, code reason: 7-Patient Refused. 9-Not Applicable-not attempted and the patient did not perform the activity before the current illness, exacerbation or injury. 10-Not Attempted due to Environmental Limitations-(lack of equipment, weather restraints, etc.). 88-Not Attempted due to Medical Conditions or Safety Concerns. Roll Left & Right (QC): 3 Sit to Lying (QC): 3 Lying to Sitting/Side of Bed(Q: 3 Sit to Stand (QC): 3 Chair/Jqq-fx-Bddgu Xfer(QC): 3 Assisted up to side of bed and onto tub bench for shower. Stood patient in shower to assist nursing. Weight Bearing Right Lower Extremity: Right Weight Bearing/Tolerated Left Lower Extremity: Left Weight Bearing/Tolerated Gait Training Walk 10 feet (QC): 3 Gait Assistive Device: FWW Ambulate 10 ft with FWW followed by W/C with Moderate physical assist. Stood by 3 trials with Min to Mod Assist while nursing performed dressing changes. PT Short Term Goals Short Term Goals Time Frame: Dec 19, 2019 PT Straight Line Edger Goals [facility] Goals PT Straight Line Edger Goals Time Frame: Dec 25, 2019 Roll Left & Right (QC): 3 Sit to Lying (QC): 3 Lying-Sitting on Side/Bed(QC): 3 Sit to Stand (QC): 4 Chair/Fyt-cs-Qljmi Xfer(QC): 4 Walk 10 feet (QC): 4 PT Plan Treatment/Plan Treatment Plan: Continue Plan of Care Treatment Plan: Bed Mobility, Education, Functional Activity Jay, Functional Strength, Gait, Safety, Therapeutic Exercise, Transfers Treatment Duration: Dec 25, 2019 Frequency: 6 times per week Estimated Hrs Per Day: .25 hour per day Patient and/or Family Agrees t: Yes Time/GCodes Time In: 915 Time Out: 930 Total Billed Treatment Time: 15 Total Billed Treatment visit, FA x 15 min LIVIA HERNANDEZ PT Dec 21, 2019 11:03
[2019-12-21 12:00] VITALS: BP 185/87
--- NOTE | 2019-12-21 13:51 | NUR ---
CALLED WITH CONCERN ABOUT PT HAVING TROUBLE CATCHING BREATH. SAT PT UP IN BED AND WENT THROUGH PROPER BREATHING TECHNIQUE WITH HIM. HIS BREATHING IS EASIER. RESPIRATORY CAME AND GAVE A TREATMENT. PT IS RESTING NOW MORE COMFORTABLY. O2 STATS 93/94 ON 3 L
--- NOTE | 2019-12-21 14:00 | NUR ---
ASKED ME TO MAKE CARDIIOLGY AWARE. DR. ROQUE NOTIFIED
--- NOTE | 2019-12-21 14:48 | Cardiology Progress Note ---
Cardiology SOAP Progress Note Subjective: Mild shortness of breath. Objective: I&O/Vital Signs 12/21/19 12/21/19 12/21/19 12/21/19 02:48 04:00 07:00 07:44 Temp 36.0 Pulse 95 97 Resp 18 B/P (MAP) 152/87 (108) Pulse Ox 85 94 93 O2 Delivery Nasal Cannula Nasal Cannula Nasal Cannula O2 Flow Rate 5.00 3.00 3.00 12/21/19 12/21/19 12/21/19 12/21/19 08:00 08:55 12:00 12:52 Temp 36.1 36.5 Pulse 102 76 94 Resp 20 20 B/P (MAP) 197/97 (130) 185/87 (119) Pulse Ox 93 93 93 O2 Delivery Nasal Cannula Nasal Cannula Nasal Cannula O2 Flow Rate 3.00 7.00 3.00 12/21/19 13:36 Pulse Ox 100 O2 Delivery Nasal Cannula O2 Flow Rate 7.00 12/21/19 00:00 Intake Total 3200 ml Output Total 950 ml Balance 2250 ml Weight (Pounds): 358 Weight (Ounces): 1.0 Weight (Calculated Kilograms): 162.424318 Constitutional: AAO x 3 Respiratory: chest is bilaterally symmetric, lungs clear to auscultation Cardiovascular: regular rate-rhythm, S1 and S2 Gastrointestional: distended, audible bowel sounds Genital/Rectal: other (large scrotal edema and penile edema, cannot even see penis (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 Testicles are very tender to palpation but cannot see any erythema or obvious signs of infection) Extremities: normal inspection, pedal edema Neurologic/Psychiatric: no motor/sensory deficits, alert, normal mood/affect, oriented x 3 Skin: normal color, warm/dry Results/Procedures: Labs Laboratory Tests 12/20/19 15:29: Glucometer 114H 12/20/19 20:40: Glucometer 110 12/21/19 05:42: Glucometer 125H 12/21/19 05:51: White Blood Count 9.1, Red Blood Count 4.11L, Hemoglobin 11.3L, Hematocrit 37L, Mean Corpuscular Volume 90, Mean Corpuscular Hemoglobin 27, Mean Corpuscular Hemoglobin Concent 31L, Red Cell Distribution Width 15.4H, Platelet Count 294, Mean Platelet Volume 10.2, Neutrophils (%) (Auto) 75, Lymphocytes (%) (Auto) 14, Monocytes (%) (Auto) 7, Eosinophils (%) (Auto) 3, Basophils (%) (Auto) 1, Neutrophils # (Auto) 6.8, Lymphocytes # (Auto) 1.3, Monocytes # (Auto) 0.6, Eosinophils # (Auto) 0.3, Basophils # (Auto) 0.1, Sodium Level 142, Potassium Level 3.9, Chloride Level 106, Carbon Dioxide Level 26, Anion Gap 10, Blood Urea Nitrogen 15, Creatinine 0.67, Estimat Glomerular Filtration Rate > 60, BUN/Creatinine Ratio 22, Glucose Level 96, Calcium Level 8.5, Phosphorus Level 2.7, Magnesium Level 2.1 12/21/19 11:13: Glucometer 125H Microbiology 12/12/19 Gram Stain - Final, Complete 12/12/19 Sputum Culture - Final, Complete Usual upper respiratory мария YEAST 12/06/19 Blood Culture - Final, Complete No growth 12/06/19 Urine Culture - Final, Complete NO GROWTH A/P: Assessment/Dx: Scrotal cellulitis, abscess, Meth abuse, Active smoker, Cardiomyopathy of unknown origin, Recent stroke, status post thrombolytics. Positive cardiac enzymes. DM, HTN, Hyperlipidemia, RBBB, LAFB, LVH on EKG. Typical atrial flutter. Plan: Status post acute respiratory failure, doing better at this time, on nasal cannula, still having some wheezing. Continue with bronchodilators. Coronary angiogram done on December 12, 2019 showing mild coronary artery disease nonobstructive disease Congestive heart failure, acute on chronic left ventricular systolic dysfunction, ejection fraction 20 percent, nonischemic cardiomyopathy, started on Coreg and losartan and tolerating it well. Continue with diuretics Hypernatremia, I will restart Lasix and monitor Hematuria, secondary to aggressive anticoagulation. Continue to monitor H&H Scrotal swelling and cellulitis, defer to the primary team. Treatment with IV antibiotics. Meth abuse, strongly recommended to quit. Atrial flutter with 2-1 AV block. Refractory to medical therapy with IV Cardizem. Patient is on Eliquis. Cardioversion was performed with anesthesia support on 12/07/2019. Underwent ablation on December 12, 2019, currently in sinus rhythm Recent Acute stroke, status post thrombolytics, resolution. Will require rehab ilitation. Tobaccoism, smoking cessation was strongly recommended. DM, defer to the primary team. HTN, continue to monitor blood pressure Hyperlipidemia, high-dose Lipitor therapy. RBBB, left anterior fascicular block. Continue to monitor Noncompliance with medication, educated in length about compliance with medicine Thank you for your consultation. Please call me if you have any questions. Monika Storm MD, FACP, FACC, FSCAI, FHRS, CCDS Interventional Cardiology Cardiac Electrophysiology Vascular Medicine and Endovascular Interventions Focused Exam Time of Focused Exam: 02:40 Calvin STORM MD Dec 21, 2019 14:48
[2019-12-21 16:00] VITALS: BP 136/82
[2019-12-21 20:00] VITALS: BP 153/95
[2019-12-22] VITALS: BP 143/87
[2019-12-22] MEDS: RT-ALBUTEROL/IPRATROPIUM 3 ML (DUONEB) VIAL INH SCH ×4 (02:10→19:56)
[2019-12-22 04:05] VITALS: BP 140/90
[2019-12-22] MEDS: KCL 20 MEQ TAB (K-DUR) PO SCH ×2 (05:50→08:00)
[2019-12-22] MEDS: inSUlin ASPART (NovoLOG) 1 UNIT/0.01 ML (CHARGE PER UNIT) SC SCH ×4 (05:50→21:22)
[2019-12-22 07:34] LABS: BASOPHILS # (AUTO) 0.1 10^3/uL (0.0-0.1); BASOPHILS % (AUTO) 1 % (0-10); EOSINOPHILS # (AUTO) 0.2 10^3/uL (0.0-0.3); EOSINOPHILS % (AUTO) 2 % (0-10); HEMATOCRIT 38 % (40-54); HEMOGLOBIN 11.6 G/DL (13.3-17.7); LYMPHOCYTES % (AUTO) 12 % (12-44); MEAN CORPUSCULAR HEMOGLOBIN 27 PG (25-34); MEAN CORPUSCULAR HGB CONC 30 G/DL (32-36); MEAN CORPUSCULAR VOLUME 90 FL (80-99); MEAN PLATELET VOLUME 10.3 FL (7.4-10.4); MONOCYTES # (AUTO) 0.6 X 10^3 (0.0-1.0); MONOCYTES % (AUTO) 8 % (0-12); NEUTROPHILS # (AUTO) 6.6 X 10^3 (1.8-7.8); NEUTROPHILS % (AUTO) 77 % (42-75); PLATELET COUNT 324 10^3/uL (130-400); RED CELL DISTRIBUTION WIDTH 15.2 % (10.0-14.5); WHITE BLOOD COUNT 8.5 10^3/uL (4.3-11.0)
[2019-12-22 07:40] LABS: CHLORIDE 104 MMOL/L (98-107); POTASSIUM 4.3 MMOL/L (3.6-5.0)
[2019-12-22 07:41] LABS: SODIUM 141 MMOL/L (135-145)
[2019-12-22 07:42] LABS: CALCIUM 8.8 MG/DL (8.5-10.1); GLUCOSE 134 MG/DL (70-105)
[2019-12-22 07:44] LABS: CARBON DIOXIDE 28 MMOL/L (21-32)
[2019-12-22 07:46] LABS: CREATININE SERUM 0.69 MG/DL (0.60-1.30); GFR ESTIMATED > 60; PHOSPHORUS 2.7 MG/DL (2.3-4.7)
[2019-12-22 07:47] LABS: BUN/CREATININE RATIO 22
[2019-12-22 08:00] VITALS: BP 181/77
[2019-12-22] MEDS: FUROSEMIDE 40 MG (LASIX) TAB PO SCH (09:00)
[2019-12-22] MEDS: NICOTINE 21 MG (NICODERM) PATCH TD SCH (09:00)
[2019-12-22] MEDS: CLOPIDOGREL 75 MG (PLAVIX) TABLET PO SCH (09:00)
[2019-12-22] MEDS: CARVEDILOL 3.125 MG (COREG) TABLET PO SCH ×2 (09:00→21:23)
[2019-12-22] MEDS: polyethylene glycoL POWDER 17 GM (MIRALAX) PACK PO SCH (09:00)
[2019-12-22] MEDS: MICONAZOLE 2% POWDER (DESENEX AF) 90 GM TOP SCH ×2 (09:01→21:23)
[2019-12-22] MEDS: LOSARTAN 25 MG (COZAAR) TAB PO SCH (09:01)
[2019-12-22] MEDS: FAMOTIDINE 20 MG (PEPCID) TABLET PO SCH ×2 (09:01→21:23)
[2019-12-22] MEDS: NICOTINE PATCH REMOVAL TP SCH (09:02)
--- NOTE | 2019-12-22 10:51 | Progress Note - Hospitalist ---
Subjective HPI/CC On Admission Date Seen by Provider: Dec 22, 2019 Time Seen by Provider: 10:00 Subjective/Events-last exam Patient feels better Had a coughing episode yesterday but now no dyspnea Still requiring high ramez oxygen BM+ Will DC catheter Checked meds and labs IRF pending Feels really good Review of Systems General: Fatigue Pulmonary: Dyspnea, Cough Neurological: Weakness Focused Exam Time of Focused Exam: 02:40 Objective Exam Vital Signs Vital Signs Date Time Temp Pulse Resp B/P (MAP) Pulse Ox O2 Delivery O2 Flow Rate FiO2 12/22/19 16:00 36.5 90 20 152/86 (108) 96 Nasal Cannula 6.00 12/16/19 20:00 30 Capillary Refill : Less Than 3 SecondsLess Than 3 Seconds General Appearance: No Apparent Distress, WD/WN, Anxious, Chronically ill, Obese Respiratory: Chest Non Tender, Lungs Clear, Normal Breath Sounds, No Accessory Muscle Use, No Respiratory Distress, Decreased Breath Sounds Cardiovascular: Regular Rate, Rhythm, No Gallop, No JVD, No Murmur, Normal Peripheral Pulses Extremity: Pedal Edema Neurologic/Psychiatric: Alert, Oriented x3, No Motor/Sensory Deficits, Normal Mood/Affect Results/Procedures Lab Laboratory Tests 12/22/19 06:58 Patient resulted labs reviewed. Assessment/Plan Assessment and Plan Assess & Plan/Chief Complaint Assessment: Recent VDRF CHF Meth use Edema Plan: Continue IV Diuresis Hopefully insurance will approve rehab Monitor edema DC catheter Critical Care Critically Ill Patient Diagnosis/Problems Diagnosis/Problems (1) Ventilator dependence (2) Congestive heart failure Qualifiers: Heart failure type: systolic Heart failure chronicity: unspecified Qu alified Codes: I50.20 - Unspecified systolic (congestive) heart failure (3) Tachycardia Status: Resolved Resolution Date/Time: 12/16/19 @ 13:24 (4) Pneumonia (5) Methamphetamine abuse (6) Noncompliance Clinical Quality Measures DVT/VTE Risk/Contraindication: Risk Factor Score Per Nursin RFS Level Per Nursing on Admit: 4+=Very High GAYATRI GILL DO Dec 22, 2019 10:51
[2019-12-22 12:00] VITALS: BP 138/95
--- NOTE | 2019-12-22 15:13 | Cardiology Progress Note ---
Cardiology SOAP Progress Note Subjective: Mild shortness of breath. Getting respiratory treatment when I saw the patient. Objective: I&O/Vital Signs 12/22/19 12/22/19 12/22/19 12/22/19 04:05 07:00 07:33 08:00 Temp 37.0 37.0 Pulse 89 93 92 Resp 16 20 B/P (MAP) 140/90 (107) 181/77 (111) Pulse Ox 93 88 93 O2 Delivery NIV Bilevel Nasal Cannula Nasal Cannula O2 Flow Rate 6.00 6.00 12/22/19 12/22/19 12/22/19 12/22/19 08:00 12:00 13:00 14:35 Temp 36.1 Pulse 89 90 Resp 20 B/P (MAP) 138/95 (109) Pulse Ox 93 93 93 O2 Delivery Nasal Cannula Nasal Cannula Nasal Cannula O2 Flow Rate 7.00 6.00 6.00 12/22/19 00:00 Intake Total 1700 ml Output Total 2025 ml Balance -325 ml Weight (Pounds): 358 Weight (Ounces): 1.0 Weight (Calculated Kilograms): 162.934999 Constitutional: AAO x 3 Respiratory: chest is bilaterally symmetric, lungs clear to auscultation Cardiovascular: regular rate-rhythm, S1 and S2 Gastrointestional: distended, audible bowel sounds Genital/Rectal: other (large scrotal edema and penile edema, cannot even see penis (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 Testicles are very tender to palpation but cannot see any erythema or obvious signs of infection) Extremities: normal inspection, pedal edema Neurologic/Psychiatric: no motor/sensory deficits, alert, normal mood/affect, oriented x 3 Skin: normal color, warm/dry Results/Procedures: Labs Laboratory Tests 12/21/19 15:42: Glucometer 182H 12/21/19 20:41: Glucometer 145H 12/22/19 05:48: Glucometer 128H 12/22/19 06:58: White Blood Count 8.5, Red Blood Count 4.25L, Hemoglobin 11.6L, Hematocrit 38L, Mean Corpuscular Volume 90, Mean Corpuscular Hemoglobin 27, Mean Corpuscular Hemoglobin Concent 30L, Red Cell Distribution Width 15.2H, Platelet Count 324, Mean Platelet Volume 10.3, Neutrophils (%) (Auto) 77H, Lymphocytes (%) (Auto) 12, Monocytes (%) (Auto) 8, Eosinophils (%) (Auto) 2, Basophils (%) (Auto) 1, Neutrophils # (Auto) 6.6, Lymphocytes # (Auto) 1.0, Monocytes # (Auto) 0.6, Eosinophils # (Auto) 0.2, Basophils # (Auto) 0.1, Sodium Level 141, Potassium Level 4.3, Chloride Level 104, Carbon Dioxide Level 28, Anion Gap 9, Blood Urea Nitrogen 15, Creatinine 0.69, Estimat Glomerular Filtration Rate > 60, BUN/Creatinine Ratio 22, Glucose Level 134H, Calcium Level 8.8, Phosphorus Level 2.7, Magnesium Level 2.0 12/22/19 11:32: Glucometer 211H Microbiology 12/12/19 Gram Stain - Final, Complete 12/12/19 Sputum Culture - Final, Complete Usual upper respiratory мария YEAST 12/06/19 Blood Culture - Final, Complete No growth 12/06/19 Urine Culture - Final, Complete NO GROWTH A/P: Assessment/Dx: Scrotal cellulitis, abscess, Meth abuse, Active smoker, Cardiomyopathy of unknown origin, Recent stroke, status post thrombolytics. Positive cardiac enzymes. DM, HTN, Hyperlipidemia, RBBB, LAFB, LVH on EKG. Typical atrial flutter. Plan: Status post acute respiratory failure, doing better at this time, on nasal cannula, still having some wheezing. Continue with bronchodilators. Coronary angiogram done on December 12, 2019 showing mild coronary artery disease nonobstructive disease Congestive heart failure, acute on chronic left ventricular systolic dysfunction, ejection fraction 20 percent, nonischemic cardiomyopathy, started on Coreg and losartan and tolerating it well. Continue with diuretics Hypernatremia, I will restart Lasix and monitor Hematuria, secondary to aggressive anticoagulation. Continue to monitor H&H Scrotal swelling and cellulitis, defer to the primary team. Treatment with IV antibiotics. Meth abuse, strongly recommended to quit. Atrial flutter with 2-1 AV block. Refractory to medical therapy with IV Cardizem. Patient is on Eliquis. Cardioversion was performed with anesthesia support on 12/07/2019. Underwent ablation on December 12, 2019, currently in sinus rhythm Recent Acute stroke, status post thrombolytics, resolution. Will require rehabilitation. Tobaccoism, smoking cessation was strongly recommended. DM, defer to the primary team. HTN, continue to monitor blood pressure Hyperlipidemia, high-dose Lipitor therapy. RBBB, left anterior fascicular block. Continue to monitor Noncompliance with medication, educated in length about compliance with medicine Thank you for your consultation. Please call me if you have any questions. Monika Storm MD, FACP, FACC, FSCAI, FHRS, CCDS Interventional Cardiology Cardiac Electrophysiology Vascular Medicine and Endovascular Interventions Focused Exam Time of Focused Exam: 02:40 Calvin TSORM MD Dec 22, 2019 15:13
[2019-12-22 16:00] VITALS: BP 152/86
[2019-12-22 20:00] VITALS: BP 141/86
[2019-12-22] MEDS: APIXABAN 5 MG (ELIQUIS) TABLET PO SCH (21:23)
[2019-12-23 00:02] VITALS: BP 148/81
[2019-12-23] MEDS: RT-ALBUTEROL/IPRATROPIUM 3 ML (DUONEB) VIAL INH SCH ×4 (03:12→21:34)
[2019-12-23 04:57] VITALS: BP 149/93
[2019-12-23] MEDS: inSUlin ASPART (NovoLOG) 1 UNIT/0.01 ML (CHARGE PER UNIT) SC SCH ×5 (05:32→21:05)
[2019-12-23 05:44] LABS: BASOPHILS # (AUTO) 0.1 10^3/uL (0.0-0.1); BASOPHILS % (AUTO) 1 % (0-10); EOSINOPHILS # (AUTO) 0.2 10^3/uL (0.0-0.3); EOSINOPHILS % (AUTO) 2 % (0-10); HEMATOCRIT 37 % (40-54); HEMOGLOBIN 11.1 G/DL (13.3-17.7); LYMPHOCYTES # (AUTO) 0.9 X 10^3 (1.0-4.0); LYMPHOCYTES % (AUTO) 12 % (12-44); MEAN CORPUSCULAR HEMOGLOBIN 27 PG (25-34); MEAN CORPUSCULAR HGB CONC 30 G/DL (32-36); MEAN CORPUSCULAR VOLUME 90 FL (80-99); MEAN PLATELET VOLUME 10.1 FL (7.4-10.4); MONOCYTES # (AUTO) 0.7 X 10^3 (0.0-1.0); MONOCYTES % (AUTO) 8 % (0-12); NEUTROPHILS % (AUTO) 77 % (42-75); PLATELET COUNT 362 10^3/uL (130-400); RED CELL DISTRIBUTION WIDTH 15.6 % (10.0-14.5); WHITE BLOOD COUNT 7.9 10^3/uL (4.3-11.0)
[2019-12-23 05:55] LABS: CHLORIDE 103 MMOL/L (98-107); POTASSIUM 4.1 MMOL/L (3.6-5.0); SODIUM 142 MMOL/L (135-145)
[2019-12-23 05:56] LABS: CALCIUM 8.6 MG/DL (8.5-10.1)
[2019-12-23 05:57] LABS: GLUCOSE 134 MG/DL (70-105)
[2019-12-23 05:58] LABS: CARBON DIOXIDE 29 MMOL/L (21-32)
[2019-12-23 06:00] LABS: PHOSPHORUS 3.4 MG/DL (2.3-4.7)
[2019-12-23 06:01] LABS: GFR ESTIMATED > 60
[2019-12-23 06:02] LABS: BUN/CREATININE RATIO 24
[2019-12-23] MEDS: KCL 20 MEQ TAB (K-DUR) PO SCH ×2 (06:16→06:26)
[2019-12-23 08:00] VITALS: BP 144/91
--- NOTE | 2019-12-23 08:06 | Pulmonary Progress Note ---
Subjective Time Seen by a Provider: 08:01 Sepsis Event Evaluation Height, Weight, BMI Height: 5'11.00" Weight: 358lbs. 1.0oz. 162.018315rw; 39.96 BMI Method: Focused Exam Time of Focused Exam: 02:40 Exam Exam Vital Signs Date Time Temp Pulse Resp B/P (MAP) Pulse Ox O2 Delivery O2 Flow Rate FiO2 12/23/19 07:49 92 Nasal Cannula 7.00 12/23/19 04:57 37.0 95 20 149/93 (111) 92 Nasal Cannula 6.00 12/23/19 03:12 92 Nasal Cannula 7.00 12/23/19 01:00 87 12/23/19 00:02 36.2 84 18 148/81 (103) 95 Nasal Cannula 6.00 12/22/19 22:00 88 20 95 40.00 12/22/19 20:00 36.8 93 18 141/86 (104) 95 Nasal Cannula 6.00 12/22/19 19:59 90 Nasal Cannula 6.00 12/22/19 19:30 Nasal Cannula 6.00 12/22/19 19:00 92 12/22/19 16:00 36.5 90 20 152/86 (108) 96 Nasal Cannula 6.00 12/22/19 14:35 93 Nasal Cannula 6.00 12/22/19 13:00 90 12/22/19 12:00 36.1 89 20 138/95 (109) 93 Nasal Cannula 6.00 I & O 12/23/19 07:00 Intake Total 1630 ml Output Total 300 ml Balance 1330 ml Height & Weight Height: 5'11.00" Weight: 358lbs. 1.0oz. 162.997437hc; 39.96 BMI Method: General Appearance: No Apparent Distress, WD/WN, Anxious, Chronically ill, Obese HEENT: Other (intubated) Respiratory: Chest Non Tender, Lungs Clear, Normal Breath Sounds, No Accessory Muscle Use, No Respiratory Distress, Decreased Breath Sounds Cardiovascular: Regular Rate, Rhythm, No Gallop, No JVD, No Murmur, Normal Peripheral Pulses Capillary Refill: Less Than 3 Seconds Gastrointestinal: soft, no organomegaly, hernia (incarcerated umbilical hernia) Extremity: Pedal Edema Neurologic/Psychiatric: Alert, Oriented x3, No Motor/Sensory Deficits, Normal Mood/Affect Skin: Other (pt still has very severe scrotal edema, not improved at all. May even be slightly red, but no changes. Doubt there is an abscess just edema.) Results Lab Laboratory Tests 12/22/19 06:58 12/23/19 05:19 Assessment/Plan Assessment/Plan pulmonary edema with hypoxia -Repeat CXR and BNP -Continue Lasix -Pt is currenlty requiring 7 liters of oxygen -Check ABG Afib s/p cardioversion 12/06 Congestive heart failure with EF of 20% methamphetamine and Marijuana use -Education EP 12/11 -Presented to ICU after EP study intubated DM II VISHNU DE LOS SANTOS DO Dec 23, 2019 08:06
[2019-12-23 08:53] LABS: ABG BASE EXCESS 6.6 MMOL/L (-2.5-2.5); ABG OXYGEN SATURATION 64 % (94-100); ABG PCO2 51 MMHG (35-45); ABG PH 7.41 (7.37-7.43); ABG TCO2 32.8 MMOL/L (21.0-31.0)
[2019-12-23 08:59] LABS: ABG PO2 39 MMHG (79-93); ALLENS TEST YES-POS; INSPIRED O2 40%; VENTILATOR NO
[2019-12-23] MEDS: NICOTINE PATCH REMOVAL TP SCH (09:24)
[2019-12-23] MEDS: CLOPIDOGREL 75 MG (PLAVIX) TABLET PO SCH (09:25)
[2019-12-23] MEDS: MICONAZOLE 2% POWDER (DESENEX AF) 90 GM TOP SCH ×2 (09:25→21:04)
[2019-12-23] MEDS: APIXABAN 5 MG (ELIQUIS) TABLET PO SCH ×2 (09:25→21:04)
[2019-12-23] MEDS: polyethylene glycoL POWDER 17 GM (MIRALAX) PACK PO SCH (09:25)
[2019-12-23] MEDS: LOSARTAN 25 MG (COZAAR) TAB PO SCH (09:25)
[2019-12-23] MEDS: FAMOTIDINE 20 MG (PEPCID) TABLET PO SCH ×2 (09:25→21:04)
[2019-12-23] MEDS: CARVEDILOL 3.125 MG (COREG) TABLET PO SCH ×2 (09:25→21:04)
[2019-12-23] MEDS: NICOTINE 21 MG (NICODERM) PATCH TD SCH (09:25)
[2019-12-23] MEDS: FUROSEMIDE 40 MG (LASIX) TAB PO SCH (09:25)
--- NOTE | 2019-12-23 10:29 | Progress Note - Hospitalist ---
Subjective HPI/CC On Admission Date Seen by Provider: Dec 23, 2019 Time Seen by Provider: 09:30 Subjective/Events-last exam Pt doing pretty well ABG still abnormal Elevated BNP noted for increased fluid overload and CHF Overall he is doing very well Working with PT and OT Lower extremity edema is improved Voiding well since catheter DC yesterday Review of Systems Pulmonary: Dyspnea Cardiovascular: Edema Focused Exam Time of Focused Exam: 02:40 Objective Exam Vital Signs Vital Signs Date Time Temp Pulse Resp B/P (MAP) Pulse Ox O2 Delivery O2 Flow Rate FiO2 12/23/19 20:00 36.7 94 22 131/77 (95) 100 Nasal Cannula 6.00 Capillary Refill : Less Than 3 SecondsLess Than 3 Seconds General Appearance: No Apparent Distress, WD/WN, Chronically ill, Obese Respiratory: No Accessory Muscle Use, No Respiratory Distress, Decreased Breath Sounds Extremity: Pedal Edema Results/Procedures Lab Laboratory Tests 12/23/19 05:19 Patient resulted labs reviewed. Assessment/Plan Assessment and Plan Assess & Plan/Chief Complaint Assessment: Recent VDRF CHF Meth use Edema Plan: Continue IV Diuresis Hopefully insurance will approve rehab Monitor edema DC catheter Critical Care Critically Ill Patient Diagnosis/Problems Diagnosis/Problems (1) Ventilator dependence (2) Congestive heart failure Qualifiers: Heart failure type: systolic Heart failure chronicity: unspecified Qualified Codes: I50.20 - Unspecified systolic (congestive) heart failure (3) Tachycardia Status: Resolved Resolution Date/Time: 12/16/19 @ 13:24 (4) Pneumonia (5) Methamphetamine abuse (6) Noncompliance Clinical Quality Measures DVT/VTE Risk/Contraindication: Risk Factor Score Per Nursin RFS Level Per Nursing on Admit: 4+=Very High GAYATRI GILL DO Dec 23, 2019 10:29
--- NOTE | 2019-12-23 11:33 | Physical Therapy Daily Note ---
PT Daily Note-Current Subjective He reports he is feeling much better. Agrees to PT. Pain Numeric Pain Scale: 0-No Pain Location: No Pain Reported Mental Status Patient Orientation: Normal For Age Attachments: Oxygen (8L O2) Transfers SCALE: Activities may be completed with or without assistive devices. 6-Zpkyhdckpm-elczcfd completes the activity by him/herself with no assistance from a helper. 5-Set-up or Clean-up Assistance-helper sets up or cleans up; patient completes activity. [place] assists only prior to or following the activity. 4-Supervision or Touching Assistance-helper provides verbal cues and/or touching/steadying and/or contact guard assistance as patient completes activi ty. Assistance may be provided throughout the activity or intermittently. 3-Partial/Moderate Assistance-helper does LESS THAN HALF the effort. [place] lifts, holds or supports trunk or limbs, but provides less than half the effort. 2-Substantial/Maximal Assistance-helper does MORE THAN HALF the effort. [place] lifts or holds trunk or limbs and provides more than half the effort. 5-Nnvoypwwj-mfvgwb does ALL the effort. Patient does none of the effort to complete the activity. Or, the assistance of 2 or more helpers is required for the patient to complete the activity. If activity was not attempted, code reason: 7-Patient Refused. 9-Not Applicable-not attempted and the patient did not perform the activity before the current illness, exacerbation or injury. 10-Not Attempted due to Environmental Limitations-(lack of equipment, weather restraints, etc.). 88-Not Attempted due to Medical Conditions or Safety Concerns. Roll Left & Right (QC): 6 Sit to Lying (QC): 6 Lying to Sitting/Side of Bed(Q: 6 Sit to Stand (QC): 6 Weight Bearing Right Lower Extremity: Right Weight Bearing/Tolerated Left Lower Extremity: Left Weight Bearing/Tolerated Gait Training Does the Patient Walk?: Yes Distance: 400' Walk 10 feet (QC): 5 Walk 50 ft with 2 Turns(QC): 5 Walk 150 ft (QC): 5 Gait Assistive Device: FWW safe and functional gait sequence with increase c/o SOA with exertion Exercises Supine Ex: Ankle pumps, Quad Set, Heel Slides Supine Reps: 12 Seated Therapy Exercises: Long arc quads Seated Reps: 15 Assessment Patient tolerated treatment well. Noted increase SOA with SAO2 maintaining >90% on 8L O2 NC. PT to increase activity as tolerated by patient. PT Short Term Goals Short Term Goals Time Frame: Dec 19, 2019 PT Maori Liaison Adviser Goals Fpc Goals PT Maori Liaison Adviser Goals Time Frame: Dec 25, 2019 Roll Left & Right (QC): 3 Sit to Lying (QC): 3 Lying-Sitting on Side/Bed(QC): 3 Sit to Stand (QC): 4 Chair/Iad-kq-Eblvv Xfer(QC): 4 Walk 10 feet (QC): 4 PT Plan Treatment/Plan Treatment Plan: Continue Plan of Care Treatment Plan: Bed Mobility, Education, Functional Activity Jay, Functional Strength, Gait, Safety, Therapeutic Exercise, Transfers Treatment Duration: Dec 25, 2019 Frequency: 6 times per week Estimated Hrs Per Day: .25 hour per day Patient and/or Family Agrees t: Yes Time/GCodes Time In: 1035 Time Out: 1058 Total Billed Treatment Time: 23 Total Billed Treatment 1 visit FA 14 min EX 9 min TALON CANELA PT Dec 23, 2019 11:33
[2019-12-23 12:00] VITALS: BP 153/98
--- NOTE | 2019-12-23 12:20 | Diagnostic Imaging Report ---
INDICATION: Hypoxia. COMPARISON: 12/17/2019. FINDINGS: Single frontal radiographic view of the chest was obtained and again demonstrates moderate cardiomegaly and mild pulmonary vascular congestion. There is also mild diffuse prominence of the interstitium. Bilateral pleural effusions are identified, moderate on the right and mild on the left. There is also associated airspace disease. Effusions and airspace disease have progressed compared to prior exam. There is no pneumothorax. Osseous structures show no acute abnormalities. IMPRESSION: 1. Cardiomegaly with sequela of CHF including probable interstitial pulmonary edema and bilateral pleural effusions with associated airspace disease. Again, bilateral effusions and associated airspace disease have progressed when compared to prior exam. Dictated by: Dictated on workstation # [id number]
--- NOTE | 2019-12-23 13:47 | NUR ---
CM/SS follow up. CM/SS following physical therapy notes that states patient is now scoring 5 and 6's compared to Monday of 3's. CM/SS spoke with the patients aide to verify this. She stated that he is doing very well and was able to go to the bathroom x2 by himself. The patient reported that he is feeling much better today but is worn out after therapy and was concerned about his oxygen. CM/SS left a message for Physical Therapist Kary to see best recommendations. The patient states that at home he does not wear oxygen; however, the patient is requiring 8L of oxygen currently. CM/SS will follow for oxygen study. CM/SS will continue to follow to see if patient still qualifies for inpatient rehab.
--- NOTE | 2019-12-23 14:22 | Occupational Ther Daily Note ---
OT Current Status-Daily Note Subjective Pt. does not report pain but states, "I'm out of gas" with any movement. Appearance Pt. up on side of bed. Agrees to work with OT. Mental Status/Objective Patient Orientation: Person, Place, Time, Situation Attachments: Oxygen ADL-Treatment Therapy Code Descriptions/Definitions Functional [place] Measure: 0=Not Assessed/NA 4=Minimal Assistance 1=Total Assistance 5=Supervision or Setup 2=Maximal Assistance 6=Modified [place] 3=Moderate Assistance 7=Complete IndependenceSCALE: Activities may be completed with or without assistive devices. 1-Oqscmeidnm-ebjjlwb completes the activity by him/herself with no assistance f rom a helper. 5-Set-up or Clean-up Assistance-helper sets up or cleans up; patient completes activity. [place] assists only prior to or following the activity. 4-Supervision or Touching Assistance-helper provides verbal cues and/or touching/steadying and/or contact guard assistance as patient completes activity. Assistance may be provided throughout the activity or intermittently. 3-Partial/Moderate Assistance-helper does LESS THAN HALF the effort. [place] lifts, holds or supports trunk or limbs, but provides less than half the effort. 2-Substantial/Maximal Assistance-helper does MORE THAN HALF the effort. [place] lifts or holds trunk or limbs and provides more than half the effort. 8-Sevmqpoje-wyeewm does ALL the effort. Patient does none of the effort to complete the activity. Or, the assistance of 2 or more helpers is required for the patient to complete the activity. If activity was not attempted, code reason: 7-Patient Refused. 9-Not Applicable-not attempted and the patient did not perform the activity before the current illness, exacerbation or injury. 10-Not Attempted due to Environmental Limitations-(lack of equipment, weather restraints, etc.). 88-Not Attempted due to Medical Conditions or Safety Concerns. On/Off Footwear: 3 (Mod assist overall with slipper socks.) Other Treatment Pt. sitting on side of bed. Pt. on and reports that he feels "out of gas" with movement. Pt. given multiple rest breaks. Pt. agrees to attempt footwear. Pt. able to bring right foot up to him while seated, with much effort. Pt. able to doff/don slipper sock with increased time. Pt. rested and then attempted to doff left sock. Pt. unable to bring foot up to him. OT did this for him. Pt. reports that he is concerned about going home, as his spouse is disabled. Pt. reports that his spouse's kids are her caregivers. Pt. would like to gain strength before returning home. He states that he is concerned about bathroom transfers at home. After resting, pt. states that he would like to lay down. Pt. is able to "wiggle" self toward HOB with effort. Requires max assist for sit-supine. All needs met. HOB elevated for easier breathing. All needs met and pt. reports that he feels comfortable. Education OT Patient Education: Correct positioning, Modified ADL techniques, Progress toward Goal/Update tx plan, Purpose of tx/functional activities, Reviewed precautions, Rehab process, Transfer techniques Teaching Recipient: Patient Teaching Methods: Demonstration, Discussion Response to Teaching: Verbalize Understanding, Return Demonstration OT Mcfp Goals Mcfp Goals Time Frame: Dec 26, 2019 Eating (QC): 6 Oral Hygiene (QC): 6 Toileting Hygiene (QC): 3 Shower/Bathe Self (QC): 3 Upper Body Dressing (QC): 6 Lower Body Dressing (QC): 3 On/Off Footwear (QC): 6 Additional Goals: 1-Demonstrate ADL Tasks, 2-Verbalize Understanding, 3- ImproveStrength/Jay 1=Demonstrate adherence to instructed precautions during ADL tasks. 2=Patient will verbalize/demonstrate understanding of assistive devices/modifications for ADL. 3=Patient will improve strength/tolerance for activity to enable patient to perform ADL's. OT Education/Plan Problem List/Assessment Assessment: Decreased Activ Tolerance, Dependent Transfers, Impaired Bed Mobility, Impaired I ADL's, Impaired Self-Care Skills Discharge Recommendations Plan/Recommendations: Continue POC Therapy Discharge Recommendati: Post Acute OT Treatment Plan/Plan of Care Treatment,Training & Education: Yes Patient would benefit from OT for education, treatment and training to promote independence in ADL's, mobility, safety and/or upper extremity function for ADL's. Plan of Care: ADL Retraining, Caregiver Training, Functional Mobility, Group Exercise/Act as Ind, UE Funct Exercise/Act, W/C Management Training Treatment Duration: Dec 26, 2019 Frequency: 5 times per week Estimated Hrs Per Day: .25 hour per day Agreement: Yes Rehab Potential: Fair Time/GCodes Start Time: :18 Stop Time: 13:33 Total Time Billed (hr/min): 15 Billed Treatment Time 1,ADL GINNA HERNANDEZ OT Dec 23, 2019 14:22
--- NOTE | 2019-12-23 15:12 | Cardiology Progress Note ---
Cardiology SOAP Progress Note Subjective: No cardiac complaint. Improved shortness of breath. Objective: I&O/Vital Signs 12/23/19 12/23/19 12/23/19 12/23/19 04:57 06:39 07:49 08:00 Temp 37.0 37.0 Pulse 95 91 56 Resp 20 20 B/P (MAP) 149/93 (111) 144/91 (108) Pulse Ox 92 92 97 O2 Delivery Nasal Cannula Nasal Cannula Nasal Cannula O2 Flow Rate 6.00 7.00 6.00 12/23/19 12/23/19 12/23/19 12/23/19 08:00 12:00 12:37 14:51 Temp 36.5 Pulse 86 95 Resp 20 B/P (MAP) 153/98 (116) Pulse Ox 95 92 O2 Delivery Nasal Cannula Nasal Cannula Nasal Cannula O2 Flow Rate 6.00 6.00 7.00 12/23/19 00:00 Intake Total 1580 ml Output Total 300 ml Balance 1280 ml Weight (Pounds): 358 Weight (Ounces): 1.0 Weight (Calculated Kilograms): 162.442998 Constitutional: AAO x 3 Respiratory: chest is bilaterally symmetric, lungs clear to auscultation Cardiovascular: regular rate-rhythm, S1 and S2 Gastrointestional: distended, audible bowel sounds Genital/Rectal: other (large scrotal edema and penile edema, cannot even see penis (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 Testicles are very tender to palpation but cannot see any erythema or obvious signs of infection) Extremities: normal inspection, pedal edema Neurologic/Psychiatric: no motor/sensory deficits, alert, normal mood/affect, oriented x 3 Skin: normal color, warm/dry Results/Procedures: Labs Laboratory Tests 12/22/19 15:40: Glucometer 98 12/22/19 20:22: Glucometer 160H 12/23/19 05:19: Glucometer 137H, White Blood Count 7.9, Red Blood Count 4.14L, Hemoglobin 11.1L, Hematocrit 37L, Mean Corpuscular Volume 90, Mean Corpuscular Hemoglobin 27, Mean Corpuscular Hemoglobin Concent 30L, Red Cell Distribution Width 15.6H, Platelet Count 362, Mean Platelet Volume 10.1, Neutrophils (%) (Auto) 77H, Lymphocytes (%) (Auto) 12, Monocytes (%) (Auto) 8, Eosinophils (%) (Auto) 2, Basophils (%) (Auto) 1, Neutrophils # (Auto) 6.0, Lymphocytes # (Auto) 0.9L, Monocytes # (Auto) 0.7, Eosinophils # (Auto) 0.2, Basophils # (Auto) 0.1, Sodium Level 142, Potassium Level 4.1, Chloride Level 103, Carbon Dioxide Level 29, Anion Gap 10, Blood Urea Nitrogen 19H, Creatinine 0.80, Estimat Glomerular Filtration Rate > 60, BUN/Creatinine Ratio 24, Glucose Level 134H, Calcium Level 8.6, Phosphorus Level 3.4, Magnesium Level 2.0, B-Type Natriuretic Peptide 1458.3H, Pr ocalcitonin 0.05 12/23/19 08:45: Blood Gas Puncture Site RT RAD, Blood Gas Patient Temperature 37.0, Arterial Blood pH 7.41, Arterial Blood Partial Pressure CO2 51H, Arterial Blood Partial Pressure O2 39*L, Arterial Blood HCO3 31H, Arterial Blood Total CO2 32.8H, Calli rial Blood Oxygen Saturation 64L, Arterial Blood Base Excess 6.6H, Mike Test YES-POS, Blood Gas Ventilator Setting NO, Blood Gas Inspired Oxygen 40% 12/23/19 11:35: Glucometer 195H Microbiology 12/12/19 Gram Stain - Final, Complete 12/12/19 Sputum Culture - Final, Complete Usual upper respiratory мария YEAST 12/06/19 Blood Culture - Final, Complete No growth 12/06/19 Urine Culture - Final, Complete NO GROWTH A/P: Assessment/Dx: Scrotal cellulitis, abscess, Meth abuse, Active smoker, Cardiomyopathy of unknown origin, Recent stroke, status post thrombolytics. Positive cardiac enzymes. DM, HTN, Hyperlipidemia, RBBB, LAFB, LVH on EKG. Typical atrial flutter. Plan: Status post acute respiratory failure, doing better at this time, on nasal cannula, still having some wheezing. Continue with bronchodilators. Coronary angiogram done on December 12, 2019 showing mild coronary artery disease nonobstructive disease Congestive heart failure, acute on chronic left ventricular systolic dysfunction, ejection fraction 20 percent, nonischemic cardiomyopathy, started on Coreg and losartan and tolerating it well. Continue with diuretics Hypernatremia, Lasix and monitor Hematuria, secondary to aggressive anticoagulation. Continue to monitor H&H Scrotal swelling and cellulitis, defer to the primary team. Treatment with IV antibiotics. Meth abuse, strongly recommended to quit. Atrial flutter with 2-1 AV block. Refractory to medical therapy with IV Cardizem. Patient is on Eliquis. Cardioversion was performed with anesthesia support on 12/07/2019. Underwent ablation on December 12, 2019, currently in sinus rhythm Recent Acute stroke, status post thrombolytics, resolution. Will require rehabilitation. Tobaccoism, smoking cessation was strongly recommended. DM, defer to the primary team. HTN, continue to monitor blood pressure Hyperlipidemia, high-dose Lipitor therapy. RBBB, left anterior fascicular block. Continue to monitor Noncompliance with medication, educated in length about compliance with medicine Thank you for your consultation. Please call me if you have any questions. Monika Storm MD, FACP, FACC, FSCAI, FHRS, CCDS Interventional Cardiology Cardiac Electrophysiology Vascular Medicine and Endovascular Interventions Focused Exam Time of Focused Exam: 02:40 Calvin STORM MD Dec 23, 2019 15:12
[2019-12-23 16:00] VITALS: BP 144/91
[2019-12-23 20:00] VITALS: BP 131/77
[2019-12-24] VITALS: BP 145/81
[2019-12-24] MEDS: RT-ALBUTEROL/IPRATROPIUM 3 ML (DUONEB) VIAL INH SCH ×4 (02:45→21:22)
[2019-12-24 04:14] VITALS: BP 138/83
[2019-12-24] MEDS: inSUlin ASPART (NovoLOG) 1 UNIT/0.01 ML (CHARGE PER UNIT) SC SCH ×4 (05:27→21:21)
--- NOTE | 2019-12-24 06:01 | Progress Note - Hospitalist ---
Subjective HPI/CC On Admission Date Seen by Provider: Dec 24, 2019 Time Seen by Provider: 09:45 Subjective/Events-last exam Pt doing pretty well Still on [address] Roy stopped the IV fluids and gave him Lasix to try to diurese more to wean oxygen Independent now with walking so does not need inpatient rehab Pt feels pretty good though Review of Systems General: Fatigue, Malaise Cardiovascular: Edema Focused Exam Time of Focused Exam: 02:40 Objective Exam Vital Signs Vital Signs Date Time Temp Pulse Resp B/P (MAP) Pulse Ox O2 Delivery O2 Flow Rate FiO2 12/24/19 19:38 35.7 96 18 102/64 (77) 94 Nasal Cannula 2.00 Capillary Refill : Less Than 3 SecondsLess Than 3 Seconds General Appearance: No Apparent Distress, WD/WN, Chronically ill, Obese Respiratory: Decreased Breath Sounds Cardiovascular: Regular Rate, Rhythm Extremity: Pedal Edema Results/Procedures Lab Laboratory Tests 12/24/19 06:03 Patient resulted labs reviewed. Assessment/Plan Assessment and Plan Assess & Plan/Chief Complaint Assessment: Recent VDRF CHF Meth use Edema Plan: Continue IV Diuresis Hopefully insurance will approve rehab Monitor edema DC catheter No longer needs in-patient rehab trying to wean off oxygen in order to discharge home on home health Critical Care Critically Ill Patient Diagnosis/Problems Diagnosis/Problems (1) Ventilator dependence (2) Congestive heart failure Qualifiers: Heart failure type: systolic Heart failure chronicity: unspecified Qualified Codes: I50.20 - Unspecified systolic (congestive) heart failure (3) Tachycardia Status: Resolved Resolution Date/Time: 12/16/19 @ 13:24 (4) Pneumonia (5) Methamphetamine abuse (6) Noncompliance Clinical Quality Measures DVT/VTE Risk/Contraindication: Risk Factor Score Per Nursin RFS Level Per Nursing on Admit: 4+=Very High GAYATRI GILL DO Dec 24, 2019 06:01
[2019-12-24 06:21] LABS: CHLORIDE 104 MMOL/L (98-107); POTASSIUM 3.8 MMOL/L (3.6-5.0); SODIUM 141 MMOL/L (135-145)
[2019-12-24 06:22] LABS: CALCIUM 8.7 MG/DL (8.5-10.1)
[2019-12-24 06:23] LABS: GLUCOSE 145 MG/DL (70-105)
[2019-12-24 06:24] LABS: CARBON DIOXIDE 28 MMOL/L (21-32)
[2019-12-24] MEDS: KCL 20 MEQ TAB (K-DUR) PO SCH ×2 (06:24→06:29)
[2019-12-24 06:27] LABS: CREATININE SERUM 0.78 MG/DL (0.60-1.30); GFR ESTIMATED > 60
[2019-12-24 06:28] LABS: BUN/CREATININE RATIO 21
[2019-12-24 08:03] VITALS: BP 135/86
[2019-12-24] MEDS: HYDROcodone/APAP 5 MG/325 MG (LORTAB) TAB PO PRN (08:07)
[2019-12-24] MEDS: polyethylene glycoL POWDER 17 GM (MIRALAX) PACK PO SCH (08:07)
[2019-12-24] MEDS: APIXABAN 5 MG (ELIQUIS) TABLET PO SCH ×2 (08:07→21:31)
[2019-12-24] MEDS: CARVEDILOL 3.125 MG (COREG) TABLET PO SCH ×2 (08:07→21:31)
[2019-12-24] MEDS: LOSARTAN 25 MG (COZAAR) TAB PO SCH (08:07)
[2019-12-24] MEDS: FAMOTIDINE 20 MG (PEPCID) TABLET PO SCH ×2 (08:07→21:31)
[2019-12-24] MEDS: NICOTINE 21 MG (NICODERM) PATCH TD SCH (08:07)
[2019-12-24] MEDS: FUROSEMIDE 40 MG (LASIX) TAB PO SCH ×2 (08:07→10:43)
[2019-12-24] MEDS: CLOPIDOGREL 75 MG (PLAVIX) TABLET PO SCH (08:07)
[2019-12-24] MEDS: MICONAZOLE 2% POWDER (DESENEX AF) 90 GM TOP SCH ×2 (08:09→21:32)
--- NOTE | 2019-12-24 08:14 | Pulmonary Progress Note ---
Subjective Time Seen by a Provider: 08:10 Subjective/Events-last exam Pt appears to be doing better. Sepsis Event Evaluation Height, Weight, BMI Height: 5'11.00" Weight: 358lbs. 1.0oz. 162.060832sx; 39.96 BMI Method: Focused Exam Time of Focused Exam: 02:40 Exam Exam Vital Signs Date Time Temp Pulse Resp B/P (MAP) Pulse Ox O2 Delivery O2 Flow Rate FiO2 12/24/19 08:03 36.4 91 22 135/86 (102) 95 Nasal Cannula 6.00 12/24/19 04:14 36.6 89 21 138/83 (101) 93 Nasal Cannula 6.00 12/24/19 03:10 94 Nasal Cannula 6.00 12/24/19 01:00 94 12/24/19 00:00 36.2 83 22 145/81 (102) 96 NIV Bilevel 12/23/19 21:29 90 24 96 40.00 12/23/19 20:00 Nasal Cannula 6.00 12/23/19 20:00 36.7 94 22 131/77 (95) 100 Nasal Cannula 6.00 12/23/19 19:00 96 12/23/19 16:00 37.0 56 20 144/91 (108) 97 Nasal Cannula 6.00 12/23/19 14:51 92 Nasal Cannula 7.00 12/23/19 12:37 95 12/23/19 12:00 36.5 86 20 153/98 (116) 95 Nasal Cannula 6.00 I & O 12/24/19 07:00 Intake Total 1960 ml Balance 1960 ml Height & Weight Height: 5'11.00" Weight: 358lbs. 1.0oz. 162.021276sk; 39.96 BMI Method: General Appearance: No Apparent Distress, WD/WN, Chronically ill, Obese HEENT: Other (intubated) Respiratory: No Accessory Muscle Use, No Respiratory Distress, Decreased Breath Sounds Cardiovascular: Regular Rate, Rhythm, No Gallop, No JVD, No Murmur, Normal Peripheral Pulses Capillary Refill: Less Than 3 Seconds Gastrointestinal: soft, no organomegaly, hernia (incarcerated umbilical hernia) Extremity: Pedal Edema Neurologic/Psychiatric: Alert, Oriented x3, No Motor/Sensory Deficits, Normal Mood/Affect Skin: Other (pt still has very severe scrotal edema, not improved at all. May even be slightly red, but no changes. Doubt there is an abscess just edema.) Results Lab Laboratory Tests 12/23/19 05:19 12/24/19 06:03 Assessment/Plan Assessment/Plan pulmonary edema with hypoxia -Repeat CXR shows pulmonary edema -Pt is currently requiring 6 liters of oxygen -BNP was 1458 -Will increase Lasix to 80mg daily for now Afib s/p cardioversion 12/06 Congestive heart failure with EF of 20% methamphetamine and Marijuana use -Education EP 12/11 -Presented to ICU after EP study intubated DM II VISHNU DE LOS SANTOS DO Dec 24, 2019 08:14
[2019-12-24] MEDS: NICOTINE PATCH REMOVAL TP SCH (08:17)
--- NOTE | 2019-12-24 09:39 | Physical Therapy Daily Note ---
PT Daily Note-Current Subjective Patient states, "I just want to go home." Agrees to PT. Pain Numeric Pain Scale: 0-No Pain Location: No Pain Reported Mental Status Patient Orientation: Normal For Age Attachments: Oxygen (6L) Transfers SCALE: Activities may be completed with or without assistive devices. 4-Hwrlbobiie-iskptru completes the activity by him/herself with no assistance from a helper. 5-Set-up or Clean-up Assistance-helper sets up or cleans up; patient completes activity. [place] assists only prior to or following the activity. 4-Supervision or Touching Assistance-helper provides verbal cues and/or touching/steadying and/or contact guard assistance as patient completes acti vity. Assistance may be provided throughout the activity or intermittently. 3-Partial/Moderate Assistance-helper does LESS THAN HALF the effort. [place] lifts, holds or supports trunk or limbs, but provides less than half the effort. 2-Substantial/Maximal Assistance-helper does MORE THAN HALF the effort. [place] lifts or holds trunk or limbs and provides more than half the effort. 6-Iaqaiazjf-iyqiin does ALL the effort. Patient does none of the effort to complete the activity. Or, the assistance of 2 or more helpers is required for the patient to complete the activity. If activity was not attempted, code reason: 7-Patient Refused. 9-Not Applicable-not attempted and the patient did not perform the activity before the current illness, exacerbation or injury. 10-Not Attempted due to Environmental Limitations-(lack of equipment, weather restraints, etc.). 88-Not Attempted due to Medical Conditions or Safety Concerns. Sit to Stand (QC): 6 Weight Bearing Right Lower Extremity: Right Weight Bearing/Tolerated Left Lower Extremity: Left Weight Bearing/Tolerated Gait Training Does the Patient Walk?: Yes Distance: 400' Walk 10 feet (QC): 6 Walk 50 ft with 2 Turns(QC): 6 Walk 150 ft (QC): 6 Gait Assistive Device: FWW 1 standing recovery period due to SOA, however, much improved with distance and pulmonary endurance. SAO2 maintained >90% Exercises Seated Therapy Exercises: Ankle pumps, Long arc quads Seated Reps: 15 (2 sets) Assessment Patient tolerated treatment well and desires to return to home soon. PT to continue to address pulmonary function with functional mobility. PT Short Term Goals Short Term Goals Time Frame: Dec 19, 2019 PT Mandrel Press Hand Goals Chcf Goals PT Chcf Goals Time Frame: Dec 28, 2019 Roll Left & Right (QC): 3 Sit to Lying (QC): 3 Lying-Sitting on Side/Bed(QC): 3 Sit to Stand (QC): 4 Chair/Mvh-rs-Ercom Xfer(QC): 4 Walk 10 feet (QC): 4 PT Plan Treatment/Plan Treatment Plan: Continue Plan of Care Treatment Plan: Bed Mobility, Education, Functional Activity Jay, Functional Strength, Gait, Safety, Therapeutic Exercise, Transfers Treatment Duration: Dec 28, 2019 Frequency: 6 times per week Estimated Hrs Per Day: .25 hour per day Patient and/or Family Agrees t: Yes Time/GCodes Time In: 900 Time Out: 910 Total Billed Treatment Time: 10 Total Billed Treatment 1 visit FA 10 min TALON CANELA PT Dec 24, 2019 09:39
--- NOTE | 2019-12-24 09:56 | Progress Note - Urology ---
Progress Note-Urology Progress Notes/Assess & Plan Progress/Assessment & Plan AWAITING APPROVAL FOR REHAB. BUSH OUT AND VOIDING WELL ON OWN. CYSTOSCOPY ONCE FEASIBLE Final Diagnosis GROSS HEMATURIA RONNIE ELLIOTT MD Dec 24, 2019 09:56
--- NOTE | 2019-12-24 11:23 | Occupational Ther Daily Note ---
OT Current Status-Daily Note Subjective Pt sitting EOB, agrees to therapy. Pt reports "discomfort" in legs, but does not rate. Mental Status/Objective Attachments: Oxygen ADL-Treatment Pt states he just returned from ambulating with PT. States he is getting around much better and is waiting to hear when he will go home. Pt demonstrated ability to doff/don right sock while seated EOB. Declined to attempt left. Pt states he has already been up to restroom and completed grooming tasks this morning. Declined to complete ADLs at this time. Education provided regarding ADL/home safety and energy conservation. Pt states understanding of education and has no questions or concerns at this time. Pt requests to sit in chair. Sit to stand with supervision. Transfer to chair with FWW, assist only to manage O2 tubing. Pt sitting in chair with needs met and RT present after session. Therapy Code Descriptions/Definitions Functional Soldier Measure: 0=Not Assessed/NA 4=Minimal Assistance 1=Total Assistance 5=Supervision or Setup 2=Maximal Assistance 6=Modified Soldier 3=Moderate Assistance 7=Complete IndependenceSCALE: Activities may be completed with or without assistive devices. 2-Djrjhurqop-gxxifhx completes the activity by him/herself with no assistance from a helper. 5-Set-up or Clean-up Assistance-helper sets up or cleans up; patient completes activity. [place] assists only prior to or following the activity. 4-Supervision or Touching Assistance-helper provides verbal cues and/or touching/steadying and/or contact guard assistance as patient completes activity. Assistance may be provided throughout the activity or intermittently. 3-Partial/Moderate Assistance-helper does LESS THAN HALF the effort. [place] lifts, holds or supports trunk or limbs, but provides less than half the effort. 2-Substantial/Maximal Assistance-helper does MORE THAN HALF the effort. [place] lifts or holds trunk or limbs and provides more than half the effort. 5-Qnuyjihms-ijptrg does ALL the effort. Patient does none of the effort to complete the activity. Or, the assistance of 2 or more helpers is required for the patient to complete the activity. If activity was not attempted, code reason: 7-Patient Refused. 9-Not Applicable-not attempted and the patient did not perform the activity before the current illness, exacerbation or injury. 10-Not Attempted due to Environmental Limitations-(lack of equipment, weather restraints, etc.). 88-Not Attempted due to Medical Conditions or Safety Concerns. Education OT Patient Education: Safety issues Teaching Recipient: Patient Teaching Methods: Discussion Response to Teaching: Verbalize Understanding OT Building Architectural Designer Goals Custodial Goals Time Frame: Dec 26, 2019 Eating (QC): 6 Oral Hygiene (QC): 6 Toileting Hygiene (QC): 3 Shower/Bathe Self (QC): 3 Upper Body Dressing (QC): 6 Lower Body Dressing (QC): 3 On/Off Footwear (QC): 6 Additional Goals: 1-Demonstrate ADL Tasks, 2-Verbalize Understanding, 3- ImproveStrength/Jay 1=Demonstrate adherence to instructed precautions during ADL tasks. 2=Patient will verbalize/demonstrate understanding of assistive devices/modifications for ADL. 3=Patient will improve strength/tolerance for activity to enable patient to perform ADL's. OT Education/Plan Discharge Recommendations Plan/Recommendations: Continue POC Treatment Plan/Plan of Care Patient would benefit from OT for education, treatment and training to promote independence in ADL's, mobility, safety and/or upper extremity function for ADL's. Plan of Care: ADL Retraining, Caregiver Training, Functional Mobility, Group Exercise/Act as Ind, UE Funct Exercise/Act, W/C Management Training Treatment Duration: Dec 26, 2019 Frequency: 5 times per week Estimated Hrs Per Day: .25 hour per day Agreement: Yes Rehab Potential: Fair Time/GCodes Start Time: 09:49 Stop Time: 09:59 Total Time Billed (hr/min): 10 Billed Treatment Time 1 visit, ADL(10minutes) PAULINE BONILLA OT Dec 24, 2019 11:23
[2019-12-24 11:51] VITALS: BP 130/83
--- NOTE | 2019-12-24 12:51 | NUR ---
CM/SS follow up. CM/SS spoke with patients physician regarding discharge planning. Due to the patient's improvement with physical therapy, the physician is agreeable with patient going with home health once the patients oxygen need is decreased. The patient does not meet criteria for inpatient rehab unit. CM/SS will continue to follow for discharge planning.
--- NOTE | 2019-12-24 13:04 | NUR ---
"RD ASSESSMENT PMHx: HTN; HLD; gout; DM; methamphetamine use PT INTERACTION: Pt was awake and pleasant during nutrition follow-up. Pt states he has been eating well since last assessment. Note avg PO intake 100% x3d, per chart review. Pt states no issues with nausea, vomiting, constipation, or diarrhea since last assessment. Note last BM was 12/23, and pt currently on bowel regimen of miralax qd, per chart review. ABNORMAL NUTRITION-RELATED LAB VALUES LOW: HIGH: glu 145 Est. kcal needs: 1950 kcal | 15 kcal/kg Est. Pro needs: 105 g Pro | 0.8 g Pro/kg PES STATEMENT: Given current appetite and PO intake, no nutrition diagnosis at this time (NO-1.1) INTERVENTION: Continue with current diet order of Heart Healthy diet. Pt may benefit from consistent CHO restriction if blood glucose levels become elevated. Will continue to follow and reassess as pt needs, intake, and status change. MONITOR/EVALUATE: PO Intake; Plan of Care; Hydration Status; Weight Status; Lab Values Melo Guerra, MS, RD, LD"
--- NOTE | 2019-12-24 14:16 | Cardiology Progress Note ---
Cardiology SOAP Progress Note Subjective: Improved shortness of breath. Objective: I&O/Vital Signs 12/24/19 12/24/19 12/24/19 12/24/19 03:10 04:14 07:07 08:03 Temp 36.6 36.4 Pulse 89 91 91 Resp 21 22 B/P (MAP) 138/83 (101) 135/86 (102) Pulse Ox 94 93 95 O2 Delivery Nasal Cannula Nasal Cannula Nasal Cannula O2 Flow Rate 6.00 6.00 6.00 12/24/19 12/24/19 12/24/19 09:59 11:51 12:44 Temp 36.5 Pulse 89 88 Resp 18 B/P (MAP) 130/83 (99) Pulse Ox 96 96 O2 Delivery Nasal Cannula Nasal Cannula O2 Flow Rate 7.00 6.00 12/24/19 00:00 Intake Total 1810 ml Balance 1810 ml Weight (Pounds): 358 Weight (Ounces): 1.0 Weight (Calculated Kilograms): 162.301593 Constitutional: AAO x 3 Respiratory: chest is bilaterally symmetric, lungs clear to auscultation Cardiovascular: regular rate-rhythm, S1 and S2 Gastrointestional: distended, audible bowel sounds Genital/Rectal: other (large scrotal edema and penile edema, cannot even see penis (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 Testicles are very tender to palpation but cannot see any erythema or obvious signs of infection) Extremities: normal inspection, pedal edema Neurologic/Psychiatric: no motor/sensory deficits, alert, normal mood/affect, oriented x 3 Skin: normal color, warm/dry Results/Procedures: Labs Laboratory Tests 12/23/19 16:48: Glucometer 104 12/23/19 20:37: Glucometer 127H 12/24/19 05:19: Glucometer 164H 12/24/19 06:03: Sodium Level 141, Potassium Level 3.8, Chloride Level 104, Carbon Dioxide Level 28, Anion Gap 9, Blood Urea Nitrogen 16, Creatinine 0.78, Estimat Glomerular Filtration Rate > 60, BUN/Creatinine Ratio 21, Glucose Level 145H, Calcium Level 8.7, Magnesium Level 2.0 12/24/19 10:56: Glucometer 189H Microbiology 12/12/19 Gram Stain - Final, Complete 12/12/19 Sputum Culture - Final, Complete Usual upper respiratory мария YEAST 12/06/19 Blood Culture - Final, Complete No growth 12/06/19 Urine Culture - Final, Complete NO GROWTH A/P: Assessment/Dx: Scrotal cellulitis, abscess, Meth abuse, Active smoker, Cardiomyopathy of unknown origin, Recent stroke, status post thrombolytics. Positive cardiac enzymes. DM, HTN, Hyperlipidemia, RBBB, LAFB, LVH on EKG. Typical atrial flutter. Plan: Status post acute respiratory failure, doing better at this time, on nasal cannula, Continue with bronchodilators. Coronary angiogram done on December 12, 2019 showing mild coronary artery disease nonobstructive disease Congestive heart failure, acute on chronic left ventricular systolic d ysfunction, ejection fraction 20 percent, nonischemic cardiomyopathy, started on Coreg and losartan and tolerating it well. Patient was given lifevest previously but he is not wearing it and doesn't want to wear it. Continue with diuretics Hypernatremia, Lasix and monitor Hematuria, secondary to aggressive anticoagulation. Continue to monitor H&H Scrotal swelling and cellulitis, defer to the primary team. Treatment with IV antibiotics. Meth abuse, strongly recommended to quit. Atrial flutter with 2-1 AV block. Refractory to medical therapy with IV Cardizem. Patient is on Eliquis. Cardioversion was performed with anesthesia support on 12/07/2019. Underwent ablation on December 12, 2019, currently in sinus rhythm Recent Acute stroke, status post thrombolytics, resolution. Will require rehabilitation. Tobaccoism, smoking cessation was strongly recommended. DM, defer to the primary team. HTN, continue to monitor blood pressure Hyperlipidemia, high-dose Lipitor therapy. RBBB, left anterior fascicular block. Continue to monitor Noncompliance with medication, educated in length about compliance with medicine Thank you for your consultation. Please call me if you have any questions. Monika Storm MD, FACP, FACC, FSCAI, FHRS, CCDS Interventional Cardiology Cardiac Electrophysiology Vascular Medicine and Endovascular Interventions Focused Exam Time of Focused Exam: 02:40 Calvin STORM MD Dec 24, 2019 14:16
--- NOTE | 2019-12-24 14:40 | NUR ---
Pastoral care visit.
[2019-12-24 16:00] VITALS: BP 150/94
[2019-12-24 19:38] VITALS: BP 102/64
--- NOTE | 2019-12-24 19:57 | NUR ---
DR. GILL NOTIFIED OF PT'S REFUSAL OF STARTING A NEW IV AFTER THE PREVIOUS ONE FELL OUT FOR THE DAY SHIFT RN. DR. GILL GAVE ORDERS TO LEAVE IV OUT.
[2019-12-25 00:50] VITALS: BP 140/77
[2019-12-25] MEDS: RT-ALBUTEROL/IPRATROPIUM 3 ML (DUONEB) VIAL INH SCH ×2 (02:43→07:06)
[2019-12-25 04:00] VITALS: BP 132/79
[2019-12-25 05:43] VITALS: BP 132/79
[2019-12-25 06:16] LABS: CHLORIDE 101 MMOL/L (98-107); POTASSIUM 3.9 MMOL/L (3.6-5.0); SODIUM 142 MMOL/L (135-145)
[2019-12-25 06:17] LABS: CALCIUM 9.1 MG/DL (8.5-10.1); GLUCOSE 131 MG/DL (70-105)
[2019-12-25 06:19] LABS: CARBON DIOXIDE 29 MMOL/L (21-32)
[2019-12-25] MEDS: inSUlin ASPART (NovoLOG) 1 UNIT/0.01 ML (CHARGE PER UNIT) SC SCH ×2 (06:19→11:36)
[2019-12-25] MEDS: KCL 20 MEQ TAB (K-DUR) PO SCH ×2 (06:19→06:32)
[2019-12-25 06:21] LABS: CREATININE SERUM 0.76 MG/DL (0.60-1.30); GFR ESTIMATED > 60
[2019-12-25 06:22] LABS: BUN/CREATININE RATIO 14
[2019-12-25] MEDS: NICOTINE PATCH REMOVAL TP SCH (07:42)
[2019-12-25] MEDS: polyethylene glycoL POWDER 17 GM (MIRALAX) PACK PO SCH (07:42)
[2019-12-25] MEDS: NICOTINE 21 MG (NICODERM) PATCH TD SCH (07:42)
[2019-12-25] MEDS: APIXABAN 5 MG (ELIQUIS) TABLET PO SCH (07:43)
[2019-12-25] MEDS: LOSARTAN 25 MG (COZAAR) TAB PO SCH (07:43)
[2019-12-25] MEDS: FAMOTIDINE 20 MG (PEPCID) TABLET PO SCH (07:43)
[2019-12-25] MEDS: CARVEDILOL 3.125 MG (COREG) TABLET PO SCH (07:43)
[2019-12-25] MEDS: FUROSEMIDE 40 MG (LASIX) TAB PO SCH (07:44)
[2019-12-25] MEDS: CLOPIDOGREL 75 MG (PLAVIX) TABLET PO SCH (07:44)
[2019-12-25] MEDS: MICONAZOLE 2% POWDER (DESENEX AF) 90 GM TOP SCH (07:45)
[2019-12-25 08:00] VITALS: BP 135/84
--- NOTE | 2019-12-25 09:34 | Pulmonary Progress Note ---
Subjective Date Seen by a Provider: Dec 25, 2019 Time Seen by a Provider: 09:30 Subjective/Events-last exam Pt appears to be doing better. Sepsis Event Evaluation Height, Weight, BMI Height: 5'11.00" Weight: 358lbs. 1.0oz. 162.020213vu; 39.96 BMI Method: Focused Exam Time of Focused Exam: 02:40 Exam Exam Vital Signs Date Time Temp Pulse Resp B/P (MAP) Pulse Ox O2 Delivery O2 Flow Rate FiO2 12/25/19 08:00 36.4 88 18 135/84 (101) 94 Nasal Cannula 3.00 12/25/19 08:00 94 Nasal Cannula 3.00 12/25/19 07:08 88 Nasal Cannula 3.00 12/25/19 06:47 85 12/25/19 04:00 36.8 86 22 132/79 (96) 91 Nasal Cannula 2.00 12/25/19 02:43 94 Nasal Cannula 3.00 12/25/19 01:00 87 12/25/19 00:50 36.6 91 22 140/77 (98) 91 Nasal Cannula 2.00 12/24/19 21:30 Nasal Cannula 3.00 12/24/19 21:22 94 Nasal Cannula 3.00 12/24/19 19:38 35.7 96 18 102/64 (77) 94 Nasal Cannula 2.00 12/24/19 19:00 94 12/24/19 16:00 37.0 103 20 150/94 (112) 93 Nasal Cannula 2.00 12/24/19 15:35 94 Nasal Cannula 3.00 12/24/19 12:44 88 12/24/19 11:51 36.5 89 18 130/83 (99) 96 Nasal Cannula 6.00 12/24/19 09:59 96 Nasal Cannula 7.00 I & O 12/25/19 07:00 Intake Total 1330 ml Balance 1330 ml Height & Weight Height: 5'11.00" Weight: 358lbs. 1.0oz. 162.212358tm; 39.96 BMI Method: General Appearance: No Apparent Distress, WD/WN, Chronically ill, Obese HEENT: Other (intubated) Respiratory: Decreased Breath Sounds Cardiovascular: Regular Rate, Rhythm Capillary Refill: Less Than 3 Seconds Gastrointestinal: soft, no organomegaly, hernia (incarcerated umbilical hernia) Extremity: Pedal Edema Neurologic/Psychiatric: Alert, Oriented x3, No Motor/Sensory Deficits, Normal Mood/Affect Skin: Other (pt still has very severe scrotal edema, not improved at all. May even be slightly red, but no changes. Doubt there is an abscess just edema.) Results Lab Laboratory Tests 12/24/19 06:03 12/25/19 05:20 Assessment/Plan Assessment/Plan pulmonary edema with hypoxia -Repeat CXR shows pulmonary edema -Pt is currently requiring only 3 liters of oxygen - Lasix currently 80mg daily Afib s/p cardioversion 12/06 Congestive heart failure with EF of 20% methamphetamine and Marijuana use -Education EP 12/11 -Presented to ICU after EP study intubated DM II Pt is ok for discharge from pulmonary standpoint. VISHNU DE LOS SANTOS DO Dec 25, 2019 09:34
--- NOTE | 2019-12-25 10:14 | Physical Therapy Daily Note ---
PT Daily Note-Current Subjective Patient in recliner pre tx, agrees to PT, patient states he is doing a lot better and has less scrotal swelling, has no complaints of pain. Patient requests to try ambulating without an AD. Appearance Patient in recliner post tx with nurse call,phone, tray, all needs met. Mental Status Patient Orientation: Person, Place, Situation Attachments: Oxygen Transfers SCALE: Activities may be completed with or without assistive devices. 6-Zcstvdxxwz-rtmhngg completes the activity by him/herself with no assistance from a helper. 5-Set-up or Clean-up Assistance-helper sets up or cleans up; patient completes activity. [place] assists only prior to or following the activity. 4-Supervision or Touching Assistance-helper provides verbal cues and/or touching/steadying and/or contact guard assistance as patient completes activity. Assistance may be provided throughout the activity or intermittently. 3-Partial/Moderate Assistance-helper does LESS THAN HALF the effort. [place] lifts, holds or supports trunk or limbs, but provides less than half the effort. 2-Substantial/Maximal Assistance-helper does MORE THAN HALF the effort. [place] lifts or holds trunk or limbs and provides more than half the effort. 0-Tlpuirrgp-fbddea does ALL the effort. Patient does none of the effort to complete the activity. Or, the assistance of 2 or more helpers is required for the patient to complete the activity. If activity was not attempted, code reason: 7-Patient Refused. 9-Not Applicable-not attempted and the patient did not perform the activity before the current illness, exacerbation or injury. 10-Not Attempted due to Environmental Limitations-(lack of equipment, weather restraints, etc.). 88-Not Attempted due to Medical Conditions or Safety Concerns. Sit to Stand (QC): 6 Chair/Zii-yh-Tzqdz Xfer(QC): 6 Weight Bearing Right Lower Extremity: Right Weight Bearing/Tolerated Left Lower Extremity: Left Weight Bearing/Tolerated Gait Training Distance: 250' Walk 10 feet (QC): 4 Walk 50 ft with 2 Turns(QC): 4 Walk 150 ft (QC): 4 Gait Persons Needed: 1 Gait Assistive Device: None SBA, slow ambulation, wide ROSEMARY and hips externally rotated, holds on to railing along wall when available. No LOB but seems to have occasional slight unsteadiness. Exercises Seated Therapy Exercises: Ankle pumps, Long arc quads Seated Reps: 15 Treatments transfers, ambulation, LE exercise Assessment Current Status: Fair Progress improving strength and ambulation PT Short Term Goals Short Term Goals Time Frame: Dec 19, 2019 PT Refrigeration Plant Operator Goals Senior Care Goals PT Refrigeration Plant Operator Goals Time Frame: Dec 28, 2019 Roll Left & Right (QC): 3 Sit to Lying (QC): 3 Lying-Sitting on Side/Bed(QC): 3 Sit to Stand (QC): 4 Chair/Ali-ag-Vqquv Xfer(QC): 4 Walk 10 feet (QC): 4 PT Plan Problem List Problem List: Activity Tolerance, Functional Strength, Safety, Balance, Gait, Transfer Treatment/Plan Treatment Plan: Continue Plan of Care Treatment Plan: Bed Mobility, Education, Functional Activity Jay, Functional Strength, Gait, Safety, Therapeutic Exercise, Transfers Treatment Duration: Dec 28, 2019 Frequency: 6 times per week Estimated Hrs Per Day: .25 hour per day Patient and/or Family Agrees t: Yes Safety Risks/Education Patient Education: Gait Training, Transfer Techniques, Correct Positioning, Safety Issues Teaching Recipient: Patient Teaching Methods: Demonstration, Discussion Response to Teaching: Reinforcement Needed Time/GCodes Time In: 914 Time Out: 927 Total Billed Treatment Time: 13 Total Billed Treatment 1 visit FA FAUSTINO ALMANAZ PT Dec 25, 2019 10:14
[2019-12-25] MEDS ORDERED: HYDR-83 PO (10:25)
[2019-12-25] MEDS ORDERED: POTA20TA15 PO (10:25)
[2019-12-25] MEDS ORDERED: NICO1PAT34 TD (10:25)
[2019-12-25] MEDS ORDERED: IPRA3AMP31 INH (10:25)
[2019-12-25] MEDS ORDERED: PEN-53 MC (10:25)
[2019-12-25] MEDS ORDERED: CLOP75TA28 PO (10:25)
[2019-12-25] MEDS ORDERED: APIX5TAB PO (10:25)
[2019-12-25] MEDS ORDERED: LOSA25TA41 PO (10:25)
[2019-12-25] MEDS ORDERED: FAMO20TA5 PO (10:25)
[2019-12-25] MEDS ORDERED: INSU100I29 SQ (10:25)
[2019-12-25] MEDS ORDERED: CARV3.122 PO (10:25)
[2019-12-25] MEDS ORDERED: INSU100I14 SQ (10:25)
[2019-12-25] MEDS ORDERED: DILT60TA PO (10:25)
[2019-12-25] MEDS ORDERED: ATOR80TA76 PO (10:25)
[2019-12-25] MEDS ORDERED: FURO40TA4 PO (10:25)
--- NOTE | 2019-12-25 10:28 | D/C HH Face to Face Order ---
D/C Face to Face Orders Reconcile Patient Problems Problems Reviewed?: Yes Instructions for Patient Via Marleni Kippt, Patient Instructions/FollowUp: [facility] [address] Storm 2 weeks Physician to follow Patient: [facility] Discharge Diet for Home: ADA Diet, Low Sodium Diet Patient Problems: CHF Meth use COPD DM CAD AF Goals for Patient: [place] Patient Data-Allergies,Ht & Wt Patient Allergies: Coded Allergies: No Known Drug Allergies (Unverified , 02/26/14) Height (Feet): 5 Height (Inches): 11.00 Weight (Pounds): 358 Weight (Ounces): 1.0 Home Health Need/Face to Face Date of Face to Face: Dec 25, 2019 Clinical Findings: Generalized weakness and fatigue, Muscle weakness, Shortness of breath, Unsteady gait I have seen Pt djry-oz-sdob: Yes Discharged To: Home Diagnosis/Conditions: Meth use COPD DM CAD AF Patient is Homebound due to: [place] fall risk due to instabilty, Muscle weakness, Pain w/ambulation, Shortness of breath/distress Homebound Status Due to the above stated illness, injury or surgical procedure (medical condition or diagnosis) and associated clinical findings, the patient is homebound because of his/her inability to leave home except with aid of a supportive device and/or person AND leaving the home requires a considerable and taxing effort or is medically contraindicated. Pt req the following assistanc: [facility] Nursing Orders Home Health Services Order: Nursing Services, Fry Cook-Evaluate & Treat, Physical Therapy-Evaluate & Treat Home Health Infusion Therapy Line Start Date: Dec 06, 2019 Certify Stmt I certify that this patient is under my care and that I, a nurse practitioner or a physician; a workers compensation claims assistant working with me, had a face to face encounter that - meets the physician face to face encounter requirements with this patient as dated. GAYATRI GILL DO Dec 25, 2019 10:28
--- NOTE | 2019-12-25 10:29 | Discharge Summary ---
Diagnosis/Chief Complaint Date of Admission Dec 06, 2019 at 02:45 Date of Discharge Discharge Date: Dec 25, 2019 Discharge Summary Discharge Physical Examination Allergies: Coded Allergies: No Known Drug Allergies (Unverified , 02/26/14) Vitals & I&Os Vital Signs Date Time Temp Pulse Resp B/P (MAP) Pulse Ox O2 Delivery O2 Flow Rate FiO2 12/25/19 11:46 36.7 87 20 150/98 (115) 96 Nasal Cannula 3.00 Hospital Course Labs (last 24 hrs) Laboratory Tests 12/06/19 01:46: Troponin I 0.049H 12/06/19 01:49: White Blood Count 9.2, Red Blood Count 4.18L, Hemoglobin 11.9L, Hematocrit 38L, Mean Corpuscular Volume 90, Mean Corpuscular Hemoglobin 29, Mean Corpuscular Hemoglobin Concent 32, Red Cell Distribution Width 15.6H, Platelet Count 283, Mean Platelet Volume 10.6H, Neutrophils (%) (Auto) 69, Lymphocytes (%) (Auto) 20, Monocytes (%) (Auto) 8, Eosinophils (%) (Auto) 2, Basophils (%) (Auto) 1, Neutrophils # (Auto) 6.4, Lymphocytes # (Auto) 1.8, Monocytes # (Auto) 0.8, Eosinophils # (Auto) 0.2, Basophils # (Auto) 0.1, Prothrombin Time 15.4H, INR Comment 1.2, Activated Partial Thromboplast Time 30, Sodium Level 143, Potassium Level 4.2, Chloride Level 107, Carbon Dioxide Level 23, Anion Gap 13, Blood Urea Nitrogen 30H, Creatinine 1.22, Estimat Glomerular Filtration Rate > 60, BUN/Creatinine Ratio 25, Glucose Level 156H, Lactic Acid Level 2.14*H, Calcium Level 9.0, Corrected Calcium 9.2, Total Bilirubin 0.3, Aspartate Amino Transf (AST/SGOT) 12, Alanine Aminotransferase (ALT/SGPT) 14, Alkaline Phosphatase 56, Ammonia 35H, B-Type Natriuretic Peptide 772.8H, Total Protein 6.3L, Albumin 3.7, Serum Alcohol < 10 12/06/19 01:50: Urine Color YELLOW, Urine Clarity CLEAR, Urine pH 5.5, Urine Specific Brandt >=1.030, Urine Protein TRACEH, Urine Glucose (UA) NEGATIVE, Urine Ketones NEGATIVE, Urine Nitrite NEGATIVE, Urine Bilirubin NEGATIVE, Urine Urobilinogen 0.2, Urine Leukocyte Esterase NEGATIVE, Urine RBC (Auto) NEGATIVE, Urine RBC NON E, Urine WBC NONE, Urine Squamous Epithelial Cells RARE, Urine Crystals PRESENTH , Urine Amorphous Sediment FEW SAUNDRA URATESH, Urine Bacteria TRACE, Urine Casts PRESENT, Urine Hyaline Casts RARE, Urine Mucus SMALLH, Urine Culture Indicated CULTURE PENDING, Urine Opiates Screen NEGATIVE, Urine Oxycodone Screen NEGATIVE, Urine Methadone Screen NEGATIVE, Urine Propoxyphene Screen NEGATIVE, Urine Barbiturates Screen NEGATIVE, Ur Tricyclic Antidepressants Screen NEGATIVE, Urine Phencyclidine Screen NEGATIVE, Urine Amphetamines Screen POSITIVEH, Urine Methamphetamines Screen POSITIVEH, Urine Benzodiazepines Screen NEGATIVE, Urine Cocaine Screen NEGATIVE, Urine Cannabinoids Screen POSITIVEH 12/06/19 02:45: Lab Scanned Report Referred Lab Report 12/06/19 04:04: Lactic Acid Level 1.22 12/06/19 07:38: White Blood Count 11.1H, Red Blood Count 4.29L, Hemoglobin 11.9L, Hematocrit 39L , Mean Corpuscular Volume 91, Mean Corpuscular Hemoglobin 28, Mean Corpuscular Hemoglobin Concent 30L, Red Cell Distribution Width 15.9H, Platelet Count 258, Mean Platelet Volume 10.8H, Neutrophils (%) (Auto) 75, Lymphocytes (%) (Auto) 15, Monocytes (%) (Auto) 7, Eosinophils (%) (Auto) 2, Basophils (%) (Auto) 1, Neutrophils # (Auto) 8.3H, Lymphocytes # (Auto) 1.6, Monocytes # (Auto) 0.8, Eosinophils # (Auto) 0.3, Basophils # (Auto) 0.1, Sodium Level 143, Potassium L evel 4.0, Chloride Level 110H, Carbon Dioxide Level 22, Anion Gap 11, Blood Urea Nitrogen 30H, Creatinine 1.07, Estimat Glomerular Filtration Rate > 60, BUN/Creatinine Ratio 28, Glucose Level 132H, Calcium Level 8.5, Corrected Calcium 8.8, Total Bilirubin 0.3, Aspartate Amino Transf (AST/SGOT) 11, Alanine Aminotransferase (ALT/SGPT) 14, Alkaline Phosphatase 52, Troponin I 0.053H, Total Protein 6.2L, Albumin 3.6 12/06/19 11:42: Glucometer 240H 12/06/19 15:25: Glucometer 130H 6/26/20 20:51: Glucometer 210H 12/07/19 03:00: White Blood Count 11.1H, Red Blood Count 4.10L, Hemoglobin 11.3L, Hematocrit 38L , Mean Corpuscular Volume 92, Mean Corpuscular Hemoglobin 28, Mean Corpuscular Hemoglobin Concent 30L, Red Cell Distribution Width 16.1H, Platelet Count 274, Mean Platelet Volume 10.5H, Neutrophils (%) (Auto) 75, Lymphocytes (%) (Auto) 14, Monocytes (%) (Auto) 8, Eosinophils (%) (Auto) 3, Basophils (%) (Auto) 1, Neutrophils # (Auto) 8.4H, Lymphocytes # (Auto) 1.5, Monocytes # (Auto) 0.9, Eosinophils # (Auto) 0.3, Basophils # (Auto) 0.1, Sodium Level 144, Potassium Level 3.9, Chloride Level 113H, Carbon Dioxide Level 23, Anion Gap 8, Blood Urea Nitrogen 27H, Creatinine 0.82, Estimat Glomerular Filtration Rate > 60, BUN/Creatinine Ratio 33, Glucose Level 121H, Calcium Level 7.8L 12/07/19 11:39: Glucometer 95 12/07/19 15:37: Glucometer 186H 12/07/19 18:00: Blood Gas Puncture Site LT RAD, Blood Gas Patient Temperature 36.8, Arterial Blood pH 7.32*L, Arterial Blood Partial Pressure CO2 48H, Arterial Blood Partial Pressure O2 72L, Arterial Blood HCO3 24, Arterial Blood Total CO2 25.5, Arterial Blood Oxygen Saturation 92L, Arterial Blood Base Excess -1.4, Mike Test YES- POS, Blood Gas Ventilator Setting NO, Blood Gas Inspired Oxygen NA 12/07/19 20:11: Glucometer 306H 12/08/19 06:00: Glucometer 288H 12/08/19 08:30: Vancomycin Level Trough 25.3*H 12/08/19 10:49: Glucometer 234H 12/08/19 15:36: Glucometer 204H 12/08/19 20:29: Glucometer 397H 12/09/19 05:40: Glucometer 186H 12/09/19 10:06: White Blood Count 10.0, Red Blood Count 4.00L, Hemoglobin 11.0L, Hematocrit 37L, Mean Corpuscular Volume 94, Mean Corpuscular Hemoglobin 28, Mean Corpuscular Hemoglobin Concent 29L, Red Cell Distribution Width 15.8H, Platelet Count 246, Mean Platelet Volume 10.5H, Neutrophils (%) (Auto) 78H, Lymphocytes (%) (Auto) 11L, Monocytes (%) (Auto) 9, Eosinophils (%) (Auto) 1, Basophils (%) (Auto) 1, Neutrophils # (Auto) 7.8, Lymphocytes # (Auto) 1.1, Monocytes # (Auto) 0.9, Eosinophils # (Auto) 0.1, Basophils # (Auto) 0.1, Sodium Level 142, Potassium Level 4.2, Chloride Level 110H, Carbon Dioxide Level 23, Anion Gap 9, Blood Urea Nitrogen 17, Creatinine 0.80, Estimat Glomerular Filtration Rate > 60, BUN/Creatinine Ratio 21, Glucose Level 219H, Lactic Acid Level 0.86, Calcium Level 8.4L, Corrected Calcium 8.9, Total Bilirubin 0.4, Aspartate Amino Transf (AST/SGOT) 9, Alanine Aminotransferase (ALT/SGPT) 9, Alkaline Phosphatase 50, Total Protein 6.2L, Albumin 3.4, Procalcitonin 0.07 12/09/19 11:48: Glucometer 187H 12/09/19 15:53: Glucometer 334H 12/09/19 20:30: Glucometer 194H 12/10/19 05:23: White Blood Count 8.8, Red Blood Count 4.19L, Hemoglobin 11.5L, Hematocrit 39L, Mean Corpuscular Volume 92, Mean Corpuscular Hemoglobin 27, Mean Corpuscular Hemoglobin Concent 30L, Red Cell Distribution Width 15.2H, Platelet Count 248, Mean Platelet Volume 10.5H, Neutrophils (%) (Auto) 79H, Lymphocytes (%) (Auto) 12, Monocytes (%) (Auto) 7, Eosinophils (%) (Auto) 2, Basophils (%) (Auto) 1, Neutrophils # (Auto) 7.0, Lymphocytes # (Auto) 1.0, Monocytes # (Auto) 0.6, Eosinophils # (Auto) 0.2, Basophils # (Auto) 0.1, Sodium Level 142, Potassium Level 3.9, Chloride Level 109H, Carbon Dioxide Level 23, Anion Gap 10, Blood Urea Nitrogen 16, Creatinine 0.76, Estimat Glomerular Filtration Rate > 60, BUN/Creatinine Ratio 21, Glucose Level 163H, Calcium Level 8.6, Corrected Calcium 9.1, Total Bilirubin 0.5, Aspartate Amino Transf (AST/SGOT) 10, Alanine Aminotransferase (ALT/SGPT) 11, Alkaline Phosphatase 55, Total Protein 6.3L, Al bumin 3.4 12/10/19 05:54: Glucometer 153H 12/10/19 11:34: Glucometer 403*H 12/10/19 15:46: Glucometer 338H 12/10/19 20:10: Glucometer 281H 12/11/19 05:14: Glucometer 145H 12/11/19 05:45: White Blood Count 9.3, Red Blood Count 4.30L, Hemoglobin 11.8L, Hematocrit 40, Mean Corpuscular Volume 92, Mean Corpuscular Hemoglobin 27, Mean Corpuscular Hemoglobin Concent 30L, Red Cell Distribution Width 15.5H, Platelet Count 276, Mean Platelet Volume 10.1, Neutrophils (%) (Auto) 79H, Lymphocytes (%) (Auto) 11L, Monocytes (%) (Auto) 7, Eosinophils (%) (Auto) 3, Basophils (%) (Auto) 1, Neutrophils # (Auto) 7.4, Lymphocytes # (Auto) 1.0, Monocytes # (Auto) 0.7, Eosinophils # (Auto) 0.2, Basophils # (Auto) 0.1, Sodium Level 141, Potassium Level 4.1, Chloride Level 109H, Carbon Dioxide Level 24, Anion Gap 8, Blood Urea Nitrogen 15, Creatinine 0.72, Estimat Glomerular Filtration Rate > 60, BUN/Creatinine Ratio 21, Glucose Level 115H, Calcium Level 8.8, Corrected Calcium 9.2, Total Bilirubin 0.4, Aspartate Amino Transf (AST/SGOT) 11, Alanine Aminotransferase (ALT/SGPT) 11, Alkaline Phosphatase 54, Total Protein 6.5, Albumin 3.5 12/11/19 11:16: Glucometer 147H 12/11/19 15:48: Glucometer 272H 12/11/19 20:38: Glucometer 228H 12/12/19 05:10: Glucometer 136H 12/12/19 05:15: White Blood Count 9.3, Red Blood Count 4.41, Hemoglobin 12.2L, Hematocrit 41, Mean Corpuscular Volume 93, Mean Corpuscular Hemoglobin 28, Mean Corpuscular Hemoglobin Concent 30L, Red Cell Distribution Width 15.7H, Platelet Count 295, Mean Platelet Volume 10.0, Neutrophils (%) (Auto) 79H, Lymphocytes (%) (Auto) 9L , Monocytes (%) (Auto) 8, Eosinophils (%) (Auto) 3, Basophils (%) (Auto) 1, Neutrophils # (Auto) 7.3, Lymphocytes # (Auto) 0.9L, Monocytes # (Auto) 0.8, Eosinophils # (Auto) 0.3, Basophils # (Auto) 0.1, Sodium Level 146H, Potassium Level 4.4, Chloride Level 108H, Carbon Dioxide Level 27, Anion Gap 11, Blood Urea Nitrogen 19H, Creatinine 0.76, Estimat Glomerular Filtration Rate > 60, BUN/Creatinine Ratio 25, Glucose Level 140H, Calcium Level 9.0, Corrected Calcium 9.4, Total Bilirubin 0.4, Aspartate Amino Transf (AST/SGOT) 14, Alanine Aminotransferase (ALT/SGPT) 12, Alkaline Phosphatase 55, Total Protein 6.8, Albumin 3.5, Triglycerides Level 52 12/12/19 07:36: Urine Opiates Screen POSITIVEH, Urine Oxycodone Screen NEGATIVE, Urine Methadone Screen NEGATIVE, Urine Propoxyphene Screen NEGATIVE, Urine Barbiturates Screen NEGATIVE, Ur Tricyclic Antidepressants Screen NEGATIVE, Urine Phencyclidine Screen NEGATIVE, Urine Amphetamines Screen NEGATIVE, Urine Methamphetamines Screen NEGATIVE, Urine Benzodiazepines Screen POSITIVEH, Urine Cocaine Screen NEGATIVE, Urine Cannabinoids Screen POSITIVEH 12/12/19 13:47: Glucometer 100 12/12/19 14:20: Blood Gas Puncture Site RIGHT RADIAL, Blood Gas Patient Temperature 36.1, Arterial Blood pH 7.33*L, Arterial Blood Partial Pressure CO2 59H, Arterial Blood Partial Pressure O2 42L, Arterial Blood HCO3 31H, Arterial Blood Total CO2 32.8H, Arterial Blood Oxygen Saturation 74L, Arterial Blood Base Excess 5.1H, Mike Test POSITIVE, Blood Gas Ventilator Setting YES, Blood Gas Inspired Oxygen 85% 12/12/19 16:59: Glucometer 96 12/12/19 20:34: Glucometer 136H 12/12/19 23:23: Glucometer 111H 12/13/19 02:40: White Blood Count 7.5, Red Blood Count 3.95L, Hemoglobin 10.9L, Hematocrit 37L, Mean Corpuscular Volume 93, Mean Corpuscular Hemoglobin 28, Mean Corpuscular Hemoglobin Concent 30L, Red Cell Distribution Width 15.5H, Platelet Count 249, Mean Platelet Volume 10.0, Neutrophils (%) (Auto) 68, Lymphocytes (%) (Auto) 17, Monocytes (%) (Auto) 10, Eosinophils (%) (Auto) 4, Basophils (%) (Auto) 1, Neutrophils # (Auto) 5.1, Lymphocytes # (Auto) 1.3, Monocytes # (Auto) 0.7, E osinophils # (Auto) 0.3, Basophils # (Auto) 0.1, Blood Gas Puncture Site RIGHT RADIAL, Blood Gas Patient Temperature 36.0, Arterial Blood pH 7.40, Arterial Blood Partial Pressure CO2 52H, Arterial Blood Partial Pressure O2 89, Arterial Blood HCO3 32H, Arterial Blood Total CO2 33.9H, Arterial Blood Oxygen Saturation 98, Arterial Blood Base Excess 7.3H, Mike Test POSITIVE, Blood Gas Ventilator Setting YES, Blood Gas Inspired Oxygen 50, Sodium Level 148H, Potassium Level 3.8, Chloride Level 107, Carbon Dioxide Level 30, Anion Gap 11, Blood Urea Nitrogen 18, Creatinine 0.76, Estimat Glomerular Filtration Rate > 60, BUN/Creatinine Ratio 24, Glucose Level 123H, Calcium Level 8.7, Phosphorus Level 3.9, Magnesium Level 1.9 12/13/19 12:55: Coronavirus (COVID-19)(PCR) Negative 12/13/19 14:23: Glucometer 116H 12/13/19 15:20: Blood Gas Puncture Site RR, Blood Gas Patient Temperature 36.4, Arterial Blood pH 7.38, Arterial Blood Partial Pressure CO2 58H, Arterial Blood Partial Pressure O2 70L, Arterial Blood HCO3 34H, Arterial Blood Total CO2 35.4H, Arterial Blood Oxygen Saturation 94, Arterial Blood Base Excess 8.3H, Mike Test YES-POS, Blood Gas Ventilator Setting YES, Blood Gas Inspired Oxygen 40% 12/13/19 18:22: Glucometer 118H 12/13/19 23:44: Glucometer 91 12/14/19 02:54: White Blood Count 7.6, Red Blood Count 4.17L, Hemoglobin 11.6L, Hematocrit 39L, Mean Corpuscular Volume 93, Mean Corpuscular Hemoglobin 28, Mean Corpuscular Hemoglobin Concent 30L, Red Cell Distribution Width 15.5H, Platelet Count 254, Mean Platelet Volume 10.4, Neutrophils (%) (Auto) 71, Lymphocytes (%) (Auto) 11L , Monocytes (%) (Auto) 13H, Eosinophils (%) (Auto) 4, Basophils (%) (Auto) 1, Neutrophils # (Auto) 5.4, Lymphocytes # (Auto) 0.9L, Monocytes # (Auto) 1.0, Eosinophils # (Auto) 0.3, Basophils # (Auto) 0.1, Sodium Level 149H, Potassium Level 3.1L, Chloride Level 105, Carbon Dioxide Level 31, Anion Gap 13, Blood Urea Nitrogen 16, Creatinine 0.98, Estimat Glomerular Filtration Rate > 60, BUN/Creatinine Ratio 16, Glucose Level 86, Calcium Level 9.0, Phosphorus Level 5.2H, Magnesium Level 2.0, Triglycerides Level 91, Procalcitonin 0.12H 12/14/19 03:52: Blood Gas Puncture Site RIGHT RADIAL, Blood Gas Patient Temperature 36.6, Arterial Blood pH 7.41, Arterial Blood Partial Pressure CO2 54H, Arterial Blood Partial Pressure O2 73L, Arterial Blood HCO3 34H, Arterial Blood Total CO2 35.4H , Arterial Blood Oxygen Saturation 95, Arterial Blood Base Excess 8.7H, Mike Test YES-POS, Blood Gas Ventilator Setting YES, Blood Gas Inspired Oxygen 40% 12/14/19 11:24: Glucometer 80 12/14/19 17:45: Glucometer 129H 12/14/19 20:31: Glucometer 103 12/14/19 22:58: Glucometer 77 12/15/19 02:16: Glucometer 140H 12/15/19 02:25: Blood Gas Puncture Site RIGHT RADIAL, Blood Gas Patient Temperature 36.6, Arterial Blood pH 7.45H, Arterial Blood Partial Pressure CO2 51H, Arterial Blood Partial Pressure O2 67L, Arterial Blood HCO3 35H, Arterial Blood Total CO2 36.8H , Arterial Blood Oxygen Saturation 93L, Arterial Blood Base Excess 10.7H, Mike Test POSITIVE, Blood Gas Ventilator Setting YES, Blood Gas Inspired Oxygen 35 12/15/19 03:10: Blood Gas Puncture Site RIGHT RADIAL, Blood Gas Patient Temperature 36.6, Arterial Blood pH 7.33*L, Arterial Blood Partial Pressure CO2 66H, Arterial Blood Partial Pressure O2 56L, Arterial Blood HCO3 34H, Arterial Blood Total CO2 35.9H, Arterial Blood Oxygen Saturation 94, Arterial Blood Base Excess 7.8H, Mike Test POSITIVE, Blood Gas Ventilator Setting YES, Blood Gas Inspired Oxygen 35 12/15/19 06:20: Sodium Level 150H, Potassium Level 3.0L, Chloride Level 105, Carbon Dioxide Level 32, Anion Gap 13, Blood Urea Nitrogen 14, Creatinine 0.84, Estimat Glomerular Filtration Rate > 60, BUN/Creatinine Ratio 17, Glucose Level 61L, Calcium Level 9.2, Phosphorus Level 4.1, Magnesium Level 2.1, Triglycerides Level 121, Procalcitonin 0.10H 12/15/19 06:50: White Blood Count 7.8, Red Blood Count 4.29L, Hemoglobin 11.7L, Hematocrit 39L, Mean Corpuscular Volume 90, Mean Corpuscular Hemoglobin 27, Mean Corpuscular Hemoglobin Concent 30L, Red Cell Distribution Width 15.6H, Platelet Count 262, Mean Platelet Volume 9.9, Neutrophils (%) (Auto) 74, Lymphocytes (%) (Auto) 14, Monocytes (%) (Auto) 8, Eosinophils (%) (Auto) 3, Basophils (%) (Auto) 1, Neutrophils # (Auto) 5.7, Lymphocytes # (Auto) 1.1, Monocytes # (Auto) 0.7, Eosinophils # (Auto) 0.2, Basophils # (Auto) 0.1 12/15/19 07:44: Glucometer 187H 12/15/19 11:19: Blood Gas Puncture Site R.BRACHIAL, Blood Gas Patient Temperature 98.4, Arterial Blood pH 7.48H, Arterial Blood Partial Pressure CO2 48H, Arterial Blood Partial Pressure O2 71L, Arterial Blood HCO3 35H, Arterial Blood Total CO2 36.8H, Arterial Blood Oxygen Saturation 94, Arterial Blood Base Excess 11.1H, Mike Test YES-POS, Blood Gas Ventilator Setting YES, Blood Gas Inspired Oxygen 55% 12/15/19 11:46: Glucometer 72 12/15/19 17:25: Glucometer 77 12/15/19 17:36: Sodium Level 149H, Potassium Level 3.1L, Chloride Level 108H, Carbon Dioxide Level 30, Anion Gap 11, Blood Urea Nitrogen 14, Creatinine 0.79, Estimat Glomerular Filtration Rate > 60, BUN/Creatinine Ratio 18, Glucose Level 65L, Calcium Level 8.7 12/15/19 19:34: Glucometer 74 12/16/19 00:09: Glucometer 76 12/16/19 03:25: White Blood Count 7.8, Red Blood Count 4.29L, Hemoglobin 11.7L, Hematocrit 38L, Mean Corpuscular Volume 90, Mean Corpuscular Hemoglobin 27, Mean Corpuscular Hemoglobin Concent 31L, Red Cell Distribution Width 15.3H, Platelet Count 237, Mean Platelet Volume 10.1, Neutrophils (%) (Auto) 69, Lymphocytes (%) (Auto) 19, Monocytes (%) (Auto) 9, Eosinophils (%) (Auto) 3, Basophils (%) (Auto) 1, Neutrophils # (Auto) 5.4, Lymphocytes # (Auto) 1.5, Monocytes # (Auto) 0.7, Eosinophils # (Auto) 0.2, Basophils # (Auto) 0.1, Sodium Level 148H, Potassium Level 3.3L, Chloride Level 109H, Carbon Dioxide Level 25, Anion Gap 14, Blood Urea Nitrogen 16, Creatinine 0.80, Estimat Glomerular Filtration Rate > 60, BUN/Creatinine Ratio 20, Glucose Level 72, Calcium Level 8.4L, Phosphorus Level 3.3, Magnesium Level 1.9, Triglycerides Level 126 12/16/19 03:43: Blood Gas Puncture Site RIGHT RADIAL, Blood Gas Patient Temperature 36.7, Arterial Blood pH 7.47H, Arterial Blood Partial Pressure CO2 42, Arterial Blood Partial Pressure O2 69L, Arterial Blood HCO3 30H, Arterial Blood Total CO2 31.0, Arterial Blood Oxygen Saturation 93L, Arterial Blood Base Excess 5.9H, Mike Test POSITIVE, Blood Gas Ventilator Setting YES, Blood Gas Inspired Oxygen 25 12/16/19 11:26: Glucometer 96 12/16/19 17:34: Glucometer 123H 12/16/19 20:56: Glucometer 90 12/17/19 01:15: Glucometer 107 12/17/19 03:08: White Blood Count 9.0, Red Blood Count 4.22L, Hemoglobin 11.4L, Hematocrit 38L, Mean Corpuscular Volume 90, Mean Corpuscular Hemoglobin 27, Mean Corpuscular Hemoglobin Concent 30L, Red Cell Distribution Width 15.0H, Platelet Count 208, Mean Platelet Volume 10.3, Neutrophils (%) (Auto) 70, Lymphocytes (%) (Auto) 18, Monocytes (%) (Auto) 9, Eosinophils (%) (Auto) 3, Basophils (%) (Auto) 1, Neutrophils # (Auto) 6.3, Lymphocytes # (Auto) 1.6, Monocytes # (Auto) 0.8, Eosinophils # (Auto) 0.2, Basophils # (Auto) 0.1, Sodium Level 147H, Potassium Level 4.0, Chloride Level 107, Carbon Dioxide Level 23, Anion Gap 17H, Blood Urea Nitrogen 20H, Creatinine 0.86, Estimat Glomerular Filtration Rate > 60, BUN/Creatinine Ratio 23, Glucose Level 102, Calcium Level 8.6, Phosphorus Level 3.4, Magnesium Level 2.0, B-Type Natriuretic Peptide 842.5H 12/17/19 11:26: Glucometer 205H 12/17/19 15:25: Glucometer 221H 12/17/19 20:46: Glucometer 193H 12/18/19 03:19: Potassium Level 3.7 12/18/19 05:30: Glucometer 113H 12/18/19 05:45: Potassium Level 3.0L, White Blood Count 8.5, Red Blood Count 4.17L, Hemoglobin 11.3L, Hematocrit 37L, Mean Corpuscular Volume 89, Mean Corpuscular Hemoglobin 27, Mean Corpuscular Hemoglobin Concent 30L, Red Cell Distribution Width 15.1H, Platelet Count 215, Mean Platelet Volume 10.3, Neutrophils (%) (Auto) 70, Lymphocytes (%) (Auto) 18, Monocytes (%) (Auto) 9, Eosinophils (%) (Auto) 2, Basophils (%) (Auto) 1, Neutrophils # (Auto) 6.0, Lymphocytes # (Auto) 1.5, Monocytes # (Auto) 0.8, Eosinophils # (Auto) 0.2, Basophils # (Auto) 0.1, Sodium Level 146H, Chloride Level 106, Carbon Dioxide Level 28, Anion Gap 12, Blood Urea Nitrogen 17, Creatinine 0.82, Estimat Glomerular Filtration Rate > 60, BUN/Creatinine Ratio 21, Glucose Level 108H, Calcium Level 8.4L, Phosphorus Level 2.6, Magnesium Level 2.0 12/18/19 10:25: Glucometer 122H 12/18/19 15:53: Glucometer 214H 12/18/19 20:11: Glucometer 162H 12/19/19 05:15: White Blood Count 8.5, Red Blood Count 4.12L, Hemoglobin 11.2L, Hematocrit 37L, Mean Corpuscular Volume 90, Mean Corpuscular Hemoglobin 27, Mean Corpuscular Hemoglobin Concent 30L, Red Cell Distribution Width 15.3H, Platelet Count 228, Mean Platelet Volume 10.2, Neutrophils (%) (Auto) 70, Lymphocytes (%) (Auto) 17, Monocytes (%) (Auto) 8, Eosinophils (%) (Auto) 4, Basophils (%) (Auto) 1, Neutrophils # (Auto) 5.9, Lymphocytes # (Auto) 1.5, Monocytes # (Auto) 0.7, Eosinophils # (Auto) 0.3, Basophils # (Auto) 0.1, Sodium Level 144, Potassium Level 3.6, Chloride Level 108H, Carbon Dioxide Level 27, Anion Gap 9, Blood Urea Nitrogen 15, Creatinine 0.92, Estimat Glomerular Filtration Rate > 60, BUN/Creatinine Ratio 16, Glucose Level 84, Calcium Level 8.5, Phosphorus Level 2.1L, Magnesium Level 1.9 12/19/19 05:32: Glucometer 153H 12/19/19 10:59: Glucometer 184H 12/19/19 11:55: Urine Color ORANGE, Urine Clarity CLOUDY, Urine pH 8.0, Urine Specific Brandt 1.015L, Urine Protein TRACEH, Urine Glucose (UA) TRACEH, Urine Ketones NEGATIVE, Urine Nitrite NEGATIVE, Urine Bilirubin NEGATIVE, Urine Urobilinogen 4.0, Urine Leukocyte Esterase NEGATIVE, Urine RBC (Auto) 3+H, Urine RBC >100H, Urine WBC 0- 2, Urine Crystals NONE, Urine Bacteria TRACE, Urine Casts NONE, Urine Mucus NEGATIVE, Urine Culture Indicated NO 12/19/19 16:10: Glucometer 184H 12/19/19 20:29: Glucometer 224H 12/20/19 05:36: White Blood Count 7.9, Red Blood Count 4.20L, Hemoglobin 11.2L, Hematocrit 38L, Mean Corpuscular Volume 90, Mean Corpuscular Hemoglobin 27, Mean Corpuscular Hemoglobin Concent 30L, Red Cell Distribution Width 15.2H, Platelet Count 240, Mean Platelet Volume 10.4, Neutrophils (%) (Auto) 74, Lymphocytes (%) (Auto) 15, Monocytes (%) (Auto) 7, Eosinophils (%) (Auto) 4, Basophils (%) (Auto) 1, Neutrophils # (Auto) 5.8, Lymphocytes # (Auto) 1.2, Monocytes # (Auto) 0.5, Eosinophils # (Auto) 0.3, Basophils # (Auto) 0.0, Sodium Level 146H, Potassium Level 3.7, Chloride Level 110H, Carbon Dioxide Level 26, Anion Gap 10, Blood Urea Nitrogen 15, Creatinine 0.73, Estimat Glomerular Filtration Rate > 60, BUN/Creatinine Ratio 21, Glucose Level 100, Calcium Level 8.5, Phosphorus Level 2.7, Magnesium Level 2.1 12/20/19 06:21: Glucometer 95 12/20/19 10:42: Glucometer 377H 12/20/19 15:29: Glucometer 114H 12/20/19 20:40: Glucometer 110 12/21/19 05:42: Glucometer 125H 12/21/19 05:51: White Blood Count 9.1, Red Blood Count 4.11L, Hemoglobin 11.3L, Hematocrit 37L, Mean Corpuscular Volume 90, Mean Corpuscular Hemoglobin 27, Mean Corpuscular Hemoglobin Concent 31L, Red Cell Distribution Width 15.4H, Platelet Count 294, Mean Platelet Volume 10.2, Neutrophils (%) (Auto) 75, Lymphocytes (%) (Auto) 14, Monocytes (%) (Auto) 7, Eosinophils (%) (Auto) 3, Basophils (%) (Auto) 1, Neutrophils # (Auto) 6.8, Lymphocytes # (Auto) 1.3, Monocytes # (Auto) 0.6, Eosinophils # (Auto) 0.3, Basophils # (Auto) 0.1, Sodium Level 142, Potassium Level 3.9, Chloride Level 106, Carbon Dioxide Level 26, Anion Gap 10, Blood Urea Nitrogen 15, Creatinine 0.67, Estimat Glomerular Filtration Rate > 60, BUN/Creatinine Ratio 22, Glucose Level 96, Calcium Level 8.5, Phosphorus Level 2.7, Magnesium Level 2.1 12/21/19 11:13: Glucometer 125H 12/21/19 15:42: Glucometer 182H 12/21/19 20:41: Glucometer 145H 12/22/19 05:48: Glucometer 128H 12/22/19 06:58: White Blood Count 8.5, Red Blood Count 4.25L, Hemoglobin 11.6L, Hematocrit 38L, Mean Corpuscular Volume 90, Mean Corpuscular Hemoglobin 27, Mean Corpuscular Hemoglobin Concent 30L, Red Cell Distribution Width 15.2H, Platelet Count 324, Mean Platelet Volume 10.3, Neutrophils (%) (Auto) 77H, Lymphocytes (%) (Auto) 12, Monocytes (%) (Auto) 8, Eosinophils (%) (Auto) 2, Basophils (%) (Auto) 1, Neutrophils # (Auto) 6.6, Lymphocytes # (Auto) 1.0, Monocytes # (Auto) 0.6, Eosinophils # (Auto) 0.2, Basophils # (Auto) 0.1, Sodium Level 141, Potassium Level 4.3, Chloride Level 104, Carbon Dioxide Level 28, Anion Gap 9, Blood Urea Nitrogen 15, Creatinine 0.69, Estimat Glomerular Filtration Rate > 60, BUN/Creatinine Ratio 22, Glucose Level 134H, Calcium Level 8.8, Phosphorus Level 2.7, Magnesium Level 2.0 12/22/19 11:32: Glucometer 211H 12/22/19 15:40: Glucometer 98 12/22/19 20:22: Glucometer 160H 12/23/19 05:19: Glucometer 137H, White Blood Count 7.9, Red Blood Count 4.14L, Hemoglobin 11.1L, Hematocrit 37L, Mean Corpuscular Volume 90, Mean Corpuscular Hemoglobin 27, Mean Corpuscular Hemoglobin Concent 30L, Red Cell Distribution Width 15.6H, Platelet Count 362, Mean Platelet Volume 10.1, Neutrophils (%) (Auto) 77H, Lymphocytes (%) (Auto) 12, Monocytes (%) (Auto) 8, Eosinophils (%) (Auto) 2, Basophils (%) (Auto) 1, Neutrophils # (Auto) 6.0, Lymphocytes # (Auto) 0.9L, Monocytes # (Auto) 0.7, Eosinophils # (Auto) 0.2, Basophils # (Auto) 0.1, Sodium Level 142, Potassium Level 4.1, Chloride Level 103, Carbon Dioxide Level 29, Anion Gap 10, Blood Urea Nitrogen 19H, Creatinine 0.80, Estimat Glomerular Filtration Rate > 60, BUN/Creatinine Ratio 24, Glucose Level 134H, Calcium Level 8.6, Phosphorus Level 3.4, Magnesium Level 2.0, B-Type Natriuretic Peptide 1458.3H, Procalcitonin 0.05 12/23/19 08:45: Blood Gas Puncture Site RT RAD, Blood Gas Patient Temperature 37.0, Arterial Blood pH 7.41, Arterial Blood Partial Pressure CO2 51H, Arterial Blood Partial Pressure O2 39*L, Arterial Blood HCO3 31H, Arterial Blood Total CO2 32.8H, Arterial Blood Oxygen Saturation 64L, Arterial Blood Base Excess 6.6H, Mike Test YES-POS, Blood Gas Ventilator Setting NO, Blood Gas Inspired Oxygen 40% 12/23/19 11:35: Glucometer 195H 12/23/19 16:48: Glucometer 104 12/23/19 20:37: Glucometer 127H 12/24/19 05:19: Glucometer 164H 12/24/19 06:03: Sodium Level 141, Potassium Level 3.8, Chloride Level 104, Carbon Dioxide Level 28, Anion Gap 9, Blood Urea Nitrogen 16, Creatinine 0.78, Estimat Glomerular Filtration Rate > 60, BUN/Creatinine Ratio 21, Glucose Level 145H, Calcium Level 8.7, Magnesium Level 2.0 12/24/19 10:56: Glucometer 189H 12/24/19 15:59: Glucometer 157H 12/24/19 20:39: Glucometer 179H 12/25/19 05:20: Sodium Level 142, Potassium Level 3.9, Chloride Level 101, Carbon Dioxide Level 29, Anion Gap 12, Blood Urea Nitrogen 11, Creatinine 0.76, Estimat Glomerular Filtration Rate > 60, BUN/Creatinine Ratio 14, Glucose Level 131H, Calcium Level 9.1 12/25/19 10:38: Glucometer 186H Microbiology 12/12/19 Gram Stain - Final, Complete 12/12/19 Sputum Culture - Final, Complete Usual upper respiratory мария YEAST 12/06/19 Blood Culture - Final, Complete No growth 12/06/19 Urine Culture - Final, Complete NO GROWTH Pending Labs Microbiology Date/Time Source Procedure Growth Status 12/12/19 14:50 Sputum Endotracheal Gram Stain - Final Complete 12/12/19 14:50 Sputum Culture - Final Usual upper respiratory мария YEAST Complete 12/11/19 18:20 Nasal MRSA Screen - Final MRSA not isolated Complete 12/06/19 03:23 Nasal MRSA Screen - Final MRSA not isolated Complete 12/06/19 01:54 Peripheral Right Wrist Blood Culture - Final No growth Complete 12/06/19 01:50 Urine U Cath,Nos Urine Culture - Final NO GROWTH Complete 12/06/19 01:49 Peripheral Lt Ac Blood Culture - Final No growth Complete Laboratory Tests 12/06/19 01:46: Troponin I 0.049 12/06/19 01:49: White Blood Count 9.2, Red Blood Count 4.18, Hemoglobin 11.9, Hematocrit 38, Mean Corpuscular Volume 90, Mean Corpuscular Hemoglobin 29, Mean Corpuscular Hemoglobin Concent 32, Red Cell Distribution Width 15.6, Platelet Count 283, Mean Platelet Volume 10.6, Neutrophils (%) (Auto) 69, Lymphocytes (%) (Auto) 20, Monocytes (%) (Auto) 8, Eosinophils (%) (Auto) 2, Basophils (%) (Auto) 1, Neutrophils # (Auto) 6.4, Lymphocytes # (Auto) 1.8, Monocytes # (Auto) 0.8, Eosinophils # (Auto) 0.2, Basophils # (Auto) 0.1, Prothrombin Time 15.4, INR Comment 1.2, Activated Partial Thromboplast Time 30, Sodium Level 143, Potassium Level 4.2, Chloride Level 107, Carbon Dioxide Level 23, Anion Gap 13, Blood Urea Nitrogen 30, Creatinine 1.22, Estimat Glomerular Filtration Rate > 60, BUN/Creatinine Ratio 25, Glucose Level 156, Lactic Acid Level 2.14, Calcium Level 9.0, Corrected Calcium 9.2, Total Bilirubin 0.3, Aspartate Amino Transf (AST/SGOT) 12, Alanine Aminotransferase (ALT/SGPT) 14, Alkaline Phosphatase 56, Ammonia 35, B-Type Natriuretic Peptide 772.8, Total Protein 6.3, Albumin 3.7, Serum Alcohol < 10 12/06/19 01:50: Urine Color YELLOW, Urine Clarity CLEAR, Urine pH 5.5, Urine Specific Brandt >=1.030, Urine Protein TRACE, Urine Glucose (UA) NEGATIVE, Urine Ketones NEGATIVE, Urine Nitrite NEGATIVE, Urine Bilirubin NEGATIVE, Urine Urobilinogen 0.2, Urine Leukocyte Esterase NEGATIVE, Urine RBC (Auto) NEGATIVE, Urine RBC NONE, Urine WBC NONE, Urine Squamous Epithelial Cells RARE, Urine Crystals PRESENT, Urine Amorphous Sediment FEW SAUNDRA URATES, Urine Bacteria TRACE, Urine Casts PRESENT, Urine Hyaline Casts RARE, Urine Mucus SMALL, Urine Culture Indicated CULTURE PENDING, Urine Opiates Screen NEGATIVE, Urine Oxycodone Screen NEGATIVE, Urine Methadone Screen NEGATIVE, Urine Propoxyphene Screen NEGATIVE, Urine Barbiturates Screen NEGATIVE, Ur Tricyclic Antidepressants Screen NEGATI VE, Urine Phencyclidine Screen NEGATIVE, Urine Amphetamines Screen POSITIVE, Urine Methamphetamines Screen POSITIVE, Urine Benzodiazepines Screen NEGATIVE, Urine Cocaine Screen NEGATIVE, Urine Cannabinoids Screen POSITIVE 12/06/19 02:45: Lab Scanned Report Referred Lab Report 12/06/19 04:04: Lactic Acid Level 1.22 12/06/19 07:38: White Blood Count 11.1, Red Blood Count 4.29, Hemoglobin 11.9, Hematocrit 39, Mean Corpuscular Volume 91, Mean Corpuscular Hemoglobin 28, Mean Corpuscular Hemoglobin Concent 30, Red Cell Distribution Width 15.9, Platelet Count 258, Mean Platelet Volume 10.8, Neutrophils (%) (Auto) 75, Lymphocytes (%) (Auto) 15, Monocytes (%) (Auto) 7, Eosinophils (%) (Auto) 2, Basophils (%) (Auto) 1, Neutrophils # (Auto) 8.3, Lymphocytes # (Auto) 1.6, Monocytes # (Auto) 0.8, Eosinophils # (Auto) 0.3, Basophils # (Auto) 0.1, Sodium Level 143, Potassium Level 4.0, Chloride Level 110, Carbon Dioxide Level 22, Anion Gap 11, Blood Urea Nitrogen 30, Creatinine 1.07, Estimat Glomerular Filtration Rate > 60, BUN/Creatinine Ratio 28, Glucose Level 132, Calcium Level 8.5, Corrected Calcium 8.8, Total Bilirubin 0.3, Aspartate Amino Transf (AST/SGOT) 11, Alanine Aminotransferase (ALT/SGPT) 14, Alkaline Phosphatase 52, Troponin I 0.053, Total Protein 6.2, Albumin 3.6 12/06/19 11:42: Glucometer 240 12/06/19 15:25: Glucometer 130 12/06/19 20:51: Glucometer 210 12/07/19 03:00: White Blood Count 11.1, Red Blood Count 4.10, Hemoglobin 11.3, Hematocrit 38, Mean Corpuscular Volume 92, Mean Corpuscular Hemoglobin 28, Mean Corpuscular Hemoglobin Concent 30, Red Cell Distribution Width 16.1, Platelet Count 274, Mean Platelet Volume 10.5, Neutrophils (%) (Auto) 75, Lymphocytes (%) (Auto) 14, Monocytes (%) (Auto) 8, Eosinophils (%) (Auto) 3, Basophils (%) (Auto) 1, Neutrophils # (Auto) 8.4, Lymphocytes # (Auto) 1.5, Monocytes # (Auto) 0.9, Eosinophils # (Auto) 0.3, Basophils # (Auto) 0.1, Sodium Level 144, Potassium Level 3.9, Chloride Level 113, Carbon Dioxide Level 23, Anion Gap 8, Blood Urea Nitrogen 27, Creatinine 0.82, Estimat Glomerular Filtration Rate > 60, BUN/Creatinine Ratio 33, Glucose Level 121, Calcium Level 7.8 12/07/19 11:39: Glucometer 95 12/07/19 15:37: Glucometer 186 12/07/19 18:00: Blood Gas Puncture Site LT RAD, Blood Gas Patient Temperature 36.8, Arterial Blood pH 7.32, Arterial Blood Partial Pressure CO2 48, Arterial Blood Partial Pressure O2 72, Arterial Blood HCO3 24, Arterial Blood Total CO2 25.5, Arterial Blood Oxygen Saturation 92, Arterial Blood Base Excess -1.4, Mike Test YES-POS, Blood Gas Ventilator Setting NO, Blood Gas Inspired Oxygen NA 12/07/19 20:11: Glucometer 306 12/08/19 06:00: Glucometer 288 12/08/19 08:30: Vancomycin Level Trough 25.3 12/08/19 10:49: Glucometer 234 12/08/19 15:36: Glucometer 204 12/08/19 20:29: Glucometer 397 12/09/19 05:40: Glucometer 186 12/09/19 10:06: White Blood Count 10.0, Red Blood Count 4.00, Hemoglobin 11.0, Hematocrit 37, Mean Corpuscular Volume 94, Mean Corpuscular Hemoglobin 28, Mean Corpuscular Hemoglobin Concent 29, Red Cell Distribution Width 15.8, Platelet Count 246, Mean Platelet Volume 10.5, Neutrophils (%) (Auto) 78, Lymphocytes (%) (Auto) 11, Monocytes (%) (Auto) 9, Eosinophils (%) (Auto) 1, Basophils (%) (Auto) 1, Neutrophils # (Auto) 7.8, Lymphocytes # (Auto) 1.1, Monocytes # (Auto) 0.9, Eosinophils # (Auto) 0.1, Basophils # (Auto) 0.1, Sodium Level 142, Potassium Level 4.2, Chloride Level 110, Carbon Dioxide Level 23, Anion Gap 9, Blood Urea Nitrogen 17, Creatinine 0.80, Estimat Glomerular Filtration Rate > 60, BUN/Creatinine Ratio 21, Glucose Level 219, Lactic Acid Level 0.86, Calcium Level 8.4, Corrected Calcium 8.9, Total Bilirubin 0.4, Aspartate Amino Transf (AST/SGOT) 9, Alanine Aminotransferase (ALT/SGPT) 9, Alkaline Phosphatase 50, Total Protein 6.2, Albumin 3.4, Procalcitonin 0.07 12/09/19 11:48: Glucometer 187 12/09/19 15:53: Glucometer 334 12/09/19 20:30: Glucometer 194 12/10/19 05:23: White Blood Count 8.8, Red Blood Count 4.19, Hemoglobin 11.5, Hematocrit 39, Mean Corpuscular Volume 92, Mean Corpuscular Hemoglobin 27, Mean Corpuscular Hemoglobin Concent 30, Red Cell Distribution Width 15.2, Platelet Count 248, Mean Platelet Volume 10.5, Neutrophils (%) (Auto) 79, Lymphocytes (%) (Auto) 12, Monocytes (%) (Auto) 7, Eosinophils (%) (Auto) 2, Basophils (%) (Auto) 1, Neutrophils # (Auto) 7.0, Lymphocytes # (Auto) 1.0, Monocytes # (Auto) 0.6, Eosinophils # (Auto) 0.2, Basophils # (Auto) 0.1, Sodium Level 142, Potassium Level 3.9, Chloride Level 109, Carbon Dioxide Level 23, Anion Gap 10, Blood Urea Nitrogen 16, Creatinine 0.76, Estimat Glomerular Filtration Rate > 60, BUN/Creatinine Ratio 21, Glucose Level 163, Calcium Level 8.6, Corrected Calcium 9.1, Total Bilirubin 0.5, Aspartate Amino Transf (AST/SGOT) 10, Alanine Aminotransferase (ALT/SGPT) 11, Alkaline Phosphatase 55, Total Protein 6.3, Albumin 3.4 12/10/19 05:54: Glucometer 153 12/10/19 11:34: Glucometer 403 12/10/19 15:46: Glucometer 338 12/10/19 20:10: Glucometer 281 12/11/19 05:14: Glucometer 145 12/11/19 05:45: White Blood Count 9.3, Red Blood Count 4.30, Hemoglobin 11.8, Hematocrit 40, Mean Corpuscular Volume 92, Mean Corpuscular Hemoglobin 27, Mean Corpuscular Hemoglobin Concent 30, Red Cell Distribution Width 15.5, Platelet Count 276, Mean Platelet Volume 10.1, Neutrophils (%) (Auto) 79, Lymphocytes (%) (Auto) 11, Monocytes (%) (Auto) 7, Eosinophils (%) (Auto) 3, Basophils (%) (Auto) 1, Neutrophils # (Auto) 7.4, Lymphocytes # (Auto) 1.0, Monocytes # (Auto) 0.7, Eosinophils # (Auto) 0.2, Basophils # (Auto) 0.1, Sodium Level 141, Potassium Level 4.1, Chloride Level 109, Carbon Dioxide Level 24, Anion Gap 8, Blood Urea Nitrogen 15, Creatinine 0.72, Estimat Glomerular Filtration Rate > 60, BUN/Creatinine Ratio 21, Glucose Level 115, Calcium Level 8.8, Corrected Calcium 9.2, Total Bilirubin 0.4, Aspartate Amino Transf (AST/SGOT) 11, Alanine Aminotransferase (ALT/SGPT) 11, Alkaline Phosphatase 54, Total Protein 6.5, Albumin 3.5 12/11/19 11:16: Glucometer 147 12/11/19 15:48: Glucometer 272 12/11/19 20:38: Glucometer 228 12/12/19 05:10: Glucometer 136 12/12/19 05:15: White Blood Count 9.3, Red Blood Count 4.41, Hemoglobin 12.2, Hematocrit 41, Mean Corpuscular Volume 93, Mean Corpuscular Hemoglobin 28, Mean Corpuscular Hemoglobin Concent 30, Red Cell Distribution Width 15.7, Platelet Count 295, Mean Platelet Volume 10.0, Neutrophils (%) (Auto) 79, Lymphocytes (%) (Auto) 9, Monocytes (%) (Auto) 8, Eosinophils (%) (Auto) 3, Basophils (%) (Auto) 1, Neutrophils # (Auto) 7.3, Lymphocytes # (Auto) 0.9, Monocytes # (Auto) 0.8, Eosinophils # (Auto) 0.3, Basophils # (Auto) 0.1, Sodium Level 146, Potassium Level 4.4, Chloride Level 108, Carbon Dioxide Level 27, Anion Gap 11, Blood Urea Nitrogen 19, Creatinine 0.76, Estimat Glomerular Filtration Rate > 60, BUN/Creatinine Ratio 25, Glucose Level 140, Calcium Level 9.0, Corrected Calcium 9.4, Total Bilirubin 0.4, Aspartate Amino Transf (AST/SGOT) 14, Alanine Aminotransferase (ALT/SGPT) 12, Alkaline Phosphatase 55, Total Protein 6.8, Albumin 3.5, Triglycerides Level 52 12/12/19 07:36: Urine Opiates Screen POSITIVE, Urine Oxycodone Screen NEGATIVE, Urine Methadone Screen NEGATIVE, Urine Propoxyphene Screen NEGATIVE, Urine Barbiturates Screen NEGATIVE, Ur Tricyclic Antidepressants Screen NEGATIVE, Urine Phencyclidine Screen NEGATIVE, Urine Amphetamines Screen NEGATIVE, Urine Methamphetamines Screen NEGATIVE, Urine Benzodiazepines Screen POSITIVE, Urine Cocaine Screen NEGATIVE, Urine Cannabinoids Screen POSITIVE 12/12/19 13:47: Glucometer 100 12/12/19 14:20: Blood Gas Puncture Site RIGHT RADIAL, Blood Gas Patient Temperature 36.1, Arterial Blood pH 7.33, Arterial Blood Partial Pressure CO2 59, Arterial Blood Partial Pressure O2 42, Arterial Blood HCO3 31, Arterial Blood Total CO2 32.8, Arterial Blood Oxygen Saturation 74, Arterial Blood Base Excess 5.1, Mike Test POSITIVE, Blood Gas Ventilator Setting YES, Blood Gas Inspired Oxygen 85% 12/12/19 16:59: Glucometer 96 12/12/19 20:34: Glucometer 136 12/12/19 23:23: Glucometer 111 12/13/19 02:40: White Blood Count 7.5, Red Blood Count 3.95, Hemoglobin 10.9, Hematocrit 37, Mean Corpuscular Volume 93, Mean Corpuscular Hemoglobin 28, Mean Corpuscular Hemoglobin Concent 30, Red Cell Distribution Width 15.5, Platelet Count 249, Mean Platelet Volume 10.0, Neutrophils (%) (Auto) 68, Lymphocytes (%) (Auto) 17, Monocytes (%) (Auto) 10, Eosinophils (%) (Auto) 4, Basophils (%) (Auto) 1, Neutrophils # (Auto) 5.1, Lymphocytes # (Auto) 1.3, Monocytes # (Auto) 0.7, Eosinophils # (Auto) 0.3, Basophils # (Auto) 0.1, Blood Gas Puncture Site RIGHT RADIAL, Blood Gas Patient Temperature 36.0, Arterial Blood pH 7.40, Arterial B lood Partial Pressure CO2 52, Arterial Blood Partial Pressure O2 89, Arterial Blood HCO3 32, Arterial Blood Total CO2 33.9, Arterial Blood Oxygen Saturation 98, Arterial Blood Base Excess 7.3, Mike Test POSITIVE, Blood Gas Ventilator Setting YES, Blood Gas Inspired Oxygen 50, Sodium Level 148, Potassium Level 3.8, Chloride Level 107, Carbon Dioxide Level 30, Anion Gap 11, Blood Urea Nitrogen 18, Creatinine 0.76, Estimat Glomerular Filtration Rate > 60, BUN/Creatinine Ratio 24, Glucose Level 123, Calcium Level 8.7, Phosphorus Level 3.9, Magnesium Level 1.9 12/13/19 12:55: Coronavirus (COVID-19)(PCR) Negative 12/13/19 14:23: Glucometer 116 12/13/19 15:20: Blood Gas Puncture Site RR, Blood Gas Patient Temperature 36.4, Arterial Blood pH 7.38, Arterial Blood Partial Pressure CO2 58, Arterial Blood Partial Pressure O2 70, Arterial Blood HCO3 34, Arterial Blood Total CO2 35.4, Arterial Blood Oxygen Saturation 94, Arterial Blood Base Excess 8.3, Mike Test YES-POS, Blood Gas Ventilator Setting YES, Blood Gas Inspired Oxygen 40% 12/13/19 18:22: Glucometer 118 12/13/19 23:44: Glucometer 91 12/14/19 02:54: White Blood Count 7.6, Red Blood Count 4.17, Hemoglobin 11.6, Hematocrit 39, Mean Corpuscular Volume 93, Mean Corpuscular Hemoglobin 28, Mean Corpuscular Hemoglobin Concent 30, Red Cell Distribution Width 15.5, Platelet Count 254, Mean Platelet Volume 10.4, Neutrophils (%) (Auto) 71, Lymphocytes (%) (Auto) 11, Monocytes (%) (Auto) 13, Eosinophils (%) (Auto) 4, Basophils (%) (Auto) 1, Neutrophils # (Auto) 5.4, Lymphocytes # (Auto) 0.9, Monocytes # (Auto) 1.0, Eosinophils # (Auto) 0.3, Basophils # (Auto) 0.1, Sodium Level 149, Potassium Level 3.1, Chloride Level 105, Carbon Dioxide Level 31, Anion Gap 13, Blood Urea Nitrogen 16, Creatinine 0.98, Estimat Glomerular Filtration Rate > 60, BUN/Creatinine Ratio 16, Glucose Level 86, Calcium Level 9.0, Phosphorus Level 5.2, Magnesium Level 2.0, Triglycerides Level 91, Procalcitonin 0.12 12/14/19 03:52: Blood Gas Puncture Site RIGHT RADIAL, Blood Gas Patient Temperature 36.6, Arterial Blood pH 7.41, Arterial Blood Partial Pressure CO2 54, Arterial Blood Partial Pressure O2 73, Arterial Blood HCO3 34, Arterial Blood Total CO2 35.4, Arterial Blood Oxygen Saturation 95, Arterial Blood Base Excess 8.7, Mike Test YES-POS, Blood Gas Ventilator Setting YES, Blood Gas Inspired Oxygen 40% 12/14/19 11:24: Glucometer 80 12/14/19 17:45: Glucometer 129 12/14/19 20:31: Glucometer 103 12/14/19 22:58: Glucometer 77 12/15/19 02:16: Glucometer 140 12/15/19 02:25: Blood Gas Puncture Site RIGHT RADIAL, Blood Gas Patient Temperature 36.6, Arterial Blood pH 7.45, Arterial Blood Partial Pressure CO2 51, Arterial Blood Partial Pressure O2 67, Arterial Blood HCO3 35, Arterial Blood Total CO2 36.8, Arterial Blood Oxygen Saturation 93, Arterial Blood Base Excess 10.7, Mike Test POSITIVE, Blood Gas Ventilator Setting YES, Blood Gas Inspired Oxygen 35 12/15/19 03:10: Blood Gas Puncture Site RIGHT RADIAL, Blood Gas Patient Temperature 36.6, Arterial Blood pH 7.33, Arterial Blood Partial Pressure CO2 66, Arterial Blood Partial Pressure O2 56, Arterial Blood HCO3 34, Arterial Blood Total CO2 35.9, Arterial Blood Oxygen Saturation 94, Arterial Blood Base Excess 7.8, Mike Test POSITIVE, Blood Gas Ventilator Setting YES, Blood Gas Inspired Oxygen 35 12/15/19 06:20: Sodium Level 150, Potassium Level 3.0, Chloride Level 105, Carbon Dioxide Level 32, Anion Gap 13, Blood Urea Nitrogen 14, Creatinine 0.84, Estimat Glomerular Filtration Rate > 60, BUN/Creatinine Ratio 17, Glucose Level 61, Calcium Level 9.2, Phosphorus Level 4.1, Magnesium Level 2.1, Triglycerides Level 121, Procalcitonin 0.10 12/15/19 06:50: White Blood Count 7.8, Red Blood Count 4.29, Hemoglobin 11.7, Hematocrit 39, Mean Corpuscular Volume 90, Mean Corpuscular Hemoglobin 27, Mean Corpuscular Hemoglobin Concent 30, Red Cell Distribution Width 15.6, Platelet Count 262, Mean Platelet Volume 9.9, Neutrophils (%) (Auto) 74, Lymphocytes (%) (Auto) 14, Monocytes (%) (Auto) 8, Eosinophils (%) (Auto) 3, Basophils (%) (Auto) 1, Neutrophils # (Auto) 5.7, Lymphocytes # (Auto) 1.1, Monocytes # (Auto) 0.7, Eosinophils # (Auto) 0.2, Basophils # (Auto) 0.1 12/15/19 07:44: Glucometer 187 12/15/19 11:19: Blood Gas Puncture Site R.BRACHIAL, Blood Gas Patient Temperature 98.4, Arterial Blood pH 7.48, Arterial Blood Partial Pressure CO2 48, Arterial Blood Partial Pressure O2 71, Arterial Blood HCO3 35, Arterial Blood Total CO2 36.8, Arterial Blood Oxygen Saturation 94, Arterial Blood Base Excess 11.1, Mike Test YES-POS, Blood Gas Ventilator Setting YES, Blood Gas Inspired Oxygen 55% 12/15/19 11:46: Glucometer 72 12/15/19 17:25: Glucometer 77 12/15/19 17:36: Sodium Level 149, Potassium Level 3.1, Chloride Level 108, Carbon Dioxide Level 30, Anion Gap 11, Blood Urea Nitrogen 14, Creatinine 0.79, Estimat Glomerular Filtration Rate > 60, BUN/Creatinine Ratio 18, Glucose Level 65, Calcium Level 8.7 12/15/19 19:34: Glucometer 74 12/16/19 00:09: Glucometer 76 12/16/19 03:25: White Blood Count 7.8, Red Blood Count 4.29, Hemoglobin 11.7, Hematocrit 38, Mean Corpuscular Volume 90, Mean Corpuscular Hemoglobin 27, Mean Corpuscular Hemoglobin Concent 31, Red Cell Distribution Width 15.3, Platelet Count 237, Mean Platelet Volume 10.1, Neutrophils (%) (Auto) 69, Lymphocytes (%) (Auto) 19, Monocytes (%) (Auto) 9, Eosinophils (%) (Auto) 3, Basophils (%) (Auto) 1, Neutrophils # (Auto) 5.4, Lymphocytes # (Auto) 1.5, Monocytes # (Auto) 0.7, Eosinophils # (Auto) 0.2, Basophils # (Auto) 0.1, Sodium Level 148, Potassium Le kishan 3.3, Chloride Level 109, Carbon Dioxide Level 25, Anion Gap 14, Blood Urea Nitrogen 16, Creatinine 0.80, Estimat Glomerular Filtration Rate > 60, BUN/Creatinine Ratio 20, Glucose Level 72, Calcium Level 8.4, Phosphorus Level 3.3, Magnesium Level 1.9, Triglycerides Level 126 12/16/19 03:43: Blood Gas Puncture Site RIGHT RADIAL, Blood Gas Patient Temperature 36.7, Arterial Blood pH 7.47, Arterial Blood Partial Pressure CO2 42, Arterial Blood Partial Pressure O2 69, Arterial Blood HCO3 30, Arterial Blood Total CO2 31.0, Arterial Blood Oxygen Saturation 93, Arterial Blood Base Excess 5.9, Mike Test POSITIVE, Blood Gas Ventilator Setting YES, Blood Gas Inspired Oxygen 25 12/16/19 11:26: Glucometer 96 12/16/19 17:34: Glucometer 123 12/16/19 20:56: Glucometer 90 12/17/19 01:15: Glucometer 107 12/17/19 03:08: White Blood Count 9.0, Red Blood Count 4.22, Hemoglobin 11.4, Hematocrit 38, Mean Corpuscular Volume 90, Mean Corpuscular Hemoglobin 27, Mean Corpuscular Hemoglobin Concent 30, Red Cell Distribution Width 15.0, Platelet Count 208, Mean Platelet Volume 10.3, Neutrophils (%) (Auto) 70, Lymphocytes (%) (Auto) 18, Monocytes (%) (Auto) 9, Eosinophils (%) (Auto) 3, Basophils (%) (Auto) 1, Neutrophils # (Auto) 6.3, Lymphocytes # (Auto) 1.6, Monocytes # (Auto) 0.8, Eosinophils # (Auto) 0.2, Basophils # (Auto) 0.1, Sodium Level 147, Potassium Level 4.0, Chloride Level 107, Carbon Dioxide Level 23, Anion Gap 17, Blood Urea Nitrogen 20, Creatinine 0.86, Estimat Glomerular Filtration Rate > 60, BUN/Creatinine Ratio 23, Glucose Level 102, Calcium Level 8.6, Phosphorus Level 3.4, Magnesium Level 2.0, B-Type Natriuretic Peptide 842.5 12/17/19 11:26: Glucometer 205 12/17/19 15:25: Glucometer 221 12/17/19 20:46: Glucometer 193 12/18/19 03:19: Potassium Level 3.7 12/18/19 05:30: Glucometer 113 12/18/19 05:45: Potassium Level 3.0, White Blood Count 8.5, Red Blood Count 4.17, Hemoglobin 11.3, Hematocrit 37, Mean Corpuscular Volume 89, Mean Corpuscular Hemoglobin 27, Mean Corpuscular Hemoglobin Concent 30, Red Cell Distribution Width 15.1, Platelet Count 215, Mean Platelet Volume 10.3, Neutrophils (%) (Auto) 70, Lymphocytes (%) (Auto) 18, Monocytes (%) (Auto) 9, Eosinophils (%) (Auto) 2, Basophils (%) (Auto) 1, Neutrophils # (Auto) 6.0, Lymphocytes # (Auto) 1.5, Monocytes # (Auto) 0.8, Eosinophils # (Auto) 0.2, Basophils # (Auto) 0.1, Sodium Level 146, Chloride Level 106, Carbon Dioxide Level 28, Anion Gap 12, Blood Urea Nitrogen 17, Creatinine 0.82, Estimat Glomerular Filtration Rate > 60, BUN/Creatinine Ratio 21, Glucose Level 108, Calcium Level 8.4, Phosphorus Level 2.6, Magnesium Level 2.0 12/18/19 10:25: Glucometer 122 12/18/19 15:53: Glucometer 214 12/18/19 20:11: Glucometer 162 12/19/19 05:15: White Blood Count 8.5, Red Blood Count 4.12, Hemoglobin 11.2, Hematocrit 37, Mean Corpuscular Volume 90, Mean Corpuscular Hemoglobin 27, Mean Corpuscular Hemoglobin Concent 30, Red Cell Distribution Width 15.3, Platelet Count 228, Mean Platelet Volume 10.2, Neutrophils (%) (Auto) 70, Lymphocytes (%) (Auto) 17, Monocytes (%) (Auto) 8, Eosinophils (%) (Auto) 4, Basophils (%) (Auto) 1, Neutrophils # (Auto) 5.9, Lymphocytes # (Auto) 1.5, Monocytes # (Auto) 0.7, Eosinophils # (Auto) 0.3, Basophils # (Auto) 0.1, Sodium Level 144, Potassium Level 3.6, Chloride Level 108, Carbon Dioxide Level 27, Anion Gap 9, Blood Urea Nitrogen 15, Creatinine 0.92, Estimat Glomerular Filtration Rate > 60, BUN/Creatinine Ratio 16, Glucose Level 84, Calcium Level 8.5, Phosphorus Level 2.1, Magnesium Level 1.9 12/19/19 05:32: Glucometer 153 12/19/19 10:59: Glucometer 184 12/19/19 11:55: Urine Color ORANGE, Urine Clarity CLOUDY, Urine pH 8.0, Urine Specific Brandt 1.015, Urine Protein TRACE, Urine Glucose (UA) TRACE, Urine Ketones NEGATIVE, Urine Nitrite NEGATIVE, Urine Bilirubin NEGATIVE, Urine Urobilinogen 4.0, Urine Leukocyte Esterase NEGATIVE, Urine RBC (Auto) 3+, Urine RBC >100, Urine WBC 0-2, Urine Crystals NONE, Urine Bacteria TRACE, Urine Casts NONE, Urine Mucus NEGATIVE, Urine Culture Indicated NO 12/19/19 16:10: Glucometer 184 12/19/19 20:29: Glucometer 224 12/20/19 05:36: White Blood Count 7.9, Red Blood Count 4.20, Hemoglobin 11.2, Hematocrit 38, Mean Corpuscular Volume 90, Mean Corpuscular Hemoglobin 27, Mean Corpuscular Hemoglobin Concent 30, Red Cell Distribution Width 15.2, Platelet Count 240, Mean Platelet Volume 10.4, Neutrophils (%) (Auto) 74, Lymphocytes (%) (Auto) 15, Monocytes (%) (Auto) 7, Eosinophils (%) (Auto) 4, Basophils (%) (Auto) 1, Neutrophils # (Auto) 5.8, Lymphocytes # (Auto) 1.2, Monocytes # (Auto) 0.5, Eosinophils # (Auto) 0.3, Basophils # (Auto) 0.0, Sodium Level 146, Potassium Level 3.7, Chloride Level 110, Carbon Dioxide Level 26, Anion Gap 10, Blood Urea Nitrogen 15, Creatinine 0.73, Estimat Glomerular Filtration Rate > 60, BUN/Creatinine Ratio 21, Glucose Level 100, Calcium Level 8.5, Phosphorus Level 2.7, Magnesium Level 2.1 12/20/19 06:21: Glucometer 95 12/20/19 10:42: Glucometer 377 12/20/19 15:29: Glucometer 114 12/20/19 20:40: Glucometer 110 12/21/19 05:42: Glucometer 125 12/21/19 05:51: White Blood Count 9.1, Red Blood Count 4.11, Hemoglobin 11.3, Hematocrit 37, Mean Corpuscular Volume 90, Mean Corpuscular Hemoglobin 27, Mean Corpuscular Hemoglobin Concent 31, Red Cell Distribution Width 15.4, Platelet Count 294, Mean Platelet Volume 10.2, Neutrophils (%) (Auto) 75, Lymphocytes (%) (Auto) 14, Monocytes (%) (Auto) 7, Eosinophils (%) (Auto) 3, Basophils (%) (Auto) 1, Neutrophils # (Auto) 6.8, Lymphocytes # (Auto) 1.3, Monocytes # (Auto) 0.6, Eosinophils # (Auto) 0.3, Basophils # (Auto) 0.1, Sodium Level 142, Potassium Level 3.9, Chloride Level 106, Carbon Dioxide Level 26, Anion Gap 10, Blood Urea Nitrogen 15, Creatinine 0.67, Estimat Glomerular Filtration Rate > 60, BUN/Creatinine Ratio 22, Glucose Level 96, Calcium Level 8.5, Phosphorus Level 2.7, Magnesium Level 2.1 12/21/19 11:13: Glucometer 125 12/21/19 15:42: Glucometer 182 12/21/19 20:41: Glucometer 145 12/22/19 05:48: Glucometer 128 12/22/19 06:58: White Blood Count 8.5, Red Blood Count 4.25, Hemoglobin 11.6, Hematocrit 38, Mean Corpuscular Volume 90, Mean Corpuscular Hemoglobin 27, Mean Corpuscular Hemoglobin Concent 30, Red Cell Distribution Width 15.2, Platelet Count 324, Mean Platelet Volume 10.3, Neutrophils (%) (Auto) 77, Lymphocytes (%) (Auto) 12, Monocytes (%) (Auto) 8, Eosinophils (%) (Auto) 2, Basophils (%) (Auto) 1, Neutrophils # (Auto) 6.6, Lymphocytes # (Auto) 1.0, Monocytes # (Auto) 0.6, Eosinophils # (Auto) 0.2, Basophils # (Auto) 0.1, Sodium Level 141, Potassium Level 4.3, Chloride Level 104, Carbon Dioxide Level 28, Anion Gap 9, Blood Urea Nitrogen 15, Creatinine 0.69, Estimat Glomerular Filtration Rate > 60, BUN/Creatinine Ratio 22, Glucose Level 134, Calcium Level 8.8, Phosphorus Level 2.7, Magnesium Level 2.0 12/22/19 11:32: Glucometer 211 12/22/19 15:40: Glucometer 98 12/22/19 20:22: Glucometer 160 12/23/19 05:19: Glucometer 137, White Blood Count 7.9, Red Blood Count 4.14, Hemoglobin 11.1, Hematocrit 37, Mean Corpuscular Volume 90, Mean Corpuscular Hemoglobin 27, Mean Corpuscular Hemoglobin Concent 30, Red Cell Distribution Width 15.6, Platelet Count 362, Mean Platelet Volume 10.1, Neutrophils (%) (Auto) 77, Lymphocytes (%) (Auto) 12, Monocytes (%) (Auto) 8, Eosinophils (%) (Auto) 2, Basophils (%) (Auto) 1, Neutrophils # (Auto) 6.0, Lymphocytes # (Auto) 0.9, Monocytes # (Auto) 0.7, Eosinophils # (Auto) 0.2, Basophils # (Auto) 0.1, Sodium Level 142, P otassium Level 4.1, Chloride Level 103, Carbon Dioxide Level 29, Anion Gap 10, Blood Urea Nitrogen 19, Creatinine 0.80, Estimat Glomerular Filtration Rate > 60, BUN/Creatinine Ratio 24, Glucose Level 134, Calcium Level 8.6, Phosphorus Level 3.4, Magnesium Level 2.0, B-Type Natriuretic Peptide 1458.3, Procalcitonin 0.05 12/23/19 08:45: Blood Gas Puncture Site RT RAD, Blood Gas Patient Temperature 37.0, Arterial Blood pH 7.41, Arterial Blood Partial Pressure CO2 51, Arterial Blood Partial Pressure O2 39, Arterial Blood HCO3 31, Arterial Blood Total CO2 32.8, Arterial Blood Oxygen Saturation 64, Arterial Blood Base Excess 6.6, Mike Test YES-POS, Blood Gas Ventilator Setting NO, Blood Gas Inspired Oxygen 40% 12/23/19 11:35: Glucometer 195 12/23/19 16:48: Glucometer 104 12/23/19 20:37: Glucometer 127 12/24/19 05:19: Glucometer 164 12/24/19 06:03: Sodium Level 141, Potassium Level 3.8, Chloride Level 104, Carbon Dioxide Level 28, Anion Gap 9, Blood Urea Nitrogen 16, Creatinine 0.78, Estimat Glomerular Filtration Rate > 60, BUN/Creatinine Ratio 21, Glucose Level 145, Calcium Level 8.7, Magnesium Level 2.0 12/24/19 10:56: Glucometer 189 12/24/19 15:59: Glucometer 157 12/24/19 20:39: Glucometer 179 12/25/19 05:20: Sodium Level 142, Potassium Level 3.9, Chloride Level 101, Carbon Dioxide Level 29, Anion Gap 12, Blood Urea Nitrogen 11, Creatinine 0.76, Estimat Glomerular Filtration Rate > 60, BUN/Creatinine Ratio 14, Glucose Level 131, Calcium Level 9.1 12/25/19 10:38: Glucometer 186 Discharge Home Medications: Active Scripts Active Lancet 30G-Glucose Test Strip (Lancets/Blood Glucose Strips) 1 Each Combo..pkg E ach ACHS Blood Lancets (Lancets) 1 Each Each Each [facility] Blood Glucose Meter (Blood-Glucose Meter) 1 Each Each Each [facility] Advocate Pen Needle (Pen Needle, Diabetic) 1 Each Dis.needle Each [facility] Novolog Flexpen (Insulin Aspart) 300 Units/3 Ml Solution 4 Units SQ AC Levemir Flextouch (Insulin Detemir) 100 Unit/1 Ml Insuln.pen 16 Unit SQ HS Famotidine 20 Mg Tablet 20 Mg PO BID Furosemide 40 Mg Tablet 80 Mg PO DAILY Hydrocodone-Acetamin 5-325 mg (Hydrocodone/Acetaminophen) 1 Each Tablet 1 Tab PO Q4H PRN Losartan Potassium 25 Mg Tablet 25 Mg PO DAILY Diltiazem HCl 60 Mg Tablet 60 Mg PO Q6HR Carvedilol 3.125 Mg Tablet 3.125 Mg PO BID Iprat-Albut 0.5-3(2.5) mg/3 ml (Ipratropium/Albuterol Sulfate) 3 Ml Ampul.neb 3 Ml INH RTQ6HR Nicoderm Cq (Nicotine) 1 Each Patch.td24 21 Mg TD DAILY@0900 Eliquis (Apixaban) 5 Mg Tablet 5 Mg PO BID Clopidogrel (Clopidogrel Bisulfate) 75 Mg Tablet 75 Mg PO DAILY Potassium Chloride 20 Meq Tab.er.prt 20 Meq PO BID Atorvastatin Calcium 80 Mg Tablet 80 Mg PO HS Instructions to patient/family Please see electronic discharge instructions given to patient. Diagnosis/Problems Diagnosis/Problems (1) Ventilator dependence (2) Congestive heart failure Qualifiers: Qualified Codes: I50.20 - Unspecified systolic (congestive) heart failure (3) Tachycardia Status: Resolved Resolution Date/Time: 12/16/19 @ 13:24 (4) Pneumonia (5) Methamphetamine abuse (6) Noncompliance Clinical Quality Measures DVT/VTE Risk/Contraindication: Risk Factor Score Per Nursin RFS Level Per Nursing on Admit: 4+=Very High GAYATRI GILL DO Dec 25, 2019 10:29
--- NOTE | 2019-12-25 10:43 | Occupational Ther Daily Note ---
OT Current Status-Daily Note Subjective Pt alert, sitting in recliner. Pt states that he is doing and feeling better. Pt agrees to therapy. Mental Status/Objective Patient Orientation: Person, Place, Time, Situation Attachments: IV ADL-Treatment Pt states that he has already taken a bath and used the restroom. Pt also states that he is ambulating without walker and is walking to/from bathroom. Therapy Code Descriptions/Definitions Functional Hermann Measure: 0=Not Assessed/NA 4=Minimal Assistance 1=Total Assistance 5=Supervision or Setup 2=Maximal Assistance 6=Modified Hermann 3=Moderate Assistance 7=Complete IndependenceSCALE: Activities may be completed with or without assistive devices. 2-Htjlqjureo-irorgrh completes the activity by him/herself with no assistance from a helper. 5-Set-up or Clean-up Assistance-helper sets up or cleans up; patient completes activity. Marty assists only prior to or following the activity. 4-Supervision or Touching Assistance-helper provides verbal cues and/or touching/steadying and/or contact guard assistance as patient completes activity. Assistance may be provided throughout the activity or intermittently. 3-Partial/Moderate Assistance-helper does LESS THAN HALF the effort. Marty lifts, holds or supports trunk or limbs, but provides less than half the effort. 2-Substantial/Maximal Assistance-helper does MORE THAN HALF the effort. Marty lifts or holds trunk or limbs and provides more than half the effort. 6-Bgautrgay-ozjjtb does ALL the effort. Patient does none of the effort to complete the activity. Or, the assistance of 2 or more helpers is required for the patient to complete the activity. If activity was not attempted, code reason: 7-Patient Refused. 9-Not Applicable-not attempted and the patient did not perform the activity before the current illness, exacerbation or injury. 10-Not Attempted due to Environmental Limitations-(lack of equipment, weather restraints, etc.). 88-Not Attempted due to Medical Conditions or Safety Concerns. Other Treatment Pt agrees to B UE strengthening exercises against gravity. Skilled instruction given for technique and modifications when necessary. Pt fatigued quickly with R UE during first set of exercises. Pt completed B UE in all planes. 3 sets 5 reps. After session, pt sitting in recliner with call light/phone in reach. All needs met in room. OT Detention Goals [place] Goals Time Frame: Dec 26, 2019 Eating (QC): 6 Oral Hygiene (QC): 6 Toileting Hygiene (QC): 3 Shower/Bathe Self (QC): 3 Upper Body Dressing (QC): 6 Lower Body Dressing (QC): 3 On/Off Footwear (QC): 6 Additional Goals: 1-Demonstrate ADL Tasks, 2-Verbalize Understanding, 3- ImproveStrength/Jay 1=Demonstrate adherence to instructed precautions during ADL tasks. 2=Patient will verbalize/demonstrate understanding of assistive devices/modifications for ADL. 3=Patient will improve strength/tolerance for activity to enable patient to perform ADL's. OT Education/Plan Problem List/Assessment Assessment: Decreased UE Strength Discharge Recommendations Plan/Recommendations: Continue POC Treatment Plan/Plan of Care Patient would benefit from OT for education, treatment and training to promote independence in ADL's, mobility, safety and/or upper extremity function for ADL's. Plan of Care: ADL Retraining, Caregiver Training, Functional Mobility, Group Exercise/Act as Ind, UE Funct Exercise/Act, W/C Management Training Treatment Duration: Dec 26, 2019 Frequency: 5 times per week Estimated Hrs Per Day: .25 hour per day Agreement: Yes Rehab Potential: Fair Time/GCodes Start Time: 09:45 Stop Time: 10:00 Total Time Billed (hr/min): 15 Billed Treatment Time 1 visit-EX 1 (15 min) BENNY LAWTON Dec 25, 2019 10:43
--- NOTE | 2019-12-25 11:40 | NUR ---
PT QUALIFIED FOR 3L OF O2 AT REST AND DURING EXERCISE. WHILE ON RA TRIAL PT DROPPED TO 85%. PT WAS PLACED ON 3L AND SPO2 RETURNED TO 91%. PT WAS WALKED TO MAKE SURE SPO2 STAYED ABOVE 88%. Addendum: 12/25/19 at 1140 by CLYDE BOOKER RT Amended: Links added.
[2019-12-25] MEDS ORDERED: LANC1COM6 MC (11:45)
[2019-12-25] MEDS ORDERED: LANC-954 MC (11:45)
[2019-12-25] MEDS ORDERED: BLOO1EAC87 MC (11:45)
[2019-12-25 11:46] VITALS: BP 150/98
--- NOTE | 2019-12-25 11:46 | Discharge Summary ---
Discharge Summary Hospital Course Was the Problem List Reviewed?: Yes Problems/Dx: (1) Ventilator dependence (2) Congestive heart failure Qualifiers: Qualified Codes: I50.20 - Unspecified systolic (congestive) heart failure (3) Tachycardia Status: Resolved (4) Pneumonia (5) Methamphetamine abuse (6) Noncompliance Hospital Course Date of Admission: Dec 06, 2019 at 02:45 Admission Diagnosis : Family Physician/Provider: No,Local Physician Date of Discharge: 12/25/19 Discharge Diagnosis: Scrotal cellulitis, CHF, VDRF, AF, DM, CRI, meth use, hypoxia Hospital Course: Hospital Course: Pt had an uneventful hospital course. She was admitted, swabbed for Covid and awaited that result but she was started on acute coronary syndrome protocol meds along with cardiology consultation. Covid swab was negative. Pt did have elevated troponin with chest pain and ST changes on EKG on admit. Pt underwent cardiac catheterization revealing coronary stenosis of the right RCA, stent was deployed, had an uncomplicated hospital course and was discharged home with smoking cessation instructions and cardiac meds per protocol. Labs and Pending Lab Test: Laboratory Tests 12/24/19 15:59: Glucometer 157H 12/24/19 20:39: Glucometer 179H 12/25/19 05:20: Sodium Level 142, Potassium Level 3.9, Chloride Level 101, Carbon Dioxide Level 29, Anion Gap 12, Blood Urea Nitrogen 11, Creatinine 0.76, Estimat Glomerular Filtration Rate > 60, BUN/Creatinine Ratio 14, Glucose Level 131H, Calcium Level 9.1 12/25/19 10:38: Glucometer 186H Microbiology 12/12/19 Gram Stain - Final, Complete 12/12/19 Sputum Culture - Final, Complete Usual upper respiratory мария YEAST 12/06/19 Blood Culture - Final, Complete No growth 12/06/19 Urine Culture - Final, Complete NO GROWTH Home Meds Active Lancet 30G-Glucose Test Strip (Lancets/Blood Glucose Strips) 1 Each Combo..pkg Each [facility] Blood Lancets (Lancets) 1 Each Each Each [facility] Blood Glucose Meter (Blood-Glucose Meter) 1 Each Each Each [facility] Advocate Pen Needle (Pen Needle, Diabetic) 1 Each Dis.needle Each [facility] Novolog Flexpen (Insulin Aspart) 300 Units/3 Ml Solution 4 Units SQ AC Levemir Flextouch (Insulin Detemir) 100 Unit/1 Ml Insuln.pen 16 Unit SQ HS Famotidine 20 Mg Tablet 20 Mg PO BID Furosemide 40 Mg Tablet 80 Mg PO DAILY Hydrocodone-Acetamin 5-325 mg (Hydrocodone/Acetaminophen) 1 Each Tablet 1 Tab PO Q4H PRN Losartan Potassium 25 Mg Tablet 25 Mg PO DAILY Diltiazem HCl 60 Mg Tablet 60 Mg PO Q6HR Carvedilol 3.125 Mg Tablet 3.125 Mg PO BID Iprat-Albut 0.5-3(2.5) mg/3 ml (Ipratropium/Albuterol Sulfate) 3 Ml Ampul.neb 3 Ml INH RTQ6HR Nicoderm Cq (Nicotine) 1 Each Patch.td24 21 Mg TD DAILY@0900 Eliquis (Apixaban) 5 Mg Tablet 5 Mg PO BID Clopidogrel (Clopidogrel Bisulfate) 75 Mg Tablet 75 Mg PO DAILY Potassium Chloride 20 Meq Tab.er.prt 20 Meq PO BID Atorvastatin Calcium 80 Mg Tablet 80 Mg PO HS Reported Metoprolol Tartrate 50 Mg Tablet 50 Mg PO BID Furosemide 40 Mg Tablet 40 Mg PO BID Metformin HCl 1,000 Mg Tablet 1,000 Mg PO BID Lisinopril 20 Mg Tablet 20 Mg PO DAILY Assessment/Pt Instructions [facility] in 1 week Discharge Planning: >30 minutes discharge planning Discharge Instructions Discharge Diet: ADA Diet, Cardiac Diet, Other Diet (DC diet) Activity as Tolerated: Yes Pneumonia Vaccine Order Indica: Yes Discharge Physical Examination Vital Signs Vital Signs Date Time Temp Pulse Resp B/P (MAP) Pulse Ox O2 Delivery O2 Flow Rate FiO2 12/25/19 11:32 92 3.00 12/25/19 11:29 12/25/19 08:00 36.4 88 18 Nasal Cannula General Appearance: No Apparent Distress, WD/WN, Chronically ill Respiratory: Normal Breath Sounds Neurologic/Psychiatric: Alert, Oriented x3 Allergies: Coded Allergies: No Known Drug Allergies (Unverified , 02/26/14) Discharge Summary Date of Admission Dec 06, 2019 at 02:45 Date of Discharge Discharge Date: Dec 25, 2019 Discharge Time: 10:00 Discharge Diagnosis Assessment: Recent VDRF CHF Meth use Edema Plan: Continue IV Diuresis Hopefully insurance will approve rehab Monitor edema DC catheter No longer needs in-patient rehab trying to wean off oxygen in order to discharge home on home health (1) Ventilator dependence (2) Congestive heart failure Qualifiers: Qualified Codes: I50.20 - Unspecified systolic (congestive) heart failure (3) Tachycardia Status: Resolved (4) Pneumonia (5) Methamphetamine abuse (6) Noncompliance Clinical Quality Measures DVT/VTE Risk/Contraindication: Risk Factor Score Per Nursin RFS Level Per Nursing on Admit: 4+=Very High GAYATRI GILL DO Dec 25, 2019 11:46
--- NOTE | 2019-12-25 13:03 | Progress Note - Urology ---
Progress Note-Urology Progress Notes/Assess & Plan Progress/Assessment & Plan GOING HOME TODAY. PLAN [facility]STO OP IN THE OFFICE Final Diagnosis HEMATURIA RONNIE ELILOTT MD Dec 25, 2019 13:03
--- NOTE | 2019-12-25 13:58 | NUR ---
CM/SS finalized discharge. Plan: Patient will discharge home with a resumption of home health and new oxygen. The patients brother will transport him home. Home Health: The patient will resume home health with [facility]. AMELIA/SS contacted Onel at the agency and informed him patient is discharge today 12/24. Onel verbalized understanding. DME: The patient qualified for 3 L continuous. The patient stated he wanted to use [facility] due to it being on his way home. AMELIA/JORGE contacted the agency and spoke with Praveen to make referral. The portable oxygen was delivered to the hospital.
--- NOTE | 2019-12-25 18:56 | Cardiology Progress Note ---
Cardiology SOAP Progress Note Subjective: No cardiac complaints. Objective: I&O/Vital Signs 12/25/19 12/25/19 12/25/19 12/25/19 07:08 08:00 08:00 11:29 Temp 36.4 Pulse 88 Resp 18 B/P (MAP) 135/84 (101) Pulse Ox 88 94 94 O2 Delivery Nasal Cannula Nasal Cannula Nasal Cannula O2 Flow Rate 3.00 3.00 3.00 12/25/19 12/25/19 11:32 11:46 Temp 36.7 Pulse 87 Resp 20 B/P (MAP) 150/98 (115) Pulse Ox 92 96 O2 Delivery Nasal Cannula O2 Flow Rate 3.00 3.00 12/25/19 00:00 Intake Total 880 ml Balance 880 ml Weight (Pounds): 358 Weight (Ounces): 1.0 Weight (Calculated Kilograms): 162.430004 Constitutional: AAO x 3 Respiratory: chest is bilaterally symmetric, lungs clear to auscultation Cardiovascular: regular rate-rhythm, S1 and S2 Gastrointestional: distended, audible bowel sounds Genital/Rectal: other (large scrotal edema and penile edema, cannot even see penis (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 Testicles are very tender to palpation but cannot see any erythema or obvious signs of infection) Extremities: normal inspection, pedal edema Neurologic/Psychiatric: no motor/sensory deficits, alert, normal mood/affect, oriented x 3 Skin: normal color, warm/dry Results/Procedures: Labs Laboratory Tests 12/24/19 20:39: Glucometer 179H 12/25/19 05:20: Sodium Level 142, Potassium Level 3.9, Chloride Level 101, Carbon Dioxide Level 29, Anion Gap 12, Blood Urea Nitrogen 11, Creatinine 0.76, Estimat Glomerular Filtration Rate > 60, BUN/Creatinine Ratio 14, Glucose Level 131H, Calcium Level 9.1 12/25/19 10:38: Glucometer 186H Microbiology 12/12/19 Gram Stain - Final, Complete 12/12/19 Sputum Culture - Final, Complete Usual upper respiratory мария YEAST 12/06/19 Blood Culture - Final, Complete No growth 12/06/19 Urine Culture - Final, Complete NO GROWTH A/P: Assessment/Dx: Scrotal cellulitis, abscess, Meth abuse, Active smoker, Cardiomyopathy of unknown origin, Recent stroke, status post thrombolytics. Positive cardiac enzymes. DM, HTN, Hyperlipidemia, RBBB, LAFB, LVH on EKG. Typical atrial flutter. Plan: Status post acute respiratory failure, doing better at this time, on nasal cannula, Continue with bronchodilators. Coronary angiogram done on December 12, 2019 showing mild coronary artery disease nonobstructive disease Chronic systolic Congestive heart failure, acute on chronic left ventricular systolic dysfunction, ejection fraction 20 percent, nonischemic cardiomyopathy, started on Coreg and losartan and tolerating it well. Patient was given lifevest previously but he is not wearing it and doesn't want to wear it. Continue with diuretics. Follow-up in the office in 2-4 weeks. Hypernatremia, Lasix and monitor Hematuria, secondary to aggressive anticoagulation. Continue to monitor H&H Scrotal swelling and cellulitis, defer to the primary team. Treatment with IV antibiotics. Meth abuse, strongly recommended to quit. Atrial flutter with 2-1 AV block. Refractory to medical therapy with IV Cardizem. Patient is on Eliquis. Cardioversion was performed with anesthesia support on 12/07/2019. Underwent ablation on December 12, 2019, currently in sinus rhythm Recent Acute stroke, status post thrombolytics, resolution. Will require rehabilitation. Tobaccoism, smoking cessation was strongly recommended. DM, defer to the primary team. HTN, continue to monitor blood pressure Hyperlipidemia, high-dose Lipitor therapy. RBBB, left anterior fascicular block. Continue to monitor Noncompliance with medication, educated in length about compliance with medicine Thank you for your consultation. Please call me if you have any questions. Monika Storm MD, FACP, FACC, FSCAI, FHRS, CCDS Interventional Cardiology Cardiac Electrophysiology Vascular Medicine and Endovascular Interventions Focused Exam Time of Focused Exam: 02:40 Calvin STORM MD Dec 25, 2019 18:56
--- NOTE | 2020-01-01 15:17 | Physician Query Clarification ---
PQ-Intro New Diagnosis Admission/Discharge Admission Date: Dec 06, 2019 at 02:45 Discharge Date: Dec 25, 2019 at 14:35 The medical record reflects the following clinical scenario: History/Risk Factors: Sepsis, acute on chronic systolic CHF, pneumonia, atrial flutter, scrotal cellulitis Clinical Findings: troponin 0.053 Treatment: Monitor, Cardizem, Coreg Question: What condition best reflects the above clinical scenario? Please document a response in the Progress Noter or Discharge Summary. 1. type II MS 2. elevated troponin. No MS 3. Other, with explanation of the clinical findings. 4. Clinically undetermined, no explanation for the clinical findings. PHYSICIAN RESPONSE What condition reflects above: 1 Please remember a lack of response to the above will prompt a phone page by CDI/Coding staff. In responding to this query, please exercise your independent professional judgment. The purpose of this communication is to more accurately reflect the complexity of your patients condition. The fact that a question is asked does not imply that any particular answer is desired or expected. Thank you for your timely response to this clarification. Requestors name: Sang [email or web address] THIS PHYSICIAN QUERY FORM IS A PERMANENT PART OF THE MEDICAL RECORD SANG MUNIZ Jan 01, 2020 15:17 Calvin ROQUE MD Jan 02, 2020 12:32
== END 2019-12-25 14:35 | disposition home health service (06) | DRG 853 ==
LOC: EDUNIT# 01:22 → ER 01:24 → ICU 02:45 → 4TH 12-08 12:39 → ICU 12-12 13:38 → 4TH 12-17 08:18
PROVIDERS: ADMIT Family Medicine; ATTEND Family Medicine
PROC: 5A2204Z Restoration of Cardiac Rhythm, Single (ICD-10-PCS; principal; 2019-12-07)
PROC: 02583ZZ Destruction of Conduction Mechanism, Percutaneous Approach (ICD-10-PCS; 2019-12-12)
PROC: 5A1945Z Respiratory Ventilation, 24-96 Consecutive Hours (ICD-10-PCS; 2019-12-12)
PROC: 0BH17EZ Insertion of Endotracheal Airway into Trachea, Via Natural or Artificial Opening (ICD-10-PCS; 2019-12-12)
PROC: 4A023N7 Measurement of Cardiac Sampling and Pressure, Left Heart, Percutaneous Approach (ICD-10-PCS; 2019-12-12)
PROC: B2111ZZ Fluoroscopy of Multiple Coronary Arteries using Low Osmolar Contrast (ICD-10-PCS; 2019-12-12)
DX: A41.9 Sepsis, unspecified organism (principal); I50.23 Acute on chronic systolic (congestive) heart failure; J96.00 Acute respiratory failure, unspecified whether with hypoxia or hypercapnia; J18.9 Pneumonia, unspecified organism; I21.A1 Myocardial infarction type 2; I48.92 Unspecified atrial flutter; I42.8 Other cardiomyopathies; Z68.41 Body mass index [BMI] 40.0-44.9, adult; I47.1 Supraventricular tachycardia; K42.0 Umbilical hernia with obstruction, without gangrene; I45.2 Bifascicular block; E87.0 Hyperosmolality and hypernatremia; R65.20 Severe sepsis without septic shock; N45.2 Orchitis; I11.0 Hypertensive heart disease with heart failure; I48.91 Unspecified atrial fibrillation; I44.39 Other atrioventricular block; N48.89 Other specified disorders of penis; R33.9 Retention of urine, unspecified; F17.210 Nicotine dependence, cigarettes, uncomplicated; M10.9 Gout, unspecified; F15.129 Other stimulant abuse with intoxication, unspecified; R47.81 Slurred speech; E11.65 Type 2 diabetes mellitus with hyperglycemia; R79.89 Other specified abnormal findings of blood chemistry; Z79.01 Long term (current) use of anticoagulants; Z86.73 Personal history of transient ischemic attack (TIA), and cerebral infarction without residual deficits; Z79.4 Long term (current) use of insulin; Z91.19 Patient's noncompliance with other medical treatment and regimen; Z20.828 Contact with and (suspected) exposure to other viral communicable diseases; E66.01 Morbid (severe) obesity due to excess calories; K59.00 Constipation, unspecified; E78.5 Hyperlipidemia, unspecified; I25.10 Atherosclerotic heart disease of native coronary artery without angina pectoris; E83.51 Hypocalcemia; E83.42 Hypomagnesemia; R31.0 Gross hematuria
CPT/HCPCS: 36415; 36600; 51702; 71045; 74176; 76870; 80048; 80053; 80202; 80306; 80320; 81000; 82140; 82805; 82962; 83605; 83735; 83880; 84100; 84132; 84145; 84478; 84484; 85025; 85610; 85730; 87040; 87070; 87081; 87088; 87205; 87635; 93005; 93306; 93312; 93320; 93325; 93458; 93613; 93623; 93653; 94002; 94003; 94640; 94660; 94664; 94760; 94761; 94799; 96374; 96375

== ENCOUNTER 2020-03-12 12:00 | Day surgery (SDC) | payer MEDICAID ==
[~2020-03-12] VITALS: Ht 180.3 cm; Wt 110.0 kg
[2020-03-12] VITALS (8 sets, daily range): BP systolic 96–126; BP diastolic 60–109
--- NOTE | 2020-03-12 11:50 | Anesthesia-General Post-Op ---
MAC Patient Condition Mental Status/LOC: Same as Preop Cardiovascular: Satisfactory Nausea/Vomiting: Absent Respiratory: Satisfactory Pain: Controlled Complications: Absent Post Op Complications Complications None Follow Up Care/Instructions Patient Instructions None needed. Anesthesiology Discharge Order Discharge Order Patient is doing well, no complaints, stable vital signs, no apparent adverse anesthesia problems. No complications reported per nursing. ORION RIGGINS CRNA Mar 12, 2020 11:50
[~2020-03-12 12:00] MED LIST changes: +ACHD5005 PO; +ATOR80TA76 PO; +BLOO1EAC87 MC; +CARV3.122 PO; +CLOP75TA28 PO; +DILT60TA PO; +FAMO20TA5 PO; +FURO40TA4 PO; +INSU100I29 SQ; +IPRA3AMP31 INH; +LANC-954 MC; +LANC1COM6 MC; +LOSA25TA41 PO; +NICO1PAT34 TD; +NS IV 1000 ML 1,000 ML IV SCH; +NS IV 1000 ML 1,000 ML ONE; +PEN-53 MC; +POTA20TA15 PO; +proPOfol 200 MG/20 ML (DIPRIVAN) VIAL IV ONE
[2020-03-12] MEDS ORDERED: METO5TAB6 PO (12:25)
[2020-03-12] MEDS ORDERED: CARV6.252 PO (12:25)
[2020-03-12] MEDS ORDERED: FURO40TA4 PO (12:25)
[2020-03-12] MEDS ORDERED: GABA300C PO (12:25)
--- NOTE | 2020-03-12 18:23 | Cardioversion ---
Cardioversion PROCEDURE PHYSICIAN: Monika Storm MD DATE OF PROCEDURE: 03/12/20 DIRECT EXTERNAL ELECTRICAL CARDIOVERSION: Indications: Atypical atrial flutter/Atrial Fibrillation with rapid ventricular rate Preoperative diagnoses: Atypical atrial flutter/Atrial Fibrillation with rapid ventricular rate Postoperative diagnosis: Sinus rhythm, Successful Electrical Cardioversion History: 54 year old with AF/atrial flutter with rvr with symptoms. Anesthesia: By Anesthesia services Complications: None Specimen: None Contrast: 0 Flouroscopy: none Procedure Details: The patient was brought the cathead worker after informed consent was taken, all the risks and complications were explained including the risk of stroke. Electrical cardioversion was carried out with anesthesia support with propofol. 200 joules of synchronized shock was delivered through external patches which promptly restored sinus rhythm. The patient tolerated the procedure well. Conclusions: 1.Successful Cardioversion. 2.Continue oral anticoagulation and rate controlling agent. 3.Follow up in office in 7-14 days. Monika Storm MD, [facility] Cardiac Electrophysiology Cavlin STORM MD Mar 12, 2020 18:23
== END 2020-03-12 12:45 | disposition home or self-care (01) ==
LOC: CATH 12:00
PROVIDERS: ATTEND Internal Medicine Interventional Cardiology
DX: I48.4 Atypical atrial flutter (principal); E11.9 Type 2 diabetes mellitus without complications; I11.0 Hypertensive heart disease with heart failure; I50.42 Chronic combined systolic (congestive) and diastolic (congestive) heart failure; I48.19 Other persistent atrial fibrillation; I25.10 Atherosclerotic heart disease of native coronary artery without angina pectoris; F17.210 Nicotine dependence, cigarettes, uncomplicated; I34.0 Nonrheumatic mitral (valve) insufficiency; E66.9 Obesity, unspecified; Z68.33 Body mass index [BMI] 33.0-33.9, adult; Z79.01 Long term (current) use of anticoagulants; Z79.899 Other long term (current) drug therapy; Z79.82 Long term (current) use of aspirin; Z86.73 Personal history of transient ischemic attack (TIA), and cerebral infarction without residual deficits; Z83.3 Family history of diabetes mellitus
CPT/HCPCS: 92960; 93005

== ENCOUNTER 2021-08-02 12:28 | Inpatient (IN) | payer MEDICAID ==
[~2021-08-02] VITALS: Ht 180 cm; Wt 122.8 kg
[~2021-08-02 12:28] MED LIST changes: +CARV6.252 PO; +GABA300C PO; -LISI-552 PO; +LISI20TA26 PO; +METO5TAB6 PO; -NS IV 1000 ML 1,000 ML IV SCH; -NS IV 1000 ML 1,000 ML ONE; +POTA-179 PO; -POTA20TA15 PO; -proPOfol 200 MG/20 ML (DIPRIVAN) VIAL IV ONE
[2021-08-02] MEDS ORDERED: inSUlin (REGULAR) HUMAN 1 UNIT/0.01 ML (CHARGE PER UNIT) SC STA (13:16)
[2021-08-02] MEDS ORDERED: inSUlin (REGULAR) HUMAN 1 UNIT/0.01 ML (CHARGE PER UNIT) IV STA (13:16)
--- NOTE | 2021-08-02 13:16 | ED General ---
General Chief Complaint: Trauma-Non Activation Stated Complaint: DIZZINESS/FALL Nursing Triage Note: PT TO FT 2 PER W/C. CO OF FALLING A FEW TIMES OVER PAST 2 WEEKS. PT STATES HAS HX STROKE, PT HAS INCREASED WEAKNESS IN R ARM. PT HAS AN ABRASION ON R ANKLE AND R ANKLE PAIN. PT DENIES LOC. PT HR 120-135 WILL MOVE TO ROOM W MONITOR Source of Information: Patient, Family (brother) Exam Limitations: No Limitations History of Present Illness Date Seen by Provider: Aug 02, 2021 Time Seen by Provider: 13:05 Initial Comments 56-year-old male presents to the emergency room with a chief complaint of increasing generalized weakness, a little dizziness, what he describes as worsening weakness in his right upper extremity. He had a stroke about 2 years ago that affected his right side. He thought that he was getting better but states that he feels less coordinated and more weak in his right arm. Patient states that he had a fall this morning onto his right ankle. He lost his balance and fell. He states he did not hit his head or have a loss of consciousness. He is chronically anticoagulated on Eliquis with a history of atrial fibrillation. Patient feels nauseous. Generally unwell. Does not ro utinely check his blood sugars but states that is not unusual for him to be up in the 3 and 400 range. States he has intermittent diarrhea. No problems with urination. No rashes. No abdominal pain. No chest pain. He is a little short of breath. Former smoker. Chews tobacco. All other review of systems reviewed and negative except as stated Timing/Duration: Other (2 weeks) Severity: Moderate Associated Systoms: Loss of Appetite, Malaise, Nausea/Vomiting, Weakness Allergies and Home Medications Allergies Coded Allergies: No Known Drug Allergies (Unverified , 02/26/14) Patient Home Medication List Home Medication List Reviewed: Yes Apixaban (Eliquis) 5 Mg Tablet, 5 MG PO BID Prescribed by: GAYATRI GILL on 12/25/19 1025 Atorvastatin Calcium (Atorvastatin Calcium) 80 Mg Tablet, 80 MG PO HS Prescribed by: GAYATRI GILL on 12/25/19 1025 Blood-Glucose Meter (Blood Glucose Meter) 1 Each Each, EACH [facility], (DME) Prescribed by: GAYATRI GILL on 12/25/19 1145 Carvedilol (Carvedilol) 6.25 Mg Tablet, 6.25 MG PO BID, (Reported) Entered as Reported by: CLINTON ARGUETA on 03/12/20 1225 Clopidogrel Bisulfate (Clopidogrel) 75 Mg Tablet, 75 MG PO DAILY Prescribed by: GAYATRI GILL on 12/25/19 1025 Diltiazem HCl (Diltiazem HCl) 60 Mg Tablet, 60 MG PO Q6HR Prescribed by: GAYATRI GILL on 12/25/19 1025 Furosemide (Furosemide) 40 Mg Tablet, 60 MG PO DAILY, (Reported) Entered as Reported by: CLINTON ARGUETA on 03/12/20 1225 Gabapentin (Neurontin) 300 Mg Capsule, 300 MG PO TID, (Reported) Entered as Reported by: CLINTON ARGUETA on 03/12/20 1225 Hydrocodone/Acetaminophen (Hydrocodone-Acetamin 5-325 mg) 1 Each Tablet, 1 TAB PO Q4H PRN for PAIN-MODERATE (5-7) Prescribed by: GAYATRI GILL on 12/25/19 1027 Insulin Aspart (Novolog Flexpen) 300 Units/3 Ml Solution, 4 UNITS SQ AC Prescribed by: GAYATRI GILL on 12/25/19 1025 Insulin Detemir (Levemir Flextouch) 100 Unit/1 Ml Insuln.pen, 16 UNIT SQ HS Prescribed by: GAYATRI GILL on 12/25/19 1025 Ipratropium/Albuterol Sulfate (Iprat-Albut 0.5-3(2.5) mg/3 ml) 3 Ml Ampul.neb, 3 ML INH RTQ6HR Prescribed by: GAYATRI GILL on 12/25/19 1025 Lancets (Blood Lancets) 1 Each Each, EACH [facility], (DME) Prescribed by: GAYATRI GILL on 12/25/19 1145 Lancets/Blood Glucose Strips (Lancet 30G-Glucose Test Strip) 1 Each Combo..pkg, EACH [facility], (DME) Prescribed by: GAYATRI GILL on 12/25/19 1145 Losartan Potassium (Losartan Potassium) 25 Mg Tablet, 25 MG PO DAILY Prescribed by: GAYATRI GILL on 12/25/19 1025 Metolazone (Metolazone) 5 Mg Tablet, 5 MG PO DAILY, (Reported) Entered as Reported by: CLINTON ARGUETA on 03/12/20 1225 Nicotine (Nicoderm Cq) 1 Each Patch.td24, 21 MG TD DAILY@0900 Prescribed by: GAYATRI GILL on 12/25/19 1025 Pen Needle, Diabetic (Advocate Pen Needle) 1 Each Dis.needle, EACH [facility], (DME) Prescribed by: GAYATRI GILL on 12/25/19 1025 Potassium Chloride (Potassium Chloride) 20 Meq Tab.er.prt, 20 MEQ PO BID Prescribed by: GAYATRI GILL on 12/25/19 1025 Review of Systems Review of Systems Constitutional: see HPI EENTM: no symptoms reported Respiratory: cough (occasional), short of breath Cardiovascular: no symptoms reported Gastrointestinal: loss of appetite, nausea Genitourinary: no symptoms reported Musculoskeletal: joint pain Skin: no symptoms reported Psychiatric/Neurological: No Symptoms Reported All Other Systems Reviewed Negative Unless Noted: Yes Past Skglpzh-Oemscs-Nuwxcp Hx Patient Social History Tobacco Use?: No Smoking Status: Former Smoker Substance use?: Yes Substance type: Marijuana Alcohol Use?: No Pt feels they are or have been: No Immunizations Up To Date Tetanus Booster (TDap): Unknown Seasonal Allergies Seasonal Allergies: No Past Medical History Surgery/Hospitalization HX: HX, STROKE AND NE Surgeries: No Tonsillectomy Respiratory: Yes Sleep Apnea Currently Using CPAP: Yes Cardiac: Yes Atrial Fibrillation, High Cholesterol, Hypertension Neurological: Yes Stroke Reproductive Disorders: No Sexually Transmitted Disease: No HIV/AIDS: No Genitourinary: No Gastrointestinal: No Musculoskeletal: Yes Gout Endocrine: Yes (TYPE 2 DM) Diabetes, Insulin dep Loss of Vision: Denies Hearing Impairment: Denies Cancer: No Psychosocial: No Integumentary: No Blood Disorders: No Adverse Reaction/Blood Tranf: No Family Medical History Coronary thrombosis 19 FATHER Diabetes mellitus G8 BROTHER FH: lung cancer 19 MOTHER (MOTHER FROM LUNG CA) Hypercholesterolemia 19 FATHER Myocardial infarction 19 FATHER ( FROM NE) Heart Disease, Cancer, Diabetes, Hypertension Physical Exam Vital Signs Vital Signs - First Documented 08/02/21 12:50 Temp 36.5 Pulse 123 Resp 18 B/P (MAP) 132/82 (99) Pulse Ox 18 Capillary Refill : Less Than 3 Seconds Height, Weight, BMI Height: 5'11.00" Weight: 358lbs. 1.0oz. 162.448891ci; 39.00 BMI Method: General Appearance: No Apparent Distress, WD/WN Eyes: Bilateral Eye Normal Inspection, Bilateral Eye PERRL, Bilateral Eye EOMI HEENT: PERRL/EOMI Neck: Non Tender, Supple Respiratory: Lungs Clear, Normal Breath Sounds, No Accessory Muscle Use, No Respiratory Distress Cardiovascular: Regular Rate, Rhythm, Normal Peripheral Pulses, Tachycardia (120's) Gastrointestinal: Normal Bowel Sounds, Non Tender, Soft Extremity: Normal Capillary Refill, Swelling (right ankle ttp; distal tibia ttp; abrasion medial ankle) Neurologic/Psychiatric: Alert, Oriented x3, Normal Mood/Affect, ball warper tender II-XII Norm as Tested, Motor Weakness (RUE) Skin: Warm/Dry Procedures/Interventions Date of ETT Placement: Dec 12, 2019 Progress/Results/Core Measures Suspected Sepsis SIRS Temperature: Pulse: 123 Respiratory Rate: 18 Laboratory Tests 08/02/21 13:10: White Blood Count 21.9H Blood Pressure 132 /82 Mean: 99 Laboratory Tests 08/02/21 13:10: Creatinine 2.64H, Platelet Count 311, Total Bilirubin 1.8H Results/Orders Lab Results Laboratory Tests Test 08/02/21 13:10 08/02/21 14:24 Range/Units White Blood Count 21.9 H 4.3-11.0 10^3/uL Red Blood Count 5.65 H 4.30-5.52 10^6/uL Hemoglobin 15.9 13.3-17.7 g/dL Hematocrit 47 40-54 % Mean Corpuscular Volume 83 80-99 fL Mean Corpuscular Hemoglobin 28 25-34 pg Mean Corpuscular Hemoglobin Concent 34 32-36 g/dL Red Cell Distribution Width 13.3 10.0-14.5 % Platelet Count 311 130-400 10^3/uL Mean Platelet Volume 12.4 H 9.0-12.2 fL Immature Granulocyte % (Auto) 1 % Neutrophils (%) (Auto) 86 H 42-75 % Lymphocytes (%) (Auto) 6 L 12-44 % Monocytes (%) (Auto) 7 0-12 % Eosinophils (%) (Auto) 0 0-10 % Basophils (%) (Auto) 0 0-10 % Neutrophils # (Auto) 18.8 H 1.8-7.8 10^3/uL Lymphocytes # (Auto) 1.4 1.0-4.0 10^3/uL Monocytes # (Auto) 1.4 H 0.0-1.0 10^3/uL Eosinophils # (Auto) 0.1 0.0-0.3 10^3/uL Basophils # (Auto) 0.1 0.0-0.1 10^3/uL Immature Granulocyte # (Auto) 0.1 0.0-0.1 10^3/uL Neutrophils % (Manual) 87 % Lymphocytes % (Manual) 7 % Monocytes % (Manual) 5 % Eosinophils % (Manual) 1 % Blood Morphology Comment NORMAL Sodium Level 111 *L 135-145 MMOL/L Potassium Level 4.1 3.6-5.0 MMOL/L Chloride Level 66 L 98-107 MMOL/L Carbon Dioxide Level 22 21-32 MMOL/L Anion Gap 23 H 5-14 MMOL/L Blood Urea Nitrogen 68 H 7-18 MG/DL Creatinine 2.64 H 0.60-1.30 MG/DL Estimat Glomerular Filtration Rate 28 BUN/Creatinine Ratio 26 Glucose Level 1040 *H 70-105 MG/DL Calcium Level 8.8 8.5-10.1 MG/DL Corrected Calcium 8.9 8.5-10.1 MG/DL Total Bilirubin 1.8 H 0.1-1.0 MG/DL Aspartate Amino Transf (AST/SGOT) 23 5-34 U/L Alanine Aminotransferase (ALT/SGPT) 32 0-55 U/L Alkaline Phosphatase 126 40-136 U/L Total Protein 8.2 6.4-8.2 GM/DL Albumin 3.9 3.2-4.5 GM/DL Beta-Hydroxybutyrate (Chem panel) 1.59 H 0.00-0.27 MMOL/L Blood Gas Puncture Site LEFT BRACHIAL Blood Gas Patient Temperature 36.5 Arterial Blood pH 7.43 7.37-7.43 Arterial Blood Partial Pressure CO2 44 35-45 MMHG Arterial Blood Partial Pressure O2 59 L 79-93 MMHG Arterial Blood HCO3 29 H 23-27 MMOL/L Arterial Blood Total CO2 30.6 21.0-31.0 MMOL/L Arterial Blood Oxygen Saturation 93 L 94-100 % Arterial Blood Base Excess 5.0 H -2.5-2.5 MMOL/L Mike Test YES-POS Blood Gas Ventilator Setting NO Blood Gas Inspired Oxygen 0 My Orders Orders - WALT PATTON MD Ed Iv/Invasive Line Start (08/02/21 13:16) Cbc With Automated Diff (08/02/21 13:16) Comprehensive Metabolic Panel (08/02/21 13:16) Ua Culture If Indicated (08/02/21 13:16) Chest 1 View, Ap/Pa Only (08/02/21 13:16) Beta Hydroxybutyrate (08/02/21 13:16) Ankle, Right, 3 Views (08/02/21 13:16) Tibia/Fibula, Right, 2 Views (08/02/21 13:16) Ekg Tracing (08/02/21 13:16) Ns Iv 1000 Ml (Sodium Chloride 0.9%) (08/02/21 13:30) Insulin (Regular) Human (Novolin R (Per (08/02/21 13:16) Insulin (Regular) Human (Novolin R (Per (08/02/21 13:16) Ct Head Wo (08/02/21 13:16) Manual Differential (08/02/21 13:10) Hydrocodone/Apap 10/325 Tablet (Lortab 1 (08/02/21 14:00) Arterial Blood Gas (08/02/21 14:24) Arterial Blood Draw - Obtain (08/02/21 ) Insulin Regular Drip (Myxredlin 100 Unit (08/02/21 14:45) Medications Given in ED Current Medications Medications Dose Ordered Sig/Hailey Route Start Time Stop Time Status Last Admin Dose Admin Acetaminophen/ Hydrocodone Bitart 1 ea ONCE ONCE PO 08/02/21 14:00 08/02/21 14:01 DC 08/02/21 14:36 1 EA Vital Signs/I&O 08/02/21 12:50 Temp 36.5 Pulse 123 Resp 18 B/P (MAP) 132/82 (99) Pulse Ox 18 Capillary Refill : Less Than 3 Seconds Blood Pressure Mean: 99 Progress Note : Time: 13:53 Progress Note notified by the lab of critical sodium at 111. Anticipate likely more towards normal, as blood glucose to high to read on bedside monitor. ANticipate admission DKA protocol ECG Initial ECG Impression Date: Aug 02, 2021 Initial ECG Impression Time: 13:06 Initial ECG Rate: 120 Initial ECG Rhythm: A Fib/Flutter Comment EKG shows rhythm likely flutter, rate 120, prominent P waves, nondiagnostic, LVH with interventricular conduction delay, prolonged QT at 556 Diagnostic Imaging Diagonstic Imaging: CT Plain Films/CT/US/NM/MRI: head Comments NAME: MEAGAN GUEVARA [facility] REC#: [id number] PT STATUS: REG ER : 1965 PHYSICIAN: WALT PATTON MD ADMIT DATE: 08/02/21/ER Draft Date of Exam:08/02/21 CT HEAD WO CLINICAL INDICATION: Patient is status post fall a few times over the past two weeks. Patient has history of stroke. Patient has increased weakness in the right arm. EXAM: Axial CT scan of the brain without IV contrast with coronal and sagittal reformatted images. Auto Exposure Controls were utilized during the CT exam to meet ALARA standards for radiation dose reduction. COMPARISON: MRI of the brain without contrast dated 11/11/2019. FINDINGS: There is no evidence of acute cerebral infarct, intracranial hemorrhage, or gross mass effect. There is a frcbr-ia-mkpfowzc-sized area of chronic infarct involving the posterior left cerebral hemisphere which has progressed in the interim. The brain parenchymal volume appears appropriate for patient's age. There is normal garza-white matter distinction. There is no significant midline shift or herniation. There is no evidence of hydrocephalus. The basal cisterns are unremarkable. The skull, extracranial soft tissue, and orbits are unremarkable. The paranasal sinuses are unremarkable. Temporal bones show no significant abnormality. IMPRESSION: 1: There is no CT evidence of acute intracranial process. There is no intracranial hemorrhage or skull fracture. 2: There is interval evolution of a now chronic cerebral infarct involving the posterior left cerebral hemisphere. Dictated on workstation # [id number] Dict: 08/02/21 1406 Trans: 08/02/21 1418 [id number] Interpreted by: MITALI GRISSOM MD Electronically signed by: Diagonstic Imaging: Xray Plain Films/CT/US/NM/MRI: ankle Comments [facility] [place], [place] NAME: MEAGAN GUEVARA [facility] REC#: [id number] PT STATUS: REG ER : 1965 PHYSICIAN: WALT PATTON MD ADMIT DATE: 08/02/21/ER Draft Date of Exam:08/02/21 ANKLE, RIGHT, 3 VIEWS INDICATION: Fell a few times in the last 2 weeks. Pain. EXAMINATION: Right ankle on 08/02/2021. COMPARISON: Right tibia and fibula radiographs from this same date. FINDINGS: Three views of the ankle demonstrate a comminuted and slightly displaced fracture of the distal fibula with diastasis of approximately 3 mm. There is questioned mild widening at the medial ankle mortise with tiny osseous fragments adjacent to the medial malleolus, likely acute fracture fragments. There is diffuse soft tissue swelling about the ankle. Deformity of the distal one/third of the tibia as described on the separate tibia and fibula radiographs. IMPRESSION: Comminuted displaced distal fibular fracture with avulsion fracture fragments from the medial malleolus and questioned widening of the medial ankle mortise. Other findings as above. Dictated on workstation # [id number] Dict: 08/02/21 1430 Trans: 08/02/21 [id number] Interpreted by: ABDULLAHI MALONEY MD Electronically signed by: Bellagonstic Imaging: Xray Plain Films/CT/US/NM/MRI: chest Comments [facility], [place] NAME: MEAGAN GUEVARA [facility] REC#: [id number] PT STATUS: REG ER : 1965 PHYSICIAN: WALT PATTON MD ADMIT DATE: 08/02/21/ER Signed Date of Exam:08/02/21 CHEST 1 VIEW, AP/PA ONLY CHEST 1 VIEW, AP/PA ONLY Indication: Weakness Comparison: 12/23/2019 Findings: No focal airspace disease in the visualized lungs. Please note that the posterior lower lobes are poorly evaluated by portable radiography. No pleural effusion or pneumothorax. Stable enlargement of cardiac silhouette. Impression: 1. No acute cardiopulmonary process by portable radiography. Dictated by: Dictated on workstation # [id number] Dict: 08/02/21 1423 Trans: 08/02/211431 [facility] [id number] Interpreted by: SHANTE ROSALES MD Electronically signed by: SHANTE ROSALES MD 08/02/21 1432 Diagonstic Imaging: Xray Comments [facility] [place], [place] NAME: MEAGAN GUEVARA [facility] REC#: [id number] PT STATUS: REG ER : 1965 PHYSICIAN: WALT PATTON MD ADMIT DATE: 08/02/21/ER Draft Date of Exam:08/02/21 TIBIA/FIBULA, RIGHT, 2 VIEWS INDICATION: Weakness, pain. EXAMINATION: Right tibia-fibula from 08/02/2021. FINDINGS: Four views of the tibia and fibula. There is diffuse expansile abnormality within the distal one-third of the tibia with cortical thickening and a nonspecific lucency along the medial cortex. No associated fracture is seen with no adjacent periosteal reaction. Remaining osseous structures are intact with the joint spaces preserved. There is a small osseous excrescence along the medial border of the proximal tibia, chronic and benign in appearance. IMPRESSION: 1. Nonspecific expansile abnormality along the distal one-third of the tibia. Clinical correlation for prior healed fracture recommended. If no prior injury to the region, an expansile mass is in the differential as is an infectious etiology given the lucent area along the medial cortex. Dedicated MRI with and without contrast could further characterize as clinically indicated. Dictated on workstation # [id number] Dict: 08/02/21 1421 Trans: 08/02/21 1429 [id number] [id number] Interpreted by: ABDULLAHI MALONEY MD Electronically signed by: Critical Care Note Critical Care Start Time: 13:05 Stop Time: 14:58 Total Time (minutes) 1 hour critical care time in the evaluation and management of this patient with tachycardia, hyperglycemia, blood sugar of 1040. Time includes initial evaluation and management, review and interpretation of laboratory studies, revi ew and interpretation of x-rays and CTs. Review of the medical record, discussion with multiple physicians including admitting doctor, cardiology and orthopedic services. Time also includes discussion with family. Departure Communication (Admissions) Time/Spoke to Admitting Phy: 14:[address] Gill Time/Spoke to Consulting Phy: 14:[address] Burgess; fluids for now, no additional meds at this time; [address] Daniel Impression Primary Impression: Hyperglycemic hyperosmolar nonketotic coma Additional Impressions: Closed right fibular fracture Qualified Codes: S82.831A - Other fracture of upper and lower end of right fibula, initial encounter for closed fracture Acute renal failure Qualified Codes: N17.9 - Acute kidney failure, unspecified Atrial flutter with rapid ventricular response Disposition: ADMITTED INPATIENT Condition: Stable Admissions Decision to Admit Reason: Admit from ER (General) Decision to Admit/Date: Aug 02, 2021 Time/Decision to Admit Time: 14:56 Departure-Patient Inst. Referrals: NO,LOCAL PHYSICIAN (PCP/Family) Primary Care Physician Copy Copies To 1: PETE AHUMADA KATHRYN M MD Aug 02, 2021 13:16
[2021-08-02 13:27] LABS: BASOPHILS # (AUTO) 0.1 10^3/uL (0.0-0.1); BASOPHILS % (AUTO) 0 % (0-10); EOSINOPHILS # (AUTO) 0.1 10^3/uL (0.0-0.3); EOSINOPHILS % (AUTO) 0 % (0-10); HEMATOCRIT 47 % (40-54); HEMOGLOBIN 15.9 g/dL (13.3-17.7); LYMPHOCYTES # (AUTO) 1.4 10^3/uL (1.0-4.0); LYMPHOCYTES % (AUTO) 6 % (12-44); MEAN CORPUSCULAR HEMOGLOBIN 28 pg (25-34); MEAN CORPUSCULAR HGB CONC 34 g/dL (32-36); MEAN CORPUSCULAR VOLUME 83 fL (80-99); MEAN PLATELET VOLUME 12.4 fL (9.0-12.2); MONOCYTES # (AUTO) 1.4 10^3/uL (0.0-1.0); MONOCYTES % (AUTO) 7 % (0-12); NEUTROPHILS # (AUTO) 18.8 10^3/uL (1.8-7.8); NEUTROPHILS % (AUTO) 86 % (42-75); PLATELET COUNT 311 10^3/uL (130-400); WHITE BLOOD COUNT 21.9 10^3/uL (4.3-11.0)
[2021-08-02] MEDS ORDERED: NS IV 1000 ML 1,000 ML IV SCH ×3 (13:30→17:30)
[2021-08-02 13:41] LABS: ALBUMIN 3.9 GM/DL (3.2-4.5); POTASSIUM 4.1 MMOL/L (3.6-5.0)
[2021-08-02 13:42] LABS: CALCIUM 8.8 MG/DL (8.5-10.1)
[2021-08-02 13:44] LABS: TOTAL PROTEIN 8.2 GM/DL (6.4-8.2)
[2021-08-02 13:45] LABS: BILIRUBIN,TOTAL 1.8 MG/DL (0.1-1.0)
[2021-08-02 13:47] LABS: CREATININE SERUM 2.64 MG/DL (0.60-1.30)
[2021-08-02 13:52] LABS: EOSINOPHILS % (MANUAL) 1 %; LYMPHOCYTES % (MANUAL) 7 %; MONOCYTES % (MANUAL) 5 %; NEUTROPHILS % (MANUAL) 87 %; RBC MORPH NORMAL
--- NOTE | 2021-08-02 14:19 | Diagnostic Imaging Report ---
CLINICAL INDICATION: Patient is status post fall a few times over the past two weeks. Patient has history of stroke. Patient has increased weakness in the right arm. EXAM: Axial CT scan of the brain without IV contrast with coronal and sagittal reformatted images. Auto Exposure Controls were utilized during the CT exam to meet ALARA standards for radiation dose reduction. COMPARISON: MRI of the brain without contrast dated 11/11/2019. FINDINGS: There is no evidence of acute cerebral infarct, intracranial hemorrhage, or gross mass effect. There is a arpqf-kf-yeybwtrc-sized area of chronic infarct involving the posterior left cerebral hemisphere which has progressed in the interim. The brain parenchymal volume appears appropriate for patient's age. There is normal garza-white matter distinction. There is no significant midline shift or herniation. There is no evidence of hydrocephalus. The basal cisterns are unremarkable. The skull, extracranial soft tissue, and orbits are unremarkable. The paranasal sinuses are unremarkable. Temporal bones show no significant abnormality. IMPRESSION: 1: There is no CT evidence of acute intracranial process. There is no intracranial hemorrhage or skull fracture. 2: There is interval evolution of a now chronic cerebral infarct involving the posterior left cerebral hemisphere. Dictated by: Dictated on workstation # [id number]
--- NOTE | 2021-08-02 14:30 | Diagnostic Imaging Report ---
INDICATION: Weakness, pain. EXAMINATION: Right tibia-fibula from 08/02/2021. FINDINGS: Four views of the tibia and fibula. There is diffuse expansile abnormality within the distal one-third of the tibia with cortical thickening and a nonspecific lucency along the medial cortex. No associated fracture is seen with no adjacent periosteal reaction. Remaining osseous structures are intact with the joint spaces preserved. There is a small osseous excrescence along the medial border of the proximal tibia, chronic and benign in appearance. IMPRESSION: 1. Nonspecific expansile abnormality along the distal one-third of the tibia. Clinical correlation for prior healed fracture recommended. If no prior injury to the region, an expansile mass is in the differential as is an infectious etiology given the lucent area along the medial cortex. Dedicated MRI with and without contrast could further characterize as clinically indicated. Dictated by: Dictated on workstation # [id number]
[2021-08-02 14:32] LABS: ABG OXYGEN SATURATION 93 % (94-100); ABG PCO2 44 MMHG (35-45); ABG PH 7.43 (7.37-7.43); ABG PO2 59 MMHG (79-93); ABG TCO2 30.6 MMOL/L (21.0-31.0)
--- NOTE | 2021-08-02 14:34 | Diagnostic Imaging Report ---
CHEST 1 VIEW, AP/PA ONLY Indication: Weakness Comparison: 12/23/2019 Findings: No focal airspace disease in the visualized lungs. Please note that the posterior lower lobes are poorly evaluated by portable radiography. No pleural effusion or pneumothorax. Stable enlargement of cardiac silhouette. Impression: 1. No acute cardiopulmonary process by portable radiography. Dictated by: Dictated on workstation # [id number]
[2021-08-02 14:35] LABS: ALLENS TEST YES-POS; INSPIRED O2 0; PATIENT TEMP 36.5; VENTILATOR NO
--- NOTE | 2021-08-02 14:35 | Diagnostic Imaging Report ---
INDICATION: Fell a few times in the last 2 weeks. Pain. EXAMINATION: Right ankle on 08/02/2021. COMPARISON: Right tibia and fibula radiographs from this same date. FINDINGS: Three views of the ankle demonstrate a comminuted and slightly displaced fracture of the distal fibula with diastasis of approximately 3 mm. There is questioned mild widening at the medial ankle mortise with tiny osseous fragments adjacent to the medial malleolus, likely acute fracture fragments. There is diffuse soft tissue swelling about the ankle. Deformity of the distal one/third of the tibia as described on the separate tibia and fibula radiographs. IMPRESSION: Comminuted displaced distal fibular fracture with avulsion fracture fragments from the medial malleolus and questioned widening of the medial ankle mortise. Other findings as above. Dictated by: Dictated on workstation # [id number]
[2021-08-02] MEDS ORDERED: 1/2 NS IV SOLUTION 1,000 ML IV ONE (16:26)
--- NOTE | 2021-08-02 16:54 | Consultation-Cardiology ---
HPI-Cardiology Cardiology Consultation Date of Consultation 08/02/21 Date of Admission Time Seen by Provider: 16:48 Indication: Tachycardia HPI 56 years old gentleman with history of congestive heart failure nonischemic cardiomyopathy, sustained a fall resulted in ankle fracture. Patient was noted to have diabetic ketoacidosis and acute renal failure. He denied any chest pain, no shortness of breath, no palpitation. Noted to have tachycardia with a heart rate around 120. Home Medications & Allergies Allergies: Coded Allergies: No Known Drug Allergies (Unverified , 02/26/14) Home Medication List Reviewed: Yes IJS-Zumcuq-Inpaax Hx Patient Social History Smoking Status: Former Smoker Type Used: Cigarettes Recent Hopitalizations: Yes (FLUID OVERLOAD) Have you traveled recently?: No Alcohol Use?: No Substance type: Marijuana Immunizations Up To Date Tetanus Booster (TDap): Unknown Past Medical History Discussed below Family Medical History Significant Family History: Heart Disease, Cancer, Diabetes, Hypertension Family History: Coronary thrombosis 19 FATHER Diabetes mellitus G8 BROTHER FH: lung cancer 19 MOTHER (MOTHER FROM LUNG [place]) Hypercholesterolemia 19 FATHER Myocardial infarction 19 FATHER ( FROM [place]) Review of Systems-General Review of Systems Constitutional: see HPI EENTM: no symptoms reported Respiratory: see HPI, cough (occasional); No dyspnea on exertion, No hemoptysis, No orthopnea, No phlegm; short of breath; No stridor, No wheezing, No other Cardiovascular: see HPI; No chest pain, No edema, No Hx of Intervention, No palpitations, No syncope, No vascular heart diseas, No other Gastrointestinal: see HPI, loss of appetite, nausea Genitourinary: no symptoms reported, see HPI Musculoskeletal: see HPI, joint pain, other (Right ankle fracture) Skin: no symptoms reported, see HPI Psychiatric/Neurological: No Symptoms Reported, See HPI All Other Systems Reviewed Negative Unless Noted: Yes Reviewed Test Results Reviewed Test Results Lab Laboratory Tests Test 08/02/21 13:10 08/02/21 14:24 Range/Units White Blood Count 21.9 H 4.3-11.0 10^3/uL Red Blood Count 5.65 H 4.30-5.52 10^6/uL Hemoglobin 15.9 13.3-17.7 g/dL Hematocrit 47 40-54 % Mean Corpuscular Volume 83 80-99 fL Mean Corpuscular Hemoglobin 28 25-34 pg Mean Corpuscular Hemoglobin Concent 34 32-36 g/dL Red Cell Distribution Width 13.3 10.0-14.5 % Platelet Count 311 130-400 10^3/uL Mean Platelet Volume 12.4 H 9.0-12.2 fL Immature Granulocyte % (Auto) 1 % Neutrophils (%) (Auto) 86 H 42-75 % Lymphocytes (%) (Auto) 6 L 12-44 % Monocytes (%) (Auto) 7 0-12 % Eosinophils (%) (Auto) 0 0-10 % Basophils (%) (Auto) 0 0-10 % Neutrophils # (Auto) 18.8 H 1.8-7.8 10^3/uL Lymphocytes # (Auto) 1.4 1.0-4.0 10^3/uL Monocytes # (Auto) 1.4 H 0.0-1.0 10^3/uL Eosinophils # (Auto) 0.1 0.0-0.3 10^3/uL Basophils # (Auto) 0.1 0.0-0.1 10^3/uL Immature Granulocyte # (Auto) 0.1 0.0-0.1 10^3/uL Neutrophils % (Manual) 87 % Lymphocytes % (Manual) 7 % Monocytes % (Manual) 5 % Eosinophils % (Manual) 1 % Blood Morphology Comment NORMAL Sodium Level 111 *L 135-145 MMOL/L Potassium Level 4.1 3.6-5.0 MMOL/L Chloride Level 66 L 98-107 MMOL/L Carbon Dioxide Level 22 21-32 MMOL/L Anion Gap 23 H 5-14 MMOL/L Blood Urea Nitrogen 68 H 7-18 MG/DL Creatinine 2.64 H 0.60-1.30 MG/DL Estimat Glomerular Filtration Rate 28 BUN/Creatinine Ratio 26 Glucose Level 1040 *H 70-105 MG/DL Calcium Level 8.8 8.5-10.1 MG/DL Corrected Calcium 8.9 8.5-10.1 MG/DL Total Bilirubin 1.8 H 0.1-1.0 MG/DL Aspartate Amino Transf (AST/SGOT) 23 5-34 U/L Alanine Aminotransferase (ALT/SGPT) 32 0-55 U/L Alkaline Phosphatase 126 40-136 U/L Total Protein 8.2 6.4-8.2 GM/DL Albumin 3.9 3.2-4.5 GM/DL Beta-Hydroxybutyrate (Chem panel) 1.59 H 0.00-0.27 MMOL/L Blood Gas Puncture Site LEFT BRACHIAL Blood Gas Patient Temperature 36.5 Arterial Blood pH 7.43 7.37-7.43 Arterial Blood Partial Pressure CO2 44 35-45 MMHG Arterial Blood Partial Pressure O2 59 L 79-93 MMHG Arterial Blood HCO3 29 H 23-27 MMOL/L Arterial Blood Total CO2 30.6 21.0-31.0 MMOL/L Arterial Blood Oxygen Saturation 93 L 94-100 % Arterial Blood Base Excess 5.0 H -2.5-2.5 MMOL/L Mike Test YES-POS Blood Gas Ventilator Setting NO Blood Gas Inspired Oxygen 0 Physical Exam Physical Exam Vital Signs Vital Signs - First Documented 08/02/21 12:50 Temp 36.5 Pulse 123 Resp 18 B/P (MAP) 132/82 (99) Pulse Ox 18 Capillary Refill : Less Than 3 Seconds Height, Weight, BMI Height: 5'11.00" Weight: 358lbs. 1.0oz. 162.901345qk; 39.00 BMI Method: General Appearance: No Apparent Distress, WD/WN Eyes: Bilateral Eye Normal Inspection, Bilateral Eye PERRL, Bilateral Eye EOMI HEENT: PERRL/EOMI Neck: Non Tender, Supple Respiratory: Lungs Clear, Normal Breath Sounds, No Accessory Muscle Use, No Respiratory Distress Cardiovascular: Regular Rate, Rhythm, Normal Peripheral Pulses, Tachycardia (12 0's) Gastrointestinal: Normal Bowel Sounds, Non Tender, Soft Extremity: Normal Capillary Refill, Swelling (right ankle ttp; distal tibia ttp; abrasion medial ankle) Neurologic/Psychiatric: Alert, Oriented x3, Normal Mood/Affect, assistant center director II-XII Norm as Tested, Motor Weakness (RUE) Skin: Warm/Dry A/P-Cardiology Admission Diagnosis Paroxysmal atrial fibrillation/flutter Congestive heart failure, chronic compensated left ventricular systolic dysfunction nonischemic cardiomyopathy Diabetic ketoacidosis Acute renal failure Assessment/Plan Paroxysmal atrial fibrillation, flutter, underwent cardio[place] [address] Storm. Had ablation done in December [address] Storm, currently tachycardic, receiving IV fluid. Continue to monitor Diabetic ketoacidosis, noncompliance with medication. Managed by medical team, receiving IV fluid Acute renal failure, receiving IV fluid, monitor renal function Congestive heart failure, chronic compensated left ventricular systolic dysfunction, nonischemic cardiomyopathy ejection fraction 20%, has been noncompliant with medication or LifeVest in the past. Mild coronary artery disease per cardiac catheterization done in December 2019. Continue to monitor History of CVA, received thrombolytic required rehabilitation Hypertension, restart home medication monitor blood pressure Hyperlipidemia, restart high-dose statin Baseline abnormal EKG with right bundle branch block and left anterior fascicular block Tobaccoism, educated on smoking cessation History of meth abuse. Patient reported that he did not use any illicit drugs recently History of noncompliance with medication NIKA SOSA MD Aug 02, 2021 16:54
[2021-08-02 17:00] VITALS: BP 138/96
[2021-08-02] MEDS ORDERED: D5 1/2 NS 1000 ML IV SOLUTION 1,000 ML IV SCH ×2 (17:15→17:30)
[2021-08-02] MEDS ORDERED: POTASSIUM CL 10MEQ/50ML IVPB 50 ML IV SCH ×3 (17:15→17:30)
[2021-08-02 17:30] VITALS: BP 128/92
[2021-08-02] MEDS ORDERED: BISACODYL 10 MG SUPP (DULCOLAX) PR PRN (17:30)
[2021-08-02] MEDS ORDERED: 1/2 NS IV SOLUTION 1,000 ML IV SCH (17:30)
[2021-08-02] MEDS ORDERED: LACTULOSE SYRUP 10GM/15ML (ENULOSE) 30ML UDC PO PRN (17:30)
[2021-08-02] MEDS ORDERED: ONDANSETRON 4 MG (ZOFRAN) ORAL DISSOLVE TAB PO PRN (17:30)
[2021-08-02] MEDS ORDERED: ONDANSETRON 4 MG/2 ML (SDV) Z0FRAN IV PRN (17:30)
[2021-08-02] MEDS ORDERED: ACETAMINOPHEN 325 MG TABLET PO PRN (17:30)
[2021-08-02] MEDS ORDERED: MILK OF MAGNESIA 400 MG/5 ML 30 ML UDC PO PRN (17:30)
[2021-08-02] MEDS ORDERED: ANTACID SUSP 30 ML UDC (MYLANTA) PO PRN (17:30)
[2021-08-02] MEDS ORDERED: diphenhydrAMINE 25 MG TAB (BENADRYL) PO PRN (17:30)
[2021-08-02] MEDS ORDERED: diphenhydrAMINE 50 MG/ML INJ (BENADRYL) IVP PRN (17:30)
[2021-08-02] MEDS ORDERED: polyethylene glycoL POWDER 17 GM (MIRALAX) PACK PO PRN (17:30)
[2021-08-02] MEDS ORDERED: CALCIUM CARBONATE 500 MG (TUMS) TAB.CHEW PO PRN (17:30)
[2021-08-02] MEDS ORDERED: ADENOSINE 6 MG/2 ML (ADENOCARD) VIAL IV ONE (17:36)
--- NOTE | 2021-08-02 17:54 | Tele-ICU Consult ---
History of Present Illness History of Present Illness Date Seen by Provider: Aug 02, 2021 Time Seen by Provider: 16:32 Date of Admission Reason for Visit: Tachycardia Allergies and Home Medications Allergies Coded Allergies: No Known Drug Allergies (Unverified , 02/26/14) Home Medications Apixaban 5 Mg Tablet, 5 MG PO BID Prescribed by: GAYATRI GILL on 12/25/19 1025 Atorvastatin Calcium 80 Mg Tablet, 80 MG PO HS Prescribed by: GAYATRI GILL on 12/25/19 1025 Carvedilol 6.25 Mg Tablet, 6.25 MG PO BID, (Reported) Clopidogrel Bisulfate 75 Mg Tablet, 75 MG PO DAILY Prescribed by: GAYATRI GILL on 12/25/19 1025 Diltiazem HCl 60 Mg Tablet, 60 MG PO Q6HR Prescribed by: GAYATRI GILL on 12/25/19 1025 Furosemide 40 Mg Tablet, 60 MG PO DAILY, (Reported) take 1 1/2 tablet daily Gabapentin 300 Mg Capsule, 300 MG PO TID, (Reported) Hydrocodone/Acetaminophen 1 Each Tablet, 1 TAB PO Q4H PRN for PAIN-MODERATE (5- 7) Prescribed by: GAYATRI GILL on 12/25/19 1027 Insulin Aspart 300 Units/3 Ml Solution, 4 UNITS SQ AC Prescribed by: GAYATRI GILL on 12/25/19 1025 Insulin Detemir 100 Unit/1 Ml Insuln.pen, 16 UNIT SQ HS Prescribed by: GAYATRI GILL on 12/25/19 1025 Ipratropium/Albuterol Sulfate 3 Ml Ampul.neb, 3 ML INH RTQ6HR Prescribed by: GAYATRI GILL on 12/25/19 1025 Losartan Potassium 25 Mg Tablet, 25 MG PO DAILY Prescribed by: GAYATRI GILL on 12/25/19 1025 Metolazone 5 Mg Tablet, 5 MG PO DAILY, (Reported) Nicotine 1 Each Patch.td24, 21 MG TD DAILY@0900 Prescribed by: GAYATRI GILL on 12/25/19 1025 Potassium Chloride 20 Meq Tab.er.prt, 20 MEQ PO BID Prescribed by: GAYATRI GILL on 12/25/19 1025 Past Medical/Social/Family Hx Patient Social History Tobacco Use?: No Smoking Status: Former Smoker Substance use?: Yes Substance type: Marijuana Alcohol Use?: No Pt stated abuse/neglect: No Immunizations Up To Date Tetanus Booster (TDap): Unknown Current Status Advance Directives: No Communicates: Verbally Primary Language: Estonian Preferred Spoken Language: Estonian Is interpretation needed?: No Implanted or Applied Medical D: None Past Medical History PMHx: CVA CHF HTN DMII Review of Systems Constitutional: see HPI Focused Exam Height, Weight, BMI Height: 5'11.00" Weight: 358lbs. 1.0oz. 162.994265qj; 39.00 BMI Method: Exam Exam Patient acknowledged, consented, and participated in this virtual visit which was conducted using real time audio/video Vital Signs Date Time Temp Pulse Resp B/P (MAP) Pulse Ox O2 Delivery O2 Flow Rate FiO2 08/02/21 12:50 36.5 123 18 132/82 (99) 18 Height & Weight Height: 5'11.00" Weight: 358lbs. 1.0oz. 162.821771gn; 39.00 BMI Method: General Appearance: No Apparent Distress, WD/WN HEENT: PERRL/EOMI Neck: Non Tender, Supple Respiratory: Lungs Clear, Normal Breath Sounds, No Accessory Muscle Use, No Respiratory Distress Cardiovascular: Regular Rate, Rhythm, Normal Peripheral Pulses, Tachycardia (120's) Capillary Refill: Less Than 3 Seconds Extremity: Normal Capillary Refill, Swelling (right ankle ttp; distal tibia ttp; abrasion medial ankle) Neurologic/Psychiatric: Alert, Oriented x3, Normal Mood/Affect, billing associate II-XII Norm as Tested, Motor Weakness (RUE) Skin: Warm/Dry Results Lab Laboratory Tests 08/02/21 13:10 Assessment/Plan Assessment/Plan (Tele-ICU Physician , consultation) Available chart/ vitals / labs / Images reviewed H&P is from ER notes Patient's information available about PMH, Shx, Fhx allergy reviewed in EMR. ROS as per chart and RN report Now in ICU, hemodynamically stable Video assessment done using teleICU camera, rest of exam as per RN Discussed with RN. Consultants: Hospital course: 08/02- c/o wekness , falls --> A/P HHS -insulin drip continue -Continue hydration. ROSA MARIA - dehydration - cont IVF - follow closely Leukocytosis - reactive ?, chest x-ray was normal , UA pending >off ABX , follow Weakness, falls - due to above - follow - CTH 08/02 - no acute findings h/o PAF -AC- eliquis - as per cards h/o CAD - ECHO 08/2020 - EF 50% ( Pseudohyponatremia ( corrected Na 133 ) - follow fall resulted in ankle fracture Lines : (Central Line Necessity Reviewed) Reddy: voiding OG: Nutrition: Analgesia: tylenol Anxiety/ delirium VTE Prophylaxis: eliquis Stress Ulcer Prophylaxis: ppi Plans in collaboration with bedside consultants and IM MDs. Discussed with RN to reach out if any questions or concerns A total of 33 minutes of critical care time was devoted to this patient today, required to treat and/or prevent further deterioration of critical care con dition ( as above) . JUSTUS ROBBINS MD Aug 02, 2021 17:54
[2021-08-02 18:00] VITALS: BP 105/75
[2021-08-02] MEDS ORDERED: ACETAMINOPHEN 500 MG TAB (TYLENOL) PO PRN (18:00)
[2021-08-02 18:25] LABS: POTASSIUM 2.9 MMOL/L (3.6-5.0)
[2021-08-02 18:26] LABS: CALCIUM 8.4 MG/DL (8.5-10.1)
[2021-08-02 18:30] LABS: CREATININE SERUM 2.27 MG/DL (0.60-1.30)
--- NOTE | 2021-08-02 18:31 | History & Physical-Hospitalist ---
OMAIRA CABRERA 08/02/211830: History of Present Illness HPI/Chief Complaint CC: Delon is a 56yo M who presented to the ER this evening with ankle pain. For the past two weeks he has been feeling off balance, had weakness in his right arm, and has been vomiting. He fell several times onto his knees last night due to feeling unsteady. Today he fell on his right ankle while he was letting his dog outside. He instantly felt pain in his ankle and struggled to get up after this happened. He denied any trauma to his head or anywhere else on his body when he fell. He had a friend drive him to the ER today. WBC 21.9, sodium 111, corrected sodium due to hyperglycemia 126, glucose 1040, GFR 33, creatinine 2.27, and EKG showed atrial flutter. Patient met SIRS criteria with leukocytosis and tachycardia but there is no clear sign of infection. Patient admitted for hyperosmolar hyperglycemic nonketotic syndrome and acute renal failure. HPI: PMH includes sleep apnea without CPAP use, previous stroke, previous [place], atrial fibrillation, high cholesterol, hypertension, gout, type II diabetes, and COPD. Is a previous smoker and currently uses marijuana. Patient stated that he has not taken his medication for his diabetes since December. When asked why he stopped taking them he said it was because he was hard headed and didn't want to. He says he has been hospitalized before with DKA due to not taking his diabetic medications. Patient stated that he was feeling better during the interview. The only pain he has is with his right ankle that he fell on and then his knees from falling at home last night. Source: patient, EMS notes reviewed Exam Limitations: no limitations Date Seen 08/02/21 Time Seen by a Provider: 03:15 Attending Physician Geovanna Inman DO PCP No,Local Physician Referring Physician Date of Admission Aug 02, 2021 at 15:34 Home Medications & Allergies Home Medications Reviewed patient Home Medication Reconciliation performed by pharmacy medication reconciliations arch support technician and/or nursing. Patients Allergies have been reviewed. Allergies Allergies Coded Allergies No Known Drug Allergies (Unverified02/26/14) Past Xgcbcdv-Iurmhj-Vwagci Hx Patient Social History Marrital Status: single Tobacco Use?: No Smoking Status: Former Smoker Smokeless Tobacco Frequency: Never a User Use of E-Cig and/or Vaping dev: No Substance use?: No Substance type: Marijuana Alcohol Use?: Yes Alcohol type: Beer Alcohol Frequency: Once in a while Pt feels they are or have been: No Immunizations Up To Date Tetanus Booster (TDap): Unknown Hepatitis A: No Hepatitis B: No Seasonal Allergies Seasonal Allergies: No Current Status Advance Directives: No Communicates: Verbally Primary Language: Angolan Preferred Spoken Language: Angolan Is interpretation needed?: No Implanted or Applied Medical D: None Past Medical History Surgeries: Tonsillectomy Sleep Apnea Currently Using CPAP: Yes Atrial Fibrillation, High Cholesterol, Hypertension Stroke Sexually Transmitted Disease: No HIV/AIDS: No Gout Diabetes, Insulin dep (Does not check blood sugars at home) Loss of Vision: Denies Hearing Impairment: Denies Blood Disorders: No Adverse Reaction/Blood Tranf: No PMHx: CVA CHF HTN DMII Family Medical History Coronary thrombosis 19 FATHER Diabetes mellitus G8 BROTHER FH: lung cancer 19 MOTHER (MOTHER FROM [place]) Hypercholesterolemia 19 FATHER Myocardial infarction 19 FATHER ( FROM [place]) Heart Disease, Cancer, Diabetes, Hypertension Review of Systems Constitutional: No dizziness, No fever; weakness EENTM: no symptoms reported Respiratory: No cough, No dyspnea on exertion, No short of breath Cardiovascular: No chest pain, No palpitations Gastrointestinal: No abdominal pain, No constipation, No diarrhea; vomiting (Has occured over the past two weeks, says it is worse when drinking cold beverages) Genitourinary: No dysuria, No frequency Musculoskeletal: joint pain (Bilateral knees are sore) Skin: no symptoms reported Psychiatric/Neurological: No Symptoms Reported Physical Exam Physical Exam Vital Signs Vital Signs - First Documented 08/02/21 08/02/21 12:50 16:55 Temp 36.5 Pulse 123 Resp 18 B/P (MAP) 132/82 (99) Pulse Ox 18 O2 Delivery Room Air Capillary Refill : Less Than 3 Seconds Height, Weight, BMI Height: 5'11.00" Weight: 358lbs. 1.0oz. 162.732849yt; 39.19 BMI Method: General Appearance: No Apparent Distress (Patient made jokes and was laughing throughout the interview), WD/WN Eyes: Bilateral Eye Normal Inspection HEENT: PERRL/EOMI Neck: Full Range of Motion, Normal Inspection, Non Tender, Supple Respiratory: Chest Non Tender, Lungs Clear, Normal Breath Sounds, No Accessory Muscle Use, No Respiratory Distress Cardiovascular: Regular Rate, Rhythm, No Edema, No Gallop, No JVD, No Murmur, Normal Peripheral Pulses Gastrointestinal: Normal Bowel Sounds, No Organomegaly, No Pulsatile Mass, Non Tender, Soft Extremity: Normal Capillary Refill, Normal Inspection, Normal Range of Motion, No Pedal Edema Neurologic/Psychiatric: Alert, Oriented x3, Normal Mood/Affect, online merchant II-XII Norm as Tested, Motor Weakness (Right hand was unable to form a fist, was not able to squeeze providers hand with his right hand) Skin: Ecchymosis (On left martínez, unable to see right martínez due to allie wrap) Results Results/Procedures Labs Laboratory Tests 08/02/21 13:10 08/02/21 17:42 Patient resulted labs reviewed. Assessment/Plan Admission Diagnosis Hyperosmolar hyperglycemic nonketotic syndrome and acute kidney failure Admission Status: Inpatient Order (span 2 midnights) Reason for Inpatient Admission: Patient needed to be admitted to ICU due to hyperosmolar hyperlgycemic syndrome wich requires an insulin drip. Assessment and Plan Assessment: Hyperglycemic hyperosmolar nonketotic syndrome Atrial flutter with rapid ventricular response Acute renal failure Closed right fibular fracture Hyponatremia Type II diabetes RONN COPD Gout High cholesterol HTN DVT prophylaxis Plan: Hyperglycemic hyperosmolar nonketotic syndrome - diagnosis was made due to glucose being over 900, bicarb over 15, and being non acidotic - IV normal saline was started in the ED - normal insulin was started in the ED - once glucose reaches 250 then normal saline can be switched to 5% dextrose Atrial flutter with rapid ventricular response - consulting with cardiology - adenosine restarted Acute renal failure - IV fluids started - monitor GFR and creatinine Closed right fibular fracture - ortho consulting - patient will need a plate for the fracture Hyponatremia - Na chloride was started - monitor labs Type II diabetes - normal insulin started - blood gluocse will be monitored - should not be eating until his gluocse drops RONN - needs to sleep with CPAP COPD - albuterol and ipratropium started DVT prophylaxis - apixaban started Ulcer prophylaxis - pantoprazole started Diagnosis/Problems Diagnosis/Problems (1) RONN (obstructive sleep apnea) (2) COPD (chronic obstructive pulmonary disease) (3) High cholesterol (4) Gout (5) Hyperglycemic hyperosmolar nonketotic coma Status: Acute (6) Acute renal failure Status: Acute Qualifiers: Acute renal failure type: unspecified Qualified Codes: N17.9 - Acute kidn ey failure, unspecified (7) Closed right fibular fracture Status: Acute Qualifiers: Encounter type: initial encounter Fibula location: distal Fracture morphology: other fracture Qualified Codes: S82.831A - Other fracture of upper and lower end of right fibula, initial encounter for closed fracture (8) T2DM (type 2 diabetes mellitus) Status: Chronic (9) HTN (hypertension) Status: Chronic (10) DVT prophylaxis Status: Acute (11) Hyponatremia (12) Atrial flutter GEOVANNA INMAN 08/04/21 0447: History of Present Illness HPI/Chief Complaint CC: Acute renal failure with hyperglycemia HPI: 56 yr old WM with a past medical history of diabetes, chronic kidney disease, and meth use in the past. He presented to the ER found to be in atrial flutter. Cardiology was consulted. Pt was found to have an ankle fracture. He was placed on anticoagulation, IV fluids, and insulin drip for severe hyperglycemia, acidosis, and hyponatremia. Currently he is doing much better and having no new problems. Source: patient, RN/MD, EMS notes reviewed Exam Limitations: no limitations Past Btpmzzd-Dseosv-Oizmmr Hx Patient Social History Marrital Status: single Employed/Student: unemployed Smoking Status: Current Everyday Smoker Substance use?: Yes Substance type: Amphetamines Past Medical History Pneumonia, COPD Coronary Artery Disease, High Cholesterol, Hypertension Neuropathy Degenerate Disk Disease, Arthritis Diabetes, Insulin dep (Does not check blood sugars at home) Family Medical History Coronary thrombosis 19 FATHER Diabetes mellitus G8 BROTHER FH: lung cancer 19 MOTHER (MOTHER FROM [place]) Hypercholesterolemia 19 FATHER Myocardial infarction 19 FATHER ( FROM [place]) Review of Systems Constitutional: see HPI, malaise, weakness EENTM: no symptoms reported Respiratory: dyspnea on exertion Cardiovascular: chest pain Gastrointestinal: no symptoms reported Genitourinary: no symptoms reported Musculoskeletal: joint pain (Bilateral knees are sore) Psychiatric/Neurological: No Symptoms Reported Physical Exam Physical Exam General Appearance: Anxious, Chronically ill, Mild Distress, Obese Eyes: Right Eye Normal Inspection, Right Eye PERRL HEENT: PERRL/EOMI, Normal ENT Inspection, Pharynx Normal, Moist Mucous Membranes Neck: Full Range of Motion, Normal Inspection, Non Tender Respiratory: Chest Non Tender, Lungs Clear, Normal Breath Sounds, No Accessory Muscle Use, No Respiratory Distress, Decreased Breath Sounds Cardiovascular: Regular Rate, Rhythm, No Edema, No Gallop, No JVD, No Murmur, Normal Peripheral Pulses Gastrointestinal: Normal Bowel Sounds, No Organomegaly, No Pulsatile Mass, Non Tender, Soft Back: Normal Inspection, No CVA Tenderness, No Vertebral Tenderness Extremity: Normal Capillary Refill, Normal Inspection, Normal Range of Motion, Non Tender, No Calf Tenderness, No Pedal Edema Neurologic/Psychiatric: Alert, Oriented x3, No Motor/Sensory Deficits, Normal Mood/Affect, online merchant II-XII Norm as Tested, Motor Weakness (Right hand was unable to form a fist, was not able to squeeze providers hand with his right hand) Skin: Normal Color, Warm/Dry Lymphatic: No Adenopathy Assessment/Plan Admission Diagnosis Assessment: Hyperglycemic hyperosmolar nonketotic syndrome Atrial flutter with rapid ventricular response Acute renal failure Closed right fibular fracture Hyponatremia Type II diabetes RONN COPD Gout High cholesterol HTN DVT prophylaxis Plan: Hyperglycemic hyperosmolar nonketotic syndrome - diagnosis was made due to glucose being over 900, bicarb over 15, and being non acidotic - IV normal saline was started in the ED - normal insulin was started in the ED - once glucose reaches 250 then normal saline can be switched to 5% dextrose Atrial flutter with rapid ventricular response - consulting with cardiology - adenosine restarted Acute renal failure - IV fluids started - monitor GFR and creatinine Closed right fibular fracture - ortho consulting - patient will need a plate for the fracture Hyponatremia - Na chloride was started - monitor labs Type II diabetes - normal insulin started - blood gluocse will be monitored - should not be eating until his gluocse drops RONN - needs to sleep with CPAP COPD - albuterol and ipratropium started DVT prophylaxis - apixaban started Ulcer prophylaxis - pantoprazole started Admission Status: Inpatient Order (span 2 midnights) Reason for Inpatient Admission: DKA Supervisory-Addendum Brief Verification & Attestation Participated in pt care: history, MDM, physical Personally performed: exam, history, MDM, supervision of care Care discussed with: Medical Student Procedures: n/a Results interpretation: Verified all documentation Verification and Attestation of Medical Student E/M Service A medical student performed and documented this service in my presence. I reviewed and verified all information documented by the medical student and made modifications to such information, when appropriate. I personally performed the physical exam and medical decision making. Geovanna Inman, Aug 04, 2021,04:44 OMAIRA CABRERA Aug 02, 2021 18:31 GEOVANNA INMAN DO Aug 04, 2021 04:47
[2021-08-02] MEDS: POTASSIUM CL 10MEQ/50ML IVPB 50 ML IV SCH ×3 (18:42→21:40)
[2021-08-02] MEDS: 1/2 NS IV SOLUTION 1,000 ML IV SCH ×2 (18:43→21:39)
[2021-08-02] MEDS: inSUlin REGULAR HUMAN VIAL 250 UNITS in NORMAL SALINE 250 ML IV SCH (18:44)
[2021-08-02 20:11] VITALS: BP 132/82
[2021-08-02] MEDS: DOCUSATE SODIUM 100 MG (COLACE) CAP PO SCH (20:15)
[2021-08-02] MEDS: APIXABAN 5 MG (ELIQUIS) TABLET PO SCH (20:15)
[2021-08-02] MEDS: SENNOSIDES 8.6 MG (SENOKOT) TAB PO SCH (20:16)
[2021-08-02] MEDS ORDERED: RT-ALBUTEROL/IPRATROPIUM 3 ML (DUONEB) VIAL INH PRN (20:30)
[2021-08-02 20:37] LABS: CALCIUM 8.3 MG/DL (8.5-10.1); CREATININE SERUM 2.36 MG/DL (0.60-1.30); POTASSIUM 3.3 MMOL/L (3.6-5.0)
[2021-08-02] MEDS: HYDROmorphone 2 MG/ML VIAL (DILAUDID) IVP PRN (23:27)
[2021-08-03 00:26] LABS: POTASSIUM 2.8 MMOL/L (3.6-5.0)
[2021-08-03 00:27] LABS: CALCIUM 8.3 MG/DL (8.5-10.1)
[2021-08-03 00:32] LABS: CREATININE SERUM 1.94 MG/DL (0.60-1.30)
[2021-08-03] MEDS: POTASSIUM CL 10MEQ/50ML IVPB 50 ML IV SCH ×11 (01:58→20:47)
[2021-08-03] MEDS: 1/2 NS IV SOLUTION 1,000 ML IV SCH ×5 (01:59→17:15)
[2021-08-03 05:07] LABS: BASOPHILS # (AUTO) 0.1 10^3/uL (0.0-0.1); BASOPHILS % (AUTO) 0 % (0-10); EOSINOPHILS # (AUTO) 0.2 10^3/uL (0.0-0.3); EOSINOPHILS % (AUTO) 1 % (0-10); HEMATOCRIT 41 % (40-54); HEMOGLOBIN 14.4 g/dL (13.3-17.7); LYMPHOCYTES # (AUTO) 2.5 10^3/uL (1.0-4.0); LYMPHOCYTES % (AUTO) 13 % (12-44); MEAN CORPUSCULAR HEMOGLOBIN 28 pg (25-34); MEAN CORPUSCULAR HGB CONC 35 g/dL (32-36); MEAN CORPUSCULAR VOLUME 80 fL (80-99); MEAN PLATELET VOLUME 12.1 fL (9.0-12.2); MONOCYTES # (AUTO) 1.5 10^3/uL (0.0-1.0); MONOCYTES % (AUTO) 8 % (0-12); NEUTROPHILS # (AUTO) 15.5 10^3/uL (1.8-7.8); NEUTROPHILS % (AUTO) 78 % (42-75); PLATELET COUNT 247 10^3/uL (130-400); WHITE BLOOD COUNT 19.9 10^3/uL (4.3-11.0)
[2021-08-03 05:23] LABS: ALBUMIN 3.5 GM/DL (3.2-4.5)
[2021-08-03 05:24] LABS: CALCIUM 8.3 MG/DL (8.5-10.1)
[2021-08-03] MEDS: KCL 20 MEQ TAB (K-DUR) PO SCH (05:25)
[2021-08-03 05:26] LABS: TOTAL PROTEIN 7.1 GM/DL (6.4-8.2)
[2021-08-03 05:27] LABS: BILIRUBIN,TOTAL 0.9 MG/DL (0.1-1.0); POTASSIUM 2.4 MMOL/L (3.6-5.0)
[2021-08-03 05:29] LABS: CREATININE SERUM 1.64 MG/DL (0.60-1.30)
[2021-08-03] MEDS ORDERED: MAGNESIUM 1 GM/100 ML IVPB 100 ML IV SCH (05:45)
[2021-08-03] MEDS: MAGNESIUM 1 GM/100 ML IVPB 100 ML IV SCH (06:29)
[2021-08-03] MEDS ORDERED: meTOprolol 5 MG/5 ML (LOPRESSOR) VIAL IV ONE (08:00)
--- NOTE | 2021-08-03 08:50 | Cardiology Progress Note ---
Subjective Date Seen by Provider: Aug 03, 2021 Time Seen by Provider: 08:47 Subjective/Events-last exam Patient is laying down in bed, feeling better today, still tachycardic Review of Systems General: No Chills, No Night Sweats; Fatigue; No Malaise, No Appetite, No Other HEENT: No Head Aches, No Visual Changes, No Eye Pain, No Ear Pain, No Dysphasia, No Sinus Congestion, No Post Nasal Drip, No Sore Throat, No Other Pulmonary: No Dyspnea, No Cough, No Pleuritic Chest Pain, No Other Cardiovascular: No: Chest Pain, Palpitations, Orthopnea, Paroxysmal Noc. Dyspnea, Edema, Lt Headedness, Other Objective-Cardiology Exam Last Set of Vital Signs Vital Signs 08/02/21 08/03/21 08/03/21 08/03/21 20:11 06:00 06:49 07:44 Temp 36.7 Pulse 125 Resp 11 B/P (MAP) 134/76 Pulse Ox 98 O2 Delivery Room Air FiO2 21 I&O Intake and Output 08/03/21 00:00 Intake Total 2490 ml Output Total 400 ml Balance 2090 ml Intake Oral 440 ml IV Total 2050 ml Output Urine Total 400 ml # Voids 1 Daily Weight Change No General: Alert, Oriented X3, Cooperative HEENT: Atraumatic, PERRLA Neck: Supple, No JVD, No Thyromegaly Lungs: Clear to Auscultation, Normal Air Movement Heart: Normal S1, Normal S2, No Murmurs, Other (Tachycardia) Abdomen: Normal Bowel Sounds, Soft, No Tenderness, No Hepatosplenomegaly, No Masses Extremities: No Clubbing, No Cyanosis, No Edema, Normal Pulses, No Tenderness/Swelling Skin: No Rashes, No Breakdown, No Significant Lesion Neuro: Normal Gait, Normal Speech, Strength at 5/5 X4 Ext, Normal Tone, Sensation Intact Psych/Mental Status: Mental Status NL, Mood NL Results Lab Laboratory Tests 08/02/21 13:10 08/02/21 17:42 08/02/21 20:10 08/02/21 21:49 08/03/21 00:10 08/03/21 04:14 A/P-Cardiology Admission Diagnosis Paroxysmal atrial fibrillation/flutter Congestive heart failure, chronic compensated left ventricular systolic dysfunction nonischemic cardiomyopathy Diabetic ketoacidosis Acute renal failure Assessment/Plan Paroxysmal atrial fibrillation, flutter, underwent cardioversion [place] [address] Storm. Had ablation done in December [address] Storm, currently tachycardic, I gave her adenosine 6 mg yesterday with short pauses did not show underlying flutter waves, still concern about underlying atrial flutter due to the persistent heart rate around 120. I given 1 dose of Lopressor IV is started Cardizem p.o., continue to monitor Diabetic hyperosmolar nonketotic hyperglycemia. Significant improvement but still blood sugar around 300, managed by medical team Acute renal failure, receiving IV fluid, monitor renal function Congestive heart failure, chronic compensated left ventricular systolic dy sfunction, nonischemic cardiomyopathy ejection fraction 20%, has been noncompliant with medication or LifeVest in the past. Mild coronary artery disease per cardiac catheterization done in December 2019. Continue to monitor History of CVA, received thrombolytic required rehabilitation Hypertension, restart home medication monitor blood pressure Hyperlipidemia, restart high-dose statin Baseline abnormal EKG with right bundle branch block and left anterior fascicular block Tobaccoism, educated on smoking cessation History of meth abuse. Patient reported that he did not use any illicit drugs recently History of noncompliance with medication NIKA SOSA MD Aug 03, 2021 08:50
[2021-08-03] MEDS: SENNOSIDES 8.6 MG (SENOKOT) TAB PO SCH ×2 (09:00→20:46)
[2021-08-03] MEDS: DOCUSATE SODIUM 100 MG (COLACE) CAP PO SCH ×2 (09:00→20:46)
--- NOTE | 2021-08-03 09:01 | Diagnostic Imaging Report ---
EXAMINATION: Chest 1 view HISTORY: Line placement. COMPARISON: 08/02/2021 FINDINGS: The lungs are clear without edema or pneumonia. No pleural effusion or pneumothorax. Heart size is normal. Left upper extremity peripherally inserted central venous catheter tip terminates in the superior vena cava. IMPRESSION: 1. Clear lungs. Dictated by: Dictated on workstation # [id number]
[2021-08-03] MEDS: PANTOPRAZOLE 40 MG (PROTONIX) TAB PO SCH (09:20)
[2021-08-03] MEDS: APIXABAN 5 MG (ELIQUIS) TABLET PO SCH ×2 (09:20→20:46)
[2021-08-03] MEDS ORDERED: KCL 20 MEQ TAB (K-DUR) PO ONE (09:45)
--- NOTE | 2021-08-03 09:59 | Tele-ICU Progress Note ---
Subjective Date Seen by a Provider: Aug 03, 2021 Time Seen by a Provider: 09:59 Sepsis Event Evaluation Height, Weight, BMI Height: 5'11.00" Weight: 358lbs. 1.0oz. 162.543180js; 39.19 BMI Method: Exam Exam Patient acknowledged, consented, and participated in this virtual visit which was conducted using real time audio/video Vital Signs Date Time Temp Pulse Resp B/P (MAP) Pulse Ox O2 Delivery O2 Flow Rate FiO2 08/03/21 09:00 121 12 127/92 79 Room Air 08/03/21 08:00 124 18 128/102 64 Room Air 08/03/21 07:44 36.7 08/03/21 07:00 125 15 102/71 85 Room Air 08/03/21 06:49 125 08/03/21 06:00 124 11 134/76 98 Room Air 08/03/21 05:00 126 29 108/75 93 Room Air 08/03/21 04:04 Room Air 08/03/21 04:00 123 14 128/76 93 Room Air 08/03/21 03:02 37.2 Room Air 08/03/21 03:00 125 13 120/70 91 Room Air 08/03/21 02:30 126 19 102/93 94 Room Air 08/03/21 01:10 125 19 139/96 94 Room Air 08/03/21 01:00 128 08/03/21 00:01 Room Air 08/03/21 00:00 125 28 103/73 93 Room Air 08/02/21 23:00 126 11 95/79 95 Room Air 08/02/21 22:44 37.5 08/02/21 22:00 128 102/84 97 Room Air 08/02/21 21:36 125 12 105/89 98 Room Air 08/02/21 21:21 98 Room Air 08/02/21 20:11 36.5 123 97 21 08/02/21 20:00 Room Air 08/02/21 20:00 129 13 113/90 96 Room Air 08/02/21 19:27 35.9 08/02/21 19:00 123 14 126/99 99 Room Air 08/02/21 19:00 Room Air 08/02/21 19:00 123 08/02/21 18:10 Room Air 08/02/21 18:00 121 17 105/75 95 Room Air 08/02/21 18:00 121 17 105/75 (85) 95 Room Air 08/02/21 17:30 122 9 128/92 (104) 97 Room Air 08/02/21 17:30 122 9 128/92 97 Room Air 08/02/21 17:15 118 08/02/21 17:00 36.4 08/02/21 17:00 121 15 138/96 94 Room Air 08/02/21 17:00 121 19 138/96 (110) 94 Room Air 08/02/21 16:55 36.5 121 18 122/88 97 Room Air 08/02/21 12:50 36.5 123 18 132/82 (99) 18 I & O 08/03/21 07:00 Intake Total 5060 ml Output Total 2425 ml Balance 2635 ml Height & Weight Height: 5'11.00" Weight: 358lbs. 1.0oz. [id number]; 39.19 BMI Method: General Appearance: No Apparent Distress (Patient made jokes and was laughing throughout the interview), WD/WN HEENT: PERRL/EOMI Neck: Full Range of Motion, Normal Inspection, Non Tender, Supple Respiratory: Chest Non Tender, Lungs Clear, Normal Breath Sounds, No Accessory Muscle Use, No Respiratory Distress Cardiovascular: Regular Rate, Rhythm, No Edema, No Gallop, No JVD, No Murmur, Normal Peripheral Pulses Capillary Refill: Less Than 3 Seconds Extremity: Normal Capillary Refill, Normal Inspection, Normal Range of Motion, No Pedal Edema Neurologic/Psychiatric: Alert, Oriented x3, Normal Mood/Affect, technical support specialist II-XII Norm as Tested, Motor Weakness (Right hand was unable to form a fist, was not able to squeeze providers hand with his right hand) Skin: Ecchymosis (On left martínez, unable to see right martínez due to allie wrap) Results Lab Laboratory Tests 08/02/21 13:10 08/02/21 17:42 08/02/21 20:10 08/02/21 21:49 08/03/21 00:10 08/03/21 04:14 Assessment/Plan Assessment/Plan (Tele-ICU Physician , Progress Note ) Available chart/ vitals / labs / Images reviewed Video assessment done using teleICU camera, rest of exam as per RN Discussed with RN , EXAM PER RN Events overnight : Afebrile FiO2 - I/O = Drips: 06/13 ns 250 Pressors: , hemodynamically stable Consultants: osmel Hospital course: 08/02- c/o weakness , falls --> HHS , ROSA MARIA A/P HHS -insulin drip continue -Continue hydration, replace lyt3es ROSA MARIA - dehydration - cont IVF - follow closely Leukocytosis - reactive ?, chest x-ray was normal , UA pending >off ABX , follow Weakness, falls - due to above - follow - CTH 08/02 - no acute findings h/o PAF -AC- eliquis - as per cards h/o CAD - ECHO 08/2020 - EF 50% ( Pseudohyponatremia ( corrected Na 133 ) - f mow corrected MA 130 - will changr to NS Lines : (Central Line Necessity Reviewed) Reddy: voiding OG: Nutrition: Analgesia: tylenol Anxiety/ delirium VTE Prophylaxis: eliquis Stress Ulcer Prophylaxis: ppi Plans in collaboration with bedside consultants and IM MDs. Discussed with RN to reach out if any questions or concerns A total of 33 minutes of critical care time was devoted to this patient today, required to treat and/or prevent further deterioration of critical care condition ( as above) . JUSTUS ROBBINS MD Aug 03, 2021 09:59
[2021-08-03] MEDS ORDERED: POTA-179 PO (10:19)
[2021-08-03] MEDS ORDERED: DULA1.5P2 IJ (10:19)
[2021-08-03] MEDS ORDERED: CLOP75TA28 PO (10:19)
[2021-08-03] MEDS ORDERED: ATOR80TA76 PO (10:19)
[2021-08-03] MEDS ORDERED: GBPN600T PO (10:19)
[2021-08-03] MEDS ORDERED: DULO30CA49 PO (10:19)
[2021-08-03] MEDS ORDERED: APIX5TAB PO (10:19)
--- NOTE | 2021-08-03 11:01 | Consultation - Ortho ---
Consult - Ortho Subjective Date of Exam 08/03/21 Chief Complaint Fracture right distal fibula HPI/Events since last exam Mr. Lacy is a 56-year-old white male who fell yesterday morning injured his right ankle. He was seen in the emergency room where he was evaluated and x- rayed noted to have a minimally displaced Fracture of his right distal fibula. He also had some small avulsions off the medial malleolus that may or may not be acute. Also noted was some thickening of his cortices at the junction of the mid and distal third of the tibia with some lucency medially. He denies any previous fracture or injury to the right lower extremity. He has had a right-sided stroke. No history of osteomyelitis in the right tibia. Medical, Surgical History Reviewed and no additions or changes Social History Reviewed and no additions or change Family History Reviewed and no additions or changes Review of Systems Reviewed and no additions or change Allergies: Coded Allergies: No Known Drug Allergies (Unverified , 02/26/14) Home Meds Reported Medications Atorvastatin Calcium (Atorvastatin Calcium) 80 Mg Tablet, 80 MG PO HS, TAB 08/03/21 Potassium Chloride (Potassium Chloride) 20 Meq Tab.er.prt, 20 MEQ PO DAILY 08/03/21 Gabapentin (Gabapentin) 600 Mg Tablet, 600 MG PO TID, TAB 08/03/21 Apixaban (Eliquis) 5 Mg Tablet, 5 MG PO BID, TAB 08/03/21 Clopidogrel Bisulfate (Clopidogrel) 75 Mg Tablet, 75 MG PO DAILY, TAB 08/03/21 Duloxetine HCl (Duloxetine HCl) 30 Mg Capsule.dr, 30 MG PO BID, CAP 08/03/21 Dulaglutide (Trulicity) 1.5 Mg/0.5 Ml Pen.injctr, 1.5 MG IJ WEEK, EA 08/03/21 Metolazone (Metolazone) 5 Mg Tablet, 5 MG PO DAILY, TAB 03/12/20 Furosemide (Furosemide) 40 Mg Tablet, 80 MG PO DAILY, TAB TAKES 2 (40MG) TABS 03/12/20 Carvedilol (Carvedilol) 6.25 Mg Tablet, 6.25 MG PO BID, TAB 03/12/20 Discontinued Reported Medications Gabapentin (Neurontin) 300 Mg Capsule, 300 MG PO TID, CAP 03/12/20 Discontinued Scripts Lancets/Blood Glucose Strips (Lancet 30G-Glucose Test Strip) 1 Each Combo..pkg, EACH ACHS for Hyperglycemia, #100 Prov:GAYATRI GILL DO 12/25/19 Lancets (Blood Lancets) 1 Each Each, EACH ACHS for Hyperglycemia, #100 Prov:GAYATRI GILL DO 12/25/19 Blood-Glucose Meter (Blood Glucose Meter) 1 Each Each, EACH ACHS for Hyperglycemia, #1 Prov:GAYATRI GILL DO 12/25/19 Pen Needle, Diabetic (Advocate Pen Needle) 1 Each Dis.needle, EACH ACHS for Hyperglycemia, #100 Prov:GAYATRI GILL DO 12/25/19 Insulin Aspart (Novolog Flexpen) 300 Units/3 Ml Solution, 4 UNITS SQ AC, #5 EA Prov:GAYATRI GILL DO 12/25/19 Insulin Detemir (Levemir Flextouch) 100 Unit/1 Ml Insuln.pen, 16 UNIT SQ HS, #5 EA Prov:GAYATRI GILL DO 12/25/19 Hydrocodone/Acetaminophen (Hydrocodone-Acetamin 5-325 mg) 1 Each Tablet, 1 TAB PO Q4H PRN for PAIN-MODERATE (5-7), #30 TAB Prov:GAYATRI GILL DO 12/25/19 Losartan Potassium (Losartan Potassium) 25 Mg Tablet, 25 MG PO DAILY, #30 TAB Prov:GAYATRI GILL DO 12/25/19 Diltiazem HCl (Diltiazem HCl) 60 Mg Tablet, 60 MG PO Q6HR, #120 TAB Prov:GAYATRI GILL DO 12/25/19 Ipratropium/Albuterol Sulfate (Iprat-Albut 0.5-3(2.5) mg/3 ml) 3 Ml Ampul.neb, 3 ML INH RTQ6HR, #90 INHALER Prov:GAYATRI GILL DO 12/25/19 Nicotine (Nicoderm Cq) 1 Each Patch.td24, 21 MG TD DAILY@0900, #30 PATCH Prov:GAYATRI GILL DO 12/25/19 Apixaban (Eliquis) 5 Mg Tablet, 5 MG PO BID, #60 TAB Prov:GAYATRI GILL DO 12/25/19 Clopidogrel Bisulfate (Clopidogrel) 75 Mg Tablet, 75 MG PO DAILY, #30 TAB Prov:GAYATRI GILL DO 12/25/19 Potassium Chloride (Potassium Chloride) 20 Meq Tab.er.prt, 20 MEQ PO BID, #60 TAB Prov:GAYATRI GILL DO 12/25/19 Atorvastatin Calcium (Atorvastatin Calcium) 80 Mg Tablet, 80 MG PO HS, #30 TAB Prov:GAYATRI GILL DO 12/25/19 Objective Exam Constitutional: [] HEENT: [] Neck: [] Cardiovascular: [] Respiratory: [] Gastrointestinal: [] Genitourinary: [] Skin: [] Back/Spine: [] Extremities: []Exam of the right lower extremity is very difficult as anywhere I touch in any motion he screams out in pain. He cannot localize where his pain is but states most of it is below his knee around the ankle. He can move his toes but does have altered sensation in his toes are little dusky. He has an abrasion medial malleolus that is not red or draining. He has pain over the distal fibula. I was able to move his hip and knee and again he had pain but he could not localize it to his hip or knee and there is no swelling at the knee hand there is really no pain at the hip except when I move the hip. Neurologic: [] Psychiatric: [] Hematologic/lymphatic/immunologic: [] Vital Signs Vital Signs Date Time Temp Pulse Resp B/P (MAP) Pulse Ox O2 Delivery O2 Flow Rate FiO2 08/03/21 10:00 122 18 116/75 97 Room Air 08/03/21 09:00 121 12 127/92 79 Room Air 08/03/21 08:00 124 18 128/102 64 Room Air 08/03/21 07:44 36.7 08/03/21 07:00 125 15 102/71 85 Room Air 08/03/21 06:49 125 08/03/21 06:00 124 11 134/76 98 Room Air 08/03/21 05:00 126 29 108/75 93 Room Air 08/03/21 04:04 Room Air 08/03/21 04:00 123 14 128/76 93 Room Air 08/03/21 03:02 37.2 Room Air 08/03/21 03:00 125 13 120/70 91 Room Air 08/03/21 02:30 126 19 102/93 94 Room Air 08/03/21 01:10 125 19 139/96 94 Room Air 08/03/21 01:00 128 08/03/21 00:01 Room Air 08/03/21 00:00 125 28 103/73 93 Room Air 08/02/21 23:00 126 11 95/79 95 Room Air 08/02/21 22:44 37.5 08/02/21 22:00 128 102/84 97 Room Air 08/02/21 21:36 125 12 105/89 98 Room Air 08/02/21 21:21 98 Room Air 08/02/21 20:11 36.5 123 97 21 08/02/21 20:00 Room Air 08/02/21 20:00 129 13 113/90 96 Room Air 08/02/21 19:27 35.9 08/02/21 19:00 123 14 126/99 99 Room Air 08/02/21 19:00 Room Air 08/02/21 19:00 123 08/02/21 18:10 Room Air 08/02/21 18:00 121 17 105/75 95 Room Air 08/02/21 18:00 121 17 105/75 (85) 95 Room Air 08/02/21 17:30 122 9 128/92 (104) 97 Room Air 08/02/21 17:30 122 9 128/92 97 Room Air 08/02/21 17:15 118 08/02/21 17:00 36.4 08/02/21 17:00 121 15 138/96 94 Room Air 08/02/21 17:00 121 19 138/96 (110) 94 Room Air 08/02/21 16:55 36.5 121 18 122/88 97 Room Air 08/02/21 12:50 36.5 123 18 132/82 (99) 18 I & O 08/03/21 07:00 Intake Total 5060 ml Output Total 2425 ml Balance 2635 ml Lab Results Laboratory Tests 08/02/21 13:10: White Blood Count 21.9H, Red Blood Count 5.65H, Hemoglobin 15.9, Hematocrit 47, Mean Corpuscular Volume 83, Mean Corpuscular Hemoglobin 28, Mean Corpuscular Hemoglobin Concent 34, Red Cell Distribution Width 13.3, Platelet Count 311, Mean Platelet Volume 12.4H, Immature Granulocyte % (Auto) 1, Neutrophils (%) (Auto) 86H, Lymphocytes (%) (Auto) 6L, Monocytes (%) (Auto) 7, Eosinophils (%) (Auto) 0, Basophils (%) (Auto) 0, Neutrophils # (Auto) 18.8H, Lymphocytes # (Auto) 1.4, Monocytes # (Auto) 1.4H, Eosinophils # (Auto) 0.1, Basophils # (Auto) 0.1, Immature Granulocyte # (Auto) 0.1, Neutrophils % (Manual) 87, Lymphocytes % (Manual) 7, Monocytes % (Manual) 5, Eosinophils % (Manual) 1, Blood Morphology Comment NORMAL, Sodium Level 111*L, Potassium Level 4.1, Chloride Level 66L, Carbon Dioxide Level 22, Anion Gap 23H, Blood Urea Nitrogen 68H, Creatinine 2.64H, Estimat Glomerular Filtration Rate 28, BUN/Creatinine Ratio 26, Glucose Level 1040*H, Calcium Level 8.8, Corrected Calcium 8.9, Total Bilirubin 1.8H, Aspartate Amino Transf (AST/SGOT) 23, Alanine Aminotransferase (ALT/SGPT) 32, Alkaline Phosphatase 126, Total Protein 8.2, Albumin 3.9, Beta- Hydroxybutyrate (Chem panel) 1.59H 08/02/21 14:24: Blood Gas Puncture Site LEFT BRACHIAL, Blood Gas Patient Temperature 36.5, Arterial Blood pH 7.43, Arterial Blood Partial Pressure CO2 44, Arterial Blood Partial Pressure O2 59L, Arterial Blood HCO3 29H, Arterial Blood Total CO2 30.6, Arterial Blood Oxygen Saturation 93L, Arterial Blood Base Excess 5.0H, Mike Test YES-POS, Blood Gas Ventilator Setting NO, Blood Gas Inspired Oxygen 0 08/02/21 17:42: Sodium Level 117*L, Potassium Level 2.9L, Chloride Level 73L, Carbon Dioxide Level 25, Anion Gap 19H, Blood Urea Nitrogen 64H, Creatinine 2.27H, Estimat Glomerular Filtration Rate 33, BUN/Creatinine Ratio 28, Glucose Level 752*H, Calcium Level 8.4L, Beta-Hydroxybutyrate (Chem panel) 0.12 08/02/21 20:10: Sodium Level 119*L, Potassium Level 3.3L, Chloride Level 75L, Carbon Dioxide Level 24, Anion Gap 20H, Blood Urea Nitrogen 62H, Creatinine 2.36H, Estimat Glomerular Filtration Rate 32, BUN/Creatinine Ratio 26, Glucose Level 661*H, Calcium Level 8.3L 08/02/21 21:48: Glucometer 542*H 08/02/21 21:49: Glucose Level 558*H 08/02/21 22:49: Glucometer 537*H 08/02/21 23:57: Glucometer 486*H 08/03/21 00:10: Sodium Level 120*L, Potassium Level 2.8L, Chloride Level 80L, Carbon Dioxide Level 27, Anion Gap 13, Blood Urea Nitrogen 64H, Creatinine 1.94H, Estimat Glomerular Filtration Rate 40, BUN/Creatinine Ratio 33, Glucose Level 475*H, Calcium Level 8.3L 08/03/21 01:07: Glucometer 539*H 08/03/21 01:56: Glucometer 438*H 08/03/21 02:50: Glucometer 318H 08/03/21 04:01: Glucometer 342H 08/03/21 04:14: White Blood Count 19.9H, Red Blood Count 5.12, Hemoglobin 14.4, Hematocrit 41, Mean Corpuscular Volume 80, Mean Corpuscular Hemoglobin 28, Mean Corpuscular Hemoglobin Concent 35, Red Cell Distribution Width 13.1, Platelet Count 247, Mean Platelet Volume 12.1, Immature Granulocyte % (Auto) 1, Neutrophils (%) (Auto) 78H, Lymphocytes (%) (Auto) 13, Monocytes (%) (Auto) 8, Eosinophils (%) (Auto) 1, Basophils (%) (Auto) 0, Neutrophils # (Auto) 15.5H, Lymphocytes # (Auto) 2.5, Monocytes # (Auto) 1.5H, Eosinophils # (Auto) 0.2, Basophils # (Auto) 0.1, Immature Granulocyte # (Auto) 0.2H, Sodium Level 124*L, Potassium Level 2.4*L, Chloride Level 83L, Carbon Dioxide Level 27, Anion Gap 14, Blood Urea Nitrogen 57H, Creatinine 1.64H, Estimat Glomerular Filtration Rate 49, BUN/Creatinine Ratio 35, Glucose Level 315H, Calcium Level 8.3L, Corrected Calcium 8.7, Magnesium Level 2.1, Total Bilirubin 0.9, Aspartate Amino Transf (AST/SGOT) 18, Alanine Aminotransferase (ALT/SGPT) 25, Alkaline Phosphatase 99, Total Protein 7.1, Albumin 3.5, Beta-Hydroxybutyrate (Chem panel) 0.44H 2/22/22 05:01: Glucometer 329H 08/03/21 06:17: Glucometer 306H 08/03/21 07:46: Glucometer 292H 08/03/21 08:44: Glucometer 278H 08/03/21 09:38: Glucometer 242H Imaging X-rays were reviewed which shows a minimally displaced distal fibula fracture that Is shifted about 2 to 3 mm laterally. No angulation. No posterior displacement. No widening of the syndesmosis. Ankle mortise is symmetrical with no widening of the medial clear space. Tibial cortical thickening with radiolucent medial at the junction of the mid and distal third with no evidence of fracture.Findings consistent with a previous fracture but the patient denies any previous injury infection Or problems with the right leg before the fall Assessment and Plan Assessment Fracture right distal fibula Problem List Fracture right distal fibula minimally displaced Cortical thickening and lucency medial cortex junction of the mid and distal third right tibia Plan The above was discussed with the patient. He was placed in a posterior splint in the ER which I removed. I redressed his medial wound with antibiotic ointment, Adaptic and 4 x 4's. I then applied a short leg cast. I tried to get him up to neutral but he fought me the whole time so his ankles actually plantar flexed about 10 to 15 degrees. But he was comfortable after we finished. I bivalved his cast and wrapped it with Davonte wraps. I talked to him about his tibia and he denies a previous fracture infection but his x-rays certainly look like he has had a previous tibia fracture. Since he has a negative history I would recommend an MRI of the tibia at some point during his hospitalization to determine if this is a osteomyelitis were dealing with or a possible tumor.There is really no destruction of the cortex there is just a radiolucency in the medial cortex but Cortex is circumferentially thickened in that region. It looks like an old tibia fracture and it could be as I do not think the patient is a very good historian.Continue elevation of the ankle, nonweightbearing. I think once he gets out of the ICU on a regular floor we can probably go ahead and proceed with an MRI prior to discharge.D epending on findings we may need transfer to a facility such as for further work-up Final Diagonsis Minimally displaced fracture right distal fibula with Possible fracture of the tibia proximal to the ankle. Level of the visit: Level 3 RADHA WHITFIELD MD Aug 03, 2021 11:01
[2021-08-03 11:18] LABS: CALCIUM 8.4 MG/DL (8.5-10.1); CREATININE SERUM 1.54 MG/DL (0.60-1.30)
[2021-08-03 11:24] LABS: POTASSIUM 2.5 MMOL/L (3.6-5.0)
[2021-08-03 11:34] LABS: BILIRUBIN,URINE NEGATIVE (NEGATIVE); CLARITY,URINE SL CLOUDY; COLOR,URINE YELLOW; GLUCOSE, URINE (UA) 1+ (NEGATIVE); KETONES,URINE NEGATIVE (NEGATIVE); LEUKOCYTE ESTERASE ,URINE 2+ (NEGATIVE); NITRITE,URINE NEGATIVE (NEGATIVE); PROTEIN,URINE TRACE (NEGATIVE)
[2021-08-03 11:54] LABS: BACTERIA,URINE FEW /HPF
--- NOTE | 2021-08-03 12:16 | Progress Note - Hospitalist ---
OMAIRA CABRERA 08/03/21 1216: Subjective HPI/CC On Admission Date Seen by Provider: Aug 03, 2021 Time Seen by Provider: 09:30 CC: Delon is a 56yo M who presented to the ER this evening with ankle pain. For the past two weeks he has been feeling off balance, had weakness in his right arm, and has been vomiting. He fell several times onto his knees last night due to feeling unsteady. Today he fell on his right ankle while he was letting his dog outside. He instantly felt pain in his ankle and struggled to get up after this happened. He denied any trauma to his head or anywhere else on his body when he fell. He had a friend drive him to the ER today. WBC 21.9, sodium 111, corrected sodium due to hyperglycemia 126, glucose 1040, GFR 33, creatinine 2.27, and EKG showed atrial flutter. Patient met SIRS criteria with leukocytosis and tachycardia but there is no clear sign of infection. Patient admitted for hyperosmolar hyperglycemic nonketotic syndrome and acute renal failure. HPI: PMH includes sleep apnea without CPAP use, previous stroke, previous NC, atrial fibrillation, high cholesterol, hypertension, gout, type II diabetes, and COPD. Is a previous smoker and currently uses marijuana. Patient stated that he has not taken his medication for his diabetes since December. When asked why he stopped taking them he said it was because he was hard headed and didn't want to. He says he has been hospitalized before with DKA due to not taking his diabetic medications. Patient stated that he was feeling better during the interview. The only pain he has is with his right ankle that he fell on and then his knees from falling at home last night. Subjective/Events-last exam Patient was awake and very talkative this morning. Reports that his ankle is still bothering him as well as his knees from falling. Patient says he feels better than yesterday and that he has regained some strength. Glucose was down to 292 today. Review of Systems General: No Chills; Fatigue HEENT: No Head Aches; Visual Changes (Patient says he hasn't been able to see as well over the past few weeks) Pulmonary: No Dyspnea, No Cough Cardiovascular: No: Chest Pain, Palpitations Gastrointestinal: Nausea, Vomiting; No: Diarrhea, Constipation Genitourinary: No Dysuria Musculoskeletal: leg pain (bilateral knees ache) Neurological: Weakness Objective Exam Vital Signs Vital Signs Date Time Temp Pulse Resp B/P (MAP) Pulse Ox O2 Delivery O2 Flow Rate FiO2 08/03/21 12:51 128 08/03/21 12:27 36.6 08/03/21 12:00 16 115/93 94 Room Air 08/02/21 20:11 21 Capillary Refill : Less Than 3 Seconds General Appearance: No Apparent Distress, WD/WN HEENT: PERRL/EOMI Neck: Full Range of Motion, Normal Inspection, Non Tender, Supple Respiratory: Chest Non Tender, Lungs Clear, Normal Breath Sounds, No Accessory Muscle Use, No Respiratory Distress Cardiovascular: Regular Rate, Rhythm, No Edema, No Gallop, No JVD, No Murmur, Normal Peripheral Pulses Gastrointestinal: Normal Bowel Sounds, No Organomegaly, No Pulsatile Mass, Non Tender, Soft Extremity: Normal Capillary Refill, Normal Inspection, Normal Range of Motion, Non Tender, No Calf Tenderness, No Pedal Edema Neurologic/Psychiatric: Alert, Oriented x3, Motor Weakness (Right hand has 4/5 muscle strength today, patient was able to make a fist with his right hand which he wasn't able to do yesterday) Skin: Normal Color, Warm/Dry Results/Procedures Lab Laboratory Tests 08/02/21 13:10 08/02/21 17:42 08/02/21 20:10 08/02/21 21:49 08/03/21 00:10 08/03/21 04:14 08/03/21 09:48 Patient resulted labs reviewed. Assessment/Plan Assessment and Plan Assess & Plan/Chief Complaint Assessment: Hyperglycemic hyperosmolar nonketotic syndrome Atrial flutter with rapid ventricular response Acute renal failure Closed right fibular fracture Hyponatremia Leukocytosis Type II diabetes RONN COPD Gout High cholesterol HTN DVT prophylaxis Noncompliance Plan: Hyperglycemic hyperosmolar nonketotic syndrome - diagnosis was made due to glucose being over 900, bicarb over 15, and being non acidotic - once glucose reaches 250 then normal saline can be switched to 5% dextrose - normal insulin drip is still going Atrial flutter with rapid ventricular response - consulting with cardiology - Vicky restarted Acute renal failure - IV fluids started - GFR improved to 53 and creatinine improved to 1.54 Closed right fibular fracture - ortho consulting - patient will need a plate for the fracture Hyponatremia - Na chloride will be continued - Na is now 127 Leukocytosis - WBC has decreased to 19.9 today - this is possibly just reactive from the severely elevated glucose - continue to monitor labs Type II diabetes - normal insulin started - blood glucose will be monitored - should not be eating until his glucose drops RONN - needs to sleep with CPAP COPD - albuterol and ipratropium started DVT prophylaxis - apixaban started Ulcer prophylaxis - pantoprazole started Diagnosis/Problems Diagnosis/Problems (1) RONN (obstructive sleep apnea) (2) COPD (chronic obstructive pulmonary disease) (3) High cholesterol (4) Gout (5) Hyperglycemic hyperosmolar nonketotic coma Status: Acute (6) Acute renal failure Status: Acute Qualifiers: Qualified Codes: N17.9 - Acute kidney failure, unspecified (7) Closed right fibular fracture Status: Acute Qualifiers: Qualified Codes: S82.831A - Other fracture of upper and lower end of right fibula, initial encounter for closed fracture (8) T2DM (type 2 diabetes mellitus) Status: Chronic (9) HTN (hypertension) Status: Chronic (10) DVT prophylaxis Status: Acute (11) Hyponatremia (12) Atrial flutter (13) Noncompliance (14) Leukocytosis GEOVANNA GILL DO 08/04/21 0545: Subjective Subjective/Events-last exam Patient doing better Pain control Reviewed labs Blood sugar improved on insulin drip Review of Systems General: Fatigue, Malaise Objective Exam General Appearance: No Apparent Distress, WD/WN, Chronically ill Respiratory: Lungs Clear, Normal Breath Sounds Cardiovascular: Regular Rate, Rhythm Neurologic/Psychiatric: Alert, Oriented x3, No Motor/Sensory Deficits, Normal Mood/Affect Assessment/Plan Assessment and Plan Assess & Plan/Chief Complaint Insulin drip Monitor closely Supervisory-Addendum Brief Verification & Attestation Participated in pt care: history, MDM, physical Personally performed: exam, history, MDM, supervision of care Care discussed with: Medical Student Procedures: n/a Results interpretation: Verified all documentation Verification and Attestation of Medical Student E/M Service A medical student performed and documented this service in my presence. I reviewed and verified all information documented by the medical student and made modifications to such information, when appropriate. I personally performed the physical exam and medical decision making. Geovanna Gill, Aug 04, 2021,05:44 OMAIRA CABRERA Aug 03, 2021 12:16 GEOVANNA GILL DO Aug 04, 2021 05:45
[2021-08-03] MEDS: NS IV 1000 ML 1,000 ML IV SCH ×2 (14:01→20:47)
[2021-08-03 15:57] LABS: POTASSIUM 3.4 MMOL/L (3.6-5.0)
[2021-08-03 15:58] LABS: CALCIUM 8.2 MG/DL (8.5-10.1)
[2021-08-03 16:03] LABS: CREATININE SERUM 1.44 MG/DL (0.60-1.30)
[2021-08-03] MEDS: inSUlin REGULAR HUMAN VIAL 250 UNITS in NORMAL SALINE 250 ML IV SCH (18:12)
[2021-08-03 22:09] LABS: POTASSIUM 3.3 MMOL/L (3.6-5.0)
[2021-08-03 22:10] LABS: CALCIUM 8.1 MG/DL (8.5-10.1)
[2021-08-03 22:14] LABS: CREATININE SERUM 1.48 MG/DL (0.60-1.30)
[2021-08-04] MEDS: POTASSIUM CL 10MEQ/50ML IVPB 50 ML IV SCH ×5 (01:07→05:46)
[2021-08-04] MEDS: HYDROmorphone 2 MG/ML VIAL (DILAUDID) IVP PRN (01:24)
[2021-08-04 04:26] LABS: BASOPHILS # (AUTO) 0.1 10^3/uL (0.0-0.1); BASOPHILS % (AUTO) 0 % (0-10); EOSINOPHILS # (AUTO) 0.1 10^3/uL (0.0-0.3); EOSINOPHILS % (AUTO) 1 % (0-10); HEMATOCRIT 38 % (40-54); HEMOGLOBIN 13.1 g/dL (13.3-17.7); LYMPHOCYTES # (AUTO) 2.1 10^3/uL (1.0-4.0); LYMPHOCYTES % (AUTO) 14 % (12-44); MEAN CORPUSCULAR HEMOGLOBIN 29 pg (25-34); MEAN CORPUSCULAR HGB CONC 35 g/dL (32-36); MEAN CORPUSCULAR VOLUME 83 fL (80-99); MEAN PLATELET VOLUME 11.3 fL (9.0-12.2); MONOCYTES # (AUTO) 1.2 10^3/uL (0.0-1.0); MONOCYTES % (AUTO) 8 % (0-12); NEUTROPHILS # (AUTO) 11.8 10^3/uL (1.8-7.8); NEUTROPHILS % (AUTO) 77 % (42-75); PLATELET COUNT 200 10^3/uL (130-400); WHITE BLOOD COUNT 15.3 10^3/uL (4.3-11.0)
[2021-08-04 04:39] LABS: ALBUMIN 3.2 GM/DL (3.2-4.5); POTASSIUM 3.1 MMOL/L (3.6-5.0)
[2021-08-04 04:40] LABS: CALCIUM 8.2 MG/DL (8.5-10.1)
[2021-08-04 04:41] LABS: TOTAL PROTEIN 6.7 GM/DL (6.4-8.2)
[2021-08-04 04:43] LABS: BILIRUBIN,TOTAL 0.7 MG/DL (0.1-1.0)
[2021-08-04 04:45] LABS: CREATININE SERUM 1.31 MG/DL (0.60-1.30)
[2021-08-04 04:48] LABS: MAGNESIUM 2.2 MG/DL (1.6-2.4)
[2021-08-04] MEDS: MAGNESIUM 1 GM/100 ML IVPB 100 ML IV SCH (05:40)
[2021-08-04] MEDS: KCL 20 MEQ TAB (K-DUR) PO SCH (05:46)
[2021-08-04] MEDS ORDERED: KCL 20 MEQ TAB (K-DUR) PO ONE ×2 (06:00→08:00)
[2021-08-04] MEDS ORDERED: cefTRIAXone 1 GM PRE-MIX 50 ML IV SCH (07:15)
[2021-08-04] MEDS: DOCUSATE SODIUM 100 MG (COLACE) CAP PO SCH ×2 (08:01→20:41)
[2021-08-04] MEDS: SENNOSIDES 8.6 MG (SENOKOT) TAB PO SCH ×2 (08:02→20:40)
[2021-08-04] MEDS: APIXABAN 5 MG (ELIQUIS) TABLET PO SCH ×2 (08:02→20:40)
[2021-08-04] MEDS: PANTOPRAZOLE 40 MG (PROTONIX) TAB PO SCH (08:02)
[2021-08-04] MEDS: cefTRIAXone 1 GM PRE-MIX 50 ML IV SCH (08:04)
[2021-08-04] MEDS: dilTIAZem120 MG (CARDIZEM CD) CAP PO SCH (08:45)
--- NOTE | 2021-08-04 09:05 | Cardiology Progress Note ---
Subjective Date Seen by Provider: Aug 04, 2021 Time Seen by Provider: 09:03 Subjective/Events-last exam Patient is laying down in bed, feeling better. No new complaint. No chest pain. Review of Systems General: No Chills, No Night Sweats, No Fatigue, No Malaise, No Appetite, No Other HEENT: No Head Aches, No Visual Changes, No Eye Pain, No Ear Pain, No Dysphasia, No Sinus Congestion, No Post Nasal Drip, No Sore Throat, No Other Pulmonary: No Dyspnea, No Cough, No Pleuritic Chest Pain, No Other Cardiovascular: No: Chest Pain, Palpitations, Orthopnea, Paroxysmal Noc. Dyspnea, Edema, Lt Headedness, Other Objective-Cardiology Exam Last Set of Vital Signs Vital Signs 08/02/21 08/04/21 08/04/21 08/04/21 20:11 07:41 08:00 08:16 Temp 37.1 Pulse 122 Resp 21 B/P (MAP) 102/84 Pulse Ox 98 O2 Delivery Room Air FiO2 21 I&O Intake and Output 08/04/21 00:00 Intake Total 5870 ml Output Total 4575 ml Balance 1295 ml Intake Oral 2570 ml IV Total 3300 ml Output Urine Total 4575 ml # Voids 1 General: Alert, Oriented X3, Cooperative HEENT: Atraumatic, PERRLA Neck: Supple, No JVD, No Thyromegaly Lungs: Clear to Auscultation, Normal Air Movement Heart: Normal S1, Normal S2, No Murmurs, Other (Tachycardia) Abdomen: Normal Bowel Sounds, Soft, No Tenderness, No Hepatosplenomegaly, No Masses Extremities: No Clubbing, No Cyanosis, No Edema, Normal Pulses, No Tenderness/Swelling Skin: No Rashes, No Breakdown, No Significant Lesion Neuro: Normal Gait, Normal Speech, Strength at 5/5 X4 Ext, Normal Tone, Sensation Intact Psych/Mental Status: Mental Status NL, Mood NL Results Lab Laboratory Tests 08/03/21 09:48 08/03/21 15:33 08/03/21 21:40 08/04/21 04:10 A/P-Cardiology Admission Diagnosis Paroxysmal atrial fibrillation/flutter Congestive heart failure, chronic compensated left ventricular systolic dysfunction nonischemic cardiomyopathy Diabetic ketoacidosis Acute renal failure Assessment/Plan Paroxysmal atrial fibrillation, flutter, underwent cardio[place] [address] Storm. Had ablation done in December [address] Storm, currently tachycardic, currently in atrial flutter with variable response. I am planning to do MAMADOU with cardioversion in the morning. Diabetic hyperosmolar nonketotic hyperglycemia. Significant improvement, managed by medical team Acute renal failure, receiving IV fluid, monitor renal function Congestive heart failure, chronic compensated left ventricular systolic dysfunction, nonischemic cardiomyopathy ejection fraction 20%, has been noncompliant with medication or LifeVest in the past. Mild coronary artery disease per cardiac catheterization done in December 2019. Continue to monitor History of CVA, received thrombolytic required rehabilitation Hypertension, monitor blood pressure Hyperlipidemia, monitor lipids Baseline abnormal EKG with right bundle branch block and left anterior fascicular block Tobaccoism, educated on smoking cessation History of meth abuse. Patient reported that he did not use any illicit drugs recently History of noncompliance with medication NIKA SOSA MD Aug 04, 2021 09:05
--- NOTE | 2021-08-04 09:17 | Tele-ICU Progress Note ---
Subjective Date Seen by a Provider: Aug 04, 2021 Time Seen by a Provider: 09:17 Sepsis Event Evaluation Height, Weight, BMI Height: 5'11.00" Weight: 358lbs. 1.0oz. 162.193808fr; 39.19 BMI Method: Exam Exam Patient acknowledged, consented, and participated in this virtual visit which was conducted using real time audio/video Vital Signs Date Time Temp Pulse Resp B/P (MAP) Pulse Ox O2 Delivery O2 Flow Rate FiO2 08/04/21 09:00 114 25 135/72 94 Room Air 08/04/21 08:16 Room Air 08/04/21 08:00 122 21 102/84 98 Room Air 08/04/21 07:41 37.1 08/04/21 07:33 99 Room Air 08/04/21 07:00 104 11 135/88 100 Room Air 08/04/21 07:00 133 08/04/21 06:00 130 25 127/91 100 Room Air 08/04/21 05:00 117 16 131/61 100 Room Air 08/04/21 04:29 Room Air 08/04/21 04:00 110 14 115/78 97 Room Air 08/04/21 03:07 36.7 Room Air 08/04/21 03:00 126 28 112/81 88 Room Air 08/04/21 02:02 121 16 140/94 99 Room Air 08/04/21 01:53 125 25 127/76 96 Room Air 08/04/21 01:00 116 08/04/21 01:00 118 19 109/76 97 Room Air 08/04/21 00:07 129 11 124/82 99 Room Air 08/04/21 00:00 Room Air 08/03/21 23:05 37.0 Room Air 08/03/21 23:00 116 26 125/78 97 Room Air 08/03/21 22:00 115 21 102/66 86 Room Air 08/03/21 21:00 131 19 121/90 100 Room Air 08/03/21 20:00 Room Air 08/03/21 20:00 131 22 118/77 99 Room Air 08/03/21 19:00 129 08/03/21 19:00 37.1 Room Air 08/03/21 19:00 129 15 105/56 97 Room Air 08/03/21 18:00 128 18 124/83 97 Room Air 08/03/21 17:00 130 38 132/94 97 Room Air 08/03/21 16:00 Room Air 08/03/21 16:00 129 9 105/83 96 Room Air 08/03/21 15:59 36.7 08/03/21 15:00 129 19 104/59 94 Room Air 08/03/21 14:00 129 15 129/95 95 Room Air 08/03/21 13:00 129 16 118/89 97 Room Air 08/03/21 12:51 128 08/03/21 12:27 36.6 08/03/21 12:00 125 16 115/93 94 Room Air 08/03/21 12:00 Room Air 08/03/21 11:00 123 17 127/90 96 Room Air 08/03/21 10:00 122 18 116/75 97 Room Air I & O 08/04/21 07:00 Intake Total 5400 ml Output Total 3975 ml Balance 1425 ml Height & Weight Height: 5'11.00" Weight: 358lbs. 1.0oz. 162.012030nu; 39.19 BMI Method: General Appearance: No Apparent Distress, WD/WN, Chronically ill HEENT: PERRL/EOMI, Normal ENT Inspection, Pharynx Normal, Moist Mucous Membranes Neck: Full Range of Motion, Normal Inspection, Non Tender Respiratory: Lungs Clear, Normal Breath Sounds Cardiovascular: Regular Rate, Rhythm Capillary Refill: Less Than 3 Seconds Extremity: Normal Capillary Refill, Normal Inspection, Normal Range of Motion, Non Tender, No Calf Tenderness, No Pedal Edema Neurologic/Psychiatric: Alert, Oriented x3, No Motor/Sensory Deficits, Normal Mood/Affect Skin: Normal Color, Warm/Dry Lymphatic: No Adenopathy Results Lab Laboratory Tests 08/02/21 13:10 08/02/21 17:42 08/02/21 20:10 08/02/21 21:49 08/03/21 00:10 08/03/21 04:14 08/03/21 09:48 08/03/21 15:33 08/03/21 21:40 08/04/21 04:10 Assessment/Plan Assessment/Plan (Tele-ICU Physician , Progress Note ) Available chart/ vitals / labs / Images reviewed Video assessment done using teleICU camera, rest of exam as per RN Discussed with RN , EXAM PER RN Events overnight : Afebrile FiO2 - I/O = Drips: 06/13 ns 250 Pressors: , hemodynamically stable Consultants: osmel Hospital course: 08/02- c/o weakness , falls --> HHS , ROSA MARIA A/P HHS -insulin drip to sto sherif decided on home regiment - one dose -Continue hydration, replace lytes ROSA MARIA - dehydration - cont IVF - follow closely , decrease to 50 Leukocytosis - reactive ?, chest x-ray was normal , UA pending >off ABX , follow Weakness, falls - due to above - follow - CTH 08/02 - no acute findings h/o PAF -AC- eliquis - as per cards - possivble CV tomorrow h/o CAD - ECHO 08/2020 - EF 50% ( Pseudohyponatremia ( corrected Na 133 ) - f mow corrected MA 130 - will changr to NS Lines : (Central Line Necessity Reviewed) Reddy: voiding OG: Nutrition: Analgesia: tylenol Anxiety/ delirium VTE Prophylaxis: eliquis Stress Ulcer Prophylaxis: ppi Plans in collaboration with bedside consultants and IM MDs. Discussed with RN to reach out if any questions or concerns A total of 33 minutes of critical care time was devoted to this patient today, required to treat and/or prevent further deterioration of critical care condition ( as above) . JUSTUS ROBBINS MD Aug 04, 2021 09:17
[2021-08-04] MEDS: NS IV 1000 ML 1,000 ML IV SCH ×2 (09:32→17:03)
[2021-08-04 10:18] LABS: CALCIUM 8.1 MG/DL (8.5-10.1); CREATININE SERUM 1.27 MG/DL (0.60-1.30); POTASSIUM 3.5 MMOL/L (3.6-5.0)
--- NOTE | 2021-08-04 11:51 | Progress Note - Hospitalist ---
OMAIRA CABRERA 08/04/21 1151: Subjective HPI/CC On Admission Date Seen by Provider: Aug 04, 2021 Time Seen by Provider: 10:00 CC: Acute renal failure with hyperglycemia HPI: 56 yr old WM with a past medical history of diabetes, chronic kidney disease, and meth use in the past. He presented to the ER found to be in atrial flutter. Cardiology was consulted. Pt was found to have an ankle fracture. He was placed on anticoagulation, IV fluids, and insulin drip for severe hyperglycemia, acidosis, and hyponatremia. Currently he is doing much better and having no new problems. Subjective/Events-last exam Delon is still having pain in his right ankle and says it hurts with the slightest touch. Orthopedics came in and rewrapped his ankle and put a short leg cast on. Ortho is concerned that the X-ray may show a possible osteomyelitis and is wanting to get an MRI ordered once the patient is transferred out of the ICU. Ceftriaxone was started to cover causes of osteomyelitis. Cardiology increased the patients dose of diltiazem and has scheduled him to have cardioversion done tomorrow morning 08/05/21. An x-ray of the patients lungs showed clear lungs with no other findings Review of Systems General: No Chills, No Fatigue HEENT: No Head Aches, No Visual Changes Pulmonary: No Dyspnea, No Cough Cardiovascular: No: Chest Pain, Palpitations Gastrointestinal: No: Nausea, Vomiting, Diarrhea, Constipation Musculoskeletal: leg pain (right ankle pain) Neurological: No: Weakness, Confusion Objective Exam Vital Signs Vital Signs Date Time Temp Pulse Resp B/P (MAP) Pulse Ox O2 Delivery O2 Flow Rate FiO2 08/04/21 11:00 112 15 117/76 99 Room Air 08/04/21 07:41 37.1 08/02/21 20:11 21 Capillary Refill : Less Than 3 Seconds General Appearance: No Apparent Distress, WD/WN HEENT: PERRL/EOMI Neck: Full Range of Motion, Normal Inspection, Non Tender, Supple Respiratory: Chest Non Tender, Lungs Clear, Normal Breath Sounds, No Accessory Muscle Use, No Respiratory Distress Cardiovascular: No Edema, No Gallop, No JVD, No Murmur, Normal Peripheral Pulses, Tachycardia Gastrointestinal: Normal Bowel Sounds, No Organomegaly, No Pulsatile Mass, Non Tender, Soft Extremity: Normal Capillary Refill, Normal Inspection, Normal Range of Motion, Non Tender, No Pedal Edema Neurologic/Psychiatric: Alert, Oriented x3, Normal Mood/Affect Skin: Normal Color, Warm/Dry Comments Patient was awake and sitting up in bed, he was very energetic during the interview Results/Procedures Lab Laboratory Tests 08/03/21 15:33 08/03/21 21:40 08/04/21 04:10 08/04/21 09:52 Patient resulted labs reviewed. Assessment/Plan Assessment and Plan Assess & Plan/Chief Complaint Assessment: Hyperglycemic hyperosmolar nonketotic syndrome Atrial flutter with rapid ventricular response Acute renal failure Closed right fibular fracture Osteomyelitis Hyponatremia Hypokalemia Leukocytosis Type II diabetes RONN COPD Gout High cholesterol HTN DVT prophylaxis Noncompliance Plan: Hyperglycemic hyperosmolar nonketotic syndrome - glucose 158 today - normal insulin drip was discontinued - patient is stable enough to move down to [facility] floor Atrial flutter with rapid ventricular response - Eliquis restarted - Diltiazem dose increased to 120mg - cardioversion scheduled for 08/05/21 Acute renal failure - GFR improved to 66 and creatinine improved to 1.31 Closed right fibular fracture - ortho consulting, short leg cast was placed - patient will have an MRI scheduled to assess for osteomyelitis - patient started on IV Ceftriaxone to cover bacteria that may be osteomyelitis, meds will end 08/08/21 Hyponatremia - corrected sodium is now 133 Hypokalemia - improved, now 3.1 - continue IV K and Mg Leukocytosis - WBC has decreased to 15.3 today - this is possibly just reactive from the severely elevated glucose - continue to monitor labs Type II diabetes - insulin detemir was begun today - blood glucose will be monitored - placed on a diabetic diet, okay to eat now that his HHS has resolved RONN - needs to sleep with CPAP COPD - albuterol and ipratropium started DVT prophylaxis - apixaban started Ulcer prophylaxis - pantoprazole started Diagnosis/Problems Diagnosis/Problems (1) RONN (obstructive sleep apnea) (2) COPD (chronic obstructive pulmonary disease) (3) High cholesterol (4) Gout (5) Hyperglycemic hyperosmolar nonketotic coma Status: Acute (6) Acute renal failure Status: Acute Qualifiers: Qualified Codes: N17.9 - Acute kidney failure, unspecified (7) Closed right fibular fracture Status: Acute Qualifiers: Qualified Codes: S82.831A - Other fracture of upper and lower end of right fibula, initial encounter for closed fracture (8) T2DM (type 2 diabetes mellitus) Status: Chronic (9) HTN (hypertension) Status: Chronic (10) DVT prophylaxis Status: Acute (11) Hyponatremia (12) Atrial flutter (13) Noncompliance (14) Leukocytosis (15) Hypokalemia GEOVANNA GILL DO 08/05/21 0556: Subjective Subjective/Events-last exam Pt is doing a lot better Transferring to 4th floor Cardioversion with MAMADOU will be done tomorrow morning MRI will be done after he gets out of the ICU per orthopedics Review of Systems General: Fatigue, Malaise Objective Exam General Appearance: No Apparent Distress, WD/WN, Chronically ill Respiratory: Lungs Clear, Normal Breath Sounds Cardiovascular: Tachycardia Assessment/Plan Assessment and Plan Assess & Plan/Chief Complaint Continue supportive care Transfer to fourth floor Supervisory-Addendum Brief Verification & Attestation Participated in pt care: history, MDM, physical Personally performed: exam, history, MDM, supervision of care Care discussed with: Medical Student Procedures: n/a Results interpretation: Verified all documentation Verification and Attestation of Medical Student E/M Service A medical student performed and documented this service in my presence. I reviewed and verified all information documented by the medical student and made modifications to such information, when appropriate. I personally performed the physical exam and medical decision making. Geovanna Gill, Aug 05, 2021,05:53 OMAIRA CABRERA Aug 04, 2021 11:51 GEOVANNA GILL DO Aug 05, 2021 05:56
--- NOTE | 2021-08-04 14:07 | Occupational Therapy Eval ---
OT Evaluation-General/PLF Medical Diagnosis Admission Date Aug 02, 2021 at 15:34 Medical Diagnosis: acute renal failure, atrial flutter Onset Date: Aug 02, 2021 Therapy Diagnosis Therapy Diagnosis: decreased ADL status Height/Weight Height (Feet): 5 Height (Inches): 11.00 Weight (Pounds): 358 Weight (Ounces): 1.0 Precautions Precautions/Isolations: Fall Prevention, Standard Precautions Weight Bear Status Weight Bearing Restriction: Non Weight Bearing Location Restriction: RT FOOT Referral Physician: Henny Referral Reason: Evaluation/Treatment Medical History Pertinent Medical History: DM, HTN, Smoking Additional Medical History DM, CKD, meth use Current History ED found to have atrial flutter and R ankle fracture Social History Home: Single Level Current Living Status: Alone Entry Into Home: Ramp ADL-Prior Level of Function SCALE: Activities may be completed with or without assistive devices. 5-Boptkhsjle-hyeeenp completes the activity by him/herself with no assistance from a helper. 5-Set-up or Clean-up Assistance-helper sets up or cleans up; patient completes activity. [place] assists only prior to or following the activity. 4-Supervision or Touching Assistance-helper provides verbal cues and/or touching/steadying and/or contact guard assistance as patient completes activity. Assistance may be provided throughout the activity or intermittently. 3-Partial/Moderate Assistance-helper does LESS THAN HALF the effort. [place] lifts, holds or supports trunk or limbs, but provides less than half the effort. 2-Substantial/Maximal Assistance-helper does MORE THAN HALF the effort. [place] lifts or holds trunk or limbs and provides more than half the effort. 4-Hkpnskjhd-npajlf does ALL the effort. Patient does none of the effort to complete the activity. Or, the assistance of 2 or more helpers is required for the patient to complete the activity. If activity was not attempted, code reason: 7-Patient Refused. 9-Not Applicable-not attempted and the patient did not perform the activity before the current illness, exacerbation or injury. 10-Not Attempted due to Environmental Limitations-(lack of equipment, weather restraints, etc.). 88-Not Attempted due to Medical Conditions or Safety Concerns. ADL PLOF Comments Pt reports IND with ADLs and functional mobility at PLOF, has a walker and a cane. Self Care: Independent Functional Cognition: Independent OT Current Status Subjective Pt laying in bed, states he is unable to get out of the bed today. Pt often would forget what he was talking about, asking OT what he was saying Mental Status/Objective Patient Orientation: Person, Confused, Situation Current Upper Extremity ROM WFL, BUE shoulder flexion to ~160 degrees Upper Extremity Strength Grossly 5/5 ADL-Treatment Eating (QC): 6 (Per pt report) Oral Hygiene (QC): 5 (per clinical judgment.) Upper Body Dressing (QC): 1 (Per clincial judgment) Lower Body Dressing (QC): 1 (Per clincial judgment) On/Off Footwear (QC): 1 (total assist R gripper sock.) Other Treatments Pt in bed, agreeable to OT evaluation. Pt provided information about PLOF and home set up to his ability, pt often forgot what he was talking about and would talk around the question, never fully answering all questions. Pt refused to attempt to sit EOB or OOB activities due to pain in LEs. In order to increase BUE activity tolerance, pt educated on BUE exercises, completing x10 reps each of the following: shoulder flexion, elbow flexion/extension, front punch. Pt educated on positioning himself in bed, HOB lowered, then pt able to reach above head to bed rails to pull himself up towards HOB. Post tx, pt in bed, call light in reach and all needs met. Education OT Patient Education: Correct positioning, Modified ADL techniques, Progress toward Goal/Update tx plan, Purpose of tx/functional activities, Rehab process Teaching Recipient: Patient Teaching Methods: Discussion Response to Teaching: Verbalize Understanding OT Care Home Goals Care Home Goals Time Frame: Aug 27, 2021 Eating (QC): 6 Oral Hygiene (QC): 5 Toileting Hygiene (QC): 4 Shower/Bathe Self (QC): 4 Upper Body Dressing (QC): 5 Lower Body Dressing (QC): 4 On/Off Footwear (QC): 4 Additional Goals: 1-Demonstrate ADL Tasks, 2-Verbalize Understanding, 3- ImproveStrength/Jay 1=Demonstrate adherence to instructed precautions during ADL tasks. 2=Patient will verbalize/demonstrate understanding of assistive devices/modifications for ADL. 3=Patient will improve strength/tolerance for activity to enable patient to perform ADL's. OT Education/Plan Problem List/Assessment Assessment: Decreased Activ Tolerance, Decreased Safety Aware, Impaired Cognition, Impaired Funct Balance, Impaired I ADL's, Impaired Self-Care Skills Discharge Recommendations Plan/Recommendations: Continue POC Treatment Plan/Plan of Care Patient would benefit from OT for education, treatment and training to promote independence in ADL's, mobility, safety and/or upper extremity function for ADL' s. Plan of Care: ADL Retraining, Functional Mobility, UE Funct Exercise/Act Treatment Duration: Aug 27, 2021 Frequency: 3 times per week (3-5 times per week) Time/GCodes Start Time: 13:25 Stop Time: 13:41 Total Time Billed (hr/min): 16 Billed Treatment Time 1, DANIELLE LIM OT Aug 04, 2021 14:07
--- NOTE | 2021-08-04 14:12 | Physical Therapy Evaluation ---
PT Evaluation-General Medical Diagnosis Admission Date Aug 02, 2021 at 15:34 Medical Diagnosis: acute renal failure, atrial flutter Onset Date: Aug 02, 2021 Therapy Diagnosis Therapy Diagnosis: weakness, debility Height/Weight Height (Feet): 5 Height (Inches): 11.00 Weight (Pounds): 358 Weight (Ounces): 1.0 Precautions Precautions/Isolations: Fall Prevention, Standard Precautions Weight Bear Status Right Lower Extremity: Right Non Weight Bearing Referral Physician: Henny Reason for Referral: Evaluation/Treatment Medical History Pertinent Medical History: DM, HTN, Smoking Additional Medical History Stroke 2 years ago Current History Patient has fallen multiple times over the past week and most recent fall out the front door of his house. Social History Home: Single Level Current Living Status: Alone Entry Into Home: Ramp PT Steps Into Home: 3 Prior Prior Level of Function SCALE: Activities may be completed with or without assistive devices. 3-Duecxeilsm-niytbvt completes the activity by him/herself with no assistance from a helper. 5-Set-up or Clean-up Assistance-helper sets up or cleans up; patient completes activity. [place] assists only prior to or following the activity. 4-Supervision or Touching Assistance-helper provides verbal cues and/or touching/steadying and/or contact guard assistance as patient completes activity. Assistance may be provided throughout the activity or intermittently. 3-Partial/Moderate Assistance-helper does LESS THAN HALF the effort. [place] lifts, holds or supports trunk or limbs, but provides less than half the effort. 2-Substantial/Maximal Assistance-helper does MORE THAN HALF the effort. [place] lifts or holds trunk or limbs and provides more than half the effort. 2-Xhjypgkhm-tdafwo does ALL the effort. Patient does none of the effort to complete the activity. Or, the assistance of 2 or more helpers is required for the patient to complete the activity. If activity was not attempted, code reason: 7-Patient Refused. 9-Not Applicable-not attempted and the patient did not perform the activity before the current illness, exacerbation or injury. 10-Not Attempted due to Environmental Limitations-(lack of equipment, weather restraints, etc.). 88-Not Attempted due to Medical Conditions or Safety Concerns. Bed Mobility: 6 Transfers (B,C,W/C): 6 Gait: 6 Stairs: 6 Indoor Mobility (Ambulation): Independent Stairs: Independent Prior Devices Use: Walker Prior Device Use: walker, cane Patient reports that he has a cane and walker and will use both at home. PT Evaluation-Current Subjective Patient presented in bed and agreed to participate in therapy. Patient reports that he doesn't think he can get out of bed due to pain in his right leg. Objective Patient Orientation: Person, Situation ROM/Strength ROM Lower Extremities WFL Strength Lower Extremities Unable to assess due to patient pain level. Integumentary/Posture Bladder Incontinence: Reddy Cath Sensory Vision: Functional Hearing: Functional Gait Does the Patient Walk?: No and Walking Goal IS indicated Assessment/Needs Patient was unable to perform OOB activities due to increased pain in his R LE. Patient performed supine exercises and pulled himself up in bed to reposition himself. Patient reports that he wants to try and get out of bed tomorrow. Patient requires skilled therapy due to decreased strength, endurance, to increase functional mobility. Seated balance, ambulation, and transfers were not evaluated due to patient refusing OOB activities. Patient is NWB on R LE due to fracture of R ankle. Rehab Potential: Guarded PT Glass Edger Goals Senior Care Goals PT Glass Edger Goals Time Frame: Aug 14, 2021 Roll Left & Right (QC): 4 Sit to Lying (QC): 4 Lying-Sitting on Side/Bed(QC): 4 Sit to Stand (QC): 4 Chair/Dnl-wm-Sccrw Xfer(QC): 4 Toilet Transfer (QC): 4 Does the Patient Walk: No and Walking Goal IS indicated Walk 10 feet (QC): 4 Walk 50ft with 2 Turns (QC): 4 PT Plan Problem List Problem List: Activity Tolerance, Functional Strength, Safety, Balance, Gait, Transfer, Bed Mobility, ROM Treatment/Plan Treatment Plan: Continue Plan of Care Treatment Plan: Bed Mobility, Education, Functional Activity Jay, Functional Strength, Gait, Safety, Therapeutic Exercise, Transfers Treatment Duration: Aug 14, 2021 Frequency: 6 times per week Estimated Hrs Per Day: .25 hour per day Patient and/or Family Agrees t: Yes Safety Risks/Education Patient Education: Reviewed Precautions, Correct Positioning, Safety Issues Teaching Recipient: Patient Teaching Methods: Demonstration, Discussion Response to Teaching: Reinforcement Needed Discharge Recommendations Plan Patient performed bed mobility and transfer training, balance and endurance training, functional strengthening, stair training, gait training, and education, to improve functional mobility and independence at home. Therapy Discharge Recommendati: Scheduled Assistance, Home & Family, Post Acute PT Time/GCodes Time In: 1326 Time Out: 1340 Total Billed Treatment Time: 14 Total Billed Treatment 1 Visit EVMod 14 min FAUSTINO YBARRA PT Aug 04, 2021 14:12
[2021-08-04] MEDS: inSUlin ASPART (NovoLOG) 1 UNIT/0.01 ML (CHARGE PER UNIT) SC SCH ×2 (16:25→20:41)
[2021-08-05 02:28] VITALS: BP 117/79
[2021-08-05 05:37] LABS: BASOPHILS # (AUTO) 0.1 10^3/uL (0.0-0.1); BASOPHILS % (AUTO) 0 % (0-10); EOSINOPHILS # (AUTO) 0.2 10^3/uL (0.0-0.3); EOSINOPHILS % (AUTO) 1 % (0-10); HEMATOCRIT 37 % (40-54); HEMOGLOBIN 12.2 g/dL (13.3-17.7); LYMPHOCYTES # (AUTO) 1.7 10^3/uL (1.0-4.0); LYMPHOCYTES % (AUTO) 14 % (12-44); MEAN CORPUSCULAR HEMOGLOBIN 29 pg (25-34); MEAN CORPUSCULAR HGB CONC 33 g/dL (32-36); MEAN CORPUSCULAR VOLUME 86 fL (80-99); MEAN PLATELET VOLUME 11.3 fL (9.0-12.2); MONOCYTES # (AUTO) 0.9 10^3/uL (0.0-1.0); MONOCYTES % (AUTO) 7 % (0-12); NEUTROPHILS # (AUTO) 9.5 10^3/uL (1.8-7.8); NEUTROPHILS % (AUTO) 77 % (42-75); PLATELET COUNT 228 10^3/uL (130-400); WHITE BLOOD COUNT 12.4 10^3/uL (4.3-11.0)
[2021-08-05 05:53] LABS: CALCIUM 8.3 MG/DL (8.5-10.1)
[2021-08-05 05:54] LABS: TOTAL PROTEIN 6.6 GM/DL (6.4-8.2)
[2021-08-05 05:56] LABS: BILIRUBIN,TOTAL 0.7 MG/DL (0.1-1.0)
[2021-08-05 05:58] LABS: CREATININE SERUM 1.21 MG/DL (0.60-1.30)
[2021-08-05] MEDS: inSUlin ASPART (NovoLOG) 1 UNIT/0.01 ML (CHARGE PER UNIT) SC SCH ×4 (06:03→21:09)
[2021-08-05] MEDS: POTASSIUM CL 10MEQ/50ML IVPB 50 ML IV SCH ×3 (06:47→13:04)
[2021-08-05] MEDS ORDERED: NS IV 1000 ML 1,000 ML ONE (07:49)
[2021-08-05] MEDS ORDERED: LIDOCAINE 2% VISCOUS 15 ML UDC ONE (07:49)
[2021-08-05] MEDS ORDERED: MIDAZOLAM 2 MG/2 ML (VERSED) VIAL ONE (07:51)
[2021-08-05] MEDS ORDERED: proPOfol 200 MG/20 ML (DIPRIVAN) VIAL IV ONE (07:51)
--- NOTE | 2021-08-05 08:05 | Conscious Sedation/ASA ---
Conscious Sedation Pre-Proced Time 08:04 ASA Score 3 For ASA 3 and 4: Consider anesthesia and medical clearance. Also, for patients with a history of failed moderate sedation consider anesthesia. Airway Lungs Heart ASA score ASA 1: a normal healthy patient ASA 2: a patient with a mild systemic disease (mid diabetes, controlled hypertension, obesity x ASA 3: a patient with a severe systemic disease that limits activity (angina, COPD, prior Myocardial infarction) ASA 4: a patient with an incapacitating disease that is a constant threat to life (CHF, renal failure) ASA 5: a moribund patient not expected to survive 24 hrs. (ruptured aneurysm) ASA 6: a declared brain- patient whose organs are being harvested. For emergent operations, add the letter E after the classification Mallampati Classification Grade 3 Sedation Plan Analgesia, Amnesia, Plan communicated to team members, Discussed options with patient/fam, Discussed risks with patient/fam The patient is an appropriate candidate to undergo the planned procedure, sedation, and anesthesia. The patient immediately re-assessed prior to indication. NIKA SOSA MD Aug 05, 2021 08:05
[2021-08-05] MEDS ORDERED: NS IV 1000 ML 1,000 ML IV ONE (08:07)
--- NOTE | 2021-08-05 08:18 | Cardioversion ---
Cardioversion PROCEDURE PHYSICIAN: Nika Burgess DATE OF PROCEDURE: 08/05/21 DIRECT EXTERNAL ELECTRICAL CARDIOVERSION: Indications: Atrial flutter with rapid ventricular rate Preoperative diagnoses: Atrial flutter with rapid ventricular rate Postoperative diagnosis: Sinus rhythm, Successful Electrical Cardioversion Anesthesia: By Anesthesia services Complications: None Specimen: None Contrast: 0 Flouroscopy: none Procedure Details: The patient was brought the cheesemaking laborer after informed consent was taken, all the risks and complications were explained including the risk of stroke. Electrical cardioversion was carried out with anesthesia support with propofol. 200 joules of synchronized shock was delivered through external patches which promptly restored sinus rhythm. The patient tolerated the procedure well. Conclusions: Successful electrical cardioversion and terminating atrial flutter NIKA BURGESS MD Aug 05, 2021 08:18
--- NOTE | 2021-08-05 08:21 | Cardiology Progress Note ---
Subjective Date Seen by Provider: Aug 05, 2021 Time Seen by Provider: 08:18 Subjective/Events-last exam Patient is laying down in bed, converted to sinus rhythm after MAMADOU cardioversion. Review of Systems General: No Chills, No Night Sweats, No Fatigue, No Malaise, No Appetite, No Other HEENT: No Head Aches, No Visual Changes, No Eye Pain, No Ear Pain, No Dysphasia, No Sinus Congestion, No Post Nasal Drip, No Sore Throat, No Other Pulmonary: No Dyspnea, No Cough, No Pleuritic Chest Pain, No Other Cardiovascular: No: Chest Pain, Palpitations, Orthopnea, Paroxysmal Noc. Dyspnea, Edema, Lt Headedness, Other Objective-Cardiology Exam Last Set of Vital Signs Vital Signs 08/05/21 08/05/21 08/05/21 02:28 04:11 07:00 Temp 36.4 Pulse 112 Resp 20 B/P (MAP) 116/66 Pulse Ox 97 O2 Delivery Room Air FiO2 21 I&O Intake and Output 08/05/21 00:00 Intake Total 3980 ml Output Total 4825 ml Balance -845 ml Intake Oral 2780 ml IV Total 1200 ml Output Urine Total 4825 ml General: Alert, Oriented X3, Cooperative HEENT: Atraumatic, PERRLA Neck: Supple, No JVD, No Thyromegaly Lungs: Clear to Auscultation, Normal Air Movement Heart: Regular Rate, Normal S1, Normal S2, No Murmurs Abdomen: Normal Bowel Sounds, Soft, No Tenderness, No Hepatosplenomegaly, No Masses Extremities: No Clubbing, No Cyanosis, No Edema, Normal Pulses, No Tenderness/Swelling Skin: No Rashes, No Breakdown, No Significant Lesion Neuro: Normal Gait, Normal Speech, Strength at 5/5 X4 Ext, Normal Tone, Sensation Intact Psych/Mental Status: Mental Status NL, Mood NL Results Lab Laboratory Tests 08/04/21 09:52 08/05/21 05:25 A/P-Cardiology Admission Diagnosis Paroxysmal atrial fibrillation/flutter Congestive heart failure, chronic compensated left ventricular systolic dysfunction nonischemic cardiomyopathy Diabetic ketoacidosis Acute renal failure Assessment/Plan Paroxysmal atrial fibrillation, flutter, underwent cardio[place] [address] Storm. Had ablation done in December [address] Storm, underwent MAMADOU with electrical cardioversion on August 05, 2021, I will load him with amiodarone bolus and oral. Continue to monitor Diabetic hyperosmolar nonketotic hyperglycemia. Significant improvement, managed by medical team Acute renal failure, receiving IV fluid, monitor renal function Congestive heart failure, resolved, initially ejection fraction was 20%. Repeat echocardiogram showed improvement in left ventricular function with ejection fraction 50 to 55%. MAMADOU confirmed normal left ventricular function. Mild coronary artery disease per cardiac catheterization done in December 2019. Continue to monitor History of CVA, received thrombolytic required rehabilitation Hypertension, monitor blood pressure Hyperlipidemia, monitor lipids Baseline abnormal EKG with right bundle branch block and left anterior fascicular block Tobaccoism, educated on smoking cessation History of meth abuse. Patient reported that he did not use any illicit drugs recently History of noncompliance with medication NIKA SOSA MD Aug 05, 2021 08:21
[2021-08-05] MEDS ORDERED: AMIODARONE FOR BOLUS 150 MG in NS (IVPB) 100 ML IV ONE (08:30)
[2021-08-05] MEDS ORDERED: LIDOCAINE 2% VISCOUS 15 ML UDC PO ONE (09:00)
[2021-08-05] MEDS: PANTOPRAZOLE 40 MG (PROTONIX) TAB PO SCH (09:55)
[2021-08-05] MEDS: AMIODARONE 200 MG (CORDARONE) TAB PO SCH ×2 (09:55→21:09)
[2021-08-05] MEDS: dilTIAZem120 MG (CARDIZEM CD) CAP PO SCH (09:55)
[2021-08-05] MEDS: SENNOSIDES 8.6 MG (SENOKOT) TAB PO SCH (09:56)
[2021-08-05] MEDS: DOCUSATE SODIUM 100 MG (COLACE) CAP PO SCH ×2 (09:56→21:09)
[2021-08-05] MEDS: APIXABAN 5 MG (ELIQUIS) TABLET PO SCH ×2 (09:56→21:08)
[2021-08-05] MEDS: cefTRIAXone 1 GM PRE-MIX 50 ML IV SCH (10:06)
--- NOTE | 2021-08-05 10:50 | Progress Note - Hospitalist ---
Subjective HPI/CC On Admission Date Seen by Provider: Aug 05, 2021 Time Seen by Provider: 10:30 CC: Acute renal failure with hyperglycemia HPI: 56 yr old WM with a past medical history of diabetes, chronic kidney disease, and meth use in the past. He presented to the ER found to be in atrial flutter. Cardiology was consulted. Pt was found to have an ankle fracture. He was placed on anticoagulation, IV fluids, and insulin drip for severe hyperglycemia, acidosis, and hyponatremia. Currently he is doing much better and having no new problems. Subjective/Events-last exam Patient doing a lot better Discontinue catheter Initiate PT and OT Hep-Lock IV fluid No BM yet so will initiate meds Review of Systems Musculoskeletal: leg pain Objective Exam Vital Signs Vital Signs Date Time Temp Pulse Resp B/P (MAP) Pulse Ox O2 Delivery O2 Flow Rate FiO2 08/06/21 03:57 36.6 89 20 144/84 96 Room Air 08/05/21 08:30 4.00 08/05/21 02:28 21 Capillary Refill : Less Than 3 Seconds General Appearance: No Apparent Distress, WD/WN, Chronically ill Respiratory: Lungs Clear, Normal Breath Sounds Cardiovascular: Regular Rate, Rhythm Neurologic/Psychiatric: Alert, Oriented x3 Results/Procedures Lab Patient resulted labs reviewed. Assessment/Plan Assessment and Plan Assess & Plan/Chief Complaint Assessment: Status post DKA Fibula fracture Hyponatremia Diabetes tns-yl-ryhzihr A. fib with RVR status post cardioversion after MAMADOU showed no thrombus Plan: Continue supportive care Hep-Lock IV fluid DC catheter GAYATRI GILL DO Aug 05, 2021 10:50
--- NOTE | 2021-08-05 10:57 | Physical Therapy Daily Note ---
PT Daily Note-Current Subjective Patient presented laying in bed and agreed to move to the chair. Patient reports significant pain in bilateral legs. Mental Status Patient Orientation: Person, Situation Attachments: Reddy Catheter, IV Transfers SCALE: Activities may be completed with or without assistive devices. 5-Pmgvvnmksc-kosdhut completes the activity by him/herself with no assistance from a helper. 5-Set-up or Clean-up Assistance-helper sets up or cleans up; patient completes activity. [place] assists only prior to or following the activity. 4-Supervision or Touching Assistance-helper provides verbal cues and/or touching/steadying and/or contact guard assistance as patient completes activity. Assistance may be provided throughout the activity or intermittently. 3-Partial/Moderate Assistance-helper does LESS THAN HALF the effort. [place] lifts, holds or supports trunk or limbs, but provides less than half the effort. 2-Substantial/Maximal Assistance-helper does MORE THAN HALF the effort. [place] lifts or holds trunk or limbs and provides more than half the effort. 5-Pynxzpxzi-ffcnky does ALL the effort. Patient does none of the effort to complete the activity. Or, the assistance of 2 or more helpers is required for the patient to complete the activity. If activity was not attempted, code reason: 7-Patient Refused. 9-Not Applicable-not attempted and the patient did not perform the activity before the current illness, exacerbation or injury. 10-Not Attempted due to Environmental Limitations-(lack of equipment, weather restraints, etc.). 88-Not Attempted due to Medical Conditions or Safety Concerns. Lying to Sitting/Side of Bed(Q: 4 Chair/Fiu-nq-Shine Xfer(QC): 1 Patient transferred to EOB with SBA but required max assist x3 to transfer from bed to the chair. Weight Bearing Right Lower Extremity: Right Non Weight Bearing Gait Training Does the Patient Walk?: No and Walking Goal IS indicated Exercises Seated Therapy Exercises: Long arc quads Seated Reps: 10 Assessment Patient transferred to the chair with therapy and performed seated exercises. Patient attempted to do a stand pivot transfer with FWW due to NWB on R LE but was unable to perform transfer. Patient slid from bed to the chair with max assist x3 to complete the transfer. PT Certified [employer] Executive Goals Senior Care Goals PT Senior Care Goals Time Frame: Aug 14, 2021 Roll Left & Right (QC): 4 Sit to Lying (QC): 4 Lying-Sitting on Side/Bed(QC): 4 Sit to Stand (QC): 4 Chair/Nil-wy-Psbcd Xfer(QC): 4 Toilet Transfer (QC): 4 Does the Patient Walk: No and Walking Goal IS indicated Walk 10 feet (QC): 4 Walk 50ft with 2 Turns (QC): 4 PT Plan Problem List Problem List: Activity Tolerance, Functional Strength, Safety, Balance, Gait, Transfer, Bed Mobility, ROM Treatment/Plan Treatment Plan: Continue Plan of Care Treatment Plan: Bed Mobility, Education, Functional Activity Jay, Functional Strength, Gait, Safety, Therapeutic Exercise, Transfers Treatment Duration: Aug 14, 2021 Frequency: 6 times per week Estimated Hrs Per Day: .25 hour per day Patient and/or Family Agrees t: Yes Time/GCodes Time In: 1041 Time Out: 1050 Total Billed Treatment Time: 9 Total Billed Treatment 1 Visit FA 9 min TALON CANLEA PT Aug 05, 2021 10:57
[2021-08-05] MEDS: SENNA W/DOCUSATE (SENOKOT S) TABLET PO SCH ×2 (11:15→21:09)
--- NOTE | 2021-08-05 11:48 | Occupational Ther Daily Note ---
OT Current Status-Daily Note Subjective Pt alert, lying in bed. Pt agrees to therapy. Pt c/o knee pain with standing. Reported to nrsg and nrsg will also order pt's meal. Mental Status/Objective Patient Orientation: Person, Place, Time, Situation Attachments: Reddy Catheter, IV ADL-Treatment Therapy Code Descriptions/Definitions Functional [place] Measure: 0=Not Assessed/NA 4=Minimal Assistance 1=Total Assistance 5=Supervision or Setup 2=Maximal Assistance 6=Modified [place] 3=Moderate Assistance 7=Complete IndependenceSCALE: Activities may be completed with or without assistive devices. 8-Zxbahzwebs-ggtohkg completes the activity by him/herself with no assistance from a helper. 5-Set-up or Clean-up Assistance-helper sets up or cleans up; patient completes activity. [place] assists only prior to or following the activity. 4-Supervision or Touching Assistance-helper provides verbal cues and/or touching/steadying and/or contact guard assistance as patient completes activity. Assistance may be provided throughout the activity or intermittently. 3-Partial/Moderate Assistance-helper does LESS THAN HALF the effort. [place] lifts, holds or supports trunk or limbs, but provides less than half the effort. 2-Substantial/Maximal Assistance-helper does MORE THAN HALF the effort. [place] lifts or holds trunk or limbs and provides more than half the effort. 4-Cukwljsnz-ozwlfg does ALL the effort. Patient does none of the effort to complete the activity. Or, the assistance of 2 or more helpers is required for the patient to complete the activity. If activity was not attempted, code reason: 7-Patient Refused. 9-Not Applicable-not attempted and the patient did not perform the activity before the current illness, exacerbation or injury. 10-Not Attempted due to Environmental Limitations-(lack of equipment, weather restraints, etc.). 88-Not Attempted due to Medical Conditions or Safety Concerns. Other Treatment Patient transferred to EOB with SBA but required max assist x3 to transfer from bed to the chair. After therapy, pt sitting in recliner with call light/phone in reach. All needs met in room. OT Jail Goals Jail Goals Time Frame: Aug 27, 2021 Eating (QC): 6 Oral Hygiene (QC): 5 Toileting Hygiene (QC): 4 Shower/Bathe Self (QC): 4 Upper Body Dressing (QC): 5 Lower Body Dressing (QC): 4 On/Off Footwear (QC): 4 Additional Goals: 1-Demonstrate ADL Tasks, 2-Verbalize Understanding, 3- ImproveStrength/Jay 1=Demonstrate adherence to instructed precautions during ADL tasks. 2=Patient will verbalize/demonstrate understanding of assistive devices/modifications for ADL. 3=Patient will improve strength/tolerance for activity to enable patient to perform ADL's. OT Education/Plan Problem List/Assessment Assessment: Decreased Activ Tolerance, Decreased UE Strength, Dependent Transfers, Impaired Funct Balance, Impaired Self-Care Skills Discharge Recommendations Plan/Recommendations: Continue POC Treatment Plan/Plan of Care Patient would benefit from OT for education, treatment and training to promote independence in ADL's, mobility, safety and/or upper extremity function for ADL's. Plan of Care: ADL Retraining, Functional Mobility, UE Funct Exercise/Act Treatment Duration: Aug 27, 2021 Frequency: 3 times per week (3-5 times per week) Rehab Potential: Guarded Time/GCodes Start Time: 10:35 Stop Time: 10:52 Total Time Billed (hr/min): 17 Billed Treatment Time 1 visit-FA 1 (17 min) BENNY LAWTON Aug 05, 2021 11:47
[2021-08-05] MEDS: LACTULOSE SYRUP 10GM/15ML (ENULOSE) 30ML UDC PO SCH ×2 (12:24→21:09)
--- NOTE | 2021-08-05 14:38 | Anesthesia-General Post-Op ---
MAC Patient Condition Mental Status/LOC: Same as Preop Cardiovascular: Satisfactory Nausea/Vomiting: Absent Respiratory: Satisfactory Pain: Controlled Complications: Absent Post Op Complications Complications None Follow Up Care/Instructions Patient Instructions None needed. Anesthesiology Discharge Order Discharge Order Patient was seen this morning after the procedure and he was doing well, no complaints, stable vital signs, no apparent adverse anesthesia problems. ERIKA PETERSEN DO Aug 05, 2021 14:38
[2021-08-06] MEDS: MELATONIN 3 MG TABLET PO PRN ×2 (00:33→20:38)
[2021-08-06 06:15] LABS: BASOPHILS # (AUTO) 0.1 10^3/uL (0.0-0.1); BASOPHILS % (AUTO) 1 % (0-10); EOSINOPHILS # (AUTO) 0.2 10^3/uL (0.0-0.3); EOSINOPHILS % (AUTO) 2 % (0-10); HEMATOCRIT 33 % (40-54); LYMPHOCYTES # (AUTO) 1.7 10^3/uL (1.0-4.0); LYMPHOCYTES % (AUTO) 16 % (12-44); MEAN CORPUSCULAR HEMOGLOBIN 29 pg (25-34); MEAN CORPUSCULAR HGB CONC 34 g/dL (32-36); MEAN CORPUSCULAR VOLUME 87 fL (80-99); MEAN PLATELET VOLUME 10.6 fL (9.0-12.2); MONOCYTES # (AUTO) 0.8 10^3/uL (0.0-1.0); MONOCYTES % (AUTO) 8 % (0-12); NEUTROPHILS % (AUTO) 74 % (42-75); PLATELET COUNT 227 10^3/uL (130-400); WHITE BLOOD COUNT 10.9 10^3/uL (4.3-11.0)
--- NOTE | 2021-08-06 06:18 | Progress Note - Hospitalist ---
Subjective HPI/CC On Admission Date Seen by Provider: Aug 06, 2021 Time Seen by Provider: 10:30 CC: Acute renal failure with hyperglycemia HPI: 56 yr old WM with a past medical history of diabetes, chronic kidney disea se, and meth use in the past. He presented to the ER found to be in atrial flutter. Cardiology was consulted. Pt was found to have an ankle fracture. He was placed on anticoagulation, IV fluids, and insulin drip for severe hyperglycemia, acidosis, and hyponatremia. Currently he is doing much better and having no new problems. Subjective/Events-last exam Patient doing well Dr. Sanchez obtain MRI and it appears to be some sort of bone mass and not a fracture Cast will be in place Will need outpatient follow-up with orthopedic oncology Diabetes much improved He wants to go to jail at discharge Review of Systems General: Fatigue, Malaise Musculoskeletal: leg pain Objective Exam Vital Signs Vital Signs Date Time Temp Pulse Resp B/P (MAP) Pulse Ox O2 Delivery O2 Flow Rate FiO2 08/07/21 03:25 36.8 90 20 123/72 96 Room Air 08/05/21 08:30 4.00 08/05/21 02:28 21 Capillary Refill : Less Than 3 Seconds General Appearance: No Apparent Distress, WD/WN, Chronically ill, Obese Respiratory: Lungs Clear, Normal Breath Sounds Cardiovascular: Regular Rate, Rhythm Neurologic/Psychiatric: Alert, Oriented x3, No Motor/Sensory Deficits, Normal Mood/Affect Results/Procedures Lab Laboratory Tests 08/06/21 06:11 Patient resulted labs reviewed. Assessment/Plan Assessment and Plan Assess & Plan/Chief Complaint Assessment: Status post DKA Fibula fracture Hyponatremia Diabetes oah-lk-exgmzsi A. fib with RVR status post cardioversion after MAMADOU showed no thrombus Plan: Continue supportive care Hep-Lock IV fluid DC catheter 08/06/2021: Continue supportive care MRI reviewed Awaiting jail placement GAYATRI GILL DO Aug 06, 2021 06:18
[2021-08-06 06:24] LABS: POTASSIUM 3.1 MMOL/L (3.6-5.0)
[2021-08-06 06:25] LABS: CALCIUM 8.1 MG/DL (8.5-10.1)
[2021-08-06 06:26] LABS: TOTAL PROTEIN 6.3 GM/DL (6.4-8.2)
[2021-08-06 06:28] LABS: BILIRUBIN,TOTAL 0.7 MG/DL (0.1-1.0)
[2021-08-06 06:30] LABS: CREATININE SERUM 1.1 MG/DL (0.60-1.30)
[2021-08-06] MEDS: inSUlin ASPART (NovoLOG) 1 UNIT/0.01 ML (CHARGE PER UNIT) SC SCH ×4 (06:39→20:59)
[2021-08-06] MEDS ORDERED: KCL 20 MEQ TAB (K-DUR) PO ONE (07:30)
[2021-08-06] MEDS ORDERED: NS IV 500 ML 500 ML ONE (08:15)
[2021-08-06] MEDS: AMIODARONE 200 MG (CORDARONE) TAB PO SCH ×2 (08:22→20:31)
[2021-08-06] MEDS: POTASSIUM CL 10MEQ/50ML IVPB 50 ML IV SCH ×2 (08:22→10:32)
[2021-08-06] MEDS: SENNA W/DOCUSATE (SENOKOT S) TABLET PO SCH ×2 (08:23→20:32)
[2021-08-06] MEDS: DOCUSATE SODIUM 100 MG (COLACE) CAP PO SCH ×2 (08:23→20:32)
[2021-08-06] MEDS: dilTIAZem120 MG (CARDIZEM CD) CAP PO SCH (08:23)
[2021-08-06] MEDS: LACTULOSE SYRUP 10GM/15ML (ENULOSE) 30ML UDC PO SCH ×2 (08:23→20:32)
[2021-08-06] MEDS: APIXABAN 5 MG (ELIQUIS) TABLET PO SCH ×2 (08:23→20:31)
[2021-08-06] MEDS: PANTOPRAZOLE 40 MG (PROTONIX) TAB PO SCH (08:23)
[2021-08-06] MEDS: cefTRIAXone 1 GM PRE-MIX 50 ML IV SCH (09:24)
--- NOTE | 2021-08-06 10:59 | Physical Therapy Daily Note ---
PT Daily Note-Current Subjective Patient presented laying in bed and agreed to transfer to the chair. Mental Status Patient Orientation: Person, Place, Situation Attachments: IV Transfers SCALE: Activities may be completed with or without assistive devices. 6-Caaobvophe-wwaxpxd completes the activity by him/herself with no assistance from a helper. 5-Set-up or Clean-up Assistance-helper sets up or cleans up; patient completes activity. [place] assists only prior to or following the activity. 4-Supervision or Touching Assistance-helper provides verbal cues and/or touching/steadying and/or contact guard assistance as patient completes activity. Assistance may be provided throughout the activity or intermittently. 3-Partial/Moderate Assistance-helper does LESS THAN HALF the effort. [place] lifts, holds or supports trunk or limbs, but provides less than half the effort. 2-Substantial/Maximal Assistance-helper does MORE THAN HALF the effort. [place] lifts or holds trunk or limbs and provides more than half the effort. 1-Hlrbcxjzv-cjputa does ALL the effort. Patient does none of the effort to complete the activity. Or, the assistance of 2 or more helpers is required for the patient to complete the activity. If activity was not attempted, code reason: 7-Patient Refused. 9-Not Applicable-not attempted and the patient did not perform the activity before the current illness, exacerbation or injury. 10-Not Attempted due to Environmental Limitations-(lack of equipment, weather restraints, etc.). 88-Not Attempted due to Medical Conditions or Safety Concerns. Lying to Sitting/Side of Bed(Q: 4 Sit to Stand (QC): 1 Chair/Lbz-ag-Vxees Xfer(QC): 1 Patient was CGA for supine to sitting EOB but required max assist x2 for transfer from bed to the chair. Patient was able to perform more of the transfer today than yesterday. Weight Bearing Right Lower Extremity: Right Non Weight Bearing Assessment Patient transferred from the bed to chair. Patient was able to perform more of the transfer himself today but still required 2 people to assist with the transfer. Patient is very impulsive with transfer and unaware of safety concerns. Patient required frequent cues to remain NWB on R LE. PT Short Term Goals Short Term Goals Time Frame: Aug 06, 2021 PT Group Home Goals Group Home Goals PT Group Home Goals Time Frame: Aug 14, 2021 Roll Left & Right (QC): 4 Sit to Lying (QC): 4 Lying-Sitting on Side/Bed(QC): 4 Sit to Stand (QC): 4 Chair/Vem-lx-Qavup Xfer(QC): 4 Toilet Transfer (QC): 4 Does the Patient Walk: No and Walking Goal IS indicated Walk 10 feet (QC): 4 Walk 50ft with 2 Turns (QC): 4 PT Plan Problem List Problem List: Activity Tolerance, Functional Strength, Safety, Balance, Gait, Transfer, Bed Mobility, ROM Treatment/Plan Treatment Plan: Continue Plan of Care Treatment Plan: Bed Mobility, Education, Functional Activity Jay, Functional Strength, Gait, Safety, Therapeutic Exercise, Transfers Treatment Duration: Aug 14, 2021 Frequency: 6 times per week Estimated Hrs Per Day: .25 hour per day Patient and/or Family Agrees t: Yes Time/GCodes Time In: 935 Time Out: 944 Total Billed Treatment Time: 9 Total Billed Treatment 1 Visit FA 9 min TALON CANELA PT Aug 06, 2021 10:58
--- NOTE | 2021-08-06 11:14 | Occupational Ther Daily Note ---
OT Current Status-Daily Note Subjective Pt in bed, agreeable to OT tx. ADL-Treatment Therapy Code Descriptions/Definitions Functional [place] Measure: 0=Not Assessed/NA 4=Minimal Assistance 1=Total Assistance 5=Supervision or Setup 2=Maximal Assistance 6=Modified [place] 3=Moderate Assistance 7=Complete IndependenceSCALE: Activities may be completed with or without assistive devices. 4-Mtoryqvnzm-eqxpbiu completes the activity by him/herself with no assistance from a helper. 5-Set-up or Clean-up Assistance-helper sets up or cleans up; patient completes activity. [place] assists only prior to or following the activity. 4-Supervision or Touching Assistance-helper provides verbal cues and/or touching/steadying and/or contact guard assistance as patient completes activity. Assistance may be provided throughout the activity or intermittently. 3-Partial/Moderate Assistance-helper does LESS THAN HALF the effort. [place] lifts, holds or supports trunk or limbs, but provides less than half the effort. 2-Substantial/Maximal Assistance-helper does MORE THAN HALF the effort. [place] lifts or holds trunk or limbs and provides more than half the effort. 8-Egyuuylnx-kgvcqh does ALL the effort. Patient does none of the effort to complete the activity. Or, the assistance of 2 or more helpers is required for the patient to complete the activity. If activity was not attempted, code reason: 7-Patient Refused. 9-Not Applicable-not attempted and the patient did not perform the activity befo re the current illness, exacerbation or injury. 10-Not Attempted due to Environmental Limitations-(lack of equipment, weather re straints, etc.). 88-Not Attempted due to Medical Conditions or Safety Concerns. Eating (QC): 6 Oral Hygiene (QC): 5 Lower Body Dressing (QC): 1 (Per clinical judgment, assist x2 would be required for pant hike) Other Treatment Pt transferred supine to sit EOB, CGA. Max A x2 for bed to chair transfer. Pt was impulsive throughout session, requiring cues for safety, and cues to maintain NWB RLE. Once in recliner, pt required max A to comb his hair due to tangles, OT unable to fully untangle pt's hair during session. Ot brought oral care supplies to pt, but his breakfast arrived, preferring to wait until after he eats to complete oral care. Post tx, pt in recliner, call light in reach and all needs met. Education OT Patient Education: Correct positioning, Modified ADL techniques, Progress toward Goal/Update tx plan, Purpose of tx/functional activities, Rehab process Teaching Recipient: Patient Teaching Methods: Discussion Response to Teaching: Verbalize Understanding OT [employer] Director Goals [employer] [facility] Director Goals Time Frame: Aug 27, 2021 Eating (QC): 6 Oral Hygiene (QC): 5 Toileting Hygiene (QC): 4 Shower/Bathe Self (QC): 4 Upper Body Dressing (QC): 5 Lower Body Dressing (QC): 4 On/Off Footwear (QC): 4 Additional Goals: 1-Demonstrate ADL Tasks, 2-Verbalize Understanding, 3- ImproveStrength/Jay 1=Demonstrate adherence to instructed precautions during ADL tasks. 2=Patient will verbalize/demonstrate understanding of assistive devices/modifications for ADL. 3=Patient will improve strength/tolerance for activity to enable patient to perform ADL's. OT Education/Plan Problem List/Assessment Assessment: Decreased Activ Tolerance, Decreased UE Strength, Dependent Transfers, Impaired Funct Balance, Impaired I ADL's, Impaired Self-Care Skills Discharge Recommendations Plan/Recommendations: Continue POC Treatment Plan/Plan of Care Patient would benefit from OT for education, treatment and training to promote independence in ADL's, mobility, safety and/or upper extremity function for ADL's. Plan of Care: ADL Retraining, Functional Mobility, UE Funct Exercise/Act Treatment Duration: Aug 27, 2021 Frequency: 3 times per week (3-5 times per week) Rehab Potential: Guarded Time/GCodes Start Time: 09:35 Stop Time: 09:51 Total Time Billed (hr/min): 16 Billed Treatment Time 1, DANIELLE MCCULLOUGH OT Aug 06, 2021 11:14
--- NOTE | 2021-08-06 11:41 | Cardiology Progress Note ---
Subjective Date Seen by Provider: Aug 06, 2021 Time Seen by Provider: 11:41 Subjective/Events-last exam Patient is laying down in bed, feeling better. No new complaint. Still having pain in his leg Review of Systems General: No Chills, No Night Sweats, No Fatigue, No Malaise, No Appetite, No Other HEENT: No Head Aches, No Visual Changes, No Eye Pain, No Ear Pain, No Dysphasia, No Sinus Congestion, No Post Nasal Drip, No Sore Throat, No Other Pulmonary: No Dyspnea, No Cough, No Pleuritic Chest Pain, No Other Cardiovascular: No: Chest Pain, Palpitations, Orthopnea, Paroxysmal Noc. Dyspnea, Edema, Lt Headedness, Other Objective-Cardiology Exam Last Set of Vital Signs Vital Signs 08/05/21 08/05/21 08/06/21 08/06/21 02:28 08:30 08:17 09:00 Temp 37.0 Pulse 93 Resp 20 B/P (MAP) 122/70 Pulse Ox 97 O2 Delivery Room Air O2 Flow Rate 4.00 FiO2 21 I&O Intake and Output 08/06/21 00:00 Intake Total 1720 ml Output Total 2675 ml Balance -955 ml Intake Oral 1720 ml Output Urine Total 2675 ml General: Alert, Oriented X3, Cooperative HEENT: Atraumatic, PERRLA Neck: Supple, No JVD, No Thyromegaly Lungs: Clear to Auscultation, Normal Air Movement Heart: Regular Rate, Normal S1, Normal S2, No Murmurs Abdomen: Normal Bowel Sounds, Soft, No Tenderness, No Hepatosplenomegaly, No Masses Extremities: No Clubbing, No Cyanosis, No Edema, Normal Pulses, No Tenderness/Swelling Skin: No Rashes, No Breakdown, No Significant Lesion Neuro: Normal Gait, Normal Speech, Strength at 5/5 X4 Ext, Normal Tone, Sensation Intact Psych/Mental Status: Mental Status NL, Mood NL Results Lab Laboratory Tests 08/06/21 06:11 A/P-Cardiology Admission Diagnosis Paroxysmal atrial fibrillation/flutter Congestive heart failure, chronic compensated left ventricular systolic dysfu nction nonischemic cardiomyopathy Diabetic ketoacidosis Acute renal failure Assessment/Plan Paroxysmal atrial fibrillation, flutter, underwent cardio[place] [address] Storm. Had ablation done in December [address] Khalid, underwent MAMADOU with electrical cardioversion on August 05, 2021, continue on oral amiodarone and monitor. Hypokalemia, being replaced, monitor electrolytes. Diabetic hyperosmolar nonketotic hyperglycemia. Significant improvement, managed by medical team Acute renal failure, receiving IV fluid, monitor renal function Congestive heart failure, resolved, initially ejection fraction was 20%. Repeat echocardiogram showed improvement in left ventricular function with ejection fraction 50 to 55%. MAMADOU confirmed normal left ventricular function. Mild coronary artery disease per cardiac catheterization done in December 2019. Continue to monitor History of CVA, received thrombolytic required rehabilitation Hypertension, monitor blood pressure Hyperlipidemia, monitor lipids Baseline abnormal EKG with right bundle branch block and left anterior fascicular block Tobaccoism, educated on smoking cessation History of meth abuse. Patient reported that he did not use any illicit drugs recently History of noncompliance with medication NIKA SOSA MD Aug 06, 2021 11:41
--- NOTE | 2021-08-06 13:31 | Diagnostic Imaging Report ---
EXAMINATION: Right lower extremity MRI without contrast, 08/06/2021. TECHNIQUE: Multiplanar, multisequence qez-uqvokwej-udpngjwh MRI of the right lower extremity was accomplished. INDICATION: Recent of fracture of the fibula. Abnormality seen within the distal third of the tibia on recent radiographs. COMPARISON: Correlation made to radiographs of the tibia and fibula from 08/02/2021. FINDINGS: There is a focal area of diffuse cortical thickening about the distal one-third of the tibial diaphysis. The medial border demonstrates altered signal intensity within the medial cortex of the tibia, best appreciated on T1-weighted imaging. This has a somewhat permeative-type appearance and is nonspecific. Minimal overlying soft tissue edema is noted, but no obvious soft tissue mass is appreciated. There does not appear to be associated edema within the tibia itself. The abnormality measures approximately 6.1 cm in cranial to caudal dimension. Within the remaining osseous structures, there is a fracture of the distal fibula with surrounding edema. There is a nonspecific area of superficial T2 hyperintensity overlying the medial aspect of the distal tibia and fibula just above the ankle mortise. This is nonspecific and could represent artifact; however, clinical correlation for a skin wound or boil recommended. Visualized tendons are intact. There is mild muscular edema surrounding the lower extremity into the ankle, likely reactive given the acute fracture. IMPRESSION: 1. Nonspecific abnormality involving the medial cortex of the distal tibial diaphysis with associated adjacent diffuse cortical thickening. Differential diagnosis includes an inflammatory/infectious etiology with a permeative mass or focal lytic lesion not excluded. Postcontrast imaging to evaluate for edema within the region as well as CT for better characterization of the osseous structures themselves recommended. 2. Distal fibular fracture with surrounding soft tissue and muscular edema. Dictated by: Dictated on workstation # [id number]
[2021-08-07 05:48] LABS: BASOPHILS # (AUTO) 0.1 10^3/uL (0.0-0.1); BASOPHILS % (AUTO) 1 % (0-10); EOSINOPHILS # (AUTO) 0.2 10^3/uL (0.0-0.3); EOSINOPHILS % (AUTO) 2 % (0-10); HEMATOCRIT 33 % (40-54); HEMOGLOBIN 10.6 g/dL (13.3-17.7); LYMPHOCYTES # (AUTO) 1.5 10^3/uL (1.0-4.0); LYMPHOCYTES % (AUTO) 14 % (12-44); MEAN CORPUSCULAR HEMOGLOBIN 28 pg (25-34); MEAN CORPUSCULAR HGB CONC 33 g/dL (32-36); MEAN CORPUSCULAR VOLUME 87 fL (80-99); MEAN PLATELET VOLUME 10.3 fL (9.0-12.2); MONOCYTES # (AUTO) 0.9 10^3/uL (0.0-1.0); MONOCYTES % (AUTO) 9 % (0-12); NEUTROPHILS # (AUTO) 7.7 10^3/uL (1.8-7.8); NEUTROPHILS % (AUTO) 74 % (42-75); PLATELET COUNT 254 10^3/uL (130-400); WHITE BLOOD COUNT 10.4 10^3/uL (4.3-11.0)
[2021-08-07 06:04] LABS: POTASSIUM 3.3 MMOL/L (3.6-5.0)
[2021-08-07 06:05] LABS: CALCIUM 8.3 MG/DL (8.5-10.1)
[2021-08-07 06:07] LABS: TOTAL PROTEIN 6.2 GM/DL (6.4-8.2)
[2021-08-07 06:09] LABS: BILIRUBIN,TOTAL 0.7 MG/DL (0.1-1.0)
[2021-08-07 06:13] LABS: MAGNESIUM 2.2 MG/DL (1.6-2.4)
[2021-08-07] MEDS: inSUlin ASPART (NovoLOG) 1 UNIT/0.01 ML (CHARGE PER UNIT) SC SCH ×4 (06:51→20:06)
--- NOTE | 2021-08-07 07:36 | Progress Note - Hospitalist ---
Subjective HPI/CC On Admission Date Seen by Provider: Aug 07, 2021 Time Seen by Provider: 10:30 CC: Acute renal failure with hyperglycemia HPI: 56 yr old WM with a past medical history of diabetes, chronic kidney disea se, and meth use in the past. He presented to the ER found to be in atrial flutter. Cardiology was consulted. Pt was found to have an ankle fracture. He was placed on anticoagulation, IV fluids, and insulin drip for severe hyperglycemia, acidosis, and hyponatremia. Currently he is doing much better and having no new problems. Subjective/Events-last exam Patient doing very well Patient is okay with seeing an orthopedic oncologist since the area appears to be neoplastic in nature Blood sugars are much better Increasing insulin a little bit more Awaiting mcc placement Review of Systems General: Fatigue, Malaise Objective Exam Vital Signs Vital Signs Date Time Temp Pulse Resp B/P (MAP) Pulse Ox O2 Delivery O2 Flow Rate FiO2 08/08/21 03:16 36.2 90 20 118/57 99 Room Air 08/07/21 08:01 0.00 08/05/21 02:28 21 Capillary Refill : Less Than 3 Seconds General Appearance: No Apparent Distress, WD/WN, Chronically ill, Obese Respiratory: Lungs Clear, Normal Breath Sounds Cardiovascular: Regular Rate, Rhythm Neurologic/Psychiatric: Alert, Oriented x3, No Motor/Sensory Deficits, Normal Mood/Affect Results/Procedures Lab Laboratory Tests 08/08/21 05:30 Patient resulted labs reviewed. Assessment/Plan Assessment and Plan Assess & Plan/Chief Complaint Assessment: Status post DKA Fibula fracture versus mass needs orthopedic oncology as outpatient Hyponatremia Diabetes tvn-ab-qdrgamv A. fib with RVR status post cardioversion after MAMADOU showed no thrombus Plan: Continue supportive care Hep-Lock IV fluid DC catheter 08/06/2021: Continue supportive care MRI reviewed Awaiting mcc placement 08/07/2021: Await mcc placement GAYATRI GILL DO Aug 07, 2021 07:36
[2021-08-07] MEDS: dilTIAZem120 MG (CARDIZEM CD) CAP PO SCH (08:21)
[2021-08-07] MEDS: cefTRIAXone 1 GM PRE-MIX 50 ML IV SCH (08:21)
[2021-08-07] MEDS: PANTOPRAZOLE 40 MG (PROTONIX) TAB PO SCH (08:21)
[2021-08-07] MEDS: APIXABAN 5 MG (ELIQUIS) TABLET PO SCH ×2 (08:21→20:04)
[2021-08-07] MEDS: AMIODARONE 200 MG (CORDARONE) TAB PO SCH ×2 (08:21→20:04)
[2021-08-07] MEDS: SENNA W/DOCUSATE (SENOKOT S) TABLET PO SCH ×2 (08:51→20:05)
[2021-08-07] MEDS: LACTULOSE SYRUP 10GM/15ML (ENULOSE) 30ML UDC PO SCH ×2 (08:51→20:04)
[2021-08-07] MEDS: DOCUSATE SODIUM 100 MG (COLACE) CAP PO SCH ×2 (08:51→20:11)
--- NOTE | 2021-08-07 09:25 | Physical Therapy Daily Note ---
PT Daily Note-Current Subjective Patient is very agreeable to participate with therapy. Mental Status Patient Orientation: Normal For Age Transfers SCALE: Activities may be completed with or without assistive devices. 8-Pntewqbvrz-dakgrtn completes the activity by him/herself with no assistance from a helper. 5-Set-up or Clean-up Assistance-helper sets up or cleans up; patient completes activity. [place] assists only prior to or following the activity. 4-Supervision or Touching Assistance-helper provides verbal cues and/or touch ing/steadying and/or contact guard assistance as patient completes activity. Assistance may be provided throughout the activity or intermittently. 3-Partial/Moderate Assistance-helper does LESS THAN HALF the effort. [place] lifts, holds or supports trunk or limbs, but provides less than half the effort. 2-Substantial/Maximal Assistance-helper does MORE THAN HALF the effort. [place] lifts or holds trunk or limbs and provides more than half the effort. 0-Qcuyhwgqb-zulkmx does ALL the effort. Patient does none of the effort to complete the activity. Or, the assistance of 2 or more helpers is required for the patient to complete the activity. If activity was not attempted, code reason: 7-Patient Refused. 9-Not Applicable-not attempted and the patient did not perform the activity before the current illness, exacerbation or injury. 10-Not Attempted due to Environmental Limitations-(lack of equipment, weather restraints, etc.). 88-Not Attempted due to Medical Conditions or Safety Concerns. Sit to Stand (QC): 4 (SBA from lift chair) Weight Bearing Right Lower Extremity: Right Non Weight Bearing Exercises Seated Therapy Exercises: Long arc quads, Hip flexion Seated Reps: 15 Standing: Marching (right LE only) Assessment Patient improving with sit to stand transfer to FWW. Patient stood to FWW x 5 min SBA. Patient remains up in recliner with needs met. PT Short Term Goals Short Term Goals Time Frame: Aug 06, 2021 PT Retail Training Manager Goals Retail Training Manager Goals PT Retail Training Manager Goals Time Frame: Aug 14, 2021 Roll Left & Right (QC): 4 Sit to Lying (QC): 4 Lying-Sitting on Side/Bed(QC): 4 Sit to Stand (QC): 4 Chair/Yml-jq-Sxhqq Xfer(QC): 4 Toilet Transfer (QC): 4 Does the Patient Walk: No and Walking Goal IS indicated Walk 10 feet (QC): 4 Walk 50ft with 2 Turns (QC): 4 PT Plan Treatment/Plan Treatment Plan: Continue Plan of Care Treatment Plan: Bed Mobility, Education, Functional Activity Jay, Functional Strength, Gait, Safety, Therapeutic Exercise, Transfers Treatment Duration: Aug 14, 2021 Frequency: 6 times per week Estimated Hrs Per Day: .25 hour per day Patient and/or Family Agrees t: Yes Time/GCodes Time In: 748 Time Out: 758 Total Billed Treatment Time: 10 Total Billed Treatment 1 visit EX 10 min TALON CANELA PT Aug 07, 2021 09:25
--- NOTE | 2021-08-07 11:53 | Progress Note - Ortho ---
Progress Note Subjective Date of Exam 08/07/21 Chief Complaint Fracture right distal fibula HPI/Events since last exam Mr. Lacy is doing fairly well. He still having some pain in the ankle. He is up ambulating nonweightbearing on the right.No problems with the cast. Review of Systems Reviewed and no additions or change Allergies: Coded Allergies: No Known Drug Allergies (Unverified , 02/26/14) Home Meds Reported Medications Atorvastatin Calcium (Atorvastatin Calcium) 80 Mg Tablet, 80 MG PO HS, TAB 08/03/21 Potassium Chloride (Potassium Chloride) 20 Meq Tab.er.prt, 20 MEQ PO DAILY 08/03/21 Gabapentin (Gabapentin) 600 Mg Tablet, 600 MG PO TID, TAB 08/03/21 Apixaban (Eliquis) 5 Mg Tablet, 5 MG PO BID, TAB 08/03/21 Clopidogrel Bisulfate (Clopidogrel) 75 Mg Tablet, 75 MG PO DAILY, TAB 08/03/21 Duloxetine HCl (Duloxetine HCl) 30 Mg Capsule.dr, 30 MG PO BID, CAP 08/03/21 Dulaglutide (Trulicity) 1.5 Mg/0.5 Ml Pen.injctr, 1.5 MG IJ WEEK, EA 08/03/21 Metolazone (Metolazone) 5 Mg Tablet, 5 MG PO DAILY, TAB 03/12/20 Furosemide (Furosemide) 40 Mg Tablet, 80 MG PO DAILY, TAB TAKES 2 (40MG) TABS 03/12/20 Carvedilol (Carvedilol) 6.25 Mg Tablet, 6.25 MG PO BID, TAB 03/12/20 Discontinued Reported Medications Gabapentin (Neurontin) 300 Mg Capsule, 300 MG PO TID, CAP 03/12/20 Discontinued Scripts Lancets/Blood Glucose Strips (Lancet 30G-Glucose Test Strip) 1 Each Combo..pkg, EACH ACHS for Hyperglycemia, #100 Prov:GAYATRI GILL DO 12/25/19 Lancets (Blood Lancets) 1 Each Each, EACH ACHS for Hyperglycemia, #100 Prov:GAYATRI GILL DO 12/25/19 Blood-Glucose Meter (Blood Glucose Meter) 1 Each Each, EACH ACHS for Hyperglycemia, #1 Prov:GAYATRI GILL DO 12/25/19 Pen Needle, Diabetic (Advocate Pen Needle) 1 Each Dis.needle, EACH MC ACHS for Hyperglycemia, #100 Prov:GAYATRI GILL DO 12/25/19 Insulin Aspart (Novolog Flexpen) 300 Units/3 Ml Solution, 4 UNITS SQ AC, #5 EA Prov:GILLGAYATRI COREY 12/25/19 Insulin Detemir (Levemir Flextouch) 100 Unit/1 Ml Insuln.pen, 16 UNIT SQ HS, #5 EA Prov:GAYATRI GILL DO 12/25/19 Hydrocodone/Acetaminophen (Hydrocodone-Acetamin 5-325 mg) 1 Each Tablet, 1 TAB PO Q4H PRN for PAIN-MODERATE (5-7), #30 TAB Prov:GAYATRI GILL DO 12/25/19 Losartan Potassium (Losartan Potassium) 25 Mg Tablet, 25 MG PO DAILY, #30 TAB Prov:GAYATRI GILL DO 12/25/19 Diltiazem HCl (Diltiazem HCl) 60 Mg Tablet, 60 MG PO Q6HR, #120 TAB Prov:GAYATRI GILL DO 12/25/19 Ipratropium/Albuterol Sulfate (Iprat-Albut 0.5-3(2.5) mg/3 ml) 3 Ml Ampul.neb, 3 ML INH RTQ6HR, #90 INHALER Prov:GAYATRI GILL DO 12/25/19 Nicotine (Nicoderm Cq) 1 Each Patch.td24, 21 MG TD DAILY@0900, #30 PATCH Prov:GAYATRI GILL DO 12/25/19 Apixaban (Eliquis) 5 Mg Tablet, 5 MG PO BID, #60 TAB Prov:GAYATRI GILL DO 12/25/19 Clopidogrel Bisulfate (Clopidogrel) 75 Mg Tablet, 75 MG PO DAILY, #30 TAB Prov:GAYATRI GILL DO 12/25/19 Potassium Chloride (Potassium Chloride) 20 Meq Tab.er.prt, 20 MEQ PO BID, #60 TAB Prov:GAYATRI GILL DO 12/25/19 Atorvastatin Calcium (Atorvastatin Calcium) 80 Mg Tablet, 80 MG PO HS, #30 TAB Prov:GAYATRI GILL DO 12/25/19 Objective Exam Constitutional: [] HEENT: [] Neck: [] Cardiovascular: [] Respiratory: [] Gastrointestinal: [] Genitourinary: [] Skin: [] Back/Spine: [] Extremities: The cast in good condition still wrapped with Davonte wraps. He can move his toes and states he has "normal" sensation for him which is still altered but unchanged from prior to his fracture. Mild swelling.[] Neurologic: [] Psychiatric: [] Hematologic/lymphatic/immunologic: [] Vital Signs Vital Signs Date Time Temp Pulse Resp B/P (MAP) Pulse Ox O2 Delivery O2 Flow Rate FiO2 08/07/21 08:01 Room Air 0.00 08/07/21 07:35 36.3 85 20 125/67 100 Room Air 08/07/21 07:00 97 08/07/21 03:25 36.8 90 20 123/72 96 Room Air 08/07/21 01:00 87 08/07/21 00:07 37.1 84 20 126/65 97 Room Air 08/06/21 20:30 Room Air 08/06/21 19:38 36.6 86 20 105/59 96 Room Air 08/06/21 19:00 91 08/06/21 15:34 36.8 85 22 122/62 100 Room Air 08/06/21 12:46 94 08/06/21 11:56 36.7 95 20 124/72 99 Room Air I & O 08/07/21 07:00 Intake Total 1765 ml Output Total 3145 ml Balance -1380 ml Lab Results Laboratory Tests 08/06/21 15:37: Glucometer 217H 08/06/21 20:53: Glucometer 263H 08/07/21 05:24: White Blood Count 10.4, Red Blood Count 3.74L, Hemoglobin 10.6L, Hematocrit 33L, Mean Corpuscular Volume 87, Mean Corpuscular Hemoglobin 28, Mean Corpuscular Hemoglobin Concent 33, Red Cell Distribution Width 13.5, Platelet Count 254, M ryan Platelet Volume 10.3, Immature Granulocyte % (Auto) 0, Neutrophils (%) (Auto) 74, Lymphocytes (%) (Auto) 14, Monocytes (%) (Auto) 9, Eosinophils (%) (Auto) 2, Basophils (%) (Auto) 1, Neutrophils # (Auto) 7.7, Lymphocytes # (Auto) 1.5, Monocytes # (Auto) 0.9, Eosinophils # (Auto) 0.2, Basophils # (Auto) 0.1, Immature Granulocyte # (Auto) 0.0, Sodium Level 134L, Potassium Level 3.3L, Chloride Level 99, Carbon Dioxide Level 26, Anion Gap 9, Blood Urea Nitrogen 14, Creatinine 1.00, Estimat Glomerular Filtration Rate 88, BUN/Creatinine Ratio 14, Glucose Level 191H, Calcium Level 8.3L, Corrected Calcium 9.1, Magnesium Level 2.2, Total Bilirubin 0.7, Aspartate Amino Transf (AST/SGOT) 14, Alanine Aminotransferase (ALT/SGPT) 16, Alkaline Phosphatase 61, Total Protein 6.2L, A lbumin 3.0L 08/07/21 10:53: Glucometer 227H Microbiology 08/03/21 Urine Culture - Final, Complete Escherichia coli Imaging I reviewed his MRI and it shows cortical thickening at the junction mid and distal thirds of the tibia on the right with a radiolucency in the medial cortex. Assessment and Plan Assessment Doing better regarding fibula fracture Problem List Unchanged Plan I discussed the MRI findings with Mr. Lacy. Again were not sure what has caused the cortical thickening in the radiolucency medially. This could be osteomyelitis but there is no evidence of fluid on the MRI. He has had no issues with his tibia although in talking with him more he thinks he broke his leg on the right when he was 10 years old but he is not sure where. I told him I discussed his findings with Dr. Gill and we thought it may be a good idea to have him see an orthopedic oncologist in [place] at . She is a start working on this on Monday. They may want to just see the MRI and x-rays and decide the next step. They may want to biopsy this or just watch it.In the meantime we will continue with his cast. I will incorporate the cast Monday since his swelling should be pretty much stable. Final Diagonsis Fracture right distal fibula Level of the visit: Level 3 RADHA WHITFIELD MD Aug 07, 2021 11:53
--- NOTE | 2021-08-07 16:40 | Progress Note - Cardiology ---
Cardiology SOAP Progress Note Subjective: No cp or palp or syncope or shortness of breath No n/v/d Gen weakness and malaise present, improving Objective: I&O/Vital Signs 08/07/21 08/07/21 08/07/21 08/07/21 07:00 07:35 08:00 08:01 Temp 36.3 Pulse 97 85 Resp 20 B/P (MAP) 125/67 Pulse Ox 100 O2 Delivery Room Air Room Air Room Air O2 Flow Rate 0.00 08/07/21 08/07/21 08/07/21 12:10 12:48 15:24 Temp 35.9 36.9 Pulse 84 86 80 Resp 20 22 B/P (MAP) 123/66 142/65 Pulse Ox 99 99 O2 Delivery Room Air Room Air 08/07/21 00:00 Intake Total 1345 ml Output Total 1245 ml Balance 100 ml Weight (Pounds): 358 Weight (Ounces): 1.0 Weight (Calculated Kilograms): 162.482196 Constitutional: AAO x 3, well-developed, well-nourished Respiratory: No accessory muscle use; other (fair to good, bilateral air entry) Cardiovascular: regular rate-rhythm, S1 and S2, systolic murmur (soft ESTELA at card base) Gastrointestional: No tender; soft; No guarding, No rebound; audible bowel sounds Extremities: other (R loser leg and foot in cast; chronic reddish-brown discoloration of the skin of the L leg); No clubbing, No cyanosis Neurologic/Psychiatric: oriented x 3, other (moves all limbs) Skin: No rash on exposed areas, No ulcerations on exposed areas Results/Procedures: Labs Laboratory Tests 08/06/21 20:53: Glucometer 263H 08/07/21 05:24: White Blood Count 10.4, Red Blood Count 3.74L, Hemoglobin 10.6L, Hematocrit 33L, Mean Corpuscular Volume 87, Mean Corpuscular Hemoglobin 28, Mean Corpuscular Hemoglobin Concent 33, Red Cell Distribution Width 13.5, Platelet Count 254, Mean Platelet Volume 10.3, Immature Granulocyte % (Auto) 0, Neutrophils (%) (Auto) 74, Lymphocytes (%) (Auto) 14, Monocytes (%) (Auto) 9, Eosinophils (%) (Auto) 2, Basophils (%) (Auto) 1, Neutrophils # (Auto) 7.7, Lymphocytes # (Auto) 1.5, Monocytes # (Auto) 0.9, Eosinophils # (Auto) 0.2, Basophils # (Auto) 0.1, Immature Granulocyte # (Auto) 0.0, Sodium Level 134L, Potassium Level 3.3L, Chloride Level 99, Carbon Dioxide Level 26, Anion Gap 9, Blood Urea Nitrogen 14, Creatinine 1.00, Estimat Glomerular Filtration Rate 88, BUN/Creatinine Ratio 14, Glucose Level 191H, Calcium Level 8.3L, Corrected Calcium 9.1, Magnesium Level 2.2, Total Bilirubin 0.7, Aspartate Amino Transf (AST/SGOT) 14, Alanine Aminotransferase (ALT/SGPT) 16, Alkaline Phosphatase 61, Total Protein 6.2L, Albumin 3.0L 08/07/21 10:53: Glucometer 227H 08/07/21 15:27: Glucometer 253H Microbiology 08/03/21 Urine Culture - Final, Complete Escherichia coli Laboratory Tests 08/06/21 06:11 08/07/21 05:24 A/P: Assessment: PAF - cardio[place] [address] Storm - ablation in December [address] Storm - MAMADOU with electrical cardioversion on August 05, 2021 Hypokalemia Diabetic hyperosmolar nonketotic hyperglycemia - managed by the [facility] [place] Acute renal failure at presentation, resolved with iv fluids H/o congestive heart failure, resolved, initially ejection fraction was 20%. Repeat echocardiogram showed improvement in left ventricular function with ejection fraction 50 to 55%. MAMADOU confirmed normal left ventricular function. Mild coronary artery disease per cardiac catheterization done in December 2019 History of CVA, received thrombolytics, required rehabilitation Hypertension, controlled Hyperlipidemia Baseline abnormal EKG with right bundle branch block and left anterior fascicular block Tobaccoism - advised to quit History of meth abuse - advised to continue to refrain Plan: I interviewed and examined him and reviewed his records Replenish K Monitor labs I answered his CV-related questions HUNTER BERGERON MD FACP FAC CCDS Aug 07, 2021 16:40
[2021-08-08 05:47] LABS: BASOPHILS # (AUTO) 0.1 10^3/uL (0.0-0.1); BASOPHILS % (AUTO) 1 % (0-10); EOSINOPHILS # (AUTO) 0.2 10^3/uL (0.0-0.3); EOSINOPHILS % (AUTO) 2 % (0-10); HEMATOCRIT 33 % (40-54); HEMOGLOBIN 10.7 g/dL (13.3-17.7); LYMPHOCYTES # (AUTO) 1.5 10^3/uL (1.0-4.0); LYMPHOCYTES % (AUTO) 14 % (12-44); MEAN CORPUSCULAR HEMOGLOBIN 28 pg (25-34); MEAN CORPUSCULAR HGB CONC 32 g/dL (32-36); MEAN CORPUSCULAR VOLUME 88 fL (80-99); MEAN PLATELET VOLUME 9.9 fL (9.0-12.2); MONOCYTES % (AUTO) 10 % (0-12); NEUTROPHILS # (AUTO) 7.4 10^3/uL (1.8-7.8); NEUTROPHILS % (AUTO) 72 % (42-75); PLATELET COUNT 263 10^3/uL (130-400); WHITE BLOOD COUNT 10.2 10^3/uL (4.3-11.0)
[2021-08-08] MEDS: inSUlin ASPART (NovoLOG) 1 UNIT/0.01 ML (CHARGE PER UNIT) SC SCH ×4 (06:00→20:19)
[2021-08-08 06:04] LABS: ALBUMIN 3.1 GM/DL (3.2-4.5); POTASSIUM 3.1 MMOL/L (3.6-5.0)
[2021-08-08 06:05] LABS: CALCIUM 8.5 MG/DL (8.5-10.1)
[2021-08-08 06:07] LABS: TOTAL PROTEIN 6.5 GM/DL (6.4-8.2)
[2021-08-08 06:08] LABS: BILIRUBIN,TOTAL 0.7 MG/DL (0.1-1.0)
[2021-08-08 06:10] LABS: CREATININE SERUM 0.9 MG/DL (0.60-1.30)
[2021-08-08] MEDS: cefTRIAXone 1 GM PRE-MIX 50 ML IV SCH (08:17)
[2021-08-08] MEDS: LACTULOSE SYRUP 10GM/15ML (ENULOSE) 30ML UDC PO SCH ×2 (08:17→20:18)
[2021-08-08] MEDS: PANTOPRAZOLE 40 MG (PROTONIX) TAB PO SCH (08:18)
[2021-08-08] MEDS: dilTIAZem120 MG (CARDIZEM CD) CAP PO SCH (08:18)
[2021-08-08] MEDS: AMIODARONE 200 MG (CORDARONE) TAB PO SCH ×2 (08:18→20:12)
[2021-08-08] MEDS: APIXABAN 5 MG (ELIQUIS) TABLET PO SCH ×2 (08:18→20:12)
[2021-08-08] MEDS: SENNA W/DOCUSATE (SENOKOT S) TABLET PO SCH ×2 (08:18→20:12)
[2021-08-08] MEDS: DOCUSATE SODIUM 100 MG (COLACE) CAP PO SCH ×2 (08:18→20:12)
--- NOTE | 2021-08-08 08:30 | Progress Note - Hospitalist ---
Subjective HPI/CC On Admission Date Seen by Provider: Aug 08, 2021 Time Seen by Provider: 12:15 CC: Acute renal failure with hyperglycemia HPI: 56 yr old WM with a past medical history of diabetes, chronic kidney disea se, and meth use in the past. He presented to the ER found to be in atrial flutter. Cardiology was consulted. Pt was found to have an ankle fracture. He was placed on anticoagulation, IV fluids, and insulin drip for severe hyperglycemia, acidosis, and hyponatremia. Currently he is doing much better and having no new problems. Subjective/Events-last exam Patient doing about the same Awaiting placement Sleeping currently Review of Systems General: Fatigue, Malaise Musculoskeletal: leg pain Objective Exam Vital Signs Vital Signs Date Time Temp Pulse Resp B/P (MAP) Pulse Ox O2 Delivery O2 Flow Rate FiO2 08/09/21 03:12 36.7 78 20 142/81 100 Room Air 08/08/21 08:00 0.00 08/05/21 02:28 21 Capillary Refill : Less Than 3 Seconds General Appearance: No Apparent Distress, WD/WN, Chronically ill, Obese Results/Procedures Lab Laboratory Tests 08/09/21 05:17 Patient resulted labs reviewed. Assessment/Plan Assessment and Plan Assess & Plan/Chief Complaint Assessment: Status post DKA Fibula fracture versus mass needs orthopedic oncology as outpatient Hyponatremia Diabetes [id number] A. fib with RVR status post cardioversion after MAMADOU showed no thrombus Plan: Continue supportive care Hep-Lock IV fluid DC catheter 08/06/2021: Continue supportive care MRI reviewed Awaiting group home placement 08/07/2021: Await group home placement 08/08/2021: Await group home GAYATRI GILL DO Aug 08, 2021 08:30
[2021-08-08] MEDS ORDERED: KCL 20 MEQ TAB (K-DUR) PO NR (12:45)
--- NOTE | 2021-08-08 16:24 | Progress Note - Cardiology ---
Cardiology SOAP Progress Note Subjective: No cp or palp or syncope Gen malaise present No shortness of breath at rest No n/v/d Objective: I&O/Vital Signs 08/08/21 08/08/21 08/08/21 08/08/21 07:00 07:47 08:00 08:13 Temp 36.1 Pulse 91 80 Resp 18 B/P (MAP) 114/59 Pulse Ox 98 98 O2 Delivery Room Air Room Air Room Air O2 Flow Rate 0.00 08/08/21 08/08/21 08/08/21 11:58 12:42 15:34 Temp 36.3 36.4 Pulse 79 80 71 Resp 20 18 B/P (MAP) 118/62 125/71 Pulse Ox 98 100 O2 Delivery Room Air Room Air 08/08/21 00:00 Intake Total 1680 ml Output Total 950 ml Balance 730 ml Weight (Pounds): 358 Weight (Ounces): 1.0 Weight (Calculated Kilograms): 162.912157 Constitutional: AAO x 3, well-developed, well-nourished Respiratory: No accessory muscle use; other (fair to good, bilateral air entry) Cardiovascular: regular rate-rhythm, S1 and S2, systolic murmur (soft ESTELA at card base) Gastrointestional: No tender; soft; No guarding, No rebound; audible bowel sounds Extremities: other (R loser leg and foot in cast; chronic reddish-brown discoloration of the skin of the L leg); No clubbing, No cyanosis Neurologic/Psychiatric: oriented x 3, other (moves all limbs) Skin: No rash on exposed areas, No ulcerations on exposed areas Results/Procedures: Labs Laboratory Tests 08/07/21 20:05: Glucometer 161H 08/08/21 05:30: White Blood Count 10.2, Red Blood Count 3.78L, Hemoglobin 10.7L, Hematocrit 33L, Mean Corpuscular Volume 88, Mean Corpuscular Hemoglobin 28, Mean Corpuscular Hemoglobin Concent 32, Red Cell Distribution Width 13.4, Platelet Count 263, Mean Platelet Volume 9.9, Immature Granulocyte % (Auto) 0, Neutrophils (%) (Auto) 72, Lymphocytes (%) (Auto) 14, Monocytes (%) (Auto) 10, Eosinophils (%) (Auto) 2, Basophils (%) (Auto) 1, Neutrophils # (Auto) 7.4, Lymphocytes # (Auto) 1.5, Monocytes # (Auto) 1.0, Eosinophils # (Auto) 0.2, Basophils # (Auto) 0.1, Immature Granulocyte # (Auto) 0.0, Sodium Level 137, Potassium Level 3.1L, Chloride Level 100, Carbon Dioxide Level 28, Anion Gap 9, Blood Urea Nitrogen 14, Creatinine 0.90, Estimat Glomerular Filtration Rate 100, BUN/Creatinine Ratio 16, Glucose Level 110H, Calcium Level 8.5, Corrected Calcium 9.2, Total Bilirubin 0.7, Aspartate Amino Transf (AST/SGOT) 21, Alanine Aminotransferase (ALT/SGPT) 22, Alkaline Phosphatase 64, Total Protein 6.5, Albumin 3.1L 08/08/21 11:04: Glucometer 229H 08/08/21 15:38: Glucometer 240H Microbiology 08/03/21 Urine Culture - Final, Complete Escherichia coli Laboratory Tests 08/07/21 05:24 08/08/21 05:30 A/P: Assessment: PAF - cardio[place] [address] Storm - ablation in December [address] Storm - MAMADOU with electrical cardioversion on August 05, [address] Burgess Hypokalemia Diabetic hyperosmolar nonketotic hyperglycemia - managed by the [facility] [place] Acute renal failure at presentation, resolved with iv fluids H/o CHF and cardiomyopathy, resolved - Echocardiogram of November 2019 showed LVEF 15-20%. Mild MR. LA dilated. PASP 60- 65mmHg - Echocardiogram of September 01, 2020 showed LVEF 50-55%. LA is mod dilated. A bicuspid aortic valve morphology cannot be excluded. The leaflets are mildly thickened and mildly calcified - MAMADOU on 08/05/21: LVEF 50%, dilated atria, no ASD Mild coronary artery disease per cardiac catheterization done in December 2019 History of CVA, received thrombolytics, required rehabilitation Hypertension, controlled Hyperlipidemia Baseline abnormal EKG with right bundle branch block and left anterior fascicular block Tobaccoism - advised to quit History of meth abuse - advised to continue to refrain Plan: Replenish K Monitor labs I answered his CV-related questions in detail HUNTER BERGERON MD FACP FAC CCDS Aug 08, 2021 16:24
[2021-08-08] MEDS: KCL 20 MEQ TAB (K-DUR) PO SCH (17:25)
[2021-08-09 05:24] LABS: BASOPHILS # (AUTO) 0.1 10^3/uL (0.0-0.1); BASOPHILS % (AUTO) 1 % (0-10); EOSINOPHILS # (AUTO) 0.3 10^3/uL (0.0-0.3); EOSINOPHILS % (AUTO) 3 % (0-10); HEMATOCRIT 35 % (40-54); HEMOGLOBIN 11.2 g/dL (13.3-17.7); LYMPHOCYTES # (AUTO) 1.6 10^3/uL (1.0-4.0); LYMPHOCYTES % (AUTO) 15 % (12-44); MEAN CORPUSCULAR HEMOGLOBIN 28 pg (25-34); MEAN CORPUSCULAR HGB CONC 32 g/dL (32-36); MEAN CORPUSCULAR VOLUME 89 fL (80-99); MEAN PLATELET VOLUME 9.3 fL (9.0-12.2); MONOCYTES # (AUTO) 0.9 10^3/uL (0.0-1.0); MONOCYTES % (AUTO) 8 % (0-12); NEUTROPHILS # (AUTO) 8.1 10^3/uL (1.8-7.8); NEUTROPHILS % (AUTO) 74 % (42-75); PLATELET COUNT 306 10^3/uL (130-400); WHITE BLOOD COUNT 10.9 10^3/uL (4.3-11.0)
[2021-08-09 05:43] LABS: ALBUMIN 3.2 GM/DL (3.2-4.5)
[2021-08-09 05:45] LABS: CALCIUM 8.8 MG/DL (8.5-10.1)
[2021-08-09 05:46] LABS: TOTAL PROTEIN 6.8 GM/DL (6.4-8.2)
[2021-08-09 05:48] LABS: BILIRUBIN,TOTAL 0.7 MG/DL (0.1-1.0)
[2021-08-09 05:50] LABS: CREATININE SERUM 1.08 MG/DL (0.60-1.30)
[2021-08-09] MEDS: inSUlin ASPART (NovoLOG) 1 UNIT/0.01 ML (CHARGE PER UNIT) SC SCH ×2 (05:51→13:02)
[2021-08-09] MEDS: AMIODARONE 200 MG (CORDARONE) TAB PO SCH (08:11)
[2021-08-09] MEDS: LACTULOSE SYRUP 10GM/15ML (ENULOSE) 30ML UDC PO SCH (08:12)
[2021-08-09] MEDS: PANTOPRAZOLE 40 MG (PROTONIX) TAB PO SCH (08:12)
[2021-08-09] MEDS: dilTIAZem120 MG (CARDIZEM CD) CAP PO SCH (08:12)
[2021-08-09] MEDS: APIXABAN 5 MG (ELIQUIS) TABLET PO SCH (08:12)
[2021-08-09] MEDS: KCL 20 MEQ TAB (K-DUR) PO SCH (08:12)
[2021-08-09] MEDS: SENNA W/DOCUSATE (SENOKOT S) TABLET PO SCH (08:12)
[2021-08-09] MEDS: DOCUSATE SODIUM 100 MG (COLACE) CAP PO SCH (08:12)
--- NOTE | 2021-08-09 08:54 | Cardiology Progress Note ---
Subjective Date Seen by Provider: Aug 09, 2021 Time Seen by Provider: 08:51 Subjective/Events-last exam Patient is sitting in chair and receiving physical therapy. Feeling better. No new complaint Review of Systems General: No Chills, No Night Sweats, No Fatigue, No Malaise, No Appetite, No Other HEENT: No Head Aches, No Visual Changes, No Eye Pain, No Ear Pain, No Dysphasia, No Sinus Congestion, No Post Nasal Drip, No Sore Throat, No Other Pulmonary: No Dyspnea, No Cough, No Pleuritic Chest Pain, No Other Cardiovascular: No: Chest Pain, Palpitations, Orthopnea, Paroxysmal Noc. Dyspnea, Edema, Lt Headedness, Other Objective-Cardiology Exam Last Set of Vital Signs Vital Signs 08/05/21 08/08/21 08/09/21 02:28 08:00 08:10 Temp 36.4 Pulse 74 Resp 18 B/P (MAP) 124/70 Pulse Ox 100 O2 Delivery Room Air O2 Flow Rate 0.00 FiO2 21 I&O Intake and Output 08/09/21 00:00 Intake Total 1770 ml Output Total 4000 ml Balance -2230 ml Intake Oral 1770 ml Output Urine Total 4000 ml General: Alert, Oriented X3, Cooperative HEENT: Atraumatic, PERRLA Neck: Supple, No JVD, No Thyromegaly Lungs: Clear to Auscultation, Normal Air Movement Heart: Regular Rate, Normal S1, Normal S2, No Murmurs Abdomen: Normal Bowel Sounds, Soft, No Tenderness, No Hepatosplenomegaly, No Masses Extremities: No Clubbing, No Cyanosis, No Edema, Normal Pulses, No Tenderness/Swelling Skin: No Rashes, No Breakdown, No Significant Lesion Neuro: Normal Speech, Normal Tone, Sensation Intact, Other (Right fracture ankle) Psych/Mental Status: Mental Status NL, Mood NL Results Lab Laboratory Tests 08/09/21 05:17 A/P-Cardiology Admission Diagnosis Paroxysmal atrial fibrillation/flutter Congestive heart failure, chronic compensated left ventricular systolic dysfunction nonischemic cardiomyopathy Diabetic ketoacidosis Acute renal failure Assessment/Plan Paroxysmal atrial fibrillation, flutter, underwent cardio[place] [address] Storm. Had ablation done in December [address] Storm, underwent MAMADOU with electrical cardioversion on August 05, 2021, continue on oral amiodarone and monitor. Diabetic hyperosmolar nonketotic hyperglycemia. Significant improvement, managed by medical team Right fibula fracture versus mass, managed by medical team and being referred for oncology and orthopedic Acute renal failure, renal function better. Continue to monitor Congestive heart failure, resolved, initially ejection fraction was 20%. Repeat echocardiogram showed improvement in left ventricular function with ejection fraction 50 to 55%. MAMADOU confirmed normal left ventricular function. Mild coronary artery disease per cardiac catheterization done in December 2019. Continue to monitor History of CVA, received thrombolytic required rehabilitation Hypertension, monitor blood pressure Hyperlipidemia, monitor lipids Baseline abnormal EKG with right bundle branch block and left anterior fascicular block Tobaccoism, educated on smoking cessation History of meth abuse. Patient reported that he did not use any illicit drugs recently History of noncompliance with medication NIKA SOSA MD Aug 09, 2021 08:54
--- NOTE | 2021-08-09 09:19 | Physical Therapy Daily Note ---
PT Daily Note-Current Subjective Patient presented sitting in his chair and agreed to perform exercises with therapy. Mental Status Patient Orientation: Person, Place, Time, Situation Transfers SCALE: Activities may be completed with or without assistive devices. 2-Stvthecytg-vqrgzsa completes the activity by him/herself with no assistance from a helper. 5-Set-up or Clean-up Assistance-helper sets up or cleans up; patient completes activity. [place] assists only prior to or following the activity. 4-Supervision or Touching Assistance-helper provides verbal cues and/or touching/steadying and/or contact guard assistance as patient completes activity. Assistance may be provided throughout the activity or intermittently. 3-Partial/Moderate Assistance-helper does LESS THAN HALF the effort. [place] lifts, holds or supports trunk or limbs, but provides less than half the effort. 2-Substantial/Maximal Assistance-helper does MORE THAN HALF the effort. [place] lifts or holds trunk or limbs and provides more than half the effort. 7-Kgpbnlvjk-ymalnw does ALL the effort. Patient does none of the effort to complete the activity. Or, the assistance of 2 or more helpers is required for the patient to complete the activity. If activity was not attempted, code reason: 7-Patient Refused. 9-Not Applicable-not attempted and the patient did not perform the activity before the current illness, exacerbation or injury. 10-Not Attempted due to Environmental Limitations-(lack of equipment, weather restraints, etc.). 88-Not Attempted due to Medical Conditions or Safety Concerns. Sit to Stand (QC): 4 Patient performed sit to stand transfer with CGA and FWW. Patient required cues for NWB on R LE Weight Bearing Right Lower Extremity: Right Non Weight Bearing Exercises Seated Therapy Exercises: Sit to stand (5), Long arc quads Seated Reps: [address] Ex=Flex, Abd, Ext, Marching Standing Reps: 10 Assessment Patient performed seated and standing exercises during therapy session. Patient required rest breaks throughout therapy session due to fatigue. Patient required cues for NWB on R LE during standing. Patient completed sit to stand exercises with CGA from an elevated lift chair. PT Short Term Goals Short Term Goals Time Frame: Aug 06, 2021 PT Chcf Goals Filling Station Laborer Goals PT Filling Station Laborer Goals Time Frame: Aug 14, 2021 Roll Left & Right (QC): 4 Sit to Lying (QC): 4 Lying-Sitting on Side/Bed(QC): 4 Sit to Stand (QC): 4 Chair/[id number]-[id number] Xfer(QC): 4 Toilet Transfer (QC): 4 Does the Patient Walk: No and Walking Goal IS indicated Walk 10 feet (QC): 4 Walk 50ft with 2 Turns (QC): 4 PT Plan Problem List Problem List: Activity Tolerance, Functional Strength, Safety, Balance, Gait, Transfer, Bed Mobility, ROM Treatment/Plan Treatment Plan: Continue Plan of Care Treatment Plan: Bed Mobility, Education, Functional Activity Jay, Functional Strength, Gait, Safety, Therapeutic Exercise, Transfers Treatment Duration: Aug 14, 2021 Frequency: 6 times per week Estimated Hrs Per Day: .25 hour per day Patient and/or Family Agrees t: Yes Time/GCodes Time In: 834 Time Out: 849 Total Billed Treatment Time: 15 Total Billed Treatment 1 Visit EX 15 min TALON CANELA PT Aug 09, 2021 09:19
--- NOTE | 2021-08-09 10:37 | Progress Note - Ortho ---
Progress Note Subjective Date of Exam 08/09/21 Chief Complaint Fracture right distal fibula HPI/Events since last exam Mr. Lara 1 week since injury to the right ankle with mildly displaced fracture right distal fibula.Is presently in a short leg cast and having no problems with the cast.Awaiting to see what [facility] thinks about seeing him for his tibia radiolucency Review of Systems Reviewed and no additions or change Allergies: Coded Allergies: No Known Drug Allergies (Unverified , 02/26/14) Home Meds Reported Medications Atorvastatin Calcium (Atorvastatin Calcium) 80 Mg Tablet, 80 MG PO HS, TAB 08/03/21 Potassium Chloride (Potassium Chloride) 20 Meq Tab.er.prt, 20 MEQ PO DAILY 08/03/21 Gabapentin (Gabapentin) 600 Mg Tablet, 600 MG PO TID, TAB 08/03/21 Apixaban (Eliquis) 5 Mg Tablet, 5 MG PO BID, TAB 08/03/21 Clopidogrel Bisulfate (Clopidogrel) 75 Mg Tablet, 75 MG PO DAILY, TAB 08/03/21 Duloxetine HCl (Duloxetine HCl) 30 Mg Capsule.dr, 30 MG PO BID, CAP 08/03/21 Dulaglutide (Trulicity) 1.5 Mg/0.5 Ml Pen.injctr, 1.5 MG IJ WEEK, EA 08/03/21 Metolazone (Metolazone) 5 Mg Tablet, 5 MG PO DAILY, TAB 03/12/20 Furosemide (Furosemide) 40 Mg Tablet, 80 MG PO DAILY, TAB TAKES 2 (40MG) TABS 03/12/20 Carvedilol (Carvedilol) 6.25 Mg Tablet, 6.25 MG PO BID, TAB 03/12/20 Discontinued Reported Medications Gabapentin (Neurontin) 300 Mg Capsule, 300 MG PO TID, CAP 03/12/20 Discontinued Scripts Lancets/Blood Glucose Strips (Lancet 30G-Glucose Test Strip) 1 Each Combo..pkg, EACH ACHS for Hyperglycemia, #100 Prov:GAYATRI GILL DO 12/25/19 Lancets (Blood Lancets) 1 Each Each, EACH ACHS for Hyperglycemia, #100 Prov:GAYATRI GILL DO 12/25/19 Blood-Glucose Meter (Blood Glucose Meter) 1 Each Each, EACH ACHS for Hyperglycemia, #1 Prov:GAYATRI GILL DO 12/25/19 Pen Needle, Diabetic (Advocate Pen Needle) 1 Each Dis.needle, EACH ACHS for Hyperglycemia, #100 Prov:GAYATRI GILL DO 12/25/19 Insulin Aspart (Novolog Flexpen) 300 Units/3 Ml Solution, 4 UNITS SQ AC, #5 EA Prov:GAYATRI GILL DO 12/25/19 Insulin Detemir (Levemir Flextouch) 100 Unit/1 Ml Insuln.pen, 16 UNIT SQ HS, #5 EA Prov:GAYATRI GILL DO 12/25/19 Hydrocodone/Acetaminophen (Hydrocodone-Acetamin 5-325 mg) 1 Each Tablet, 1 TAB PO Q4H PRN for PAIN-MODERATE (5-7), #30 TAB Prov:GAYATRI GILL DO 12/25/19 Losartan Potassium (Losartan Potassium) 25 Mg Tablet, 25 MG PO DAILY, #30 TAB Prov:GAYATRI GILL DO 12/25/19 Diltiazem HCl (Diltiazem HCl) 60 Mg Tablet, 60 MG PO Q6HR, #120 TAB Prov:GAYATRI GILL DO 12/25/19 Ipratropium/Albuterol Sulfate (Iprat-Albut 0.5-3(2.5) mg/3 ml) 3 Ml Ampul.neb, 3 ML INH RTQ6HR, #90 INHALER Prov:GAYATRI GILL DO 12/25/19 Nicotine (Nicoderm Cq) 1 Each Patch.td24, 21 MG TD DAILY@0900, #30 PATCH Prov:GAYATRI GILL DO 12/25/19 Apixaban (Eliquis) 5 Mg Tablet, 5 MG PO BID, #60 TAB Prov:GAYATRI GILL DO 12/25/19 Clopidogrel Bisulfate (Clopidogrel) 75 Mg Tablet, 75 MG PO DAILY, #30 TAB Prov:GAYATRI GILL DO 12/25/19 Potassium Chloride (Potassium Chloride) 20 Meq Tab.er.prt, 20 MEQ PO BID, #60 TAB Prov:GAYATRI GILL DO 12/25/19 Atorvastatin Calcium (Atorvastatin Calcium) 80 Mg Tablet, 80 MG PO HS, #30 TAB Prov:GAYATRI GLIL DO 12/25/19 Objective Exam Constitutional: [] HEENT: [] Neck: [] Cardiovascular: [] Respiratory: [] Gastrointestinal: [] Genitourinary: [] Skin: [] Back/Spine: [] Extremities: [Remove the Davonte wrap from the cast. The cast in good condition. He can move his toes and Has good capillary refill. He still has altered sensation to his toes which was present prior to his fall. This is secondary to diabetic neuropathy.] Neurologic: [] Psychiatric: [] Hematologic/lymphatic/immunologic: [] Vital Signs Vital Signs Date Time Temp Pulse Resp B/P (MAP) Pulse Ox O2 Delivery O2 Flow Rate FiO2 08/09/21 08:10 36.4 74 18 124/70 100 Room Air 08/09/21 07:36 Room Air 08/09/21 07:00 72 08/09/21 03:12 36.7 78 20 142/81 100 Room Air 08/09/21 01:03 69 08/08/21 23:09 36.2 75 20 121/72 100 Room Air 08/08/21 20:15 36.9 73 20 112/71 96 Room Air 08/08/21 20:10 Room Air 08/08/21 19:55 72 08/08/21 15:34 36.4 71 18 125/71 100 Room Air 08/08/21 12:42 80 08/08/21 11:58 36.3 79 20 118/62 98 Room Air I & O 08/09/21 07:00 Intake Total 1910 ml Output Total 3800 ml Balance -1890 ml Lab Results Laboratory Tests 08/08/21 11:04: Glucometer 229H 08/08/21 15:38: Glucometer 240H 08/08/21 20:09: Glucometer 196H 08/09/21 05:17: White Blood Count 10.9, Red Blood Count 3.96L, Hemoglobin 11.2L, Hematocrit 35L, Mean Corpuscular Volume 89, Mean Corpuscular Hemoglobin 28, Mean Corpuscular Hemoglobin Concent 32, Red Cell Distribution Width 13.3, Platelet Count 306, Mean Platelet Volume 9.3, Immature Granulocyte % (Auto) 0, Neutrophils (%) (Auto) 74, Lymphocytes (%) (Auto) 15, Monocytes (%) (Auto) 8, Eosinophils (%) (Auto) 3, Basophils (%) (Auto) 1, Neutrophils # (Auto) 8.1H, Lymphocytes # (Auto) 1.6, Monocytes # (Auto) 0.9, Eosinophils # (Auto) 0.3, Basophils # (Auto) 0.1, Immature Granulocyte # (Auto) 0.0, Sodium Level 136, Potassium Level 4.0, Chloride Level 101, Carbon Dioxide Level 26, Anion Gap 9, Blood Urea Nitrogen 14, Creatinine 1.08, Estimat Glomerular Filtration Rate 81, BUN/Creatinine Ratio 13, Glucose Level 127H, Calcium Level 8.8, Corrected Calcium 9.4, Total Bilirubin 0.7, Aspartate Amino Transf (AST/SGOT) 28, Alanine Aminotransferase (ALT/SGPT) 34, Alkaline Phosphatase 71, Total Protein 6.8, Albumin 3.2 Microbiology 08/03/21 Urine Culture - Final, Complete Escherichia coli Assessment and Plan Assessment Doing well regarding right Distal fibula fracture Problem List Unchanged Plan I incorporated his cast with a 4 inch fiberglass roll. He states he is probably can be transferred over to [facility] in the next day or so. Again we will see what [facility] says about evaluation of his tibia.He will need follow-up for his fibula in office in 1 week. Plan on removing his cast repeating x-rays and then applying another short leg cast Final Diagonsis Fracture right distal fibula Level of the visit: Level 3 RADHA WHITFIELD MD Aug 09, 2021 10:37
--- NOTE | 2021-08-09 11:49 | Occ Therapy Progress Note ---
Therapy Progress Note OT visited with pt, he initially agreed to OT tx with focus on UE exercises to increase activity tolerance. Pt completed x20 reps BUE shoulder flexion and x10 reps front punch before stopping and stating "I think I'm good". OT educated pt on purpose and benefit of OT, but he continued to decline at this time, as he wants to rest prior to discharging later today. Pt also declined ADLs, as he does not have clothes here yet. OT will attempt tx again tomorrow if pt still admitted. 1, visit [phone] DANIELLE CASILLAS OT Aug 09, 2021 11:49
[2021-08-09] MEDS ORDERED: DILT-27 PO (12:33)
[2021-08-09] MEDS ORDERED: AMIO200T65 PO (12:33)
--- NOTE | 2021-08-09 13:21 | Discharge Summary ---
Discharge Summary Hospital Course Hospital Course Date of Admission: Aug 02, 2021 at 15:34 Admission Diagnosis : Hyperosmolar hyperglycemic state Right distal Fibula fracture Hyponatremia Diabetes A. fib with RVR Acute renal insufficiency History of CHF and cardiomyopathy Coronary artery disease Hypertension Hyperlipidemia Tobacco use History of methamphetamine use UTI Family Physician/Provider: KarrieLocal Physician Date of Discharge: 08/09/21 Discharge Diagnosis: Hyperosmolar hyperglycemic state Right distal Fibula fracture Hyponatremia Diabetes A. fib with RVR Acute renal insufficiency History of CHF and cardiomyopathy Coronary artery disease Hypertension Hyperlipidemia Tobacco use History of methamphetamine use Right Distal tibia mass UTI Hospital Course: Pt admitted and placed on insulin drip, HHS resolved. Fibula fracture managed by Orthopedic Surgery, cast placed, note of abnormality of distal tibial diaphysis with differential of inflammatory/infectious etiology and mass or focal lytic lesion not excluded. Will need further follow up outpatient. Also had MAMADOU and cardioversion for A fib and followed by Cardiology inpatient. Discharged to assisted for further therapy. Completed 5 days of ceftriaxone for E coli UTI. Labs and Pending Lab Test: Laboratory Tests 08/08/21 15:38: Glucometer 240H 08/08/21 20:09: Glucometer 196H 08/09/21 05:17: White Blood Count 10.9, Red Blood Count 3.96L, Hemoglobin 11.2L, Hematocrit 35L, Mean Corpuscular Volume 89, Mean Corpuscular Hemoglobin 28, Mean Corpuscular Hemoglobin Concent 32, Red Cell Distribution Width 13.3, Platelet Count 306, Mean Platelet Volume 9.3, Immature Granulocyte % (Auto) 0, Neutrophils (%) (Auto) 74, Lymphocytes (%) (Auto) 15, Monocytes (%) (Auto) 8, Eosinophils (%) (Auto) 3, Basophils (%) (Auto) 1, Neutrophils # (Auto) 8.1H, Lymphocytes # (Auto) 1.6, Monocytes # (Auto) 0.9, Eosinophils # (Auto) 0.3, Basophils # (Auto) 0.1, Immature Granulocyte # (Auto) 0.0, Sodium Level 136, Potassium Level 4.0, Chloride Level 101, Carbon Dioxide Level 26, Anion Gap 9, Blood Urea Nitrogen 14, Creatinine 1.08, Estimat Glomerular Filtration Rate 81, BUN/Creatinine Ratio 13, Glucose Level 127H, Calcium Level 8.8, Corrected Calcium 9.4, Total Bilirubin 0.7, Aspartate Amino Transf (AST/SGOT) 28, Alanine Aminotransferase (ALT/SGPT) 34, Alkaline Phosphatase 71, Total Protein 6.8, Albumin 3.2 08/09/21 09:38: Influenza Type A (RT-PCR) Not Detected, Influenza Type B (RT-PCR) Not Detected, SARS-CoV-2 RNA (RT-PCR) Not Detected 08/09/21 11:11: Glucometer 208H Microbiology 08/03/21 Urine Culture - Final, Complete Escherichia coli Home Meds Active Diltiazem 24Hr ER (Diltiazem HCl) 120 Mg Cap.er.24h 120 Mg PO DAILY Amiodarone HCl 200 Mg Tablet 400 Mg PO BID Reported Atorvastatin Calcium 80 Mg Tablet 80 Mg PO HS Potassium Chloride 20 Meq Tab.er.prt 20 Meq PO DAILY Gabapentin 600 Mg Tablet 600 Mg PO TID Eliquis (Apixaban) 5 Mg Tablet 5 Mg PO BID Clopidogrel (Clopidogrel Bisulfate) 75 Mg Tablet 75 Mg PO DAILY Duloxetine HCl 30 Mg Capsule.dr 30 Mg PO BID Trulicity (Dulaglutide) 1.5 Mg/0.5 Ml Pen.injctr 1.5 Mg IJ WEEK Metolazone 5 Mg Tablet 5 Mg PO DAILY Furosemide 40 Mg Tablet 80 Mg PO DAILY TAKES 2 (40MG) TABS Skilled NF Admit to: [facility] Certification (SNF) I certify that SNF services are required to be given on an inpatient basis because of the above named patient's need for assisted care on a continuing basis for the conditions(s) for which he/she was receiving inpatient hospital services prior to his/her transfer to the SNF. Fdc Facility Order: Nursing Services, Physical Therapy-Evaluate & Treat Oxygen Delivery Method: Room Air Resuscitation Status: Full Code Zara Dorado Aug 09, 2021 13:13 Discharge Physical Exam General: Alert, No Acute Distress Lungs: Clear to Auscultation, Normal Air Movement Heart: Regular Rate, No Murmurs Abdomen: Normal Bowel Sounds, Soft Neuro: Normal Speech Psych/Mental Status: Mental Status ZARA VANESSA MD Aug 09, 2021 13:18
[2021-08-09 14:07] VITALS: BP 125/67
== END 2021-08-09 13:35 | DRG 682 ==
LOC: EDUNIT# 12:28 → ER 12:29 → ICU 15:34 → 4TH 08-04 13:07
PROVIDERS: ADMIT Internal Medicine; ATTEND Family Medicine
PROC: 2W3QX2Z Immobilization of Right Lower Leg using Cast (ICD-10-PCS; principal; 2021-08-03)
PROC: 5A2204Z Restoration of Cardiac Rhythm, Single (ICD-10-PCS; 2021-08-05)
PROC: 8E0ZXY6 Isolation (ICD-10-PCS; 2021-08-09)
DX: N17.9 Acute kidney failure, unspecified (principal); E11.00 Type 2 diabetes mellitus with hyperosmolarity without nonketotic hyperglycemic-hyperosmolar coma (NKHHC); E87.1 Hypo-osmolality and hyponatremia; I48.92 Unspecified atrial flutter; I50.22 Chronic systolic (congestive) heart failure; I42.8 Other cardiomyopathies; I45.2 Bifascicular block; I69.351 Hemiplegia and hemiparesis following cerebral infarction affecting right dominant side; Z20.822 Contact with and (suspected) exposure to COVID-19; N39.0 Urinary tract infection, site not specified; E86.0 Dehydration; S82.451A Displaced comminuted fracture of shaft of right fibula, initial encounter for closed fracture; G47.33 Obstructive sleep apnea (adult) (pediatric); I48.0 Paroxysmal atrial fibrillation; E78.00 Pure hypercholesterolemia, unspecified; E78.5 Hyperlipidemia, unspecified; I11.0 Hypertensive heart disease with heart failure; I25.10 Atherosclerotic heart disease of native coronary artery without angina pectoris; M89.9 Disorder of bone, unspecified; B96.20 Unspecified Escherichia coli [E. coli] as the cause of diseases classified elsewhere; F17.200 Nicotine dependence, unspecified, uncomplicated; M10.9 Gout, unspecified; Z79.01 Long term (current) use of anticoagulants; Z79.4 Long term (current) use of insulin; Z82.49 Family history of ischemic heart disease and other diseases of the circulatory system; Z83.3 Family history of diabetes mellitus; Z91.14 Patient's other noncompliance with medication regimen; W18.30XA Fall on same level, unspecified, initial encounter; Y92.009 Unspecified place in unspecified non-institutional (private) residence as the place of occurrence of the external cause
CPT/HCPCS: 36415; 36569; 36600; 70450; 71045; 73590; 73610; 76937; 80048; 80053; 81000; 82010; 82805; 82947; 83036; 83735; 85007; 85025; 85027; 87077; 87088; 87186; 87636; 92960; 93005; 93306; 96361; 96372; 96374; 96375

== ENCOUNTER → 2021-08-16 | Outpatient (CLI) | payer MEDICAID ==
[~2021-08-16] MED LIST changes: +AMIO200T65 PO; +DILT-27 PO; +DULA1.5P2 IJ; +DULO30CA49 PO; +GBPN600T PO
--- NOTE | 2021-08-16 11:19 | Diagnostic Imaging Report ---
INDICATION: Ankle fracture. TIME OF EXAM: 10:49 AM. COMPARISON: Correlation is made with the prior radiograph from 08/02/2021. FINDINGS: The distal fibular fracture is again noted. Fracture lines remain visible. No significant displacement or angulation is seen. The ankle mortise is fairly well maintained. The talar dome is smooth. IMPRESSION: Distal fibular fracture, similar to the examination from 08/02/2021. Overall alignment is anatomic. Dictated by: Dictated on workstation # [id number]
== END ==
LOC: ORTHO 10:24
PROVIDERS: ATTEND Orthopaedic Surgery
DX: S82.891D Other fracture of right lower leg, subsequent encounter for closed fracture with routine healing (principal); X58.XXXD Exposure to other specified factors, subsequent encounter
CPT/HCPCS: 73610

== ENCOUNTER 2021-08-30 18:54 | Inpatient (IN) | payer MEDICAID ==
[~2021-08-30] VITALS: Ht 180.3 cm; Wt 150.0 kg
[~2021-08-30 18:54] MED LIST changes: -AMIO400T5 PO; -DAPA10TA PO; -OXC5T PO
[2021-08-30] MEDS ORDERED: ATROPINE INJ 0.4 MG/ML SDV IV PRN (19:15)
--- NOTE | 2021-08-30 19:17 | ED Cardiac General ---
History of Present Illness General Chief Complaint: Cardiac/General Problems Stated Complaint: POSS SEIZURE Nursing Triage Note: PT BROUGHT IN BY [facility] FROM [facility] FOR SYNCOPLE EPISODE. PT WAS IN ROOM WITH ORACLE DATABASE ADMINISTRATOR WHEN HE PASSED OUT. PT STATES HE GOT DIZZY THEN WENT UNRESPONSIVE. PER PATROL LADY PT WAS SHAKING EXTREMITIES. PER EMS PT WENT PULSELESS AND ASYTOLE FOR APPROX 20 SECONDS, WITH AGONAL RESPIRATIONS. FASHION MODEL DID A PRECORDIAL THUMP AND RHYTHM/PULSE RESUMED. PT IS ALERT AND ORIENTED ON ARRIVAL TO ED. HR 38. Source: patient Exam Limitations: no limitations History of Present Illness Date Seen by Provider: Aug 30, 2021 Time Seen by Provider: 18:57 Initial Comments 86-year-old male with past medical history of CAD, A. fib on Eliquis, CHF, diabetes, hypertension coming in via EMS from his rehab halfway due to syncopal episode. Happened 1 hour ago in which he was sitting on his bed with the OR[employer]LE DATABASE ADMINISTRATOR, passed out and laid back on the bed. Went unresponsive so they called EMS. On EMS arrival he had another episode, and he was on the monitor, went pulseless for roughly 20 seconds with asystole. Had agonal respirations at that time. We did a precordial thump and his rhythm and pulse resumed with a rate in the 30s to 40s. Patient is alert and oriented currently, and says he feels back to his baseline. Denies any chest pain, shortness of breath, abdominal pain, nausea, vomiting, diarrhea, dizziness, headache, focal weakness or numbness, or any other concerns. Allergies and Home Medications Allergies Coded Allergies: No Known Drug Allergies (Unverified , 02/26/14) Patient Home Medication List Home Medication List Reviewed: Yes Amiodarone HCl (Amiodarone HCl) 200 Mg Tablet, 400 MG PO BID Prescribed by: ZARA WATKINS on 08/09/21 1233 Apixaban (Eliquis) 5 Mg Tablet, 5 MG PO BID, (Reported) Entered as Reported by: ELBA GALLOWAY on 08/03/21 1019 Atorvastatin Calcium (Atorvastatin Calcium) 80 Mg Tablet, 80 MG PO HS, (Reported) Entered as Reported by: ELBA GALLOWAY on 08/03/21 1019 Clopidogrel Bisulfate (Clopidogrel) 75 Mg Tablet, 75 MG PO DAILY, (Reported) Entered as Reported by: ELBA GALLOWAY on 08/03/21 1019 Diltiazem HCl (Diltiazem 24Hr ER) 120 Mg Cap.er.24h, 120 MG PO DAILY Prescribed by: ZARA WATKINS on 08/09/21 1233 Dulaglutide (Trulicity) 1.5 Mg/0.5 Ml Pen.injctr, 1.5 MG IJ WEEK, (Reported) Entered as Reported by: ELBA GALLOWAY on 08/03/21 1019 Duloxetine HCl (Duloxetine HCl) 30 Mg Capsule.dr, 30 MG PO BID, (Reported) Entered as Reported by: ELBA GALLOWAY on 08/03/21 1019 Furosemide (Furosemide) 40 Mg Tablet, 80 MG PO DAILY, (Reported) Entered as Reported by: CLINTON ARGUETA on 03/12/20 1225 Gabapentin (Gabapentin) 600 Mg Tablet, 600 MG PO TID, (Reported) Entered as Reported by: ELBA GALLOWAY on 08/03/21 1019 Metolazone (Metolazone) 5 Mg Tablet, 5 MG PO DAILY, (Reported) Entered as Reported by: CLINTON ARGUETA on 03/12/20 1225 Potassium Chloride (Potassium Chloride) 20 Meq Tab.er.prt, 20 MEQ PO DAILY, (Reported) Entered as Reported by: ELBA GALLOWAY on 08/03/21 1019 Review of Systems Review of Systems Constitutional: No chills, No fever EENTM: No Blurred Vision Respiratory: Denies Cough Cardiovascular: Denies Chest Pain; Syncope Gastrointestinal: Denies Abdominal Pain, Denies Diarrhea, Denies Nausea, Denies Vomiting Genitourinary: No Symptoms Reported Musculoskeletal: no symptoms reported Skin: no symptoms reported Psychiatric/Neurological: No Symptoms Reported Endocrine: No Symptoms Reported Hematologic/Lymphatic: No Symptoms Reported All Other Systems Reviewed Negative Unless Noted: Yes Past Tzyfyui-Cyaeoy-Zlhajs Hx Patient Social History Tobacco Use?: No Use of E-Cig and/or Vaping dev: No Substance use?: No Alcohol Use?: No Pt feels they are or have been: No Immunizations Up To Date Tetanus Booster (TDap): Unknown Seasonal Allergies Seasonal Allergies: No Past Medical History Surgery/Hospitalization HX: HX, STROKE AND CA Surgeries: No Tonsillectomy Respiratory: Yes Pneumonia, COPD Currently Using CPAP: Yes Cardiac: Yes Coronary Artery Disease, High Cholesterol, Hypertension Neurological: Yes Neuropathy Reproductive Disorders: No Sexually Transmitted Disease: No HIV/AIDS: No Genitourinary: No Gastrointestinal: No Musculoskeletal: Yes Degenerate Disk Disease, Arthritis Endocrine: Yes (TYPE 2 DM) Diabetes, Insulin dep Loss of Vision: Denies Hearing Impairment: Denies Cancer: No Psychosocial: No Integumentary: No Blood Disorders: No Adverse Reaction/Blood Tranf: No Family Medical History Coronary thrombosis 19 FATHER Diabetes mellitus G8 BROTHER FH: lung cancer 19 MOTHER (MOTHER FROM LUNG CA) Hypercholesterolemia 19 FATHER Myocardial infarction 19 FATHER ( FROM CA) Heart Disease, Cancer, Diabetes, Hypertension Physical Exam Vital Signs Vital Signs - First Documented 08/30/21 18:56 Pulse 38 Resp 14 B/P (MAP) 132/60 (84) Pulse Ox 96 O2 Delivery Room Air Capillary Refill : Less Than 3 Seconds Height, Weight, BMI Height: 5'11.00" Weight: 358lbs. 1.0oz. 162.853860yc; 39.00 BMI Method: General Appearance: No Apparent Distress, WD/WN HEENT: PERRL/EOMI, Normal ENT Inspection, Pharynx Normal Neck: Full Range of Motion, Normal Inspection, Non Tender, Supple Respiratory: Chest Non Tender, Lungs Clear, Normal Breath Sounds, No Accessory Muscle Use, No Respiratory Distress Cardiovascular: No Edema, Normal Peripheral Pulses, Bradycardia Gastrointestinal: Normal Bowel Sounds, Non Tender, Soft; No Distended, No Guarding Extremity: Normal Capillary Refill, Normal Inspection, Normal Range of Motion, Non Tender, No Calf Tenderness, No Pedal Edema Neurologic/Psychiatric: Alert, Oriented x3, No Motor/Sensory Deficits, Normal Mood/Affect, curb supervisor II-XII Norm as Tested Skin: Normal Color, Warm/Dry Lymphatic: No Adenopathy Procedures/Interventions Date of ETT Placement: Dec 12, 2019 Progress/Results/Core Measures Results/Orders Lab Results Laboratory Tests Test 08/30/21 19:05 Range/Units White Blood Count 9.9 4.3-11.0 10^3/uL Red Blood Count 4.25 L 4.30-5.52 10^6/uL Hemoglobin 12.1 L 13.3-17.7 g/dL Hematocrit 38 L 40-54 % Mean Corpuscular Volume 90 80-99 fL Mean Corpuscular Hemoglobin 29 25-34 pg Mean Corpuscular Hemoglobin Concent 32 32-36 g/dL Red Cell Distribution Width 14.8 H 10.0-14.5 % Platelet Count 308 130-400 10^3/uL Mean Platelet Volume 10.8 9.0-12.2 fL Immature Granulocyte % (Auto) 0 % Neutrophils (%) (Auto) 59 42-75 % Lymphocytes (%) (Auto) 26 12-44 % Monocytes (%) (Auto) 11 0-12 % Eosinophils (%) (Auto) 3 0-10 % Basophils (%) (Auto) 1 0-10 % Neutrophils # (Auto) 5.8 1.8-7.8 10^3/uL Lymphocytes # (Auto) 2.6 1.0-4.0 10^3/uL Monocytes # (Auto) 1.1 H 0.0-1.0 10^3/uL Eosinophils # (Auto) 0.3 0.0-0.3 10^3/uL Basophils # (Auto) 0.1 0.0-0.1 10^3/uL Immature Granulocyte # (Auto) 0.0 0.0-0.1 10^3/uL Prothrombin Time 13.2 12.2-14.7 SEC INR Comment 1.0 0.8-1.4 Activated Partial Thromboplast Time 31 24-35 SEC Sodium Level 140 135-145 MMOL/L Potassium Level 2.9 L 3.6-5.0 MMOL/L Chloride Level 94 L 98-107 MMOL/L Carbon Dioxide Level 28 21-32 MMOL/L Anion Gap 18 H 5-14 MMOL/L Blood Urea Nitrogen 49 H 7-18 MG/DL Creatinine 2.13 H 0.60-1.30 MG/DL Estimat Glomerular Filtration Rate 36 BUN/Creatinine Ratio 23 Glucose Level 223 H 70-105 MG/DL Calcium Level 9.0 8.5-10.1 MG/DL Corrected Calcium 9.4 8.5-10.1 MG/DL Magnesium Level 2.4 1.6-2.4 MG/DL Total Bilirubin 0.3 0.1-1.0 MG/DL Aspartate Amino Transf (AST/SGOT) 19 5-34 U/L Alanine Aminotransferase (ALT/SGPT) 19 0-55 U/L Alkaline Phosphatase 91 40-136 U/L Troponin I < 0.028 <0.028 NG/ML B-Type Natriuretic Peptide 76.9 <100.0 PG/ML Total Protein 7.4 6.4-8.2 GM/DL Albumin 3.5 3.2-4.5 GM/DL My Orders Orders - ILIANA FLANNERY MD Cbc With Automated Diff (08/30/21 19:09) Magnesium (08/30/21 19:09) Chest 1 View, Ap/Pa Only (08/30/21 19:09) Ekg Tracing (08/30/21 19:09) Comprehensive Metabolic Panel (08/30/21 19:09) Protime With Inr (08/30/21 19:09) Partial Thromboplastin Time (08/30/21 19:09) O2 (08/30/21 19:09) Monitor-Rhythm Ecg Trace Only (08/30/21 19:09) Ed Iv/Invasive Line Start (08/30/21 19:09) Bnp [place] (08/30/21 19:09) Troponin I Chary (08/30/21 19:09) Atropine Injection (Atropine Injection) (08/30/21 19:15) Potassium Cl 10meq/50ml Ivpb (Kcl 10 Meq (08/30/21 19:54) Potassium Chloride (Tablet) (K Dur Table (08/30/21 20:00) Ed Admission (Communication) (08/30/21 19:57) Vital Signs/I&O 08/30/21 18:56 Pulse 38 Resp 14 B/P (MAP) 132/60 (84) Pulse Ox 96 O2 Delivery Room Air Blood Pressure Mean: 84 Progress Progress Note : Progress Note 56-year-old male with above history coming in due to bradycardia and syncope. He was bradycardic but hypertensive on arrival here. He is alert and oriented and at his mental baseline. I am concerned with his history however. He is on a calcium channel cathleen which could be making his bradycardia worse. We will have atropine at the bedside in case he becomes symptomatic again. Basic labs including cardiac biomarkers ordered an IV was placed. Troponin is negative, BNP normal, potassium low at 2.9, normal magnesium, creatinine around 2. EKG with sinus bradycardia and no signs of acute ischemia. I called and discussed the case with Dr. Guzmán the telecommunications switch technician on-call. He will like the patient to the admitted for telemetry and washout of his calcium channel cathleen for a couple days. If he continues to be bradycardic he may need a pacemaker. I called and discussed the case with Dr. Inman who admit the patient to the ICU or further evaluation management Initial ECG Impression Date: Aug 30, 2021 Initial ECG Impression Time: 18:55 Initial ECG Rate: 38 Initial ECG Rhythm: S.Ry Comment Wide QRS with what appears to be a right bundle branch pattern, there are P waves before every QRS, LVH, no significant ST elevation, compared to prior EKG, he is now bradycardic Diagnostic Imaging Diagonstic Imaging: Xray Plain Films/CT/US/NM/MRI: chest Comments [facility]. [place], [place] NAME: MEAGAN GUEVARA [facility] REC#: [id number] PT STATUS: REG ER : 1965 PHYSICIAN: ILIANA FLANNERY MD ADMIT DATE: 08/30/21/ER Draft Date of Exam:08/30/21 CHEST 1 VIEW, AP/PA ONLY EXAMINATION: Chest 1 view HISTORY: Chest pain COMPARISON: 08/03/2021 FINDINGS: The lungs are clear without edema or pneumonia. No pleural effusion or pneumothorax. Heart size is normal for portable technique. IMPRESSION: 1. Clear lungs. Dictated on workstation # [id number] Dict: 08/30/211950 Trans: 08/30/211955 [facility] [id number] Interpreted by: ANTONETTE DE GUZMAN MD Electronically signed by: Departure Impression Primary Impression: Syncope Qualified Codes: R55 - Syncope and collapse Additional Impressions: Hypokalemia Symptomatic bradycardia Disposition: ADMITTED INPATIENT Condition: Stable Admissions Decision to Admit Reason: Admit from ER (General) Decision to Admit/Date: Aug 30, 2021 Time/Decision to Admit Time: 19:50 Departure-Patient Inst. Referrals: [facility] (PCP) Primary Care Physician NO,LOCAL PHYSICIAN (Family) Primary Care Physician ILIANA FLANNERY MD Aug 30, 2021 19:16
[2021-08-30 19:18] LABS: BASOPHILS # (AUTO) 0.1 10^3/uL (0.0-0.1); BASOPHILS % (AUTO) 1 % (0-10); EOSINOPHILS # (AUTO) 0.3 10^3/uL (0.0-0.3); EOSINOPHILS % (AUTO) 3 % (0-10); HEMATOCRIT 38 % (40-54); HEMOGLOBIN 12.1 g/dL (13.3-17.7); LYMPHOCYTES # (AUTO) 2.6 10^3/uL (1.0-4.0); LYMPHOCYTES % (AUTO) 26 % (12-44); MEAN CORPUSCULAR HEMOGLOBIN 29 pg (25-34); MEAN CORPUSCULAR HGB CONC 32 g/dL (32-36); MEAN CORPUSCULAR VOLUME 90 fL (80-99); MEAN PLATELET VOLUME 10.8 fL (9.0-12.2); MONOCYTES # (AUTO) 1.1 10^3/uL (0.0-1.0); MONOCYTES % (AUTO) 11 % (0-12); NEUTROPHILS # (AUTO) 5.8 10^3/uL (1.8-7.8); NEUTROPHILS % (AUTO) 59 % (42-75); PLATELET COUNT 308 10^3/uL (130-400); WHITE BLOOD COUNT 9.9 10^3/uL (4.3-11.0)
[2021-08-30 19:25] LABS: PROTHROMBIN TIME PATIENT 13.2 SEC (12.2-14.7)
[2021-08-30 19:43] LABS: ALBUMIN 3.5 GM/DL (3.2-4.5); BILIRUBIN,TOTAL 0.3 MG/DL (0.1-1.0); CREATININE SERUM 2.13 MG/DL (0.60-1.30); MAGNESIUM 2.4 MG/DL (1.6-2.4); POTASSIUM 2.9 MMOL/L (3.6-5.0); TOTAL PROTEIN 7.4 GM/DL (6.4-8.2)
[2021-08-30] MEDS ORDERED: POTASSIUM CL 10MEQ/50ML IVPB 50 ML IV STA (19:54)
--- NOTE | 2021-08-30 19:56 | Diagnostic Imaging Report ---
EXAMINATION: Chest 1 view HISTORY: Chest pain COMPARISON: 08/03/2021 FINDINGS: The lungs are clear without edema or pneumonia. No pleural effusion or pneumothorax. Heart size is normal for portable technique. IMPRESSION: 1. Clear lungs. Dictated by: Dictated on workstation # [id number]
[2021-08-30] MEDS ORDERED: KCL 20 MEQ TAB (K-DUR) PO ONE (20:00)
[2021-08-30] MEDS ORDERED: NS IV 1000 ML 1,000 ML ONE (20:15)
--- NOTE | 2021-08-30 20:44 | Tele-ICU Progress Note ---
Subjective Date Seen by a Provider: Aug 30, 2021 Time Seen by a Provider: 19:59 Subjective/Events-last exam This virtual visit was conducted using real time audio/video. Thank you for asking us to see this patient for symptomatic bradycardia, syncope and 20 second asystole at rehab center. PMH: CAD, Afib, CHF, DM2, HTN. SH: smoking history: pt denies FH: Non-contributory ROS: as in HPI. PE: HR 38 sinus. O2 sat 96% on RA. HEENT: No obvious masses, adenopathy or JVD. Chest: clear to auscultation. CV: RRR S1 S2 No murmur or added sounds. Abd: Non-tender. Bowel sounds Y. : Unremarkable. Reddy N. 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 No obvious focal findings. Extremities: No edema. Capillary refill < 3 seconds. Skin: unremarkable. Results: Elevated BUN 49, Creat 2.13. Decreased Hb 12.1, K 2.9. CXR: clear. Available chart/ vitals / labs / images reviewed. Video assessment done using teleICU camera, rest of exam as per RN. A/P: Symptomatic bradycardia, possibly Ca channel cathleen. Diltiazem held, pt to be monitored. Critical Care: critically ill patient. Cont. IVF, PRN Atropine. Replace K. Discussed with NIXON Soto. Asked RN to reach out to eICU if any questions or concerns later. Time spent with patient/coordination of care with other health professionals (mins): 25 Sepsis Event Evaluation Height, Weight, BMI Height: 5'11.00" Weight: 358lbs. 1.0oz. 162.520410cy; 39.00 BMI Method: Exam Exam Patient acknowledged, consented, and participated in this virtual visit which was conducted using real time audio/video Vital Signs Date Time Temp Pulse Resp B/P (MAP) Pulse Ox O2 Delivery O2 Flow Rate FiO2 08/30/21 18:56 38 14 132/60 (84) 96 Room Air Height & Weight Height: 5'11.00" Weight: 358lbs. 1.0oz. 162.034561yd; 39.00 BMI Method: General Appearance: No Apparent Distress, WD/WN HEENT: PERRL/EOMI, Normal ENT Inspection, Pharynx Normal Neck: Full Range of Motion, Normal Inspection, Non Tender, Supple Respiratory: Chest Non Tender, Lungs Clear, Normal Breath Sounds, No Accessory Muscle Use, No Respiratory Distress Cardiovascular: No Edema, Normal Peripheral Pulses, Bradycardia Capillary Refill: Less Than 3 Seconds Extremity: Normal Capillary Refill, Normal Inspection, Normal Range of Motion, Non Tender, No Calf Tenderness, No Pedal Edema Neurologic/Psychiatric: Alert, Oriented x3, No Motor/Sensory Deficits, Normal Mood/Affect, advertising consultant II-XII Norm as Tested Skin: Normal Color, Warm/Dry Lymphatic: No Adenopathy Results Lab Laboratory Tests 08/30/21 19:05 Assessment/Plan Assessment/Plan See free text. Critical Care: Critically Ill Patient JULI YOU MD Aug 30, 2021 20:44
[2021-08-30] MEDS ORDERED: MELATONIN 3 MG TABLET PO PRN (21:45)
[2021-08-30] MEDS ORDERED: diphenhydrAMINE 25 MG TAB (BENADRYL) PO PRN (21:45)
[2021-08-30] MEDS ORDERED: diphenhydrAMINE 50 MG/ML INJ (BENADRYL) IVP PRN (21:45)
[2021-08-30] MEDS ORDERED: MILK OF MAGNESIA 400 MG/5 ML 30 ML UDC PO PRN (21:45)
[2021-08-30] MEDS ORDERED: polyethylene glycoL POWDER 17 GM (MIRALAX) PACK PO PRN (21:45)
[2021-08-30] MEDS ORDERED: LACTULOSE SYRUP 10GM/15ML (ENULOSE) 30ML UDC PO PRN (21:45)
[2021-08-30] MEDS ORDERED: ONDANSETRON 4 MG (ZOFRAN) ORAL DISSOLVE TAB PO PRN (21:45)
[2021-08-30] MEDS ORDERED: CALCIUM CARBONATE 500 MG (TUMS) TAB.CHEW PO PRN (21:45)
[2021-08-30] MEDS ORDERED: ANTACID SUSP 30 ML UDC (MYLANTA) PO PRN (21:45)
[2021-08-30] MEDS ORDERED: morphine INJ 4 MG/ML 1 ML (VIAL/SYRINGE) IV PRN (21:45)
[2021-08-30] MEDS ORDERED: ONDANSETRON 4 MG/2 ML (SDV) Z0FRAN IV PRN (21:45)
[2021-08-30] MEDS ORDERED: ACETAMINOPHEN 325 MG TABLET PO PRN (21:45)
[2021-08-30] MEDS ORDERED: ALPRAZolam 0.5 MG (XANAX) TAB PO PRN (21:45)
[2021-08-30] MEDS ORDERED: POTASSIUM CHLORIDE INJ 10 MEQ in NS IV 1000 ML 1,000 ML IV SCH (21:45)
[2021-08-30] MEDS ORDERED: BISACODYL 10 MG SUPP (DULCOLAX) PR PRN (21:45)
[2021-08-30 21:57] VITALS: BP 116/74
[2021-08-30 22:00] VITALS: BP 124/77
[2021-08-30 23:00] VITALS: BP 117/68
[2021-08-30 23:05] VITALS: BP 116/74
[2021-08-30] MEDS ORDERED: RT-ALBUTEROL/IPRATROPIUM 3 ML (DUONEB) VIAL INH PRN (23:30)
[2021-08-31] VITALS (13 sets, daily range): BP systolic 117–158; BP diastolic 67–127
[2021-08-31 04:44] LABS: BASOPHILS # (AUTO) 0.1 10^3/uL (0.0-0.1); BASOPHILS % (AUTO) 1 % (0-10); EOSINOPHILS # (AUTO) 0.3 10^3/uL (0.0-0.3); EOSINOPHILS % (AUTO) 4 % (0-10); HEMATOCRIT 39 % (40-54); HEMOGLOBIN 12.1 g/dL (13.3-17.7); LYMPHOCYTES # (AUTO) 1.6 10^3/uL (1.0-4.0); LYMPHOCYTES % (AUTO) 22 % (12-44); MEAN CORPUSCULAR HEMOGLOBIN 29 pg (25-34); MEAN CORPUSCULAR HGB CONC 31 g/dL (32-36); MEAN CORPUSCULAR VOLUME 91 fL (80-99); MEAN PLATELET VOLUME 11.1 fL (9.0-12.2); MONOCYTES # (AUTO) 0.7 10^3/uL (0.0-1.0); MONOCYTES % (AUTO) 9 % (0-12); NEUTROPHILS # (AUTO) 4.8 10^3/uL (1.8-7.8); NEUTROPHILS % (AUTO) 65 % (42-75); PLATELET COUNT 272 10^3/uL (130-400); WHITE BLOOD COUNT 7.4 10^3/uL (4.3-11.0)
[2021-08-31 04:51] LABS: ALBUMIN 3.4 GM/DL (3.2-4.5)
[2021-08-31 04:52] LABS: CALCIUM 9.2 MG/DL (8.5-10.1)
[2021-08-31 04:54] LABS: TOTAL PROTEIN 7.3 GM/DL (6.4-8.2)
[2021-08-31 04:55] LABS: BILIRUBIN,TOTAL 0.3 MG/DL (0.1-1.0)
[2021-08-31 04:57] LABS: CREATININE SERUM 1.9 MG/DL (0.60-1.30)
[2021-08-31] MEDS: inSUlin ASPART (NovoLOG) 1 UNIT/0.01 ML (CHARGE PER UNIT) SC SCH ×4 (06:49→21:26)
[2021-08-31] MEDS ORDERED: KCL 20 MEQ TAB (K-DUR) PO ONE (08:00)
[2021-08-31] MEDS: GABAPENTIN 600 MG (NEURONTIN) TAB PO SCH ×3 (08:06→21:25)
[2021-08-31] MEDS: APIXABAN 5 MG (ELIQUIS) TABLET PO SCH ×2 (08:06→21:25)
[2021-08-31] MEDS: SENNOSIDES 8.6 MG (SENOKOT) TAB PO SCH ×2 (08:06→21:25)
[2021-08-31] MEDS: DOCUSATE SODIUM 100 MG (COLACE) CAP PO SCH ×2 (08:06→21:25)
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
[2021-08-31] MEDS ORDERED: CLOPIDOGREL 75 MG (PLAVIX) TABLET PO SCH (09:00)
--- NOTE | 2021-08-31 10:07 | Tele-ICU Progress Note ---
Subjective Date Seen by a Provider: Aug 31, 2021 Time Seen by a Provider: 10:07 Subjective/Events-last exam (Tele-ICU Physician , Progress Note ) Available chart/ vitals / labs / Images reviewed Video assessment done using teleICU camera, rest of exam as per RN Discussed with RN , EXAM PER RN Events overnight : Afebrile FiO2 - 3L ->RA I/O = neg Drips: Pressors: , hemodynamically stable Consultants: osmel Hospital course: (08/30) 56y/M in with syncope , symp bradycardia. A/P Syncope - witnessed, ? 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 Discussed with RN to reach out if any questions or concerns A total of 31 minutes of critical care time was devoted to this patient today, required to treat and/or prevent further deterioration of critical care condition ( as above) . Sepsis Event Evaluation Height, Weight, BMI Height: 5'11.00" Weight: 358lbs. 1.0oz. 162.971072ub; 46.14 BMI Method: Exam Exam Patient acknowledged, consented, and participated in this virtual visit which was conducted using real time audio/video Vital Signs Date Time Temp Pulse Resp B/P (MAP) Pulse Ox O2 Delivery O2 Flow Rate FiO2 08/31/21 07:30 36.3 08/31/21 06:00 94 Room Air 08/31/21 05:00 61 11 142/80 (100) 99 Nasal Cannula 3.00 08/31/21 04:00 65 14 98 Nasal Cannula 3.00 08/31/21 03:00 64 14 100 Nasal Cannula 3.00 08/31/21 02:00 61 13 118/68 (85) 96 Nasal Cannula 3.00 08/31/21 02:00 94 Room Air 08/31/21 01:00 62 13 117/67 (84) 99 Nasal Cannula 3.00 08/31/21 00:23 66 08/31/21 00:13 36.8 Nasal Cannula 3.00 08/31/21 00:00 63 10 134/73 (93) 99 Nasal Cannula 3.00 08/30/21 23:05 36.4 71 94 21 08/30/21 23:00 66 14 117/68 (84) 93 Nasal Cannula 3.00 08/30/21 22:10 69 08/30/21 22:00 68 13 124/77 (93) 92 Room Air 08/30/21 21:58 94 Room Air 08/30/21 21:57 36.4 71 16 116/74 (88) 94 Room Air 08/30/21 18:56 38 14 132/60 (84) 96 Room Air I & O 08/31/21 07:00 Intake Total 1220 ml Output Total 1775 ml Balance -555 ml Height & Weight Height: 5'11.00" Weight: 358lbs. 1.0oz. 162.240688wd; 46.14 BMI Method: General Appearance: No Apparent Distress, WD/WN HEENT: PERRL/EOMI, Normal ENT Inspection, Pharynx Normal Neck: Full Range of Motion, Normal Inspection, Non Tender, Supple Respiratory: Chest Non Tender, Lungs Clear, Normal Breath Sounds, No Accessory Muscle Use, No Respiratory Distress Cardiovascular: No Edema, Normal Peripheral Pulses, Bradycardia Capillary Refill: Less Than 3 Seconds Extremity: Normal Capillary Refill, Normal Inspection, Normal Range of Motion, Non Tender, No Calf Tenderness, No Pedal Edema Neurologic/Psychiatric: Alert, Oriented x3, No Motor/Sensory Deficits, Normal Mood/Affect, manager account management II-XII Norm as Tested Skin: Normal Color, Warm/Dry Lymphatic: No Adenopathy Results Lab Laboratory Tests 08/30/21 19:05 08/31/21 04:11 Assessment/Plan Assessment/Plan . JUSTUS ROBBINS MD Aug 31, 2021 10:07
--- NOTE | 2021-08-31 10:33 | History & Physical-Hospitalist ---
FÉLIX CAMERON 08/31/21 1033: History of Present Illness HPI/Chief Complaint Chief Complaint: Syncope, Bradycardia History of present illness: This is a 56-year-old white male who was brought to the ER from [facility] with bradycardia and syncopal episodes. History of CAD, A. fib on Eliquis, CHF, diabetes, hypertension, also on Amiodaorne and Diltiazem. Patient is completing rehab for his fractured right foot. He was sitting on the bed with his ASSET RECOVERY SPECIALIST then had a syncopal episode and was unresponsive. When EMS arrived, patient had another episode with asystole for 20 seconds, also had agonal respirations. Business Office Coordinator did precordial thump and patient resumed to bradycardic rhythm at heart rate 38. Workup included EKG which showed sinus bradycardia, no acute ischemia. Troponin negative, BNP normal, hypokalemia at 2.9, normal magnesium, creatinine at 2.13. Cardiology is consulted. Patient was sitting up in bed when I visited and reported that he is feeling much better this morning. Source: patient Exam Limitations: no limitations Date Seen 08/31/21 Time Seen by a Provider: 08:16 Attending Physician Geovanna Inman DO [facility] Referring Physician Date of Admission Aug 30, 2021 at 19:57 Home Medications & Allergies Home Medications Reviewed patient Home Medication Reconciliation performed by pharmacy medication reconciliations technician's helper and/or nursing. Patients Allergies have been reviewed. Allergies Allergies Coded Allergies No Known Drug Allergies (Unverified02/26/14) Past [id number] Hx Patient Social History Tobacco Use?: No Smoking Status: Former Smoker Smokeless Tobacco Frequency: Never a User Use of E-Cig and/or Vaping dev: No Substance use?: No Alcohol Use?: No Pt feels they are or have been: No Immunizations Up To Date Tetanus Booster (TDap): Unknown Hepatitis A: No Hepatitis B: No Seasonal Allergies Seasonal Allergies: No Current Status Advance Directives: No Primary Language: Maldivian Preferred Spoken Language: Maldivian Past Medical History Surgeries: Tonsillectomy Pneumonia, COPD Currently Using CPAP: Yes Coronary Artery Disease, High Cholesterol, Hypertension Neuropathy Sexually Transmitted Disease: No HIV/AIDS: No Degenerate Disk Disease, Arthritis Diabetes, Insulin dep Loss of Vision: Denies Hearing Impairment: Denies Blood Disorders: No Adverse Reaction/Blood Tranf: No PMHx: CVA CHF HTN DMII Family Medical History Coronary thrombosis 19 FATHER Diabetes mellitus G8 BROTHER FH: lung cancer 19 MOTHER (MOTHER FROM [place]) Hypercholesterolemia 19 FATHER Myocardial infarction 19 FATHER ( FROM [place]) Heart Disease, Cancer, Diabetes, Hypertension Review of Systems Constitutional: No chills, No diaphoresis; dizziness; No fever, No malaise EENTM: No hearing loss, No blurred vision Respiratory: No cough, No dyspnea on exertion, No short of breath Cardiovascular: No chest pain, No edema, No palpitations; syncope Gastrointestinal: No abdominal pain, No diarrhea, No nausea, No vomiting Genitourinary: No decreased output, No discharge, No dysuria, No frequency Musculoskeletal: No back pain, No joint pain Skin: No change in color, No dryness Psychiatric/Neurological: Denies Headache, Denies Numbness, Denies Paresthesia Physical Exam Physical Exam Vital Signs Vital Signs - First Documented 08/30/21 08/30/21 08/30/21 08/30/21 18:56 21:57 23:00 23:05 Temp 36.4 Pulse 38 Resp 14 B/P (MAP) 132/60 (84) Pulse Ox 96 O2 Delivery Room Air O2 Flow Rate 3.00 FiO2 21 Capillary Refill : Less Than 3 Seconds Height, Weight, BMI Height: 5'11.00" Weight: 358lbs. 1.0oz. [id number]; 46.14 BMI Method: General Appearance: No Apparent Distress, WD/WN HEENT: PERRL/EOMI Neck: Full Range of Motion, Normal Inspection, Non Tender, Supple Respiratory: Chest Non Tender, Lungs Clear, Normal Breath Sounds, No Accessory Muscle Use, No Respiratory Distress Cardiovascular: Regular Rate, Rhythm, No Edema, No Murmur Gastrointestinal: Normal Bowel Sounds, No Organomegaly, No Pulsatile Mass, Non Tender, Soft Extremity: Other (RIght foot in a boot) Neurologic/Psychiatric: Alert, Oriented x3, No Motor/Sensory Deficits, Normal Mood/Affect Skin: Normal Color, Warm/Dry Results Results/Procedures Labs Laboratory Tests 08/30/21 19:05 08/31/21 04:11 Patient resulted labs reviewed. Assessment/Plan Admission Diagnosis Syncope Bradycardia Assessment and Plan Assessment: Syncope Bradycardia Atrial fibrillation on eloquis Hypertension Plan: Consult cardiology Telemetry Discontinue diltiazem and monitor GEOVANNA INMAN DO 09/01/21 0527: History of Present Illness HPI/Chief Complaint CC: Syncopal episode due to bradycardia HPI: 56 yr old WM known to me from prior hospital stay. He came from [facility] after syncopal and unresponsive episode found to have bradycardia. Cardizem and Amiodarone were held. Maintain on anticoagulation. Cardiology will be consulted. Currently he is doing well and having no pain. Source: patient Exam Limitations: no limitations Past Rovaoud-Nbzrwu-Llvewb Hx Patient Social History Marrital Status: single Employed/Student: unemployed Smoking Status: Current Everyday Smoker Past Medical History Pneumonia, COPD Atrial Fibrillation, Cardiomyopathy, Coronary Artery Disease, High Cholesterol, Hypertension Family Medical History Coronary thrombosis 19 FATHER Diabetes mellitus G8 BROTHER FH: lung cancer 19 MOTHER (MOTHER FROM [place]) Hypercholesterolemia 19 FATHER Myocardial infarction 19 FATHER ( FROM [place]) Review of Systems Constitutional: see HPI, weakness EENTM: no symptoms reported Respiratory: no symptoms reported Cardiovascular: no symptoms reported Gastrointestinal: no symptoms reported Genitourinary: no symptoms reported Musculoskeletal: no symptoms reported Skin: no symptoms reported Psychiatric/Neurological: No Symptoms Reported Physical Exam Physical Exam General Appearance: No Apparent Distress, Chronically ill, Obese Eyes: Right Eye Normal Inspection, Right Eye PERRL HEENT: PERRL/EOMI, Normal ENT Inspection, Pharynx Normal, Moist Mucous Membranes Neck: Full Range of Motion, Normal Inspection, Non Tender Respiratory: Chest Non Tender, Lungs Clear, Normal Breath Sounds, No Accessory Muscle Use, No Respiratory Distress Cardiovascular: Regular Rate, Rhythm, No Edema, No Gallop, No JVD, No Murmur, Normal Peripheral Pulses Gastrointestinal: Normal Bowel Sounds, No Organomegaly, No Pulsatile Mass, Non Tender, Soft Back: Normal Inspection, No CVA Tenderness, No Vertebral Tenderness Extremity: Normal Capillary Refill, Normal Inspection, Normal Range of Motion, Non Tender, No Calf Tenderness, No Pedal Edema Neurologic/Psychiatric: Alert, Oriented x3, No Motor/Sensory Deficits, Normal Mood/Affect Skin: Normal Color, Warm/Dry Lymphatic: No Adenopathy Assessment/Plan Admission Diagnosis Assessment: Symptomatic bradycardia Syncopal and unresponsive episode Atrial fibrillation prior ablation Plan: Oral anticoagulants Holding amiodarone and diltiazem Admission Status: Inpatient Order (span 2 midnights) Reason for Inpatient Admission: Symptomatic bradycardia with syncope Supervisory-Addendum Brief Verification & Attestation Participated in pt care: history, MDM, physical Personally performed: exam, history, MDM, supervision of care Care discussed with: Medical Student Procedures: n/a Results interpretation: Verified all documentation Verification and Attestation of Medical Student E/M Service A medical student performed and documented this service in my presence. I reviewed and verified all information documented by the medical student and made modifications to such information, when appropriate. I personally performed the physical exam and medical decision making. Geovanna Inman, Sep 01, 2021,05:27 FÉLIX CAMERON Aug 31, 2021 10:33 GEOVANNA INMAN DO Sep 01, 2021 05:27
[2021-08-31] MEDS ORDERED: INSU100I29 SQ ×2 (10:57)
[2021-08-31] MEDS ORDERED: AMIO400T5 PO (10:57)
[2021-08-31] MEDS ORDERED: INSU100I14 SQ (10:57)
[2021-08-31] MEDS ORDERED: DILT-27 PO (10:57)
[2021-08-31] MEDS ORDERED: DAPA10TA PO (10:57)
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
[2021-09-01] VITALS (8 sets, daily range): BP systolic 118–179; BP diastolic 61–100
[2021-09-01 04:49] LABS: BASOPHILS # (AUTO) 0.1 10^3/uL (0.0-0.1); BASOPHILS % (AUTO) 1 % (0-10); EOSINOPHILS # (AUTO) 0.2 10^3/uL (0.0-0.3); EOSINOPHILS % (AUTO) 3 % (0-10); HEMATOCRIT 38 % (40-54); HEMOGLOBIN 11.7 g/dL (13.3-17.7); LYMPHOCYTES # (AUTO) 1.5 10^3/uL (1.0-4.0); LYMPHOCYTES % (AUTO) 20 % (12-44); MEAN CORPUSCULAR HEMOGLOBIN 28 pg (25-34); MEAN CORPUSCULAR HGB CONC 31 g/dL (32-36); MEAN CORPUSCULAR VOLUME 91 fL (80-99); MEAN PLATELET VOLUME 10.9 fL (9.0-12.2); MONOCYTES # (AUTO) 0.7 10^3/uL (0.0-1.0); MONOCYTES % (AUTO) 10 % (0-12); NEUTROPHILS # (AUTO) 4.6 10^3/uL (1.8-7.8); NEUTROPHILS % (AUTO) 65 % (42-75); PLATELET COUNT 269 10^3/uL (130-400); WHITE BLOOD COUNT 7.1 10^3/uL (4.3-11.0)
[2021-09-01 05:07] LABS: ALBUMIN 3.4 GM/DL (3.2-4.5)
[2021-09-01 05:09] LABS: CALCIUM 9.2 MG/DL (8.5-10.1)
[2021-09-01 05:10] LABS: TOTAL PROTEIN 7.3 GM/DL (6.4-8.2)
[2021-09-01 05:12] LABS: BILIRUBIN,TOTAL 0.5 MG/DL (0.1-1.0)
[2021-09-01 05:14] LABS: CREATININE SERUM 1.68 MG/DL (0.60-1.30)
[2021-09-01 05:17] LABS: MAGNESIUM 2.3 MG/DL (1.6-2.4)
[2021-09-01] MEDS: inSUlin ASPART (NovoLOG) 1 UNIT/0.01 ML (CHARGE PER UNIT) SC SCH ×2 (06:11→11:26)
--- NOTE | 2021-09-01 06:56 | Progress Note - Hospitalist ---
Subjective HPI/CC On Admission Date Seen by Provider: Sep 01, 2021 CC: Syncopal episode due to bradycardia HPI: 56 yr old WM known to me from prior hospital stay. He came from [facility] after syncopal and unresponsive episode found to have bradycardia. Cardizem and Amiodarone were held. Maintain on anticoagulation. Cardiology will be consulted. Currently he is doing well and having no pain. Objective Exam Vital Signs Vital Signs Date Time Temp Pulse Resp B/P (MAP) Pulse Ox O2 Delivery O2 Flow Rate FiO2 09/01/21 13:00 65 09/01/21 13:00 12 97 Nasal Cannula 2.00 09/01/21 12:00 36.7 09/01/21 10:00 131/96 (108) 08/30/21 23:05 21 Capillary Refill : Less Than 3 Seconds Results/Procedures Lab Laboratory Tests 09/01/21 04:00 Patient resulted labs reviewed. Assessment/Plan Critical Care Critically Ill Patient JAIROGAYATRI COREY Sep 01, 2021 06:56
[2021-09-01] MEDS ORDERED: NS IV SCH ×2 (07:15)
[2021-09-01] MEDS ORDERED: KCL IV SCH ×2 (07:15)
[2021-09-01] MEDS: POTASSIUM CL 10MEQ/50ML IVPB 50 ML IV SCH ×4 (07:27→10:48)
[2021-09-01] MEDS: APIXABAN 5 MG (ELIQUIS) TABLET PO SCH (08:06)
[2021-09-01] MEDS: GABAPENTIN 600 MG (NEURONTIN) TAB PO SCH (08:06)
[2021-09-01] MEDS: SENNOSIDES 8.6 MG (SENOKOT) TAB PO SCH (08:06)
[2021-09-01] MEDS: DOCUSATE SODIUM 100 MG (COLACE) CAP PO SCH (08:06)
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
[2021-09-01] MEDS ORDERED: LIDOCAINE 1% INJ 50 ML (XYLOCAINE) VIAL ONE (08:46)
[2021-09-01] MEDS ORDERED: NON-FORMULARY MEDICATION 1 EA EA (Dulaglutide (Trulicity) 1.5 MG) IJ SCH (10:30)
--- NOTE | 2021-09-01 10:47 | Progress Note - Cardiology ---
Cardiology SOAP Progress Note Subjective: No cp or palp or syncope or shortness of breath since admission Gen malaise and weakness that he had yesterday have resolved He feels well and wishes to go home. Refuses to stay in the hosp any longer Objective: I&O/Vital Signs 09/01/21 09/01/21 09/01/21 09/01/21 00:00 01:00 02:00 04:00 Pulse 68 63 63 64 Resp 10 11 12 B/P (MAP) 179/100 (126) 137/61 (86) 139/77 (97) Pulse Ox 88 97 96 O2 Delivery Nasal Cannula Nasal Cannula Nasal Cannula O2 Flow Rate 2.00 2.00 2.00 09/01/21 09/01/21 09/01/21 09/01/21 07:00 07:00 08:00 08:00 Temp 36.4 Pulse 77 72 Resp 23 B/P (MAP) 118/84 (95) Pulse Ox 96 94 O2 Delivery Nasal Cannula Room Air O2 Flow Rate 2.00 09/01/21 00:00 Intake Total 1600 ml Output Total 2100 ml Balance -500 ml Weight (Pounds): 358 Weight (Ounces): 1.0 Weight (Calculated Kilograms): 162.153239 Constitutional: AAO x 3, well-developed, well-nourished Respiratory: No accessory muscle use, No respiratory distress; chest expansion is symmetric, chest is bilaterally symmetric, lungs clear to auscultation Cardiovascular: regular rate-rhythm; No JVD; S1 and S2 Gastrointestional: No tender; soft, round, audible bowel sounds Extremities: no lower extremity edema bilateral Neurologic/Psychiatric: other (moves all extremities) Skin: other (walking boot to the right leg) Results/Procedures: Labs Laboratory Tests 08/31/21 11:42: Glucometer 185H 08/31/21 15:50: Glucometer 159H 08/31/21 21:07: Glucometer 211H 09/01/21 04:00: White Blood Count 7.1, Red Blood Count 4.13L, Hemoglobin 11.7L, Hematocrit 38L, Mean Corpuscular Volume 91, Mean Corpuscular Hemoglobin 28, Mean Corpuscular Hemoglobin Concent 31L, Red Cell Distribution Width 14.7H, Platelet Count 269, Mean Platelet Volume 10.9, Immature Granulocyte % (Auto) 0, Neutrophils (%) (Auto) 65, Lymphocytes (%) (Auto) 20, Monocytes (%) (Auto) 10, Eosinophils (%) (Auto) 3, Basophils (%) (Auto) 1, Neutrophils # (Auto) 4.6, Lymphocytes # (Auto) 1.5, Monocytes # (Auto) 0.7, Eosinophils # (Auto) 0.2, Basophils # (Auto) 0.1, Immature Granulocyte # (Auto) 0.0, Sodium Level 139, Potassium Level 3.0L, Chloride Level 96L, Carbon Dioxide Level 29, Anion Gap 14, Blood Urea Nitrogen 40H, Creatinine 1.68H, Estimat Glomerular Filtration Rate 47, BUN/Creatinine Ratio 24, Glucose Level 159H, Calcium Level 9.2, Corrected Calcium 9.7, Magnesium Level 2.3, Total Bilirubin 0.5, Aspartate Amino Transf (AST/SGOT) 19, Alanine Aminotransferase (ALT/SGPT) 25, Alkaline Phosphatase 88, Total Protein 7.3, Albumin 3.4 Laboratory Tests 08/30/21 19:05 08/31/21 04:11 09/01/21 04:00 A/P: Assessment: Syncope - witnessed, but rhythm undocumented - During transport to ER on 08/30/21, long asystolic pause was reported by EMS, but there is no documentation of that - no further episodes or episodes of bradycardia since stopping rate-controlling agents - ILR implanted on 09/01/21 Hypokalemia - Likely d/t chronic diuretic tx - no evidence of CHF - diuretics stopped PAF - cardioversion [place] [address] Storm - ablation in December [address] Storm - MAMADOU with electrical cardioversion on August 05, [address] Burgess Hypokalemia Acute on chronic renal failure - acute likely secondary to aggressive diuretics - chronic likely secondary to diabetic nephropathy H/o CHF and cardiomyopathy, resolved - Echocardiogram of November 2019 showed LVEF 15-20%. Mild MR. LA dilated. PASP 60- 65mmHg - Echocardiogram of September 01, 2020 showed LVEF 50-55%. LA is mod dilated. A bicuspid aortic valve morphology cannot be excluded. The leaflets are mildly thickened and mildly calcified - MAMADOU on 08/05/21: LVEF 50%, dilated atria, no ASD Mild coronary artery disease per cardiac catheterization done in December 2019 History of CVA, received thrombolytics, required rehabilitation Hypertension, controlled Hyperlipidemia Baseline abnormal EKG with right bundle branch block and left anterior fasc icular block Tobaccoism - advised to quit History of meth abuse - advised to continue to refrain H/O ETOH abuse - has been refraining Plan: * No further episodes of syncope, near syncope or bradycardia since cessation of all rate-lowering agents * He insists on going home. We advised implant of ILR - we discussed the procedure with him in detail - he is agreed. ILR placed * Correct hypokalemia * No evidence of decompensated CHF - continue to hold diuretics for now * Rate-lowering agents have been d/c'd * Advised to remain off drugs and alcohol * Questions answered in detail * Close outpt f/u advised HUNTER BERGERON MD FACP FAC CCDS Sep 01, 2021 10:47
[2021-09-01] MEDS ORDERED: inSUlin ASPART (NovoLOG) 1 UNIT/0.01 ML (CHARGE PER UNIT) SQ SCH (12:00)
[2021-09-01] MEDS ORDERED: GABAPENTIN 600 MG (NEURONTIN) TAB PO SCH (13:00)
--- NOTE | 2021-09-01 13:08 | OPERATIVE REPORT ---
DATE OF SERVICE: 09/01/2021 PREOPERATIVE DIAGNOSIS: Syncope. POSTOPERATIVE DIAGNOSIS: Syncope. INDICATIONS: the patient is a 56-year-old gentleman who had a syncopal episode on 08/30/2021. Apparently, and asystolic pause on his way to the emergency room, but nothing was documented. The patient was on rate lowering agents, including Cardizem and amiodarone. Those have been stopped. No significant arrhythmia has been recorded during his hospitalization. He insists on going home. We recommended an implantable loop recorder to monitor for arrhythmia. DESCRIPTION OF PROCEDURE: Informed consent was obtained. The left prepectoral area was prepared and draped in the usual sterile fashion. Lidocaine 1% was used for local anesthesia. We used the tools provided with the Medtronic LINQ II device to make a subcutaneous pocket anterior to the fourth intercostal space into which the device was placed and the wound edges were closed using Dermabond and Steri-Strips. He tolerated the procedure well. The serial number of the Medtronic LINQ II device is [id number] Job ID: [id number] DocumentID: [id number] Dictated Date: 09/01/2021 09:07:34 Manager Hematology Date: 09/01/2021 13:07:39 Dictated By: HUNTER BERGERON MD, MA, FACP, FACC,
[2021-09-01] MEDS ORDERED: OXC5T PO (14:37)
--- NOTE | 2021-09-01 14:39 | Discharge Summary ---
Discharge Summary Hospital Course Was the Problem List Reviewed?: Yes Problems/Dx: (1) Symptomatic bradycardia Status: Acute (2) Syncope Status: Acute Qualifiers: Qualified Codes: R55 - Syncope and collapse Hospital Course Date of Admission: Aug 30, 2021 at 19:57 Admission Diagnosis : Family Physician/Provider: No,Local Physician Date of Discharge: 09/01/21 Discharge Diagnosis: Symptomatic bradycardia, syncope Hospital Course: Pt had a brief hospital course after he was admitted for a syncopal episode and was unresponsive. He was found to have symptomatic bradycardia. Amiodraone and Diltiazem were both held. Pt received potassium supplementation. Pt overall felt really good. Pt had no other concerns. He was discharged back to [facility]. Labs and Pending Lab Test: Laboratory Tests 08/31/21 15:50: Glucometer 159H 08/31/21 21:07: Glucometer 211H 09/01/21 04:00: White Blood Count 7.1, Red Blood Count 4.13L, Hemoglobin 11.7L, Hematocrit 38L, Mean Corpuscular Volume 91, Mean Corpuscular Hemoglobin 28, Mean Corpuscular Hemoglobin Concent 31L, Red Cell Distribution Width 14.7H, Platelet Count 269, Mean Platelet Volume 10.9, Immature Granulocyte % (Auto) 0, Neutrophils (%) (Auto) 65, Lymphocytes (%) (Auto) 20, Monocytes (%) (Auto) 10, Eosinophils (%) (Auto) 3, Basophils (%) (Auto) 1, Neutrophils # (Auto) 4.6, Lymphocytes # (Auto) 1.5, Monocytes # (Auto) 0.7, Eosinophils # (Auto) 0.2, Basophils # (Auto) 0.1, Immature Granulocyte # (Auto) 0.0, Sodium Level 139, Potassium Level 3.0L, Chloride Level 96L, Carbon Dioxide Level 29, Anion Gap 14, Blood Urea Nitrogen 40H, Creatinine 1.68H, Estimat Glomerular Filtration Rate 47, BUN/Creatinine Ratio 24, Glucose Level 159H, Calcium Level 9.2, Corrected Calcium 9.7, Magnesium Level 2.3, Total Bilirubin 0.5, Aspartate Amino Transf (AST/SGOT) 19, Alanine Aminotransferase (ALT/SGPT) 25, Alkaline Phosphatase 88, Total Protein 7.3, Albumin 3.4 09/01/21 10:46: Glucometer 226H 3/23/22 14:10: Potassium Level [Pending] Home Meds Active Oxyir Tablet (Oxycodone HCl) 5 Mg Tab 5 Mg PO Q4HR PRN Reported Amiodarone HCl 400 Mg Tablet 400 Mg PO BID HOLD FOR SBP <100 OR PULSE <60 Farxiga (Dapagliflozin Propanediol) 10 Mg Tablet 10 Mg PO DAILY Diltiazem 24Hr ER (Diltiazem HCl) 120 Mg Cap.er.24h 120 Mg PO DAILY Novolog Flexpen (Insulin Aspart) 300 Units/3 Ml Solution 20 Units SQ AC Levemir Flextouch (Insulin Detemir) 100 Unit/1 Ml Insuln.pen 35 Unit SQ DAILY Levemir Flextouch (Insulin Detemir) 100 Unit/1 Ml Insuln.pen 30 Unit SQ HS Atorvastatin Calcium 80 Mg Tablet 80 Mg PO HS Potassium Chloride 20 Meq Tab.er.prt 20 Meq PO DAILY Gabapentin 600 Mg Tablet 600 Mg PO TID Eliquis (Apixaban) 5 Mg Tablet 5 Mg PO BID Clopidogrel (Clopidogrel Bisulfate) 75 Mg Tablet 75 Mg PO DAILY Duloxetine HCl 30 Mg Capsule.dr 30 Mg PO BID Trulicity (Dulaglutide) 1.5 Mg/0.5 Ml Pen.injctr 1.5 Mg IJ SUN Metolazone 5 Mg Tablet 5 Mg PO DAILY Furosemide 40 Mg Tablet 80 Mg PO DAILY TAKES 2 (40MG) TABS Assessment/Pt Instructions PCP in 1 week Discharge Planning: <30 minutes discharge planning Discharge Instructions Discharge Diet: ADA Diet Discharge Physical Examination Vital Signs Vital Signs Date Time Temp Pulse Resp B/P (MAP) Pulse Ox O2 Delivery O2 Flow Rate FiO2 09/01/21 13:00 65 09/01/21 13:00 12 97 Nasal Cannula 2.00 09/01/21 12:00 36.7 09/01/21 10:00 131/96 (108) 08/30/21 23:05 21 General Appearance: No Apparent Distress, WD/WN, Chronically ill Cardiovascular: Regular Rate, Rhythm Allergies: Coded Allergies: No Known Drug Allergies (Unverified , 02/26/14) Discharge Summary Date of Admission Aug 30, 2021 at 19:57 Date of Discharge Discharge Date: Sep 01, 2021 Admission Diagnosis Assessment: Symptomatic bradycardia Syncopal and unresponsive episode Atrial fibrillation prior ablation Plan: Oral anticoagulants Holding amiodarone and diltiazem GILL,GAYATRI DO Sep 01, 2021 14:39
--- NOTE | 2021-09-01 14:39 | Discharge Inst-Skilled Nursing ---
Discharge Inst-Skilled NF Reconcile Patient Problems Problems Reviewed?: Yes Chief Complaint CC: Syncopal episode due to bradycardia HPI: 56 yr old WM known to me from prior hospital stay. He came from [facility] after syncopal and unresponsive episode found to have bradycardia. Cardizem and Amiodarone were held. Maintain on anticoagulation. Cardiology will be consulted. Currently he is doing well and having no pain. Patient Instructions Patient Problems: syncope bradycardia Goal: [place] Consult/Follow Up/Orders Follow Up Appt.: PCP 1 week Cardiology Skilled NF Admit to: [facility] Certification (SNF) I certify that SNF services are required to be given on an inpatient basis because of the above named patient's need for fci care on a continuing basis for the conditions(s) for which he/she was receiving inpatient hospital services prior to his/her transfer to the [facility]. Nursing Home Facility Order: Nursing Services, Physical Therapy-Evaluate & Treat Oxygen Delivery Method: Nasal Cannula Discharge Diet: ADA Diet Resuscitation Status: Full Code New & Resume Previous Orders New Medications: Oxycodone Hcl (Oxyir Tablet) 5 Mg Tab 5 MG PO Q4HR PRN for PAIN-SEE DOSE INSTRUCTIONS, #10 TAB Continued Medications: Apixaban (Eliquis) 5 Mg Tablet 5 MG PO BID, TAB Atorvastatin Calcium (Atorvastatin Calcium) 80 Mg Tablet 80 MG PO HS, TAB Clopidogrel Bisulfate (Clopidogrel) 75 Mg Tablet 75 MG PO DAILY, TAB Dapagliflozin Propanediol (Farxiga) 10 Mg Tablet 10 MG PO DAILY, TAB Dulaglutide (Trulicity) 1.5 Mg/0.5 Ml Pen.injctr 1.5 MG IJ JARAD POTTER Duloxetine HCl (Duloxetine HCl) 30 Mg Capsule.dr 30 MG PO BID, CAP Furosemide (Furosemide) 40 Mg Tablet 80 MG PO DAILY, TAB TAKES 2 (40MG) TABS Gabapentin (Gabapentin) 600 Mg Tablet 600 MG PO TID, TAB Insulin Aspart (Novolog Flexpen) 300 Units/3 Ml Solution 20 UNITS SQ AC, EA Insulin Detemir (Levemir Flextouch) 100 Unit/1 Ml Insuln.pen 30 UNIT SQ HS, EA Insulin Detemir (Levemir Flextouch) 100 Unit/1 Ml Insuln.pen 35 UNIT SQ DAILY, EA Metolazone (Metolazone) 5 Mg Tablet 5 MG PO DAILY, TAB Potassium Chloride (Potassium Chloride) 20 Meq Tab.er.prt 20 MEQ PO DAILY Discontinued Medications: Amiodarone HCl (Amiodarone HCl) 400 Mg Tablet 400 MG PO BID, TAB HOLD FOR SBP <100 OR PULSE <60 Diltiazem HCl (Diltiazem 24Hr ER) 120 Mg Cap.er.24h 120 MG PO DAILY, CAP Geovanna Inman Sep 01, 2021 14:38 GEOVANNA INMAN DO Sep 01, 2021 14:38
[2021-09-01] MEDS ORDERED: DULoxetine 30 MG (CYMBALTA) CAP PO SCH (21:00)
[2021-09-02] MEDS ORDERED: KCL 20 MEQ TAB (K-DUR) PO SCH (07:00)
[2021-09-02] MEDS ORDERED: METOLAZONE 5 MG (ZAROXOLYN) TAB PO SCH (09:00)
[2021-09-02] MEDS ORDERED: CLOPIDOGREL 75 MG (PLAVIX) TABLET PO SCH (09:00)
[2021-09-02] MEDS ORDERED: FUROSEMIDE 40 MG (LASIX) TAB PO SCH (09:00)
[2021-09-02] MEDS ORDERED: EMPAGLIFLOZIN 10 MG TABLET (JARDIANCE) PO SCH (09:00)
== END 2021-09-01 15:30 | DRG 261 ==
LOC: EDUNIT# 18:54 → ER 18:55 → ICU 19:57 → 4TH 09-01 14:08
PROVIDERS: ADMIT Internal Medicine; ATTEND Internal Medicine
PROC: 0JH632Z Insertion of Monitoring Device into Chest Subcutaneous Tissue and Fascia, Percutaneous Approach (ICD-10-PCS; principal; 2021-09-01)
DX: R00.1 Bradycardia, unspecified (principal); N17.9 Acute kidney failure, unspecified; I13.0 Hypertensive heart and chronic kidney disease with heart failure and stage 1 through stage 4 chronic kidney disease, or unspecified chronic kidney disease; I50.9 Heart failure, unspecified; E87.6 Hypokalemia; E11.40 Type 2 diabetes mellitus with diabetic neuropathy, unspecified; Z79.01 Long term (current) use of anticoagulants; I48.0 Paroxysmal atrial fibrillation; T50.2X5A Adverse effect of carbonic-anhydrase inhibitors, benzothiadiazides and other diuretics, initial encounter; N18.9 Chronic kidney disease, unspecified; I42.9 Cardiomyopathy, unspecified; I25.10 Atherosclerotic heart disease of native coronary artery without angina pectoris; Z86.73 Personal history of transient ischemic attack (TIA), and cerebral infarction without residual deficits; E78.5 Hyperlipidemia, unspecified; E11.21 Type 2 diabetes mellitus with diabetic nephropathy; E11.22 Type 2 diabetes mellitus with diabetic chronic kidney disease; F17.210 Nicotine dependence, cigarettes, uncomplicated; J44.9 Chronic obstructive pulmonary disease, unspecified; E78.00 Pure hypercholesterolemia, unspecified; M19.90 Unspecified osteoarthritis, unspecified site; Z79.4 Long term (current) use of insulin; Z79.899 Other long term (current) drug therapy
CPT/HCPCS: 33285; 36415; 71045; 73610; 80053; 82947; 83735; 83880; 84132; 84484; 85025; 85610; 85730; 93005; 93041; 96360

== ENCOUNTER → 2021-08-30 | Outpatient (CLI) | payer MEDICAID ==
[~2021-08-30] MED LIST changes: +AMIO400T5 PO; +DAPA10TA PO; +OXC5T PO
--- NOTE | 2021-08-30 09:51 | Diagnostic Imaging Report ---
INDICATION: Follow-up distal fibular fracture. TIME OF EXAM: 9:26 AM Correlation is made with prior radiograph from 08/16/2021. FINDINGS: Ankle alignment remains within normal limits. The fracture of the distal fibula again is similar to prior study. Fracture lines remain clearly visible. No significant bridging callus formation is noted. Overall alignment is anatomic. IMPRESSION: Stable distal fibular fracture since exam from 08/16/2021. Fracture line remains clearly visible. Alignment is anatomic. Dictated by: Dictated on workstation # [id number]
== END ==
LOC: ORTHO 09:04
PROVIDERS: ATTEND Orthopaedic Surgery
DX: S82.891D Other fracture of right lower leg, subsequent encounter for closed fracture with routine healing (principal); X58.XXXD Exposure to other specified factors, subsequent encounter
CPT/HCPCS: 73610

== ENCOUNTER → 2021-09-13 | Outpatient (CLI) | payer MEDICAID ==
[~2021-09-13] MED LIST changes: +AMIO400T5 PO; +DAPA10TA PO; +OXC5T PO
--- NOTE | 2021-09-13 09:33 | Diagnostic Imaging Report ---
INDICATION: Follow-up right ankle fracture. TIME OF EXAM: 9:09 AM Correlation is made with prior radiograph from 08/30/2021. Obliquely oriented fracture of the distal fibula is again noted. Fracture lines remain clearly visible. Alignment is stable. There is some widening of the medial clear space of the ankle. The talar dome is smooth. No other fractures are identified. IMPRESSION: Obliquely oriented distal fibular fracture. Fracture lines remain clearly visible but alignment is anatomic. There is continued widening of the medial clear space. Dictated by: Dictated on workstation # [id number]
== END ==
LOC: ORTHO 08:55
PROVIDERS: ATTEND Orthopaedic Surgery
DX: S82.892D Other fracture of left lower leg, subsequent encounter for closed fracture with routine healing (principal); X58.XXXD Exposure to other specified factors, subsequent encounter
CPT/HCPCS: 73610

== ENCOUNTER 2021-09-28 09:00 | Day surgery (SDC) | payer MEDICAID ==
[2021-09-28] VITALS (12 sets, daily range): BP systolic 106–157; BP diastolic 57–130
[~2021-09-28] VITALS: Ht 180.3 cm; Wt 131.4 kg
[2021-09-28 08:00] LABS: BASOPHILS # (AUTO) 0.1 10^3/uL (0.0-0.1); BASOPHILS % (AUTO) 1 % (0-10); EOSINOPHILS # (AUTO) 0.3 10^3/uL (0.0-0.3); EOSINOPHILS % (AUTO) 3 % (0-10); HEMATOCRIT 48 % (40-54); HEMOGLOBIN 15.1 g/dL (13.3-17.7); LYMPHOCYTES # (AUTO) 1.7 10^3/uL (1.0-4.0); LYMPHOCYTES % (AUTO) 18 % (12-44); MEAN CORPUSCULAR HEMOGLOBIN 28 pg (25-34); MEAN CORPUSCULAR HGB CONC 31 g/dL (32-36); MEAN CORPUSCULAR VOLUME 90 fL (80-99); MEAN PLATELET VOLUME 10.7 fL (9.0-12.2); MONOCYTES # (AUTO) 0.7 10^3/uL (0.0-1.0); MONOCYTES % (AUTO) 7 % (0-12); NEUTROPHILS # (AUTO) 6.6 10^3/uL (1.8-7.8); NEUTROPHILS % (AUTO) 70 % (42-75); PLATELET COUNT 297 10^3/uL (130-400); WHITE BLOOD COUNT 9.4 10^3/uL (4.3-11.0)
[2021-09-28 08:15] LABS: PROTHROMBIN TIME PATIENT 13.5 SEC (12.2-14.7)
[2021-09-28 08:19] LABS: ALBUMIN 4.3 GM/DL (3.2-4.5); BILIRUBIN,TOTAL 0.5 MG/DL (0.1-1.0); CALCIUM 9.7 MG/DL (8.5-10.1); CREATININE SERUM 2.13 MG/DL (0.60-1.30); POTASSIUM 2.8 MMOL/L (3.6-5.0)
[~2021-09-28 09:00] MED LIST changes: +HEParin (CATH LAB) 1,000 ML IV ONE; +KCL 20 MEQ TAB (K-DUR) PO ONE; +LIDOCAINE 1% INJ 50 ML (XYLOCAINE) VIAL ONE; +NS IV 1000 ML 1,000 ML IV SCH; +NS IV 1000 ML 2,000 ML ONE; +POTASSIUM CHLORIDE INJ 40 MEQ in NS IV 1000 ML 1,000 ML IV SCH
[2021-09-28] MEDS: NS W/KCL 40 MEQ/L 1,000 ML IV SCH (09:29)
[2021-09-28] MEDS ORDERED: MIDAZOLAM 5 MG/5 ML (VERSED) VIAL ONE ×2 (10:42→11:28)
[2021-09-28] MEDS ORDERED: fentaNYL INJ 100 MCG/2 ML AMP ONE ×2 (10:42→11:26)
[2021-09-28] MEDS ORDERED: ceFAZolin INJECTION 1,000 MG ONE (11:03)
[2021-09-28] MEDS ORDERED: diphenhydrAMINE 50 MG/ML INJ (BENADRYL) ONE (11:41)
[2021-09-28] MEDS ORDERED: MIDAZOLAM 2 MG/2 ML (VERSED) VIAL ONE (12:03)
--- NOTE | 2021-09-28 12:53 | Cardiac Procedure Note-CS/ASA ---
Pre-Procedure Note Pre-Op Procedure Note H&P Reviewed The H&P was reviewed, patient examined and no changes noted. Date H&P Reviewed: Sep 28, 2021 Time H&P Reviewed: 10:30 Conscious Sedation Pre-Proced Time 10:30 ASA Score 3 For ASA 3 and 4: Consider anesthesia and medical clearance. Also, for patients with a history of failed moderate sedation consider anesthesia. Airway Lungs Heart ASA score ASA 1: a normal healthy patient ASA 2: a patient with a mild systemic disease (mid diabetes, controlled hypertension, obesity ASA 3: a patient with a severe systemic disease that limits activity (angina, COPD, prior Myocardial infarction) ASA 4: a patient with an incapacitating disease that is a constant threat to life (CHF, renal failure) ASA 5: a moribund patient not expected to survive 24 hrs. (ruptured aneurysm) ASA 6: a declared brain- patient whose organs are being harvested. For emergent operations, add the letter E after the classification Mallampati Classification Grade 3 Sedation Plan Analgesia, Amnesia, Plan communicated to team members, Discussed options with patient/fam, Discussed risks with patient/fam The patient is an appropriate candidate to undergo the planned procedure, sedation, and anesthesia. The patient immediately re-assessed prior to indication. HUNTER BERGERON MD FACP FAC CCDS Sep 28, 2021 12:53
[2021-09-28] MEDS ORDERED: NON-FORMULARY MEDICATION 1 EA EA (Insulin Aspart (Novolog Flexpen) 20 UNITS) SQ SCH (13:00)
[2021-09-28] MEDS ORDERED: PATIENT MAY USE OWN MEDS, ALL PO SCH (13:00)
[2021-09-28] MEDS ORDERED: NS IV 1000 ML 1,000 ML IV SCH (13:00)
[2021-09-28] MEDS ORDERED: INSULIN ASPART 24 UNIT SQ SCH (13:00)
[2021-09-28] MEDS ORDERED: NON-FORMULARY MEDICATION 1 EA EA (Dulaglutide (Trulicity) 1.5 MG) IJ SCH (13:00)
--- NOTE | 2021-09-28 13:09 | OPERATIVE REPORT ---
DATE OF SERVICE: 09/28/2021 PREOPERATIVE DIAGNOSIS: Sinus node dysfunction with syncope. POSTOPERATIVE DIAGNOSIS Sinus node dysfunction with syncope. PROCEDURE: Dual chamber pacemaker implantation. The patient is a 56-year-old man who has been having symptomatic bradycardia. This is despite discontinuation of all rate lowering medications for well over a couple of weeks. Accordingly, dual chamber pacemaker implantation was carried out after having obtained an informed consent. DESCRIPTION OF PROCEDURE: He was brought to the cardiac catheterization laboratory in a fasting state. The left prepectoral area was prepared and draped in the usual sterile fashion. Lidocaine 1% was used for local anesthesia. Modified Seldinger technique was used to advance two guidewires into the left subclavian vein and the tips were placed in the right atrium. Sharp and blunt dissection was then used to make a pacemaker pocket. Good hemostasis was assured. The pocket was packed with gauze soaked in saline. The guidewires were used to advance sheaths and the guidewires were removed. The sheaths were used to advance leads and the sheaths were removed. The leads are active fixation. Ventricular lead was placed at the right ventricular apex. Atrial lead was placed at the right atrial appendage. Good capturing and sensing thresholds were obtained. The leads were sutured to the prepectoral fascia using sleeves and 0 Ethibond. The gauze was removed from the pocket and the pocket was irrigated with saline. The leads were attached to a dual chamber pacemaker and the leads in the pacemaker were placed in the pacemaker pocket and the pocket was closed in two layers using 3.0 Vicryl. The atrial lead is Medtronic model 5076-52 with serial#[id number], ventricular lead is Medtronic model 5076-58, serial #[id number]. Atrial capture threshold is 0.5 volts at 0.4 milliseconds. The atrial lead impedance is 703 ohms. P waves are measured at 3.1 millivolts. The ventricular capture threshold is 0.37 volts at 0.4 milliseconds. Ventricular lead impedance is 741 ohms. R-wave amplitude is 7 volts. The pacemaker is in the DDDR mode with a lower rate of 60 beats per minute and upper tracking rate and upper activity rate of 130 beats per minute. Job ID: [id number] DocumentID: [id number] Dictated Date: 09/28/2021 12:49:55 Environmental Engineering Aide Date: 09/28/2021 13:09:22 Dictated By: HUNTER BERGERON MD, MA, FACP, FACC,
[2021-09-28] MEDS: NS IV 1000 ML 1,000 ML IV SCH ×2 (13:41→22:54)
--- NOTE | 2021-09-28 13:47 | Diagnostic Imaging Report ---
INDICATION: Post heart catheterization procedure. TIME OF EXAM: 1:00 PM. COMPARISON: Prior chest radiograph from 08/30/2021. FINDINGS: The heart size is normal. The dual-lead left subclavian cardiac pacer has lead tips in the region of right atrium and right ventricle. A loop recorder overlies the left chest. The lungs are clear. No infiltrates are seen. There is no effusion or pneumothorax. The pulmonary vascularity is normal. IMPRESSION: No acute cardiopulmonary process is detected. Dictated by: Dictated on workstation # [id number]
[2021-09-28] MEDS ORDERED: KCL 20 MEQ TAB (K-DUR) PO NR (14:15)
[2021-09-28] MEDS: GABAPENTIN 600 MG (NEURONTIN) TAB PO SCH ×2 (15:21→21:26)
[2021-09-28] MEDS: ceFAZolin INJECTION 1,000 MG in NS (IVPB) 50 ML IV SCH ×2 (15:21→21:25)
[2021-09-28] MEDS ORDERED: inSUlin ASPART (NovoLOG) 1 UNIT/0.01 ML (CHARGE PER UNIT) SC SCH (17:00)
[2021-09-28] MEDS: KCL 20 MEQ TAB (K-DUR) PO SCH (17:46)
[2021-09-28] MEDS ORDERED: NON-FORMULARY MEDICATION 1 EA EA (Insulin Detemir (Levemir Flextouch) 30 UNIT) SQ SCH (21:00)
[2021-09-28] MEDS: DULoxetine 30 MG (CYMBALTA) CAP PO SCH (21:25)
[2021-09-29] MEDS: NS W/KCL 40 MEQ/L 1,000 ML IV SCH ×2 (00:24→04:22)
[2021-09-29] MEDS: NS IV 1000 ML 1,000 ML IV SCH (01:44)
[2021-09-29 03:01] VITALS: BP 112/63
[2021-09-29] MEDS: ceFAZolin INJECTION 1,000 MG in NS (IVPB) 50 ML IV SCH (04:50)
[2021-09-29 06:40] LABS: HEMATOCRIT 44 % (40-54); HEMOGLOBIN 13.4 g/dL (13.3-17.7); MEAN CORPUSCULAR HEMOGLOBIN 28 pg (25-34); MEAN CORPUSCULAR HGB CONC 31 g/dL (32-36); MEAN CORPUSCULAR VOLUME 91 fL (80-99); MEAN PLATELET VOLUME 10.9 fL (9.0-12.2); PLATELET COUNT 261 10^3/uL (130-400); WHITE BLOOD COUNT 9.5 10^3/uL (4.3-11.0)
[2021-09-29 06:51] LABS: ALBUMIN 3.7 GM/DL (3.2-4.5); POTASSIUM 3.3 MMOL/L (3.6-5.0)
[2021-09-29 06:52] LABS: CALCIUM 8.8 MG/DL (8.5-10.1)
[2021-09-29 06:54] LABS: TOTAL PROTEIN 7.2 GM/DL (6.4-8.2)
[2021-09-29 06:56] LABS: BILIRUBIN,TOTAL 0.5 MG/DL (0.1-1.0)
[2021-09-29 06:57] LABS: CREATININE SERUM 1.8 MG/DL (0.60-1.30)
[2021-09-29 07:21] VITALS: BP 115/57
[2021-09-29] MEDS: inSUlin ASPART (NovoLOG) 1 UNIT/0.01 ML (CHARGE PER UNIT) SC SCH ×2 (08:06→11:36)
[2021-09-29] MEDS: GABAPENTIN 600 MG (NEURONTIN) TAB PO SCH ×2 (08:07→13:37)
[2021-09-29] MEDS: KCL 20 MEQ TAB (K-DUR) PO SCH (08:07)
[2021-09-29] MEDS: DULoxetine 30 MG (CYMBALTA) CAP PO SCH (08:07)
--- NOTE | 2021-09-29 08:09 | Progress Note - Cardiology ---
Cardiology SOAP Progress Note Objective: I&O/Vital Signs 09/28/21 09/28/21 09/29/21 09/29/21 20:45 23:39 01:01 03:01 Temp 36.7 36.5 Pulse 77 80 77 Resp 20 18 B/P (MAP) 121/63 (82) 112/63 (79) Pulse Ox 95 94 O2 Delivery Room Air Room Air Room Air 09/29/21 07:21 Temp 36.3 Pulse 75 Resp 18 B/P (MAP) 115/57 (76) Pulse Ox 91 O2 Delivery Room Air 09/29/21 00:00 Intake Total 410 ml Balance 410 ml Weight (Pounds): 358 Weight (Ounces): 1.0 Weight (Calculated Kilograms): 162.488316 Results/Procedures: Labs Laboratory Tests 09/28/21 20:44: Glucometer 88 09/28/21 22:24: Glucometer 130H 09/29/21 05:35: Glucometer 152H 09/29/21 05:36: White Blood Count 9.5, Red Blood Count 4.76, Hemoglobin 13.4, Hematocrit 44, Mean Corpuscular Volume 91, Mean Corpuscular Hemoglobin 28, Mean Corpuscular Hemoglobin Concent 31L, Red Cell Distribution Width 15.1H, Platelet Count 261, Mean Platelet Volume 10.9, Sodium Level 140, Potassium Level 3.3L, Chloride Level 99, Carbon Dioxide Level 27, Anion Gap 14, Blood Urea Nitrogen 40H, Creatinine 1.80H, Estimat Glomerular Filtration Rate 44, BUN/Creatinine Ratio 22, Glucose Level 146H, Calcium Level 8.8, Corrected Calcium 9.0, Total Bilirubin 0.5, Aspartate Amino Transf (AST/SGOT) 16, Alanine Aminotransferase (ALT/SGPT) 18, Alkaline Phosphatase 85, Total Protein 7.2, Albumin 3.7 09/29/21 07:59: Glucometer 139H Microbiology 09/28/21 MRSA Screen - Final, Complete MRSA not isolated Laboratory Tests 09/28/21 07:50 09/29/21 05:36 A/P: Assessment: SSS with syncope - witnessed, but rhythm undocumented - During transport to ER on 08/30/21, long asystolic pause was reported by EMS, but there is no documentation of that - All rate-lowering meds stopped on 08/30/21 - ILR implanted on 09/01/21 - One 4-second pause at approx 4 pm on 09/11/21. Pt thinks he was sleeping at that time - S/P dual chamber PPM implant on 09-29-21 Hypokalemia during recent hospitalization - Likely d/t chronic diuretic tx - no evidence of CHF - diuretics stopped PAF - cardio[place] [address] Storm - ablation in December [address] Storm - MAMADOU with electrical cardioversion on August 05, [address] Burgess Acute on chronic renal failure - acute likely secondary to aggressive diuretics - chronic likely secondary to diabetic nephropathy H/o CHF and cardiomyopathy, resolved - Echocardiogram of November 2019 showed LVEF 15-20%. Mild MR. LA dilated. PASP 60- 65mmHg - Echocardiogram of September 01, 2020 showed LVEF 50-55%. LA is mod dilated. A bicuspid aortic valve morphology cannot be excluded. The leaflets are mildly thickened and mildly calcified - MAMADOU on 08/05/21: LVEF 50%, dilated atria, no ASD CAD - Mild coronary artery disease per cardiac catheterization done in December 2019 History of CVA - received thrombolytics, required rehabilitation Hypertension - controlled Hyperlipidemia Baseline abnormal EKG with right bundle branch block and left anterior fascicular block Tobaccoism - advised to quit History of meth abuse - advised to continue to refrain H/O ETOH abuse - has been refraining HAWA ENCINAS Sep 29, 2021 08:09
--- NOTE | 2021-09-29 08:12 | Discharge Inst-Cardiology ---
Discharge Inst-Cardiac Discharge Medications New Medications: Cefuroxime Axetil (Cefuroxime) 500 Mg Tablet 500 MG PO BID, #10 TAB Continued Medications: Apixaban (Eliquis) 5 Mg Tablet 5 MG PO BID, TAB Atorvastatin Calcium (Atorvastatin Calcium) 80 Mg Tablet 80 MG PO HS, TAB Clopidogrel Bisulfate (Clopidogrel) 75 Mg Tablet 75 MG PO DAILY, TAB Dapagliflozin Propanediol (Farxiga) 10 Mg Tablet 10 MG PO DAILY, TAB Dulaglutide (Trulicity) 1.5 Mg/0.5 Ml Pen.injctr 1.5 MG IJ SUN, EA Duloxetine HCl (Duloxetine HCl) 30 Mg Capsule.dr 30 MG PO BID, CAP Furosemide (Furosemide) 40 Mg Tablet 80 MG PO DAILY, TAB TAKES 2 (40MG) TABS Gabapentin (Gabapentin) 600 Mg Tablet 600 MG PO TID, TAB Insulin Aspart (Novolog Flexpen) 300 Units/3 Ml Solution 20 UNITS SQ morning and noon, EA Insulin Aspart (Novolog Flexpen) 100 Unit/Ml (3 Ml) Solution 24 UNITS SQ evening, EA Insulin Detemir (Levemir Flextouch) 100 Unit/1 Ml Insuln.pen 30 UNIT SQ HS, EA Insulin Detemir (Levemir Flextouch) 100 Unit/1 Ml Insuln.pen 35 UNIT SQ DAILY, EA Oxycodone Hcl (Oxyir Tablet) 5 Mg Tab 5 MG PO Q4HR PRN for PAIN-SEE DOSE INSTRUCTIONS, #10 TAB Potassium Chloride (Potassium Chloride) 20 Meq Tab.er.prt 20 MEQ PO DAILY Discontinued Medications: Metolazone (Metolazone) 5 Mg Tablet 5 MG PO every other day, TAB Patient Instructions Patient Instructions: Please schedule appointment to see Dr. Cartwright's nurse on October 01 for a dressing change to device site Please schedule follow up appointment to see Dr. Cartwright in 2 weeks Please have lab, BMP and Mag, level done on Monday, October 04, 2021 - please call our office for the results HAWA ENCINAS Sep 29, 2021 08:12
[2021-09-29] MEDS ORDERED: CEFU500T63 PO (08:14)
[2021-09-29] MEDS ORDERED: EMPAGLIFLOZIN 10 MG TABLET (JARDIANCE) PO SCH (09:00)
[2021-09-29] MEDS ORDERED: FUROSEMIDE 40 MG (LASIX) TAB PO SCH (09:00)
[2021-09-29] MEDS ORDERED: CLOPIDOGREL 75 MG (PLAVIX) TABLET PO SCH (09:00)
[2021-09-29] MEDS ORDERED: INSULIN DETEMIR 35 UNIT SQ SCH (09:00)
[2021-09-29] MEDS ORDERED: NON-FORMULARY MEDICATION 1 EA EA (Dapagliflozin Propanediol (Farxiga) 10 MG) PO SCH (09:00)
[2021-09-29] MEDS ORDERED: KCL 20 MEQ TAB (K-DUR) PO ONE (09:30)
[2021-09-29 11:29] VITALS: BP 121/65
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
[2021-09-29 14:01] VITALS: BP 121/56
== END 2021-09-29 14:30 | disposition home or self-care (01) ==
LOC: CATH 09:00 → CSD 13:13 → 4TH 19:07 → CATH 09-29 14:30
PROVIDERS: ATTEND Internal Medicine Cardiovascular Disease
DX: I49.5 Sick sinus syndrome (principal); R55 Syncope and collapse; E87.6 Hypokalemia; E78.5 Hyperlipidemia, unspecified; I48.0 Paroxysmal atrial fibrillation; I42.0 Dilated cardiomyopathy; Z79.01 Long term (current) use of anticoagulants; N18.6 End stage renal disease; N17.9 Acute kidney failure, unspecified; I50.9 Heart failure, unspecified; I25.10 Atherosclerotic heart disease of native coronary artery without angina pectoris; I12.9 Hypertensive chronic kidney disease with stage 1 through stage 4 chronic kidney disease, or unspecified chronic kidney disease; I34.0 Nonrheumatic mitral (valve) insufficiency; Z86.73 Personal history of transient ischemic attack (TIA), and cerebral infarction without residual deficits; Z79.899 Other long term (current) drug therapy; Z87.891 Personal history of nicotine dependence
CPT/HCPCS: 33208; 36415; 71046; 80053; 80061; 82947; 85025; 85027; 85610; 85730; 87081; 93005

== ENCOUNTER → 2021-10-04 | Outpatient (CLI) | payer MEDICAID ==
[~2021-10-04] MED LIST changes: +CEFU500T63 PO; -HEParin (CATH LAB) 1,000 ML IV ONE; -KCL 20 MEQ TAB (K-DUR) PO ONE; -LIDOCAINE 1% INJ 50 ML (XYLOCAINE) VIAL ONE; -NS IV 1000 ML 1,000 ML IV SCH; -NS IV 1000 ML 2,000 ML ONE; -POTASSIUM CHLORIDE INJ 40 MEQ in NS IV 1000 ML 1,000 ML IV SCH
--- NOTE | 2021-10-04 09:58 | Diagnostic Imaging Report ---
INDICATION: Followup right ankle fracture. COMPARISON: 09/13/2021. EXAMINATION: Right ankle, 3 views. FINDINGS: The oblique fracture of the distal fibula is again noted. There is mild displacement noted. There has been some early bony callus formation though there is no solid bony bridging callus present as of yet. There has been widening of the medial malleolus and the talar space now measuring approximately 10 mm. Moderate arthritic changes are noted. IMPRESSION: There has been mild displacement of the ankle mortise with widening of the talotibial space since the previous exam, now measuring approximately 10 mm. Early healing of the mildly displaced distal fibular fracture is noted. Dictated by: Dictated on workstation # [id number]
== END ==
LOC: ORTHO 08:45
PROVIDERS: ATTEND Orthopaedic Surgery
DX: S82.891D Other fracture of right lower leg, subsequent encounter for closed fracture with routine healing (principal); X58.XXXD Exposure to other specified factors, subsequent encounter
CPT/HCPCS: 73610

== ENCOUNTER → 2021-10-25 | Outpatient (CLI) | payer MEDICAID ==
--- NOTE | 2021-10-25 08:54 | Diagnostic Imaging Report ---
EXAMINATION: Right ankle radiographs, 3 views. COMPARISON: October 04, 2021. HISTORY: 56-year-old male, ankle pain. Follow-up fracture. FINDINGS: There is an obliquely oriented mildly displaced distal fibular fracture extending upwards from the level of the tibial plafond. There is interval increase in periosteal reaction. There is a persistent visualized fracture line which is perhaps mildly less apparent likely relating to partial interval bony callus bridging. There is redemonstrated gross abnormal widening of the medial clear space of the ankle mortise. There is likely a small tibiotalar joint effusion. There are foci of increased attenuation adjacent to the medial malleolus likely relating to sequela of injury. IMPRESSION: 1. Redemonstrated mildly displaced distal fibular fracture extending upwards from the level of the tibial plafond with partial interval healing response. There is a persistent visualized fracture line. 2. Redemonstrated gross abnormal widening of the medial clear space and ankle mortise most compatible with deltoid ligament injury. Dictated by: Dictated on workstation # [id number]
== END ==
LOC: ORTHO 08:18
PROVIDERS: ATTEND Orthopaedic Surgery
DX: S82.891D Other fracture of right lower leg, subsequent encounter for closed fracture with routine healing (principal); X58.XXXD Exposure to other specified factors, subsequent encounter
CPT/HCPCS: 73610

== ENCOUNTER → 2022-01-06 | Outpatient (CLI) | payer MEDICAID, MEDICARE ==
--- NOTE | 2022-01-06 10:55 | Diagnostic Imaging Report ---
PROCEDURE: US Renal Bilateral. TECHNIQUE: Multiple real-time grayscale images were obtained over the kidneys in various projections bilaterally. INDICATION: Renal dysfunction. Correlated with CT abdomen 12/19/2019. FINDINGS: The right kidney measures 11.7, left 11.6 cm. There is no solid or cystic renal mass. No hydronephrosis. Echotexture and cortical thickness normal. The urinary bladder appeared normal. Bilateral ureteral jets were confirmed with color Doppler. IMPRESSION: Normal sonographic appearance of the unobstructed kidneys and a nonfocal urinary bladder. Dictated by: Dictated on workstation # [id number]
== END ==
LOC: RAD 09:00
PROVIDERS: ATTEND Internal Medicine
DX: N28.9 Disorder of kidney and ureter, unspecified (principal)
CPT/HCPCS: 76770

== ENCOUNTER 2022-04-23 11:42 | Emergency (ER) | payer MEDICARE, MEDICAID ==
[~2022-04-23] VITALS: Ht 181 cm; Wt 128.0 kg
[~2022-04-23 11:42] MED LIST changes: -PLTR10OP OP; +POLY10DR31 OP
--- NOTE | 2022-04-23 12:11 | ED General ---
General Chief Complaint: Skin/Wound Problems Stated Complaint: MULTIPLE SORES ON ARMS/LEGS Source of Information: Patient Exam Limitations: No Limitations History of Present Illness Date Seen by Provider: Apr 23, 2022 Time Seen by Provider: 12:04 Initial Comments 57-year-old male presents emergency department today stating I just do not feel well. He states this has been present for about a week or so. Also has multiple sores on his arms and legs that been there for "a wild." He cannot really tell me how long. He does have diabetes, acknowledges that he is not compliant with his medications. He has not checked his sugar in over a month. He denies any fevers or chills. No chest pain cough or shortness of breath. No abdominal pain or changes in bowel bladder habits. No sick contacts. Allergies and Home Medications Allergies Coded Allergies: No Known Drug Allergies (Unverified , 02/26/14) Patient Home Medication List Home Medication List Reviewed: Yes Apixaban (Eliquis) 5 Mg Tablet, 5 MG PO BID, (Reported) Entered as Reported by: ELBA GALLOWAY on 08/03/21 1019 Atorvastatin Calcium (Atorvastatin Calcium) 80 Mg Tablet, 80 MG PO HS, (Reported) Entered as Reported by: ELBA GALLOWAY on 08/03/21 1019 Cefuroxime Axetil (Cefuroxime) 500 Mg Tablet, 500 MG PO BID Prescribed by: HAWA ENCINAS on 09/29/21 0814 Clopidogrel Bisulfate (Clopidogrel) 75 Mg Tablet, 75 MG PO DAILY, (Reported) Entered as Reported by: ELBA GALLOWAY on 08/03/21 1019 Dapagliflozin Propanediol (Farxiga) 10 Mg Tablet, 10 MG PO DAILY, (Reported) Entered as Reported by: ELBA GALLOWAY on 08/31/21 1057 Dulaglutide (Trulicity) 1.5 Mg/0.5 Ml Pen.injctr, 1.5 MG IJ TARIQ, (Reported) Entered as Reported by: ELBA GALLOWAY on 08/03/21 1019 Duloxetine HCl (Duloxetine HCl) 30 Mg Capsule.dr, 30 MG PO BID, (Reported) Entered as Reported by: ELBA GALLOWAY on 08/03/21 1019 Furosemide (Furosemide) 40 Mg Tablet, 80 MG PO DAILY, (Reported) Entered as Reported by: CLINTON ARGUETA on 03/12/20 1225 Gabapentin (Gabapentin) 600 Mg Tablet, 600 MG PO TID, (Reported) Entered as Reported by: ELBA GALLOWAY on 08/03/21 1019 Insulin Aspart (Novolog Flexpen) 300 Units/3 Ml Solution, 20 UNITS SQ morning and noon, (Reported) Entered as Reported by: ELBA GALLOWAY on 08/31/21 1057 Insulin Aspart (Novolog Flexpen) 100 Unit/Ml (3 Ml) Solution, 24 UNITS SQ e vening, (Reported) Entered as Reported by: CLINTON ARGUETA on 09/28/21 0855 Insulin Detemir (Levemir Flextouch) 100 Unit/1 Ml Insuln.pen, 30 UNIT SQ HS, (Reported) Entered as Reported by: ELBA GALLOWAY on 08/31/21 1057 Insulin Detemir (Levemir Flextouch) 100 Unit/1 Ml Insuln.pen, 35 UNIT SQ DAILY, (Reported) Entered as Reported by: ELBA GALLOWAY on 08/31/21 1057 Oxycodone Hcl (Oxyir Tablet) 5 Mg Tab, 5 MG PO Q4HR PRN for PAIN-SEE DOSE INSTRUCTIONS Prescribed by: GAYATRI GILL on 09/01/21 1437 Potassium Chloride (Potassium Chloride) 20 Meq Tab.er.prt, 20 MEQ PO DAILY, (Reported) Entered as Reported by: ELBA GALLOWAY on 08/03/21 1019 Review of Systems Review of Systems Constitutional: no symptoms reported EENTM: no symptoms reported Respiratory: no symptoms reported Cardiovascular: no symptoms reported Gastrointestinal: no symptoms reported Genitourinary: no symptoms reported Musculoskeletal: no symptoms reported Skin: no symptoms reported Psychiatric/Neurological: No Symptoms Reported Hematologic/Lymphatic: No Symptoms Reported Immunological/Allergic: no symptoms reported Past Cwpbqyo-Laekxq-Ormlzn Hx Immunizations Up To Date Tetanus Booster (TDap): Unknown Seasonal Allergies Seasonal Allergies: No Past Medical History Surgery/Hospitalization HX: HX, STROKE AND SD Surgeries: No Tonsillectomy Respiratory: Yes Pneumonia, COPD Currently Using CPAP: Yes Cardiac: Yes Atrial Fibrillation, Cardiomyopathy, Coronary Artery Disease, High Cholesterol, Hypertension Neurological: Yes Neuropathy, TIA Reproductive Disorders: No Sexually Transmitted Disease: No HIV/AIDS: No Genitourinary: No Gastrointestinal: No Musculoskeletal: Yes Degenerate Disk Disease, Arthritis Endocrine: Yes (TYPE 2 DM) Diabetes, Insulin dep Loss of Vision: Denies Hearing Impairment: Denies Cancer: No Psychosocial: No Integumentary: No Blood Disorders: No Adverse Reaction/Blood Tranf: No Family Medical History Reviewed Nursing Family Hx Coronary thrombosis 19 FATHER Diabetes mellitus G8 BROTHER FH: lung cancer 19 MOTHER (MOTHER FROM LUNG CA) Hypercholesterolemia 19 FATHER Myocardial infarction 19 FATHER ( FROM [place]) Heart Disease, Cancer, Diabetes, Hypertension Physical Exam Vital Signs Vital Signs - First Documented 04/23/22 12:01 Pulse 81 Resp 20 B/P (MAP) 110/92 (98) O2 Delivery Room Air Capillary Refill : Height, Weight, BMI Height: 5'11.00" Weight: 358lbs. 1.0oz. 162.570444rh; 40.42 BMI Method: General Appearance: No Apparent Distress, WD/WN HEENT: PERRL/EOMI, TMs Normal, Normal ENT Inspection, Pharynx Normal Neck: Full Range of Motion, Normal Inspection, Non Tender, Supple Respiratory: Chest Non Tender, Lungs Clear, Normal Breath Sounds, No Accessory Muscle Use, No Respiratory Distress Cardiovascular: Regular Rate, Rhythm, No Edema, No Gallop, No JVD, No Murmur, Normal Peripheral Pulses Gastrointestinal: Normal Bowel Sounds, No Organomegaly, No Pulsatile Mass, Non Tender, Soft Extremity: Normal Inspection, Normal Range of Motion, Non Tender, No Pedal Edema, Other (Patient is changing consistent with chronic venous stasis bilaterally. He does have some wounds that are scabbed on bilateral legs, some on his right arm as well. No surrounding erythema or evidence of infection. 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 Norm as Tested Skin: Other (Skin changes as described above) Lymphatic: No Adenopathy Procedures/Interventions Date of ETT Placement: Dec 12, 2019 Progress/Results/Core Measures Suspected Sepsis SIRS Temperature: Pulse: Respiratory Rate: Laboratory Tests 04/23/22 12:18: White Blood Count 13.2H Blood Pressure / Mean: Laboratory Tests 04/23/22 12:18: Creatinine 1.61H, Platelet Count 289, Total Bilirubin 0.5 Results/Orders Lab Results Laboratory Tests Test 04/23/22 12:18 11/12/22 13:51 Range/Units White Blood Count 13.2 H 4.3-11.0 10^3/uL Red Blood Count 4.95 4.30-5.52 10^6/uL Hemoglobin 13.7 13.3-17.7 g/dL Hematocrit 43 40-54 % Mean Corpuscular Volume 86 80-99 fL Mean Corpuscular Hemoglobin 28 25-34 pg Mean Corpuscular Hemoglobin Concent 32 32-36 g/dL Red Cell Distribution Width 13.7 10.0-14.5 % Platelet Count 289 130-400 10^3/uL Mean Platelet Volume 11.0 9.0-12.2 fL Immature Granulocyte % (Auto) 0 % Neutrophils (%) (Auto) 79 H 42-75 % Lymphocytes (%) (Auto) 14 12-44 % Monocytes (%) (Auto) 5 0-12 % Eosinophils (%) (Auto) 1 0-10 % Basophils (%) (Auto) 1 0-10 % Neutrophils # (Auto) 10.4 H 1.8-7.8 10^3/uL Lymphocytes # (Auto) 1.8 1.0-4.0 10^3/uL Monocytes # (Auto) 0.7 0.0-1.0 10^3/uL Eosinophils # (Auto) 0.1 0.0-0.3 10^3/uL Basophils # (Auto) 0.1 0.0-0.1 10^3/uL Immature Granulocyte # (Auto) 0.0 0.0-0.1 10^3/uL Sodium Level 131 L 135-145 MMOL/L Potassium Level 4.6 3.6-5.0 MMOL/L Chloride Level 90 L 98-107 MMOL/L Carbon Dioxide Level 27 21-32 MMOL/L Anion Gap 14 5-14 MMOL/L Blood Urea Nitrogen 39 H 7-18 MG/DL Creatinine 1.61 H 0.60-1.30 MG/DL Estimat Glomerular Filtration Rate 50 BUN/Creatinine Ratio 24 Glucose Level 566 *H 70-105 MG/DL Calcium Level 9.4 8.5-10.1 MG/DL Corrected Calcium 9.6 8.5-10.1 MG/DL Total Bilirubin 0.5 0.1-1.0 MG/DL Aspartate Amino Transf (AST/SGOT) 13 5-34 U/L Alanine Aminotransferase (ALT/SGPT) 21 0-55 U/L Alkaline Phosphatase 114 40-136 U/L Total Protein 8.1 6.4-8.2 GM/DL Albumin 3.7 3.2-4.5 GM/DL Glucometer 463 *H 70-110 MG/DL My Orders Orders - BEBO SALAZAR DO Comprehensive Metabolic Panel (04/23/22 12:08) Cbc With Automated Diff (04/23/22 12:08) Insulin (Regular) Human (Novolin R (Per (04/23/22 13:15) Medications Given in ED Vital Signs/I&O 04/23/22 04/23/22 12:01 14:08 Pulse 81 81 Resp 20 20 B/P (MAP) 110/92 (98) 110/92 O2 Delivery Room Air Room Air Capillary Refill : Departure Communication (Admissions) Patient is hemodynamically stable with normal vital signs. Exam is reassuring. He has significant hyperglycemia. When questioned he states he has not been checking his blood sugars at all. He only intermittently takes insulin and just guesses on sliding scale insulin prior to meals. I think his symptoms are likely related to hyperglycemia chronically which is from medication noncompliance. There is no indication for infection, DKA. He is discharged in stable condition with supportive care. He does have insulin at home but states he needs a new glucometer. Given insulin prior to discharge and his blood sugars are trending down. Impression Primary Impression: Hyperglycemia due to diabetes mellitus Disposition: HOME, SELF-CARE Condition: Stable Departure-Patient Inst. Referrals: [facility] (PCP/Family) Primary Care Physician Patient Instructions: High Blood Sugar, Adult (DC) Add. Discharge Instructions: Please continue to use insulin at home as recommended. It is important that you maintain a diabetic diet and check your blood sugars as recommended. Follow up with your primary doctor for recheck of your sugars in 2-3 days. It is important to keep your blood sugars under control to help the wounds on your legs heal. I recommend you talk to your primary doctor about some ultrasounds of your legs to check the blood flow as well. Return to the ER for any severe concerns. All discharge instructions reviewed with patient and/or family. Voiced understanding. BEBO SALAZAR DO Apr 23, 2022 12:11
[2022-04-23 12:25] LABS: BASOPHILS # (AUTO) 0.1 10^3/uL (0.0-0.1); BASOPHILS % (AUTO) 1 % (0-10); EOSINOPHILS # (AUTO) 0.1 10^3/uL (0.0-0.3); EOSINOPHILS % (AUTO) 1 % (0-10); HEMATOCRIT 43 % (40-54); HEMOGLOBIN 13.7 g/dL (13.3-17.7); LYMPHOCYTES # (AUTO) 1.8 10^3/uL (1.0-4.0); LYMPHOCYTES % (AUTO) 14 % (12-44); MEAN CORPUSCULAR HEMOGLOBIN 28 pg (25-34); MEAN CORPUSCULAR HGB CONC 32 g/dL (32-36); MEAN CORPUSCULAR VOLUME 86 fL (80-99); MONOCYTES # (AUTO) 0.7 10^3/uL (0.0-1.0); MONOCYTES % (AUTO) 5 % (0-12); NEUTROPHILS # (AUTO) 10.4 10^3/uL (1.8-7.8); NEUTROPHILS % (AUTO) 79 % (42-75); PLATELET COUNT 289 10^3/uL (130-400); WHITE BLOOD COUNT 13.2 10^3/uL (4.3-11.0)
[2022-04-23 12:36] LABS: ALBUMIN 3.7 GM/DL (3.2-4.5); POTASSIUM 4.6 MMOL/L (3.6-5.0)
[2022-04-23 12:37] LABS: CALCIUM 9.4 MG/DL (8.5-10.1)
[2022-04-23 12:38] LABS: TOTAL PROTEIN 8.1 GM/DL (6.4-8.2)
[2022-04-23 12:40] LABS: BILIRUBIN,TOTAL 0.5 MG/DL (0.1-1.0)
[2022-04-23 12:42] LABS: CREATININE SERUM 1.61 MG/DL (0.60-1.30)
[2022-04-23] MEDS ORDERED: inSUlin (REGULAR) HUMAN 1 UNIT/0.01 ML (CHARGE PER UNIT) SC ONE (13:15)
[2022-04-23 14:08] VITALS: BP 110/92
== END 2022-04-23 14:08 | disposition home or self-care (01) ==
LOC: EDUNIT# 11:42 → ER 11:46
DX: E11.65 Type 2 diabetes mellitus with hyperglycemia (principal); G47.30 Sleep apnea, unspecified; Z79.4 Long term (current) use of insulin; Z99.89 Dependence on other enabling machines and devices; Z91.14 Patient's other noncompliance with medication regimen
CPT/HCPCS: 36415; 80053; 82947; 85025

== ENCOUNTER → 2022-05-12 | Outpatient (CLI) | payer MEDICARE, MEDICAID ==
[~2022-05-12] MED LIST changes: +CLOP-31 PO; -CLOP75TA69 PO
== END ==
LOC: WOUNDCARE 13:13
PROVIDERS: ATTEND Family Medicine
DX: I87.333 Chronic venous hypertension (idiopathic) with ulcer and inflammation of bilateral lower extremity (principal); I89.0 Lymphedema, not elsewhere classified; L97.212 Non-pressure chronic ulcer of right calf with fat layer exposed; L97.222 Non-pressure chronic ulcer of left calf with fat layer exposed; E11.622 Type 2 diabetes mellitus with other skin ulcer; E11.65 Type 2 diabetes mellitus with hyperglycemia; N18.30 Chronic kidney disease, stage 3 unspecified; E66.01 Morbid (severe) obesity due to excess calories; F17.220 Nicotine dependence, chewing tobacco, uncomplicated; Z91.14 Patient's other noncompliance with medication regimen; Z68.41 Body mass index [BMI] 40.0-44.9, adult
CPT/HCPCS: 11042; 36415; 84134; 85652; 86141

== ENCOUNTER → 2022-05-19 | Outpatient (CLI) | payer MEDICARE, MEDICAID | LOC: WOUNDCARE 10:47 | PROVIDERS: ATTEND Family Medicine | DX: I96 Gangrene, not elsewhere classified (principal); L97.212 Non-pressure chronic ulcer of right calf with fat layer exposed; L97.222 Non-pressure chronic ulcer of left calf with fat layer exposed; I87.333 Chronic venous hypertension (idiopathic) with ulcer and inflammation of bilateral lower extremity; N18.30 Chronic kidney disease, stage 3 unspecified; I89.0 Lymphedema, not elsewhere classified; E11.622 Type 2 diabetes mellitus with other skin ulcer; E11.65 Type 2 diabetes mellitus with hyperglycemia; F17.220 Nicotine dependence, chewing tobacco, uncomplicated; E66.01 Morbid (severe) obesity due to excess calories; Z91.14 Patient's other noncompliance with medication regimen; Z68.41 Body mass index [BMI] 40.0-44.9, adult | CPT/HCPCS: 11042; 87070; 87077; 87205 ==

== ENCOUNTER → 2022-05-23 | Outpatient (CLI) | payer MEDICARE, MEDICAID | LOC: WOUNDCARE 10:49 | PROVIDERS: ATTEND Family Medicine | DX: L97.212 Non-pressure chronic ulcer of right calf with fat layer exposed (principal); E11.622 Type 2 diabetes mellitus with other skin ulcer; E11.40 Type 2 diabetes mellitus with diabetic neuropathy, unspecified; J44.9 Chronic obstructive pulmonary disease, unspecified; I10 Essential (primary) hypertension; L97.222 Non-pressure chronic ulcer of left calf with fat layer exposed ==

== ENCOUNTER → 2022-05-23 | Outpatient (CLI) | payer MEDICARE, MEDICAID ==
--- NOTE | 2022-05-23 16:25 | Diagnostic Imaging Report ---
Exam: Nuclear medicine three-phase bone scan. Date: May 23, 2022. Indication: 57-year-old male, bilateral chronic ulcers at the level of the right and left calves. Comparison: Right ankle radiographs October 25, 2021. Findings: 26.5 mCi of technetium labeled MDP radiotracer was administered. Blood flow, blood pool, and delayed scintigraphic images were obtained at the level of the right left tibia and fibula. There is no asymmetrically increased or decreased blood flow in the region of the right or left tibia. There is abnormal radiotracer uptake projecting at the level of the right distal tibia and fibula near the tibiotalar joint on delayed imaging as well as additional abnormal radiotracer uptake in the right midfoot. There is no identified abnormal radiotracer uptake in the left tibia or fibula. Impression: 1. No 3 phase radiotracer activity to specifically suggest osteomyelitis. 2. Abnormal radiotracer uptake in the right distal tibia and fibula which is nonspecific. Correlation with current radiographs is recommended. Dictated by: Dictated on workstation # [id number]
== END ==
LOC: CARD 10:27
PROVIDERS: ATTEND Family Medicine
DX: L97.212 Non-pressure chronic ulcer of right calf with fat layer exposed (principal); L97.222 Non-pressure chronic ulcer of left calf with fat layer exposed
CPT/HCPCS: 78315

== ENCOUNTER → 2022-05-26 | Outpatient (CLI) | payer MEDICARE, MEDICAID | LOC: WOUNDCARE 10:37 | PROVIDERS: ATTEND Family Medicine | DX: I96 Gangrene, not elsewhere classified (principal); L97.212 Non-pressure chronic ulcer of right calf with fat layer exposed; L97.222 Non-pressure chronic ulcer of left calf with fat layer exposed; I87.313 Chronic venous hypertension (idiopathic) with ulcer of bilateral lower extremity; I89.0 Lymphedema, not elsewhere classified; E11.622 Type 2 diabetes mellitus with other skin ulcer; E11.65 Type 2 diabetes mellitus with hyperglycemia; F17.220 Nicotine dependence, chewing tobacco, uncomplicated; N18.30 Chronic kidney disease, stage 3 unspecified; E66.01 Morbid (severe) obesity due to excess calories; Z91.14 Patient's other noncompliance with medication regimen; B95.0 Streptococcus, group A, as the cause of diseases classified elsewhere; Z68.41 Body mass index [BMI] 40.0-44.9, adult | CPT/HCPCS: 11042 ==

== ENCOUNTER → 2022-06-02 | Outpatient (CLI) | payer MEDICARE, MEDICAID | LOC: WOUNDCARE 10:35 | PROVIDERS: ATTEND Family Medicine | DX: I87.333 Chronic venous hypertension (idiopathic) with ulcer and inflammation of bilateral lower extremity (principal); I96 Gangrene, not elsewhere classified; I89.0 Lymphedema, not elsewhere classified; E11.622 Type 2 diabetes mellitus with other skin ulcer; E11.65 Type 2 diabetes mellitus with hyperglycemia; N18.30 Chronic kidney disease, stage 3 unspecified; E11.22 Type 2 diabetes mellitus with diabetic chronic kidney disease; E66.01 Morbid (severe) obesity due to excess calories; E11.52 Type 2 diabetes mellitus with diabetic peripheral angiopathy with gangrene; L97.212 Non-pressure chronic ulcer of right calf with fat layer exposed; F17.220 Nicotine dependence, chewing tobacco, uncomplicated; Z91.14 Patient's other noncompliance with medication regimen; Z68.41 Body mass index [BMI] 40.0-44.9, adult | CPT/HCPCS: 11042 ==

== ENCOUNTER → 2022-06-09 | Outpatient (CLI) | payer MEDICARE, MEDICAID | LOC: WOUNDCARE 10:37 | PROVIDERS: ATTEND Family Medicine | DX: E11.622 Type 2 diabetes mellitus with other skin ulcer (principal); I96 Gangrene, not elsewhere classified; E11.52 Type 2 diabetes mellitus with diabetic peripheral angiopathy with gangrene; E11.65 Type 2 diabetes mellitus with hyperglycemia; E11.22 Type 2 diabetes mellitus with diabetic chronic kidney disease; E66.01 Morbid (severe) obesity due to excess calories; I87.333 Chronic venous hypertension (idiopathic) with ulcer and inflammation of bilateral lower extremity; I89.0 Lymphedema, not elsewhere classified; N18.30 Chronic kidney disease, stage 3 unspecified; L97.212 Non-pressure chronic ulcer of right calf with fat layer exposed; F17.220 Nicotine dependence, chewing tobacco, uncomplicated; Z91.14 Patient's other noncompliance with medication regimen; Z68.41 Body mass index [BMI] 40.0-44.9, adult | CPT/HCPCS: 11042 ==

== ENCOUNTER → 2022-06-23 | Outpatient (CLI) | payer MEDICARE, MEDICAID | LOC: WOUNDCARE 10:41 | PROVIDERS: ATTEND Family Medicine | DX: I87.333 Chronic venous hypertension (idiopathic) with ulcer and inflammation of bilateral lower extremity (principal); L97.212 Non-pressure chronic ulcer of right calf with fat layer exposed; I89.0 Lymphedema, not elsewhere classified; E11.622 Type 2 diabetes mellitus with other skin ulcer; E11.65 Type 2 diabetes mellitus with hyperglycemia; E11.22 Type 2 diabetes mellitus with diabetic chronic kidney disease; N18.30 Chronic kidney disease, stage 3 unspecified; E66.01 Morbid (severe) obesity due to excess calories; Z91.14 Patient's other noncompliance with medication regimen; F42.4 Excoriation (skin-picking) disorder; E11.52 Type 2 diabetes mellitus with diabetic peripheral angiopathy with gangrene; F17.220 Nicotine dependence, chewing tobacco, uncomplicated | CPT/HCPCS: 29581 ==

== ENCOUNTER → 2022-06-30 | Outpatient (CLI) | payer MEDICARE, MEDICAID | LOC: WOUNDCARE 10:46 | PROVIDERS: ATTEND Family Medicine | DX: I87.333 Chronic venous hypertension (idiopathic) with ulcer and inflammation of bilateral lower extremity (principal); I89.0 Lymphedema, not elsewhere classified; I96 Gangrene, not elsewhere classified; E11.622 Type 2 diabetes mellitus with other skin ulcer; E11.65 Type 2 diabetes mellitus with hyperglycemia; E11.52 Type 2 diabetes mellitus with diabetic peripheral angiopathy with gangrene; E11.22 Type 2 diabetes mellitus with diabetic chronic kidney disease; L97.212 Non-pressure chronic ulcer of right calf with fat layer exposed; N18.30 Chronic kidney disease, stage 3 unspecified; E66.01 Morbid (severe) obesity due to excess calories; F42.4 Excoriation (skin-picking) disorder; F17.220 Nicotine dependence, chewing tobacco, uncomplicated; Z68.41 Body mass index [BMI] 40.0-44.9, adult; Z91.14 Patient's other noncompliance with medication regimen | CPT/HCPCS: 29581 ==

== ENCOUNTER → 2022-07-07 | Outpatient (CLI) | payer MEDICARE, MEDICAID | LOC: WOUNDCARE 10:34 | PROVIDERS: ATTEND Family Medicine | DX: I87.333 Chronic venous hypertension (idiopathic) with ulcer and inflammation of bilateral lower extremity (principal); I89.0 Lymphedema, not elsewhere classified; I96 Gangrene, not elsewhere classified; E11.622 Type 2 diabetes mellitus with other skin ulcer; E11.65 Type 2 diabetes mellitus with hyperglycemia; E11.52 Type 2 diabetes mellitus with diabetic peripheral angiopathy with gangrene; E11.22 Type 2 diabetes mellitus with diabetic chronic kidney disease; L97.212 Non-pressure chronic ulcer of right calf with fat layer exposed; N18.30 Chronic kidney disease, stage 3 unspecified; E66.01 Morbid (severe) obesity due to excess calories; F42.4 Excoriation (skin-picking) disorder; F17.220 Nicotine dependence, chewing tobacco, uncomplicated; Z68.41 Body mass index [BMI] 40.0-44.9, adult; Z91.14 Patient's other noncompliance with medication regimen | CPT/HCPCS: 99212 ==

== ENCOUNTER 2023-02-28 18:52 | Emergency (ER) | payer MEDICARE, MEDICAID ==
[~2023-02-28] VITALS: Ht 180.3 cm; Wt 125.9 kg
[~2023-02-28 18:52] MED LIST changes: -INSU100I29 SQ; +INSU100I30 SQ; +POLY10DR20 OP; -POLY10DR31 OP; +POTA-330 PO; -POTA-51 PO
--- NOTE | 2023-02-28 19:24 | ED Lower Extremity ---
General Chief Complaint: Lower Extremity Stated Complaint: RT LEG INJ WOUND Nursing Triage Note: PATIENT STATES THAT HE "DOESN'T KNOW WHAT HAPPENED". HE GOT IN HIS TRUCK AND SAW HIS RIGHT LOWER EXTREM ON THE OWENS BLEEDING. HE STATES THAT HE HAS NEUROPATHY AND IS DIABETIC. Source: patient Exam Limitations: no limitations History of Present Illness Date Seen by Provider: Feb 28, 2023 Time Seen by Provider: 19:22 Initial Comments Patient is a 57-year-old male who presents ED with right lower leg injury. Patient states he was getting into his truck when he hit his leg against the emergency brake. Patient reports abrasion to the right lower extremity. Noted bleeding. He is currently on a anticoagulant. History of diabetes. Chronic numbness and tingling the lower extremities. Patient immediately wrapped up the right lower leg with improvement of bleeding. Not up-to-date his tetanus within the past 5 years. Allergies and Home Medications Allergies Coded Allergies: No Known Drug Allergies (Unverified , 02/26/14) Patient Home Medication List Home Medication List Reviewed: Yes Apixaban (Eliquis) 5 Mg Tablet, 5 MG PO BID, (Reported) Entered as Reported by: ELBA GALLOWAY on 08/03/21 1019 Atorvastatin Calcium (Atorvastatin Calcium) 80 Mg Tablet, 80 MG PO HS, (Reported) Entered as Reported by: ELBA GALLOWAY on 08/03/21 1019 Cefuroxime Axetil (Cefuroxime) 500 Mg Tablet, 500 MG PO BID Prescribed by: HAWA ENCINAS on 09/29/21 0814 Cephalexin (Cephalexin) 500 Mg Tablet, 500 MG PO QID Prescribed by: MOHIT CASTELLANOS on 02/28/23 1932 Clopidogrel Bisulfate (Clopidogrel) 75 Mg Tablet, 75 MG PO DAILY, (Reported) Entered as Reported by: ELBA GALLOWAY on 08/03/21 1019 Dapagliflozin Propanediol (Farxiga) 10 Mg Tablet, 10 MG PO DAILY, (Reported) Entered as Reported by: ELBA GALLOWAY on 08/31/21 1057 Dulaglutide (Trulicity) 1.5 Mg/0.5 Ml Pen.injctr, 1.5 MG IJ TARIQ, (Reported) Entered as Reported by: ELBA GALLOWAY on 08/03/21 1019 Duloxetine HCl (Duloxetine HCl) 30 Mg Capsule.dr, 30 MG PO BID, (Reported) Entered as Reported by: ELBA GALLOWAY on 08/03/21 1019 Furosemide (Furosemide) 40 Mg Tablet, 80 MG PO DAILY, (Reported) Entered as Reported by: CLINTON ARGUETA on 03/12/20 1225 Gabapentin (Gabapentin) 600 Mg Tablet, 600 MG PO TID, (Reported) Entered as Reported by: ELBA GALLOWAY on 08/03/21 1019 Insulin Aspart (Novolog Flexpen) 300 Units/3 Ml Solution, 20 UNITS SQ morning and noon, (Reported) Entered as Reported by: ELBA GALLOWAY on 08/31/21 1057 Insulin Aspart (Novolog Flexpen) 100 Unit/Ml (3 Ml) Solution, 24 UNITS SQ evening, (Reported) Entered as Reported by: CLINTON ARGUETA on 09/28/21 0855 Insulin Detemir (Levemir Flextouch) 100 Unit/1 Ml Insuln.pen, 30 UNIT SQ HS, (Reported) Entered as Reported by: ELBA GALLOWAY on 08/31/21 1057 Insulin Detemir (Levemir Flextouch) 100 Unit/1 Ml Insuln.pen, 35 UNIT SQ DAILY, (Reported) Entered as Reported by: ELBA GALLOWAY on 08/31/21 1057 Oxycodone Hcl (Oxyir Tablet) 5 Mg Tab, 5 MG PO Q4HR PRN for PAIN-SEE DOSE INSTRUCTIONS Prescribed by: GAYATRI GILL on 09/01/21 1437 Potassium Chloride (Potassium Chloride) 20 Meq Tab.er.prt, 20 MEQ PO DAILY, (R eported) Entered as Reported by: ELBA GALLOWAY on 08/03/21 1019 Review of Systems Constitutional: No chills, No diaphoresis EENTM: No ear pain, No blurred vision, No double vision Respiratory: No cough, No dyspnea on exertion Cardiovascular: No chest pain Gastrointestinal: No abdominal pain, No nausea, No vomiting Genitourinary: No decreased output, No discharge Musculoskeletal: No back pain, No joint pain; muscle pain Skin: change in color All Other Systems Reviewed Negative Unless Noted: Yes Past Ztnsztd-Qfuxpj-Bfwcty Hx Immunizations Up To Date Tetanus Booster (TDap): Unknown Seasonal Allergies Seasonal Allergies: No Past Medical History Surgery/Hospitalization HX: HX, STROKE AND NH, DM TYPE2 Surgeries: No Tonsillectomy Respiratory: Yes Pneumonia, COPD Currently Using CPAP: Yes Cardiac: Yes Atrial Fibrillation, Cardiomyopathy, Coronary Artery Disease, High Cholesterol, Hypertension Neurological: Yes Neuropathy, TIA Reproductive Disorders: No Sexually Transmitted Disease: No HIV/AIDS: No Genitourinary: No Gastrointestinal: No Musculoskeletal: Yes Degenerate Disk Disease, Arthritis Endocrine: Yes (TYPE 2 DM) Diabetes, Insulin dep Loss of Vision: Denies Hearing Impairment: Denies Cancer: No Psychosocial: No Integumentary: No Blood Disorders: No Adverse Reaction/Blood Tranf: No Family Medical History Coronary thrombosis 19 FATHER Diabetes mellitus G8 BROTHER FH: lung cancer 19 MOTHER (MOTHER FROM LUNG CA) Hypercholesterolemia 19 FATHER Myocardial infarction 19 FATHER ( FROM NH) Heart Disease, Cancer, Diabetes, Hypertension Physical Exam Vital Signs Vital Signs - First Documented 02/28/23 19:04 Temp 35.9 Pulse 103 Resp 20 B/P (MAP) 117/66 (83) Pulse Ox 98 O2 Delivery Room Air Capillary Refill : Less Than 3 Seconds Height, Weight, BMI Height: 5'11.00" Weight: 358lbs. 1.0oz. 162.295367mu; 38.00 BMI Method: General Appearance: WD/WN, no apparent distress HEENT: PERRL/EOMI, normal ENT inspection, TMs normal, pharynx normal Neck: non-tender, full range of motion, supple Cardiovascular: regular rate, rhythm, no edema, no gallop, no JVD Respiratory: chest non-tender, lungs clear, normal breath sounds, no respiratory distress, no accessory muscle use Gastrointestinal: normal bowel sounds, non tender, soft, no organomegaly Knees: bilateral knee non-tender, bilateral knee normal inspection, bilateral knee normal range of motion Ankles: bilateral ankle non-tender, bilateral ankle normal range of motion Feet: bilateral foot non-tender, bilateral foot normal range of motion Neurologic/Tendon: normal sensation, normal motor functions, normal tendon functions 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 Mild bleeding. Stasis dermatitis bilateral lower extremity.) Procedures/Interventions Date of ETT Placement: Dec 12, 2019 Progress/Results/Core Measures Results/Orders My Orders Orders - ILIANA SEVERINO Dipht/Pertuss(Acell)/Tet Adult (Dipht/Pe (02/28/23 19:30) Cephalexin Capsule (Cephalexin Capsule) (02/28/23 19:30) Medications Given in ED Current Medications Medications Dose Ordered Sig/Hailey Route Start Time Stop Time Status Last Admin Dose Admin Diphtheria/ Tetanus/Acell Pertussis 0.5 ml ONCE ONCE IM 02/28/23 19:30 02/28/23 19:31 DC 02/28/23 19:43 0.5 ML Vital Signs/I&O 02/28/23 19:04 Temp 35.9 Pulse 103 Resp 20 B/P (MAP) 117/66 (83) Pulse Ox 98 O2 Delivery Room Air Blood Pressure Mean: 83 Departure Communication (PCP) Skin avulsion to right lower extremity. Patient is diabetic. Patient is currently on Plavix. Patient with mild bleeding. Patient with a skin avulsion. Skin skin cannot be approximated. Removed some superficial tissue. Localized lidocaine 1% with epinephrine was used to stop the small area of ble eding. Cleaned the area with normal saline and Shur cleans. Bleeding was controlled. Applied Xeroform and Kerlix. Continue with compression. Remove dressing twice a day. Due to his history of diabetes and history of cellulitis will discharge with Keflex prophylactically. Updated his tetanus. If increased redness or swelling to return back to ED. Follow-up with your PCP in 2 to 3 days for reevaluation. Discussed wound cares. Topical Neosporin twice a day. Impression Primary Impression: Leg abrasion Disposition: HOME, SELF-CARE Condition: Stable Departure-Patient Inst. Decision time for Depature: 19:23 Referrals: [facility] [place] [facility] [place],LOCAL PHYSICIAN (PCP) Primary Care Physician Patient Instructions: Skin Abrasions (DC) Add. Discharge Instructions: Keep the area covered. Switch out gauze twice a day. If increased redness or swelling to return back to ED. Increased bleeding return back to ED. All discharge instructions reviewed with patient and/or family. Voiced understanding. Scripts Cephalexin (Cephalexin) 500 Mg Tablet 500 MG PO QID for 7 Days, #28 TAB Prov: ILIANA SEVERINO 02/28/23 ILIANA SEVERINO Feb 28, 2023 19:24
[2023-02-28] MEDS ORDERED: Tetanus/Diphtheria/Pertussis (Acell) ADULT Vaccine 0.5 ML IM ONE (19:30)
[2023-02-28] MEDS ORDERED: CEPHALEXIN 250 MG CAPSULE PO STA (19:30)
[2023-02-28] MEDS ORDERED: CEPH500T PO (19:32)
[2023-02-28 19:43] VITALS: BP 122/69
== END 2023-02-28 19:46 | disposition home or self-care (01) ==
LOC: EDUNIT# 18:52 → ER 18:55
DX: S80.811A Abrasion, right lower leg, initial encounter (principal); E11.9 Type 2 diabetes mellitus without complications; I25.2 Old myocardial infarction; I48.91 Unspecified atrial fibrillation; Z23 Encounter for immunization; Z79.4 Long term (current) use of insulin; Z79.01 Long term (current) use of anticoagulants; W22.8XXA Striking against or struck by other objects, initial encounter
CPT/HCPCS: 90715